=== PATIENT | male | born 1935 | race Caucasian/White ===

== ENCOUNTER → 2016-06-11 | Outpatient (CLI) | payer MEDICARE ==
[~2016-06-11] MED LIST: ACET325T38 PO; BRIN1S OP; CIPR-225 PO; CITA20TA12 PO; DIPH25CA79 PO; DONE10TA12 PO; LATA2.5D19 OP; MELA5TAB14 PO; MEMA10TA2 PO; METO-333 PO; POLY17PO6 PO; SENN-40 PO; TRAZ-28 PO
--- OUTSIDE RECORDS SUMMARY | 2016-06-11 13:10 | XMS REPORT | Continuity of Care Document ---
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 If you do not see the information that you expected, contact Release of Information in the Health Information Management department at [phone] for further assistance in locating additional records.[facility] Active Allergies and Adverse Reactions No Known Allergies Current Medications Prescription Sig. Disp. Refills Start End Date Status Date memantine (NAMENDA) 10 mg Take 1 Tab by mouth twice 60 Tab 0 05/24/20 Active tablet daily. 16 acetaminophen (TYLENOL) Take 2 Tabs by mouth 90 Tab 0 20 Active 325 mg tablet every 6 hours as needed 16 for Pain. metoprolol(#) (LOPRESSOR) Take 0.61 mL by mouth 30 mL 0 05/24/20 Active 10 mg/mL twice daily. 16 donepezil (ARICEPT) 10 mg Take 1 Tab by mouth at 30 Tab 0 05/24/20 Active tablet bedtime daily. 16 Indications: Dementia polyethylene glycol 3350 Take 1 Packet by mouth 36 Each 0 05/24/20 Active (MIRALAX) 17 g packet twice daily. 16 senna/docusate Take 1 Tab by mouth twice 60 Tab 0 05/24/20 Active (SENOKOT-S) 8.6/50 mg daily. 16 tablet brinzolamide(+) (AZOPT) 1 Apply 1 Drop to both eyes 15 mL 0 19/20 Active % ophthalmic suspension twice daily. 16 latanoprost (XALATAN) Apply 1 Drop to both eyes 2.5 mL 0 05/24/20 Active 0.005 % ophthalmic at bedtime daily. 16 solution melatonin 5 mg tab Take 1 Tab by mouth at 30 Each 0 05/24/20 Active bedtime daily. 16 Indications: insomnia citalopram (CELEXA) 20 mg Take 1 Tab by mouth 30 Tab 0 05/24/20 Active tablet daily. 16 traZODone (DESYREL) 50 mg Take 1 Tab by mouth at 30 Tab 0 05/24/20 Active tablet bedtime as needed. 16 Indications: insomnia donepezil (ARICEPT) 10 mg Take 10 mg by mouth at 05/24/20 Discontin tablet bedtime daily. 16 ued latanoprost (XALATAN) Apply 1 Drop to both eyes 05/24/20 Discontin 0.005 % ophthalmic at bedtime daily. 16 ued solution memantine (NAMENDA) 10 mg Take 10 mg by mouth twice 05/24/20 Discontin tablet daily. 16 ued brinzolamide(+) (AZOPT) 1 Apply 1 Drop to both eyes 05/24/20 Discontin % ophthalmic suspension twice daily. 16 ued memantine (NAMENDA) 10 mg Take 1 Tab by mouth twice 60 Tab 0 05/24/20 05/24/20 Discontin tablet daily. 16 16 ued acetaminophen (TYLENOL) Take 2 Tabs by mouth 90 Tab 0 05/24/2005/24 Discontin 325 mg tablet every 6 hours as needed 16 16 ued for Pain. metoprolol(#) (LOPRESSOR) Take 0.61 mL by mouth 30 mL 0 05/24/20 Discontin 10 mg/mL twice daily. 16 16 ued donepezil (ARICEPT) 10 mg Take 1 Tab by mouth at 30 Tab 0 05/24/20 05/24/20 Discontin tablet bedtime daily. 16 16 ued Indications: Dementia polyethylene glycol 3350 Take 1 Packet by mouth 36 Each 0 05/24/20 05/24/20 Discontin (MIRALAX) 17 g packet twice daily. 16 16 ued senna/docusate Take 1 Tab by mouth twice 60 Tab 0 05/24/20 05/24/20 Discontin (SENOKOT-S) 8.6/50 mg daily. 16 16 ued tablet brinzolamide(+) (AZOPT) 1 Apply 1 Drop to both eyes 15 mL 0 05/24/20 05/24/20 Discontin % ophthalmic suspension twice daily. 16 16 ued latanoprost (XALATAN) Apply 1 Drop to both eyes 2.5 mL 0 05/24/20 Discontin 0.005 % ophthalmic at bedtime daily. 16 16 ued solution melatonin 5 mg tab Take 1 Tab by mouth at 30 Each 0 05/24/20 Discontin bedtime daily. 16 16 ued Indications: insomnia citalopram (CELEXA) 20 mg Take 1 Tab by mouth 30 Tab 0 05/24/20 Discontin tablet daily. 16 16 ued traZODone (DESYREL) 50 mg Take 1 Tab by mouth at 30 Tab 0 05/24/20 05/24/20 Discontin tablet bedtime as needed. 16 16 ued Indications: insomnia pneumococcal 23-amanda Inject 0.5 mL into the 0.5 mL 0 05/24/20 vaccine (PPSV23) muscle once for 1 dose. 16 16 (PNEUMOVAX 23) 25 mcg/0.5 mL injection Active Problems Problem Noted Date Fall 05/22/2016 Atrial fibrillation (HCC) 05/22/2016 Sleep disturbance 05/22/2016 Dementia with behavioral disturbance 05/21/2016 Chronic anticoagulation 05/20/2016 SAH (subarachnoid hemorrhage) (HCC) 05/19/2016 Most Recent Encounters Date Type Specialty Providers Description 06/03/2016 Screening Form 06/01/2016 Ancillary Radiology Outpatient, Radiologist Diagnosis unknown Orders (Primary Dx) 05/24/2016 Orders Only Neurosurgery Gaston Simms MD Subdural hematoma (HCC) (Primary Dx) 05/19/2016 [facility] Quiana Bauer MD SAH (subarachnoid - Encounter Wander Holden MD hemorrhage) (HCC) 05/24/2016 05/19/2016 Hospital Radiology Encounter 05/19/2016 Hospital Radiology Encounter Immunizations Name Dates Previously Given Next Due Pneumococcal Vaccine 05/24/2016 (23-Amanda Adult) Social History Tobacco Use Types Packs/Day Years Used Date Former Smoker Alcohol Use Drinks/Week oz/Week Comments No Last Filed Vital Signs Vital Sign Reading Time Taken Blood Pressure 130/82 05/24/2016 12:11 PM CLINIC CLERK Pulse 99 05/24/2016 12:11 PM CLINIC CLERK Temperature 36.6 C (97.8 F) 05/24/2016 12:11 PM CLINIC CLERK Respiratory Rate - - Height 1.727 m (5' 8") 05/19/2016 9:15 PM CLINIC CLERK Weight 67.6 kg (149 lb 0.5 oz) 05/19/2016 9:15 PM CLINIC CLERK Body Mass Index 22.67 05/19/2016 9:15 PM CLINIC CLERK Oxygen Saturation 96% 05/24/2016 12:11 PM CLINIC CLERK Plan of Care Health Maintenance Due Date Last Done Comments Physical (Comprehensive) 01/28/1942 Exam Pertussis Vaccine 01/28/1944 Tetanus Vaccine 1950 Shingles Vaccine 1993 Influenza Vaccine 02/05/2016 Prevnar/Pneumovax (#2) 05/24/2017 05/24/2016 Procedures from Last 3 Months Procedure Name Priority Date/Time Associated Diagnosis Comments ECG-SCAN 05/25/2016 Results for this 1:26 PM CLINIC CLERK procedure are in the results section. ECG UNCONFIRMED-SCAN 05/20/2016 Results for this 6:44 AM CLINIC CLERK procedure are in the results section. Results from Last 3 Months ECG-SCAN (05/25/2016 1:26 PM) Narrative Ordered by an unspecified provider. PHOSPHORUS (05/22/2016 5:40 AM)Only the most recent of 4 results within the time period is included. Component Value Range Phosphorus 3.2 2.0-4.0 MG/DL Specimen Blood MAGNESIUM (05/22/2016 5:40 AM)Only the most recent of 4 results within the time period is included. Component Value Range Magnesium 2.0 1.6-2.6 mg/dL Specimen Blood BASIC METABOLIC PANEL (05/22/2016 5:40 AM)Only the most recent of 4 results within the time period is included. Component Value Range Sodium 137 137-147 MMOL/L Potassium 4.2 3.5-5.1 MMOL/L Chloride 106 98-110 MMOL/L CO2 25 21-30 MMOL/L Anion Gap 6 3-12 Glucose 101 (H) 70-100 MG/DL Blood Urea Nitrogen 17 7-25 MG/DL Creatinine 0.79 0.4-1.24 MG/DL Calcium 8.5 8.5-10.6 MG/DL eGFR Non >60Comment: >60 mL/min The eGFR is not validated for use in drug dosing adjustments. Continue to use estimated creatinine clearance per dosing reference text. Please contact the Clinical Pharmacist for questions. eGFR >60Comment: >60 mL/min The eGFR is not validated for use in drug dosing adjustments. Continue to use estimated creatinine clearance per dosing reference text. Please contact the Clinical Pharmacist for questions. Specimen Blood CBC (05/22/2016 5:40 AM)Only the most recent of 4 results within the time period is included. Component Value Range White Blood Cells 5.3 4.5-11.0 K/UL RBC 3.78 (L) 4.4-5.5 M/UL Hemoglobin 12.2 (L) 13.5-16.5 GM/DL Hematocrit 36.3 (L) 40-50 % MCV 96.0 80-100 FL MCH 32.2 26-34 PG MCHC 33.5 32.0-36.0 G/DL RDW 14.3 11-15 % Platelet Count 102 (L) 150-400 K/UL MPV 7.2 7-[address] HEAD WO CONTRAST (05/20/2016 2:02 PM)Only the most recent of 2 results within the time period is included. Impressions 1. Improving interhemispheric subarachnoid hemorrhage, with trace residual hemorrhage along the pericallosal cistern. 2. Improving or resolved trace subdural hemorrhage, with small residual hypodense subdural effusions. 3. Old right basal ganglia lacunar infarcts and mild nonspecific white matter disease likely related to chronic microvascular ischemic disease. Approved by Sal Toribio M.D. on 05/20/2016 2:32 PM By my electronic signature, I attest that I have personally reviewed the images for this examination and formulated the interpretations and opinions expressed in this report Finalized by Pravin Velazquez M.D. on 05/20/2016 2:36 PM. Dictated by Sal Toribio M.D. on 05/20/2016 2:03 PM. Narrative EXAM: CT HEAD HISTORY: 81-year-old male, SAH. TECHNIQUE: Multiple contiguous axial images were obtained of the brain without intravenous contrast. COMPARISON: CT head May 19, 2016 FINDINGS: Generalized cerebral volume loss with concordant ex vacuo dilatation of the ventricles. Scattered supratentorial white matter hypodensities compatible with nonspecific white matter disease. There are several small old lacunar type infarcts in the right basal ganglia. There is improving subarachnoid hemorrhage along the interhemispheric fissure with mild residual subarachnoid hemorrhage along the pericallosal cistern. There is also improvement in trace subdural hemorrhage, with small residual bilateral hypodense subdural effusions, measuring less than 5 mm in thickness. There is no midline shift or herniation. The andrews white matter interfaces are maintained. The basal cisterns are patent. The mastoid air cells and visualized paranasal sinuses are well-aerated. Procedure Note Interface, Radiant Results - Karla May 20, 2016 2:39 PM CLINIC CLERK EXAM: CT HEAD HISTORY: 81-year-old male, SAH. TECHNIQUE: Multiple contiguous axial images were obtained of the brain without intravenous contrast. COMPARISON: CT head May 19, 2016 FINDINGS: Generalized cerebral volume loss with concordant ex vacuo dilatation of the ventricles. Scattered supratentorial white matter hypodensities compatible with nonspecific white matter disease. There are several small old lacunar type infarcts in the right basal ganglia. There is improving subarachnoid hemorrhage along the interhemispheric fissure with mild residual subarachnoid hemorrhage along the pericallosal cistern. There is also improvement in trace subdural hemorrhage, with small residual bilateral hypodense subdural effusions, measuring less than 5 mm in thickness. There is no midline shift or herniation. The andrews white matter interfaces are maintained. The basal cisterns are patent. The mastoid air cells and visualized paranasal sinuses are well-aerated. IMPRESSION 1. Improving interhemispheric subarachnoid hemorrhage, with trace residual hemorrhage along the pericallosal cistern. 2. Improving or resolved trace subdural hemorrhage, with small residual hypodense subdural effusions. 3. Old right basal ganglia lacunar infarcts and mild nonspecific white matter disease likely related to chronic microvascular ischemic disease. Approved by Sal Toribio M.D. on 05/20/2016 2:32 PM By my electronic signature, I attest that I have personally reviewed the images for this examination and formulated the interpretations and opinions expressed in this report Finalized by Pravin Velazquez M.D. on 05/20/2016 2:36 PM. Dictated by Sal Toribio M.D. on 05/20/2016 2:03 PM. ECG UNCONFIRMED-SCAN (05/20/2016 6:44 AM) Narrative Ordered by an unspecified provider. ALBUMIN (05/20/2016 5:15 AM) Component Value Range Albumin 3.6 3.5-5.0 G/DL URINALYSIS, MICROSCOPIC (05/19/2016 9:30 PM) Component Value Range WBCs,UA 0-2 0-2 /HPF RBCs,UA 2-10 0-3 /HPF MucousUA TRACE Squamous Epithelial Cells 0-2 0-5 Specimen Urine URINALYSIS DIPSTICK (05/19/2016 9:30 PM) Component Value Range Color,UA YELLOW Turbidity,UA CLEAR CLEAR-CLEAR Specific [place]-Urine >1.050 (H) 1.003-1.035 pH,UA 5.0 5.0-8.0 Protein,UA NEG NEG-NEG Glucose,UA NEG NEG-NEG Ketones,UA TRACE (A) NEG-NEG Bilirubin,UA NEG NEG-NEG Blood,UA 2+ (A) NEG-NEG Urobilinogen,UA NORMAL NORM-NORMAL Nitrite,UA NEG NEG-NEG Leukocytes,UA NEG NEG-NEG Urine Ascorbic Acid, UA NEG NEG-NEG Specimen Urine CULTURE-URINE W/SENSITIVITY (05/19/2016 9:30 PM) Component Value Range Battery Name URINE CULTURE Specimen Description URINE, CLEAN CATCH Special Requests NONE Culture NO GROWTH Report Status FINAL 05/20/2016 Specimen Urine - Urine,Clean Catch TEG WITH KAOLIN (05/19/2016 8:21 PM) Component Value Range MA Kaolin 51.9 50.0-70.0 MM R Kaolin 2.8 (L) 3.0-9.0 MIN RK Kaolin 6.0 4.0-12.0 MIN K [place]olin 3.2 (H) 1.0-3.0 MIN Angle Kaolin 61.2 55-75 DEG Lysis30 0.0 0.0-8.0 % Specimen Blood PTT (APTT) (05/19/2016 7:18 PM) Component Value Range APTT 25.9 24.0-40.0 SEC PROTIME INR (PT) (05/19/2016 7:18 PM) Component Value Range INR 1.1 0.8-1.2 TROPONIN-I (05/19/2016 7:18 PM) Component Value Range Troponin-I 0.03 0.0-0.05 NG/ML Specimen Blood CT HEAD EXTERNAL IMAGING (05/19/2016 12:15 AM) Narrative This order has been auto finalized and does not contain a result. CT CHEST/ABD/PEL EXTERNAL IMAGING (05/19/2016) Narrative This order has been auto finalized and does not contain a result.
--- NOTE | 2016-06-11 14:06 | Diagnostic Imaging Report ---
PROCEDURE: CT head without contrast. TECHNIQUE: Multiple contiguous axial images were obtained through the brain without the use of intravenous contrast. INDICATION: Subdural hemorrhage followup. FINDINGS: The ventricles are normal in size, shape, and position. There is no acute parenchymal hemorrhage, edema, or mass. There are small bilateral subdural effusions present with no acute hemorrhage seen. The subdural hemorrhage along falx that was seen on a study from 05/19/2016 has resolved. IMPRESSION: There has been resolution of the subdural hemorrhage along the falx. There have developed small bilateral subdural effusions measuring less than 5 mm in thickness. No new hemorrhage has developed in the interval. Dictated by: Dictated on workstation # [id number]
== END ==
LOC: RAD 13:05
PROVIDERS: ATTEND Neurological Surgery
DX: I62.00 Nontraumatic subdural hemorrhage, unspecified (principal)
CPT/HCPCS: 70450

== ENCOUNTER → 2016-06-11 | Outpatient (CLI) | payer MEDICARE ==
--- OUTSIDE RECORDS SUMMARY | 2016-06-11 13:17 | XMS REPORT | Continuity of Care Document ---
Author Author [facility] Organization [facility] Address Unknown Phone Unavailable Care Team Providers Care Extrusion Die Coordinator Name Role Phone Tim Proctor PCP [phone] Source Comments Some departments are not documenting in the electronic medical record. If you do not see the information that you expected, contact Release of Information in the Health Information Management department at [phone] for further assistance in locating additional records.[facility] Active Allergies and Adverse Reactions No [...] MD Subdural hematoma (HCC) (Primary Dx) 05/19/2016 [facility] Quiana Bauer MD SAH (subarachnoid - Encounter [...] Taken Blood Pressure 130/82 05/24/2016 12:11 PM TIRE CHANGER Pulse 99 05/24/2016 12:11 PM TIRE CHANGER Temperature 36.6 C (97.8 F) 05/24/2016 12:11 PM TIRE CHANGER Respiratory Rate - - Height 1.727 m (5' 8") 05/19/2016 9:15 PM TIRE CHANGER Weight 67.6 kg (149 lb 0.5 oz) 05/19/2016 9:15 PM TIRE CHANGER Body Mass Index 22.67 05/19/2016 9:15 PM TIRE CHANGER Oxygen Saturation 96% 05/24/2016 12:11 PM TIRE CHANGER Plan of Care Health Maintenance Due Date Last Done Comments Physical (Comprehensive) 01/28/1942 Exam Pertussis Vaccine 01/28/1944 Tetanus Vaccine 1950 Shingles Vaccine 1993 Influenza Vaccine 02/05/2016 Prevnar/Pneumovax (#2) 05/24/2017 05/24/2016 Procedures from Last 3 Months Procedure Name Priority Date/Time Associated Diagnosis Comments ECG-SCAN 05/25/2016 Results for this 1:26 PM TIRE CHANGER procedure are in the results section. ECG UNCONFIRMED-SCAN 05/20/2016 Results for this 6:44 AM TIRE CHANGER procedure are in the results section. Results [...] - Karla May 20, 2016 2:39 PM TIRE CHANGER EXAM: CT HEAD HISTORY: 81-year-old male, SAH. [...] Range Color,UA YELLOW Turbidity,UA CLEAR CLEAR-CLEAR Specific [place]-Urine >1.050 (H) 1.003-1.035 pH,UA 5.0 5.0-8.0 Protein,UA [...]
--- NOTE | 2016-06-11 15:00 | Diagnostic Imaging Report ---
INDICATION: Left-sided scrotal swelling. COMPARISON: None. DISCUSSION: Sonographic evaluation of the scrotum was performed. The testicles appear normal and symmetric in echotexture and size bilaterally with normal color Doppler blood flow. The right testicle measures 3.3 x 2.3 x 2.1 cm. The left testicle measures 3.0 x 2.1 x 2.5 cm. Large hydroceles are noted bilaterally. The epididymides are unremarkable. The scrotal wall is unremarkable. There is a left inguinal hernia containing peristalsing bowel loops. IMPRESSION: 1. Left inguinal hernia containing bowel. 2. Large bilateral hydroceles. Dictated by: Dictated on workstation # [id number]
== END ==
LOC: RAD 13:12
PROVIDERS: ATTEND Physician Assistant
DX: K40.90 Unilateral inguinal hernia, without obstruction or gangrene, not specified as recurrent (principal); N43.3 Hydrocele, unspecified
CPT/HCPCS: 76870

== ENCOUNTER 2016-06-19 01:22 | Observation (INO) | payer MEDICARE ==
[2016-06-19] VITALS (9 sets, daily range): BP systolic 93–147; BP diastolic 65–98
[~2016-06-19] VITALS: Ht 177.8 cm; Wt 64.1 kg
--- OUTSIDE RECORDS SUMMARY | 2016-06-19 01:28 | XMS REPORT | Continuity of Care Document ---
Author Author [facility] Organization [facility] Address Unknown Phone Unavailable Care Team Providers Care Shipfitter Helper Name Role Phone Tim Proctor PCP [phone] Source Comments Some departments are not documenting in the electronic medical record. If you do not see the information that you expected, contact Release of Information in the Health Information Management department at [phone] for further assistance in locating additional records.[facility] Active Allergies and Adverse Reactions No [...] MD Subdural hematoma (HCC) (Primary Dx) 05/19/2016 [facility] Quiana Bauer MD SAH (subarachnoid - [...] Taken Blood Pressure 130/82 05/24/2016 12:11 PM LINE CLOSER Pulse 99 05/24/2016 12:11 PM LINE CLOSER Temperature 36.6 C (97.8 F) 05/24/2016 12:11 PM LINE CLOSER Respiratory Rate - - Height 1.727 m (5' 8") 05/19/2016 9:15 PM LINE CLOSER Weight 67.6 kg (149 lb 0.5 oz) 05/19/2016 9:15 PM LINE CLOSER Body Mass Index 22.67 05/19/2016 9:15 PM LINE CLOSER Oxygen Saturation 96% 05/24/2016 12:11 PM LINE CLOSER Plan of Care Health Maintenance Due Date Last Done Comments Physical (Comprehensive) 01/28/1942 Exam Pertussis Vaccine 01/28/1946 Tetanus Vaccine 1950 Shingles Vaccine 1993 Influenza Vaccine 02/05/2016 Prevnar/Pneumovax (#2) 05/24/2017 05/24/2016 Procedures from Last 3 Months Procedure Name Priority Date/Time Associated Diagnosis Comments ECG-SCAN 05/25/2016 Results for this 1:26 PM LINE CLOSER procedure are in the results section. ECG UNCONFIRMED-SCAN 05/20/2016 Results for this 6:44 AM LINE CLOSER procedure are in the results section. Results [...] - Karla May 20, 2016 2:39 PM LINE CLOSER EXAM: CT HEAD HISTORY: 81-year-old male, SAH. [...] Range Color,UA YELLOW Turbidity,UA CLEAR CLEAR-CLEAR Specific [place]-Urine >1.050 (H) 1.003-1.035 pH,UA 5.0 5.0-8.0 Protein,UA [...]
[2016-06-19] MEDS ORDERED: TETANUS,DIPTH,PERTUSS P/F (BOOSTRIX) 0.5 ML VIAL IM ONE (01:30)
[2016-06-19 01:36] LABS: BASOPHILS % (AUTO) 0 % (0-10); EOSINOPHILS # (AUTO) 0.1 10^3/uL (0.0-0.3); EOSINOPHILS % (AUTO) 2 % (0-10); LYMPHOCYTES % (AUTO) 30 % (12-44); MEAN CORPUSCULAR HEMOGLOBIN 33 PG (25-34); MEAN CORPUSCULAR HGB CONC 33 G/DL (32-36); MEAN CORPUSCULAR VOLUME 98 FL (80-99); MEAN PLATELET VOLUME 9.2 FL (7.4-10.4); MONOCYTES # (AUTO) 0.6 X 10^3 (0.0-1.0); MONOCYTES % (AUTO) 9 % (0-12); NEUTROPHILS # (AUTO) 3.9 X 10^3 (1.8-7.8); NEUTROPHILS % (AUTO) 59 % (42-75); PLATELET COUNT 107 10^3/uL (130-400); RED BLOOD COUNT 4.02 10^6/uL (4.35-5.85); RED CELL DISTRIBUTION WIDTH 13.3 % (10.0-14.5); WHITE BLOOD COUNT 6.7 10^3/uL (4.3-11.0)
--- NOTE | 2016-06-19 01:36 | ED Fall/Injury ---
General Chief Complaint: Trauma-Non Activation Stated Complaint: HEAD LAC,VCV,DEMENTIA Nursing Triage Note: Stated was found on floor in blood approx 1245. Patient with laceration to head. Pressure dressing on bleeding controlled Source: patient (IS VERY LIMITED HISTORIAN--PT WITH DEMENTIA ), EMS, [facility] records, old records (ALL PMH IS FROM OLD RECORDS AND ALF RECORD) History of Present Illness Time seen by provider: 01:19 Initial Comments PT ARRIVES VIA EMS FROM [facility] STAFF FOUND PT ON FLOOR IN HIS ROOM AT 00: 45 THIS AM. [place] [facility] [place] [facility] TONIGHT EPISODE WAS NOT WITNESSED PT HAS LACERATION TO RIGHT SIDE OF HEAD, WHICH HAS BEEN DRESSED PRIOR TO ARRIVAL TO ER PT DENIES PAIN ANYWHERE PT DENIES NAUSEA PT WITH DEMENTIA, HISTORY OF TRAUMATIC BRAIN INJURY AND INTRACRANIAL BLEED PT HAS ATRIAL FIBRILLATION AND ACCORDING TO OLD RECORDS, PT WAS ON XARELTO. PT WAS SEEN HERE 05/19/16 AFTER A FALL AT HOME, AND SUSTAINED AN INTRACRANIAL BLEED , AND SCALP LACERATION AND WAS TRANSFERRED TO . NO INTERVENTION/SURGERY WAS DONE AND PT ADMITTED TO [facility] 05/24/16. PT IS NO LONGER ON ANY ANTICOAGULANTS, ACCORDING TO MEDICATION LIST FROM ALF. PT IS UNABLE TO RECALL ANY OF EVENT, AND HAS VERY POOR MEMORY PT DOES KNOW HE IS IN A HOSPITAL BUT DOES NOT KNOW WHAT TOWN HE IS IN, DOES NOT KNOW MONTH OR YEAR PCP: DR. MONTANA Allergies and Home Medications Allergies Coded Allergies: No Known Drug Allergies (Unverified , 05/19/16) Home Medications Acetaminophen 325 Mg Tablet 650 MG PO Q6H PRN PRN PAIN (Reported) Brinzolamide 10 Ml Btl 1 DROP OP BID (Reported) Ciprofloxacin HCl 500 Mg Tablet 14Days 500 MG PO BID (Reported) Citalopram Hydrobromide 20 Mg Tablet 20 MG PO DAILY (Reported) Diphenhydramine HCl 25 Mg Capsule 25 MG PO HS PRN PRN INSOMNIA (Reported) Diphenhydramine HCl 25 Mg Capsule 25 MG PO DAILY (Reported) Donepezil HCl 10 Mg Tablet 10 MG PO DAILY (Reported) Latanoprost 2.5 Ml Drops 1 DROP OP HS (Reported) Melatonin 5 Mg Tablet 5 MG PO DAILY (Reported) Memantine HCl 10 Mg Tablet 10 MG PO DAILY (Reported) Metoprolol Tartrate 25 Mg Tablet 12.5 MG PO BID (Reported) Polyethylene Glycol 3350 17 Gm Powd.pack 17 GM PO BID PRN PRN CONSTIPATION ( Reported) Sennosides/Docusate Sodium 1 Each Tablet 1 EACH PO BID PRN PRN CONSTIPATION ( Reported) Trazodone HCl 50 Mg Tablet 50 MG PO HS PRN PRN INSOMNIA (Reported) Constitutional: other (PT UNABLE TO GIVE ANY INFORMATION) Skin: see HPI Psychiatric/Neurological: See HPI Past Qiysicb-Msuckw-Epgasm Hx Patient Social History Alcohol Use: Denies Use Recreational Drug Use: No Smoking Status: Never a Smoker Recent Foreign Travel: No Contact w/Someone Who Travel: No Recent Hopitalizations: Yes ([facility] 05/21- subarachnoid bleed) Physical Abuse Screen: No Sexual Abuse: No Immunizations Up To Date Tetanus Booster (TDap): Unknown Surgeries HX Surgeries: Yes Surgeries: Cardiac, Coronary Stent Respiratory Hx Respiratory Disorders: No Cardiovascular Hx Cardiac Disorders: Yes (STENT PLACEMENT) Cardiac Disorders: Atrial Fibrillation, Coronary Artery Disease, Heart Attack, Hypertension Neurological Hx Neurological Disorders: Yes (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) Neurological Disorders: Dementia, Stroke, Traumatic Brain Injury Genitourinary Hx Genitourinary Disorders: No Gastrointestinal Hx Gastrointestinal Disorders: Yes (DYSPHAGIA) Gastrointestinal Disorders: Chronic Constipation Musculoskeletal Hx Musculoskeletal Disorders: Yes (UNSTEADY GAIT, FALLS, GENERALIZED WEAKNESS) Endocrine Hx Endocrine Disorders: Yes (hypo mag/phos) HEENT HX ENT Disorders: Yes (DYSPHAGIA) HEENT Disorders: Glaucoma Cancer Hx Cancer: No Psychosocial Hx Psychiatric Problems: Yes (DEMENTIA WITH BEHAVIOR DISTURBANCE) Behavioral Health Disorders: Sleep Difficulties Integumentary HX Skin/Integumentary Disorder: No Blood Transfusions Hx Blood Disorders: No Physical Exam Vital Signs Vital Sign - Last 12Hours Capillary Refill : General Appearance: no apparent distress thin HEENT: PERRL/EOMI (PUPILS PINPOINT BILATERALLY) TMs normal pharynx normal other (3 CM LACERATION TO RIGHT PARIETAL AREA. 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 ) Skin: normal color warm/dry Edison Coma Score Best Eye Response: (4) Open Spontaneously Best Verbal Response: (4) Confused Conversation Best Motor Response: (6) Obeys Commands Edison Total: 14 Laceration Repair : Other Wound Location RIGHT PARIETAL SCALP Wound Length (cm): 3 Wound's Depth, Shape: irregular, sub Q Wound Explored: clean Betadine Prep?: No (BETASEPT AND SALINE) Anesthesia: 1% Lidocaine Staple Repair: Stapler 35W (#6 JORDYN PLACED) Suture Size: 4-0, 5-0 Progress/Results/Core Measures Results/Orders Lab Results Laboratory Tests Test 06/19/16 01:26 Range/Units Activated Partial Thromboplast Time 29 24-35 SEC Basophils # (Auto) 0.0 0.0-0.1 10^3/uL Basophils (%) (Auto) 0 0-10 % Eosinophils # (Auto) 0.1 0.0-0.3 10^3/uL Eosinophils (%) (Auto) 2 0-10 % Hematocrit 39 L 40-54 % Hemoglobin 13.1 L 13.3-17.7 G/DL INR Comment 1.1 0.8-1.4 Lymphocytes # (Auto) 2.0 1.0-4.0 X 10^3 Lymphocytes (%) (Auto) 30 12-44 % Mean Corpuscular Hemoglobin 33 25-34 PG Mean Corpuscular Hemoglobin Concent 33 32-36 G/DL Mean Corpuscular Volume 98 80-99 FL Mean Platelet Volume 9.2 7.4-10.4 FL Monocytes # (Auto) 0.6 0.0-1.0 X 10^3 Monocytes (%) (Auto) 9 0-12 % Neutrophils # (Auto) 3.9 1.8-7.8 X 10^3 Neutrophils (%) (Auto) 59 42-75 % Platelet Count 107 L 130-400 10^3/uL Prothrombin Time 14.1 12.2-14.7 SEC Red Blood Count 4.02 L 4.35-5.85 10^6/uL Red Cell Distribution Width 13.3 10.0-14.5 % White Blood Count 6.7 4.3-11.0 10^3/uL My Orders Orders-NATALIE WOOD DO Saline Lock/Iv-Start (06/19/16 01:29) Ct Head/Cervical Spine Wo (06/19/16 01:29) Cbc With Automated Diff (06/19/16 01:29) Protime With Inr (06/19/16 01:29) Partial Thromboplastin Time (06/19/16 01:29) Pelvis (06/19/16 01:29) Dipht,Pertuss(Acell),Tet Adult (Boostrix (06/19/16 01:30) Vital Signs/I&O Vital Sign - Last 12Hours 06/19/16 06/19/16 01:25 01:25 Temp 96.8 96.9 Pulse 99 99 Resp 18 18 B/P 112/88 112/88 Pulse Ox 95 95 Progress Note : Progress Note NO DETERIORATION IN PT'S CONDITION DURING ER STAY Diagnostic Imaging Comments PELVIS XRAY--NO ACUTE PROCESS, PENDING RADIOLOGIST REVIEW CT HEAD/CERVICAL SPINE--ACUTE RIGHT SUBDURAL HEMATOMA, 1.7 CM WIDE--HAS GROWN IN SIZE FROM [address] DONE 06/11/16, WITH MASS EFFECT. LEFT SUBDURAL UNCHANGED. CERVICAL SPINE UNCHANGED. --PER RADIOLOGIST VIA PHONE AT 0213 AND FAX AT 021 Reviewed: Reviewed by Me, Discussed w/Radiologist Departure Communication Family Conversation 0218--CALLED PT'S DAUGHTER AND DISCUSSED CT RESULTS. SHE WOULD LIKE PT TRANSFERRED TO , OR ADMITTED HERE AND OBSERVED AND REPEAT HEAD CT DONE IN 12 HOURS ( WHICH IS WHAT WAS DONE AT AND PT WAS ADMITTED FOR OBSERVATION THERE-- NO INTERVENTION WAS DONE) AND IF WORSE, TRANSFER PT AT THAT TIME. HOWEVER, DUE TO WEATHER/ROAD CONDITIONS, BOTH GROUND EMS AND AIR TRANSPORT ARE NOT AVAILABLE AT THIS TIME. SHE REPORTS THAT PT'S DESCRIBED MENTATION IS HIS NORMAL BASELINE. Progress Notes 0230--SPOKE WITH DR. ARREDONDO, TRAUMA SURGEON ETHYLENE COMPRESSOR OPERATOR. HE WILL NOT ACCEPT PT, HE ADVISES TRANSFER. INFORMED HIM OF DILEMMA THAT DUE TO WEATHER, NO GROUND OR AIR TRANSPORT IS AN OPTION AT THIS TIME. HE ADVISED ME TO KEEP PT IN ER UNTIL TRANSPORT IS AVAILABLE. 0240--CALLED [facility]--THEY ARE ON DIVERSION AND CANNOT ACCEPT THE PT 0244--CALLED [facility] IN --THEY HAVE BED AVAILABLE. PAGING DR. KOVACS, TRANSFER PHYSICIAN. SENDING CT IMAGES VIA CLOUD 251--SPOKE WITH DR. KOVACS, HE REPORTS THAT THEY HAVE BEEN GETTING ICE IN [facility] AND THAT TRANSPORT FROM THEIR FACILITY/AREA IS NOT AN OPTION EITHER. WILL PAGE DR. WINCHESTER, NEUROSURGEON FOR CONSULT/ RECOMMENDATIONS. 316--SPOKE WITH DR. WINCHESTER, HE ADVISES TO ADMIT HERE, REPEAT CT IN 24 HOURS, OBSERVE FOR ANOTHER 12-24 HOURS AND SEND HOME IF STABLE, WHICH IS WHAT WOULD BE DONE THERE [facility]. HE ADVISES FOLLOW UP IN CLINIC IN 1-2 WEEKS. 329--SPOKE WITH DR. ARREDONDO AGAIN, HE ACCEPTS PT FOR ADMIT TO ICU. WANTS CT HEAD REPEATED AT 1300 AND CONSULT HOSPITALIST. 333/338--PAGED/SPOKE WITH DR. NICK AND INFORMED OF CONSULT. NO ADDITIONAL RECOMMENDATIONS Impression Impression: Primary Impression: ACUTE RIGHT SUBDURAL HEMATOMA Additional Impressions: SUBACUTE BILATERAL SUBDURAL HEMATOMAS SMALL RIGHT SUBARACHNOID HEMORRHAGE RIGHT SCALP LACERATION Dementia Disposition: ADMITTED INPATIENT Condition: Stable Decision to Admit Reason: Admit from ER (Trauma) Decision to Admit/Date: Jun 19, 2016 Time/Decision to Admit Time: 03:30 Departure-Patient Inst. Referrals: FÁTIMA MONTANA MD (PCP/Family) Primary Care Physician Images Head/Face 1 - Laceration, Swelling, Tenderness NATALIE WOOD DO Jun 19, 2016 01:36
[2016-06-19 01:44] LABS: INR 1.1 (0.8-1.4); PROTHROMBIN TIME PATIENT 14.1 SEC (12.2-14.7)
[2016-06-19] MEDS ORDERED: ACET325T38 PO (02:15)
[2016-06-19] MEDS ORDERED: POLY17PO6 PO (02:15)
[2016-06-19] MEDS ORDERED: DIPH25CA79 PO ×2 (02:15)
[2016-06-19] MEDS ORDERED: SENN-40 PO (02:15)
[2016-06-19] MEDS ORDERED: BRIN1S OP (02:15)
[2016-06-19] MEDS ORDERED: CITA20TA12 PO (02:15)
[2016-06-19] MEDS ORDERED: DONE10TA12 PO (02:15)
[2016-06-19] MEDS ORDERED: MEMA10TA2 PO (02:15)
[2016-06-19] MEDS ORDERED: MELA5TAB14 PO (02:15)
[2016-06-19] MEDS ORDERED: METO-333 PO (02:15)
[2016-06-19] MEDS ORDERED: CIPR-225 PO (02:15)
[2016-06-19] MEDS ORDERED: TRAZ-28 PO (02:15)
[2016-06-19] MEDS ORDERED: LATA2.5D19 OP (02:15)
[2016-06-19] MEDS ORDERED: NS IV 500 ML 500 ML ONE ×2 (04:06→06:48)
[2016-06-19] MEDS ORDERED: NS IV 500 ML 500 ML IV ONE (04:12)
[2016-06-19] MEDS ORDERED: NS IV 1000 ML 1,000 ML IV ONE (04:46)
[2016-06-19] MEDS ORDERED: D5 1/2 NS 1000 ML IV SOLUTION 1,000 ML IV ONE (05:18)
[2016-06-19] MEDS ORDERED: D5 1/2 NS 1000 ML IV SOLUTION 1,000 ML IV SCH (06:00)
[2016-06-19] MEDS ORDERED: NS IV 500 ML 500 ML IV SCH (08:00)
--- NOTE | 2016-06-19 08:06 | Diagnostic Imaging Report ---
AP pelvis. INDICATION: Fall. FINDINGS: Single AP view of the pelvis demonstrates no evidence of hip dislocation. Advanced bilateral hip osteoarthritis is present. On this single view, there is no evidence of cortical disruption of the proximal femurs. There is no diastasis of the pubic symphysis or SI joints. Pelvic ring unremarkable. There are degenerative features in the lumbar spine. IMPRESSION: 1. Single view pelvis demonstrates no evidence of dislocation or acute fracture. Advanced osteoarthritic changes are demonstrated within both hips. Dictated by: Dictated on workstation # [id number]
--- NOTE | 2016-06-19 08:26 | Diagnostic Imaging Report ---
PROCEDURE: CT head and CT cervical spine without contrast. TECHNIQUE: Multiple contiguous axial images were obtained through the brain and cervical spine without the use of intravenous contrast. Sagittal and coronal reformations through the cervical spine were then performed. INDICATION: Status post fall. Comparison made with a head CT from June 11, 2016. FINDINGS: When compared to the prior examination, there is new soft tissue swelling overlying of the posterior parietal region without evidence of underlying calvarial fracture. The patient's bilateral subdural collections are again demonstrated with the right demonstrating an interval increase in size and new superimposed acute hyperdense blood products. This now measures up to approximately 2 cm in thickness. Additionally, there is a small volume of subarachnoid hemorrhage demonstrated within the inferior right parietal lobe. There is new shift of the midline from right to left of approximately 2 mm. Left-sided subdural collection is not significantly changed. The size of the ventricular system slightly diminished when compared to the previous exam. The basilar cisterns are patent without evidence of an acute posterior fossa abnormality. The mastoids appear clear. The visualized paranasal sinuses are clear. Cervical spine alignment is unchanged from previous study from May 19, 2016. Maintenance of normal alignment of the craniocervical junction. The facets are normally aligned. The vertebral body heights are maintained. There are advanced multilevel degenerative endplate changes and facet arthropathy but no evidence of an acute cervical spine fracture. The lung apices appear clear. There is no acute soft tissue abnormality within the neck. IMPRESSION: 1. Previous examination demonstrated low density bilateral subdural collections. On today's examination there is new superimposed acute blood products demonstrated within the right subdural space with increased size of the right subdural collection and new right to left midline shift of approximately 2 mm. There is also a small focus of new subarachnoid hemorrhage within the right parietal lobe. 2. Left posterior parietal soft tissue swelling without underlying calvarial fracture. 3. Degenerative features, and alignment of the cervical spine are unchanged from previous examination with no traumatic malalignment or acute fracture demonstrated. 4. [facility]. Dictated by: Dictated on workstation # [id number]
[2016-06-19 08:33] LABS: ANION GAP 8 MMOL/L (5-14); BLOOD UREA NITROGEN 17 MG/DL (7-18); BUN/CREATININE RATIO 18; CALCIUM 8.3 MG/DL (8.5-10.1); CARBON DIOXIDE 24 MMOL/L (21-32); CHLORIDE 107 MMOL/L (98-107); CREATININE SERUM 0.95 MG/DL (0.60-1.30); GFR ESTIMATED > 60; GLUCOSE 85 MG/DL (70-105); POTASSIUM 4.3 MMOL/L (3.6-5.0); SODIUM 139 MMOL/L (135-145)
[2016-06-19 09:13] LABS: BILIRUBIN,URINE NEGATIVE (NEGATIVE); KETONES,URINE NEGATIVE (NEGATIVE); LEUKOCYTE ESTERASE ,URINE 1+ (NEGATIVE); NITRITE,URINE NEGATIVE (NEGATIVE); PH,URINE 5 (5-9); PROTEIN,URINE NEGATIVE (NEGATIVE); UROBILINOGEN,URINE NORMAL (NORMAL)
[2016-06-19 09:20] LABS: CALCIUM OXALATE CRYSTALS,UR FEW /LPF
--- NOTE | 2016-06-19 10:37 | History & Physical-Hospitalist ---
HPI History of Present Illness: HPI/Chief Complaint the patient is an 81-year-old white male with apparent at least moderately advanced Alzheimer's dementia found by halfway staff on the floor in his room with a right parietal laceration. Past history is significant for a fall little over a month ago that led to a subdural hematoma requiring transport to where he was managed conservatively. Previous CT scanning here revealed a right sided [address] head was repeated revealing a 1.5 cm right-sided subdural. We do not have access to use last CT head to know if this is truly a change. The patient had been taking's are also prior to the initial subdural but this is been discontinued and he is no longer on any form of ( blood thinning) therapy. The patient was interviewed in his room where he denies headache. He is pleasant and non-agitated oriented to person only. He reports that he feels well otherwise and denies pain anywhere. Date Seen 06/19/16 Attending Physician Pravin Proctor MD PCP Pravin Proctor MD Referring Physician Date of Admission Jun 19, 2016 at 03:30 Home Medications & Allergies Home Medications Reviewed patient Home Medication Reconciliation Form Allergies Coded Allergies: No Known Drug Allergies (Unverified , 05/19/16) Past Xrtbxzt-Eyyesq-Qvtzml Hx Patient Social History Alcohol Use: Denies Use Recreational Drug Use: No Smoking Status: Never a Smoker Physical Abuse Screen: No Sexual Abuse: No Recent Foreign Travel: No Contact w/other who traveled: No Recent Hopitalizations: Yes ( 05/21- subarachnoid bleed) Recent Infectious Disease Expo: No Immunizations Up To Date Tetanus Booster (TDap): Unknown Surgeries HX Surgeries: Yes Surgeries: Cardiac, Coronary Stent Respiratory Hx Respiratory Disorders: No Cardiovascular Hx Cardiovascular Disorders: Yes (STENT PLACEMENT) Cardiac Disorders: Atrial Fibrillation, Coronary Artery Disease, Heart Attack, Hypertension Neurological Hx Neurological Disorders: Yes (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) Neurological Disorders: Dementia, Stroke, Traumatic Brain Injury Genitourinary Hx Genitourinary Disorders: No Gastrointestinal Hx Gastrointestinal Disorders: Yes (DYSPHAGIA) Gastrointestinal Disorders: Chronic Constipation Musculoskeletal Hx Musculoskeletal Disorders: Yes (UNSTEADY GAIT, FALLS, GENERALIZED WEAKNESS) Endocrine Hx Endocrine Disorders: Yes (hypo mag/phos) HEENT HX ENT Disorders: Yes (DYSPHAGIA) HEENT Disorders: Glaucoma Cancer Hx Cancer: No Psychosocial Hx Psychiatric Problems: Yes (DEMENTIA WITH BEHAVIOR DISTURBANCE) Behavioral Health Disorders: Sleep Difficulties Integumentary HX Skin/Integumentary Disorder: No Blood Transfusions Hx Blood Disorders: No Review of Systems ROS-Unable to Obtain: inaccurate due to advanced dementia Constitutional: see HPI Physical Exam Physical Exam Vital Signs Vital Sign - Last 12Hours 06/19/16 07:19 O2 Delivery Room Air Capillary Refill : Less Than 3 Seconds General Appearance: No Apparent Distress HEENT: PERRL/EOMI Neck: Full Range of Motion Normal Inspection Non Tender Supple Respiratory: Chest Non Tender Lungs Clear Normal Breath Sounds No Accessory Muscle Use No Respiratory Distress Cardiovascular: Regular Rate, Rhythm No Edema No Gallop No JVD No Murmur Normal Peripheral Pulses Gastrointestinal: Normal Bowel Sounds No Organomegaly No Pulsatile Mass Non Tender Soft Neurologic/Psychiatric: Alert No Motor/Sensory Deficits Normal 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 Possible acute exacerbation of previous right subdural hematoma. We'll be repeating CT scanning at the 12 hour interval. Currently physical examination does not suggest a significantly accumulating subdural. If there is evidence for stability consider discharge in the morning. 2. Moderately advanced Alzheimer's dementia. Clinical Quality Measures DVT/VTE Risk/Contraindication: Risk Factor Score Per Nursin RFS Level Per Nursing on Admit: 4+=Very High IDALIA NICK MD Jun 19, 2016 10:37
--- NOTE | 2016-06-19 11:21 | History & Physical-Surgical ---
History of Present Illness History of Present Illness Reason for visit/HPI Trauma- Fall Patient is a 81 year old male with recent falls. Patient found down in his room early this morning. Had recent b/l subdural hematomas. No surgical intervention. Off of antiplatelets and anticoagulation. Patient poor historian due to dementia. No family or caregivers at bedside. Patient is alert but not oriented. No complaints of pain. Ct scan demonstartion old b/l subdural hematomas and in right showing new blood and small right subarachnoid hemorrhage. Patient was admitted to ICU, there was no ability to transfer for neurosurgical consultation due to weather. It was discussed with family by Dr. Mendes. Family wishes to be admitted here and follow up with CT scan. They understood risks of deterioration. Date of Admission Jun 19, 2016 I consulted on this patient on 06/19/16 9:30 Attending Physician Pravin Proctor MD Admitting Physician Pravin Proctor MD Consult Allergies and Home Medications Allergies Coded Allergies: No Known Drug Allergies (Unverified , 05/19/16) Home Medications Acetaminophen 325 Mg Tablet 650 MG PO Q6H PRN PRN PAIN (Reported) Brinzolamide 10 Ml Btl 1 DROP OP BID (Reported) Ciprofloxacin HCl 500 Mg Tablet 14Days 500 MG PO BID (Reported) Citalopram Hydrobromide 20 Mg Tablet 20 MG PO DAILY (Reported) Diphenhydramine HCl 25 Mg Capsule 25 MG PO HS PRN PRN INSOMNIA (Reported) Diphenhydramine HCl 25 Mg Capsule 25 MG PO DAILY (Reported) Donepezil HCl 10 Mg Tablet 10 MG PO DAILY (Reported) Latanoprost 2.5 Ml Drops 1 DROP OP HS (Reported) Melatonin 5 Mg Tablet 5 MG PO DAILY (Reported) Memantine HCl 10 Mg Tablet 10 MG PO DAILY (Reported) Metoprolol Tartrate 25 Mg Tablet 12.5 MG PO BID (Reported) Polyethylene Glycol 3350 17 Gm Powd.pack 17 GM PO BID PRN PRN CONSTIPATION ( Reported) Sennosides/Docusate Sodium 1 Each Tablet 1 EACH PO BID PRN PRN CONSTIPATION ( Reported) Trazodone HCl 50 Mg Tablet 50 MG PO HS PRN PRN INSOMNIA (Reported) Past Ronzcmd-Vejize-Zkxxax Hx Patient Social History Alcohol Use: Denies Use Recreational Drug Use: No Smoking Status: Never a Smoker Recent Foreign Travel: No Contact w/Someone Who Travel: No Recent Infectious Disease Expo: No Recent Hopitalizations: Yes ([facility] 05/21- subarachnoid bleed) Physical Abuse Screen: No Sexual Abuse: No Immunizations Up To Date Tetanus Booster (TDap): Unknown Surgeries HX Surgeries: Yes Surgeries: Cardiac, Coronary Stent Respiratory Hx Respiratory Disorders: No Cardiovascular Hx Cardiac Disorders: Yes (STENT PLACEMENT) Cardiac Disorders: Atrial Fibrillation, Coronary Artery Disease, Heart Attack, Hypertension Neurological Hx Neurological Disorders: Yes (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) Neurological Disorders: Dementia, Stroke, Traumatic Brain Injury Genitourinary Hx Genitourinary Disorders: No Gastrointestinal Hx Gastrointestinal Disorders: Yes (DYSPHAGIA) Gastrointestinal Disorders: Chronic Constipation Musculoskeletal Hx Musculoskeletal Disorders: Yes (UNSTEADY GAIT, FALLS, GENERALIZED WEAKNESS) Endocrine Hx Endocrine Disorders: Yes (hypo mag/phos) HEENT HX ENT Disorders: Yes (DYSPHAGIA) HEENT Disorders: Glaucoma Cancer Hx Cancer: No Psychosocial Hx Psychiatric Problems: Yes (DEMENTIA WITH BEHAVIOR DISTURBANCE) Behavioral Health Disorders: Sleep Difficulties Integumentary HX Skin/Integumentary Disorder: No Blood Transfusions Hx Blood Disorders: No Family Medical History Significant Family History: No Pertinent Family Hx ROS-Unable to Obtain: patient demented Constitutional: see HPI Physical Exam Vital Signs Vital Sign - Last 12Hours 06/19/16 06:00 O2 Delivery Room Air Capillary Refill : Less Than 3 Seconds General Appearance: No Apparent Distress HEENT: PERRL/EOMI Normal ENT Inspection (except bruising at midline posteriorly and laceration right parietal area with january) Neck: Non Tender Supple Respiratory: No Accessory Muscle Use No Respiratory Distress Cardiovascular: Regular Rate, Rhythm Gastrointestinal: Non Tender Soft Rectal: Deferred Back: Normal Inspection No CVA Tenderness No Vertebral Tenderness Extremity: Non Tender No Calf Tenderness Neurologic/Psychiatric: AlertNo Oriented x3 (gcs 14 Eyes 4 Verbal 4 Motor 6) Skin: Other (laceration right head) Data Review Labs Laboratory Tests 06/19/16 01:26: Activated Partial Thromboplast Time 29, Anion Gap 8, BUN/Creatinine Ratio 18, Basophils # (Auto) 0.0, Basophils (%) (Auto) 0, Blood Urea Nitrogen 17, Calcium Level 8.3L, Carbon Dioxide Level 24, Chloride Level 107, Creatinine 0.95, Eosinophils # (Auto) 0.1, Eosinophils (%) (Auto) 2, Estimat Glomerular Filtration Rate > 60, Glucose Level 85, Hematocrit 39L, Hemoglobin 13.1L, INR Comment 1.1, Lymphocytes # (Auto) 2.0, Lymphocytes (%) (Auto) 30, Mean Corpuscular Hemoglobin 33, Mean Corpuscular Hemoglobin Concent 33, Mean Corpuscular Volume 98, Mean Platelet Volume 9.2, Monocytes # (Auto) 0.6, Monocytes (%) (Auto) 9, Neutrophils # (Auto) 3.9, Neutrophils (%) (Auto) 59, Platelet Count 107L, Potassium Level 4.3, Prothrombin Time 14.1, Red Blood Count 4.02L, Red Cell Distribution Width 13.3, Sodium Level 139, White Blood Count 6.7 06/19/16 09:08: Urine Bacteria NEGATIVE, Urine Bilirubin NEGATIVE, Urine Calcium Oxalate Crystals FEWH, Urine Casts NONE, Urine Clarity CLEAR, Urine Color YELLOW, Urine Crystals PRESENTH, Urine Culture Indicated NO, Urine Glucose (UA) NEGATIVE, Urine Ketones NEGATIVE, Urine Leukocyte Esterase 1+H, Urine Mucus NEGATIVE, Urine Nitrite NEGATIVE, Urine Protein NEGATIVE, Urine RBC 0-2, Urine RBC (Auto) NEGATIVE, Urine Specific [place] 1.015L, Urine Squamous Epithelial Cells NONE, Urine Urobilinogen NORMAL, Urine WBC NONE, Urine pH 5 Assessment/Plan Assessment/Plan Assessment/Plan b/l old subdural hematoma with acute right bleed, right subarachnoid hemorrhage , dementia plan repeat ct scn 1 pm unless neuro change neurochecks every hour patient was unable to be transferred this morning. I discussed with daughter on the phone patient status. Discussed possible need to transfer and due to weather that may not be to transfer if deteriorates. She wishes to keep patient here at this time and await repeat ct scan results, which i feel is appropriate at this time. No anticoagulation or antiplatelet due to bleed. Patient pelvis x ray normal. Await ct results at 1 pm or if change in patient status prior to that repeat at that time. Clinical Quality Measures DVT/VTE Risk/Contraindication: Risk Factor Score Per Nursin RFS Level Per Nursing on Admit: 4+=Very High LUIS ARREDONDO DO Jun 19, 2016 11:21 am
--- NOTE | 2016-06-19 13:35 | Diagnostic Imaging Report ---
PROCEDURE: CT head without contrast. TECHNIQUE: Multiple contiguous axial images were obtained through the brain without the use of intravenous contrast. INDICATION: Followup of a subdural hematomas. Comparison is made with a prior performed earlier in the same day. Findings: The degree of hyperdense blood within the patient's right-sided subdural collection does appear to be slightly increased. The overall thickness of the subdural also intervally increased measuring a maximum of approximately 2.3 cm. This is also increased in thickness inferiorly along the lateral aspect of the right frontal lobe. Shift of the midline not significantly changed at approximately 2 mm. The patients low-density chronic left-sided subdural appears unchanged. There is no loss of andrews-white differentiation. The ventricles are stable in size. Basilar cisterns patent and the posterior fossa demonstrates no acute abnormalities. Mastoids appear clear. Visualized paranasal sinuses appear clear. Impression: 1. Patient's right-sided acute on chronic subdural hematoma appears to be slightly larger than on the examination performed at 1:45 AM this morning. The degree of mass effect is not significantly changed. Continued close interval observation and followup is recommended. Dictated by: Dictated on workstation # [id number]
--- NOTE | 2016-07-06 10:56 | DISCHARGE SUMMARY ---
TRANSFER SUMMARY: DATE OF ADMISSION: 06/19/2016 DATE OF TRANSFER: 06/19/2016 ADMITTING DIAGNOSIS: 1. Bilateral subdural hematomas with acute right bleed. 2. Right subarachnoid hemorrhage. 3. Dementia. TRANSFER DIAGNOSIS: 1. Bilateral sub dural hematomas with acute right bleed. 2. Right subarachnoid hemorrhage. 3. Dementia. ADMITTING PHYSICIAN: Hannah ACCEPTING TRANSFER PHYSICIAN: Dr. Turner at [facility] COURSE: The patient is an 81-year-old male who has been having recent falls. The patient was found down in his room earlier the morning of 06/19/2016. He had recent bilateral subdural hematomas with no surgical intervention. He had been off his antiplatelets and not on any anticoagulation. The patient is a poor historian due to his dementia. CT scan of the head and C-spine which demonstrated new superimposed acute blood products demonstrated within the right subdural space with increased size on the right subdural collection and new right to left midline shift of approximately 2 mm. Also a small focus of new subarachnoid hemorrhage within the right parietal lobe, left posterior parietal soft tissue swelling without underlying calvarial fracture. Degenerative features and alignment of the cervical spine are unchanged from previous examination with no traumatic malalignment or acute fracture demonstrated. Previous examination demonstrating low-density bilateral subdural collections. He also had pelvis x-ray demonstrating no acute process. The patient was attempted to be transferred at that time from the emergency department but there is no transfer to be performed due to inclement weather. The patient was admitted into the Intensive Care Unit. He was stable and plan of repeat CT scan to be performed, approximately 12 hours later. The patient had a repeat CT scan, which demonstrated patient's right-sided acute on chronic subdural hematoma to be larger than on the previous examination. The degree of mass effect was not significantly changed but recommended continued close interval observation and follow-up. At this time, it was discussed with the patient's family and also Dr. Turner at [facility] who accepted for transfer. Risk of transfer was discussed with the patient's family who agreed with transfer as well. The patient transferred to [facility] by ambulance 06/19/2016. Job ID: [id number] Dictated Date: 07/05/2016 17:01:03 Pullboat Engineer Date: 07/06/2016 10:26:58/fabi HARDWICK
== END 2016-06-19 16:45 | disposition short-term general hospital (02) ==
LOC: EDUNIT# 01:22 → ER 01:24 → UNDOADMOB 03:30 → ICU 03:30 → UNDODISOB 16:45
PROVIDERS: ADMIT Surgery; ATTEND Internal Medicine
DX: S06.5X9A Traumatic subdural hemorrhage with loss of consciousness of unspecified duration, initial encounter (principal); S06.6X9A Traumatic subarachnoid hemorrhage with loss of consciousness of unspecified duration, initial encounter; S01.01XA Laceration without foreign body of scalp, initial encounter; G30.9 Alzheimer's disease, unspecified; F02.81 Dementia in other diseases classified elsewhere, unspecified severity, with behavioral disturbance; I48.91 Unspecified atrial fibrillation; I25.10 Atherosclerotic heart disease of native coronary artery without angina pectoris; I10 Essential (primary) hypertension; I25.2 Old myocardial infarction; Z95.5 Presence of coronary angioplasty implant and graft; W19.XXXA Unspecified fall, initial encounter; Y92.122 Bedroom in nursing home as the place of occurrence of the external cause
CPT/HCPCS: 12013; 36415; 70450; 72125; 72170; 80048; 81000; 85025; 85610; 85730; 87081; 96360; G0378

== ENCOUNTER → 2016-07-13 | Outpatient (CLI) | payer MEDICARE ==
--- OUTSIDE RECORDS SUMMARY | 2016-07-13 09:39 | XMS REPORT | Continuity of Care Document ---
Author Author [facility] Organization [facility] Address Unknown Phone Unavailable Care Team Providers Care Cell Pourer Name Role Phone Tim Proctor PCP [phone] Source Comments Some departments are not documenting in the electronic medical record. If you do not see the information that you expected, contact Release of Information in the Health Information Management department at [phone] for further assistance in locating additional records.[facility] Active Allergies and Adverse Reactions No Known [...] tablet bedtime as needed. 16 Indications: insomnia Active Problems Problem Noted Date Fall 05/22/2016 Atrial fibrillation (HCC) 05/22/2016 Sleep disturbance 05/22/2016 Dementia with behavioral disturbance 05/21/2016 Chronic anticoagulation 05/20/2016 SAH (subarachnoid hemorrhage) (HCC) 05/19/2016 Most Recent Encounters Date Type Specialty Providers Description 07/02/2016 Ancillary Radiology Outpatient, Radiologist Diagnosis unknown Orders (Primary Dx) 07/01/2016 Documentation Neurosurgery Gaston Simms MD 06/11/2016 Hospital Radiology Encounter 06/11/2016 Hospital Radiology Encounter 06/03/2016 Screening Form 06/01/2016 Ancillary Radiology Outpatient, Radiologist Diagnosis unknown Orders (Primary Dx) 05/24/2016 Orders Only Neurosurgery Gaston Simms MD Subdural hematoma (HCC) (Primary Dx) 05/19/2016 [facility] Quiana Bauer MD SAH (subarachnoid - [...] Taken Blood Pressure 130/82 05/24/2016 12:11 PM PLASMA CENTER TECHNICIAN Pulse 99 05/24/2016 12:11 PM PLASMA CENTER TECHNICIAN Temperature 36.6 C (97.8 F) 05/24/2016 12:11 PM PLASMA CENTER TECHNICIAN Respiratory Rate - - Height 1.727 m (5' 8") 05/19/2016 9:15 PM PLASMA CENTER TECHNICIAN Weight 67.6 kg (149 lb 0.5 oz) 05/19/2016 9:15 PM PLASMA CENTER TECHNICIAN Body Mass Index 22.67 05/19/2016 9:15 PM PLASMA CENTER TECHNICIAN Oxygen Saturation 96% 05/24/2016 12:11 PM PLASMA CENTER TECHNICIAN Plan of Care Date Type Specialty Providers Description 07/20/2016 Appointment Neurosurgery Trini Cordero MD [address] [place] [address] [phone] (Fax) Health Maintenance Due Date Last Done Comments Physical (Comprehensive) 01/28/1942 Exam Pertussis Vaccine 01/28/1944 Tetanus Vaccine 1950 Shingles Vaccine 1993 Influenza Vaccine 02/05/2016 Prevnar/Pneumovax (#2) 05/24/2017 05/24/2016 Procedures from Last 3 Months Procedure Name Priority Date/Time Associated Diagnosis Comments ECG-SCAN 05/25/2016 Results for this 1:26 PM PLASMA CENTER TECHNICIAN procedure are in the results section. ECG UNCONFIRMED-SCAN 05/20/2016 Results for this 6:44 AM PLASMA CENTER TECHNICIAN procedure are in the results section. Results from Last 3 Months US SCROTUM EXTERNAL IMAGING (06/11/2016 12:15 AM) Narrative This order has been auto finalized and does not contain a result. CT HEAD EXTERNAL IMAGING (06/11/2016)Only the most recent of 2 results within the time period is included. Narrative This order has been auto finalized and does not contain a result. ECG-SCAN (05/25/2016 1:26 PM) Narrative Ordered by [...] - Karla May 20, 2016 2:39 PM PLASMA CENTER TECHNICIAN EXAM: CT HEAD HISTORY: 81-year-old male, SAH. [...] Range Color,UA YELLOW Turbidity,UA CLEAR CLEAR-CLEAR Specific Buckeye-Urine >1.050 (H) 1.003-1.035 pH,UA 5.0 5.0-8.0 Protein,UA [...] Troponin-I 0.03 0.0-0.05 NG/ML Specimen Blood CT CHEST/ABD/PEL EXTERNAL IMAGING (05/19/2016) Narrative This order has been auto finalized and does not contain a result.
--- NOTE | 2016-07-13 10:54 | Diagnostic Imaging Report ---
PROCEDURE: CT head without contrast. TECHNIQUE: Multiple contiguous axial images were obtained through the brain without the use of intravenous contrast. INDICATION: Subdural hematoma. Followup from 06/19/16. Findings: Again seen bilateral subdural hematomas with slight increase in size compared to 06/19/2016 on the right side. The maximum thickness of the subdural collection on the right frontoparietal region superiorly is 2.6 CM compared to 2.3 CM on the previous study on a comparable level. There is decreased acute hemorrhagic component at this time with less hypodensity seen within the fluid however. There is a slightly increased mass effect and flattening of the right frontal lobe at this time. There is also increased effacement of the right lateral ventricle compared to the previous exam. There is also increased shift of the midline structures now 6 mm compared to 4 mm previously to the left. There is no intraparenchymal hemorrhage. There is a periventricular and deep white hypodensities compatible with chronic microvascular ischemic changes. The calvarium and the visualized portions of the paranasal sinuses and orbits appear grossly unremarkable. IMPRESSION: Bilateral subdural hematomas with subacute and chronic components. While the acute clot component appears to be decreased, there is increase in the overall size of right subdural collection with increased mass effect on the right frontal lobe, effacement of the right lateral ventricle and increased shift of the midline structures to the left compared to the prior study. Report was faxed and called to Donna/Diesel Inspector office of Dr. Turner by everardo at 10:53 am. Dictated by: Dictated on workstation # [id number]
== END ==
LOC: RAD 09:35
PROVIDERS: ATTEND Neurological Surgery
DX: I62.00 Nontraumatic subdural hemorrhage, unspecified (principal)
CPT/HCPCS: 70450

== ENCOUNTER → 2017-03-27 | Outpatient (CLI) | payer MEDICARE ==
[2017-03-27 23:30] LABS: BILIRUBIN,URINE NEGATIVE (NEGATIVE); KETONES,URINE NEGATIVE (NEGATIVE); LEUKOCYTE ESTERASE ,URINE 3+ (NEGATIVE); NITRITE,URINE NEGATIVE (NEGATIVE); PH,URINE 5 (5-9); PROTEIN,URINE 2+ (NEGATIVE); UROBILINOGEN,URINE NORMAL (NORMAL)
[2017-03-27 23:39] LABS: WBC,URINE 25-50 /HPF
== END ==
LOC: CVS 22:45
PROVIDERS: ATTEND Internal Medicine
DX: R82.99 Other abnormal findings in urine (principal)
CPT/HCPCS: 81000; 87077; 87088; 87186

== ENCOUNTER 2017-05-05 18:34 | Emergency (ER) | payer MEDICARE ==
[~2017-05-05] VITALS: Ht 175.3 cm; Wt 72.6 kg
[~2017-05-05 18:34] MED LIST changes: -BRIN1S OP; +BRIN1S OU; -LATA2.5D19 OP; +LATA2.5D19 OU
--- OUTSIDE RECORDS SUMMARY | 2017-05-05 18:42 | XMS REPORT | Clinical Summary ---
Author Author [facility] Organization [facility] Address Unknown Phone Unavailable Care Team Providers Care Waiter/Waitress Second Class Name Role Phone PCP Unavailable Source Comments Some departments are not documenting in the electronic medical record. If you do not see the information that you expected, contact Release of Information in the Health Information Management department at [phone] for further assistance in locating additional records.[facility] Allergies No Known Allergies Current Medications Prescription Sig. Disp. Refills Start End Date Status Date memantine (NAMENDA) 10 mg Take 1 Tab by mouth twice 60 Tab 0 20 Active tablet daily. 16 acetaminophen (TYLENOL) Take 2 Tabs by mouth 90 Tab 0 20 Active 325 mg tablet every 6 hours as needed 16 for Pain. metoprolol(#) (LOPRESSOR) Take 0.61 mL by mouth 30 mL 0 20 Active 10 mg/mL twice daily. 16 donepezil (ARICEPT) 10 mg Take 1 Tab by mouth at 30 Tab 0 05/24/20 Active tabletIndications: bedtime daily. 16 Dementia Indications: Dementia polyethylene glycol 3350 Take 1 Packet by mouth 36 Each 0 20 Active (MIRALAX) 17 g packet twice daily. 16 senna/docusate Take 1 Tab by mouth twice 60 Tab 0 20 Active (SENOKOT-S) 8.6/50 mg daily. 16 tablet brinzolamide(+) (AZOPT) 1 Apply 1 Drop to both eyes 15 mL 0 05/24/20 Active % ophthalmic suspension twice daily. 16 latanoprost (XALATAN) Apply 1 Drop to both eyes 2.5 mL 0 20 Active 0.005 % ophthalmic at bedtime daily. 16 solution melatonin 5 mg Take 1 Tab by mouth at 30 Each 0 05/24/20 Active tabIndications: insomnia bedtime daily. 16 Indications: insomnia citalopram (CELEXA) 20 mg Take 1 Tab by mouth 30 Tab 0 05/24/20 Active tablet daily. 16 traZODone (DESYREL) 50 mg Take 1 Tab by mouth at 30 Tab 0 05/24/20 Active tabletIndications: bedtime as needed. 16 insomnia Indications: insomnia Active Problems Problem Noted Date Fall 05/22/2016 Atrial fibrillation ([facility]) 05/22/2016 Sleep disturbance 05/22/2016 Dementia with behavioral disturbance 05/21/2016 Chronic anticoagulation 05/20/2016 SAH (subarachnoid hemorrhage) ([facility]) 05/19/2016 Immunizations Name Dates Previously Given Next Due Pneumococcal Vaccine 05/24/2016 (23-Amanda Adult) Social History Tobacco Use Types Packs/Day Years Used Date Former Smoker Alcohol Use Drinks/Week oz/Week Comments No Sex Assigned at Date Recorded Not on file Last Filed Vital Signs Vital Sign Reading Time Taken Blood Pressure 130/82 05/24/2016 12:11 PM P[facility]OSS Pulse 99 05/24/2016 12:11 PM [facility] Temperature 36.6 C (97.8 F) 05/24/2016 12:11 PM [facility] Respiratory Rate - - Oxygen Saturation 96% 05/24/2016 12:11 PM [facility] Inhaled Oxygen - - Concentration Weight 67.6 kg (149 lb 0.5 oz) 05/19/2016 9:15 PM [facility] Height 172.7 cm (5' 8") 05/19/2016 9:15 PM [facility] Body Mass Index 22.66 05/19/2016 9:15 PM P[facility] Plan of Treatment Health Maintenance Due Date Last Done Comments PHYSICAL (COMPREHENSIVE) 01/28/1942 EXAM PERTUSSIS VACCINE 01/28/1946 TETANUS VACCINE 1950 SHINGLES VACCINE 1993 INFLUENZA VACCINE 01/04/2017 PREVNAR/PNEUMOVAX (#2) 05/24/2017 05/24/2016 Results Not on filefrom Last 3 Months
[2017-05-05] MEDS ORDERED: NS IV 500 ML 500 ML IV ONE (21:20)
[2017-05-05] MEDS ORDERED: RT-ALBUTEROL SULF 2.5 MG/3 ML PRE-MIX VIAL INH STA (21:20)
--- NOTE | 2017-05-05 21:31 | ED Respiratory ---
General Chief Complaint: Fever-Adult/Adol Stated Complaint: FEVER Nursing Triage Note: reports fever, cough starting 2 days ago. fever as high as 101.3 decreased level of consciousness. pt is a hospice pt, but these are new symptoms concerning for infection. decreased spo2 at times. Source: patient, family (daughter), caregiver (hospice nurse), spouse Exam Limitations: clinical condition History of Present Illness Time seen by provider: 21:14 Initial Comments Patient presents to ER by private conveyance with a chief complaint per that he has been decreased level of consciousness unresponsive to verbal since about noon today. He ate a little bit of his lunch but not much and nothing for dinner. He is on hospice for end stage dementia. The hospice nurse that she listened to his lungs and they sounded junky she was afraid he may have aspirated. The and hospice nurse agreed that they would not like the patient admitted just assessed and if they find a pneumonia or something can be treated by antibiotics that would like to be treated outpatient at via [facility] from which she came. The reports from the [facility] that the fever was 101.3F. Nursing and ER reports temperature of 99.7F. no coughing. The patient uses oxygen routinely while sleeping. Patient does not have any indwelling lines or catheters or PEG tubes. He has had no nausea or vomiting, diarrhea, complaint of short of breath. says he has been using the oxygen more for the past couple weeks than usual as he is sleeping more. Daughter gives a history that the patient was treated 2-3 weeks ago for MRSA in his urine with Bactrim which is apparently sensitive. Patient also has some mattering of his eyes so today was started by his primary doctor on Bactrim eyedrops. Allergies and Home Medications Allergies Coded Allergies: No Known Drug Allergies (Unverified , 05/19/16) Home Medications Acetaminophen 325 Mg Tablet, 650 MG PO Q6H PRN for PAIN, (Reported) Brinzolamide 10 Ml Btl, 1 DROP OP BID, (Reported) Ciprofloxacin HCl 500 Mg Tablet, 500 MG PO BID for 14 Days, (Reported) Citalopram Hydrobromide 20 Mg Tablet, 20 MG PO DAILY, (Reported) Diphenhydramine HCl 25 Mg Capsule, 25 MG PO HS PRN for INSOMNIA, (Reported) Diphenhydramine HCl 25 Mg Capsule, 25 MG PO DAILY, (Reported) Donepezil HCl 10 Mg Tablet, 10 MG PO DAILY, (Reported) Latanoprost 2.5 Ml Drops, 1 DROP OP HS, (Reported) Melatonin 5 Mg Tablet, 5 MG PO DAILY, (Reported) Memantine HCl 10 Mg Tablet, 10 MG PO DAILY, (Reported) Metoprolol Tartrate 25 Mg Tablet, 12.5 MG PO BID, (Reported) Polyethylene Glycol 3350 17 Gm Powd.pack, 17 GM PO BID PRN for CONSTIPATION, ( Reported) Sennosides/Docusate Sodium 1 Each Tablet, 1 EACH PO BID PRN for CONSTIPATION, ( Reported) Trazodone HCl 50 Mg Tablet, 50 MG PO HS PRN for INSOMNIA, (Reported) Constitutional: see HPI (patient is unable to give any review of systems as he is nonverbal.) Past Emmsvow-Ztfdly-Hwtmjd Hx Patient Social History Recent Foreign Travel: No Contact w/Someone Who Travel: No Recent Infectious Disease Expo: No Recent Hopitalizations: Yes ([facility] 05/21- subarachnoid bleed) Immunizations Up To Date Tetanus Booster (TDap): Unknown Surgeries History of Surgeries: Yes Surgeries: Cardiac, Coronary Stent Respiratory History of Respiratory Disorde: No Currently Using CPAP: No Currently Using BIPAP: No Cardiovascular History of Cardiac Disorders: Yes (STENT PLACEMENT) Cardiac Disorders: Atrial Fibrillation, Coronary Artery Disease, Heart Attack, Hypertension Neurological History of Neurological Disord: Yes (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) Neurological Disorders: Dementia, Stroke, Traumatic Brain Injury Gastrointestinal History of Gastrointestinal Di: Yes (DYSPHAGIA) Gastrointestinal Disorders: Chronic Constipation Musculoskeletal History of Musculoskeletal Dis: Yes (UNSTEADY GAIT, FALLS, GENERALIZED WEAKNESS ) Endocrine History of Endocrine Disorders: Yes (hypo mag/phos) HEENT HEENT Disorders: Glaucoma Cancer History of Cancer: No Psychosocial History of Psychiatric Problem: Yes (DEMENTIA WITH BEHAVIOR DISTURBANCE) Behavioral Health Disorders: Sleep Difficulties Integumentary History of Skin or Integumenta: No Blood Transfusions History of Blood Disorders: No Family Medical History Significant Family History: No Pertinent Family Hx Physical Exam Vital Signs Vital Sign - Last 12Hours 05/05/17 05/05/17 19:08 21:58 Temp 99.7 Pulse 97 Resp 20 B/P (MAP) 106/62 (77) Pulse Ox 92 O2 Delivery Room Air Capillary Refill : Less Than 3 Seconds General Appearance: no apparent distress, thin Eyes: Bilateral Eye Lid Inflammation, Bilateral Eye Other (scant mattering bilateral eyes.) Respiratory: chest non-tender, no respiratory distress, no accessory muscle use , decreased breath sounds Cardiovascular: normal peripheral pulses, regular rate, rhythm, no edema Gastrointestinal: normal bowel sounds, non tender, soft Extremities: non-tender, normal inspection, no pedal edema, normal capillary refill Neurologic/Psychiatric: other (somnolent, nonresponsive to verbal, Edison Coma Scale 8) Skin: normal color, warm/dry Focused Exam Evaluation Lactate Level Laboratory Tests 05/05/17 21:55: Lactic Acid Level 0.70 Lactic Acid Level Laboratory Tests Test 05/05/17 21:55 Lactic Acid Level 0.70 MMOL/L (0.50-2.00) Laceration Repair : Suture Size: 4-0, 5-0 Progress/Results/Core Measures Suspected Sepsis Recent Fever Within 48 Hours: Yes Infection Criteria Present: Suspected New Infection New/Unexplained Altered Menta: Yes Sepsis Screen: Possible Severe Sepsis Risk Sepsis Diagnosis: SIRS Temperature:99.7 Pulse: 97 Respiratory Rate: 20 Laboratory Tests 05/05/17 21:55: White Blood Count 10.0 Blood Pressure 106 /62 Mean: 77 Laboratory Tests 05/05/17 21:55: Lactic Acid Level 0.70 Laboratory Tests 05/05/17 21:55: Creatinine 1.04, Platelet Count 142, Total Bilirubin 0.9 Results/Orders Lab Results Laboratory Tests Test 05/05/17 21:55 Range/Units White Blood Count 10.0 4.3-11.0 10^3/uL Red Blood Count 3.82 L 4.35-5.85 10^6/uL Hemoglobin 12.1 L 13.3-17.7 G/DL Hematocrit 36 L 40-54 % Mean Corpuscular Volume 94 80-99 FL Mean Corpuscular Hemoglobin 32 25-34 PG Mean Corpuscular Hemoglobin Concent 34 32-36 G/DL Red Cell Distribution Width 13.0 10.0-14.5 % Platelet Count 142 130-400 10^3/uL Mean Platelet Volume 9.1 7.4-10.4 FL Neutrophils (%) (Auto) 69 42-75 % Lymphocytes (%) (Auto) 21 12-44 % Monocytes (%) (Auto) 10 0-12 % Eosinophils (%) (Auto) 0 0-10 % Basophils (%) (Auto) 0 0-10 % Neutrophils # (Auto) 6.9 1.8-7.8 X 10^3 Lymphocytes # (Auto) 2.1 1.0-4.0 X 10^3 Monocytes # (Auto) 1.0 0.0-1.0 X 10^3 Eosinophils # (Auto) 0.0 0.0-0.3 10^3/uL Basophils # (Auto) 0.0 0.0-0.1 10^3/uL Sodium Level 138 135-145 MMOL/L Potassium Level 3.9 3.6-5.0 MMOL/L Chloride Level 105 98-107 MMOL/L Carbon Dioxide Level 25 21-32 MMOL/L Anion Gap 8 5-14 MMOL/L Blood Urea Nitrogen 12 7-18 MG/DL Creatinine 1.04 0.60-1.30 MG/DL Estimat Glomerular Filtration Rate > 60 BUN/Creatinine Ratio 12 Glucose Level 112 H 70-105 MG/DL Lactic Acid Level 0.70 0.50-2.00 MMOL/L Calcium Level 8.4 L 8.5-10.1 MG/DL Total Bilirubin 0.9 0.1-1.0 MG/DL Aspartate Amino Transf (AST/SGOT) 11 5-34 U/L Alanine Aminotransferase (ALT/SGPT) 9 0-55 U/L Alkaline Phosphatase 80 40-136 U/L Total Protein 6.6 6.4-8.2 GM/DL Albumin 3.5 3.2-4.5 GM/DL My Orders Orders - DAWNA STEVENSON Cbc With Automated Diff (05/05/17 21:20) Comprehensive Metabolic Panel (05/05/17 21:20) Lactic Acid Analyzer (05/05/17 21:20) Sputum Culture (05/05/17 21:20) Albuterol Pre-Mix Nebs (Rt) (Proventil (05/05/17 21:20) Saline Lock/Iv-Start (05/05/17 21:20) Ns Iv 500 Ml (Sodium Chloride 0.9%) (05/05/17 21:20) Svn Sm Volume Nebulizer Rt-Rfs (05/05/17 21:20) Chest 1 View, Ap/Pa Only (05/05/17 21:20) Medications Given in ED Current Medications Medications Dose Ordered Sig/Kelly Route Start Time Stop Time Status Last Admin Dose Admin Sodium Chloride 500 ml @ 0 mls/hr Q0M ONCE IV 05/05/17 21:20 05/05/17 21:25 DC 05/05/17 22:32 999 MLS/HR Vital Signs/I&O Vital Sign - Last 12Hours 05/05/17 05/05/17 19:08 21:58 Temp 99.7 Pulse 97 Resp 20 B/P (MAP) 106/62 (77) Pulse Ox 92 O2 Delivery Room Air Capillary Refill : Less Than 3 Seconds Blood Pressure Mean: 77 Progress Note #1: Time: 21:32 Progress Note Family history there wishes the patient not to be admitted inpatient. If he does have a pneumonia or other treatment will cause a would like to have antibiotics outpatient at [facility]. Progress Note #2: Time: 22:39 Progress Note Lactate, white cells, chest x-ray did not reveal any evidence of infection. Lung sound the same after the breathing treatment. I think would be reasonable to check a urine but the hospice nurse and family would like that done outpatient at [facility] and they will do it in the morning whenever he urinates. This is reasonable from my standpoint. Discussed return precautions and will discharge him to [facility]. Diagnostic Imaging Diagonstic Imaging: Xray Plain Films/CT/US/NM/MRI: chest (1v) Comments [place], [place] NAME: TENISHA JOHNSON [facility] REC#: [id number] PT STATUS: REG ER : 1935 PHYSICIAN: DAWNA STEVENSON MD ADMIT DATE: 05/05/17/ER Draft Date of Exam:05/05/17 CHEST 1 VIEW, AP/PA ONLY INDICATION: Fever. Cough. COMPARISON: 05/19/2016. EXAMINATION: Single frontal radiographic view of the chest was obtained. FINDINGS: Mild cardiomegaly. Pulmonary vasculature is within normal limits. There is blunting of the bilateral lateral costophrenic angle suggestive of small effusions. There is no pneumothorax. No other focal consolidation is seen. Bony structures show no gross acute abnormality. IMPRESSION: 1. Cardiomegaly, but no evidence of overt failure. 2. Probable small bilateral effusions. Dictated on workstation # [id number] Dict: 05/05/172205 Trans: 05/05/172207 [facility] [id number] Interpreted by: KASSIE VILLA MD Electronically signed by: Reviewed: Reviewed by Me Departure Impression Impression: Primary Impression: Dementia Qualified Codes: F03.90 - Unspecified dementia without behavioral disturbance Additional Impression: Level of consciousness decreased Disposition: 01 HOME, SELF-CARE Condition: Stable Departure-Patient Inst. Decision time for Depature: 22:41 Referrals: FÁTIMA MONTANA MD (PCP/Family) Primary Care Physician Patient Instructions: Dehydration, Adult (DC) Add. Discharge Instructions: Continue the workup outpatient with a UA and anything else that the primary care physician feels appropriate. All discharge instructions reviewed with patient and/or family. Voiced understanding. Copy Copies To 1: FÁTIMA MONTANA MD, TITUS J May 05, 2017 21:31
[2017-05-05 22:06] LABS: BASOPHILS % (AUTO) 0 % (0-10); EOSINOPHILS % (AUTO) 0 % (0-10); LYMPHOCYTES # (AUTO) 2.1 X 10^3 (1.0-4.0); LYMPHOCYTES % (AUTO) 21 % (12-44); MEAN CORPUSCULAR HEMOGLOBIN 32 PG (25-34); MEAN CORPUSCULAR HGB CONC 34 G/DL (32-36); MEAN CORPUSCULAR VOLUME 94 FL (80-99); MEAN PLATELET VOLUME 9.1 FL (7.4-10.4); MONOCYTES % (AUTO) 10 % (0-12); NEUTROPHILS # (AUTO) 6.9 X 10^3 (1.8-7.8); NEUTROPHILS % (AUTO) 69 % (42-75); PLATELET COUNT 142 10^3/uL (130-400); RED BLOOD COUNT 3.82 10^6/uL (4.35-5.85)
--- NOTE | 2017-05-05 22:09 | Diagnostic Imaging Report ---
INDICATION: Fever. Cough. COMPARISON: 05/19/2016. EXAMINATION: Single frontal radiographic view of the chest was obtained. FINDINGS: Mild cardiomegaly. Pulmonary vasculature is within normal limits. There is blunting of the bilateral lateral costophrenic angle suggestive of small effusions. There is no pneumothorax. No other focal consolidation is seen. Bony structures show no gross acute abnormality. IMPRESSION: 1. Cardiomegaly, but no evidence of overt failure. 2. Probable small bilateral effusions. Dictated by: Dictated on workstation # [id number]
[2017-05-05 22:24] LABS: ALANINE AMINOTRANSFERASE 9 U/L (0-55); ALBUMIN 3.5 GM/DL (3.2-4.5); ANION GAP 8 MMOL/L (5-14); ASPARTATE AMINO TRANSFERASE 11 U/L (5-34); BILIRUBIN,TOTAL 0.9 MG/DL (0.1-1.0); BLOOD UREA NITROGEN 12 MG/DL (7-18); BUN/CREATININE RATIO 12; CALCIUM 8.4 MG/DL (8.5-10.1); CARBON DIOXIDE 25 MMOL/L (21-32); CHLORIDE 105 MMOL/L (98-107); CREATININE SERUM 1.04 MG/DL (0.60-1.30); GFR ESTIMATED > 60; GLUCOSE 112 MG/DL (70-105); POTASSIUM 3.9 MMOL/L (3.6-5.0); SODIUM 138 MMOL/L (135-145); TOTAL PROTEIN 6.6 GM/DL (6.4-8.2)
[2017-05-05 23:05] VITALS: BP 110/70
== END 2017-05-05 23:05 | disposition home or self-care (01) ==
LOC: EDUNIT# 18:34 → ER 18:35
DX: F03.90 Unspecified dementia, unspecified severity, without behavioral disturbance, psychotic disturbance, mood disturbance, and anxiety (principal); I48.91 Unspecified atrial fibrillation; I25.2 Old myocardial infarction; I10 Essential (primary) hypertension; I25.10 Atherosclerotic heart disease of native coronary artery without angina pectoris; Z95.5 Presence of coronary angioplasty implant and graft; Z86.73 Personal history of transient ischemic attack (TIA), and cerebral infarction without residual deficits; Z87.820 Personal history of traumatic brain injury; Z87.19 Personal history of other diseases of the digestive system
CPT/HCPCS: 36415; 71010; 80053; 83605; 85025; 94640

== ENCOUNTER 2017-05-08 10:15 | Inpatient (IN) | payer MEDICARE ==
[~2017-05-08] VITALS: Ht 170.2 cm; Wt 78.6 kg
--- OUTSIDE RECORDS SUMMARY | 2017-05-08 10:19 | XMS REPORT | Clinical Summary ---
Author Author [facility] Organization [facility] Address Unknown Phone Unavailable Care Team Providers Care Catheter Builder Name Role Phone PCP Unavailable Source Comments Some departments are not documenting in the electronic medical record. If you do not see the information that you expected, contact Release of Information in the Health Information Management department at [phone] for further assistance in locating additional records.[facility] Allergies No Known Allergies Current Medications Prescription [...] Tab by mouth at 30 Tab 0 20 Active tabletIndications: bedtime daily. 16 Dementia Indications: [...] Problem Noted Date Fall 05/22/2016 Atrial fibrillation ([facility]) 05/22/2016 Sleep disturbance 05/22/2016 Dementia with behavioral disturbance 05/21/2016 Chronic anticoagulation 05/20/2016 SAH (subarachnoid hemorrhage) ([facility]) 05/19/2016 Immunizations Name Dates Previously Given Next Due Pneumococcal Vaccine 05/24/2016 (23-Amanda Adult) Social History Tobacco Use Types Packs/Day Years Used Date Former Smoker Alcohol Use Drinks/Week oz/Week Comments No Sex Assigned at Date Recorded Not on file Last Filed Vital Signs Vital Sign Reading Time Taken Blood Pressure 130/82 05/24/2016 12:11 PM SYSTEMS INTEGRATION ADVISOR Pulse 99 05/24/2016 12:11 PM SYSTEMS INTEGRATION ADVISOR Temperature 36.6 C (97.8 F) 05/24/2016 12:11 PM SYSTEMS INTEGRATION ADVISOR Respiratory Rate - - Oxygen Saturation 96% 05/24/2016 12:11 PM SYSTEMS INTEGRATION ADVISOR Inhaled Oxygen - - Concentration Weight 67.6 kg (149 lb 0.5 oz) 05/19/2016 9:15 PM SYSTEMS INTEGRATION ADVISOR Height 172.7 cm (5' 8") 05/19/2016 9:15 PM SYSTEMS INTEGRATION ADVISOR Body Mass Index 22.66 05/19/2016 9:15 PM SYSTEMS INTEGRATION ADVISOR Plan of Treatment Health Maintenance Due Date Last Done Comments PHYSICAL (COMPREHENSIVE) 01/28/1940 EXAM PERTUSSIS VACCINE 01/28/1944 TETANUS VACCINE 1950 SHINGLES VACCINE 1993 INFLUENZA VACCINE 01/04/2017 PREVNAR/PNEUMOVAX (#2) 05/24/2017 05/24/2016 Results Not on filefrom Last 3 Months
[2017-05-08] MEDS ORDERED: NS IV 1000 ML 1,000 ML IV ONE (10:35)
--- NOTE | 2017-05-08 10:35 | ED General ---
General Stated Complaint: N/V Source of Information: Patient Exam Limitations: Physical Impairments (JACOB HALE MD) History of Present Illness Time Seen by Provider: 10:15 Initial Comments Here by EMS from nursing care facility with increasing altered mental status and dyspnea. Patient found to have O2 saturations in the low 80s on EMS arrival. Patient has advanced dementia and is nonverbal currently. Blood pressure noted to be low normal. Patient's oxygen saturation did increase with increased oxygen via nasal cannula and is in the mid 90s. Patient noted to have heart rate in the 140s with history of atrial fibrillation. Patient has very coarse lung sounds and has urinary tract infection that he is currently on Bactrim for. Patient noted to have a fever of 104. He was treated with Tylenol suppository. Timing/Duration: 2-3 Days, Getting Worse Severity: Severe Associated Systoms: Fever/Chills, Shortness of Air, Weakness (JACOB HALE MD) Allergies and Home Medications Allergies Coded Allergies: No Known Drug Allergies (Unverified , 05/19/16) Home Medications Acetaminophen 325 Mg Tablet, 650 MG PO Q6H PRN for PAIN, (Reported) Brinzolamide 10 Ml Btl, 1 DROP OP BID, (Reported) Ciprofloxacin HCl 500 Mg Tablet, 500 MG PO BID for 14 Days, (Reported) Citalopram Hydrobromide 20 Mg Tablet, 20 MG PO DAILY, (Reported) Diphenhydramine HCl 25 Mg Capsule, 25 MG PO HS PRN for INSOMNIA, (Reported) Diphenhydramine HCl 25 Mg Capsule, 25 MG PO DAILY, (Reported) Donepezil HCl 10 Mg Tablet, 10 MG PO DAILY, (Reported) Latanoprost 2.5 Ml Drops, 1 DROP OP HS, (Reported) Melatonin 5 Mg Tablet, 5 MG PO DAILY, (Reported) Memantine HCl 10 Mg Tablet, 10 MG PO DAILY, (Reported) Metoprolol Tartrate 25 Mg Tablet, 12.5 MG PO BID, (Reported) Polyethylene Glycol 3350 17 Gm Powd.pack, 17 GM PO BID PRN for CONSTIPATION, ( Reported) Sennosides/Docusate Sodium 1 Each Tablet, 1 EACH PO BID PRN for CONSTIPATION, ( Reported) Trazodone HCl 50 Mg Tablet, 50 MG PO HS PRN for INSOMNIA, (Reported) Constitutional: see HPI, fever, weakness Respiratory: short of breath Other Unable to complete review of systems due to clinical condition (JACOB HALE MD) Past Dghesei-Dfuuqr-Konees Hx Patient Social History Recent Hopitalizations: No (JACOB HALE MD) Immunizations Up To Date Tetanus Booster (TDap): Unknown (JACOB HALE MD) Surgeries History of Surgeries: Yes Surgeries: Cardiac, Coronary Stent (JACOB HALE MD) Respiratory History of Respiratory Disorde: No Currently Using CPAP: No Currently Using BIPAP: No (JACOB HALE MD) Cardiovascular History of Cardiac Disorders: Yes (STENT PLACEMENT) Cardiac Disorders: Atrial Fibrillation, Coronary Artery Disease, Heart Attack, Hypertension (JACOB HALE MD) Neurological History of Neurological Disord: Yes (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) Neurological Disorders: Dementia, Stroke, Traumatic Brain Injury (JACOB HALE MD) Gastrointestinal History of Gastrointestinal Di: Yes (DYSPHAGIA) Gastrointestinal Disorders: Chronic Constipation (JACOB HALE MD) Musculoskeletal History of Musculoskeletal Dis: Yes (UNSTEADY GAIT, FALLS, GENERALIZED WEAKNESS ) (JACOB HALE MD) Endocrine History of Endocrine Disorders: Yes (hypo mag/phos) (JACOB HALE MD) HEENT HEENT Disorders: Glaucoma (JACOB HALE MD) Cancer History of Cancer: No (JACOB HALE MD) Psychosocial History of Psychiatric Problem: Yes (DEMENTIA WITH BEHAVIOR DISTURBANCE) Behavioral Health Disorders: Sleep Difficulties (JACOB HALE MD) Integumentary History of Skin or Integumenta: No (JACOB HALE MD) Blood Transfusions History of Blood Disorders: No (JACOB HALE MD) Family Medical History Significant Family History: No Pertinent Family Hx Other Per records as patient is unable to answer due to clinical condition (JACOB HALE MD) Physical Exam-Suspected Sepsis Physical Exam Vital Signs Vital Sign - Last 12Hours 05/08/17 10:15 Temp 97.8 Pulse 140 Resp 24 B/P (MAP) 82/50 (61) Pulse Ox 96 O2 Delivery Room Air O2 Flow Rate 2.00 (VANGIE BISHOP MD) Vital Signs Capillary Refill : (JACOB HALE MD) General Appearance: Chronically ill, Thin HEENT: PERRL/EOMI, Pharynx Normal, Other (dry mucous membranes) Neck: Non Tender, Supple Respiratory: No Accessory Muscle Use, Crackles (throughout) Cardiovascular: No Murmur, Tachycardia Gastrointestinal: Non Tender, Soft Back: Normal Inspection, No CVA Tenderness, No Vertebral Tenderness Extremity: No Calf Tenderness, No Pedal Edema, Slow Capillary Refill Neurologic/Psychiatric: Disoriented x3, Other (essentially unresponsive but occasionally moans.) Skin: normal color, warm/dry (JACOB HALE MD) Focused Exam Evaluation Lactate Level Laboratory Tests 05/08/17 10:25: Lactic Acid Level 2.97*H 05/08/17 12:45: Lactic Acid Level 2.52*H (VANGIE BISHOP MD) Lactic Acid Level Laboratory Tests Test 05/08/17 12:45 Lactic Acid Level 2.52 MMOL/L (0.50-2.00) *H (VANGIE BISHOP MD) Laceration Repair : Suture Size: 4-0, 5-0 (JACOB HALE MD) Progress/Results/Core Measures Suspected Sepsis SIRS Temperature: Pulse: Respiratory Rate: Laboratory Tests 05/08/17 10:25: White Blood Count 9.1 Blood Pressure / Mean: Laboratory Tests 05/08/17 10:25: Lactic Acid Level 2.97*H Laboratory Tests 05/08/17 10:25: Creatinine 1.96H, Platelet Count 150, Total Bilirubin 1.0 05/08/17 11:02: INR Comment 1.1 (JACOB HALE MD) Results/Orders Lab Results Laboratory Tests Test 05/08/17 10:25 05/08/17 11:02 05/08/17 12:45 Range/Units White Blood Count 9.1 4.3-11.0 10^3/uL Red Blood Count 3.62 L 4.35-5.85 10^6/uL Hemoglobin 11.5 L 13.3-17.7 G/DL Hematocrit 35 L 40-54 % Mean Corpuscular Volume 96 80-99 FL Mean Corpuscular Hemoglobin 32 25-34 PG Mean Corpuscular Hemoglobin Concent 33 32-36 G/DL Red Cell Distribution Width 13.0 10.0-14.5 % Platelet Count 150 130-400 10^3/uL Mean Platelet Volume 9.4 7.4-10.4 FL Neutrophils (%) (Auto) 97 H 42-75 % Lymphocytes (%) (Auto) 2 L 12-44 % Monocytes (%) (Auto) 1 0-12 % Eosinophils (%) (Auto) 0 0-10 % Basophils (%) (Auto) 0 0-10 % Neutrophils # (Auto) 8.8 H 1.8-7.8 X 10^3 Lymphocytes # (Auto) 0.2 L 1.0-4.0 X 10^3 Monocytes # (Auto) 0.1 0.0-1.0 X 10^3 Eosinophils # (Auto) 0.0 0.0-0.3 10^3/uL Basophils # (Auto) 0.0 0.0-0.1 10^3/uL Neutrophils % (Manual) 93 % Lymphocytes % (Manual) 3 % Band Neutrophils 4 % Blood Morphology Comment NORMAL Urine Color YELLOW Urine Clarity VERY CLOUDY H Urine pH 5 5-9 Urine Specific [place] 1.015 L 1.016-1.022 Urine Protein 3+ H NEGATIVE Urine Glucose (UA) NEGATIVE NEGATIVE Urine Ketones NEGATIVE NEGATIVE Urine Nitrite POSITIVE H NEGATIVE Urine Bilirubin NEGATIVE NEGATIVE Urine Urobilinogen NORMAL NORMAL MG/DL Urine Leukocyte Esterase 3+ H NEGATIVE Urine RBC (Auto) 5+ H NEGATIVE Urine RBC NONE /HPF Urine WBC TNTC H /HPF Urine Squamous Epithelial Cells NONE /HPF Urine Crystals PRESENT H /LPF Urine Amorphous Sediment LARGE LADONNA URATES H /LPF Urine Bacteria TRACE /HPF Urine Casts NONE /LPF Urine Mucus NEGATIVE /LPF Urine Culture Indicated YES Sodium Level 140 135-145 MMOL/L Potassium Level 4.3 3.6-5.0 MMOL/L Chloride Level 108 H 98-107 MMOL/L Carbon Dioxide Level 22 21-32 MMOL/L Anion Gap 10 5-14 MMOL/L Blood Urea Nitrogen 17 7-18 MG/DL Creatinine 1.96 H 0.60-1.30 MG/DL Estimat Glomerular Filtration Rate 33 BUN/Creatinine Ratio 9 Glucose Level 147 H 70-105 MG/DL Lactic Acid Level 2.97 *H 2.52 *H 0.50-2.00 MMOL/L Calcium Level 8.2 L 8.5-10.1 MG/DL Total Bilirubin 1.0 0.1-1.0 MG/DL Aspartate Amino Transf (AST/SGOT) 15 5-34 U/L Alanine Aminotransferase (ALT/SGPT) 10 0-55 U/L Alkaline Phosphatase 72 40-136 U/L Total Protein 6.5 6.4-8.2 GM/DL Albumin 3.1 L 3.2-4.5 GM/DL Prothrombin Time 14.5 12.2-14.7 SEC INR Comment 1.1 0.8-1.4 Activated Partial Thromboplast Time 32 24-35 SEC (VANGIE BISHOP MD) Micro Results Microbiology 05/08/17 Influenza Types A,B Antigen (KARISSA) - Final, Complete (VANGIE BISHOP MD) Medications Given in ED Current Medications Medications Dose Ordered Sig/Kelly Route Start Time Stop Time Status Last Admin Dose Admin Sodium Chloride 1,000 ml @ 0 mls/hr Q0M ONCE IV 05/08/17 10:35 05/08/17 10:36 DC 05/08/17 11:05 1,000 MLS/HR Vancomycin HCl 500 mg/Sodium Chloride 100 ml @ 100 mls/hr ONCE ONCE IV 05/08/17 13:00 05/08/17 13:59 DC 05/08/17 13:45 100 MLS/HR Vancomycin HCl 1000 mg/Sodium Chloride 250 ml @ 250 mls/hr ONCE ONCE IV 05/08/17 11:30 05/08/17 12:29 DC 05/08/17 11:55 250 MLS/HR (VANGIE BISHOP MD) Vital Signs/I&O Vital Sign - Last 12Hours 05/08/17 05/08/17 10:15 10:15 Temp 97.8 Pulse 140 Resp 24 B/P (MAP) 82/50 (61) Pulse Ox 96 94 O2 Delivery Room Air Nasal Cannula O2 Flow Rate 2.00 (VANGIE BISHOP MD) Vital Signs/I&O Capillary Refill : (JACOB HALE MD) Progress Note : Progress Note Seen and evaluated. IV by EMS. Labs, EKG, chest x-ray, blood cultures and lactic acid ordered. There are concerns for septic shock. Patient is on hospice and will continue hospice at this point. Patient has known urinary tract infection. He is apparently found to be hypoxic and is having problems with that currently but does seem to be responding to increased oxygen level. Normal saline 1 L bolus ordered. 1125: I have spoken with the hospice nurse as well as the daughter of the patient multiple times. There is concerns about possible aspiration as well as the urinary tract infection. He does have urinary tract infection currently. Levaquin 750 mg IV ordered and has been initiated. We are currently deciding the course including GIP admission versus outpatient treatment and the hospice nurses working with the family regarding this. 1212: I have discussed the case with the hospice nurse and the daughter the patient again. Patient does have UTI that is resistant to Levaquin by culture 2 days ago at the nursing care facility. He is on Bactrim and started that yesterday. This does cover the urinary tract infection but patient is currently not swallowing well. He will require IV antibiotics. Vancomycin 1 g IV ordered. 1245: Patient has renal dysfunction and vancomycin dosing can be extended to 1 dose every 48 hours. The nursing care facility will accept the patient back and keep him on vancomycin but he will need PICC line. We are unable to get PICC line currently but he can get that as an outpatient and he has 48 hours to get the line placed prior to the next dose of antibiotics. I have had very michaela and open discussion with the family of the patient regarding his current course and my concerns of septic shock and the likelihood that this will be a life ending event despite treatment. The patient's is here and I had this discussion with her as well as one of his daughters. The other daughter is currently in route from [place]. Overall they would like to discuss this together as a family with the physician and then they will decide on comfort care versus continued treatment. All of these findings and concerns were discussed with Dr. Bishop, whom I will check patient out to pending final disposition. Family is aware and are appreciative of the helping concerns. I did rediscuss this with the hospice nurse at 1255 and she is in agreement. Patient is admitted to hospitalist for stroke and not for dementia. Treatment of UTI can continue without concerns of patient coming off hospice as this is not what he is on hospice for. We will await final family decision. (JACOB HALE MD) ECG Initial ECG Impression Date: May 08, 2017 Initial ECG Impression Time: 10:24 Initial ECG Rate: 143 Initial ECG Rhythm: S.Tach Initial ECG Comparisson: Unchanged Comment Sinus tachycardia with left axis deviation. No evidence of ST elevation [place]. No previous available for comparison. Interpreted by me. (JACOB HALE MD) Diagnostic Imaging Diagonstic Imaging: Xray Plain Films/CT/US/NM/MRI: chest Comments VIA [facility]. [place], [place] NAME: TENISHA JOHNSON [facility] REC#: [id number] PT STATUS: REG ER : 1935 PHYSICIAN: JACOB HALE MD ADMIT DATE: 05/08/17/ER Draft Date of Exam:05/08/17 CHEST 1 VIEW, AP/PA ONLY INDICATION: Unresponsive, congestion. COMPARISON: 05/05/2017 TECHNIQUE: Single frontal radiograph of the chest dated 05/08/2017. FINDINGS: The cardiac silhouette is enlarged, though stable. No significant pulmonary vascular congestion. The left lung is clear of focal pulmonary opacity. Minimal blunting of the right costophrenic angle, similar to the prior examination. No new focal pulmonary opacity. No pneumothorax. Surgical clips within the right neck. No acute osseous abnormality. IMPRESSION: Similar appearing examination demonstrating cardiomegaly without overt congestive heart failure. Persistent trace right basilar pleural effusion. Dictated on workstation # [id number] Dict: 05/08/17 1113 Trans: 05/08/17 1152 [facility] [id number] Interpreted by: NARCISO CAO MD Electronically signed by: Reviewed: Reviewed by Me (JACOB HALE MD) Departure Communication (Admissions) Progress Notes 1443. Received the patient in transfer from Dr. Hale at 1230. He has extensive dictation relative to his efforts with regard to the patient. It was determined by pharmacy calculation that a dose of 1500 mg of vancomycin would cover him until Tuesday. This would allow us to have outpatient scheduled PICC line placement if still necessary before delivering the second dose. We have been waiting for the daughter from [place] to arrive. This has not yet happened. 1515 had a prior discussion with Georgette JOHNSON the doctor daughter from [place]. She was updated on the findings at that time and reported they were to have a family hour and she would call me back. She has just done so and they have elected that they wished to have him admitted for treatment of the urinary tract infection with reactive analysis of the situation and the need for a PICC line to follow. Arrangements are being made at this time. (VANGIE BISHOP MD) Impression Impression: Primary Impression: MRSA urinary tract infection Additional Impression: Severe dementia Disposition: ADMITTED INPATIENT Condition: Unchanged Admissions Decision to Admit Reason: Admit from ER (General) Decision to Admit/Date: May 08, 2017 Time/Decision to Admit Time: 15:21 (VANGIE BISHOP MD) Departure-Patient Inst. Referrals: FÁTIMA MONTANA MD (PCP/Family) Primary Care Physician JACOB HALE MD May 08, 2017 10:35 VANGIE BISHOP MD May 08, 2017 14:48
[2017-05-08] MEDS ORDERED: LEVOFLOXACIN 750 MG/150 ML IV 150 ML IV STA (10:48)
[2017-05-08 10:51] LABS: BILIRUBIN,URINE NEGATIVE (NEGATIVE); CLARITY,URINE VERY CLOUDY; COLOR,URINE YELLOW; GLUCOSE, URINE (UA) NEGATIVE (NEGATIVE); KETONES,URINE NEGATIVE (NEGATIVE); LEUKOCYTE ESTERASE ,URINE 3+ (NEGATIVE); NITRITE,URINE POSITIVE (NEGATIVE); PH,URINE 5 (5-9); PROTEIN,URINE 3+ (NEGATIVE); UROBILINOGEN,URINE NORMAL (NORMAL)
[2017-05-08 10:55] LABS: BASOPHILS % (AUTO) 0 % (0-10); EOSINOPHILS % (AUTO) 0 % (0-10); HEMATOCRIT 35 % (40-54); HEMOGLOBIN 11.5 G/DL (13.3-17.7); LYMPHOCYTES # (AUTO) 0.2 X 10^3 (1.0-4.0); LYMPHOCYTES % (AUTO) 2 % (12-44); MEAN CORPUSCULAR HEMOGLOBIN 32 PG (25-34); MEAN CORPUSCULAR HGB CONC 33 G/DL (32-36); MEAN CORPUSCULAR VOLUME 96 FL (80-99); MEAN PLATELET VOLUME 9.4 FL (7.4-10.4); MONOCYTES # (AUTO) 0.1 X 10^3 (0.0-1.0); MONOCYTES % (AUTO) 1 % (0-12); NEUTROPHILS # (AUTO) 8.8 X 10^3 (1.8-7.8); NEUTROPHILS % (AUTO) 97 % (42-75); PLATELET COUNT 150 10^3/uL (130-400); RED BLOOD COUNT 3.62 10^6/uL (4.35-5.85); WHITE BLOOD COUNT 9.1 10^3/uL (4.3-11.0)
[2017-05-08 11:07] LABS: AMORPHOUS SEDIMENT,UR LARGE AMOR URATES /LPF; BACTERIA,URINE TRACE /HPF; WBC,URINE TNTC /HPF
[2017-05-08 11:10] LABS: ALBUMIN 3.1 GM/DL (3.2-4.5); CALCIUM 8.2 MG/DL (8.5-10.1); CREATININE SERUM 1.96 MG/DL (0.60-1.30); POTASSIUM 4.3 MMOL/L (3.6-5.0); TOTAL PROTEIN 6.5 GM/DL (6.4-8.2)
[2017-05-08 11:18] LABS: INR 1.1 (0.8-1.4); PROTHROMBIN TIME PATIENT 14.5 SEC (12.2-14.7)
[2017-05-08] MEDS ORDERED: VANCOMYCIN INJECTION 1,000 MG in NS (IVPB) 250 ML IV ONE (11:30)
[2017-05-08 11:32] LABS: BAND NEUTROPHILS 4 %; LYMPHOCYTES % (MANUAL) 3 %; NEUTROPHILS % (MANUAL) 93 %
[2017-05-08 11:33] LABS: RBC MORPH NORMAL
--- NOTE | 2017-05-08 11:53 | Diagnostic Imaging Report ---
INDICATION: Unresponsive, congestion. COMPARISON: 05/05/2017 TECHNIQUE: Single frontal radiograph of the chest dated 05/08/2017. FINDINGS: The cardiac silhouette is enlarged, though stable. No significant pulmonary vascular congestion. The left lung is clear of focal pulmonary opacity. Minimal blunting of the right costophrenic angle, similar to the prior examination. No new focal pulmonary opacity. No pneumothorax. Surgical clips within the right neck. No acute osseous abnormality. IMPRESSION: Similar appearing examination demonstrating cardiomegaly without overt congestive heart failure. Persistent trace right basilar pleural effusion. Dictated by: Dictated on workstation # [id number]
[2017-05-08] MEDS ORDERED: VANCOMYCIN INJECTION 500 MG in NS (IVPB) 100 ML IV ONE (13:00)
--- OUTSIDE RECORDS SUMMARY | 2017-05-08 15:47 | XMS REPORT | Clinical Summary ---
Author Author [facility] Organization [facility] Address Unknown Phone Unavailable Care Team Providers Care Senior Clinician Name Role Phone PCP Unavailable Source Comments Some departments are not documenting in the electronic medical record. If you do not see the information that you expected, contact Release of Information in the Health Information Management department at [phone] for further assistance in locating additional records.[facility] Allergies No Known Allergies Current Medications [...] Problem Noted Date Fall 05/22/2016 Atrial fibrillation ([facility]) 05/22/2016 Sleep disturbance 05/22/2016 Dementia with behavioral disturbance 05/21/2016 Chronic anticoagulation 05/20/2016 SAH (subarachnoid hemorrhage) ([facility]) 05/19/2016 Immunizations Name Dates Previously Given Next Due Pneumococcal Vaccine 05/24/2016 (23-Amanda Adult) Social History Tobacco Use Types Packs/Day Years Used Date Former Smoker Alcohol Use Drinks/Week oz/Week Comments No Sex Assigned at Date Recorded Not on file Last Filed Vital Signs Vital Sign Reading Time Taken Blood Pressure 130/82 05/24/2016 12:11 PM TANK TENDER Pulse 99 05/24/2016 12:11 PM TANK TENDER Temperature 36.6 C (97.8 F) 05/24/2016 12:11 PM TANK TENDER Respiratory Rate - - Oxygen Saturation 96% 05/24/2016 12:11 PM TANK TENDER Inhaled Oxygen - - Concentration Weight 67.6 kg (149 lb 0.5 oz) 05/19/2016 9:15 PM TANK TENDER Height 172.7 cm (5' 8") 05/19/2016 9:15 PM TANK TENDER Body Mass Index 22.66 05/19/2016 9:15 PM TANK TENDER Plan of Treatment Health Maintenance Due Date Last Done Comments PHYSICAL (COMPREHENSIVE) 01[birth year]1940 EXAM PERTUSSIS VACCINE 01/28/1944 TETANUS VACCINE 1950 SHINGLES VACCINE 1993 INFLUENZA VACCINE 01/04/2017 PREVNAR/PNEUMOVAX (#2) 05/24/2017 05/24/2016 Results Not on filefrom Last 3 Months
[2017-05-08 16:22] VITALS: BP 90/55
[2017-05-08] MEDS: NS IV 1000 ML 1,000 ML IV SCH (16:32)
[2017-05-08] MEDS ORDERED: ACETAMINOPHEN 650 MG SUPP (TYLENOL) PR PRN ×2 (16:45→18:30)
[2017-05-08] MEDS ORDERED: HALO0.5T PO (17:32)
[2017-05-08] MEDS ORDERED: ALBU2.5V4 IH (17:32)
[2017-05-08] MEDS ORDERED: MORP100S3 PO (17:32)
[2017-05-08] MEDS ORDERED: LORA0.5T PO (17:32)
[2017-05-08] MEDS ORDERED: BUSP5TAB59 PO (17:32)
[2017-05-08] MEDS ORDERED: ATRO10DR PO (17:32)
[2017-05-08] MEDS ORDERED: PLTR10OP OS (17:32)
[2017-05-08] MEDS ORDERED: GUAI600T86 PO (17:32)
[2017-05-08] MEDS ORDERED: MAG30ORA2 PO (17:32)
[2017-05-08] MEDS ORDERED: LORA10TA7 PO (17:32)
[2017-05-08] MEDS ORDERED: TRAZ-28 PO (17:32)
[2017-05-08] MEDS ORDERED: ONDA4TAB10 PO (17:32)
[2017-05-08] MEDS ORDERED: SULF1TAB35 PO (17:32)
[2017-05-08] MEDS ORDERED: ARTIFICAL TEARS 0.4 ML UNIT DOSE (REFRESH PLUS) OU PRN (18:30)
[2017-05-08] MEDS ORDERED: PROMETHAZINE INJ 25 MG/ML (PHENERGAN) AMP IVP PRN (18:30)
[2017-05-08] MEDS ORDERED: ARTIFICIAL TEARS OINT (LACRI-LUBE) 3.5 GM TUBE OU PRN (18:30)
[2017-05-08] MEDS ORDERED: GLYCOPYRROLATE 0.2 MG/ML (ROBINUL) 2 ML VIAL IV PRN (18:30)
[2017-05-08] MEDS ORDERED: ONDANSETRON 4 MG/2 ML (SDV) Z0FRAN IVP PRN (18:30)
[2017-05-08] MEDS ORDERED: BISACODYL 10 MG SUPP (DULCOLAX) PR PRN (18:30)
[2017-05-08] MEDS ORDERED: LIDOCAINE UROJET 2% GEL 10 ML PKG TOP ONE (19:00)
[2017-05-08] MEDS: LORazepam INJ 2 MG/ML (ATIVAN) VIAL IVP PRN (19:51)
[2017-05-09] VITALS (10 sets, daily range): BP systolic 103–160; BP diastolic 55–67
[2017-05-09] MEDS: NS IV 1000 ML 1,000 ML IV SCH ×3 (00:27→17:38)
[2017-05-09] MEDS: RT-ALBUTEROL/IPRATROPIUM 3 ML (DUONEB) VIAL INH PRN ×2 (01:26→17:03)
[2017-05-09] MEDS: morphine INJ 4 MG/ML 1 ML (VIAL/SYRINGE) IV PRN (03:52)
[2017-05-09 05:57] LABS: BASOPHILS % (AUTO) 0 % (0-10); EOSINOPHILS % (AUTO) 0 % (0-10); HEMATOCRIT 31 % (40-54); HEMOGLOBIN 10.1 G/DL (13.3-17.7); LYMPHOCYTES # (AUTO) 0.4 X 10^3 (1.0-4.0); LYMPHOCYTES % (AUTO) 3 % (12-44); MEAN CORPUSCULAR HEMOGLOBIN 32 PG (25-34); MEAN CORPUSCULAR HGB CONC 33 G/DL (32-36); MEAN CORPUSCULAR VOLUME 97 FL (80-99); MEAN PLATELET VOLUME 9.3 FL (7.4-10.4); MONOCYTES # (AUTO) 0.5 X 10^3 (0.0-1.0); MONOCYTES % (AUTO) 5 % (0-12); NEUTROPHILS # (AUTO) 9.9 X 10^3 (1.8-7.8); NEUTROPHILS % (AUTO) 92 % (42-75); PLATELET COUNT 123 10^3/uL (130-400); RED BLOOD COUNT 3.21 10^6/uL (4.35-5.85); RED CELL DISTRIBUTION WIDTH 13.3 % (10.0-14.5); WHITE BLOOD COUNT 10.8 10^3/uL (4.3-11.0)
[2017-05-09 06:15] LABS: ALBUMIN 2.8 GM/DL (3.2-4.5); BILIRUBIN,TOTAL 0.5 MG/DL (0.1-1.0); CALCIUM 7.8 MG/DL (8.5-10.1); CREATININE SERUM 2.02 MG/DL (0.60-1.30); POTASSIUM 4.2 MMOL/L (3.6-5.0); TOTAL PROTEIN 5.8 GM/DL (6.4-8.2)
[2017-05-09] MEDS: LORazepam INJ 2 MG/ML (ATIVAN) VIAL IVP PRN ×2 (07:32→17:23)
[2017-05-09] MEDS: SALIVA STIMULANT MOUTH SPRAY (BIOTENE) 1.5 OZ MM PRN (08:13)
--- NOTE | 2017-05-09 09:15 | History & Physical-Hospitalist ---
HPI History of Present Illness: HPI/Chief Complaint Pt is an 82yoCM who presented to the ER for altered mentation and dyspnea. He had a history of dementia with poor PO intake and is admitted to hospice for this. He was found to have UTI on admission and admitted for IV abx. He has a history of recurrent UTI and most recently grew MRSA in his urine. Due to his dementia he is unable to provide any history but his daughter who is a physician in was at bedside. She confirms that he is on hospice but they would like to continue with IV abx and treatment of sepsis but would not like to pursue further aggressive measures such at TEEs, CPR, or intubation. She is worried about his ability to maintain a PICC line as well. Source: patient Exam Limitations: clinical condition Date Seen 05/09/17 Time Seen by Provider: 08:15 Attending Physician Linh Franco DO PCP Pravin Proctor MD Referring Physician Date of Admission May 08, 2017 at 3:17 pm Home Medications & Allergies Home Medications Reviewed patient Home Medication Reconciliation Form Allergies Allergies Coded Allergies No Known Drug Allergies ([id number]/3/17) Past Jpkskxj-Rbwsdi-Zowxre Hx Patient Social History Marrital Status: Employed/Student: retired Alcohol Use: Denies Use Recreational Drug Use: No Smoking Status: Unknown if Ever Smoked Physical Abuse Screen: No Sexual Abuse: No Recent Hopitalizations: No Immunizations Up To Date Tetanus Booster (TDap): Unknown Date of Pneumonia Vaccine: Jun 06, 2016 Date of Influenza Vaccine: Apr 22, 2017 Surgeries Yes Cardiac, Coronary Stent Respiratory No Currently Using CPAP: No Currently Using BIPAP: No Cardiovascular Yes (STENT PLACEMENT) Atrial Fibrillation, Coronary Artery Disease, Heart Attack, Hypertension Neurological Yes (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) Dementia, Stroke, Traumatic Brain Injury Genitourinary Yes (current UTI) Gastrointestinal Yes (DYSPHAGIA) Gastroesophageal Reflux, Chronic Constipation Musculoskeletal Yes (UNSTEADY GAIT, FALLS, GENERALIZED WEAKNESS) Endocrine History of Endocrine Disorders: Yes (hypo mag/phos/K+) HEENT History of HEENT Disorders: Yes HEENT Disorders: Glaucoma Cancer No Psychosocial History of Psychiatric Problem: Yes (DEMENTIA WITH BEHAVIOR DISTURBANCE) Behavioral Health Disorders: Sleep Difficulties Integumentary History of Skin or Integumenta: No Blood Transfusions History of Blood Disorders: No Family Medical History Significant Family History: No Pertinent Family Hx Family Hx: Patient reports no known family medical history. Review of Systems ROS-Unable to Obtain: Unable to obtain due to dementia Constitutional: see HPI Physical Exam Physical Exam Vital Signs Vital Sign - Last 12Hours 05/08/17 10:15 Temp 97.8 Pulse 140 Resp 24 B/P (MAP) 82/50 (61) Pulse Ox 96 O2 Delivery Room Air O2 Flow Rate 2.00 Capillary Refill : Less Than 3 Seconds General Appearance: No Apparent Distress, WD/WN, Other (sleeping during exam) HEENT: Moist Mucous Membranes Neck: Non Tender, Supple Respiratory: Lungs Clear, No Respiratory Distress Cardiovascular: No Edema, No Murmur, Tachycardia Gastrointestinal: Normal Bowel Sounds, Non Tender, Soft Extremity: Normal Capillary Refill, No Calf Tenderness Neurologic/Psychiatric: Other (does not arouse to exam, sleeping, tremor noted) Skin: Normal Color, Warm/Dry Results Results/Procedures Lab Laboratory Tests 05/08/17 10:25 05/09/17 05:23 Radiology IMPRESSION: Similar appearing examination demonstrating cardiomegaly without overt congestive heart failure. Persistent trace right basilar pleural effusion. Assessment/Plan Admission Diagnosis Severe Sepsis Diagnosis/Problems Diagnosis/Problems (1) Staphylococcus aureus bacteremia with sepsis Assessment & Plan: Severe Sepsis from staph bacteremia Lactic acid trending down Continue IVF Continue Vanc, pharmacy to dose On hospice, palliative care consulted (2) Normocytic anemia Assessment & Plan: Mild, trend (3) CITLALY (acute kidney injury) Status: Acute Assessment & Plan: Baseline Creatinine 1.04 2.02 today Continue IVF Moya in place to monitor UOP (4) Severe dementia Status: Acute Assessment & Plan: Hospice diagnosis Palliative Care Consulted (5) Intracranial hemorrhage after injury without loss of consciousness Status: Acute Assessment & Plan: H/o subdural hematoma anticoagulation contraindicated Qualifiers: Qualified Codes: S06.300S - 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, sequela (6) Counseling regarding end of life decision making Assessment & Plan: Discussed with daughter about prognosis Will continue IV Vanc but has declined MARIEL at this time Recommended to direct goals towards comfort but family would like to reevaluate after on abx for longer Also called and discussed with PCP Franklin Baez APRN and confirmed hospice status (7) Prophylactic measure Assessment & Plan: SCDs (h/o of Subdural) NS at 125ml/hr Diet as tolerated Clinical Quality Measures DVT/VTE Risk/Contraindication: Risk Factor Score Per Nursin RFS Level Per Nursing on Admit: 4+=Very High TEJAS EBNSON MD May 09, 2017 09:15
[2017-05-09] MEDS ORDERED: TROUGH ORDER-PHARMACY XX NR (11:00)
[2017-05-09] MEDS: VANCOMYCIN INJECTION 1,000 MG in NS (IVPB) 250 ML IV SCH (11:38)
--- NOTE | 2017-05-09 11:56 | Physical Therapy Evaluation ---
PT Evaluation-General Medical Diagnosis Admission Date May 08, 2017 at 15:17 Medical Diagnosis: N/V Onset Date: May 08, 2017 Therapy Diagnosis Therapy Diagnosis: weakness, debility Height/Weight Height (Feet): 5 Height (Inches): 7.00 Weight (Pounds): 167 Weight (Ounces): 3.0 Precautions Precautions/Isolations: Contact Isolation, Fall Prevention Weight Bear Status Right Lower Extremity: Right Weight Bearing/Tolerated Left Lower Extremity: Left Weight Bearing/Tolerated Referral Reason for Referral: Evaluation/Treatment, Strengthening, Gait Medical History Pertinent Medical History: Atrial Fib, CAD, Dementia, [place], TBI Additional Medical History UTI, stroke, chr. constipation, falls, sepsis Social History Home: Shelter Prior/Core FIM Prior Level of Function Functional [place] Measure 0=Not Assessed/NA 4=Minimal Assistance 1=Total Assistance 5=Supervision or Setup 2=Maximal Assistance 6=Modified [place] 3=Moderate Assistance 7=Complete [place] Bed Mobility: 1 Transfers (B,C,W/C) (FIM): 1 Gait: 1 Locomotion: 1 Wheelchair Mobility: 1 Patient completely dependent for movement and non-verbal. Patient does not respond to request for movement from PT. PT Evaluation-Current Subjective Patient is supine in bed. He does not respond to PT upon entering the room. Patient is asked to perform tasks such as opening his eyes and moving his extremities. He does not respond to any requests. Pain Comment: unable to assess Pt/Family Goals unable to assess Objective Patient Orientation: Unable to Assess, Non-Verbal/Aphasic, Unresponsive Problem Solving: Poor Attachments: Moya Catheter ROM/Strength ROM Upper Extremities NA ROM Lower Extremities PROM performed- R LE resistant to movement possibly due to spasticity from previous stroke. L LE movement limited Strength Upper Extremities Unable to assess Strength Lower Extremities unable to assess Integumentary/Posture Integumentary intact Bowel Incontinence: Yes Bladder Incontinence: Moya Cath Posture slouched, kyphotic curvature in thoracic spine. Patient shakes with positional change in a tremor-like fashion. Neuromuscular (Tone, Coordination, Reflexes) unable to assess coordination appears to be poor Sensory Vision: Unable to Assess Hearing: Unable to Assess Sensation Up. Extremities unable to assess Sensation Lower Extremities unable to assess Transfers Functional [place] Measure 0=Not Assessed/NA 4=Minimal Assistance 1=Total Assistance 5=Supervision or Setup 2=Maximal Assistance 6=Modified [place] 3=Moderate Assistance 7=Complete [place] Transfers (B, C, W/C) (FIM): 1 Scootin Rollin Supine to/from Sit: 1 Patient is unresponsive and requires dependent transfer by two therapists for bed mobility. Patient also requires assist with remaining seated at edge of bed. Balance Sitting Static: Poor Sitting Dynamic: Poor Assessment/Needs Patient lacks ability to follow commands or communicate with PT. Patient does not qualify for PT intervention on this date due to inability to safely perform interventions from lack of responsiveness and communication with PT. Dr. Henry made aware. Rehab Potential: Poor PT Plan Treatment/Plan Treatment Plan: Discontinue PT Treatment Plan: Other Treatment Duration: May 09, 2017 Frequency: Estimated Hrs Per Day: Other Patient and/or Family Agrees t: Yes PT discontinued on this date. Discharge Recommendations Therapy D/C Recommendations: Assisted Living, Shelter Placement, [facility] (TCU/NH) Time/GCodes Time In: 1120 Time Out: 1130 Total Billed Treatment Time: 10 Total Billed Treatment 1 visit EVM 10 min YUVAL WYNNE PT May 09, 2017 11:56
--- NOTE | 2017-05-09 14:58 | Occupational Therapy Eval ---
OT Evaluation-General/PLF Medical Diagnosis Admission Date May 08, 2017 at 15:17 Medical Diagnosis: N/V Onset Date: May 08, 2017 Therapy Diagnosis Therapy Diagnosis: decreased self care Height/Weight Height (Feet): 5 Height (Inches): 7.00 Weight (Pounds): 167 Weight (Ounces): 3.0 Precautions Precautions/Isolations: Contact Isolation, Fall Prevention Safety Interventions: Bed Exit Alarm Referral Physician: Elaine Referral Reason: Evaluation/Treatment Medical History Pertinent Medical History: Atrial Fib, CAD, Dementia, HTN, [place], TBI Additional Medical History Coronary stent. Stroke, TBI (bleed 05-19-16). Dysphagia. Chronic constipation. Unsteady gait, falls. Glaucoma. Sleep difficulties. Renal dysfunction. Current History Admitted with AMS, dyspnea. Has UTI with MRSA. On hospice for dementia. Non- verbal Reviewed History: Yes Social History Home: [facility] ADL-Prior Level of Function ADL PLOF Comments Nursing reported that he was [facility] but would help a little bit. 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 No pain behaviors observed. Mental Status/Objective Patient Orientation: Unable to Assess Attachments: Moya Catheter, IV Current Upper Extremity ROM Increased muscle tone in bilat UEs. Limited passive motion at end ranges. Pt moved arms restlessly but not on command Upper Extremity Strength Unable to assess ADL-Treatment ADL-Current Pt is NPO. He is dependant for toileting and incontinent of stools. He is unable to follow commands for assisting with other ADLs Functional [place] Measure 0=Not Assessed/NA 4=Minimal Assistance 1=Total Assistance 5=Supervision or Setup 2=Maximal Assistance 6=Modified [place] 3=Moderate Assistance 7=Complete IndependenceIRFPAI Quality Coding Scale 6 Independent with activity with or without an assistive device 5 Patient requires set up or clean up by helper. Patient completes activity by themselves 4 Supervision or touching assist (CGA). [place] provide cues , steadying assist 3 The helper provides less than half the effort to complete the activity 2 The helper provides more than half the effort to complete the activity 1 Dependent. The helper does all the effort to complete an activity 7 Patient refused to complete or attempt activity 9 The patient did not perform the activity before the current illness or injury 88 Not attempted due to Medical conditions or safety concerns Education OT Patient Education: Purpose of tx/functional activities Teaching Recipient: Patient Response to Teaching: Unable to Comprehend OT Education/Plan Problem List/Assessment Assessment: No Skilled OT Needs ID'd Pt is unable to follow commands or participate in ADLs. No skilled needs identified Discharge Recommendations Plan/Recommendations: Discontinue OT Therapy D/C Recommendations: Snf Placement Treatment Plan/Plan of Care Treatment,Training & Education: No Patient would benefit from OT for education, treatment and training to promote independence in ADL's, mobility, safety and/or upper extremity function for ADL' s. Treatment Duration: May 09, 2017 Frequency: 1 time per week Estimated Hrs Per Day: Other Agreement: No Rehab Potential: Guarded Time/GCodes Start Time: 14:25 Stop Time: 14:32 Total Time Billed (hr/min): 7 Billed Treatment Time visit, evaluation low intensity 7 minutes BARRETT CAMARA OT May 09, 2017 14:58
[2017-05-09] MEDS ORDERED: ACETAMINOPHEN 325 MG TABLET/CAPLET (TYLENOL) PO PRN (15:15)
[2017-05-09] MEDS ORDERED: LORazepam 0.5 MG (ATIVAN) TABLET PO PRN (15:15)
[2017-05-09] MEDS ORDERED: ACETAMINOPHEN 500 MG TAB (TYLENOL) PO PRN (17:00)
[2017-05-09] MEDS: cefTRIAXone INJECTION 1,000 MG in NS (IVPB) 50 ML IV SCH (17:39)
[2017-05-09] MEDS: busPIRone 5 MG (BUSPAR) TAB PO SCH (22:07)
[2017-05-09] MEDS: LATANOPROST 0.005% (XALATAN) OPHTH SOLN 2.5 ML OU SCH (22:07)
[2017-05-09] MEDS: HALOPERIDOL 0.5 MG (HALDOL) TAB PO SCH (22:08)
[2017-05-09] MEDS: traZODone 50 MG (DESYREL) TAB PO SCH (22:08)
[2017-05-09] MEDS: ACETAMINOPHEN 650 MG SUPP (TYLENOL) PR SCH (22:16)
[2017-05-10] VITALS (12 sets, daily range): BP systolic 93–125; BP diastolic 55–87
[2017-05-10] MEDS: ACETAMINOPHEN 650 MG SUPP (TYLENOL) PR SCH ×6 (01:08→21:08)
[2017-05-10] MEDS: NS IV 1000 ML 1,000 ML IV SCH ×4 (02:08→19:33)
[2017-05-10 07:03] LABS: BASOPHILS % (AUTO) 0 % (0-10); EOSINOPHILS # (AUTO) 0.1 10^3/uL (0.0-0.3); EOSINOPHILS % (AUTO) 1 % (0-10); HEMATOCRIT 30 % (40-54); HEMOGLOBIN 9.7 G/DL (13.3-17.7); LYMPHOCYTES # (AUTO) 0.6 X 10^3 (1.0-4.0); LYMPHOCYTES % (AUTO) 7 % (12-44); MEAN CORPUSCULAR HEMOGLOBIN 31 PG (25-34); MEAN CORPUSCULAR HGB CONC 32 G/DL (32-36); MEAN CORPUSCULAR VOLUME 98 FL (80-99); MEAN PLATELET VOLUME 9.7 FL (7.4-10.4); MONOCYTES # (AUTO) 0.4 X 10^3 (0.0-1.0); MONOCYTES % (AUTO) 5 % (0-12); NEUTROPHILS # (AUTO) 7.2 X 10^3 (1.8-7.8); NEUTROPHILS % (AUTO) 87 % (42-75); PLATELET COUNT 107 10^3/uL (130-400); RED CELL DISTRIBUTION WIDTH 13.8 % (10.0-14.5); WHITE BLOOD COUNT 8.3 10^3/uL (4.3-11.0)
[2017-05-10 07:19] LABS: CALCIUM 7.9 MG/DL (8.5-10.1); CREATININE SERUM 1.86 MG/DL (0.60-1.30); POTASSIUM 4.2 MMOL/L (3.6-5.0)
[2017-05-10] MEDS ORDERED: cefTRIAXone INJECTION 1,000 MG in NS (IVPB) 50 ML IV SCH (09:00)
--- NOTE | 2017-05-10 09:03 | Progress Note-Hospitalist ---
Subjective HPI/CC On Admission Date Seen by Provider: May 10, 2017 Time Seen by Provider: 08:30 Subjective/Events-last exam Patient is unable communicate due to dementia. Daughter as bedside has multiple questions regarding plans of care. Objective Exam Vital Signs Vital Sign - Last 12Hours 05/08/17 10:15 Temp 97.8 Pulse 140 Resp 24 B/P (MAP) 82/50 (61) Pulse Ox 96 O2 Delivery Room Air O2 Flow Rate 2.00 Capillary Refill : Less Than 3 Seconds General Appearance: No Apparent Distress, WD/WN Respiratory: Other (on oximask, upper airway noises) Cardiovascular: No Murmur, Tachycardia Gastrointestinal: Normal Bowel Sounds, Non Tender, Soft Neurologic/Psychiatric: Other (somnolent) Skin: Mottled Results/Procedures Lab Laboratory Tests 05/10/17 06:13 Assessment/Plan Assessment and Plan Assess & Plan/Chief Complaint Staph Bacteremia Diagnosis/Problems Diagnosis/Problems (1) Staphylococcus aureus bacteremia with sepsis Assessment & Plan: Severe Sepsis from staph bacteremia Continue IVF- given respiratory status will not escalate fluids Continue Vanc, pharmacy to dose Rocephin added as fever recurred and has history of proteus in urine On hospice, palliative care consulted (2) CITLALY (acute kidney injury) Status: Acute Assessment & Plan: Baseline Creatinine 1.04 1.86 today Continue IVF Moya in place to monitor UOP - minimal uop (3) Normocytic anemia Assessment & Plan: Mild, trend (4) Severe dementia Status: Acute Assessment & Plan: On Hospice Palliative Care Consulted (5) Intracranial hemorrhage after injury without loss of consciousness Status: Acute Assessment & Plan: H/o subdural hematoma anticoagulation contraindicated Qualifiers: Qualified Codes: S06.300S - 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, sequela (6) Counseling regarding end of life decision making Assessment & Plan: Discussed with daughter about prognosis for 20 minutes and was very michaela about poor prognosis and that patient showing signs of active dying Will continue IV Vanc/ but has declined MARIEL at this time Recommended to direct goals towards comfort but family would like to reevaluate after on abx for one day but allow for morphine for air hunger/comfort Also called and discussed with PCP Farnklin Baez APRN and confirmed hospice status (7) Prophylactic measure Assessment & Plan: SCDs (h/o of Subdural) if tolerates NS at 125ml/hr Diet as tolerated TEJAS EBNSON MD May 10, 2017 9:03 am
[2017-05-10] MEDS: RT-ALBUTEROL/IPRATROPIUM 3 ML (DUONEB) VIAL INH SCH ×4 (09:21→21:48)
[2017-05-10] MEDS: busPIRone 5 MG (BUSPAR) TAB PO SCH ×2 (09:59→21:14)
[2017-05-10] MEDS: HALOPERIDOL 0.5 MG (HALDOL) TAB PO SCH ×2 (09:59→21:15)
[2017-05-10] MEDS: morphine INJ 4 MG/ML 1 ML (VIAL/SYRINGE) IV PRN ×2 (10:04→23:33)
[2017-05-10] MEDS: SCOPOLAMINE 1.5 MG (TRANSDERM-SCOP) PATCH TOP SCH (10:13)
[2017-05-10] MEDS: VANCOMYCIN INJECTION 1,000 MG in NS (IVPB) 250 ML IV SCH (11:44)
--- NOTE | 2017-05-10 11:55 | ST Dysphagia Evaluation ---
Speech Evaluation-General Medical Diagnosis N/V Onset Date: May 08, 2017 Therapy Diagnosis Therapy Diagnosis: Suspected Oropharyngeal Dysphagia Precautions Precautions: Aspiration Precautions/Isolations: Contact Isolation, Fall Prevention Referral Referring Physician: Dr. June Henry Reason for Referral: Evaluation/Treatment Clinical Bedside Swallowing Evaluation Medical History Pertinent Medical History: Atrial Fib, CAD, Dementia, HTN, [place], TBI Reviewed History: Yes Speech PLF/Current-Dysphagia Prior Level of Function The patient was unable to provide prior level of function information. Subjective The patient was seated upright, 90 degrees, in bed. The patient had an oxygen mask in place. The patient intermittently made eye contact with the clinician, however, maximum verbal prompting was required. The patient would mumble, however, verbalizations were not comprehended. The patient's RN and patient's daughter were present for the evaluation and aided in alertness of patient. CXR: 05/08/17: Similar appearing examination demonstrating cardiomegaly without overt congestive heart failure. Persistent trace right basilar pleural effusion. Cognitive Status Patient Orientation: Non-Verbal/Aphasic Oral Motor Skills Ability to Follow Directions: Unable Oral Expression Ability: Unable Voice Voice Phonatory-Based Quality: Breathy, Weak Face The patient did not follow any oral or tactile cues, prompts, or directions. Due to this, an oral mechanism examination could not be completed. Oral-Facial Assessment Labial Seal Description: Weak Dysphagia Evaluation Consistencies Presented: Thin Liquid, Pureed Oral Phase: Anterior Spillage, Unable to Suck Straw, Reduced Oral Transit - The patient displayed anterior spillage of thin liquid via teaspoon and cup sip, as well as, puree. The patient was unable to suck through a straw. - Delayed laryngeal elevation, as well as, a moderate delayed pharyngeal swallow was noted with all consistencies tested. - No signs/symptoms of aspiration were demonstrated with thin liquid (via teaspoon or cup sip) or puree. Limited trials were completed due to poor alertness and participation. The patient was able to provide crushed medications in puree without signs/symptoms of aspiration. Dietary Recommendations: Pureed Liquid Recommendations: Thin - The patient is appropriate for intake ONLY if he is seated at 90 degrees upright and completely alert. If the patient's alertness reduces, he should remain NPO. - Full supervision should be present for all PO intake. - Crush medication and place in puree. Swallowing Precautions: Decreased Bolus 1/4 Tsp, Liquids from Spoon, No Straw, Oral Supervision Staff, Oral Supervision Caregiver, Small Bites and Sips, Sitting 90 Degrees 30 Post Intake Dysphagia Evaluation Summary The patient displays moderate oropharyngeal dysphagia characterized by reduced labial strength and coordination, decreased laryngeal elevation, and a delayed pharyngeal swallow response. While the patient did not demonstrate signs/ symptoms of aspiration, he remains at a high risk for aspiration with PO intake due to his reduced alertness and cognition. If the patient is not alert, he should not be allowed to consume any consistency. Speech-Plan Treatment Plan Speech Therapy Treatment Plan: Discontinue ST At this time, skilled speech pathology will sign off. The RN and daughter were encouraged to re-consult if difficulties arise. Frequency: 1 time per week Estimated Hrs Per Day: Other Rehab Potential: Poor Safety Risks/Education Teaching Recipient: Patient, Family Teaching Methods: Discussion Response to Teaching: Verbalize Understanding Education Topics Provided: Results, Recommendations, Plan of Care, Signs/Symptoms of Aspiration Time Speech Therapy Time In: 09:45 Speech Therapy Time Out: 10:00 Total Billed Time: 15 Billed Treatment Time 1, GINNA ZAMORANO May 10, 2017 11:55
[2017-05-10] MEDS ORDERED: SCOPOLAMINE 1.5 MG (TRANSDERM-SCOP) PATCH TOP SCH (12:00)
[2017-05-10] MEDS: LORazepam INJ 2 MG/ML (ATIVAN) VIAL IVP PRN ×2 (13:38→17:15)
[2017-05-10] MEDS: cefTRIAXone INJECTION 1,000 MG in NS (IVPB) 50 ML IV SCH (17:14)
[2017-05-10] MEDS: traZODone 50 MG (DESYREL) TAB PO SCH (21:15)
[2017-05-10] MEDS: LATANOPROST 0.005% (XALATAN) OPHTH SOLN 2.5 ML OU SCH (21:33)
[2017-05-11] VITALS: BP 151/76
[2017-05-11] MEDS: ACETAMINOPHEN 650 MG SUPP (TYLENOL) PR SCH ×3 (01:38→08:38)
[2017-05-11] MEDS: RT-ALBUTEROL/IPRATROPIUM 3 ML (DUONEB) VIAL INH SCH ×6 (02:55→21:47)
[2017-05-11 03:32] VITALS: BP 90/60
[2017-05-11] MEDS: NS IV 1000 ML 1,000 ML IV SCH ×3 (03:32→20:25)
[2017-05-11] MEDS: morphine INJ 4 MG/ML 1 ML (VIAL/SYRINGE) IV PRN ×2 (03:57→11:43)
[2017-05-11] MEDS: RT-ALBUTEROL/IPRATROPIUM 3 ML (DUONEB) VIAL INH PRN ×2 (05:15→08:48)
[2017-05-11] MEDS: LORazepam INJ 2 MG/ML (ATIVAN) VIAL IVP PRN ×2 (05:23→16:41)
[2017-05-11 06:25] LABS: BASOPHILS % (AUTO) 0 % (0-10); EOSINOPHILS # (AUTO) 0.2 10^3/uL (0.0-0.3); EOSINOPHILS % (AUTO) 2 % (0-10); HEMATOCRIT 31 % (40-54); HEMOGLOBIN 9.9 G/DL (13.3-17.7); LYMPHOCYTES # (AUTO) 0.8 X 10^3 (1.0-4.0); LYMPHOCYTES % (AUTO) 12 % (12-44); MEAN CORPUSCULAR HEMOGLOBIN 31 PG (25-34); MEAN CORPUSCULAR HGB CONC 32 G/DL (32-36); MEAN CORPUSCULAR VOLUME 98 FL (80-99); MEAN PLATELET VOLUME 9.7 FL (7.4-10.4); MONOCYTES # (AUTO) 0.4 X 10^3 (0.0-1.0); MONOCYTES % (AUTO) 6 % (0-12); NEUTROPHILS # (AUTO) 5.3 X 10^3 (1.8-7.8); NEUTROPHILS % (AUTO) 79 % (42-75); PLATELET COUNT 101 10^3/uL (130-400); RED BLOOD COUNT 3.16 10^6/uL (4.35-5.85); WHITE BLOOD COUNT 6.8 10^3/uL (4.3-11.0)
[2017-05-11 06:50] LABS: BUN/CREATININE RATIO 14; CALCIUM 7.5 MG/DL (8.5-10.1); CARBON DIOXIDE 22 MMOL/L (21-32); CHLORIDE 117 MMOL/L (98-107); CREATININE SERUM 1.04 MG/DL (0.60-1.30); GFR ESTIMATED > 60; GLUCOSE 86 MG/DL (70-105); SODIUM 145 MMOL/L (135-145)
[2017-05-11 08:00] VITALS: BP 99/63
--- NOTE | 2017-05-11 09:54 | Progress Note-Hospitalist ---
Subjective HPI/CC On Admission Date Seen by Provider: May 11, 2017 Time Seen by Provider: 08:30 Subjective/Events-last exam Pt remains very somnolent. Unable to provide any ROS. Daughter reports that he is continuing to gurgle and is taking nothing in. Objective Exam Vital Signs Vital Sign - Last 12Hours 05/08/17 10:15 Temp 97.8 Pulse 140 Resp 24 B/P (MAP) 82/50 (61) Pulse Ox 96 O2 Delivery Room Air O2 Flow Rate 2.00 Capillary Refill : Less Than 3 Seconds General Appearance: Chronically ill Respiratory: Lungs Clear, No Respiratory Distress Cardiovascular: No JVD, No Murmur, Tachycardia Gastrointestinal: Normal Bowel Sounds, Non Tender, Soft Neurologic/Psychiatric: Other (somnolent, responds to tactile stimuli but no verbal responses) Results/Procedures Lab Laboratory Tests 05/11/17 05:30 Assessment/Plan Assessment and Plan Assess & Plan/Chief Complaint Staph Bacteremia Diagnosis/Problems Diagnosis/Problems (1) Staphylococcus aureus bacteremia with sepsis Assessment & Plan: Severe Sepsis from staph bacteremia Continue IVF- given respiratory status will not escalate fluids MSSA on culture- will only continue Rocephin On hospice, palliative care consulted Will repeat blood cultures (2) CITLALY (acute kidney injury) Status: Acute Assessment & Plan: Baseline Creatinine 1.04 1.02 today Continue IVF Moya in place to monitor UOP and for comfort - minimal uop (3) Normocytic anemia Assessment & Plan: Mild, trend (4) Severe dementia Status: Acute Assessment & Plan: On Hospice Palliative Care Consulted (5) Intracranial hemorrhage after injury without loss of consciousness Status: Acute Assessment & Plan: H/o subdural hematoma anticoagulation contraindicated Qualifiers: Qualified Codes: S06.300S - 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, sequela (6) Counseling regarding end of life decision making Assessment & Plan: Discussed with daughter about prognosis and was very michaela about poor prognosis and that patient showing signs of active dying Recommended to direct goals towards comfort but family would like to reevaluate after on abx for longer but allow for morphine for air hunger/comfort Discussed with their hospice's nurse and will not be able to sustain this level of care on hospice and may need to revoke hospice (7) Prophylactic measure Assessment & Plan: SCDs (h/o of Subdural) if tolerates NS at 125ml/hr Diet as tolerated TEJAS BENSON MD May 11, 2017 9:54 am
[2017-05-11] MEDS: busPIRone 5 MG (BUSPAR) TAB PO SCH ×2 (10:00→20:16)
[2017-05-11] MEDS: HALOPERIDOL 0.5 MG (HALDOL) TAB PO SCH ×2 (10:01→20:17)
[2017-05-11] MEDS ORDERED: TROUGH ORDER-PHARMACY XX NR (11:00)
[2017-05-11 12:00] VITALS: BP 98/57
[2017-05-11 15:45] VITALS: BP 113/75
[2017-05-11] MEDS: cefTRIAXone INJECTION 1,000 MG in NS (IVPB) 50 ML IV SCH (17:28)
[2017-05-11 19:45] VITALS: BP 110/79
[2017-05-11] MEDS: traZODone 50 MG (DESYREL) TAB PO SCH (20:17)
[2017-05-11] MEDS: LATANOPROST 0.005% (XALATAN) OPHTH SOLN 2.5 ML OU SCH (20:17)
[2017-05-11] MEDS: RT-LEVALBUTEROL (XOPENEX) 1.25 MG/3 ML NEB NON-FORMULARY INH SCH (21:57)
[2017-05-11] MEDS: ACETAMINOPHEN 650 MG SUPP (TYLENOL) PR PRN (23:53)
[2017-05-12 00:08] VITALS: BP 114/76
[2017-05-12] MEDS: RT-ALBUTEROL/IPRATROPIUM 3 ML (DUONEB) VIAL INH SCH ×3 (02:00→13:39)
[2017-05-12] MEDS: RT-LEVALBUTEROL (XOPENEX) 1.25 MG/3 ML NEB NON-FORMULARY INH SCH ×4 (02:46→19:47)
[2017-05-12 04:00] VITALS: BP 116/78
[2017-05-12] MEDS: NS IV 1000 ML 1,000 ML IV SCH ×3 (04:27→23:58)
[2017-05-12 06:14] LABS: BASOPHILS % (AUTO) 0 % (0-10); EOSINOPHILS # (AUTO) 0.1 10^3/uL (0.0-0.3); EOSINOPHILS % (AUTO) 1 % (0-10); HEMATOCRIT 32 % (40-54); HEMOGLOBIN 10.1 G/DL (13.3-17.7); LYMPHOCYTES # (AUTO) 0.6 X 10^3 (1.0-4.0); LYMPHOCYTES % (AUTO) 9 % (12-44); MEAN CORPUSCULAR HEMOGLOBIN 31 PG (25-34); MEAN CORPUSCULAR HGB CONC 32 G/DL (32-36); MEAN CORPUSCULAR VOLUME 97 FL (80-99); MEAN PLATELET VOLUME 10.1 FL (7.4-10.4); MONOCYTES # (AUTO) 0.5 X 10^3 (0.0-1.0); MONOCYTES % (AUTO) 8 % (0-12); NEUTROPHILS # (AUTO) 5.7 X 10^3 (1.8-7.8); NEUTROPHILS % (AUTO) 82 % (42-75); PLATELET COUNT 117 10^3/uL (130-400); RED BLOOD COUNT 3.28 10^6/uL (4.35-5.85); RED CELL DISTRIBUTION WIDTH 14.2 % (10.0-14.5); WHITE BLOOD COUNT 6.9 10^3/uL (4.3-11.0)
[2017-05-12 06:25] LABS: BUN/CREATININE RATIO 14; CALCIUM 7.9 MG/DL (8.5-10.1); CARBON DIOXIDE 16 MMOL/L (21-32); CHLORIDE 118 MMOL/L (98-107); CREATININE SERUM 1.01 MG/DL (0.60-1.30); GFR ESTIMATED > 60; GLUCOSE 74 MG/DL (70-105); POTASSIUM 3.8 MMOL/L (3.6-5.0); SODIUM 145 MMOL/L (135-145)
[2017-05-12 08:01] VITALS: BP 110/72
[2017-05-12] MEDS: busPIRone 5 MG (BUSPAR) TAB PO SCH ×2 (08:08→20:35)
[2017-05-12] MEDS: LORazepam INJ 2 MG/ML (ATIVAN) VIAL IVP PRN ×3 (08:08→20:53)
[2017-05-12] MEDS: HALOPERIDOL 0.5 MG (HALDOL) TAB PO SCH ×2 (08:08→20:35)
--- NOTE | 2017-05-12 09:49 | Progress Note-Hospitalist ---
Subjective HPI/CC On Admission Date Seen by Provider: May 12, 2017 Time Seen by Provider: 08:45 Subjective/Events-last exam No family at bedside. Patient remains unable to respond. I attempted to call daughter with no answer. Objective Exam Vital Signs Vital Sign - Last 12Hours 05/08/17 10:15 Temp 97.8 Pulse 140 Resp 24 B/P (MAP) 82/50 (61) Pulse Ox 96 O2 Delivery Room Air O2 Flow Rate 2.00 Capillary Refill : Less Than 3 Seconds General Appearance: Chronically ill Respiratory: Lungs Clear, No Accessory Muscle Use, No Respiratory Distress Cardiovascular: No Murmur, Tachycardia Gastrointestinal: Normal Bowel Sounds, Soft, No Guarding Neurologic/Psychiatric: Other (somnolent, does not respond to verbal or physical stimuli) Results/Procedures Lab Laboratory Tests 05/12/17 05:22 Assessment/Plan Assessment and Plan Assess & Plan/Chief Complaint Staph Bacteremia Diagnosis/Problems Diagnosis/Problems (1) Staphylococcus aureus bacteremia with sepsis Assessment & Plan: Continue IVF- given respiratory status will not escalate fluids MSSA on culture- will only continue Rocephin On hospice, palliative care consulted Repeat blood cultures pending (2) CITLALY (acute kidney injury) Status: Resolved Assessment & Plan: Baseline Creatinine 1.04 1.01 today Continue IVF Moya in place to monitor UOP and for comfort (3) Normocytic anemia Assessment & Plan: Mild, trend (4) Severe dementia Status: Acute Assessment & Plan: On Hospice Palliative Care Consulted (5) Intracranial hemorrhage after injury without loss of consciousness Status: Acute Assessment & Plan: H/o subdural hematoma anticoagulation contraindicated Qualifiers: Qualified Codes: S06.300S - 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, sequela (6) Counseling regarding end of life decision making Assessment & Plan: Discussed with daughter about prognosis and was very michaeal about poor prognosis and that patient showing signs of active dying multiple days in a row but have been unable to talk with her today Recommended to direct goals towards comfort but family would like to reevaluate after on abx for longer but allow for morphine for air hunger/comfort Discussed with their hospice's nurse on 05/11 and will not be able to sustain this level of care on hospice and may need to revoke hospice (7) Thrombocytopenia Status: Chronic Assessment & Plan: Review of records shows baseline around low 100s Currently stable trend (8) Prophylactic measure Assessment & Plan: SCDs (h/o of Subdural) if tolerates NS at 125ml/hr Diet as tolerated TEJAS BENSON MD May 12, 2017 09:49
[2017-05-12] MEDS: morphine INJ 4 MG/ML 1 ML (VIAL/SYRINGE) IV PRN (12:10)
[2017-05-12 15:30] VITALS: BP 160/87
[2017-05-12] MEDS: cefTRIAXone INJECTION 1,000 MG in NS (IVPB) 50 ML IV SCH (17:09)
[2017-05-12] MEDS: traZODone 50 MG (DESYREL) TAB PO SCH (20:35)
[2017-05-12] MEDS: LATANOPROST 0.005% (XALATAN) OPHTH SOLN 2.5 ML OU SCH (20:52)
[2017-05-13] VITALS: BP 160/85
[2017-05-13] MEDS: RT-ALBUTEROL/IPRATROPIUM 3 ML (DUONEB) VIAL INH SCH ×6 (00:04→22:00)
[2017-05-13] MEDS: morphine INJ 4 MG/ML 1 ML (VIAL/SYRINGE) IV PRN ×3 (00:15→15:18)
[2017-05-13] MEDS: RT-LEVALBUTEROL (XOPENEX) 1.25 MG/3 ML NEB NON-FORMULARY INH SCH ×4 (03:35→19:11)
[2017-05-13] MEDS: LORazepam INJ 2 MG/ML (ATIVAN) VIAL IVP PRN ×2 (03:44→09:30)
[2017-05-13 04:00] VITALS: BP 125/81
[2017-05-13 06:22] LABS: BASOPHILS % (AUTO) 0 % (0-10); EOSINOPHILS # (AUTO) 0.1 10^3/uL (0.0-0.3); EOSINOPHILS % (AUTO) 2 % (0-10); HEMATOCRIT 31 % (40-54); HEMOGLOBIN 10.1 G/DL (13.3-17.7); LYMPHOCYTES % (AUTO) 13 % (12-44); MEAN CORPUSCULAR HEMOGLOBIN 31 PG (25-34); MEAN CORPUSCULAR HGB CONC 33 G/DL (32-36); MEAN CORPUSCULAR VOLUME 96 FL (80-99); MEAN PLATELET VOLUME 9.6 FL (7.4-10.4); MONOCYTES # (AUTO) 0.6 X 10^3 (0.0-1.0); MONOCYTES % (AUTO) 8 % (0-12); NEUTROPHILS # (AUTO) 5.7 X 10^3 (1.8-7.8); NEUTROPHILS % (AUTO) 77 % (42-75); PLATELET COUNT 120 10^3/uL (130-400); RED BLOOD COUNT 3.23 10^6/uL (4.35-5.85); RED CELL DISTRIBUTION WIDTH 14.5 % (10.0-14.5); WHITE BLOOD COUNT 7.4 10^3/uL (4.3-11.0)
[2017-05-13 06:42] LABS: CALCIUM 7.6 MG/DL (8.5-10.1); CREATININE SERUM 1.24 MG/DL (0.60-1.30); POTASSIUM 3.9 MMOL/L (3.6-5.0)
[2017-05-13] MEDS: SCOPOLAMINE 1.5 MG (TRANSDERM-SCOP) PATCH TOP SCH (07:56)
[2017-05-13] MEDS: PATCH REMOVAL TP SCH (07:56)
[2017-05-13] MEDS: SALIVA STIMULANT MOUTH SPRAY (BIOTENE) 1.5 OZ MM PRN (07:58)
[2017-05-13] MEDS: busPIRone 5 MG (BUSPAR) TAB PO SCH ×2 (08:23→20:07)
[2017-05-13] MEDS: HALOPERIDOL 0.5 MG (HALDOL) TAB PO SCH ×2 (08:23→20:07)
[2017-05-13 08:44] VITALS: BP 134/72
[2017-05-13] MEDS: D5 1/2 NS 1000 ML IV SOLUTION 1,000 ML IV SCH ×4 (09:26→23:24)
--- NOTE | 2017-05-13 09:43 | Progress Note-Hospitalist ---
Subjective HPI/CC On Admission Date Seen by Provider: May 13, 2017 Time Seen by Provider: 09:00 Subjective/Events-last exam Pt remains unresponsive. Unable to provide ROS. No family at bedside. Attempted to call with no answer. Discussed with RN received morphine x1 this AM. No other events noted overnight. Objective Exam Vital Signs Vital Sign - Last 12Hours 05/08/17 10:15 Temp 97.8 Pulse 140 Resp 24 B/P (MAP) 82/50 (61) Pulse Ox 96 O2 Delivery Room Air O2 Flow Rate 2.00 Capillary Refill : Less Than 3 Seconds General Appearance: No Apparent Distress, Chronically ill Respiratory: Lungs Clear, No Accessory Muscle Use Cardiovascular: Regular Rate, Rhythm, No Murmur Neurologic/Psychiatric: Other (somnolent, does not respond to verbal stimuli, grimaces at times) Results/Procedures Lab Laboratory Tests 05/13/17 05:34 Assessment/Plan Assessment and Plan Assess & Plan/Chief Complaint Staph Bacteremia Diagnosis/Problems Diagnosis/Problems (1) Staphylococcus aureus bacteremia with sepsis Assessment & Plan: Continue IVF but will discuss with family during family meeting today about concerns continuing these given his request MSSA on culture- day 6 abx On hospice, palliative care consulted Repeat blood cultures NGTD (2) CITLALY (acute kidney injury) Status: Resolved Assessment & Plan: Baseline Creatinine 1.04 1.22 today Continue IVF currently, will discuss DCing with family when they arrive Moya in place for comfort (3) Normocytic anemia Assessment & Plan: Mild, trend (4) Severe dementia Status: Acute Assessment & Plan: On Hospice Palliative Care Consulted (5) Intracranial hemorrhage after injury without loss of consciousness Status: Acute Assessment & Plan: H/o subdural hematoma anticoagulation contraindicated Qualifiers: Qualified Codes: S06.300S - 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, sequela (6) Counseling regarding end of life decision making Assessment & Plan: Discussed with daughter about prognosis and was very michaela about poor prognosis and that patient showing signs of active dying multiple days in a row but have been unable to talk with her today again Discussed with , Bernice yesterday with switchboard operator about patient's health care directive. She stated she would arrange for a family meeting today but have been unable to contact family as not at bedside and not returning calls Recommended to direct goals towards comfort but family would like to reevaluate after on abx for longer (now at 6 days) but allow for morphine for air hunger/ comfort Discussed with their hospice's nurse on 05/11 and will not be able to sustain this level of care on hospice and may need to revoke hospice (7) Thrombocytopenia Status: Chronic Assessment & Plan: Review of records shows baseline around low 100s Currently stable trend (8) Prophylactic measure Assessment & Plan: SCDs (h/o of Subdural) if tolerates D5 1/2NS at 100ml/hr Diet as tolerated TEJAS BENSON MD May 13, 2017 9:43 am
--- NOTE | 2017-05-13 13:25 | Clinic Account Progress/Dx ---
Clinic Account Progress/Dx DIAGNOSIS: Time Seen by Provider: 11:45 staph bacteremia Progress Note: Called to room because family has arrived. Discussed with Daughter and with palliative Care Nurse Rene about patient's current status, lack of meaningful improvement, and his health care directive. Informed daughter of my concerns about actively doing things in contradiction of his directive. She reported that she did not feel he understood what he was signing in regards to he would like "artificially supplied nutrition and hydration (including tube feeding of food and water)." She did not think he would have felt that to mean IVF. She expressed her concern that if fluids were stopped that would mean his imminent . I again referred to his directive that "all other 'life- prolonging' medical or surgical procedures that are merely intended to keep me alive with reasonable hope of improving my condition or curing my illness or injury" but withheld and that continued IV fluids at this time would be contradictory to his directive. She requested time to discuss with her mother. I was called back to his room when his and daughter were both at bedside and they requested to continue IV fluids for 2 more days for a time trial and if no improvement to DC back to NH on Tuesday. I offered an Ethics consult to evaluate his advanced directive and declare if that would be acting against his autonomy. At this time an ethics consult has been request and family is interested in hearing their opinion. Over an hour of time has been spent with at the bedside discussion plan of care regarding end of life services. TEJAS BENSON MD May 13, 2017 1:25 pm
[2017-05-13] MEDS: NS IV 1000 ML 1,000 ML IV SCH ×2 (15:18→20:08)
--- NOTE | 2017-05-13 15:39 | Clinic Account Progress/Dx ---
Clinic Account Progress/Dx DIAGNOSIS: Time Seen by Provider: 14:45 Staph bacteremia End of life care planning Progress Note: After conclusion of the ethics committee I returned to the patient room with Palliative Care Nurse, Chaplain López Adah, and Dr Garibay who were all in attendance of the ethic committee meeting. I relayed the recommendation of the ethics committee to uphold Gann's health care directive. I informed Bernice, pt 's , of the recommendation to DC back to [facility] with hospice and comfort measures only and that I would be placing the discharge order at this time based off my clinical judgment and the recommendations of the ethics committee. Bernice states her desire to give the patient a time trial until Tuesday to assess for any improvement. When ask what signs of improvement she was looking for she was unable to identify any. When I offered a goal of "alert enough to eat or drink" she would not agree. Both Dr Garibay and I informed her of our obligation to not harm the patient any further and that certain measures could not be escalated or continued. Upon review of his status with her she was informed of his increased weight (12lbs since 05/08) and his clinical signs of fluid overload. At this time fluids have been decreased and may need to be stopped over the weekend should his clinical condition indicate that. She agreed to that plan of care. She informed me of his disagreement with the recommendation for discharge and her intent to appeal the discharge. Appeal processes are currently underway. Time spent at bedside was [id number]. Total time spent at ethics committee meeting and coordinating plan of care was [phone]. TEJAS BENSON MD May 13, 2017 15:38
[2017-05-13 16:00] VITALS: BP 100/60
[2017-05-13] MEDS: cefTRIAXone INJECTION 1,000 MG in NS (IVPB) 50 ML IV SCH (18:39)
[2017-05-13] MEDS: traZODone 50 MG (DESYREL) TAB PO SCH (20:07)
[2017-05-13] MEDS: LATANOPROST 0.005% (XALATAN) OPHTH SOLN 2.5 ML OU SCH (20:23)
[2017-05-14] VITALS: BP 121/74
[2017-05-14] MEDS: RT-ALBUTEROL/IPRATROPIUM 3 ML (DUONEB) VIAL INH SCH ×5 (02:00→22:10)
[2017-05-14] MEDS: morphine INJ 4 MG/ML 1 ML (VIAL/SYRINGE) IV PRN ×3 (02:09→21:11)
[2017-05-14] MEDS: RT-LEVALBUTEROL (XOPENEX) 1.25 MG/3 ML NEB NON-FORMULARY INH SCH ×4 (04:03→18:25)
[2017-05-14 08:00] VITALS: BP 136/67
[2017-05-14] MEDS: NS IV 1000 ML 1,000 ML IV SCH ×2 (08:07→18:47)
[2017-05-14] MEDS: busPIRone 5 MG (BUSPAR) TAB PO SCH ×2 (09:34→19:51)
[2017-05-14] MEDS: HALOPERIDOL 0.5 MG (HALDOL) TAB PO SCH ×2 (09:34→19:51)
--- NOTE | 2017-05-14 11:44 | Progress Note-Hospitalist ---
Subjective HPI/CC On Admission Date Seen by Provider: May 14, 2017 Time Seen by Provider: 11:35 Subjective/Events-last exam Pt somnolent. Does not respond. Sleeping. Objective Exam Vital Signs Vital Sign - Last 12Hours 05/08/17 10:15 Temp 97.8 Pulse 140 Resp 24 B/P (MAP) 82/50 (61) Pulse Ox 96 O2 Delivery Room Air O2 Flow Rate 2.00 Capillary Refill : Less Than 3 Seconds General Appearance: No Apparent Distress, Chronically ill Respiratory: No Accessory Muscle Use, No Respiratory Distress, Decreased Breath Sounds Cardiovascular: Regular Rate, Rhythm, No Murmur Gastrointestinal: Soft, No Distended, No Guarding Neurologic/Psychiatric: Other (somnolent, does not respond to verbal stimuli) Assessment/Plan Assessment and Plan Assess & Plan/Chief Complaint Staph Bacteremia Diagnosis/Problems Diagnosis/Problems (1) Staphylococcus aureus bacteremia with sepsis Assessment & Plan: MSSA on culture- day 7 abx On hospice, palliative care consulted Repeat blood cultures NGTD (2) CITLALY (acute kidney injury) Status: Resolved Assessment & Plan: Baseline Creatinine 1.04 1.22 05/[address] for comfort (3) Normocytic anemia Assessment & Plan: Mild (4) Severe dementia Status: Acute Assessment & Plan: On Hospice Palliative Care Consulted (5) Intracranial hemorrhage after injury without loss of consciousness Status: Acute Assessment & Plan: H/o subdural hematoma anticoagulation contraindicated Qualifiers: Qualified Codes: S06.300S - 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, sequela (6) Counseling regarding end of life decision making Assessment & Plan: Discussed with daughter about prognosis and was very michaela about poor prognosis and that patient showing signs of active dying multiple days in a row but have been unable to talk with her today again as she is at work Discussed with , Bernice, yesterday as per multiple notes Discharged order placed and family has appealed discharge Will decrease fluids today to TKO as up 4lbs from yesterday and increasing oxygen requirement (7) Thrombocytopenia Status: Chronic Assessment & Plan: Review of records shows baseline around low 100s Currently stable (8) Prophylactic measure Assessment & Plan: SCDs (h/o of Subdural) if tolerates Diet as tolerated TEJAS BENSON MD May 14, 2017 11:44 am
[2017-05-14 16:01] VITALS: BP 121/79
[2017-05-14] MEDS: cefTRIAXone INJECTION 1,000 MG in NS (IVPB) 50 ML IV SCH (18:47)
[2017-05-14] MEDS: traZODone 50 MG (DESYREL) TAB PO SCH (19:51)
[2017-05-14] MEDS: LATANOPROST 0.005% (XALATAN) OPHTH SOLN 2.5 ML OU SCH (21:10)
[2017-05-15] VITALS: BP 144/97
[2017-05-15] MEDS: RT-ALBUTEROL/IPRATROPIUM 3 ML (DUONEB) VIAL INH SCH ×3 (02:00→14:34)
[2017-05-15] MEDS: RT-LEVALBUTEROL (XOPENEX) 1.25 MG/3 ML NEB NON-FORMULARY INH SCH ×4 (02:32→21:42)
[2017-05-15] MEDS: NS IV 1000 ML 1,000 ML IV SCH ×2 (07:33→17:15)
[2017-05-15] MEDS: busPIRone 5 MG (BUSPAR) TAB PO SCH ×2 (07:34→21:08)
[2017-05-15] MEDS: HALOPERIDOL 0.5 MG (HALDOL) TAB PO SCH ×2 (07:34→21:08)
[2017-05-15 08:00] VITALS: BP 111/80
--- NOTE | 2017-05-15 11:15 | Progress Note-Hospitalist ---
Subjective HPI/CC On Admission Date Seen by Provider: May 15, 2017 Time Seen by Provider: 11:09 Subjective/Events-last exam Pt asleep. Unable to provide ROS. Only groans. Objective Exam Vital Signs Vital Sign - Last 12Hours 05/09/17 05/09/17 01:26 01:30 Temp 102.5 Pulse 131 Resp 20 B/P (MAP) 110/58 (75) Pulse Ox 97 O2 Delivery Nasal Cannula O2 Flow Rate 4.00 Capillary Refill : Less Than 3 Seconds General Appearance: Chronically ill Respiratory: No Accessory Muscle Use, Decreased Breath Sounds Cardiovascular: Regular Rate, Rhythm, No JVD, No Murmur Gastrointestinal: Normal Bowel Sounds, Soft Extremity: Pedal Edema, Swelling (of upper and lower extremities) Neurologic/Psychiatric: Disoriented x3, Other Assessment/Plan Assessment and Plan Assess & Plan/Chief Complaint Staph Bacteremia Diagnosis/Problems Diagnosis/Problems (1) Staphylococcus aureus bacteremia with sepsis Assessment & Plan: MSSA on culture- day 8 abx On hospice, palliative care consulted Repeat blood cultures NGTD (2) CITLALY (acute kidney injury) Status: Resolved Assessment & Plan: Baseline Creatinine 1.04 1.22 05/[address] for comfort (3) Normocytic anemia Assessment & Plan: Mild (4) Severe dementia Status: Acute Assessment & Plan: On Hospice Palliative Care Consulted (5) Intracranial hemorrhage after injury without loss of consciousness Status: Acute Assessment & Plan: H/o subdural hematoma anticoagulation contraindicated Qualifiers: Qualified Codes: S06.300S - 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, sequela (6) Counseling regarding end of life decision making Assessment & Plan: Discussed with daughter multiple previous days about prognosis and was very michaela about his very poor prognosis and that patient showing signs of active dying multiple days in a row but have been unable to talk with her today again as she is at work Discussed with , Bernice, yesterday as per multiple notes Bernice not currently here Discharged order placed and family has appealed discharge Will DC fluids as up 2.5kgs from yesterday and further edema (7) Thrombocytopenia Status: Chronic Assessment & Plan: Review of records shows baseline around low 100s Currently stable (8) Prophylactic measure Assessment & Plan: SCDs (h/o of Subdural) if tolerates Diet as tolerated Saline Lock Copy Copies To 1: FÁTIMA MONTANA MD, KATELYN M MD May 15, 2017 11:15
[2017-05-15] MEDS: morphine INJ 4 MG/ML 1 ML (VIAL/SYRINGE) IV PRN ×2 (12:21→21:08)
[2017-05-15] MEDS: D5 1/2 NS 1000 ML IV SOLUTION 1,000 ML IV SCH (14:19)
[2017-05-15 16:00] VITALS: BP 93/50
[2017-05-15] MEDS: cefTRIAXone INJECTION 1,000 MG in NS (IVPB) 50 ML IV SCH (17:41)
[2017-05-15] MEDS: LATANOPROST 0.005% (XALATAN) OPHTH SOLN 2.5 ML OU SCH (21:08)
[2017-05-15] MEDS: traZODone 50 MG (DESYREL) TAB PO SCH (21:08)
[2017-05-16] VITALS: BP 113/62
[2017-05-16] MEDS: NS IV 1000 ML 1,000 ML IV SCH ×3 (01:30→20:53)
[2017-05-16] MEDS: RT-LEVALBUTEROL (XOPENEX) 1.25 MG/3 ML NEB NON-FORMULARY INH SCH ×4 (05:30→19:39)
[2017-05-16] MEDS: busPIRone 5 MG (BUSPAR) TAB PO SCH ×2 (08:19→20:55)
[2017-05-16] MEDS: HALOPERIDOL 0.5 MG (HALDOL) TAB PO SCH ×2 (08:19→20:54)
[2017-05-16 08:36] VITALS: BP 105/73
[2017-05-16] MEDS: PATCH REMOVAL TP SCH (09:00)
[2017-05-16] MEDS: SCOPOLAMINE 1.5 MG (TRANSDERM-SCOP) PATCH TOP SCH (09:00)
[2017-05-16] MEDS: ACETAMINOPHEN 650 MG SUPP (TYLENOL) PR PRN (09:53)
--- NOTE | 2017-05-16 12:08 | Progress Note-Hospitalist ---
Standard Progress Note Progress Notes/Assess & Plan Date Seen 05/16/17 Time Seen by Provider: 12:05 Diagnosis Severe Sepsis Assess & Plan/Chief Complaint Day number 8. The patient is a severely demented 82-year-old male who was a long-term resident of a skilled nursing. He had been on hospitalist status at the skilled nursing. At the time of admission his alertness had been determined to be declining. He was found to have MRSA in his urine culture and subsequently grew from his blood culture. Admission the plan had been to have placement of a PICC line and then to return to the skilled nursing to receive vancomycin on a 48 hour dosing schedule. The patient has been a DO NOT RESUSCITATE. He remains so. Physical exam: He does not answer to voice or respond to touch. He appears to be in a deep sleep. Lungs are shallow but clear. CV is regular. Impression: MRSA UTI and septicemia. 2.severe dementia. VANGIE IBSHOP MD May 16, 2017 12:08
[2017-05-16] MEDS ORDERED: ROCEPHIN IM (13:48)
[2017-05-16 16:31] VITALS: BP 106/67
[2017-05-16] MEDS: cefTRIAXone INJECTION 2,000 MG in NS (IVPB) 50 ML IV SCH (17:14)
[2017-05-16 19:46] VITALS: BP 128/87
[2017-05-16] MEDS: LATANOPROST 0.005% (XALATAN) OPHTH SOLN 2.5 ML OU SCH (20:52)
[2017-05-16] MEDS: traZODone 50 MG (DESYREL) TAB PO SCH (20:54)
[2017-05-17 00:44] VITALS: BP 125/83
[2017-05-17] MEDS: D5 1/2 NS 1000 ML IV SOLUTION 1,000 ML IV SCH (01:34)
[2017-05-17] MEDS: RT-LEVALBUTEROL (XOPENEX) 1.25 MG/3 ML NEB NON-FORMULARY INH SCH ×5 (02:25→20:56)
[2017-05-17] MEDS: NS IV 1000 ML 1,000 ML IV SCH (07:36)
[2017-05-17] MEDS: HALOPERIDOL 0.5 MG (HALDOL) TAB PO SCH ×2 (08:14→21:25)
[2017-05-17] MEDS: busPIRone 5 MG (BUSPAR) TAB PO SCH ×2 (08:14→21:25)
[2017-05-17 08:27] VITALS: BP 138/89
--- NOTE | 2017-05-17 10:20 | Progress Note-Hospitalist ---
Standard Progress Note Progress Notes/Assess & Plan Date Seen 05/17/17 Time Seen by Provider: 10:16 Diagnosis Severe Sepsis Assess & Plan/Chief Complaint The patient remains deeply somnolent. Vital signs are stable. We remain hopeful that the Medicare discharge appeal will be completed today. Physical exam: He is deeply somnolent. He does not respond to light touch or voice. Lungs are clear to auscultation but respirations are shallow. CV is regular. Impression: MSSA septicemia/urinary tract infection. 2.severe dementia. Plan: Complete antibiotic treatment. Await Medicare review VANGIE BISHOP MD May 17, 2017 10:20
[2017-05-17 15:49] VITALS: BP 112/76
[2017-05-17] MEDS: cefTRIAXone INJECTION 2,000 MG in NS (IVPB) 50 ML IV SCH (16:25)
[2017-05-17] MEDS: LATANOPROST 0.005% (XALATAN) OPHTH SOLN 2.5 ML OU SCH (21:24)
[2017-05-17] MEDS: traZODone 50 MG (DESYREL) TAB PO SCH (21:25)
[2017-05-18 00:10] VITALS: BP 103/67
[2017-05-18] MEDS: RT-LEVALBUTEROL (XOPENEX) 1.25 MG/3 ML NEB NON-FORMULARY INH SCH ×4 (02:49→21:53)
[2017-05-18 08:00] VITALS: BP 147/88
[2017-05-18] MEDS: HALOPERIDOL 0.5 MG (HALDOL) TAB PO SCH ×2 (08:48→21:00)
[2017-05-18] MEDS: busPIRone 5 MG (BUSPAR) TAB PO SCH ×2 (08:48→21:00)
[2017-05-18] MEDS: D5 1/2 NS 1000 ML IV SOLUTION 1,000 ML IV SCH (14:51)
[2017-05-18 15:45] VITALS: BP 104/83
[2017-05-18] MEDS: cefTRIAXone INJECTION 2,000 MG in NS (IVPB) 50 ML IV SCH (16:31)
--- NOTE | 2017-05-18 17:59 | Progress Note-Hospitalist ---
Progress Note Progress Notes/Assess & Plan Date Seen 05/18/17 Time Seen by Provider: 10:30 Diagonsis/Assessment & Plan Pt declined. Refusing to eat. Talked to RN Pt very debilitated Opens eyes, not alert No changes to exam from prior A/P: MSSA Bacteremia sepsis Severe dementia on Hospice PD [place] Subdural hematoma 1 yr ago I spoke to Georgette Russell MD on the phone for 20 minutes and she updated me on her thoughts. After she talked for 15 minutes uninterrupted I told her that he was very declined and refused to eat and when I saw him today I saw imminent in the near future. She processed that information and said" so you are saying in your opinion if he was to recover he would have recovered long before the 11th day today?" of which I said exactly. Updated Donna with risk management and will likely continue abx and DC to [place] Tuesday on Hospice. JUN STAFFORD DO May 18, 2017 17:59
[2017-05-18] MEDS: traZODone 50 MG (DESYREL) TAB PO SCH (21:00)
[2017-05-18] MEDS: LATANOPROST 0.005% (XALATAN) OPHTH SOLN 2.5 ML OU SCH (22:48)
[2017-05-19] VITALS: BP 156/86
[2017-05-19] MEDS: RT-LEVALBUTEROL (XOPENEX) 1.25 MG/3 ML NEB NON-FORMULARY INH SCH ×2 (02:37→06:49)
[2017-05-19 08:18] VITALS: BP 137/70
[2017-05-19] MEDS: HALOPERIDOL 0.5 MG (HALDOL) TAB PO SCH (08:22)
[2017-05-19] MEDS: busPIRone 5 MG (BUSPAR) TAB PO SCH (08:22)
[2017-05-19] MEDS: SCOPOLAMINE 1.5 MG (TRANSDERM-SCOP) PATCH TOP SCH (08:30)
[2017-05-19] MEDS: PATCH REMOVAL TP SCH (08:31)
--- NOTE | 2017-05-19 10:42 | Discharge Summary-Hospitalist ---
Diagnosis/Chief Complaint Date of Admission May 08, 2017 at 15:17 Date of Discharge Discharge Date: May 16, 2017 Admission Diagnosis Severe Sepsis Discharge Diagnosis Pt declined even more than yesterday Refusing to eat. Talked to RN and opened eyes but can't be understood Pt very debilitated Very declined A/P: MSSA Bacteremia sepsis Severe dementia on Hospice PD [place] Subdural hematoma 1 yr ago I spoke to Georgette Russell MD on the phone for 20 minutes and she updated me on her thoughts. After she talked for 15 minutes uninterrupted I told her that he was very declined and refused to eat and when I saw him today I saw imminent in the near future. She processed that information and said" so you are saying in your opinion if he was to recover he would have recovered long before the today?" of which I said exactly. Updated Donna with risk management and will likely continue abx and DC to [place] Tuesday on Hospice. Once again I spoke to Georgette Russell MD on the phone after I saw her father, as I had promised her yesterday, and found him to have rattle with upper airway secretions and declined from yesterday. He could not be understood. I explained this to Georgette and recommended her to see her father this weekend in case his time on this earth would be limited and everyone in agreement since he refused to eat or drink and having end-of-life signs he would be transferred back to [place] on Hospice. I updated Franklin Baez with Dr Proctor's office and he agreed with the plan. (1) Staphylococcus aureus bacteremia with sepsis Status: Acute Assessment & Plan: MSSA on culture- day 12 abx On hospice, palliative care consulted Repeat blood cultures NGTD (2) CITLALY (acute kidney injury) Status: Resolved Assessment & Plan: Baseline Creatinine 1.04 1.22 12/ Moya in place for comfort (3) Normocytic anemia Assessment & Plan: Mild (4) Severe dementia Status: Acute Assessment & Plan: On Hospice Palliative Care Consulted (5) Intracranial hemorrhage after injury without loss of consciousness Status: Acute Assessment & Plan: H/o subdural hematoma anticoagulation contraindicated (6) Counseling regarding end of life decision making Assessment & Plan: Discussed with daughter multiple previous days about prognosis and was very michaela about his very poor prognosis and that patient showing signs of active dying multiple days in a row but have been unable to talk with her today again as she is at work Discussed with , Bernice, yesterday as per multiple notes Bernice not currently here Discharged order placed and family has appealed discharge Will DC fluids as up 2.5kgs from yesterday and further edema (7) Thrombocytopenia Status: Chronic Assessment & Plan: Review of records shows baseline around low 100s Currently stable (8) Prophylactic measure Assessment & Plan: SCDs (h/o of Subdural) if tolerates Diet as tolerated Saline Lock Discharge Summary Discharge Physical Examination Allergies: Coded Allergies: No Known Drug Allergies (Unverified , 05/08/17) Vitals & I&Os Vital Signs Date Time Temp Pulse Resp B/P (MAP) Pulse Ox O2 Delivery O2 Flow Rate FiO2 05/19/17 08:18 98.0 142 18 137/70 (92) 96 Nasal Cannula 2.00 Hospital Course SW Review: Hospice will not keep the pt on IV. [facility] might, but it would be best to keep the pt on the hospice he has currently Pt has volume overload and keeping the pt on IV would likely make the pt more uncomfortable. Patient Interview: Family was contacted and informed of the condition of the pt and the coarseness in his lungs. Pt's daughter asked if the pt could continue IV abx treatment. The futility of this was discussed, since the pt is not eating or drinking. Hospice was discussed, and daughter does not want to take the pt off hospice. Daughter was assured that the pt looks comfortable even in his condition. I suggested DC back to NH off IV and to not worry about the pt remaining on hospice. Declining mental status was discussed. Pt has not been participating in PT. Daughter requested a call from case management to discuss whether there is a hospice that will let him stay on IV; she is very insistent on the pt remaining on IV. Plan: DC to [facility] Scribed by Talisha Davis under direct supervision of Dr. Jun Stafford. Labs (last 24 hrs) Microbiology 05/11/17 Blood Culture - Final, Complete No growth 05/08/17 Influenza Types A,B Antigen (KARISSA) - Final, Complete 05/08/17 Urine Culture - Final, Complete Staphylococcus Aureus Discharge Home Medications: Active Scripts Active Reported Trazodone HCl 50 Mg Tablet 50 Mg PO HS PRN Polymyxin B-Tmp Eye Drops (Polymyxin B Sulf/Trimethoprim) 10 Ml Drops 1 Drop OS EVERY 3 HOURS ORDERED 05/05/17 FOR A 7 DAY THERAPY Atropine 0.01%-Ns Eye Drops (Atropine Sulfate in 0.9% NaCl) 10 Ml Drops 4 Drops PO Q4H PRN Albuterol Sulfate 2.5 Mg/3 Ml Vial.neb 2.5 Mg IH Q4H PRN Mylanta Suspension (Al Hydrox/Mg Hydrox/Simethicone) 30 Ml Oral.susp 30 Ml PO Q4H PRN Loratadine 10 Mg Tablet 10 Mg PO DAILY Guaifenesin ER (Guaifenesin) 600 Mg Tab.er.12h 600 Mg PO Q12H PRN Ondansetron HCl 4 Mg Tablet 4 Mg PO Q6H PRN Morphine Sulfate Concentrate 20mg/ml (Morphine Sulfate) 100 Mg/5 Ml Solution 10- 20 Mg PO EVERY HOUR PRN 0.5-1 ML OF A (20MG/1ML) ORAL SOLUTION Azopt (Brinzolamide) 10 Ml Btl 1 Drop OU BID Xalatan (Latanoprost) 2.5 Ml Drops 1 Drop OU HS Tylenol (Acetaminophen) 325 Mg Tablet 650 Mg PO Q4H PRN TAKES 2 (325 MG) TABLETS Senokot-S Tablet (Sennosides/Docusate Sodium) 1 Each Tablet 1 Tab PO BID PRN Miralax (Polyethylene Glycol 3350) 17 Gm Powd.pack 17 Gm PO BID PRN Trazodone HCl 50 Mg Tablet 50 Mg PO HS Instructions to patient/family Please see electronic discharge instructions given to patient. Clinical Quality Measures DVT/VTE Risk/Contraindication: Risk Factor Score Per Nursin RFS Level Per Nursing on Admit: 4+=Very High Problem Qualifiers (1) Intracranial hemorrhage after injury without loss of consciousness: Encounter type: sequela Qualified Codes: S06.300S - 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, sequela JUN STAFFORD DO May 19, 2017 10:42
--- NOTE | 2017-05-20 12:53 | Physician Query Clarification ---
PQ-Intro New Diagnosis Admission/Discharge Admission Date: May 08, 2017 at 15:17 Discharge Date: May 19, 2017 at 12:30 The medical record reflects the following clinical scenario: History/Risk Factors: Sepsis UTI Clinical Findings: Lactic acid 2.97, blood pressure 82/50 (61) Treatment: IV fluids, IV Vancomycin ED physician, Dr. Garibay documented, "There are concerns for septic shock" on his ED record. I did not see further documentation regarding this. Also, please clarify the diagnosis abbreviated as PD on discharge summary. Question: What condition best reflects the above clinical scenario? Please document below. 1. Severe sepsis with septic shock. 2. Severe sepsis without septic shock. Septic shock ruled out. 3. Other, with explanation of the clinical findings. 4. Clinically undetermined, no explanation for the clinical findings. PHYSICIAN RESPONSE What condition reflects above: Other, explanation/clinical finding (please send this question to Dr Henry) Explanation of clincal finding Please inquire with Dr Henry who admitted the patient and took care of him for several days In responding to this query, please exercise your independent professional judgment. The purpose of this communication is to more accurately reflect the complexity of your patients condition. The fact that a question is asked does not imply that any particular answer is desired or expected. Thank you for your timely response to this clarification. Requestors name: Gregoria Meza [facility] Phone # [phone] or [phone] THIS PHYSICIAN QUERY FORM IS A PERMANENT PART OF THE MEDICAL RECORD GREGORIA MEZA May 20, 2017 12:53 JUN STAFFORD DO May 23, 2017 10:10
--- NOTE | 2017-05-25 14:18 | Physician Query Clarification ---
PQ-Intro New Diagnosis Admission/Discharge Admission Date: May 08, 2017 at 15:17 Discharge Date: May 19, 2017 at 12:30 The medical record reflects the following clinical scenario: History/Risk Factors: Sepsis UTI Clinical Findings: Lactic acid 2.97, blood pressure 82/50 (61) Treatment: IV fluids, IV Vancomycin ED physician, Dr. Garibay documented, "There are concerns for septic shock" in his documentation. I did not see further documentation regarding this. Question: What condition best reflects the above clinical scenario? Please document below. For documentation purposes, please also give dx. abbreviated with PD in record. 1. Severe sepsis with septic shock. 2. Severe sepsis without septic shock. Septic shock ruled out. 3. Other, with explanation of the clinical findings. 4. Clinically undetermined, no explanation for the clinical findings. PHYSICIAN RESPONSE What condition reflects above: 2 In responding to this query, please exercise your independent professional judgment. The purpose of this communication is to more accurately reflect the complexity of your patients condition. The fact that a question is asked does not imply that any particular answer is desired or expected. Thank you for your timely response to this clarification. Requestors name: [ ] Phone # [ ] THIS PHYSICIAN QUERY FORM IS A PERMANENT PART OF THE MEDICAL RECORD ELLI MEZA May 25, 2017 14:18 TEJAS BENSON MD May 25, 2017 16:35
== END 2017-05-19 12:30 | disposition hospice, home (50) | DRG 872 ==
LOC: EDUNIT# 10:15 → ER 10:16 → 4TH 15:17
PROVIDERS: ADMIT Internal Medicine; ATTEND Internal Medicine
DX: A41.01 Sepsis due to Methicillin susceptible Staphylococcus aureus (principal); R65.20 Severe sepsis without septic shock; N39.0 Urinary tract infection, site not specified; N17.9 Acute kidney failure, unspecified; F03.91 Unspecified dementia, unspecified severity, with behavioral disturbance; S06.300S Unspecified focal traumatic brain injury without loss of consciousness, sequela; R47.01 Aphasia; R13.12 Dysphagia, oropharyngeal phase; Z66 Do not resuscitate; D64.9 Anemia, unspecified; I48.91 Unspecified atrial fibrillation; I25.10 Atherosclerotic heart disease of native coronary artery without angina pectoris; I25.2 Old myocardial infarction; I10 Essential (primary) hypertension; K59.09 Other constipation; G47.9 Sleep disorder, unspecified; D69.6 Thrombocytopenia, unspecified; H40.9 Unspecified glaucoma; R26.81 Unsteadiness on feet; E87.70 Fluid overload, unspecified; Z95.5 Presence of coronary angioplasty implant and graft; Z86.73 Personal history of transient ischemic attack (TIA), and cerebral infarction without residual deficits; Z91.81 History of falling
CPT/HCPCS: 36415; 51701; 71010; 80048; 80053; 80202; 81000; 83605; 85007; 85025; 85027; 85610; 85730; 87040; 87077; 87088; 87186; 87804; 93005; 94640; 94664; 94760; 96360; 96361; 96365; 96366; 96367

== ENCOUNTER 2019-03-05 18:38 | Emergency (ER) | payer MEDICARE ==
[~2019-03-05] VITALS: Ht 170.1 cm; Wt 80.0 kg
[~2019-03-05 18:38] MED LIST changes: +ALBU2.5V4 IH; +ATRO10DR PO; +BUSP5TAB59 PO; +GUAI600T86 PO; +HALO0.5T PO; +LORA0.5T PO; +LORA10TA7 PO; +MAG30ORA2 PO; +MORP100S3 PO; +ONDA4TAB10 PO; +PLTR10OP OS; +ROCEPHIN IM; +SULF1TAB35 PO; +TRAZ-222 PO; -TRAZ-28 PO
[2019-03-05] MEDS ORDERED: NS IV 500 ML 500 ML IV ONE (18:44)
[2019-03-05] MEDS ORDERED: NS IV 1000 ML 1,000 ML IV SCH ×2 (18:44→19:49)
[2019-03-05] MEDS ORDERED: RT-ALBUTEROL SULF 2.5 MG/3 ML PRE-MIX VIAL INH STA (18:44)
[2019-03-05] MEDS ORDERED: RT-SODIUM CHL INHALATION 3 ML VIAL IH ONE (18:45)
[2019-03-05] MEDS ORDERED: RT-ALBUTEROL/IPRATROPIUM 3 ML (DUONEB) VIAL INH ONE (18:45)
[2019-03-05] MEDS ORDERED: CEFEPIME INJECTION 1,000 MG in WATER (STERILE) FOR INJECTION 10 ML IV ONE (18:45)
[2019-03-05] MEDS ORDERED: NS IV 1000 ML 0 ML ONE (18:48)
[2019-03-05 18:54] LABS: BASOPHILS % (AUTO) 0 % (0-10); EOSINOPHILS % (AUTO) 0 % (0-10); HEMATOCRIT 40 % (40-54); HEMOGLOBIN 12.9 G/DL (13.3-17.7); LYMPHOCYTES # (AUTO) 0.9 X 10^3 (1.0-4.0); LYMPHOCYTES % (AUTO) 6 % (12-44); MEAN CORPUSCULAR HEMOGLOBIN 29 PG (25-34); MEAN CORPUSCULAR HGB CONC 32 G/DL (32-36); MEAN CORPUSCULAR VOLUME 90 FL (80-99); MEAN PLATELET VOLUME 9.9 FL (7.4-10.4); MONOCYTES % (AUTO) 6 % (0-12); NEUTROPHILS % (AUTO) 88 % (42-75); PLATELET COUNT 148 10^3/uL (130-400); RED CELL DISTRIBUTION WIDTH 14.2 % (10.0-14.5); WHITE BLOOD COUNT 15.9 10^3/uL (4.3-11.0)
[2019-03-05 18:59] VITALS: BP 128/95
--- NOTE | 2019-03-05 18:59 | NUR ---
Pt placed on bipap at this time. settings 21/01.
[2019-03-05 19:05] LABS: INR 1.1 (0.8-1.4); PROTHROMBIN TIME PATIENT 14.7 SEC (12.2-14.7)
[2019-03-05 19:06] LABS: ABG BASE EXCESS -2.3 MMOL/L (-2.5-2.5); ABG OXYGEN SATURATION 100 % (94-100); ABG PCO2 39 MMHG (35-45); ABG PH 7.38 (7.37-7.43); ABG PO2 414 MMHG (79-93)
--- NOTE | 2019-03-05 19:06 | ED Respiratory ---
General Chief Complaint: Respiratory Problems Stated Complaint: SOB,DIFFICULTY BREATHING Source: patient, EMS Exam Limitations: clinical condition (Dementia) History of Present Illness Date Seen by Provider: Mar 05, 2019 Time Seen by Provider: 18:37 Initial Comments The patient [facility] the ER [facility] with chief complaint of shortness of breath. This apparently started Tuesday, 2 days ago. He received an albuterol breathing treatment for his COPD at 1800 from the [facility] and another albuterol treatment en route. He has increased work of breathing and shortness of air and gives no meaningful history. Records indicate he has atrial fibrillation but not on blood thinners. He does not ambulate. He is a DO NOT RESUSCITATE. Spoke to the daughter and his other daughter Goergette over the phone. They indicate he does not have a history of COPD. He had his flu shot last week. They do not want him to be resuscitated if he codes and they do not want him intubated. They indicate that this is in alignment with his wishes. Allergies and Home Medications Allergies Coded Allergies: No Known Drug Allergies (Unverified , 05/08/17) Home Medications Acetaminophen 325 Mg Tablet, 650 MG PO Q4H PRN for PAIN-MILD, (Reported) TAKES 2 (325 MG) TABLETS Albuterol Sulfate 2.5 Mg/3 Ml Vial.neb, 2.5 MG IH Q4H PRN for SHORTNESS OF BREATH, (Reported) Atropine Sulfate in 0.9% NaCl 10 Ml Drops, 4 DROPS PO Q4H PRN for EXCESSIVE SECRETIONS, (Reported) Brinzolamide 10 Ml Btl, 1 DROP OU BID, (Reported) Guaifenesin 600 Mg Tab.er.12h, 600 MG PO Q12H PRN for CONGESTION, (Reported) Latanoprost 2.5 Ml Drops, 1 DROP OU HS, (Reported) Loratadine 10 Mg Tablet, 10 MG PO DAILY, (Reported) Mag Hydrox/Al Hydrox/Simeth 30 Ml Oral.susp, 30 ML PO Q4H PRN for INDIGESTION, (Reported) Morphine Sulfate 100 Mg/5 Ml Solution, 10-20 MG PO EVERY HOUR PRN for PAIN- SEVERE, (Reported) 0.5-1 ML OF A (20MG/1ML) ORAL SOLUTION Ondansetron HCl 4 Mg Tablet, 4 MG PO Q6H PRN for NAUSEA/VOMITING-1ST LINE, (Reported) Polyethylene Glycol 3350 17 Gm Powd.pack, 17 GM PO BID PRN for CONSTIPATION, (Re ported) Polymyxin B Sulf/Trimethoprim 10 Ml Drops, 1 DROP OS EVERY 3 HOURS, (Reported) ORDERED 05/05/17 FOR A 7 DAY THERAPY Sennosides/Docusate Sodium 1 Each Tablet, 1 TAB PO BID PRN for CONSTIPATION, (Reported) Trazodone HCl 50 Mg Tablet, 50 MG PO HS, (Reported) Trazodone HCl 50 Mg Tablet, 50 MG PO HS PRN for SLEEP, (Reported) Patient Home Medication List Home Medication List Reviewed: Yes Review of Systems Review of Systems Constitutional: see HPI (History of present illness per EMS and staff); No chills, No fever EENTM: other (History of glaucoma) Respiratory: short of breath Past Jvkpdji-Hcwuxr-Xplmqb Hx Patient Social History Alcohol Use: Denies Use Recreational Drug Use: No 2nd Hand Smoke Exposure: No Recent Hopitalizations: No Immunizations Up To Date Tetanus Booster (TDap): Unknown Date of Pneumonia Vaccine: Jun 06, 2016 Date of Influenza Vaccine: Apr 22, 2017 Past Medical History Surgeries: Yes Cardiac, Coronary Stent Respiratory: No Currently Using CPAP: No Currently Using BIPAP: No Cardiac: Yes (STENT PLACEMENT) Atrial Fibrillation, Coronary Artery Disease, Heart Attack, Hypertension Neurological: Yes (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) Dementia, Stroke, Traumatic Brain Injury Genitourinary: Yes (current UTI) Gastrointestinal: Yes (DYSPHAGIA) Gastroesophageal Reflux, Chronic Constipation Musculoskeletal: Yes (UNSTEADY GAIT, FALLS, GENERALIZED WEAKNESS) Endocrine: Yes (hypo mag/phos/K+) HEENT: Yes Glaucoma Cancer: No Psychosocial: Yes (DEMENTIA WITH BEHAVIOR DISTURBANCE) Sleep Difficulties Integumentary: No Blood Disorders: No Family Medical History Patient reports no known family medical history. No Pertinent Family Hx Physical Exam Vital Signs - First Documented 03/05/19 03/05/19 18:42 19:07 Temp 37.7 Pulse 130 Resp 29 B/P (MAP) 128/95 (106) Pulse Ox 94 O2 Delivery Simple Mask O2 Flow Rate 10.00 FiO2 100 Capillary Refill : Height: 5'7.00" Weight: 173lbs. 6.0oz. 78.519847es; 26.2 BMI Method:Estimated General Appearance: severe distress, other (Chronically ill) Eyes: Bilateral Eye Normal Inspection, Bilateral Eye PERRL, Bilateral Eye EOMI HEENT: PERRL/EOMI; No pharynx normal (Oropharynx mucosa is very dry) Neck: non-tender, full range of motion Respiratory: respiratory distress (moderate), accessory muscle use (Moderate to severe), wheezing, expiration (Audible across the room) Cardiovascular: normal peripheral pulses, regular rate, rhythm, no edema Gastrointestinal: normal bowel sounds, non tender, soft, no organomegaly Extremities: normal range of motion, non-tender, normal capillary refill Neurologic/Psychiatric: alert, other Skin: normal color, warm/dry Focused Exam Sepsis Stage: Septic Shock Possible Source: Genitouriary Lactate Level 03/05/19 18:45: Lactic Acid Level 2.35*H 03/05/19 21:45: Lactic Acid Level 5.21*H Time of Focused Exam: 22:30 Respiratory: Lungs Clear, Normal Breath Sounds, No Accessory Muscle Use, No Respiratory Distress Cardiovascular: Regular Rate, Rhythm, No Edema, Normal Peripheral Pulses, Tachycardia Capillary Refill: Less Than 3 Seconds Peripheral Pulses: 2+ Radial Pulses (R), 2+ Radial Pulses (L) Skin: normal color, warm/dry Lactic Acid Level Laboratory Tests Test 03/05/19 18:45 03/05/19 21:45 Lactic Acid Level 2.35 MMOL/L (0.50-2.00) *H 5.21 MMOL/L (0.50-2.00) *H Within 3hrs of presentation: Admin fluids, Admin 30ml/kg IBW due to BMI>30, Admin ABX, Blood cultures prior to ABX's, Focus exam, Lactate level, Vasopressin therapy Procedures/Interventions Lumen: triple (7 [place] 20 cm long) Central Line Procedure: betadine prep (chlorhexidine), sterile drapes applied, sterile dressing applied Position: internal jugular (R) Anesthesia: Lidocaine Volume Anesthetic (ccs): 3 Complications: none Post Position: sutured, good blood return, position confirmed w/ CXR Suture Size: 4-0, 5-0 Progress/Results/Core Measures Suspected Sepsis SIRS Temperature: Pulse: Respiratory Rate: Laboratory Tests 03/05/19 18:45: White Blood Count 15.9H Blood Pressure / Mean: 03/05/19 18:45: Lactic Acid Level 2.35*H 03/05/19 21:45: Lactic Acid Level 5.21*H Laboratory Tests 03/05/19 18:45: Creatinine 1.14, INR Comment 1.1, Platelet Count 148, Total Bilirubin 0.9 Results/Orders Lab Results Laboratory Tests Test 03/05/19 18:40 03/05/19 18:45 03/05/19 19:00 03/05/19 19:53 Range/Units Lipase 18 8-78 U/L White Blood Count 15.9 H 4.3-11.0 10^3/uL Red Blood Count 4.47 4.35-5.85 10^6/uL Hemoglobin 12.9 L 13.3-17.7 G/DL Hematocrit 40 40-54 % Mean Corpuscular Volume 90 80-99 FL Mean Corpuscular Hemoglobin 29 25-34 PG Mean Corpuscular Hemoglobin Concent 32 32-36 G/DL Red Cell Distribution Width 14.2 10.0-14.5 % Platelet Count 148 130-400 10^3/uL Mean Platelet Volume 9.9 7.4-10.4 FL Neutrophils (%) (Auto) 88 H 42-75 % Lymphocytes (%) (Auto) 6 L 12-44 % Monocytes (%) (Auto) 6 0-12 % Eosinophils (%) (Auto) 0 0-10 % Basophils (%) (Auto) 0 0-10 % Neutrophils # (Auto) 14.0 H 1.8-7.8 X 10^3 Lymphocytes # (Auto) 0.9 L 1.0-4.0 X 10^3 Monocytes # (Auto) 1.0 0.0-1.0 X 10^3 Eosinophils # (Auto) 0.0 0.0-0.3 10^3/uL Basophils # (Auto) 0.0 0.0-0.1 10^3/uL Neutrophils % (Manual) 87 % Lymphocytes % (Manual) 9 % Monocytes % (Manual) 3 % Eosinophils % (Manual) 1 % Blood Morphology Comment NORMAL Prothrombin Time 14.7 12.2-14.7 SEC INR Comment 1.1 0.8-1.4 Activated Partial Thromboplast Time 29 24-35 SEC Sodium Level 141 135-145 MMOL/L Potassium Level 4.6 3.6-5.0 MMOL/L Chloride Level 106 98-107 MMOL/L Carbon Dioxide Level 25 21-32 MMOL/L Anion Gap 10 5-14 MMOL/L Blood Urea Nitrogen 15 7-18 MG/DL Creatinine 1.14 0.60-1.30 MG/DL Estimat Glomerular Filtration Rate > 60 BUN/Creatinine Ratio 13 Glucose Level 110 H 70-105 MG/DL Lactic Acid Level 2.35 *H 0.50-2.00 MMOL/L Calcium Level 9.0 8.5-10.1 MG/DL Corrected Calcium 9.2 8.5-10.1 MG/DL Total Bilirubin 0.9 0.1-1.0 MG/DL Aspartate Amino Transf (AST/SGOT) 18 5-34 U/L Alanine Aminotransferase (ALT/SGPT) 13 0-55 U/L Alkaline Phosphatase 107 40-136 U/L Troponin I 0.183 H <0.028 NG/ML Total Protein 7.8 6.4-8.2 GM/DL Albumin 3.8 3.2-4.5 GM/DL Blood Gas Puncture Site LT RADIAL Blood Gas Patient Temperature 37.7 Arterial Blood pH 7.38 7.37-7.43 Arterial Blood Partial Pressure CO2 39 35-45 MMHG Arterial Blood Partial Pressure O2 414 H 79-93 MMHG Arterial Blood HCO3 22 L 23-27 MMOL/L Arterial Blood Total CO2 23.0 21.0-31.0 MMOL/L Arterial Blood Oxygen Saturation 100 94-100 % Arterial Blood Base Excess -2.3 -2.5-2.5 MMOL/L Yaw Test YES-POS Blood Gas Ventilator Setting NO Blood Gas Inspired Oxygen 3 Urine Color YELLOW Urine Clarity VERY CLOUDY H Urine pH 5 5-9 Urine Specific [place] 1.025 H 1.016-1.022 Urine Protein 3+ H NEGATIVE Urine Glucose (UA) NEGATIVE NEGATIVE Urine Ketones NEGATIVE NEGATIVE Urine Nitrite POSITIVE H NEGATIVE Urine Bilirubin NEGATIVE NEGATIVE Urine Urobilinogen 1 NORMAL MG/DL Urine Leukocyte Esterase 3+ H NEGATIVE Urine RBC (Auto) 5+ H NEGATIVE Urine RBC 25-50 H /HPF Urine WBC >100 H /HPF Urine Squamous Epithelial Cells 5-10 /HPF Urine Crystals PRESENT H /LPF Urine Amorphous Sediment FEW LADONNA URATES H /LPF Urine Bacteria MODERATE H /HPF Urine Casts NONE /LPF Urine Mucus NEGATIVE /LPF Urine Culture Indicated CULTURE PENDING Test 03/05/19 21:45 Range/Units Lactic Acid Level 5.21 *H 0.50-2.00 MMOL/L Micro Results Microbiology 03/05/19 Influenza Types A,B Antigen (KARISSA) - Final, Complete My Orders Orders - DAWNA STEVENSON Cbc With Automated Diff (03/05/19 18:44) Comprehensive Metabolic Panel (03/05/19 18:44) Blood Culture (03/05/19 18:44) Sputum Culture (03/05/19 18:44) Urinalysis (03/05/19 18:44) Urine Culture (03/05/19 18:44) Protime With Inr (03/05/19 18:44) Partial Thromboplastin Time (03/05/19 18:44) Chest 1 View, Ap/Pa Only (03/05/19 18:44) Ed Iv/Invasive Line Start (03/05/19 18:44) Ed Iv/Invasive Line Start (03/05/19 18:44) Ekg Tracing (03/05/19 18:44) Troponin I (03/05/19 18:44) Vital Signs Adult Sepsis Patie Q15M (03/05/19 18:44) O2 (03/05/19 18:44) Remove Rings In Anticipation O (03/05/19 18:44) Lactic Acid Analyzer (03/05/19 18:44) Influenza A And B Antigens (03/05/19 18:44) Ns Iv 1000 Ml (Sodium Chloride 0.9%) (03/05/19 18:44) Cefepime Injection (Maxipime Injection) (03/05/19 18:45) Ed Iv/Invasive Line Start (03/05/19 18:44) Ns Iv 500 Ml (Sodium Chloride 0.9%) (03/05/19 18:44) Albuterol Pre-Mix Nebs (Rt) (Proventil (03/05/19 18:44) Albuterol/Ipra Inhalation Soln (Duoneb I (03/05/19 18:45) Sodium Chl Inhalation (Rt-Sodium Chl Inh (03/05/19 18:45) Svn Small Volume Nebulizer (03/05/19 18:44) Ns Iv 1000 Ml (Sodium Chloride 0.9%) (03/05/19 18:48) Arterial Blood Gas (03/05/19 18:59) Manual Differential (03/05/19 18:45) Lipase (03/05/19 19:44) Ketorolac Injection (Toradol Injection) (03/05/19 19:45) Ondansetron Injection (Zofran Injectio (03/05/19 19:45) Arterial Blood Draw (03/05/19 ) Catheter(Urinary) Insert & Ass 03,15 (03/05/19 19:49) Ed Iv/Invasive Line Start (03/05/19 19:49) Ns Iv 1000 Ml (Sodium Chloride 0.9%) (03/05/19 19:49) Diltiazem Injection (Cardizem Injection) (03/05/19 20:00) Ns (Ivpb) (Sodium C... W/Diltiazem Iv Fo (03/05/19 20:15) Lactated Ringers (Lr 1000 Ml Iv Solution (03/05/19 21:00) Enoxaparin Injection (Lovenox Injection) (03/05/19 21:00) Norepinephrine (Levophed) (03/05/19 21:00) Ns (Ivpb) (Sodium Chloride 0.9%) (03/05/19 20:56) Norepinephrine (Levophed) (03/05/19 20:56) Chest 1 View, Ap/Pa Only (03/05/19 21:39) Diltiazem Injection (Cardizem Injection) (03/05/19 22:13) Diltiazem Injection (Cardizem Injection) (03/05/19 22:15) Ekg Tracing (03/05/19 22:17) Medications Given in ED Current Medications Medications Dose Ordered Sig/Kelly Route Start Time Stop Time Status Last Admin Dose Admin Albuterol/ Ipratropium 3 ml ONCE ONCE INH 03/05/19 18:45 03/05/19 18:48 DC 03/05/19 19:07 3 ML Cefepime HCl 1000 mg/Sterile Water 10 ml @ 200 mls/hr ONCE ONCE IV 03/05/19 18:45 03/05/19 18:48 DC 03/05/19 19:30 200 MLS/HR Diltiazem HCl 10 mg ONCE ONCE IVP 03/05/19 20:00 03/05/19 20:01 DC 03/05/19 20:01 10 MG Diltiazem HCl 10 mg ONCE ONCE IVP 03/05/19 22:15 03/05/19 22:16 DC 03/05/19 22:19 10 MG Enoxaparin Sodium 80 mg ONCE ONCE SC 03/05/19 21:00 03/05/19 21:01 DC 03/05/19 21:12 80 MG Ketorolac Tromethamine 30 mg ONCE ONCE IVP 03/05/19 19:45 03/05/19 19:46 DC 03/05/19 20:00 30 MG Ondansetron HCl 4 mg ONCE ONCE IVP 03/05/19 19:45 03/05/19 19:46 DC 03/05/19 19:56 4 MG Sodium Chloride 500 ml @ 0 mls/hr Q0M ONCE IV 03/05/19 18:44 03/05/19 18:48 DC 03/05/19 18:55 500 MLS/HR Vital Signs/I&O 03/05/19 03/05/19 03/05/19 03/05/19 18:42 18:59 19:07 19:25 Temp 37.7 Pulse 130 130 129 Resp 29 33 24 B/P (MAP) 128/95 (106) Pulse Ox 94 100 100 100 O2 Delivery Simple Mask NIV Bilevel O2 Flow Rate 10.00 100.00 50.00 FiO2 100 03/05/19 03/05/19 03/05/19 03/05/19 19:45 20:24 20:30 22:16 Temp 36.9 Pulse 125 126 125 124 Resp 20 30 20 20 B/P (MAP) 107/80 102/80 Pulse Ox 100 97 100 100 O2 Delivery NIV Bilevel NIV/Bilevel O2 Flow Rate 40.00 40.00 03/05/19 23:16 Temp 36.4 Pulse 125 Resp 20 B/P (MAP) 111/55 (87) Pulse Ox 100 O2 Delivery NIV Bilevel O2 Flow Rate 10.00 03/06/19 00:00 Intake Total 1510 ml Balance 1510 ml Capillary Refill : Progress Note #1: Time: 19:08 Progress Note Septic workup with 1500 cc for a 20 mL/kg bolus. Cefepime for healthcare acquired pneumonia most likely. Hour-long breathing treatment, BiPAP, ABG, influenza screen, chest x-ray. If the fluids do not correct his tachycardia then we will start Cardizem drip. Progress Note #2: Time: 19:48 Progress Note His Work of breathing has decreased however his blood pressure had gotten soft and his heart rate continues to be about 130 despite about 750 cc of fluid in so far. Plan to initiate Levophed if necessary and after the fluids are in Cardizem if necessary for his A. fib with rapid ventricular response. Increase fluid volume to 30 mL/kg. Progress Note #3: Time: 20:43 Progress Note Updated daughter, Georgette. ICU Diversion. Daughter says he's been to [facility] before and would prefer that. She has concerns were that he could have a pulmonary embolism. Patient has good oxygenation and wheezing and fever so a pulmonary embolism seems less likely however he is demented and sedentary so is possible. He is not stable to go to the CT for an angiogram at this time. His blood pressure is very soft and his heart rate is still elevated. We are titrating up his Cardizem. We'll plan to just give him Lovenox and allow the inpatient team to address this concern at a later time. Progress Note #4: Time: 21:38 Progress Note Patient's pressure soft. Rather than doing cardioversion we are getting Levophed for what is assumed septic shock and continuing Cardizem. Progress Note #5: Time: 22:16 Progress Note Patient had some tachycardia on the monitor around 200 bpm but I suspect because of his Parkinson's and was picking up some artifact. Pulse was around 120 -140. Heart tones at 120. EKG ordered. Sinus tachycardia. Cardizem held. ECG Initial ECG Impression Date: Mar 05, 2019 Initial ECG Impression Time: 18:46 Initial ECG Rate: 146 Initial ECG Rhythm: A Fib/Flutter Initial ECG Intervals: QT (449) Initial ECG Impression: Atrial Fibrillation w/RVR Comment A fibrillation with rapid ventricular response. EKG : EKG Time: 22:23 Rate: 125 Rhythm: S.Tach Intervals: QT (485) ECG Comparisson: Changed Comment No ST elevation or depression. Diagnostic Imaging Diagonstic Imaging: Xray Plain Films/CT/US/NM/MRI: chest Comments NAME: TENISHA JOHNSON MED REC#: [id number] PT STATUS: REG ER : 1935 PHYSICIAN: DAWNA STEVENSON MD ADMIT DATE: 03/05/19/ER Signed Date of Exam:03/05/19 CHEST 1 VIEW, AP/PA ONLY INDICATION: Short of air. FINDINGS: Upright portable chest shows cardiomegaly with normal vascularity. No infiltrates or significant effusions are evident. There is no pneumothorax. IMPRESSION: There is cardiomegaly. The chest is similar to a study from 05/08/2017. Dictated by: Dictated on workstation # [id number] Dict: 03/05/191932 Trans: 03/05/191938 [id number] Interpreted by: KATYA GARCIA MD Electronically signed by: KATYA GARCIA MD 03/05/191938 Reviewed: Reviewed by Me Diagonstic Imaging: Xray Plain Films/CT/US/NM/MRI: chest (1v) Comments NAME: TENISHA JOHNSON [facility] REC#: [id number] PT STATUS: REG ER : 1935 PHYSICIAN: DAWNA STEVENSON MD ADMIT DATE: 03/05/19/ER Signed Date of Exam:03/05/19 CHEST 1 VIEW, AP/PA ONLY EXAM: CHEST 1 VIEW, AP/PA ONLY INDICATION: Line placement. COMPARISON: 03/05/2019 at 7:25 PM. FINDINGS: New right IJ CVC tip mid SVC. No pneumothorax. Stable cardiomegaly and increased pulmonary vascular congestion. Small bilateral pleural effusions. IMPRESSION: 1. New right IJ CVC tip mid SVC. 2. Stable cardiomegaly, increased pulmonary vascularity and small bilateral pleural effusions. Dictated by: Dictated on workstation # [id number] Dict: 03/05/192153 Trans: 03/05/192210 [facility] [id number] Interpreted by: NIC SCHAEFFER MD Electronically signed by: NIC SCHAEFFER MD 03/05/192210 Reviewed: Reviewed by Me Departure Impression Primary Impression: Atrial fibrillation with rapid ventricular response Additional Impressions: Pneumonia Qualified Codes: J18.9 - Pneumonia, unspecified organism UTI (urinary tract infection) Qualified Codes: N30.01 - Acute cystitis with hematuria Sepsis Qualified Codes: A41.9 - Sepsis, unspecified organism Disposition: [facility] Condition: Stable Transfer Time Spoke to Accepting Phy: 21:00 Transfer Progress Notes Discussed the case with Dr. Peña, spool winder at [place], [place] and he accepts the patient. Transfer Time: 23:16 Transfer Facility: [place], [place] Method of Transfer: EMS Departure-Patient Inst. Referrals: FÁTIMA MONTANA MD (PCP/Family) Primary Care Physician DAWNA STEVENSON Mar 05, 2019 19:06
[2019-03-05 19:08] LABS: ALLENS TEST YES-POS; INSPIRED O2 3; PATIENT TEMP 37.7; VENTILATOR NO
--- NOTE | 2019-03-05 19:09 | NUR ---
Pt unable to answer questions for safety assessment.
[2019-03-05 19:12] LABS: ALANINE AMINOTRANSFERASE 13 U/L (0-55); ALBUMIN 3.8 GM/DL (3.2-4.5); ALKALINE PHOSPHATASE 107 U/L (40-136); BILIRUBIN,TOTAL 0.9 MG/DL (0.1-1.0); BUN/CREATININE RATIO 13; CARBON DIOXIDE 25 MMOL/L (21-32); CHLORIDE 106 MMOL/L (98-107); CREATININE SERUM 1.14 MG/DL (0.60-1.30); GFR ESTIMATED > 60; GLUCOSE 110 MG/DL (70-105); POTASSIUM 4.6 MMOL/L (3.6-5.0); SODIUM 141 MMOL/L (135-145); TOTAL PROTEIN 7.8 GM/DL (6.4-8.2)
[2019-03-05 19:25] VITALS: BP 109/67
[2019-03-05 19:34] LABS: EOSINOPHILS % (MANUAL) 1 %; LYMPHOCYTES % (MANUAL) 9 %; MONOCYTES % (MANUAL) 3 %; NEUTROPHILS % (MANUAL) 87 %; RBC MORPH NORMAL
--- NOTE | 2019-03-05 19:35 | Diagnostic Imaging Report ---
INDICATION: Short of air. FINDINGS: Upright portable chest shows cardiomegaly with normal vascularity. No infiltrates or significant effusions are evident. There is no pneumothorax. IMPRESSION: There is cardiomegaly. The chest is similar to a study from 05/08/2017. Dictated by: Dictated on workstation # [id number]
[2019-03-05] MEDS ORDERED: KETOROLAC 30 MG/ML VIAL IVP ONE (19:45)
[2019-03-05] MEDS ORDERED: ONDANSETRON 4 MG/2 ML (SDV) Z0FRAN IVP ONE (19:45)
[2019-03-05 19:57] LABS: BILIRUBIN,URINE NEGATIVE (NEGATIVE); CLARITY,URINE VERY CLOUDY; COLOR,URINE YELLOW; GLUCOSE, URINE (UA) NEGATIVE (NEGATIVE); KETONES,URINE NEGATIVE (NEGATIVE); LEUKOCYTE ESTERASE ,URINE 3+ (NEGATIVE); NITRITE,URINE POSITIVE (NEGATIVE); PH,URINE 5 (5-9); PROTEIN,URINE 3+ (NEGATIVE); UROBILINOGEN,URINE 1 MG/DL (NORMAL)
[2019-03-05] MEDS ORDERED: DILTIAZEM 25 MG/5 ML INJ (CARDIZEM) VIAL IVP ONE ×2 (20:00→22:15)
[2019-03-05 20:06] LABS: AMORPHOUS SEDIMENT,UR FEW AMOR URATES /LPF; BACTERIA,URINE MODERATE /HPF; RBC,URINE 25-50 /HPF; WBC,URINE >100 /HPF
[2019-03-05] MEDS ORDERED: DILTIAZEM IV FOR DRIP 125 MG in NS (IVPB) 100 ML IV SCH (20:15)
[2019-03-05 20:24] VITALS: BP 111/68
--- NOTE | 2019-03-05 20:27 | NUR ---
bipap changed to 40% at this time by RT.
--- NOTE | 2019-03-05 20:54 | NUR ---
Report given to MARY Barnhart, to assume care of pt at this time.
[2019-03-05] MEDS ORDERED: NS (IVPB) 250 ML ONE (20:56)
[2019-03-05] MEDS ORDERED: NOREPINEPHRINE 4 MG/4 ML (LEVOPHED) AMP IV ONE (20:56)
[2019-03-05] MEDS ORDERED: LACTATED RINGERS 1,000 ML IV SCH (21:00)
[2019-03-05] MEDS ORDERED: ENOXAPARIN 80 MG/0.8 ML (LOVENOX) SYR SC ONE (21:00)
[2019-03-05] MEDS ORDERED: NOREPINEPHRINE 4 MG in NS (IVPB) 250 ML IV SCH (21:00)
--- NOTE | 2019-03-05 21:57 | Diagnostic Imaging Report ---
EXAM: CHEST 1 VIEW, AP/PA ONLY INDICATION: Line placement. COMPARISON: 03/05/2019 at 7:25 PM. FINDINGS: New right IJ CVC tip mid SVC. No pneumothorax. Stable cardiomegaly and increased pulmonary vascular congestion. Small bilateral pleural effusions. IMPRESSION: 1. New right IJ CVC tip mid SVC. 2. Stable cardiomegaly, increased pulmonary vascularity and small bilateral pleural effusions. Dictated by: Dictated on workstation # [id number]
[2019-03-05] MEDS ORDERED: DILTIAZEM 25 MG/5 ML INJ (CARDIZEM) VIAL ONE (22:13)
--- NOTE | 2019-03-05 22:13 | NUR ---
arrived to bedside to find pt's hr to be 180, levophed stopped per dr. arriola.
[2019-03-05 22:16] VITALS: BP 104/64
--- NOTE | 2019-03-05 22:23 | NUR ---
LEVOPHED DRIP INITIATED AFTER PT'S BP BECAME 74/[address] STEVENSON.
[2019-03-05 23:16] VITALS: BP 111/55
== END 2019-03-05 23:18 | disposition home or self-care (01) ==
LOC: EDUNIT# 18:38 → ER 18:39
DX: A41.9 Sepsis, unspecified organism (principal); J18.9 Pneumonia, unspecified organism; I48.91 Unspecified atrial fibrillation; N39.0 Urinary tract infection, site not specified; I10 Essential (primary) hypertension; I25.2 Old myocardial infarction; I25.10 Atherosclerotic heart disease of native coronary artery without angina pectoris; F03.91 Unspecified dementia, unspecified severity, with behavioral disturbance; K21.9 Gastro-esophageal reflux disease without esophagitis; Z95.5 Presence of coronary angioplasty implant and graft; Z86.73 Personal history of transient ischemic attack (TIA), and cerebral infarction without residual deficits; Z87.440 Personal history of urinary (tract) infections
CPT/HCPCS: 36415; 36600; 71045; 80053; 81000; 82805; 83605; 83690; 84484; 85007; 85027; 85610; 85730; 87040; 87077; 87088; 87804; 93005; 94640; 94660; 96361; 96365; 96367; 96372; 96375

== ENCOUNTER 2019-08-02 07:17 | Inpatient (IN) | payer MEDICARE ==
[~2019-08-02] VITALS: Ht 165 cm; Wt 65.6 kg
[2019-08-02] VITALS (14 sets, daily range): BP systolic 87–144; BP diastolic 56–92
[~2019-08-02 07:17] MED LIST changes: +ONDA-105 PO; -ONDA4TAB10 PO; -TRAZ-222 PO; +TRZ50T PO
[2019-08-02] MEDS ORDERED: LACTATED RINGERS 1,000 ML IV ONE ×3 (07:37→20:30)
[2019-08-02] MEDS ORDERED: SCOPOLAMINE 1.5 MG (TRANSDERM-SCOP) PATCH TD ONE (07:45)
[2019-08-02] MEDS ORDERED: ACETAMINOPHEN 650 MG SUPP (TYLENOL) PR ONE (07:45)
[2019-08-02] MEDS ORDERED: ONDANSETRON 4 MG/2 ML (SDV) Z0FRAN IVP ONE (07:45)
[2019-08-02 07:47] LABS: BASOPHILS % (AUTO) 0 % (0-10); EOSINOPHILS % (AUTO) 0 % (0-10); HEMATOCRIT 46 % (40-54); HEMOGLOBIN 15.1 G/DL (13.3-17.7); LYMPHOCYTES # (AUTO) 0.2 X 10^3 (1.0-4.0); LYMPHOCYTES % (AUTO) 2 % (12-44); MEAN CORPUSCULAR HEMOGLOBIN 30 PG (25-34); MEAN CORPUSCULAR HGB CONC 33 G/DL (32-36); MEAN CORPUSCULAR VOLUME 93 FL (80-99); MEAN PLATELET VOLUME 9.8 FL (7.4-10.4); MONOCYTES # (AUTO) 0.6 X 10^3 (0.0-1.0); MONOCYTES % (AUTO) 6 % (0-12); NEUTROPHILS # (AUTO) 10.2 X 10^3 (1.8-7.8); NEUTROPHILS % (AUTO) 92 % (42-75); PLATELET COUNT 139 10^3/uL (130-400); RED CELL DISTRIBUTION WIDTH 14.5 % (10.0-14.5); WHITE BLOOD COUNT 11.1 10^3/uL (4.3-11.0)
[2019-08-02 07:59] LABS: INR 1.1 (0.8-1.4); PROTHROMBIN TIME PATIENT 14.7 SEC (12.2-14.7)
[2019-08-02 08:06] LABS: ALBUMIN 4.2 GM/DL (3.2-4.5); BILIRUBIN,TOTAL 0.9 MG/DL (0.1-1.0); CALCIUM 9.3 MG/DL (8.5-10.1); CREATININE SERUM 1.68 MG/DL (0.60-1.30); MAGNESIUM 1.8 MG/DL (1.6-2.4); POTASSIUM 4.3 MMOL/L (3.6-5.0); TOTAL PROTEIN 7.5 GM/DL (6.4-8.2)
--- NOTE | 2019-08-02 08:13 | Diagnostic Imaging Report ---
INDICATION: Vomiting COMPARISON: 03/05/2019 TECHNIQUE: Single radiograph of the chest dated 08/02/2019. FINDINGS: The cardiac silhouette is mildly enlarged, though stable. No significant pulmonary vascular congestion. The right lung is clear. Minimal left basilar pleural-parenchymal opacity. No pneumothorax. No acute osseous abnormality. IMPRESSION: Small left basilar pleural-parenchymal opacity, felt to relate to a combination of pleural fluid with adjacent minimal atelectasis and/or infiltrate. Mild cardiomegaly without significant pulmonary vascular congestion. Dictated by: Dictated on workstation # [id number]
[2019-08-02 08:22] LABS: BILIRUBIN,URINE NEGATIVE (NEGATIVE); CLARITY,URINE CLOUDY; COLOR,URINE YELLOW; GLUCOSE, URINE (UA) NEGATIVE (NEGATIVE); KETONES,URINE NEGATIVE (NEGATIVE); LEUKOCYTE ESTERASE ,URINE 3+ (NEGATIVE); NITRITE,URINE POSITIVE (NEGATIVE); PH,URINE 6.5 (5-9); PROTEIN,URINE 1+ (NEGATIVE)
[2019-08-02] MEDS ORDERED: NS IV 1000 ML 1,000 ML IV SCH (08:26)
[2019-08-02] MEDS ORDERED: CEFEPIME INJECTION 2,000 MG in WATER (STERILE) FOR INJECTION 20 ML IV ONE (08:30)
[2019-08-02 08:33] LABS: BACTERIA,URINE MODERATE /HPF; WBC,URINE TNTC /HPF
[2019-08-02 08:41] LABS: BAND NEUTROPHILS 17 %; BASOPHILS % (MANUAL) 0 %; EOSINOPHILS % (MANUAL) 0 %; LYMPHOCYTES % (MANUAL) 3 %; MONOCYTES % (MANUAL) 7 %; NEUTROPHILS % (MANUAL) 73 %
[2019-08-02 08:42] LABS: RBC MORPH NORMAL
[2019-08-02] MEDS: NS IV 1000 ML 1,000 ML IV SCH ×2 (09:30→10:39)
[2019-08-02] MEDS: LACTATED RINGERS 1,000 ML IV SCH ×4 (10:39→21:03)
--- NOTE | 2019-08-02 10:42 | Pulmonary Consultation ---
History of Present Illness History of Present Illness Date Seen by Provider: Aug 02, 2019 Time Seen by Provider: 10:38 Date of Admission Allergies and Home Medications Allergies Coded Allergies: No Known Drug Allergies (Unverified , 05/08/17) Home Medications Acetaminophen 325 Mg Tablet, 650 MG PO Q4H PRN for PAIN-MILD, (Reported) TAKES 2 (325 MG) TABLETS Albuterol Sulfate 2.5 Mg/3 Ml Vial.neb, 2.5 MG IH Q4H PRN for SHORTNESS OF BREATH, (Reported) Atropine Sulfate in 0.9% NaCl 10 Ml Drops, 4 DROPS PO Q4H PRN for EXCESSIVE SECRETIONS, (Reported) Brinzolamide 10 Ml Btl, 1 DROP OU BID, (Reported) Guaifenesin 600 Mg Tab.er.12h, 600 MG PO Q12H PRN for CONGESTION, (Reported) Latanoprost 2.5 Ml Drops, 1 DROP OU HS, (Reported) Loratadine 10 Mg Tablet, 10 MG PO DAILY, (Reported) Mag Hydrox/Al Hydrox/Simeth 30 Ml Oral.susp, 30 ML PO Q4H PRN for INDIGESTION, (Reported) Morphine Sulfate 100 Mg/5 Ml Solution, 10-20 MG PO EVERY HOUR PRN for PAIN- SEVERE, (Reported) 0.5-1 ML OF A (20MG/1ML) ORAL SOLUTION Ondansetron HCl 4 Mg Tablet, 4 MG PO Q6H PRN for NAUSEA/VOMITING-1ST LINE, (Reported) Polyethylene Glycol 3350 17 Gm Powd.pack, 17 GM PO BID PRN for CONSTIPATION, (Reported) Polymyxin B Sulf/Trimethoprim 10 Ml Drops, 1 DROP OS EVERY 3 HOURS, (Reported) ORDERED 05/05/17 FOR A 7 DAY THERAPY Sennosides/Docusate Sodium 1 Each Tablet, 1 TAB PO BID PRN for CONSTIPATION, (Reported) Trazodone HCl 50 Mg Tablet, 50 MG PO HS, (Reported) Trazodone HCl 50 Mg Tablet, 50 MG PO HS PRN for SLEEP, (Reported) Past Impgebj-Awqvda-Aoavzx Hx Patient Social History Alcohol Use: Denies Use Recreational Drug Use: No Smoking Status: Never a Smoker 2nd Hand Smoke Exposure: No Recent Foreign Travel: No Contact w/Someone Who Travel: No Recent Infectious Disease Expo: No Recent Hopitalizations: No Physical Abuse: No Sexual Abuse: No Mistreated: No Fear: No Immunizations Up To Date Tetanus Booster (TDap): Unknown Date of Pneumonia Vaccine: Jun 06, 2016 Date of Influenza Vaccine: Mar 02, 2019 Past Medical History Surgeries: Yes Cardiac, Coronary Stent Respiratory: No Currently Using CPAP: No Currently Using BIPAP: No Cardiac: Yes (STENT PLACEMENT) Atrial Fibrillation, Coronary Artery Disease, Heart Attack, Hypertension Neurological: Yes (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) Dementia, Stroke, Traumatic Brain Injury Genitourinary: Yes (current UTI) Gastrointestinal: Yes (DYSPHAGIA) Gastroesophageal Reflux, Chronic Constipation Musculoskeletal: Yes (UNSTEADY GAIT, FALLS, GENERALIZED WEAKNESS) Endocrine: Yes (hypo mag/phos/K+) HEENT: Yes Glaucoma Cancer: No Psychosocial: Yes (DEMENTIA WITH BEHAVIOR DISTURBANCE) Sleep Difficulties Integumentary: No Blood Disorders: No Family Medical History Patient reports no known family medical history. No Pertinent Family Hx Review of Systems Time Seen by Provider: 10:57 Sepsis Event Evaluation Height, Weight, BMI Height: 5'7.00" Weight: 173lbs. 6.0oz. 78.334696kg; 23.00 BMI Method:Estimated Exam Exam Vital Signs Date Time Temp Pulse Resp B/P (MAP) Pulse Ox O2 Delivery O2 Flow Rate FiO2 08/02/19 10:00 154 20 118/79 98 Nasal Cannula 3.00 08/02/19 08:19 37.6 154 20 120/79 Nasal Cannula 3.00 08/02/19 07:20 37.8 137 25 92/78 (83) 97 Nasal Cannula 3.00 08/02/19 07:20 96 Nasal Cannula 3.00 Height & Weight Height: 5'7.00" Weight: 173lbs. 6.0oz. 78.597662ct; 23.00 BMI Method:Estimated Capillary Refill: Less Than 3 Seconds Results Lab Laboratory Tests 08/02/19 07:30 Assessment/Plan Assessment/Plan severe sepsis -Change abx to vanco/zosyn -Yeager cultures pending -Continue cefepime -MRSA swab pending -Obtain PICC line. -Influenza neg Metabolic lactic acidosis -IVF Nausea/vomiting -Zofran PRN ARF -IVF -Monitor Atelectasis -Monitor RADHA CASTAÑEDA DO Aug 02, 2019 10:41
--- NOTE | 2019-08-02 10:48 | History & Physical-Hospitalist ---
LESLIE EDWARDS,MED STUDENT 08/02/19 1048: History of Present Illness HPI/Chief Complaint Mr. Gann is an 84 year old male transported to [facility] ED via EMS with projectile vomiting, lethargy and possible sepsis. At the time of this exam he is obtunded and unable to give a history, and his family is not yet at the bedside. According to previous records he has a history of multiple falls, dementia, traumatic brain injury with intracranial bleeding, atrial fibrillation, and coronary artery disease. Source: RN/MD Exam Limitations: clinical condition Date Seen 08/02/19 Time Seen by a Provider: 10:30 Attending Physician Linh Stafford John D MD Referring Physician Date of Admission Aug 02, 2019 at 09:47 Home Medications & Allergies Home Medications Reviewed patient Home Medication Reconciliation performed by pharmacy medication reconciliations voip network technician and/or nursing. Patients Allergies have been reviewed. Allergies Allergies Coded Allergies No Known Drug Allergies ([id number]/3/17) Past Mexgrnu-Qwvmxu-Fmaczb Hx Patient Social History Alcohol Use: Denies Use Recreational Drug Use: No Smoking Status: Never a Smoker 2nd Hand Smoke Exposure: No Recent Foreign Travel: No Contact w/other who traveled: No Recent Hopitalizations: No Recent Infectious Disease Expo: No Immunizations Up To Date Tetanus Booster (TDap): Unknown Date of Pneumonia Vaccine: Jun 06, 2016 Date of Influenza Vaccine: Mar 02, 2019 Past Medical History Surgeries: Cardiac, Coronary Stent Currently Using CPAP: No Currently Using BIPAP: No Cardiac: Atrial Fibrillation, Coronary Artery Disease, Heart Attack, Hypertension Neurological: Dementia, Stroke, Traumatic Brain Injury Gastrointestinal: Gastroesophageal Reflux, Chronic Constipation HEENT: Glaucoma Psychosocial: Sleep Difficulties History of Blood Disorders: No Family History Patient reports no known family medical history. No Pertinent Family Hx Review of Systems ROS-Unable to Obtain: Unable to obtain due to patient's clinical condition Physical Exam Physical Exam Vital Signs Vital Signs - First Documented 08/02/19 07:20 Temp 37.8 Pulse 137 Resp 25 B/P (MAP) 92/78 (83) Pulse Ox 96 O2 Delivery Nasal Cannula O2 Flow Rate 3.00 Capillary Refill : Less Than 3 Seconds Height, Weight, BMI Height: 5'7.00" Weight: 173lbs. 6.0oz. [id number]; 23.00 BMI Method:Estimated General Appearance: Chronically ill, Mild Distress HEENT: Pharynx Normal, Moist Mucous Membranes Respiratory: Lungs Clear, No Accessory Muscle Use, No Respiratory Distress; No Wheezing Cardiovascular: No Edema, No JVD, No Murmur, Tachycardia Gastrointestinal: Normal Bowel Sounds, No Organomegaly, Soft; No Distended Extremity: Normal Capillary Refill, No Pedal Edema Neurologic/Psychiatric: Other (Decreased level of consciousness) Skin: Normal Color, Warm/Dry Results Results/Procedures Labs Laboratory Tests 08/02/19 07:30 Patient resulted labs reviewed. Assessment/Plan Admission Diagnosis Sepsis Urinary tract infection Hematuria Proteinuria Leukocytosis Lactic acidosis Acute kidney failure Dementia Hx of falls Coronary artery disease Atrial fibrillation Hx of stent placement Hx of stroke Glaucoma per records Hypertension per records Assessment and Plan Sepsis Urinary tract infection Hematuria Proteinuria Leukocytosis Lactic acidosis Acute kidney failure Dementia Hx of falls Coronary artery disease Atrial fibrillation Hx of stent placement Hx of stroke Glaucoma per records Hypertension per records IV fluids Cefipime Q12H IV Norepinephrine IV Lactic acidosis improving - continue to monitor SCD's in place for DVT prophylaxis LINH STAFFORD DO 08/02/192104: History of Present Illness HPI/Chief Complaint CC: Altered mental status HPI: This is an 82yoWM senior living pt known to the hospital service due to severe dementia who presented from the senior living with altered mental status found to have septic shock due to UTI. Pt is officially a DNR and family was updated. Dr. Lyons was consulted, IV fluid resuscitation was initiated along with broad spectrum antibiotics. Pt is non sonya al and appears to be at the end stage of his life. 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 Review of Systems Constitutional: see HPI Physical Exam Physical Exam General Appearance: Chronically ill, Cachetic, Mild Distress, Other (lethargic) Respiratory: Decreased Breath Sounds, Rales, Wheezing Cardiovascular: Regular Rate, Rhythm Neurologic/Psychiatric: Disoriented Assessment/Plan Admission Diagnosis Septic shock DNR Prognosis guarded Admission Status: Inpatient Order (span 2 midnights) Reason for Inpatient Admission: septic shock Diagnosis/Problems Diagnosis/Problems (1) Sepsis Status: Acute (2) Severe dementia Status: Acute (3) UTI (urinary tract infection) Status: Acute Supervisory-Addendum Brief Verification & Attestation Participated in pt care: history, MDM, physical Personally performed: exam, history, MDM, supervision of care Care discussed with: Medical Student Procedures: n/a Results interpretation: Verified all documentation Verification and Attestation of Medical Student E/M Service A medical student performed and documented this service in my presence. I revi ewed and verified all information documented by the medical student and made modifications to such information, when appropriate. I personally performed the physical exam and medical decision making. Linh Stafford, Aug 02, 2019,21:05 LESLEI EDWARDS,MED STUDENT Aug 02, 2019 10:48 LINH STAFFORD DO Aug 02, 2019 21:05
[2019-08-02] MEDS ORDERED: PHARMACY TO DOSE IV SCH (11:00)
[2019-08-02] MEDS ORDERED: ONDANSETRON 4 MG/2 ML (SDV) Z0FRAN IVP PRN (11:00)
[2019-08-02] MEDS ORDERED: LACTATED RINGERS 1,000 ML IV SCH (11:00)
[2019-08-02] MEDS ORDERED: PIPERACILLIN/TAZO 4.5 GM/NS 100 ML IV NR ×2 (11:00)
[2019-08-02] MEDS ORDERED: PIPERACILLIN/TAZOBACTAM (BULK) 4.5 GM in NS (IVPB) 100 ML IV SCH (11:00)
[2019-08-02] MEDS ORDERED: EPINEPHrine 1 MG INJECTION 2 MG in NS (IVPB) 250 ML IV SCH (11:15)
--- NOTE | 2019-08-02 11:21 | NUR ---
CR 1.68; CR CL ~27; WT 63 KG; VANCO 1500 MG IV BOLUS THEN 1000 MG IV Q24H; TROUGH AFTER 2ND DOSE
[2019-08-02] MEDS ORDERED: VANCOMYCIN 1500 MG/NS 500 ML IVPB IV NR ×2 (11:30)
--- NOTE | 2019-08-02 11:50 | NUR ---
Pastoral care visit.
[2019-08-02] MEDS: VASOPRESSIN INJECTION 20 UNIT in NORMAL SALINE 100 ML IV SCH ×2 (11:56→19:57)
[2019-08-02] MEDS: NOREPINEPHRINE 4 MG/250 ML 250 ML IV SCH ×2 (11:56→12:05)
[2019-08-02] MEDS ORDERED: ACET650S15 RC (12:38)
[2019-08-02] MEDS ORDERED: PROM25SU44 RC (12:38)
[2019-08-02] MEDS ORDERED: DORZ10DR27 OU (12:38)
[2019-08-02] MEDS ORDERED: KETO15CR2 TP (13:22)
--- NOTE | 2019-08-02 13:23 | NUR ---
ENTERED MED REC USING THE PHYSICIAN ORDER SUMMARY FROM VIA ANIKA MUNOZ I ALSO CALLED TO FIND OUT WHAT PHARM TO SEND OUTGOING RX'S AND WAS TOLD ANA CRISTINA- THAT HAS BEEN UPDATED
--- NOTE | 2019-08-02 13:25 | ED General ---
General Chief Complaint: Abdominal/GI Problems Stated Complaint: SEPTIC SHOCK;UTI;PNEUMONIA;N/V;DEHYDRATION Nursing Triage Note: PT TO ER WITH C/O PROJECTIILE VOMITING AND NH REPORTS PT HAS BEEN LETHARGIC WITH LOW GRADE FEVER Nursing Sepsis Screen: Possible Sepsis Risk Source of Information: EMS, Senior Care Records Exam Limitations: Other (PT IS NOT TALKING OR FOLLOWING COMMANDS. ) History of Present Illness Date Seen by Provider: Aug 02, 2019 Time Seen by Provider: 07:35 Initial Comments PT ARRIVES VIA EMS FROM [facility]--VIA [facility] REPORT FROM SENIOR [facility]IVING TO EMS WAS THAT PT "HAS BEEN VOMITING ALL NIGHT" "AND POSSIBLY ASPIRATED" PT HAS BEEN VERY LETHARGIC PT HAS HAD LOW BLOOD PRESSURE AND BEEN TACHYCARDIC PT HAS ALSO HAD "LOW GRADE FEVER" NO OTHER INFORMATION IS OBTAINABLE AT THIS TIME. PT IS DNR/DNI PER S[facility]IOR [facility]IVING PAPERS. PCP: DR. MELO, PER [facility] PAPERS. Allergies and Home Medications Allergies Coded Allergies: No Known Drug Allergies (Unverified , 05/08/17) Home Medications Acetaminophen 325 Mg Tablet, 650 MG PO Q4H PRN for PAIN-MILD, (Reported) TAKES 2 (325 MG) TABLETS Acetaminophen 650 Mg Supp.rect, 650 MG RC Q4H PRN for PAIN-MILD (1-4) OR TEMPATURE, (Reported) Albuterol Sulfate 2.5 Mg/3 Ml Vial.neb, 2.5 MG IH Q8H PRN for SHORTNESS OF BREATH, (Reported) Latanoprost 2.5 Ml Drops, 1 DROP OU HS, (Reported) Ondansetron HCl 4 Mg Tablet, 4 MG PO Q6H PRN for NAUSEA/VOMITING-1ST LINE, (Reported) Polyethylene Glycol 3350 17 Gm Powd.pack, 17 GM PO BID PRN for CONSTIPATION-2ND LINE, (Reported) Promethazine HCl 25 Mg Supp.rect, 25 MG RC Q6H PRN for NAUSEA/VOMITING-2ND LINE, (Reported) Patient Home Medication List Home Medication List Reviewed: Yes Review of Systems Review of Systems Constitutional: other (UNABLE TO OBTAIN FROM PT) Past Gucxuco-Xleqtn-Atocxi Hx Past Med/Social Hx: Reviewed and Corrections made Patient Social History Alcohol Use: Denies Use Recreational Drug Use: No Smoking Status: Never a Smoker 2nd Hand Smoke Exposure: No Recent Foreign Travel: No Contact w/Someone Who Travel: No Recent Infectious Disease Expo: No Recent Hopitalizations: No Physical Abuse: No Sexual Abuse: No Mistreated: No Fear: No Immunizations Up To Date Tetanus Booster (TDap): Unknown Date of Pneumonia Vaccine: Jun 06, 2016 Date of Influenza Vaccine: Mar 02, 2019 Past Medical History Surgeries: Yes Cardiac, Coronary Stent Respiratory: Yes (WEARS HOME O2) Currently Using CPAP: No Currently Using BIPAP: No Cardiac: Yes (STENT PLACEMENT; CHRONIC ATRIAL FIBRILLATION) Atrial Fibrillation, Coronary Artery Disease, Heart Attack, Hypertension Neurological: Yes (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; CONGINITIVE COMMUNICATION DEFICIT) Dementia, Parkinson's Disease (PER DAUGHTER, BUT NOT ON MEDICATIONS FOR PARKINSON'S), Stroke, Traumatic Brain Injury Genitourinary: Yes (current UTI) Gastrointestinal: Yes (DYSPHAGIA) Gastroesophageal Reflux, Chronic Constipation Musculoskeletal: Yes (UNSTEADY GAIT, FALLS, GENERALIZED WEAKNESS;CONTRACTURES OF KNEES) Contracture Endocrine: Yes (hypo mag/phos/K+) HEENT: Yes Dysphagia, Glaucoma Cancer: No Psychosocial: Yes (DEMENTIA WITH BEHAVIOR DISTURBANCE AND PSYCHOSIS/DELUSIONS) Sleep Difficulties, Depression Integumentary: Yes (TINEA PEDIS) Blood Disorders: Yes (ANEMIA) Family Medical History Patient reports no known family medical history. No Pertinent Family Hx ELECTROLYE IMBALANCES Physical Exam Vital Signs Vital Signs - First Documented 08/02/19 07:20 Temp 37.8 Pulse 137 Resp 25 B/P (MAP) 92/78 (83) Pulse Ox 96 O2 Delivery Nasal Cannula O2 Flow Rate 3.00 Capillary Refill : Less Than 3 Seconds Height, Weight, BMI Height: 5'7.00" Weight: 173lbs. 6.0oz. 78.001226zc; 23.00 BMI Method:Estimated General Appearance: Other (PT VERY LETHARGIC, KEEPS EYES CLOSED, MOANS WITH EACH EXHALATION. ) Respiratory: Decreased Breath Sounds (IN BASES), Other (MILDLY DYSPNEIC) Cardiovascular: Tachycardia (160) Gastrointestinal: Soft Neurologic/Psychiatric: Other (MENTATION ABOVE--ONLY MOANS, IS NOT TALKING OR FOLLOWING COMMANDS. VERY LETHARGIC. ) Skin: Warm/Dry, Pallor Focused Exam Lactate Level 08/02/19 07:30: Lactic Acid Level 8.02*H 08/02/19 09:50: Lactic Acid Level 4.79*H 08/02/19 12:02: Lactic Acid Level 3.76*H Lactic Acid Level Laboratory Tests Test 08/02/19 09:50 08/02/19 12:02 Lactic Acid Level 4.79 MMOL/L (0.50-2.00) *H 3.76 MMOL/L (0.50-2.00) *H Procedures/Interventions Suture Size: 4-0, 5-0 Progress/Results/Core Measures Suspected Sepsis Recent Fever Within 48 Hours: Yes Infection Criteria Present: Suspected New Infection New/Unexplained Altered Menta: No Sepsis Screen: Possible Sepsis Risk SIRS Temperature: Pulse: 158 Respiratory Rate: 13 Laboratory Tests 08/02/19 07:30: White Blood Count 11.1H Blood Pressure 87 /56 Mean: 66 08/02/19 07:30: Lactic Acid Level 8.02*H 08/02/19 09:50: Lactic Acid Level 4.79*H 08/02/19 12:02: Lactic Acid Level 3.76*H Laboratory Tests 08/02/19 07:30: Creatinine 1.68H, INR Comment 1.1, Platelet Count 139, Total Bilirubin 0.9 Results/Orders Lab Results Laboratory Tests Test 08/02/19 07:30 08/02/19 07:33 08/02/19 07:50 08/02/19 09:50 Range/Units White Blood Count 11.1 H 4.3-11.0 10^3/uL Red Blood Count 5.00 4.35-5.85 10^6/uL Hemoglobin 15.1 13.3-17.7 G/DL Hematocrit 46 40-54 % Mean Corpuscular Volume 93 80-99 FL Mean Corpuscular Hemoglobin 30 25-34 PG Mean Corpuscular Hemoglobin Concent 33 32-36 G/DL Red Cell Distribution Width 14.5 10.0-14.5 % Platelet Count 139 130-400 10^3/uL Mean Platelet Volume 9.8 7.4-10.4 FL Neutrophils (%) (Auto) 92 H 42-75 % Lymphocytes (%) (Auto) 2 L 12-44 % Monocytes (%) (Auto) 6 0-12 % Eosinophils (%) (Auto) 0 0-10 % Basophils (%) (Auto) 0 0-10 % Neutrophils # (Auto) 10.2 H 1.8-7.8 X 10^3 Lymphocytes # (Auto) 0.2 L 1.0-4.0 X 10^3 Monocytes # (Auto) 0.6 0.0-1.0 X 10^3 Eosinophils # (Auto) 0.0 0.0-0.3 10^3/uL Basophils # (Auto) 0.0 0.0-0.1 10^3/uL Neutrophils % (Manual) 73 % Lymphocytes % (Manual) 3 % Monocytes % (Manual) 7 % Eosinophils % (Manual) 0 % Basophils % (Manual) 0 % Band Neutrophils 17 % Blood Morphology Comment NORMAL Prothrombin Time 14.7 12.2-14.7 SEC INR Comment 1.1 0.8-1.4 Activated Partial Thromboplast Time 27 24-35 SEC Sodium Level 141 135-145 MMOL/L Potassium Level 4.3 3.6-5.0 MMOL/L Chloride Level 103 98-107 MMOL/L Carbon Dioxide Level 23 21-32 MMOL/L Anion Gap 15 H 5-14 MMOL/L Blood Urea Nitrogen 21 H 7-18 MG/DL Creatinine 1.68 H 0.60-1.30 MG/DL Estimat Glomerular Filtration Rate 39 BUN/Creatinine Ratio 13 Glucose Level 177 H 70-105 MG/DL Lactic Acid Level 8.02 *H 4.79 *H 0.50-2.00 MMOL/L Calcium Level 9.3 8.5-10.1 MG/DL Corrected Calcium 9.1 8.5-10.1 MG/DL Magnesium Level 1.8 1.6-2.4 MG/DL Total Bilirubin 0.9 0.1-1.0 MG/DL Aspartate Amino Transf (AST/SGOT) 13 5-34 U/L Alanine Aminotransferase (ALT/SGPT) 8 0-55 U/L Alkaline Phosphatase 94 40-136 U/L Troponin I 0.037 H <0.028 NG/ML B-Type Natriuretic Peptide 584.3 H <100.0 PG/ML Total Protein 7.5 6.4-8.2 GM/DL Albumin 4.2 3.2-4.5 GM/DL Amylase Level 136 H 25-125 U/L Lipase 12 8-78 U/L Glucometer 163 H 70-110 MG/DL Urine Color YELLOW Urine Clarity CLOUDY Urine pH 6.5 5-9 Urine Specific [place] 1.025 H 1.016-1.022 Urine Protein 1+ H NEGATIVE Urine Glucose (UA) NEGATIVE NEGATIVE Urine Ketones NEGATIVE NEGATIVE Urine Nitrite POSITIVE H NEGATIVE Urine Bilirubin NEGATIVE NEGATIVE Urine Urobilinogen 0.2 < = 1.0 MG/DL Urine Leukocyte Esterase 3+ H NEGATIVE Urine RBC (Auto) 2+ H NEGATIVE Urine RBC 2-5 H /HPF Urine WBC TNTC H /HPF Urine Squamous Epithelial Cells NONE /HPF Urine Crystals NONE /LPF Urine Bacteria MODERATE H /HPF Urine Casts NONE /LPF Urine Mucus NEGATIVE /LPF Urine Culture Indicated CULTURE PENDING Test 08/02/19 12:02 Range/Units Lactic Acid Level 3.76 *H 0.50-2.00 MMOL/L Micro Results Microbiology 08/02/19 Influenza Types A,B Antigen (KARISSA) - Final, Complete My Orders Orders - NATALIE WOOD DO Accucheck Stat ONCE (08/02/19 07:37) Ekg Tracing (08/02/19 07:37) Catheter(Urinary) Insert & Ass 03,15 (08/02/19 07:37) O2 (08/02/19 07:37) Monitor-Rhythm Ecg Trace Only (08/02/19 07:37) Amylase (08/02/19 07:37) Cbc With Automated Diff (08/02/19 07:37) Comprehensive Metabolic Panel (08/02/19 07:37) Lipase (08/02/19 07:37) Magnesium (08/02/19 07:37) Protime With Inr (08/02/19 07:37) Partial Thromboplastin Time (08/02/19 07:37) Ua Culture If Indicated (08/02/19 07:37) Blood Culture (08/02/19 07:37) Influenza A And B Antigens (08/02/19 07:37) Troponin I (08/02/19 07:37) Ondansetron Injection (Zofran Injectio (08/02/19 07:45) Ed Iv/Invasive Line Start (08/02/19 07:37) Lactated Ringers (Lr 1000 Ml Iv Solution (08/02/19 07:37) Acetaminophen Suppository (Tylenol Suppo (08/02/19 07:45) Scopolamine Patch (Transderm-Scop Patch) (08/02/19 07:45) Chest 1 View, Ap/Pa Only (08/02/19 07:45) Urine Culture (08/02/19 07:50) Ed Iv/Invasive Line Start (08/02/19 07:50) Vital Signs Adult Sepsis Patie Q15M (08/02/19 07:50) O2 (08/02/19 07:50) Remove Rings In Anticipation O (08/02/19 07:50) Lactic Acid Analyzer (08/02/19 07:50) Manual Differential (08/02/19 07:30) Ed Iv/Invasive Line Start (08/02/19 08:26) Ns Iv 1000 Ml (Sodium Chloride 0.9%) (08/02/19 08:26) Cefepime Injection (Maxipime Injection) (08/02/19 08:30) Ed Iv/Invasive Line Start (08/02/19 08:38) Lactated Ringers (Lr 1000 Ml Iv Solution (08/02/19 08:38) Ed Iv/Invasive Line Start (08/02/19 09:53) Ns Iv 1000 Ml (Sodium Chloride 0.9%) (08/02/19 09:53) Medications Given in ED Current Medications Medications Dose Ordered Sig/Kelly Route Start Time Stop Time Status Last Admin Dose Admin Acetaminophen 1,300 mg ONCE ONCE MD 08/02/19 07:45 08/02/19 07:46 DC 08/02/19 07:58 1,300 MG Cefepime HCl 2000 mg/Sterile Water 20 ml @ 240 mls/hr ONCE ONCE IV 08/02/19 08:30 08/02/19 08:34 DC 08/02/19 08:44 240 MLS/HR Lactated Ringer's 1,000 ml @ 0 mls/hr Q0M ONCE IV 08/02/19 07:37 08/02/19 07:40 DC 08/02/19 07:52 999 MLS/HR Lactated Ringer's 1,000 ml @ 0 mls/hr Q0M ONCE IV 08/02/19 08:38 08/02/19 08:39 DC 08/02/19 08:42 999 MLS/HR Ondansetron HCl 4 mg ONCE ONCE IVP 08/02/19 07:45 08/02/19 07:46 DC 08/02/19 07:52 4 MG Scopolamine 1.5 mg ONCE ONCE TD 2/27/20 07:45 08/02/19 07:46 DC 08/02/19 07:57 1.5 MG Vital Signs/I&O 08/02/19 08/02/19 08/02/19 08/02/19 07:20 07:20 08:19 10:00 Temp 37.8 37.6 Pulse 137 154 154 Resp 25 20 20 B/P (MAP) 92/78 (83) 120/79 118/79 Pulse Ox 96 97 98 O2 Delivery Nasal Cannula Nasal Cannula Nasal Cannula Nasal Cannula O2 Flow Rate 3.00 3.00 3.00 3.00 08/02/19 08/02/19 08/02/19 08/02/19 10:15 11:00 12:00 12:05 Pulse 156 138 124 Resp 18 28 15 B/P (MAP) 95/65 (75) 95/86 (89) 103/92 (96) 73/53 Pulse Ox 100 99 99 O2 Delivery Room Air Room Air Room Air 08/02/19 08/02/19 12:29 13:00 Pulse 129 158 Resp 13 B/P (MAP) 87/56 (66) Pulse Ox 98 O2 Delivery Room Air Capillary Refill : Less Than 3 Seconds Blood Pressure Mean: 66 Point of Care Testing Finger Stick Blood Glucose: 163 Progress Note : Progress Note GIVEN ZOFRAN AND SCOPOLAMINE PATCH--NO VOMITING DURING ER STAY PT GIVEN 4 LITERS OF FLUIDS, WITH SLIGHT DECREASE IN HEART RATE, AND BLOOD PRESSURE UP TO > 100 SYSTOLIC. GIVEN ANTIBIOTICS, AND NEB TREATMENT. GIVEN TYLENOL SUPPOSITORY ECG Initial ECG Impression Date: Aug 02, 2019 Initial ECG Impression Time: 08:00 Initial ECG Rate: 156 Initial ECG Rhythm: SVT Diagnostic Imaging Comments CXR--SMALL LEFT BASILAR OPACITY, POSSIBLY PLEURAL FLUID WITH ADJACENT MINIMAL ATELECTASIS/INFILTRATE, MILD CARDIOMEGALY--PER RADIOLGOIST REPORT Reviewed: Reviewed by Me Critical Care Note Critical Care Total Time (minutes) 30 MINUTES Departure Communication (Admissions) Family Conversation 0848--SPOKE WITH PT'S DAUGHTER, YUVAL. SHE ADVISES THAT PT IS DNR/DNI, SHE ADVISES THAT SHE IS "OK WITH ANTIBIOTICS, OK WITH LEVOPHED OR OTHER PRESSOR, AND OK WITH CENTRAL LINE" BUT NO MULTIPLE PRESSORS, NO INTUBATION, NO SURGERY, NO DIALYSIS. SHE REPORTS THAT PT HAS CHRONIC ATRIAL FIB AND HAS HAD RVR IN THE PAST, BUT IS NOT ON ANTICOAGULATION TO TO FALL RISK SHE REPORTS THAT PT HAS HAD SIMILAR ISSUES IN THE PAST WITH SEVERE SEPSIS/SEPTIC SHOCK [id number] WITH DR. STAFFORD, ACCEPTS PT FOR ADMIT. Impression Primary Impression: Septic shock Additional Impressions: UTI (urinary tract infection) POSSIBLE PNEUMONIA Nausea and vomiting Chronic atrial fibrillation Dehydration ACUTE RENAL FAILURE/INSUFFICIENCY Dementia Atrial fibrillation with RVR SEVERE LACTIC ACIDOSIS Disposition: ADMITTED INPATIENT Condition: Stable Admissions Decision to Admit Reason: Admit from ER (General) Decision to Admit/Date: Aug 02, 2019 Time/Decision to Admit Time: 09:00 Departure-Patient Inst. Referrals: FÁTIMA MONTANA MD (PCP) Primary Care Physician NATALIE WOOD DO Aug 02, 2019 13:25
--- NOTE | 2019-08-02 13:36 | Diagnostic Imaging Report ---
INDICATION: PICC line placement Portable chest 1:27 PM Left upper extremity PICC line tip projects over the SVC. Heart size and pulmonary vascularity are normal. There is some infiltrate or atelectasis at the left costophrenic junction. IMPRESSION: PICC line tip projects over the SVC. Patchy or consolidation left lower lung base +/- effusion. Dictated by: Dictated on workstation # [id number]
[2019-08-02] MEDS: PIPERACILLIN/TAZO 4.5 GM/NS 100 ML IV SCH ×2 (16:30)
--- NOTE | 2019-08-02 20:27 | NUR ---
dr quiroz contacted due to pt heart rhythm being afib and rate being anywhere from 130s-170s. orders given for 1 liter bolus and to defer to e-[facility]. [facility] contacted and informed of current vitals. orders given. see order history
[2019-08-02] MEDS ORDERED: DIGOXIN 0.25 MG/ML (LANOXIN) 2 ML AMP ONE (20:29)
[2019-08-02] MEDS ORDERED: CEFEPIME 1,000 MG/SWFI 10 ML IV PUSH IV SCH ×2 (20:30)
[2019-08-02] MEDS ORDERED: DIGOXIN 0.25 MG/ML (LANOXIN) 2 ML AMP IV ONE (20:45)
[2019-08-02] MEDS ORDERED: dilTIAZem DRIP PRE-MIX 125 ML IV ONE (20:56)
[2019-08-02] MEDS: dilTIAZem DRIP PRE-MIX 125 ML IV SCH (21:03)
--- NOTE | 2019-08-02 21:23 | Consultation-Cardiology ---
HPI-Cardiology Cardiology Consultation Date of Consultation 08/02/19 Date of Admission Time Seen by Provider: 21:20 Indication: tachycardia HPI 84 years old gentleman with history of dementia, not verbal, admitted with projectile vomiting and sepsis, hypotensive, has history of chronic atrial fibrillation, has been tachycardic since admission. I was called for atrial fibrillation with rapid ventricular response and hypertension. 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 Review of Systems-General Review of Systems Constitutional: see HPI, other (unable to provide review of systems) Reviewed Test Results Reviewed Test Results Lab Laboratory Tests Test 08/02/19 07:30 08/02/19 07:33 08/02/19 07:50 08/02/19 09:50 Range/Units White Blood Count 11.1 H 4.3-11.0 10^3/uL Red Blood Count 5.00 4.35-5.85 10^6/uL Hemoglobin 15.1 13.3-17.7 G/DL Hematocrit 46 40-54 % Mean Corpuscular Volume 93 80-99 FL Mean Corpuscular Hemoglobin 30 25-34 PG Mean Corpuscular Hemoglobin Concent 33 32-36 G/DL Red Cell Distribution Width 14.5 10.0-14.5 % Platelet Count 139 130-400 10^3/uL Mean Platelet Volume 9.8 7.4-10.4 FL Neutrophils (%) (Auto) 92 H 42-75 % Lymphocytes (%) (Auto) 2 L 12-44 % Monocytes (%) (Auto) 6 0-12 % Eosinophils (%) (Auto) 0 0-10 % Basophils (%) (Auto) 0 0-10 % Neutrophils # (Auto) 10.2 H 1.8-7.8 X 10^3 Lymphocytes # (Auto) 0.2 L 1.0-4.0 X 10^3 Monocytes # (Auto) 0.6 0.0-1.0 X 10^3 Eosinophils # (Auto) 0.0 0.0-0.3 10^3/uL Basophils # (Auto) 0.0 0.0-0.1 10^3/uL Neutrophils % (Manual) 73 % Lymphocytes % (Manual) 3 % Monocytes % (Manual) 7 % Eosinophils % (Manual) 0 % Basophils % (Manual) 0 % Band Neutrophils 17 % Blood Morphology Comment NORMAL Prothrombin Time 14.7 12.2-14.7 SEC INR Comment 1.1 0.8-1.4 Activated Partial Thromboplast Time 27 24-35 SEC Sodium Level 141 135-145 MMOL/L Potassium Level 4.3 3.6-5.0 MMOL/L Chloride Level 103 98-107 MMOL/L Carbon Dioxide Level 23 21-32 MMOL/L Anion Gap 15 H 5-14 MMOL/L Blood Urea Nitrogen 21 H 7-18 MG/DL Creatinine 1.68 H 0.60-1.30 MG/DL Estimat Glomerular Filtration Rate 39 BUN/Creatinine Ratio 13 Glucose Level 177 H 70-105 MG/DL Lactic Acid Level 8.02 *H 4.79 *H 0.50-2.00 MMOL/L Calcium Level 9.3 8.5-10.1 MG/DL Corrected Calcium 9.1 8.5-10.1 MG/DL Magnesium Level 1.8 1.6-2.4 MG/DL Total Bilirubin 0.9 0.1-1.0 MG/DL Aspartate Amino Transf (AST/SGOT) 13 5-34 U/L Alanine Aminotransferase (ALT/SGPT) 8 0-55 U/L Alkaline Phosphatase 94 40-136 U/L Troponin I 0.037 H <0.028 NG/ML B-Type Natriuretic Peptide 584.3 H <100.0 PG/ML Total Protein 7.5 6.4-8.2 GM/DL Albumin 4.2 3.2-4.5 GM/DL Amylase Level 136 H 25-125 U/L Lipase 12 8-78 U/L Glucometer 163 H 70-110 MG/DL Urine Color YELLOW Urine Clarity CLOUDY Urine pH 6.5 5-9 Urine Specific [place] 1.025 H 1.016-1.022 Urine Protein 1+ H NEGATIVE Urine Glucose (UA) NEGATIVE NEGATIVE Urine Ketones NEGATIVE NEGATIVE Urine Nitrite POSITIVE H NEGATIVE Urine Bilirubin NEGATIVE NEGATIVE Urine Urobilinogen 0.2 < = 1.0 MG/DL Urine Leukocyte Esterase 3+ H NEGATIVE Urine RBC (Auto) 2+ H NEGATIVE Urine RBC 2-5 H /HPF Urine WBC TNTC H /HPF Urine Squamous Epithelial Cells NONE /HPF Urine Crystals NONE /LPF Urine Bacteria MODERATE H /HPF Urine Casts NONE /LPF Urine Mucus NEGATIVE /LPF Urine Culture Indicated CULTURE PENDING Test 08/02/19 12:02 08/02/19 14:45 08/02/19 16:33 Range/Units Lactic Acid Level 3.76 *H 2.82 *H 2.00 0.50-2.00 MMOL/L Physical Exam Physical Exam Vital Signs Vital Signs - First Documented 08/02/19 07:20 Temp 37.8 Pulse 137 Resp 25 B/P (MAP) 92/78 (83) Pulse Ox 96 O2 Delivery Nasal Cannula O2 Flow Rate 3.00 Capillary Refill : Less Than 3 Seconds Height, Weight, BMI Height: 5'7.00" Weight: 173lbs. 6.0oz. 78.553277bc; 23.00 BMI Method:Estimated General Appearance: Chronically ill, Cachetic, Severe Distress, Other (lethargic) HEENT: Pharynx Normal, Moist Mucous Membranes Respiratory: Decreased Breath Sounds, Rales, Wheezing Cardiovascular: Irregularly Irregular, Tachycardia Gastrointestinal: Soft Extremity: Normal Capillary Refill, No Pedal Edema Neurologic/Psychiatric: Disoriented Skin: Warm/Dry, Pallor A/P-Cardiology Admission Diagnosis Sepsis Septic shock Atrial fibrillation Tachycardia Assessment/Plan Sepsis and septic shock, receiving antibiotic and IV fluid and pressors. Atrial fibrillation, history of chronic atrial fibrillation, currently tachycardic, started on IV fluid bolus. Blood pressure is better, tolerating low-dose Cardizem and started on Cardizem drip Dementia, unable to provide history. History of head trauma with multiple falls History of coronary artery disease Clinical Quality Measures DVT/VTE Risk/Contraindication: Risk Factor Score Per Nursin RFS Level Per Nursing on Admit: 4+=Very High LAZ,BASHAR J MD Aug 02, 2019 21:23
[2019-08-03] VITALS (25 sets, daily range): BP systolic 82–166; BP diastolic 45–92
[2019-08-03] MEDS: LACTATED RINGERS 1,000 ML IV SCH ×2 (00:35→03:46)
[2019-08-03] MEDS: PIPERACILLIN/TAZO 4.5 GM/NS 100 ML IV SCH ×6 (00:37→17:07)
[2019-08-03] MEDS: VASOPRESSIN INJECTION 20 UNIT in NORMAL SALINE 100 ML IV SCH ×3 (01:24→20:07)
[2019-08-03 03:16] LABS: BASOPHILS % (AUTO) 0 % (0-10); EOSINOPHILS % (AUTO) 0 % (0-10); HEMATOCRIT 37 % (40-54); HEMOGLOBIN 12.2 G/DL (13.3-17.7); LYMPHOCYTES # (AUTO) 0.6 X 10^3 (1.0-4.0); LYMPHOCYTES % (AUTO) 6 % (12-44); MEAN CORPUSCULAR HEMOGLOBIN 31 PG (25-34); MEAN CORPUSCULAR HGB CONC 33 G/DL (32-36); MEAN CORPUSCULAR VOLUME 93 FL (80-99); MEAN PLATELET VOLUME 9.4 FL (7.4-10.4); MONOCYTES # (AUTO) 0.3 X 10^3 (0.0-1.0); MONOCYTES % (AUTO) 3 % (0-12); NEUTROPHILS # (AUTO) 8.5 X 10^3 (1.8-7.8); NEUTROPHILS % (AUTO) 91 % (42-75); PLATELET COUNT 97 10^3/uL (130-400); RED CELL DISTRIBUTION WIDTH 14.6 % (10.0-14.5); WHITE BLOOD COUNT 9.4 10^3/uL (4.3-11.0)
[2019-08-03 03:34] LABS: BUN/CREATININE RATIO 15; CALCIUM 7.9 MG/DL (8.5-10.1); CARBON DIOXIDE 21 MMOL/L (21-32); CHLORIDE 107 MMOL/L (98-107); CREATININE SERUM 1.08 MG/DL (0.60-1.30); GFR ESTIMATED > 60; GLUCOSE 138 MG/DL (70-105); MAGNESIUM 1.4 MG/DL (1.6-2.4); PHOSPHORUS 2.3 MG/DL (2.3-4.7); POTASSIUM 4.1 MMOL/L (3.6-5.0); SODIUM 139 MMOL/L (135-145)
[2019-08-03] MEDS ORDERED: MAGNESIUM 1 GM/100 ML IVPB 200 ML IV ONE (03:35)
[2019-08-03] MEDS: MAGNESIUM 1 GM/100 ML IVPB 100 ML IV SCH (03:42)
--- NOTE | 2019-08-03 05:29 | Pulmonary Progress Note ---
Subjective Time Seen by a Provider: 05:24 Subjective/Events-last exam Pt is doing better. Sepsis Event Evaluation Height, Weight, BMI Height: 5'7.00" Weight: 173lbs. 6.0oz. 78.979981po; 23.00 BMI Method:Estimated Focused Exam Lactate Level 08/02/19 12:02: Lactic Acid Level 3.76*H 08/02/19 14:45: Lactic Acid Level 2.82*H 08/02/19 16:33: Lactic Acid Level 2.00 Exam Exam Vital Signs Date Time Temp Pulse Resp B/P (MAP) Pulse Ox O2 Delivery O2 Flow Rate FiO2 08/03/19 04:00 80 22 151/91 (111) 96 Room Air 08/03/19 03:33 98 Nasal Cannula 3.00 08/03/19 03:33 37.4 08/03/19 03:00 105 23 134/83 (100) 95 Room Air 08/03/19 02:00 101 16 136/87 (103) 96 Room Air 08/03/19 01:00 81 08/03/19 01:00 83 22 151/81 (104) 97 Room Air 08/03/19 00:00 80 21 145/76 (99) 97 Room Air 08/02/19 23:29 37.3 08/02/19 23:29 98 Nasal Cannula 3.00 08/02/19 23:00 86 23 139/81 (100) 97 Room Air 08/02/19 22:00 102 17 136/76 (96) 97 Room Air 08/02/19 21:00 111 18 111/70 (84) 97 Room Air 08/02/19 20:00 131 15 110/82 (91) 98 Room Air 08/02/19 20:00 98 Nasal Cannula 3.00 08/02/19 19:15 37.6 08/02/19 19:00 163 13 99/86 (90) 98 Room Air 08/02/19 19:00 165 08/02/19 18:00 161 9 144/71 (95) 99 Room Air 08/02/19 17:00 146 18 133/74 (93) 98 Room Air 08/02/19 16:00 160 15 129/84 (99) 99 Room Air 08/02/19 16:00 98 Nasal Cannula 3.00 08/02/19 15:16 37.3 08/02/19 15:00 154 14 91/72 (78) 100 Room Air 08/02/19 14:00 160 13 93/57 (69) 98 Room Air 08/02/19 13:00 158 13 87/56 (66) 98 Room Air 08/02/19 12:29 129 08/02/19 12:05 73/53 08/02/19 12:00 98 Nasal Cannula 3.00 08/02/19 12:00 124 15 103/92 (96) 99 Room Air 08/02/19 11:00 138 28 95/86 (89) 99 Room Air 08/02/19 10:30 Nasal Cannula 3.00 08/02/19 10:15 156 18 95/65 (75) 100 Room Air 08/02/19 10:00 154 20 118/79 98 Nasal Cannula 3.00 08/02/19 08:19 37.6 154 20 120/79 Nasal Cannula 3.00 08/02/19 07:20 37.8 137 25 92/78 (83) 97 Nasal Cannula 3.00 08/02/19 07:20 96 Nasal Cannula 3.00 I & O 08/03/19 06:59 Intake Total 8635 ml Output Total 975 ml Balance 7660 ml Height & Weight Height: 5'7.00" Weight: 173lbs. 6.0oz. 78.800446os; 23.00 BMI Method:Estimated General Appearance: Chronically ill, Cachetic, Severe Distress, Other (lethargic) HEENT: Pharynx Normal, Moist Mucous Membranes Respiratory: Decreased Breath Sounds, Rales, Wheezing Cardiovascular: Irregularly Irregular, Tachycardia Capillary Refill: Less Than 3 Seconds Extremity: Normal Capillary Refill, No Pedal Edema Neurologic/Psychiatric: Disoriented Skin: Warm/Dry, Pallor Results Lab Laboratory Tests 08/02/19 07:30 08/03/19 03:02 Assessment/Plan Assessment/Plan severe sepsis - improving - vanco/zosyn -Yeager cultures pending -MRSA swab pending -PICC line. -Influenza neg Pulmonary edema -Will give 20mg of IV Lasix -KVO IVF Nausea/vomiting -Zofran PRN Thrombocytopenia -Monitor ARF -IVF -Monitor Atelectasis -Monitor RADHA CASTAÑEDA DO Aug 03, 2019 05:29
[2019-08-03] MEDS ORDERED: FUROSEMIDE 40 MG/4 ML INJ (LASIX) IVP ONE (05:30)
[2019-08-03] MEDS ORDERED: FUROSEMIDE 40 MG/4 ML INJ (LASIX) ONE (05:38)
[2019-08-03] MEDS ORDERED: ENOXAPARIN 40 MG/0.4 ML (LOVENOX) SYR ONE (05:39)
[2019-08-03] MEDS ORDERED: methylPREDNISolone 40 MG/ML (Solu-MEDROL) VIAL ONE (05:41)
[2019-08-03] MEDS: ENOXAPARIN 40 MG/0.4 ML (LOVENOX) SYR SC SCH (05:45)
[2019-08-03] MEDS: methylPREDNISolone 40 MG/ML (Solu-MEDROL) VIAL IV SCH ×4 (05:46→23:13)
--- NOTE | 2019-08-03 07:33 | Diagnostic Imaging Report ---
Portable erect AP chest at 321 hours. INDICATION: Septic shock. FINDINGS: The cardiomegaly noted on prior exam of 08/02/2019 is again evident and no different. The previous study did suggest a patchy area of consolidation overlying the left lung base. That finding is also again visualized and essentially unchanged. The left upper lung and right lung remain relatively clear. The mediastinum is not widened. The osseous structures are intact. Left-sided PICC line is unchanged in position. IMPRESSION: Stable chest. There has been no adverse change since the prior exam. A follow-up study would be recommended for continued evaluation. Dictated by: Dictated on workstation # [id number]
--- NOTE | 2019-08-03 07:52 | Cardiology Progress Note ---
Subjective Date Seen by Provider: Aug 03, 2019 Time Seen by Provider: 07:50 Subjective/Events-last exam Patient is in bed, not following command, doesn't open his eyes Review of Systems General: Other (Unable to provide review of systems) Focused Exam Lactate Level 08/02/19 12:02: Lactic Acid Level 3.76*H 08/02/19 14:45: Lactic Acid Level 2.82*H 08/02/19 16:33: Lactic Acid Level 2.00 Objective-Cardiology Exam Last Set of Vital Signs Vital Signs 08/03/19 09:00 Pulse 87 Resp 18 B/P (MAP) 107/62 (77) Pulse Ox 98 O2 Delivery Room Air Capillary Refill : Less Than 3 Seconds I&O Intake and Output 08/03/19 00:00 Intake Total 7635 ml Output Total 775 ml Balance 6860 ml Intake Oral 0 ml IV Total 7635 ml Output Urine Total 775 ml Daily Weight Change No General: Other (Doesn't follow commands) HEENT: Atraumatic Neck: Supple Lungs: Other (Bilateral rhonchi) Heart: Normal S1, Normal S2, Other (Atrial fibrillation) Abdomen: Normal Bowel Sounds Extremities: No Clubbing, No Cyanosis Skin: No Rashes Neuro: Other (Doesn't respond to questions) Psych/Mental Status: Other (Doesn't respond to questions) Results Lab Laboratory Tests 08/03/19 03:02 A/P-Cardiology Admission Diagnosis Sepsis Septic shock Atrial fibrillation Tachycardia Assessment/Plan Sepsis, improving, receiving IV antibiotics. Chronic atrial fibrillation, rate better controlled on Cardizem drip. Continue to monitor, evaluate 2-D echo Congestive heart failure, severe cardiomyopathy ejection fraction 20-25 percent, probably ischemic in nature, compensated at this time, receiving IV fluids, monitor closely Coronary artery disease, history of multiple stents in the past. Unable to provide a history. I will try to obtain more information from his family Dementia, unable to provide history. History of head trauma with multiple falls History of coronary artery disease Clinical Quality Measures DVT/VTE Risk/Contraindication: Risk Factor Score Per Nursin RFS Level Per Nursing on Admit: 4+=Very High FELIX NESBITT MD Aug 03, 2019 07:52
[2019-08-03] MEDS: RT-ALBUTEROL/IPRATROPIUM 3 ML (DUONEB) VIAL INH SCH ×5 (08:00→22:20)
--- NOTE | 2019-08-03 08:27 | Speech Therapy Progress Note ---
Therapy Progress Note ST received a bedsideBDE for the patient per Dr. Lyons orders. ST attempted to complete BDE and patient was unresponsive to all verbal and tactile cues provided to begin and safely complete the evaluation. ST will follow up this afternoon. ASA FERNANDES Aug 03, 2019 08:27
[2019-08-03] MEDS: NOREPINEPHRINE 4 MG/250 ML 250 ML IV SCH ×2 (08:32→17:08)
--- NOTE | 2019-08-03 08:49 | Progress Note - Hospitalist ---
Subjective HPI/CC On Admission Date Seen by Provider: Aug 03, 2019 Time Seen by Provider: 08:45 CC: Altered mental status HPI: This is an 82[facility] pt known to the hospital service due to severe dementia who presented from the [facility] with altered mental status found to have septic shock due to UTI. Pt is officially a DNR and family was updated. Dr. Lyons was consulted, IV fluid resuscitation was initiated along with broad spectrum antibiotics. Pt is non sonya al and appears to be at the end stage of his life. Subjective/Events-last exam Patient remains obtunded and choking on any oral intake. A gag reflex is present however the patient has a very weak cough. He has rattling respirations. Focused Exam Lactate Level 08/02/19 12:02: Lactic Acid Level 3.76*H 08/02/19 14:45: Lactic Acid Level 2.82*H 08/02/19 16:33: Lactic Acid Level 2.00 Objective Exam Vital Signs Vital Signs Date Time Temp Pulse Resp B/P (MAP) Pulse Ox O2 Delivery O2 Flow Rate FiO2 08/03/19 08:00 97 Nasal Cannula 1.00 08/03/19 07:45 37.2 08/03/19 07:00 76 08/03/19 06:00 26 135/74 (94) Capillary Refill : Less Than 3 Seconds General Appearance: Chronically ill HEENT: Other (Dry mucous membranes) Neck: Limited Range of Motion Respiratory: Crackles, Rales Cardiovascular: Regular Rate, Rhythm, Systolic Murmur Gastrointestinal: Normal Bowel Sounds, Non Tender, Soft Rectal: Deferred Extremity: No Pedal Edema, Other (Some contractures) Skin: Pallor Results/Procedures Lab Laboratory Tests 08/03/19 03:02 Patient resulted labs reviewed. Imaging: Reviewed Imaging Report Assessment/Plan Assessment and Plan Assess & Plan/Chief Complaint Sepsis-on Vanco and Zosyn Urinary tract infection-culture pending Hematuria-presumed secondary to UTI Proteinuria Leukocytosis Lactic acidosis-secondary to sepsis and proving Acute kidney failure-secondary to dehydration improved today Dementia-severe patient is a DO NOT RESUSCITATE Hx of falls-currently nonambulatory Coronary artery disease with stent placement in the past Atrial fibrillation-chronic Hx of stroke Glaucoma per records Hypertension per records-currently hypotensive Hypomagnesemia replace Clinical Quality Measures DVT/VTE Risk/Contraindication: Risk Factor Score Per Nursin RFS Level Per Nursing on Admit: 4+=Very High PAL PHILLIPS MD Aug 03, 2019 08:49
[2019-08-03] MEDS ORDERED: SODIUM PHOSPHATE INJ 15 MM in D5W 100 ML IVPB 100 ML IV ONE (09:00)
[2019-08-03] MEDS: PANTOPRAZOLE 40 MG (PROTONIX) VIAL IV SCH (10:14)
[2019-08-03] MEDS ORDERED: VANCOMYCIN 1 GM/NS 250 ML IVPB IV SCH ×2 (11:30)
[2019-08-03] MEDS: ACETAMINOPHEN 325 MG SUPP (TYLENOL) PR PRN ×2 (12:49→20:31)
--- NOTE | 2019-08-03 14:11 | NUR ---
SPEECH THERAPIST UNABLE TO PERFORM BEDSIDE SPEECH EVAL PATIENT IS NOT ABLE TO FOLLOW COMMANDS. PT WILL BE UNABLE TO PERFORM MODIFIED BARIUM SWALLOW STUDY FOR THE SAME. DR. CASTAÑEDA NOTIFIED WITH NO NEW ORDERS. PT HAS BEEN RESTING WITH EYES CLOSED IN NAD SINCE START OF SHIFT. PT DOES GRIMACE AND MUMBLE WHEN SPOKEN TO OR REPOSITIONED. PT HAS NOT OPENED EYES OR FOLLOWED ANY COMMANDS FOR THIS RN.
--- NOTE | 2019-08-03 14:13 | Speech Therapy Progress Note ---
Therapy Progress Note ST followed up per physician's order for Bedside Dysphagia Evaluation. Patient continues to be non responsive to verbal and tactile cues. Patient will be on hold for ST services until Tuesday due to no ST available over the weekend. ASA FERNANDES Aug 03, 2019 14:13
--- NOTE | 2019-08-03 15:47 | NUR ---
SPOKE WITH MEDICAL RECORDS AT [facility] AND NO CARDIAC RECORDS TO SEND ME. THEY DID STATE THAT MOST RECENT HOSPITALIZATION WAS AT [facility]. PER DAUGHTER, YUVAL, PT SEEING CARDIOLOGY IN [place]. NO FAMILY AT BEDSIDE TO SIGN CONSENT. WILL LEAVE ONE IN ROOM FOR WHEN THEY ARRIVE.
--- NOTE | 2019-08-03 16:17 | NUR ---
CM/ERI visited with the patient for social work consult. The patient was sleeping when this SS came to visit. GERRI/ERI talked to the patients nurse who stated the patients daughter Georgette would be the one to call. GERRI/SS called Georgette and she stated that she would like the patient to go skilled back to [facility]. She was a verbal advocate for the patient and what she wants for the patient. Will continue to follow.
[2019-08-03] MEDS: dilTIAZem DRIP PRE-MIX 125 ML IV SCH (17:07)
[2019-08-04] VITALS (25 sets, daily range): BP systolic 93–146; BP diastolic 58–94
[2019-08-04] MEDS: PIPERACILLIN/TAZO 4.5 GM/NS 100 ML IV SCH ×6 (01:07→16:22)
[2019-08-04] MEDS: RT-ALBUTEROL/IPRATROPIUM 3 ML (DUONEB) VIAL INH SCH ×6 (03:05→23:37)
[2019-08-04 04:07] LABS: BASOPHILS % (AUTO) 0 % (0-10); EOSINOPHILS % (AUTO) 0 % (0-10); HEMATOCRIT 35 % (40-54); HEMOGLOBIN 11.5 G/DL (13.3-17.7); LYMPHOCYTES # (AUTO) 0.3 X 10^3 (1.0-4.0); LYMPHOCYTES % (AUTO) 3 % (12-44); MEAN CORPUSCULAR HEMOGLOBIN 30 PG (25-34); MEAN CORPUSCULAR HGB CONC 33 G/DL (32-36); MEAN CORPUSCULAR VOLUME 92 FL (80-99); MEAN PLATELET VOLUME 9.6 FL (7.4-10.4); MONOCYTES # (AUTO) 0.3 X 10^3 (0.0-1.0); MONOCYTES % (AUTO) 3 % (0-12); NEUTROPHILS # (AUTO) 9.7 X 10^3 (1.8-7.8); NEUTROPHILS % (AUTO) 94 % (42-75); PLATELET COUNT 98 10^3/uL (130-400); RED CELL DISTRIBUTION WIDTH 14.1 % (10.0-14.5); WHITE BLOOD COUNT 10.3 10^3/uL (4.3-11.0)
[2019-08-04 04:20] LABS: BUN/CREATININE RATIO 21; CALCIUM 7.7 MG/DL (8.5-10.1); CARBON DIOXIDE 25 MMOL/L (21-32); CHLORIDE 105 MMOL/L (98-107); CREATININE SERUM 0.97 MG/DL (0.60-1.30); GFR ESTIMATED > 60; GLUCOSE 157 MG/DL (70-105); MAGNESIUM 1.7 MG/DL (1.6-2.4); PHOSPHORUS 1.8 MG/DL (2.3-4.7); SODIUM 138 MMOL/L (135-145)
[2019-08-04] MEDS: VASOPRESSIN INJECTION 20 UNIT in NORMAL SALINE 100 ML IV SCH ×3 (04:56→19:39)
[2019-08-04] MEDS: NOREPINEPHRINE 4 MG/250 ML 250 ML IV SCH ×2 (04:56→14:59)
[2019-08-04] MEDS: KCL 20 MEQ TAB (K-DUR) PO SCH (04:58)
[2019-08-04] MEDS: MAGNESIUM 1 GM/100 ML IVPB 100 ML IV SCH ×3 (04:58→05:56)
[2019-08-04] MEDS: POTASSIUM CL 10MEQ/50ML IVPB 50 ML IV SCH ×6 (04:58→08:58)
[2019-08-04] MEDS: LACTATED RINGERS 1,000 ML IV SCH (05:00)
[2019-08-04] MEDS: methylPREDNISolone 40 MG/ML (Solu-MEDROL) VIAL IV SCH ×3 (05:04→17:39)
[2019-08-04] MEDS: ENOXAPARIN 40 MG/0.4 ML (LOVENOX) SYR SC SCH (05:04)
[2019-08-04] MEDS: dilTIAZem DRIP PRE-MIX 125 ML IV SCH ×2 (06:55→19:39)
--- NOTE | 2019-08-04 07:28 | Diagnostic Imaging Report ---
INDICATION: Septic shock, UTI, pneumonia. Comparison made with prior examination 08/03/2019. FINDINGS: Heart size is stable. Minimal venous congestion. No pleural effusion, pneumothorax or pneumonia. IMPRESSION: Minimal venous congestion otherwise unremarkable. Dictated by: Dictated on workstation # [id number]
--- NOTE | 2019-08-04 08:21 | Cardiology Progress Note ---
Subjective Date Seen by Provider: Aug 04, 2019 Time Seen by Provider: 08:19 Subjective/Events-last exam Patient is laying down in bed, awake, moving his extremities, not following commands or responding to any questions Review of Systems General: Other (Unable to provide review of systems) Focused Exam Lactate Level 08/02/19 12:02: Lactic Acid Level 3.76*H 08/02/19 14:45: Lactic Acid Level 2.82*H 08/02/19 16:33: Lactic Acid Level 2.00 Objective-Cardiology Exam Last Set of Vital Signs Vital Signs 08/04/19 08/04/19 08/04/19 04:28 06:00 06:20 Temp 37.1 Pulse 107 Resp 20 B/P (MAP) 117/73 (88) Pulse Ox 98 O2 Delivery Nasal Cannula O2 Flow Rate 1.00 Capillary Refill : Less Than 3 Seconds I&O Intake and Output 08/04/19 00:00 Intake Total 1805 ml Output Total 2625 ml Balance -820 ml Intake Oral 0 ml IV Total 1805 ml Output Urine Total 2625 ml General: Other (Doesn't follow commands) HEENT: Atraumatic Neck: Supple Lungs: Other (Bilateral rhonchi) Heart: Normal S1, Normal S2, Other (Atrial fibrillation) Abdomen: Normal Bowel Sounds Extremities: No Clubbing, No Cyanosis Skin: No Rashes Neuro: Other (Doesn't respond to questions) Psych/Mental Status: Other (Doesn't respond to questions) Results Lab Laboratory Tests 08/04/19 03:35 A/P-Cardiology Admission Diagnosis Sepsis Septic shock Atrial fibrillation Tachycardia Assessment/Plan Sepsis, improving, receiving IV antibiotics, managed by primary care team. Chronic atrial fibrillation, rate better controlled on Cardizem drip. I am not sure that he will tolerate oral medication Congestive heart failure, severe cardiomyopathy ejection fraction 20-25 percent, probably ischemic in nature, compensated at this time, I will decrease IV fluid, monitor closely Coronary artery disease, history of multiple stents in the past. Unable to provide a history. Dementia, unable to provide history. History of head trauma with multiple falls History of coronary artery disease Clinical Quality Measures DVT/VTE Risk/Contraindication: Risk Factor Score Per Nursin RFS Level Per Nursing on Admit: 4+=Very High FELIX NESBITT MD Aug 04, 2019 08:21
[2019-08-04] MEDS: PANTOPRAZOLE 40 MG (PROTONIX) VIAL IV SCH (08:59)
[2019-08-04] MEDS ORDERED: TROUGH ORDER-PHARMACY XX NR (10:30)
--- NOTE | 2019-08-04 10:37 | Progress Note - Hospitalist ---
Subjective HPI/CC On Admission Date Seen by Provider: Aug 04, 2019 Time Seen by Provider: 09:40 CC: Altered mental status HPI: [facility] 82[facility] service due to severe dementia who [facility] with altered mental status found to have septic shock due to UTI. Pt is officially a DNR and family was updated. Dr. Lyons was consulted, IV fluid resuscitation was initiated along with broad spectrum antibiotics. Pt is non sonya al and appears to be at the end stage of his life. Subjective/Events-last exam Patient remains obtunded but opens his eyes to stimulus. He continues in atrial fibrillation. He is unable to swallow and gag reflex is intact and he vomits with stimuli. Has not passed his dysphagia test Review of Systems General: Other (Unable to obtain because of dementia) Focused Exam Lactate Level 08/02/19 12:02: Lactic Acid Level 3.76*H 08/02/19 14:45: Lactic Acid Level 2.82*H 08/02/19 16:33: Lactic Acid Level 2.00 Objective Exam Vital Signs Vital Signs Date Time Temp Pulse Resp B/P (MAP) Pulse Ox O2 Delivery O2 Flow Rate FiO2 08/04/19 09:34 97 Nasal Cannula 1.50 08/04/19 08:00 123 22 122/67 (85) 08/04/19 04:28 37.1 Capillary Refill : Less Than 3 Seconds General Appearance: Chronically ill HEENT: Other (Dry oral mucosa) Neck: Limited Range of Motion Respiratory: Crackles, Rales, Rhonci Cardiovascular: Irregularly Irregular Gastrointestinal: Soft, Distended Rectal: Deferred Extremity: Pedal Edema Neurologic/Psychiatric: Other (Demented) Results/Procedures Lab Laboratory Tests 08/04/19 03:35 Patient resulted labs reviewed. Imaging: Reviewed Imaging Report Assessment/Plan Assessment and Plan Assess & Plan/Chief Complaint Sepsis-on Vanco and Zosyn-day 3 Urinary tract infection-culture pending Hematuria-presumed secondary to UTI Proteinuria Leukocytosis Lactic acidosis-resolved Acute kidney failure-secondary to dehydration improved today Dementia-severe patient is a DO NOT RESUSCITATE Hx of falls-currently nonambulatory Coronary artery disease with stent placement in the past Atrial fibrillation-chronic Hx of stroke Glaucoma per records Hypertension per records-currently hypotensive Hypomagnesemia replace Currently receiving antibiotics and physical therapy prognosis remains very guarded Clinical Quality Measures DVT/VTE Risk/Contraindication: Risk Factor Score Per Nursin RFS Level Per Nursing on Admit: 4+=Very High PAL PHILLIPS MD Aug 04, 2019 10:36
--- NOTE | 2019-08-04 11:04 | Occ Therapy Progress Note ---
Therapy Progress Note OT orders received and chart reviewed. OT attempted to evaluate pt on this date. Pt opened eyes to stimuli but unable to follow verbal/tactile cues at this time. Pt is currently unable to participate in skilled OT services due to being unable to follow direction. OT will continue to follow pt and eval when pt is more medically stable and able to participate in skilled therapy. 1, visit 10:50 ASHLEY GARCIA OT Aug 04, 2019 11:04
--- NOTE | 2019-08-04 12:30 | Physical Therapy Evaluation ---
PT Evaluation-General Medical Diagnosis Admission Date Aug 02, 2019 at 09:47 Medical Diagnosis: UTI with septic shock Onset Date: Aug 02, 2019 Therapy Diagnosis Therapy Diagnosis: weakness Height/Weight Height (Feet): 5 Height (Inches): 7.00 Weight (Pounds): 173 Weight (Ounces): 6.0 Precautions Precautions/Isolations: Aspiration, Fall Prevention, Standard Precautions Weight Bear Status Right Lower Extremity: Right Weight Bearing/Tolerated Left Lower Extremity: Left Weight Bearing/Tolerated Referral Physician: Livia Reason for Referral: Evaluation/Treatment Medical History Pertinent Medical History: Atrial Fib, CAD, Dementia, HTN, [place], TBI Additional Medical History hx of TBI; severe dementia Current History Pt admitted to hospital with UTI with septic shock. Social History Home: Long-Term Nursing reports pt is total assist at [place] with assist of 2 for all transfers. Prior Prior Level of Function SCALE: Activities may be completed with or without assistive devices. 1-Rdmrywxtrw-ewrcxuy completes the activity by him/herself with no assistance from a helper. 5-Set-up or Clean-up Assistance-helper sets up or cleans up; patient completes activity. [place] assists only prior to or following the activity. 4-Supervision or Touching Assistance-helper provides verbal cues and/or touching/steadying and/or contact guard assistance as patient completes activity. Assistance may be provided throughout the activity or intermittently. 3-Partial/Moderate Assistance-helper does LESS THAN HALF the effort. [place] lifts, holds or supports trunk or limbs, but provides less than half the effort. 2-Substantial/Maximal Assistance-helper does MORE THAN HALF the effort. [place] lifts or holds trunk or limbs and provides more than half the effort. 6-Lsidpcexv-kcptpj does ALL the effort. Patient does none of the effort to complete the activity. Or, the assistance of 2 or more helpers is required for the patient to complete the activity. If activity was not attempted, code reason: 7-Patient Refused. 9-Not Applicable-not attempted and the patient did not perform the activity before the current illness, exacerbation or injury. 10-Not Attempted due to Environmental Limitations-(lack of equipment, weather restraints, etc.). 88-Not Attempted due to Medical Conditions or Safety Concerns. Nurse reports pt is from [facility] is total assist; assist of 2 for transfers and wc bound. PT Evaluation-Current Subjective No verbalizations. Eyes open but does not make eye contact. Objective Patient Orientation: Unable to Assess ROM/Strength ROM Lower Extremities resistant to PROM Strength Lower Extremities unable to assess Integumentary/Posture Bowel Incontinence: Yes Bladder Incontinence: Moya Cath Neuromuscular (Tone, Coordination, Reflexes) appear impaired. Transfers Pt is total assist for all mobility; unable to follow cues to effectively participate with skilled activity this date. Attempted to sit pt EOB but he became retropulsive and stiff making it unsafe to sit up. Pt was partially up so was returned to bed. Positioned to relieve areas of pressure and heels elevated. pt appeared comfortable. Gait Does the Patient Walk?: No and Walking Goal NOT indicated Assessment/Needs Pt unable to effectively participate in skilled PT this visit. Resistant to movement and retropulsive with attempts to sit up. Unable to follow cues. Seems a bit agitated with attempts to move patient. Will follow to assess if his ability to participate improves. Rehab Potential: Poor PT Nurse Coordinator Goals Retirement Goals PT Retirement Goals Time Frame: Aug 10, 2019 Sit to Lying (QC): 2 Lying-Sitting on Side/Bed(QC): 2 Sit to Stand (QC): 2 PT Plan Problem List Problem List: Activity Tolerance, Functional Strength, Safety, Transfer, Bed Mobility Treatment/Plan Treatment Plan: Continue Plan of Care Treatment Duration: Aug 10, 2019 Frequency: 5 times per week Patient and/or Family Agrees t: Yes Time/GCodes Time In: 1005 Time Out: 1015 Total Billed Treatment Time: 10 Total Billed Treatment visit EVM 10 ALFONZO RAGLAND PT Aug 04, 2019 12:30
[2019-08-04] MEDS: VANCOMYCIN 1 GM/NS 250 ML IVPB IV SCH ×2 (12:34)
--- NOTE | 2019-08-04 15:01 | NUR ---
PT FAMILY IN ROOM WITH THE FOLLOWING CONCERNS: PT HAS BEEN LAYING IN THE SAME POSITION SINCE SHE LEFT LAST NIGHT, PT MOUTH DRY, PT LIKES ICE CHIPS AND APPLESAUCE AND SHOULD BE GIVEN THOSE ITEMS, PT HAS SORE ON INSIDE OF MOUTH, PT NEEDS SHAVED. THIS RN EDUCATED DAUGHTER AND ADDRESSED THE FOLLOWING CONCERNS: PATIENT IS BEING TURNED EVERY TWO HOURS AND THAT PT IS UNABLE TO TOLERATE BEING ON RIGHT SIDE DUE TO BECOMING TACHYCARDIC; PT IS RECEIVING ORAL CARE WITH MOUTH MOISTURIZER, AND MINIMAL AMOUNT OF WATER DUE TO ASPIRATION RISK; PT HAS FAILED MULTIPLE BEDSIDE SWALLOW STUDIES AND IS UNABLE TO TOLERATE FOOD/LIQUID BY MOUTH; PT HAS AUDIBLE GURGLES AND RATTLES AND HAS BEEN SUCTIONED MULTIPLE TIMES; PT IS ON DEPENDENT ON OXYGEN AND SHAVING IS NOT AN OPTION DUE TO THE COMBINATION OF OXYGEN AND ELECTRIC RAZOR BEING COMBUSTIBLE. PT DAUGHTER STATED THAT EVEN IF PT WAS ON HOSPICE, PT WOULD RECEIVE ICE CHIPS AND APPLESAUCE FOR COMFORT AND THAT SHE, WELL ANY OTHER FAMILY MEMBERS WOULD BE ADMINISTERING ICE CHIPS AND APPLESAUCE WHEN VISITING. THIS RN AGAIN EDUCATED THAT PT COULD BE ASPIRATING/CHOKING EACH TIME THOSE ITEMS ARE GIVEN AND THAT THIS RN REQUESTS ITEMS NOT BE GIVEN. THIS RN HAS CONTACTED DR. PHILLIPS WITH PT DAUGHTER CONCERNS.
--- NOTE | 2019-08-04 15:18 | NUR ---
PT DAUGHTER HAS STATED SHE DOES NOT WANT ANY SUCTIONING, DEEP SUCTION OR MOUTH SUCTION, BEING DONE. PT DAUGHTER ALSO STATED SHE DOES NOT WANT ANY PEG TUBES OR NG TUBES.
[2019-08-04] MEDS: ACETAMINOPHEN 325 MG SUPP (TYLENOL) PR PRN (16:11)
[2019-08-05] VITALS (25 sets, daily range): BP systolic 83–145; BP diastolic 53–112
[2019-08-05] MEDS: methylPREDNISolone 40 MG/ML (Solu-MEDROL) VIAL IV SCH ×4 (00:08→17:29)
[2019-08-05] MEDS: VANCOMYCIN 1 GM/NS 250 ML IVPB IV SCH ×2 (00:09)
[2019-08-05] MEDS: PIPERACILLIN/TAZO 4.5 GM/NS 100 ML IV SCH ×4 (00:09→09:21)
[2019-08-05] MEDS: RT-ALBUTEROL/IPRATROPIUM 3 ML (DUONEB) VIAL INH SCH ×6 (02:19→22:23)
[2019-08-05] MEDS: VASOPRESSIN INJECTION 20 UNIT in NORMAL SALINE 100 ML IV SCH ×3 (02:33→22:52)
[2019-08-05] MEDS: NOREPINEPHRINE 4 MG/250 ML 250 ML IV SCH ×2 (02:33→15:40)
[2019-08-05 04:27] LABS: BASOPHILS % (AUTO) 0 % (0-10); EOSINOPHILS % (AUTO) 0 % (0-10); HEMATOCRIT 34 % (40-54); HEMOGLOBIN 11.1 G/DL (13.3-17.7); LYMPHOCYTES # (AUTO) 0.3 X 10^3 (1.0-4.0); LYMPHOCYTES % (AUTO) 3 % (12-44); MEAN CORPUSCULAR HGB CONC 33 G/DL (32-36); MEAN CORPUSCULAR VOLUME 92 FL (80-99); MEAN PLATELET VOLUME 9.4 FL (7.4-10.4); MONOCYTES # (AUTO) 0.4 X 10^3 (0.0-1.0); MONOCYTES % (AUTO) 4 % (0-12); NEUTROPHILS # (AUTO) 9.3 X 10^3 (1.8-7.8); NEUTROPHILS % (AUTO) 93 % (42-75); PLATELET COUNT 104 10^3/uL (130-400); RED CELL DISTRIBUTION WIDTH 14.4 % (10.0-14.5)
[2019-08-05 05:24] LABS: BUN/CREATININE RATIO 22; CALCIUM 7.6 MG/DL (8.5-10.1); CARBON DIOXIDE 24 MMOL/L (21-32); CHLORIDE 105 MMOL/L (98-107); CREATININE SERUM 0.79 MG/DL (0.60-1.30); GFR ESTIMATED > 60; GLUCOSE 126 MG/DL (70-105); MAGNESIUM 1.9 MG/DL (1.6-2.4); PHOSPHORUS 1.8 MG/DL (2.3-4.7); POTASSIUM 3.4 MMOL/L (3.6-5.0); SODIUM 137 MMOL/L (135-145)
[2019-08-05 05:39] LABS: MEAN CORPUSCULAR HEMOGLOBIN 30 PG (25-34)
[2019-08-05] MEDS: POTASSIUM CL 10MEQ/50ML IVPB 50 ML IV SCH ×4 (05:40→07:00)
[2019-08-05] MEDS: ENOXAPARIN 40 MG/0.4 ML (LOVENOX) SYR SC SCH (05:40)
[2019-08-05] MEDS: MAGNESIUM 1 GM/100 ML IVPB 100 ML IV SCH (05:41)
[2019-08-05] MEDS: KCL 20 MEQ TAB (K-DUR) PO SCH (05:41)
--- NOTE | 2019-08-05 07:23 | Diagnostic Imaging Report ---
INDICATION: Septic shock. UTI. Pneumonia. COMPARISON: 08/04/2019 FINDINGS: There is cardiomegaly. There is some venous congestion. There is no pleural effusion or pneumothorax. The mediastinum is unremarkable. PICC line is in satisfactory position. IMPRESSION: 1. Cardiomegaly. 2. Mild central pulmonary venous congestion. Dictated by: Dictated on workstation # [id number]
--- NOTE | 2019-08-05 07:32 | Cardiology Progress Note ---
Subjective Date Seen by Provider: Aug 05, 2019 Time Seen by Provider: 07:29 Subjective/Events-last exam Patient is awake, moving extremities, not following commands or responding to any verbal stimuli Review of Systems General: Other (Unable to provide review of systems) Focused Exam Lactate Level 08/02/19 12:02: Lactic Acid Level 3.76*H 08/02/19 14:45: Lactic Acid Level 2.82*H 08/02/19 16:33: Lactic Acid Level 2.00 Objective-Cardiology Exam Last Set of Vital Signs Vital Signs 08/05/19 06:00 Pulse 111 Resp 20 B/P (MAP) 124/85 (98) Pulse Ox 100 O2 Delivery Nasal Cannula O2 Flow Rate 2.00 Capillary Refill : Less Than 3 Seconds I&O Intake and Output 08/05/19 00:00 Intake Total 2080 ml Output Total 1315 ml Balance 765 ml Intake Oral 0 ml IV Total 2080 ml Output Urine Total 1315 ml General: Alert, Other (Doesn't follow commands) HEENT: Atraumatic Neck: Supple Lungs: Other (Bilateral rhonchi) Heart: Normal S1, Normal S2, Other (Atrial fibrillation) Abdomen: Normal Bowel Sounds Extremities: No Clubbing, No Cyanosis Skin: No Rashes Neuro: Other (Doesn't respond to questions) Psych/Mental Status: Other (Doesn't respond to questions) Results Lab Laboratory Tests 08/04/19 12:35 08/05/19 04:10 A/P-Cardiology Admission Diagnosis Sepsis Septic shock Atrial fibrillation Tachycardia Assessment/Plan Sepsis, UTI, improving, receiving IV antibiotics, managed by primary care team. Chronic atrial fibrillation. So far unable to tolerate oral medication. 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 Unable to provide a history. Dementia, unable to provide history. History of head trauma with multiple falls History of coronary artery disease Clinical Quality Measures DVT/VTE Risk/Contraindication: Risk Factor Score Per Nursin RFS Level Per Nursing on Admit: 4+=Very High FELIX NESBITT MD Aug 05, 2019 07:32
[2019-08-05] MEDS: PANTOPRAZOLE 40 MG (PROTONIX) VIAL IV SCH (09:21)
[2019-08-05] MEDS ORDERED: FUROSEMIDE 40 MG/4 ML INJ (LASIX) IVP ONE (10:15)
--- NOTE | 2019-08-05 11:06 | Progress Note - Hospitalist ---
Subjective HPI/CC On Admission Date Seen by Provider: Aug 05, 2019 Time Seen by Provider: 10:00 CC: Altered mental status HPI: This is an 82yoWM shelter pt known to the hospital service due to severe dementia who presented from the shelter with altered mental status found to have septic shock due to UTI. Pt is officially a DNR and family was updated. Dr. Lyons was consulted, IV fluid resuscitation was initiated along with broad spectrum antibiotics. Pt is non sonya al and appears to be at the end s tage of his life. Subjective/Events-last exam Patient is a little more awake this morning is moving his mouth as if he would like something to eat or drink. Nursing staff again and tried honey thickened liquids with increased rattling but no real choking. Speech therapy is going to work with him tomorrow morning and a modified barium swallow has been ordered. Discussed management with daughter Georgette wishes that he be changed from Cardizem to esmolol for better rate control. Currently he is running 90-100 Review of Systems Neurological: Weakness Focused Exam Lactate Level 08/02/19 12:02: Lactic Acid Level 3.76*H 08/02/19 14:45: Lactic Acid Level 2.82*H 08/02/19 16:33: Lactic Acid Level 2.00 Objective Exam Vital Signs Vital Signs Date Time Temp Pulse Resp B/P (MAP) Pulse Ox O2 Delivery O2 Flow Rate FiO2 08/05/19 10:06 100 Nasal Cannula 2.00 08/05/19 10:00 94 14 117/73 (88) 08/05/19 04:00 37.1 Capillary Refill : Less Than 3 Seconds General Appearance: Chronically ill HEENT: Other (Left lip ulceration of apparently from trauma with bruising there) Neck: Limited Range of Motion Respiratory: Lungs Clear, No Accessory Muscle Use, No Respiratory Distress, Decreased Breath Sounds Cardiovascular: Irregularly Irregular Gastrointestinal: Non Tender, Soft Extremity: No Pedal Edema Results/Procedures Lab Laboratory Tests 08/04/19 12:35 08/05/19 04:10 Patient resulted labs reviewed. Imaging: Reviewed Imaging Report Assessment/Plan Assessment and Plan Assess & Plan/Chief Complaint Sepsis-on Vanco and Zosyn-day 4- urine grows MSSA will change to Ancef Urinary tract infection Hematuria-presumed secondary to UTI Proteinuria Leukocytosis-resolved Lactic acidosis-resolved Acute kidney failure-resolved Dementia-severe patient is a DO NOT RESUSCITATE Hx of falls-currently nonambulatory Coronary artery disease with stent placement in the past Atrial pxvvzybhcqfp-gfodobw-bw will discuss changing antiarrhythmics with Dr. Hodgson per daughter's wishes Hx of stroke Glaucoma per records Hypertension per records-currently hypotensive Hypomagnesemia replace Dysphagia-currently only on when necessary ice chips barium swallow tomorrow Currently receiving antibiotics and physical therapy prognosis remains very guarded Clinical Quality Measures DVT/VTE Risk/Contraindication: Risk Factor Score Per Nursin RFS Level Per Nursing on Admit: 4+=Very High PAL PHILLIPS MD Aug 05, 2019 11:06
[2019-08-05] MEDS: LACTATED RINGERS 1,000 ML IV SCH (12:22)
[2019-08-05] MEDS: ESMOLOL DRIP PREMIX 250 ML IV SCH (12:22)
[2019-08-05] MEDS ORDERED: TROUGH ORDER-PHARMACY XX NR (15:00)
[2019-08-05] MEDS: ceFAZolin INJECTION 1,000 MG in WATER (STERILE) FOR INJECTION 10 ML IV SCH ×2 (17:29→21:59)
[2019-08-05] MEDS: dilTIAZem DRIP PRE-MIX 125 ML IV SCH (21:58)
[2019-08-06] VITALS (26 sets, daily range): BP systolic 85–126; BP diastolic 37–97
[2019-08-06] MEDS: methylPREDNISolone 40 MG/ML (Solu-MEDROL) VIAL IV SCH ×2 (01:09→06:07)
[2019-08-06] MEDS: ESMOLOL DRIP PREMIX 250 ML IV SCH ×2 (01:09→02:41)
[2019-08-06] MEDS: NOREPINEPHRINE 4 MG/250 ML 250 ML IV SCH ×3 (01:09→21:30)
[2019-08-06] MEDS: RT-ALBUTEROL/IPRATROPIUM 3 ML (DUONEB) VIAL INH SCH ×6 (02:18→22:40)
[2019-08-06] MEDS: LACTATED RINGERS 1,000 ML IV SCH ×2 (02:41→08:07)
[2019-08-06 04:02] LABS: BASOPHILS % (AUTO) 0 % (0-10); EOSINOPHILS % (AUTO) 0 % (0-10); HEMATOCRIT 32 % (40-54); HEMOGLOBIN 10.7 G/DL (13.3-17.7); LYMPHOCYTES # (AUTO) 0.3 X 10^3 (1.0-4.0); LYMPHOCYTES % (AUTO) 5 % (12-44); MEAN CORPUSCULAR HEMOGLOBIN 31 PG (25-34); MEAN CORPUSCULAR HGB CONC 33 G/DL (32-36); MEAN CORPUSCULAR VOLUME 92 FL (80-99); MEAN PLATELET VOLUME 9.5 FL (7.4-10.4); MONOCYTES # (AUTO) 0.3 X 10^3 (0.0-1.0); MONOCYTES % (AUTO) 5 % (0-12); NEUTROPHILS # (AUTO) 5.4 X 10^3 (1.8-7.8); NEUTROPHILS % (AUTO) 90 % (42-75); PLATELET COUNT 95 10^3/uL (130-400); RED CELL DISTRIBUTION WIDTH 13.8 % (10.0-14.5)
[2019-08-06 04:38] LABS: BUN/CREATININE RATIO 20; CALCIUM 7.2 MG/DL (8.5-10.1); CARBON DIOXIDE 27 MMOL/L (21-32); CHLORIDE 104 MMOL/L (98-107); CREATININE SERUM 0.82 MG/DL (0.60-1.30); GFR ESTIMATED > 60; GLUCOSE 118 MG/DL (70-105); MAGNESIUM 1.9 MG/DL (1.6-2.4); PHOSPHORUS 1.8 MG/DL (2.3-4.7); POTASSIUM 3.1 MMOL/L (3.6-5.0); SODIUM 139 MMOL/L (135-145)
[2019-08-06 04:49] LABS: LYMPHOCYTES % (MANUAL) 5 %; MONOCYTES % (MANUAL) 4 %; NEUTROPHILS % (MANUAL) 91 %; RBC MORPH NORMAL
--- NOTE | 2019-08-06 05:48 | Pulmonary Progress Note ---
Subjective Time Seen by a Provider: 05:44 Sepsis Event Evaluation Height, Weight, BMI Height: 5'7.00" Weight: 173lbs. 6.0oz. 78.149727in; 23.00 BMI Method:Estimated Exam Exam Vital Signs Date Time Temp Pulse Resp B/P (MAP) Pulse Ox O2 Delivery O2 Flow Rate FiO2 08/06/19 05:00 93 13 87/60 (69) 99 Nasal Cannula 0.50 08/06/19 04:06 36.7 08/06/19 04:00 97 Nasal Cannula 0.50 08/06/19 04:00 105 13 90/63 (72) 99 Nasal Cannula 0.50 08/06/19 03:00 101 14 108/97 (101) 99 Nasal Cannula 0.50 08/06/19 02:41 99 106/60 08/06/19 02:31 84 13 106/60 (75) 99 Nasal Cannula 0.50 08/06/19 02:18 100 Nasal Cannula 0.50 08/06/19 02:00 102 13 102/75 (84) 99 Nasal Cannula 1.00 08/06/19 01:00 93 10 122/81 (95) 100 Nasal Cannula 1.00 08/06/19 01:00 93 08/06/19 00:00 36.4 08/06/19 00:00 96 13 85/56 (66) 99 Nasal Cannula 1.00 08/06/19 00:00 97 Nasal Cannula 2.00 08/05/19 23:00 97 14 89/55 (66) 98 Nasal Cannula 1.00 08/05/19 22:23 97 Nasal Cannula 1.00 08/05/19 22:00 93 21 105/70 (82) 98 Nasal Cannula 1.00 08/05/19 21:00 92 17 90/73 (79) 97 Nasal Cannula 1.00 08/05/19 20:00 98 111/94 (100) 99 Nasal Cannula 1.00 08/05/19 20:00 97 Nasal Cannula 2.00 08/05/19 19:50 37.2 08/05/19 19:45 104 12 107/95 (99) 98 Nasal Cannula 1.00 08/05/19 19:24 100 Nasal Cannula 2.00 08/05/19 19:00 91 08/05/19 19:00 91 15 117/93 (101) 100 Nasal Cannula 2.00 08/05/19 18:00 92 13 122/80 (94) 99 Nasal Cannula 2.00 08/05/19 17:00 90 22 121/107 (112) 100 Nasal Cannula 2.00 08/05/19 16:00 94 25 102/75 (84) 100 Nasal Cannula 2.00 08/05/19 16:00 37.3 08/05/19 16:00 97 Nasal Cannula 2.00 08/05/19 15:00 106 11 125/112 (116) 97 Nasal Cannula 2.00 08/05/19 14:28 100 Nasal Cannula 2.00 08/05/19 14:00 86 26 97/77 (84) 100 Nasal Cannula 2.00 08/05/19 13:00 82 13 83/53 (63) 100 Nasal Cannula 2.00 08/05/19 13:00 87 08/05/19 12:22 93 95/77 08/05/19 12:00 92 7 85/62 (70) 100 Nasal Cannula 2.00 08/05/19 12:00 37.0 08/05/19 12:00 97 Nasal Cannula 2.00 08/05/19 11:00 106 17 94/63 (73) 100 Nasal Cannula 2.00 08/05/19 10:06 100 Nasal Cannula 2.00 08/05/19 10:00 94 14 117/73 (88) 99 Nasal Cannula 2.00 08/05/19 09:00 101 10 110/65 (80) 99 Nasal Cannula 2.00 08/05/19 08:00 105 25 145/89 (107) 100 Nasal Cannula 2.00 08/05/19 08:00 97 Nasal Cannula 2.00 08/05/19 07:32 98 Nasal Cannula 2.00 08/05/19 07:00 98 15 129/101 (110) 100 Nasal Cannula 2.00 08/05/19 07:00 106 08/05/19 06:00 111 20 124/85 (98) 100 Nasal Cannula 2.00 I & O 08/06/19 07:00 Intake Total 595 ml Output Total 2725 ml Balance -2130 ml Height & Weight Height: 5'7.00" Weight: 173lbs. 6.0oz. 78.434419sn; 23.00 BMI Method:Estimated General Appearance: Chronically ill HEENT: Other (Left lip ulceration of apparently from trauma with bruising there) Neck: Limited Range of Motion Respiratory: Lungs Clear, No Accessory Muscle Use, No Respiratory Distress, Decreased Breath Sounds Cardiovascular: Irregularly Irregular Capillary Refill: Less Than 3 Seconds Extremity: No Pedal Edema Neurologic/Psychiatric: Other (Demented) Skin: Pallor Results Lab Laboratory Tests 08/04/19 12:35 08/05/19 04:10 08/06/19 03:20 Assessment/Plan Assessment/Plan UTI with MSSA -Continue Ancef Pulmonary edema -Monitor Thrombocytopenia -Monitor ARF -IVF -Monitor Atelectasis -Monitor RADHA CASTAÑEDA DO Aug 06, 2019 05:48
[2019-08-06] MEDS ORDERED: POTASSIUM PHOSPHATE INJ 30 MM in NS (IVPB) 250 ML IV ONE (06:00)
[2019-08-06] MEDS: ceFAZolin INJECTION 1,000 MG in WATER (STERILE) FOR INJECTION 10 ML IV SCH ×3 (06:09→21:31)
[2019-08-06] MEDS: ENOXAPARIN 40 MG/0.4 ML (LOVENOX) SYR SC SCH (06:09)
[2019-08-06] MEDS: KCL 20 MEQ TAB (K-DUR) PO SCH (06:10)
[2019-08-06] MEDS: POTASSIUM CL 10MEQ/50ML IVPB 50 ML IV SCH ×4 (06:10→11:00)
[2019-08-06] MEDS: MAGNESIUM 1 GM/100 ML IVPB 100 ML IV SCH (06:10)
[2019-08-06] MEDS: VASOPRESSIN INJECTION 20 UNIT in NORMAL SALINE 100 ML IV SCH ×2 (07:06→15:11)
--- NOTE | 2019-08-06 07:57 | Cardiology Progress Note ---
Subjective Date Seen by Provider: Aug 06, 2019 Time Seen by Provider: 07:55 Subjective/Events-last exam Patient is laying down in bed, awake, not responding to any question. Review of Systems General: Other (Unable to provide review of systems) Objective-Cardiology Exam Last Set of Vital Signs Vital Signs 08/06/19 08/06/19 08/06/19 05:15 06:00 07:29 Temp 36.3 Pulse 92 Resp 13 B/P (MAP) 112/68 (83) Pulse Ox 100 O2 Delivery Nasal Cannula O2 Flow Rate 0.50 Capillary Refill : Less Than 3 Seconds I&O Intake and Output 08/06/19 00:00 Intake Total 605 ml Output Total 3050 ml Balance -2445 ml Intake Oral 0 ml IV Total 605 ml Output Urine Total 3050 ml General: Alert, Other (Doesn't follow commands) HEENT: Atraumatic Neck: Supple Lungs: Normal Air Movement, Other (Bilateral rhonchi) Heart: Normal S1, Normal S2, Other (Atrial fibrillation) Abdomen: Normal Bowel Sounds Extremities: No Clubbing, No Cyanosis Skin: No Rashes Neuro: Other (Doesn't respond to questions) Psych/Mental Status: Other (Doesn't respond to questions) Results Lab Laboratory Tests 08/06/19 03:20 A/P-Cardiology Admission Diagnosis Sepsis Septic shock Atrial fibrillation Tachycardia Assessment/Plan Sepsis, UTI, improving, receiving IV antibiotics, managed by primary care team. Chronic atrial fibrillation. So far unable to tolerate oral medication, rate is controlled on Esmolol drip, probably will need a feeding tube to receive his oral medication Aspiration, unable to tolerate oral diet. May need feeding tube. 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 Unable to provide a history. Advanced Dementia History of head trauma with multiple falls History of coronary artery disease Clinical Quality Measures DVT/VTE Risk/Contraindication: Risk Factor Score Per Nursin RFS Level Per Nursing on Admit: 4+=Very High FELIX NESBITT MD Aug 06, 2019 07:57
[2019-08-06] MEDS: PANTOPRAZOLE 40 MG (PROTONIX) VIAL IV SCH (08:08)
--- NOTE | 2019-08-06 08:19 | Diagnostic Imaging Report ---
EXAMINATION: Portable erect AP chest at 03:37 p.m. INDICATION: Septic shock. FINDINGS: As on the prior exam of 08/05/2019, the patient is rotated. Allowing for this technical factor, the heart is enlarged but stable when compared to the prior exam. Also as on the prior exam, the left retrocardiac region is not well penetrated. There could be pneumonia/atelectasis and fluid in this area. The central pulmonary vasculature does not appear to be engorged; however, there may still be an element of mild pulmonary congestion present. There is also now blunting of the right costophrenic angle and this does suggest a small effusion has developed. The mediastinum is not widened. The osseous structures are intact. IMPRESSION: 1. There is still element of mild pulmonary congestion present and a small amount of fluid has developed in the right lung base. 2. The left retrocardiac region is not well penetrated. Additional considerations as above. Dictated by: Dictated on workstation # [id number]
--- NOTE | 2019-08-06 09:04 | ST Dysphagia Evaluation ---
Speech Evaluation-General Medical Diagnosis UTI with septic shock Onset Date: Aug 02, 2019 Therapy Diagnosis Therapy Diagnosis: Oropharyngeal Dysphagia Precautions Precautions: Aspiration Referral Referring Physician: Dr. Lyons Reason for Referral: Evaluation/Treatment Medical History Pertinent Medical History: Atrial Fib, CAD, Dementia, HTN, [place], TBI Reviewed History: Yes Speech PLF/Current-Dysphagia Prior Level of Function Patient received a modified diet level of thickened liquids and pureed foods. Subjective Patient was alert and demonstrated moderate eye contact throughout the evaluation. Patient sat upright in his bed and responded to verbal and tactile cues provided by the clinician which indicated readiness to complete the BDE. Cognitive Status Patient Orientation: Eyes Open, Mumbles, Listless Patient has moderate dementia documented. Oral Motor Skills Dentition: Natural, Tumbled Ability to Follow Directions: Poor Patient was NPO pending BDE. Oral Expression Ability: Severe Impairment Voice Voice Phonatory-Based Quality: Weak Voice Pitch: Moderately Low Voice Loudness: Moderately Soft/Quiet Face Facial Symmetry: Symmetrical Oral-Facial Assessment Oral-Facial Dentition: Normal Labial Seal Description: Weak Smile: Normal Dysphagia Evaluation Consistencies Presented: Honey Thick Liquid, Pureed Delayed mastication and delayed swallow initiation with all consistencies and multiple verbal cues to swallow. Pharyngeal Phase: Reduced Laryngeal Elevation, Delayed Swallow Dietary Recommendations: Pureed Liquid Recommendations: Honey Consistancy Swallowing Precautions: Alternate Liquids/Solids, Double Swallow, Decreased Bolus 1/2 Tsp, Decreased Rate of Oral Intake, Liquids from Spoon, No Straw, Oral Supervision Staff, Small Bites and Sips, Sitting Upright 90 Degrees, Sitting 90 Degrees 30 Post Intake Dysphagia Evaluation Summary The patient is an 84-year-old male who was admitted to the ICU s/p sepsis. Patient was presented with honey thickened liquids via 1/2 tsp spoon 2x's and presented with a severely delayed swallow initiation, however no s/s of penetration or aspiration. Patient was then presented with puree consistency via 1/2 tsp spoon 1x and presented with prolonged mastication and severely delayed swallow initiation. Patient required maximum verbal cues to complete the swallow and presented no s/s of penetration or aspiration. It is recommended that the patient receive a DYSPHAGIA I diet (puree) with honey thickened liquids. Patient is to also receive supervision during all oral intake to ensure rate of oral intake is decreased. Patient is to also utilize compensatory strategies of alternating liquids and solids, small bites and small sips by 1/2 tsp spoon, and sitting upright during and after all oral intake. It is important to note that the patient was receiving ice chips as per weekend nurse report and ST recommends that the patient do NOT receive ice chips as the consistency of ice chips melt into a thin consistency and cannot be managed by the patient and increases his risk of aspiration. Due to patients severe swallow function it is a concern that he may not be able to receive adequate means of hydration/nutrition through oral intake only. It is recommended that alternate means of hydration and nutrition be considered. Barriers to Learning Current medical status and decreased cognitive status Speech-Plan Patient/Family Goals Patient/Family Goals: Patient goals to recieve adequate hydration and nutrition. Patient to return to LTC facility upon hospital discharge. Treatment Plan Speech Therapy Treatment Plan: Discontinue ST Treatment Duration: Aug 06, 2019 Frequency: 1 time per week Estimated Hrs Per Day: .25 hour per day Rehab Potential: Poor Barriers to Learning: Current medical status and cognitive deficits Pt/Family Agrees to Plan: Yes Safety Risks/Education Teaching Recipient: Patient Teaching Methods: Demonstration, Discussion Response to Teaching: Unable to Comprehend, Reinforcement Needed Education Topics Provided: Utilization of compensatory strategies during all oral intake Time Speech Therapy Time In: 08:00 Speech Therapy Time Out: 08:15 Total Billed Time: 15 Billed Treatment Time 1NANCY BETHANIA ST Aug 06, 2019 09:04
--- NOTE | 2019-08-06 09:38 | Speech Therapy Progress Note ---
Therapy Progress Note Patient was evaluated for swallow function at bedside this morning. Patient is not alert and oriented enough to participate in a Modified Barium Swallow Study. Patient did not exhibit overt s/s of aspiration with honey consistency liquids or puree given at 1/2 tsp size. He does exhibit a significant delay in swallow onset. Patient is NOT safe for ice chips due to delayed swallow and melting to a thin consistency which he is not able to control. Refer to BDE for full results. ASA FERNANDES Aug 06, 2019 09:38
--- NOTE | 2019-08-06 10:00 | Physical Therapy Daily Note ---
PT Daily Note-Current Subjective Patient eyes open but unable to communicate. Appearance Patient in bed with call light and bedside table within reach. Mental Status Patient Orientation: Eyes Open Attachments: Oxygen, Moya Catheter, IV Transfers SCALE: Activities may be completed with or without assistive devices. 2-Agxjsucemg-bmxkpuv completes the activity by him/herself with no assistance from a helper. 5-Set-up or Clean-up Assistance-helper sets up or cleans up; patient completes activity. [place] assists only prior to or following the activity. 4-Supervision or Touching Assistance-helper provides verbal cues and/or touching/steadying and/or contact guard assistance as patient completes activity. Assistance may be provided throughout the activity or intermittently. 3-Partial/Moderate Assistance-helper does LESS THAN HALF the effort. [place] lifts, holds or supports trunk or limbs, but provides less than half the effort. 2-Substantial/Maximal Assistance-helper does MORE THAN HALF the effort. [place] lifts or holds trunk or limbs and provides more than half the effort. 0-Ugcvbfxhj-abgkmu does ALL the effort. Patient does none of the effort to complete the activity. Or, the assistance of 2 or more helpers is required for the patient to complete the activity. If activity was not attempted, code reason: 7-Patient Refused. 9-Not Applicable-not attempted and the patient did not perform the activity before the current illness, exacerbation or injury. 10-Not Attempted due to Environmental Limitations-(lack of equipment, weather restraints, etc.). 88-Not Attempted due to Medical Conditions or Safety Concerns. Roll Left & Right (QC): 1 Sit to Lying (QC): 1 Lying to Sitting/Side of Bed(Q: 1 Weight Bearing Right Lower Extremity: Right Weight Bearing/Tolerated Left Lower Extremity: Left Weight Bearing/Tolerated Gait Training Does the Patient Walk?: No and Walking Goal NOT indicated Treatments Bed mobility, sitting endurance. Assessment Patient DEP to get sat to EOB and is retropulsive. Patient DEP to maintain siting EOB, sat for 4 minutes before O2 started to drop to about 83%. Got patient laid back in bed and recovered to around 96%. PT Home Care Assistant Goals Care Home Goals PT Care Home Goals Time Frame: Aug 10, 2019 Sit to Lying (QC): 2 Lying-Sitting on Side/Bed(QC): 2 Sit to Stand (QC): 2 PT Plan Problem List Problem List: Activity Tolerance, Functional Strength, Safety, Balance, Transfer, Bed Mobility, ROM Treatment/Plan Treatment Plan: Continue Plan of Care Treatment Plan: Bed Mobility, Education, Functional Activity Hollie, Functional Strength, Safety, Therapeutic Exercise, Transfers Treatment Duration: Aug 10, 2019 Frequency: 5 times per week Patient and/or Family Agrees t: Yes Time/GCodes Time In: 905 Time Out: 916 Total Billed Treatment Time: 11 Total Billed Treatment 1 visit FA 11 YUVAL WYNNE PT Aug 06, 2019 10:00
--- NOTE | 2019-08-06 11:32 | NUR ---
Pt is a resident at [facility]. Pastoral rapport established with the pt before his illness progressed. He is Christianity and his daily visits him at the residential home. Offered compassionate touch, verbal encouragement, and prayer.
--- NOTE | 2019-08-06 13:33 | NUR ---
CM/SS visited with the patients spouse Bernice who was present in the patients room. She was at bedside feeding the patient what looked like apple sauce dipped in juice. The patients spouse verbalized to this SS that she wanted the patient to go back skilled. CM/SS discussed with the spouse that it is dependant on how he does with therapies and if he meets qualifications. Patients spouse verbalized understanding but is reluctant to this and adamant that going skilled will be the best for patient. Will continue to follow and keep Sapna from [facility] updated.
--- NOTE | 2019-08-06 13:46 | Occupational Therapy Eval ---
OT Evaluation-General/PLF Medical Diagnosis Admission Date Aug 02, 2019 at 09:47 Medical Diagnosis: UTI with septic shock Onset Date: Aug 02, 2019 Therapy Diagnosis Therapy Diagnosis: Decreased ADL skills Height/Weight Height (Feet): 5 Height (Inches): 7.00 Weight (Pounds): 173 Weight (Ounces): 6.0 Precautions Precautions/Isolations: Aspiration, Fall Prevention, Standard Precautions Safety Interventions: Bed Exit Alarm Referral Physician: Livia Referral Reason: Activity Tolerance, Self Care, Evaluation/Treatment, Strengthening/ROM Medical History Pertinent Medical History: Atrial Fib, CAD, Dementia, HTN, NH, TBI Additional Medical History techycardia, a fib, multiple falls with TBI, dementia, CAD Current History admits 08/02 with sepsis/ UTI and severe dementia (transport to [facility] ED via EMS with projectile vomiting, lethargy, and possible sepsis Reviewed History: Yes Social History Home: [facility] ADL-Prior Level of Function SCALE: Activities may be completed with or without assistive devices. 9-Hlmvdlsemc-xtgpbcp completes the activity by him/herself with no assistance from a helper. 5-Set-up or Clean-up Assistance-helper sets up or cleans up; patient completes activity. [place] assists only prior to or following the activity. 4-Supervision or Touching Assistance-helper provides verbal cues and/or touching/steadying and/or contact guard assistance as patient completes activity. Assistance may be provided throughout the activity or intermittently. 3-Partial/Moderate Assistance-helper does LESS THAN HALF the effort. [place] lifts, holds or supports trunk or limbs, but provides less than half the effort. 2-Substantial/Maximal Assistance-helper does MORE THAN HALF the effort. [place] lifts or holds trunk or limbs and provides more than half the effort. 8-Hhtibzaxj-elaueq does ALL the effort. Patient does none of the effort to complete the activity. Or, the assistance of 2 or more helpers is required for the patient to complete the activity. If activity was not attempted, code reason: 7-Patient Refused. 9-Not Applicable-not attempted and the patient did not perform the activity before the current illness, exacerbation or injury. 10-Not Attempted due to Environmental Limitations-(lack of equipment, weather restraints, etc.). 88-Not Attempted due to Medical Conditions or Safety Concerns. 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 bringing mouth sponge to mouth during session. Pt does not follow commands nor verbalize appropriately (mumbles, decreased eye contact). present and discusses hx and present hospitalization Mental Status/Objective Patient Orientation: Unresponsive, Mumbles Current Upper Extremity ROM Decreased: pt resists PROM as states pt requires more movement, pt unable to follow commands for AROM Upper Extremity Coordination Unable to test Upper Extremity Sensation Unable to test Upper Extremity Strength Unable to test ADL-Treatment ADL-Current Per , pt TD in all ADLs. Pt encouraged to take sponge from and sponge mouth with assist, denies stating pt will not be able to. Eating (QC): 2 ( states she has been feeding pt. Pt lays ~50* and is leaning to L side heavily. Pt re-situated with pillows and towel rolls to encourage straight posture, pt's nurse notified of position (OT requires assist pulling pt up in bed, nursing agrees she will assist later as DO enters)) Oral Hygiene (QC): 1 Shower/Bathe Self (QC): 1 Upper Body Dressing (QC): 1 Lower Body Dressing (QC): 1 On/Off Footwear (QC): 1 Toileting Hygiene (QC): 1 Other Treatments Pt seen in bed, present and active through session. Pt unresponsive or not appropriately responsive. Does not follow commands for communication equipment repairer strength testing. laughs when OT asks if pt has any hobbies or routines. Pt completes pool noodling and is pt TD at [facility] for all ADLs. Pt's states she wishes therapy would move pt more, AROM tested- pt unable to follow commands; PROM tested- pt r esists OT. Pt's educated on muscle stimulation techniques to encourage AROM, but warned to not move pt to full range if resistive. Pt's expresses she places towel rolls in pt's hands during resting- pt's educated on encouragement of flexors in hands when tactile stimulation placed in hand; pt's educated on neutral ways to encourage finger extension to decrease risk of contraction. She nods in understanding. Pt's and pt educated on OT role in acute, as pt TD in ADLs pt at [facility]. Pt's nods, DO enters. Nursing notified of pt's slouched position and desire to move toward [facility] for safer feeding positioning. Education OT Patient Education: Correct positioning, Exercise program, Instructions to caregiver, Safety issues Teaching Recipient: Patient, Significant Other Teaching Methods: Demonstration, Discussion Response to Teaching: Verbalize Understanding, Unable to Return Demonstration, Return Demonstration, Unable to Comprehend, Reinforcement Needed OT Alf Goals Alf Goals 1=Demonstrate adherence to instructed precautions during ADL tasks. 2=Patient will verbalize/demonstrate understanding of assistive devices/modifications for ADL. 3=Patient will improve strength/tolerance for activity to enable patient to perform ADL's. OT Education/Plan Problem List/Assessment Assessment: No Skilled OT Needs ID'd Discharge Recommendations Plan/Recommendations: Discharge/Goals Met Therapy Discharge Recommendati: 24 Hour Supervision Treatment Plan/Plan of Care Treatment,Training & Education: Yes Plan of Care: OTHER (eval only) Treatment Duration: Aug 06, 2019 Frequency: 1 time per week (eval only; pt at [facility]) Rehab Potential: Poor Time/GCodes Start Time: 13:20 Stop Time: 13:36 Total Time Billed (hr/min): 16 Billed Treatment Time 1LUIS (16) IZZY VILLA OTR Aug 06, 2019 13:46
--- NOTE | 2019-08-06 15:04 | NUR ---
Telephone order received from to start patient on metoprolol 25mg PO BID and to wean patient off of esmolol.
--- NOTE | 2019-08-06 18:02 | Progress Note - Hospitalist ---
Subjective HPI/CC On Admission Date Seen by Provider: Aug 06, 2019 Time Seen by Provider: 13:30 CC: Altered mental status HPI: This is [facility] 82[facility] known to the hospital service due to severe dementia who [facility] with altered mental status found to have septic shock due to UTI. Pt is officially a DNR and family was updated. Dr. Lyons was consulted, IV fluid resuscitation was initiated along with broad spectrum antibiotics. Pt is non sonya al and appears to be at the end s tage of his life. Subjective/Events-last exam he is noncommunicative. His is at the bedside. All questions were answered to the best of my ability. His daughter was called and updated regarding the current situation. Objective Exam Vital Signs Vital Signs Date Time Temp Pulse Resp B/P (MAP) Pulse Ox O2 Delivery O2 Flow Rate FiO2 08/06/19 16:00 121 20 126/75 (92) 98 Nasal Cannula 0.50 08/06/19 15:36 37.1 Capillary Refill : Less Than 3 Seconds General Appearance: No Apparent Distress, Chronically ill Respiratory: No Accessory Muscle Use, No Respiratory Distress, Crackles Cardiovascular: Irregularly Irregular, Tachycardia Gastrointestinal: Normal Bowel Sounds, Soft Extremity: Normal Inspection, Non Tender, No Pedal Edema Neurologic/Psychiatric: Alert, Aphasia, Disoriented, Other (not following commands) Skin: Normal Color, Warm/Dry Results/Procedures Lab Laboratory Tests 08/06/19 03:20 Patient resulted labs reviewed. Imaging: Reviewed Imaging Report Assessment/Plan Assessment and Plan Assess & Plan/Chief Complaint Urinary tract infection Urine culture revealed MSSA Continue Ancef chronic atrial fibrillation Continue Esmolol Cardiology consulted, appreciate assistance dysphagia speech therapy recommends alternate means of nutrition and hydration Family does not want to pursue a Dobbhoff or PEG tube continue dysphagia diet severe dementia history of stroke Chronic issue, avoid delirium triggers hypokalemia Continue to monitor and replace as needed Coronary artery disease clinically significant, no acute management needs Glaucoma continue eyedrops DVT prophylaxis: Lovenox septic shock, resolved Leukocytosis-resolved Lactic acidosis-resolved Acute kidney failure-resolved hypomagnesemia-resolved Diagnosis/Problems Diagnosis/Problems (1) UTI (urinary tract infection) Status: Acute (2) Dysphagia Status: Acute (3) Septic shock Status: Resolved Resolution Date/Time: 08/06/19 @ 18:03 (4) Atrial fibrillation with RVR Status: Acute (5) Dementia Status: Chronic Clinical Quality Measures DVT/VTE Risk/Contraindication: Risk Factor Score Per Nursin RFS Level Per Nursing on Admit: 4+=Very High SANDY CASE MD Aug 06, 2019 18:02
[2019-08-06] MEDS ORDERED: meTOprolol TARTRATE 25 MG (LOPRESSOR) TABLET PO SCH (21:00)
[2019-08-06] MEDS ORDERED: LATANOPROST 0.005% (XALATAN) OPHTH SOLN 2.5 ML OU SCH (21:00)
[2019-08-06] MEDS: dilTIAZem DRIP PRE-MIX 125 ML IV SCH (21:30)
[2019-08-07] VITALS (13 sets, daily range): BP systolic 96–136; BP diastolic 70–100
[2019-08-07] MEDS: RT-ALBUTEROL/IPRATROPIUM 3 ML (DUONEB) VIAL INH SCH ×4 (02:37→15:31)
[2019-08-07 04:09] LABS: BUN/CREATININE RATIO 22; CALCIUM 7.4 MG/DL (8.5-10.1); CARBON DIOXIDE 26 MMOL/L (21-32); CHLORIDE 107 MMOL/L (98-107); CREATININE SERUM 0.85 MG/DL (0.60-1.30); GFR ESTIMATED > 60; GLUCOSE 86 MG/DL (70-105); MAGNESIUM 1.9 MG/DL (1.6-2.4); PHOSPHORUS 2.6 MG/DL (2.3-4.7); POTASSIUM 3.6 MMOL/L (3.6-5.0); SODIUM 140 MMOL/L (135-145)
[2019-08-07] MEDS: VASOPRESSIN INJECTION 20 UNIT in NORMAL SALINE 100 ML IV SCH (05:54)
[2019-08-07] MEDS: ESMOLOL DRIP PREMIX 250 ML IV SCH (05:54)
[2019-08-07 06:12] LABS: BASOPHILS % (AUTO) 0 % (0-10); EOSINOPHILS % (AUTO) 0 % (0-10); HEMATOCRIT 33 % (40-54); HEMOGLOBIN 10.9 G/DL (13.3-17.7); LYMPHOCYTES # (AUTO) 0.8 X 10^3 (1.0-4.0); LYMPHOCYTES % (AUTO) 10 % (12-44); MEAN CORPUSCULAR HEMOGLOBIN 30 PG (25-34); MEAN CORPUSCULAR HGB CONC 33 G/DL (32-36); MEAN CORPUSCULAR VOLUME 93 FL (80-99); MEAN PLATELET VOLUME 9.3 FL (7.4-10.4); MONOCYTES # (AUTO) 0.7 X 10^3 (0.0-1.0); MONOCYTES % (AUTO) 9 % (0-12); NEUTROPHILS # (AUTO) 6.5 X 10^3 (1.8-7.8); NEUTROPHILS % (AUTO) 81 % (42-75); PLATELET COUNT 97 10^3/uL (130-400); RED CELL DISTRIBUTION WIDTH 14.2 % (10.0-14.5)
[2019-08-07] MEDS: ceFAZolin INJECTION 1,000 MG in WATER (STERILE) FOR INJECTION 10 ML IV SCH (06:59)
[2019-08-07] MEDS: ENOXAPARIN 40 MG/0.4 ML (LOVENOX) SYR SC SCH (06:59)
[2019-08-07] MEDS: KCL 20 MEQ TAB (K-DUR) PO SCH (07:01)
[2019-08-07] MEDS: MAGNESIUM 1 GM/100 ML IVPB 100 ML IV SCH (07:01)
[2019-08-07] MEDS: POTASSIUM CL 10MEQ/50ML IVPB 50 ML IV SCH (07:01)
--- NOTE | 2019-08-07 07:15 | Cardiology Progress Note ---
Subjective Date Seen by Provider: Aug 07, 2019 Time Seen by Provider: 07:13 Subjective/Events-last exam Patient is laying down in bed, awake, not able to answer any questions Review of Systems General: Other (Unable to provide review of systems) Objective-Cardiology Exam Last Set of Vital Signs Vital Signs 08/07/19 08/07/19 08/07/19 08/07/19 02:37 04:00 04:15 06:00 Temp 36.9 Pulse 100 Resp 18 B/P (MAP) 120/92 (101) Pulse Ox 96 O2 Delivery Room Air O2 Flow Rate 0.00 Capillary Refill : Less Than 3 Seconds I&O Intake and Output 08/07/19 00:00 Intake Total 1000 ml Output Total 1325 ml Balance -325 ml Intake Oral 380 ml IV Total 620 ml Output Urine Total 1325 ml General: Alert, Other (Doesn't follow commands) HEENT: Atraumatic Neck: Supple Lungs: Normal Air Movement, Other (Bilateral rhonchi) Heart: Normal S1, Normal S2, Other (Atrial fibrillation) Abdomen: Normal Bowel Sounds Extremities: No Clubbing, No Cyanosis Skin: No Rashes Neuro: Other (Doesn't respond to questions) Psych/Mental Status: Other (Doesn't respond to questions) Results Lab Laboratory Tests 08/07/19 03:30 08/07/19 06:05 A/P-Cardiology Admission Diagnosis Sepsis Septic shock Atrial fibrillation Tachycardia Assessment/Plan Sepsis, UTI, improving, receiving IV antibiotics, managed by primary care team. Chronic atrial fibrillation, tolerating metoprolol, I will increase the dose to 25 mg 3 times a day, add oral anticoagulation to reduce the risk of stroke Aspiration, unable to tolerate oral diet. May need feeding tube. 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 Unable to prov cari a history. Advanced Dementia History of head trauma with multiple falls History of coronary artery disease Clinical Quality Measures DVT/VTE Risk/Contraindication: Risk Factor Score Per Nursin RFS Level Per Nursing on Admit: 4+=Very High FELIX NESBITT MD Aug 07, 2019 07:15
[2019-08-07] MEDS: meTOprolol TARTRATE 25 MG (LOPRESSOR) TABLET PO SCH ×2 (08:02→13:54)
[2019-08-07] MEDS: PANTOPRAZOLE 40 MG (PROTONIX) VIAL IV SCH (08:03)
--- NOTE | 2019-08-07 08:43 | Diagnostic Imaging Report ---
Portable erect AP chest at 301 hours. INDICATION: Respiratory distress. FINDINGS: When compared to the prior exam of 08/06/2019, there has been no significant change. The heart remains enlarged and the left retrocardiac region is still opacified. There is still an element of mild pulmonary congestion present as well as a small right pleural effusion. The mediastinum is not widened. The osseous structures are intact. The left-sided PICC line is unchanged in position. IMPRESSION: Stable chest. There has been no adverse change since the prior exam. Dictated by: Dictated on workstation # [id number]
[2019-08-07] MEDS ORDERED: APIXABAN 5 MG (ELIQUIS) TABLET PO SCH (09:00)
--- NOTE | 2019-08-07 12:24 | Physical Therapy Daily Note ---
PT Daily Note-Current Subjective Patient unable to communicate. Appearance Patient in bed with call light and bedside table within reach. Mental Status Patient Orientation: Non-Verbal/Aphasic Attachments: Moya Catheter, IV Transfers SCALE: Activities may be completed with or without assistive devices. 1-Jsyyxtscpd-fcjefkz completes the activity by him/herself with no assistance from a helper. 5-Set-up or Clean-up Assistance-helper sets up or cleans up; patient completes activity. [place] assists only prior to or following the activity. 4-Supervision or Touching Assistance-helper provides verbal cues and/or harris sara/steadying and/or contact guard assistance as patient completes activity. Assistance may be provided throughout the activity or intermittently. 3-Partial/Moderate Assistance-helper does LESS THAN HALF the effort. [place] lifts, holds or supports trunk or limbs, but provides less than half the effort. 2-Substantial/Maximal Assistance-helper does MORE THAN HALF the effort. [place] lifts or holds trunk or limbs and provides more than half the effort. 0-Wlfwdqmmd-uajbzk does ALL the effort. Patient does none of the effort to complete the activity. Or, the assistance of 2 or more helpers is required for the patient to complete the activity. If activity was not attempted, code reason: 7-Patient Refused. 9-Not Applicable-not attempted and the patient did not perform the activity before the current illness, exacerbation or injury. 10-Not Attempted due to Environmental Limitations-(lack of equipment, weather restraints, etc.). 88-Not Attempted due to Medical Conditions or Safety Concerns. Weight Bearing Right Lower Extremity: Right Weight Bearing/Tolerated Left Lower Extremity: Left Weight Bearing/Tolerated Gait Training Does the Patient Walk?: No and Walking Goal NOT indicated Exercises Supine Ex: Ankle pumps, Heel Slides, Straight leg raise, Hip abd/add Supine Reps: 20 (BLE PROM) Treatments PROM Assessment Current Status: Poor Progress Performed PROM on patient BLE, patient appeared to tolerate well. Patient has increased tone BLE. PT Bullet Slugs Inspector Goals Skilled Nursing Goals PT Bullet Slugs Inspector Goals Time Frame: Aug 10, 2019 Sit to Lying (QC): 2 Lying-Sitting on Side/Bed(QC): 2 Sit to Stand (QC): 2 PT Plan Problem List Problem List: Activity Tolerance, Functional Strength, Safety, Balance, Gait, Transfer, Bed Mobility, ROM Treatment/Plan Treatment Plan: Continue Plan of Care Treatment Plan: Bed Mobility, Education, Functional Activity Hollie, Functional Strength, Safety, Therapeutic Exercise, Transfers Treatment Duration: Aug 10, 2019 Frequency: 5 times per week Patient and/or Family Agrees t: Yes Time/GCodes Time In: 1057 Time Out: 1107 Total Billed Treatment Time: 10 Total Billed Treatment 1 visit EX 10 YUVAL WYNNE PT Aug 07, 2019 12:14
[2019-08-07] MEDS ORDERED: CEPHALEXIN 250 MG/5 ML 100 ML (KEFLEX) SUSP PO SCH ×2 (12:30→13:00)
[2019-08-07] MEDS ORDERED: RELABEL FOR HOME USE MC SCH (12:30)
[2019-08-07] MEDS: LACTATED RINGERS 1,000 ML IV SCH (13:58)
--- NOTE | 2019-08-07 13:58 | NUR ---
epstein catheter removed per physicians orders
[2019-08-07] MEDS ORDERED: CEPH250S PO (14:06)
[2019-08-07] MEDS ORDERED: METO-333 PO ×2 (14:06→14:13)
--- NOTE | 2019-08-07 14:30 | Discharge Summary ---
Discharge Summary Hospital Course Was the Problem List Reviewed?: Yes Problems/Dx: (1) UTI (urinary tract infection) Status: Acute (2) Dysphagia Status: Acute (3) Septic shock Status: Resolved (4) Atrial fibrillation with RVR Status: Resolved (5) Dementia Status: Chronic Hospital Course Date of Admission: Aug 02, 2019 at 09:47 Admission Diagnosis : Septic shock due to urinary tract infection Family Physician/Provider: Pravin Proctor MD Date of Discharge: 08/07/19 Discharge Diagnosis: Septic shock due to urinary tract infection Hospital Course: Azeem Russell is an 84-year-old male with severe dementia who is admitted with septic shock due to urinary tract infection. His infection was found to be due to MSSA. He was initially started on broad-spectrum antibiotics and was then transitioned to Ancef. On discharge he was given a short course of Keflex suspension. His course was complicated by an acute kidney injury which resolved with IV fluid resuscitation. He had a severe lactic acidosis on admission which resolved with IV fluids. He also suffered from atrial fibrillation with rapid ventricular response. This was improved with esmolol and he transition to oral metoprolol which improved his heart rate to the 90s. [facility] will check his vital signs twice daily and will contact Dr. Banegas and if he has consistent heart rate above 100. He was also started on Eliquis for stroke prophylaxis. His course was also complicated by dysphagia. It was recommended that another form of nutrition be given due to his dysphagia and poor intake. This was discussed with the family and they did not want to pursue either a Dobbhoff for a PEG tube placement. They chose to continue feeding him with the knowledge that he may continue to aspirate. He should follow-up with Dr. Melo. Labs and Pending Lab Test: Laboratory Tests 08/07/19 03:30: Sodium Level 140, Potassium Level 3.6, Chloride Level 107, Carbon Dioxide Level 26, Anion Gap 7, Blood Urea Nitrogen 19H, Creatinine 0.85, Estimat Glomerular Filtration Rate > 60, BUN/Creatinine Ratio 22, Glucose Level 86, Calcium Level 7.4L, Phosphorus Level 2.6, Magnesium Level 1.9 08/07/19 06:05: White Blood Count 8.0, Red Blood Count 3.58L, Hemoglobin 10.9L, Hematocrit 33L, Mean Corpuscular Volume 93, Mean Corpuscular Hemoglobin 30, Mean Corpuscular Hemoglobin Concent 33, Red Cell Distribution Width 14.2, Platelet Count 97L, Mean Platelet Volume 9.3, Neutrophils (%) (Auto) 81H, Lymphocytes (%) (Auto) 10L , Monocytes (%) (Auto) 9, Eosinophils (%) (Auto) 0, Basophils (%) (Auto) 0, Neutrophils # (Auto) 6.5, Lymphocytes # (Auto) 0.8L, Monocytes # (Auto) 0.7, Eosinophils # (Auto) 0.0, Basophils # (Auto) 0.0 Microbiology 08/02/19 MRSA Screen - Final, Complete MRSA not isolated 08/02/19 Blood Culture - Preliminary, Resulted No growth 08/02/19 Urine Culture - Final, Complete Staphylococcus aureus Home Meds Active Metoprolol Tartrate 25 Mg Tablet 25 Mg PO TID 90 Days Hold for heart rate < 60. Hold for SBP < 90. Cephalexin 250 Mg/5 Ml Susp.recon 10 Ml PO QID 5 Days Reported Ketoconazole 15 Gm Cream..g. 1 Applic TP DAILY APPLY TO BOTH FEET FOR TINEA Promethazine Suppository (Promethazine HCl) 25 Mg Supp.rect 25 Mg RC Q6H PRN Acetaminophen 650 Mg Supp.rect 650 Mg RC Q4H PRN Albuterol Sulfate 2.5 Mg/3 Ml Vial.neb 2.5 Mg IH Q8H PRN Ondansetron HCl 4 Mg Tablet 4 Mg PO Q6H PRN Xalatan (Latanoprost) 2.5 Ml Drops 1 Drop OU HS Tylenol (Acetaminophen) 325 Mg Tablet 650 Mg PO Q4H PRN TAKES 2 (325 MG) TABLETS Miralax (Polyethylene Glycol 3350) 17 Gm Powd.pack 17 Gm PO BID PRN Assessment/Pt Instructions Take medications as prescribed. Complete her course of antibiotics for urinary tract infection. Continue metoprolol for rate control of atrial fibrillation. Follow up with her primary care physician, Dr. Melo. Discharge Planning: >30 minutes discharge planning Discharge Instructions Discharge Diet: Other Diet (Pured diet with nectar thick liquids) Activity as Tolerated: No (Up with assistance) Consultations Cardiology Discharge Physical Examination Vital Signs Vital Signs Date Time Temp Pulse Resp B/P (MAP) Pulse Ox O2 Delivery O2 Flow Rate FiO2 08/07/19 12:24 94 08/07/19 12:00 96 Room Air 08/07/19 12:00 37.2 08/07/19 08:00 15 100/86 (91) 08/07/19 02:37 0.00 General Appearance: No Apparent Distress, Chronically ill HEENT: Other (Dry mucous membranes) Respiratory: Lungs Clear, Normal Breath Sounds, No Respiratory Distress Cardiovascular: No Edema, No Murmur, Irregularly Irregular Gastrointestinal: Normal Bowel Sounds, Soft Extremity: Normal Inspection, No Pedal Edema Skin: Normal Color, Warm/Dry Neurologic/Psychiatric: Alert, Aphasia, Disoriented Allergies: Coded Allergies: No Known Drug Allergies (Unverified , 05/08/17) Copy Copies To 1: NIKOLAI MELO MD Discharge Summary Date of Admission Aug 02, 2019 at 09:47 Date of Discharge Discharge Date: Aug 07, 2019 Discharge Time: 16:00 Admission Diagnosis Septic shock Consults/Procedures Consulations Cardiology Discharge Diagnosis Septic shock due to urinary tract infection (1) Septic shock Status: Resolved (2) UTI (urinary tract infection) Status: Acute (3) Atrial fibrillation with RVR Status: Resolved (4) Chronic atrial fibrillation Status: Acute (5) Dysphagia Status: Acute (6) CITLALY (acute kidney injury) Status: Resolved (7) Dementia Status: Chronic Clinical Quality Measures DVT/VTE Risk/Contraindication: Risk Factor Score Per Nursin RFS Level Per Nursing on Admit: 4+=Very High SANDY CASE MD Aug 07, 2019 14:25
[2019-08-07] MEDS ORDERED: APIX5TAB PO (14:31)
--- NOTE | 2019-08-07 15:56 | NUR ---
CM/SS finalize discharge planning. Plan: The patient will return to [facility] today at 4 p.m. Finalized discharge orders were faxed to facility. CM/SS called the daughter Georgette to inform her of discharge today and she had questions this SS could not answer. CM/SS gave Dr. Helga Palomino's number to discuss discharge. He called and they agreed on discharge today. The patient does not need a care assessment since he is already a resident of the facility. No other needs at this time.
--- NOTE | 2019-08-07 16:37 | NUR ---
Patients bladder scan showing around 500ml urine and patient has not voided. Epstein catheter reinserted per 's orders, patient is being discharged with epstein catheter and will need to follow up with primary care provider regarding epstein catheter removal. IV removed tip intact, PICC line removed tip intact gauze and tape applied to both sites. [facility] social work manager contacted [facility] for transport. Patient transferred to wheel chair with emily lift by this nurse, joyce MARADIAGA and another NT. Discharge packet printed off and given to transport to give to [facility]. Patient leaving with Transport for [facility] at 1615 via wheel chair. This nurse called Sujata RN at [facility] to give her an update on patient, Sujata notified that patient will need to follow up with physician regarding epstein catheter removal. New medications discussed with Sujata. I gave Sujata the extension to contact me in case she has any further questions. Georgette patients daughter called me for an update on patient, I informed her that patient was discharged with a epstein catheter due to urinary retention. Georgette was asking questions regarding patients medications, I told her what new medications patient was prescribed.
--- NOTE | 2019-08-07 17:16 | Discharge Inst-Skilled Nursing ---
Discharge Inst-Skilled NF Reconcile Patient Problems Problems Reviewed?: Yes Patient Instructions Patient Problems: Severe dementia, debility Consult/Follow Up/Orders Follow Up Appt.: Next [facility] rounds Skilled NF Admit to: [facility] Certification (SNF) I certify that SNF services are required to be given on an inpatient basis because of the above named patient's need for snf care on a continuing basis for the conditions(s) for which he/she was receiving inpatient hospital services prior to his/her transfer to the SNF. 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
--- OUTSIDE RECORDS SUMMARY | 2019-08-08 13:58 | XMS REPORT | Clinical Summary ---
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 If you d o not see the information that you expected, contact Release of Information in [facility] Information Management department at [phone] for further assistan ce in locating additional records.[facility] Allergies No Known Allergies Medications End Date Status Medication Sig Dispensed Refills Start Date Active memantine (NAMENDA) 10 mg Take 1 Tab by 60 Tab 0 tablet mouth twice 6 daily. Active acetaminophen (TYLENOL) Take 2 Tabs 90 Tab 0 325 mg tablet by mouth 6 every 6 hours as needed for Pain. Active metoprolol(#) (LOPRESSOR) Take 0.61 mL 30 mL 0 10 mg/mL by mouth 6 twice daily. Active donepezil (ARICEPT) 10 mg Take 1 Tab by 30 Tab 0 tabletIndications: mouth at 6 Dementia bedtime daily. Indications: Dementia Active polyethylene glycol 3350 Take 1 Packet 36 Each 0 (MIRALAX) 17 g packet by mouth 6 twice daily. Active senna/docusate Take 1 Tab by 60 Tab 0 (SENOKOT-S) 8.6/50 mg mouth twice 6 tablet daily. Active brinzolamide(+) (AZOPT) 1 Apply 1 Drop 15 mL 0 % ophthalmic suspension to both eyes 6 twice daily. Active latanoprost (XALATAN) Apply 1 Drop 2.5 mL 0 12/ 19/201 0.005 % ophthalmic to both eyes 6 solution at bedtime daily. Active melatonin 5 mg Take 1 Tab by 30 Each 0 tabIndications: insomnia mouth at 6 bedtime daily. Indications: insomnia Active citalopram (CELEXA) 20 mg Take 1 Tab by 30 Tab 0 tablet mouth daily. 6 Active traZODone (DESYREL) 50 mg Take 1 Tab by 30 Tab 0 tabletIndications: mouth at 6 insomnia bedtime as needed. Indications: insomnia Active Problems Problem Noted Date Fall 05/22/2016 Atrial fibrillation 05/22/2016 Sleep disturbance 05/22/2016 Dementia with behavioral disturbance 05/21/2016 Chronic anticoagulation 05/20/2016 SAH (subarachnoid hemorrhage) 05/19/2016 Immunizations Name Administration Dates Next Due Pneumococcal Vaccine 05/24/2016 (23-Amanda Adult) Social History Date Tobacco Use Types Packs/Day Years Used Former Smoker Drinks/Week oz/Week Comments Alcohol Use No Sex Assigned at Date Recorded Not on file Industry Job Start Date Occupation Not on file Not on file Not on file Travel End Travel History Travel Start No recent travel history available. 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 Body Mass Index Plan of Treatment Health Maintenance Due Date Last Done Comments MEDICARE ANNUAL WELLNESS 1933 VISIT DTAP/TDAP VACCINES (1 - 01/28/1944 Tdap) PHYSICAL (COMPREHENSIVE) 1951 EXAM SHINGLES RECOMBINANT 1983 VACCINE (1 of 2) PNEUMONIA (PCV13/PPSV23) 05/24/2017 05/24/2016 VACCINES (2 of 2 - PCV13) INFLUENZA VACCINE 01/04/2019 Results Not on filefrom Last 3 Months Insurance Type Payer Benefit Subscriber ID Effective Phone Address Plan / Dates Group Medicare MEDICARE MEDICARE xxxxxxxxxx 1998-P PART A AND resent B Medicare BCBS ROD BCBS xxxxxxxxxxxx [id number] SUPPLEMENT resent [phone] Advance Directives 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 needed
--- OUTSIDE RECORDS SUMMARY | 2019-08-08 13:59 | XMS REPORT ---
Author Author [facility] Organization [facility] Address [address] [address] Care Team Providers Care Night Coordinator Name Role Phone FÁTIMA MONTANA Unavailable TATIANA IRBY APRN Unavailable Unavailable FÁTIMA MONTANA MD Unavailable Unavailable BALDOMERO PUENTE Unavailable Unavailable ANA GARDNER, VIOLETTE Brasher Unavailable Unavailable KATYA BRIONES JR Unavailable Unavailable LUIS ARREDONDO DO Unavailable Unavailable ISRAEL GUAN, NATALIE Mckeon Unavailable Unavailable RAJ GARDNER, JEWEL Mackenzie Unavailable Unavailable FÁTIMA MONTANA PCP BEE BELL Unavailable Unavailable DAWNA STEVENSON Unavailable Unavailable MD Tim MONTANA PCP Allergies Normalized Allergy Reported Date of Reaction(s) Care Provider Facility Allergy Type classification allergen Allergy Onset DA (25 Unclassified No Known Drug 05-19-2016 - no information KATYA BRIONES Not Available sources.) Allergies , (57815) Medications Current Medications Medication Ingredient Drug Dose Dates Status Sig Sig Care Class(es) (Normalized) (Original) Provid er albuterol Albuterol beta2-Adren Active no Albuterol n o 0.83 mg/ml ergic information Sulfate name inhalant Agonist Active 2.5 (no solution (2 RESPIRATORY phone) sources.) (INHALATION) Every 8HRS as needed for Shortness Of Breath no no Albutero no name information inform l (no ation Sulfate phone) Active 2.5 RESPIRAT ORY (INHALAT ION) Every 4HRS as needed for Shortnes s Of Breath apixaban 5 apixaban Factor Xa 08-07-19 Active no Apixaban n o mg oral Inhibitor 20 information Active 5 name tablet (1 ORAL Twice A (no source.) Day 60 30 phone) August 07, 2019 2:31pm cephalexin Cephalexin Cephalospor 08-07-19 Active no Cephale renny no 50 mg/ml in 20 information Active 10 name oral Antibacteri ORAL Four (no suspension al Times Daily phone) (1 source.) 5 5 August 07, 2019 2:06pm ketoconazol Ketoconazol Azole Active no Ketoconazole no e 20 mg/ml e Antifungal information Active 1 name topical TOPICAL (no cream (1 Daily APPLY phone) source.) TO BOTH FEET FOR TINEA ondansetron Ondansetron Serotonin-3 Active no Ondanset rigoberto no 4 mg oral Receptor information Hcl Active 4 name tablet (2 Antagonist ORAL Every 6 (no sources.) Hours as phone) needed for Nausea/Vomit ing-1ST Line promethazin Promethazin Phenothiazi Active no Prometha zine no e e ne information Hcl Active name hydrochlori 25 RECTAL (no de 25 mg Every 6 phone) rectal Hours as suppository needed for (1 source.) Nausea/Vomit ing-2ND Line Completed/Discontinued Medications Medication Ingredient Drug Dose Dates Status Sig Sig Care Class(es) (Normalized) (Original) Provid er aluminum Aluminum no 08-02-19 Complete no Al Hydrox/Mg n o hydroxide Hydroxide / information 20 d information Hydr ox/Simet name 80 mg/ml / Magnesium hicone (no magnesium Hydroxide / Discontinued phone) hydroxide Simethicone 30 ORAL 80 mg/ml / Every 4HRS simethicone as needed 8 mg/ml for oral Indigestion suspension July (2019 sources.) no Atropine no 3.6 % 08-02-19 Complete no Atropine no information Sulfate In information 20 d information Sul fate In name (2 0.9% Nacl 0.9% Nacl (no sources.) Discontinued phone) 4 ORAL Every 4HRS as needed for Excessive Secretions August 02, 2019 3.6 % no no Atropine no name information inform Sulfate (no ation In 0.9% phone) Nacl Active 4 ORAL Every 4HRS as needed for Excessiv e Secretio ns busPIRone busPIRone no 05-16-20 Complete no Buspirone no hydrochlori information 17 d information Hcl name de 5 mg Discontinued (no oral tablet 5 ORAL Twice phone) (2 A Day sources.) May 16, 2017 no Dorzolamide no 08-02-19 Complete no Dorzolamide n o information Hcl/Pf information 20 d information Hcl/Pf name (1 source.) Discontinued (no 1 OPTHALMIC phone) Daily August 02, 2019 12 hr guaiFENesin no 08-02-19 Complete no Guaifenesin n o guaiFENesin information 20 d information Disconti nued name 600 mg 600 ORAL (no extended Every 12 phone) release Hours as oral tablet needed for (2 Congestion sources.) August 02, 2019 haloperidol Haloperidol Typical 05-16-20 Complete take 0.5 Halop eridol no 0.5 mg oral Antipsychot 17 d tablet by Discontinu ed name tablet (2 ic mouth twice 0.25 ORAL (no sources.) daily Twice A Day phone) May 16, 2017 TAKES 1/2 OF A (0.5 MG) TABLET loratadine Loratadine no 08-02-19 Complete no Loratadine no 10 mg oral information 20 d information Discontin ued name tablet (2 10 ORAL (no sources.) Daily phone) August 02, 2019 no LORazepam Benzodiazep 05-16-20 Complete no Lorazepam no information ine 17 d information Discontinued name (2 0.5 ORAL (no sources.) Every 4HRS phone) as needed for Anxiety May 16, 2017 05-16-2017 Completed no Lorazepa no name inform m (no ation Disconti phone) nued 0.5 ORAL Every 4HRS as needed for Anxiety May 16, 2017 morphine Morphine Opioid 08-02-19 Complete take 0.5-1 Morphine no sulfate 20 Agonist 20 d mL by mouth Sulfate nam e mg/ml oral every hour Discontinued (no solution (2 as needed 10-20 ORAL phone) sources.) for pain Every Hour as needed for Pain-Severe August 02, 2019 0.5-1 ML OF A (20MG/1ML) ORAL SOLUTION polymyxin b Polymyxin B Dihydrofola 08-02-19 [place] [address] / te 20 informat information Sulf/Trimeth na me unt/ml / Trimethopri Reductase ion oprim (no trimethopri m Inhibitor Discontinued phone) m 1 mg/ml Antibacteri 1 OPTHALMIC ophthalmic al, Every 3 solution (2 Polymyxin-c Hours sources.) lass July Antibacteri 2019 al ORDERED 05/05/17 FOR A 7 DAY THERAPY sulfamethox Sulfamethox Dihydrofola 05-16-20 Complete no Sul famethoxa no azole 800 azole / te 17 d information zole/Trimeth name mg / Trimethopri Reductase oprim (no trimethopri m Inhibitor Discontinued phone) m 160 mg Antibacteri 1 ORAL Twice oral tablet al, A Day (2 Sulfonamide May sources.) Antimicrobi 2016 al ORDERED 05/07/17 Problems Active Problems Problem Normalized Date of Normalized Normalized Provider Fac ility Classification Problem(s) Problem Problem Problem Sta tus Onset/Resoluti Duration on Acute and Acute kidney Episodic Active MD FÁTIMA Mendoza nsion Via unspecified failure, [address] [facility] renal failure unspecified Hospital (16 sources.) Translations: (00836) [ Acute kidney injury, Acute kidney injury, Acute kidney injury] 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 no inform ation system disorders (7 sources.) Coronary Atheroscleroti Chronic Active FÁTIMA MONTANA , Not Available atherosclerosi c heart (20608) s and other disease of heart disease [place] (20 sources.) coronary artery without angina pectoris Translations: [ PRESENCE OF CORONARY ANGIOPLASTY IMPLANT, OLD MYOCARDIAL INFARCTION, ATHSCL HEART DISEASE OF [place] CORONARY ] Osteoarthritis Bilateral Chronic Active TATIANA IRBY Not A vailable (4 sources.) primary (46992) osteoarthritis of hip Other and Cardiomegaly Chronic Active TATIANA IRBY Not Danica ilable ill-defined (23727) heart disease (4 sources.) Residual Decreased Episodic Active FÁTIMA [facility] [place] [address] [place] unclassified consciousness Hospital (2 sources.) (78667) Other Dysphagia Episodic Active MD FÁTIMA Sauli on Via gastrointestin 97849 [facility] al disorders Hospital (1 source.) (82971) Other Dysphagia, Episodic Active MD FÁTIMA Saul ion Via gastrointestin unspecified 09783 [facility] al disorders Translations: Hospital (9 sources.) [ Dysphagia, (32797) Dysphagia] Residual Encounter for Episodic Active MD FÁTIMA MONTANA [facility] codes; prophylactic 53335 [place] unclassified measures, Hospital (1 source.) unspecified (74586) Translations: [ Encounter for preventive measure, Encounter for preventive measure] Essential Essential Chronic Active KATYA BRIONES Not Avai lable hypertension (primary) , (49630) (27 sources.) hypertension Translations: [ BENIGN HYPERTENSION] Fluid and Fluid Episodic Active MD FÁTIMA Saulio n Via electrolyte overload, 49[address] [facility] disorders (8 unspecified Hospital sources.) Translations: (45731) [ Dehydration] Esophageal Gastro-esophag Chronic Active DAWNA GRAHAM [facility] Via disorders (3 eal reflux [place] sources.) disease Hospital - without [place] esophagitis (97737) Crushing Injury of Episodic Active FÁTIMA MONTANA [facility] injury or kidney [address]89[address] [facility] internal Hospital injury (2 (13593) sources.) Other correction Episodic Active TATIANA IRBY Not Availa ble aftercare (5 (current) use (16648) sources.) of anticoagulants Translations: [ correction current use of anticoagulant therapy, correction current use of anticoagulant therapy] Nausea and Nausea and Episodic Active MD FÁTIMA Nelson cris Via vomiting (1 vomiting 29568 [facility] source.) Hospital (01346) Acute Nontraumatic Chronic Active VIOLETTE PEREZ 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 , (04198) r disease (8 hemorrhage, sources.) unspecified Deficiency and Normocytic Episodic Active FÁTIMA MONTANA As[facility] other anemia anemia 13187 [facility] (2 sources.) Hospital (14909) Occlusion or Occlusion and Chronic Active KATYA Ramos ot Available stenosis of stenosis of , 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 (2 without sources.) mention of cerebral infarction Genitourinary Other abnormal Episodic Active FÁTIMA MONTANA , Not Available symptoms and findings in (31034) ill-defined urine conditions (4 Translations: sources.) [ PERSONAL HISTORY OF URINARY (TRACT) INFE] Administrative Other Episodic Active MD FÁTIMA MONTANA [facility] /social specified 356[address] [facility] admission (1 counseling Hospital source.) Translations: (52225) [ Counseling regarding end of life decision making, Counseling regarding end of life decision making] Unclassified Patient no information Active FÁTIMA jayion Via (4 sources.) encounter [address] [facility] (74474) Other Personal Episodic Active DAWNA GRAHAM [facility] circulatory history of [place] disease (20 transient Hospital - sources.) ischemic [place] attack (TIA), (01339) and cerebral infarction without residual deficits Other Platelet count Episodic Active FÁTIMA Nelson cris Via screening for below 83205 [place] suspected reference Hospital conditions range (70107) (not mental disorders or infectious disease) (2 sources.) Pneumonia Pneumonia Episodic Active DAWNA GRAHAM [facility] Via (except that Translations: [place] caused by [ PNEUMONIA, Hospital - tuberculosis UNSPECIFIED [place] or sexually ORGANISM] (52400) transmitted disease) (5 sources.) Coronary Presence of Episodic Active DAWNA GRAHAM [facility] atherosclerosi coronary [place] s and other angioplasty Hospital - heart disease implant and [place] (3 sources.) graft (34227) Septicemia Sepsis due to Episodic Active DAWNA GRAHAM [facility] Via (except in Staphylococcus [place] labor) (7 aureus Hospital - sources.) Translations: [place] [ Sepsis, (39916) SEPSIS, UNSPECIFIED ORGANISM] Shock (1 Septic shock Episodic Active MD FÁTIMA Mendoza nsion Via source.) [address] [place] [address] ([address]90) Other lower Shortness of Episodic Active DAWNA GRAHAM [facility] respiratory breath [place] disease (3 Hospital - sources.) [place] (31012) Spondylosis; Spondylosis Chronic Active TATIANA IRBY Not A vailable intervertebral without (31788) disc myelopathy or disorders; radiculopathy, other back cervical problems (4 region sources.) Coagulation Thrombocytopen Chronic Active MD FÁTIMA Berkowitz Via and ia, [address] [place] [address] hemorrhagic unspecified Hospital disorders (8 Translations: (55211) sources.) [ Thrombocytopen ia, Thrombocytopen ia] Residual Transient Episodic Active MD FÁTIMA Wade on Via codes; alteration of [address] [place] [address] [facility] awareness Hospital (1 source.) Translations: (78512) [ Decreased level of consciousness, Decreased level of consciousness] Cardiac Unspecified Chronic Active TATIANA IRBY Not Avai lable dysrhythmias atrial (02677) (21 sources.) fibrillation Translations: [ CHRONIC ATRIAL FIBRILLATION, ATRIAL FIBRILLATION, Atrial fibrillation with rapid ventricular response, Chronic atrial fibrillation] NEGATED Unspecified Chronic Active no name no informa tion no glaucoma information (14 sources.) Urinary tract Urinary tract Episodic Active DAWNA GRAHAM [facility] infections (20 infection, [place] sources.) site not Hospital - specified [place] Translations: (26927) [ Urinary tract infection] Past or Other Problems Problem Normalized Date of Normalized Normalized Provider Fac ility Classification Problem(s) Problem Problem Problem Sta tus Onset/Resoluti Duration on NEGATED Anemia, Episodic Completed no name no informatio n no unspecified information (14 sources.) NEGATED Atheroscleroti no information Completed no name no information no c heart information disease of (17 sources.) [place] coronary artery without angina pectoris Translations: [ OLD MYOCARDIAL INFARCTION, PRESENCE OF CORONARY ANGIOPLASTY IMPLANT, ATHSCL HEART DISEASE OF [place] CORONARY ] Calculus of Calculus of Episodic Completed TATIANA IRBY Not Av ailable urinary tract kidney (40533) (4 sources.) NEGATED Do not Episodic Completed no name no informatio n no resuscitate information Translations: (14 sources.) [ SLEEP DISORDER, UNSPECIFIED] Other Dysphagia, Episodic Completed no name no informat ion gastrointestin oropharyngeal al disorders phase (7 sources.) Immunizations Encounter for Episodic Completed TATIANA IRBY No t Available and screening immunization (93072) for infectious disease (4 sources.) External cause Fall (on) no information no information PETER ENE JOANNE Not Available codes: Fall (from) (60971) (12 sources.) unspecified stairs and steps, initial encounter Translations: [ UNSPECIFIED FALL, INITIAL ENCOUNTER] NEGATED History of Episodic Completed no name no informat ion no falling information (14 sources.) Other male Hydrocele, Episodic Completed BALDOMERO Not Availa ble genital unspecified LUIS BOUCHER (22223) disorders (3 sources.) Open wounds of Laceration Episodic Completed TATIANA IRBY Not Available head; neck; without (63550) and trunk (15 foreign body sources.) of scalp, initial encounter Other Long-term Episodic Completed KATYA O'TEGAN Not Avai lable aftercare (2 (current) use , JR (70459) sources.) of anticoagulants Other Long-term Episodic Completed KATYA O'TEGAN Not Avai lable aftercare (2 (current) use , JR (06673) sources.) of other medications NEGATED Other Episodic Completed no name no informatio n no constipation information (14 sources.) External cause Other external no information no information PET ER IRBY Not Available codes: cause status (86503) Unspecified (4 sources.) Other nervous Other symptoms Episodic Completed no name Not Available system and signs (44182) disorders (3 involving sources.) cognitive functions and awareness Other Personal Episodic Completed no name Not Available gastrointestin history of (21135) al disorders other diseases (3 sources.) of the digestive system NEGATED Sepsis due to no information Completed no name no information no Methicillin information susceptible (14 sources.) Staphylococcus aureus Translations: [ SEVERE SEPSIS WITHOUT SEPTIC SHOCK] Abdominal Unilateral Episodic Completed PETER IRBY Not Avail able hernia (7 inguinal (09941) sources.) hernia, without obstruction or gangrene, not specified as recurrent External cause Unspecified no information no information TATIANA IRBY Not Available codes: Place place in (88518) of occurrence unspecified (12 sources.) non-institutio nal (private) residence as the place of occurrence of the external cause Translations: [ BEDROOM IN MCC PLACE] NEGATED Unsteadiness Episodic Completed no name no inform ation no on feet information (14 sources.) Procedures Procedure Normalized Procedure Procedure Result Performer Facility Date 03-05-2019 Assessment of catheter LT RADIAL no name (no phon e) [place] [facility] entry site [facility] (88221) 08-02-2019 Echocardiography no information no name (no phone) [place] [facility] (00702) 08-02-2019 Electrocardiographic no information no name (no suzanne ne) [place] [facility] (69591) 03-05-2019 Electrocardiographic no information no name (no suzanne ne) [place] [facility] (48591) 03-05-2019 - 03-05-2019 03-05-2019 Oxygen measurement 3 no name (no phone) [place] [facility] (77260) 08-07-2019 Plain chest X-ray no information no name (no phone) [facility] (65104) 08-06-2019 Plain chest X-ray no information no name (no phone) [place] [facility] (05887) 08-05-2019 Plain chest X-ray no information no name (no phone) [facility] (40489) 08-04-2019 Plain chest X-ray no information no name (no phone) [facility] (19976) 08-03-2019 Plain chest X-ray no information no name (no phone) [place] (36816) 08-02-2019 Plain chest X-ray no information no name (no phone) no [place] [facility] (no phone) [facility] (95787) 08-02-2019 - 08-02-2019 03-05-2019 Plain chest X-ray no information no name (no phone) [place] [facility] (66796) 03-05-2019 - 03-05-2019 Immunizations Normalized Immunization Date Notes Care Provider Facili ty Immunization pneumococcal 05-24-2016 no information no name Not Availa ble polysaccharide (93079) vaccine, 23 valent no information 03-05-2019 - no information FÁTIMA MONTANA [address] [facility] 03-05-2019 [facility] (78381) Results Test Name Value Interpretation Reference Range Date Time Fa cility (Normalized) (Normalized) (Medline Reference) venous blood hemoglobin measurement (mass/volume) on 2019-08-07 Hemoglobin (Bld) 10.9 g/dL (L) 12.1 - 17.2 g/dL 08-07-2019 [facility] [Mass/Vol] 09:05-0500 [facility] (01362) serum or plasma urea nitrogen/creatin ine mass ratio on 2019-08-07 Urea 22 mg/mg (no code) 6 - 22 mg/mg 08-07-2019 [facility] nitrogen/Creatin 06:0500 [facility] ine [Mass ratio] (25037) serum or plasma urea nitrogen measurement (mass/volume) on 2019-08-07 Urea nitrogen 19 mg/dL (H) 7 - 20 mg/dL 08-07-2019 [facility] [Mass/Vol] 06:30-0500 [facility] (93762) serum or plasma sodium measurement (moles/volume) on 2019-08-07 Sodium 140 mmol/L (no code) 135 - 145 mmol/L 08-07-2019 [facility] [Moles/Vol] 06:30-0500 [facility] (61005) serum or plasma potassium measurement (moles/volume) on 2019-08-07 Potassium 3.6 mmol/L (no code) 3.7 - 5.2 mmol/L 08-07-2019 [facility] [Moles/Vol] 06:30-0500 [facility] (83473) serum or plasma phosphate measurement (mass/volume) on 2019-08-07 Phosphate 2.6 mg/dL (no code) 2.4 - 4.1 mg/dL 08-07-2019 [facility] [Mass/Vol] 06:30-0500 [facility] (10722) serum or plasma glucose measurement (mass/volume) on 2019-08-07 Glucose 86 mg/dL (no code) 60 - 125 mg/dL 08-07-2019 [facility] [Mass/Vol] 06:30-0500 [facility] (04960) serum or plasma creatinine measurement with calculation of estimated glomerular filtration rate on 2019-08-07 GFR/1.73 sq M mL/min/{1.73_m2} (no code) 90 - 120 08-07-2019 [facility] predicted among mL/min/{1.73_m2} 06:30-0500 [facility] spital non-blacks MDRD (57196) (S/P/Bld) [Vol rate/Area] Comment: GFR INTERPRETIVE DATA UNITS FOR ESTIMATED GFR (eGFR): mL/min/1.73 M2 REFERENCE RANGE FOR ESTIMATED GFR (eGFR) eGFR NORMAL eGFR >60 MODERATELY DECREASED eGFR 30-59 SEVERLY DECREASED eGFR 15-29 KIDNEY FAILURE <15 (OR DIALYSIS) serum or plasma creatinine measurement (mass/volume) on 2019-08-07 Creatinine 0.85 mg/dL (no code) 08-07-2019 [place] [facility] [Mass/Vol] 06:30-0500 [facility] (51084) serum or plasma chloride measurement (moles/volume) on 2019-08-07 Chloride 107 mmol/L (no code) 95 - 106 mmol/L 08-07-2019 [facility] [Moles/Vol] 06:30-0500 [facility] (00296) serum or plasma calcium measurement (mass/volume) on 2019-08-07 Calcium 7.4 mg/dL (L) 8.5 - 10.2 mg/dL 08-07-2019 [facility] [Mass/Vol] 06:30-0500 [facility] (77250) serum or plasma anion gap determination (moles/volume) on 2019-08-07 Anion gap 7 mmol/L (no code) 3 - 11 mmol/L 08-07-2019 [facility] [Moles/Vol] 06:300500 [facility] (20734) magnesium on 2019-08-07 Magnesium 1.9 mg/dL (no code) 1.7 - 2.2 mg/dL 08-07-2019 [facility] [Mass/Vol] 06:30-0500 [facility] (88565) carbon dioxide on 2019-08-07 CO2 [Moles/Vol] 26 mmol/L (no code) 23 - 29 mmol/L 08-07-2019 [facility] 06:30-0500 [facility] (56419) blood monocytes/100 leukocytes on 2019-08-07 Monocytes/100 9 % (no code) 2 - 8 % 08-07-2019 [facility] WBC (Bld) 09:050500 [facility] (30975) blood monocytes automated count (number/volume) on 2019-08-07 Monocytes (Bld) 0.7 10*3/uL (no code) 0.3 - 0.9 08-07-2019 As[facility] [#/Vol] 10*3/uL 09:050500 [facility] l (75661) blood hematocrit (volume fraction) on 2019-08-07 Hematocrit (Bld) 33 % (L) 36.1 - 50.3 % 08-07-2019 [facility] [Volume 09:050500 [facility] fraction] (93915) blood erythrocytes automated count (number/volume) on 2019-08-07 RBC (Bld) 3.58 10*6/uL (L) 4.2 - 6.1 08-07-2019 [place] [facility] [#/Vol] 10*6/uL 09:050500 [facility] (08160) automated erythrocyte mean corpuscular volume (mcv) measurement on 2019-08-07 MCV (RBC) 93 fL (no code) 80 - 100 fL 08-07-2019 [place] [facility] [Entitic vol] 09:050500 [facility] (70929) automated erythrocyte mean corpuscular hemoglobin concentration measurement (mass/volume) on 2019-08-07 MCHC (RBC) 33 g/dL (no code) 32 - 36 g/dL 08-07-2019 [facility] [Mass/Vol] 09:050500 [facility] (46047) automated erythrocyte mean corpuscular hemoglobin (mass per erythrocyte) on 2019-08-07 MCH (RBC) 30 pg (no code) 27 - 31 pg 08-07-2019 [place] V ia [Entitic mass] 09:050500 [facility] (56808) automated erythrocyte distribution width ratio on 2019-08-07 Erythrocyte 14.2 % (no code) 11.6 - 14.6 % 08-07-2019 [facility] distribution : [facility] width (RBC) (17697) [Ratio] automated eosinophil count on 2019-08-07 Eosinophils 0.0 10*3/uL (no code) 0.05 - 0.5 08-07-2019 [facility] (Bld) [#/Vol] [facility]L [facility] platelet mean volume measurement on 2019-08-07 Platelet mean 9.3 fL (no code) 7.2 - 11.7 fL 08-07-2019 As[facility] Via volume (Bld) 09: [facility] [Entitic vol] (14426) automated blood platelet count (count/volume) on 2019-08-07 Platelets (Bld) 97 10*3/uL (L) 150 - 450 08-07-2019 [facility] [#/Vol] 10*3/uL 09: [facility] l (92322) automated blood neutrophils/100 leukocytes on 2019-08-07 Neutrophils/100 81 % (H) 40 - 60 % 08-07-2019 [facility] WBC (Bld) 09: [facility] (32922) automated blood neutrophil count (number/volume) on 2019-08-07 Neutrophils 6.5 10*3/uL (no code) 1.7 - 7 10*3/uL 08-07-2019 [facility] (Bld) [#/Vol] 09:0500 [facility] (66867) automated blood lymphocytes/100 leukocytes on 2019-08-07 Lymphocytes/100 10 % (L) 20 - 40 % 08-07-2019 [facility] WBC (Bld) 09:0500 [facility] (36191) automated blood lymphocyte count (number/volume) on 2019-08-07 Lymphocytes 0.8 10*3/uL (L) 0.9 - 2.9 08-07-2019 [facility] (Bld) [#/Vol] 10*3/uL 09:050500 [facility] al (20522) automated blood leukocyte count (number/volume) on 2019-08-07 WBC (Bld) 8.0 10*3/uL (no code) 3.5 - 10.5 08-07-2019 [place] [facility] [#/Vol] 10*3/uL 09:05050 [facility] l (83846) automated blood eosinophils/100 leukocytes on 2019-08-07 Eosinophils/100 0 % (no code) 1 - 4 % 08-07-2019 [facility] WBC (Bld) 09: [facility] (59742) automated blood basophils/100 leukocytes on 2019-08-07 Basophils/100 0 % (no code) 0.5 - 1 % 08-07-2019 [facility] WBC (Bld) 09: [facility] (51761) automated blood basophil count (number/volume) on 2019-08-07 Basophils (Bld) 0.0 10*3/uL (no code) 0 - 0.3 10*3/uL 08-07-2019 [place] [facility] [#/Vol] 09: [facility] ([id number]) manual blood segmented neutrophils/100 leukocytes on 2019-08-06 Segmented 91 % (no code) 35 - 80 % 08-06-2019 [facility] a neutrophils/100 06: [facility] WBC (Bld) ([id number]) manual blood lymphocytes/100 leukocytes on 2019-08-06 Lymphocytes/100 5 % (no code) 20 - 40 % 08-06-2019 [facility] WBC (Bld) 06: [facility] ([id number]) blood monocytes/100 leukocytes on 2019-08-06 Monocytes/100 4 % (no code) 2 - 8 % 08-06-2019 [facility] WBC (Bld) 06: [facility] ([id number]) blood erythrocyte morphology finding identification on 2019-08-06 RBC morphology NORMAL (no code) 08-06-2019 [facility] finding Nom 06: [facility] (Bld) ([id number]) vancomycin trough on 2019-08-04 Vancomycin 7.3 ug/mL (L) 10 - 20 ug/mL 08-04-2019 [facility] trough 13:0 [facility] [Mass/Vol] ([id number]) capillary blood glucose measurement by glucometer (mass/volume) on 2019-08-04 Glucose 133 mg/dL (H) 60 - 125 mg/dL 08-04-2019 [facility] [Mass/Vol] 14:42-0500 [facility] ([id number]) bnp level on 2019-08-03 Natriuretic 920.9 pg/mL (H) 0 - 100 pg/mL 08-03-2019 [facility] peptide B (Bld) 06:07-0500 [facility] [Mass/Vol] ([id number]) urine urobilinogen measurement by automated test strip (mass/volume) on 2019-08-02 Urobilinogen (U) 0.2 mg/dL (no code) 08-02-2019 [facility] [Mass/Vol] 10:50-0500 [facility] ([id number]) urine total bilirubin detection by test strip on 2019-08-02 Bilirubin Ql (U) no information (no code) 08-02-2019 [facility] 10:50-0500 [facility] ([id number]) urine protein assay by test strip, semi-quantitativ e on 2019-08-02 Protein Ql (U) 1+ (no code) 08-02-2019 [place] 10:50-0500 [facility] ([id number]) urine ph measurement by test strip on 2019-08-02 pH (U) 6.5 [pH] (no code) 4.6 - 8 [pH] 08-02-2019 [facility] 10:50-0500 [facility] ([id number]) urine nitrite detection by test strip on 2019-08-02 Nitrite Ql (U) no information (no code) 08-02-2019 [facility] 10:50-0500 [facility] ([id number]) urine leukocyte esterase detection by dipstick on 2019-08-02 Leukocyte 3+ (no code) 08-02-2019 [facility] esterase Test 10:50-0500 [facility] strip Ql (U) ([id number]) urine ketones detection by automated test strip on 2019-08-02 Ketones Auto no information (no code) 08-02-2019 [facility] test strip Ql 10:50-0500 [facility] (U) ([id number]) urine glucose detection by automated test strip on 2019-08-02 Glucose Auto no information (no code) 08-02-2019 [facility] test strip Ql 10:50-0500 [facility] (U) ([id number]) urine color determination on 2019-08-02 Color (U) YELLOW (no code) 08-02-2019 [facility] 10:50-0500 [facility] ([id number]) urine clarity determination on 2019-08-02 Clarity (U) CLOUDY (no code) 08-02-2019 [facility] 10:50-0500 [facility] ([id number]) squamous epithelial cells detection in urine sediment by light microscopy on 2019-08-02 Epithelial NONE (no code) 08-02-2019 [facility] cells.squamous 10:50-0500 [facility] LM Ql (Urine ([id number]) sed) specific gravity of urine by test strip on 2019-08-02 Specific gravity 1.025 (no code) 08-02-2019 [facility] (U) [Rel 10:50-0500 [facility] density] ([id number]) serum or plasma troponin i.cardiac measurement (mass/volume) on 2019-08-02 Troponin 0.037 ng/mL (H) 0 - 0.4 ng/mL 08-02-2019 [facility] I.cardiac 10:30-0500 [facility] [Mass/Vol] ([id number]) serum or plasma total bilirubin measurement (mass/volume) on 2019-08-02 Bilirubin 0.9 mg/dL (no code) 0.1 - 1.2 mg/dL 08-02-2019 [facility] [Mass/Vol] 10:30-0500 [facility] ([id number]) serum or plasma protein measurement (mass/volume) on 2019-08-02 Protein 7.5 g/dL (no code) 6.4 - 8.3 g/dL 08-02-2019 [facility] [Mass/Vol] 10:30-0500 [facility] ([id number]) serum or plasma lactate measurement (moles/volume) on 2019-08-02 Lactate 2.00 mmol/L (no code) 0.5 - 2.2 mmol/L 08-02-2019 [facility] [Moles/Vol] 19:33-0500 [facility] ([id number]) serum or plasma aspartate aminotransferase measurement (enzymatic activity/volume) on 2019-08-02 AST [Catalytic 13 U/L (no code) 10 - 34 U/L 08-02-2019 [facility] activity/Vol] 10:30-0500 [facility] ([id number]) serum or plasma amylase measurement (enzymatic activity/volume) on 2019-08-02 Amylase 136 U/L (H) 40 - 140 U/L 08-02-2019 [facility] [Catalytic 10:30-0500 [facility] activity/Vol] ([id number]) serum or plasma alkaline phosphatase measurement (enzymatic activity/volume) on 2019-08-02 ALP [Catalytic 94 U/L (no code) 44 - 147 U/L 08-02-2019 [facility] activity/Vol] 10:30 [facility] ([id number]) serum or plasma albumin measurement (mass/volume) on 2019-08-02 Albumin 4.2 g/dL (no code) 3.4 - 5.4 g/dL 08-02-2019 [facility] [Mass/Vol] 10:30050 [facility] ([id number]) serum or plasma alanine aminotransferase measurement (enzymatic activity/volume) on 2019-08-02 ALT [Catalytic 8 U/L (no code) 4 - 40 U/L 08-02-2019 [facility] activity/Vol] 10:300 [facility] ([id number]) prothrombin time (pt) in platelet poor plasma on 2019-08-02 PT Coag (PPP) 14.7 s (no code) 9.4 - 12.5 s 08-02-2019 [facility] [Time] 10:300500 [facility] (03905) mucus detection in urine sediment by light microscopy on 2019-08-02 Mucus Ql (Urine no information (no code) 08-02-2019 [facility] sed) 10:50-0500 [facility] ([id number]) methicillin resistant staphylococcus aureus (mrsa) screening culture on 2019-08-02 MRSA isol Org MRSA not (no code) 08-02-2019 [facility] specific cx Ql isolated 13: [facility] (Unsp spec) ([id number]) manual eosinophils/100 leukocytes in nose on 2019-08-02 Eosinophils/100 0 % (no code) 08-02-2019 [facility] WBC (Nose) 10:300500 [facility] ([id number]) manual blood basophils/100 leukocytes on 2019-08-02 Basophils/100 0 % (no code) 0.5 - 1 % 08-02-2019 [facility] WBC (Bld) 10:30-0500 [facility] ([id number]) lipase on 2019-08-02 Lipase 12 U/L (no code) 10 - 73 U/L 08-02-2019 [facility] [Catalytic 10:30-0500 [facility] activity/Vol] ([id number]) inr in platelet poor plasma or blood by coagulation assay on 2019-08-02 INR Coag 1.1 (no code) 08-02-2019 [facility] (Platelet poor 10:30-0500 [facility] plasma or blood) ([id number]) [Relative time] Comment: INTERPRETIVE DATASUGGESTED THERAPEUTIC RANGE FOR INR'S: VENOUS THROMBOSIS, PULMONARY EMBOLISM, OR PREVENTION OF SYSTEMIC EMBOLISM (EG. IN ATRIAL FIBRILLATION): 2.0 - 3.0 MECHANICAL PROSTHETIC HEART VALVES: 2.5 - 3.5NOTE: INR'S UP TO 4.5 MAY BE NECESSARY IN SELECTED GROUPS OF HIGH RISK PATIENTS.SIXTH [employer] OF CHEST PHYSICIANS CONSENSUSCONFERE NCE ON ANTITHROMBOTIC THERAPY (2000). erythrocytes detection in urine sediment by light microscopy on 2019-08-02 RBC Ql (U) 2+ (no code) 08-02-2019 [facility] 10:50-0500 [facility] ([id number]) crystals detection in urine sediment by light microscopy on 2019-08-02 Crystals LM Ql NONE (no code) 08-02-2019 [facility] (Urine sed) 10:500500 [facility] ([id number]) casts detection in urine sediment by light microscopy on 2019-08-02 Casts LM Ql NONE (no code) 08-02-2019 [facility] (Urine sed) 10:500500 [facility] (46151) calcium measurement corrected for albumin on 2019-08-02 Calcium 9.1 mg/dL (no code) 8.5 - 10.2 mg/dL 08-02-2019 [facility] [Mass/Vol] 10:300500 [facility] ([id number]) Comment: Calcium corrected calculation = [0.8x(normal albumin - patient's albumin] + serum Ca levelformula in [employer] is (4-ALB)*0.8+CA blood lactic acid measurement (moles/volume) on 2019-08-02 Lactate 8.02 mmol/L (no code) 0.5 - 2.2 mmol/L 08-02-2019 [facility] [Moles/Vol] 10:30-0500 [facility] ([id number]) Comment: RESULTS CALLED TO CECILIO AT 0803. RESULTS READ BACK: YES.Lactic acid levels can appear lower than actual values in patients receiving NAC (N-Acetyl Cysteine). blood band neutrophils/100 leukocytes on 2019-08-02 Band form 17 % (no code) 0 - 3 % 08-02-2019 [facility] neutrophils/100 10:30-0500 [facility] WBC (Bld) ([id number]) bacterial urine culture on 2019-08-02 Bacteria Staphylococcus (no code) 08-02-2019 [facility] identified Cx aureus 10:50-0500 [facility] Nom (U) ([id number]) bacterial blood culture on 2019-08-02 Bacteria No growth (no code) 08-02-2019 [facility] identified Cx 11:06-0500 [facility] Nom (Bld) ([id number]) bacteria detection in urine sediment by light microscopy on 2019-08-02 Bacteria LM Ql MODERATE (no code) 08-02-2019 [facility] (Urine sed) 10:50-0500 [facility] ([id number]) automated urine sediment leukocyte count by microscopy (number/high power field) on 2019-08-02 WBC LM.HPF TNTC (no code) 08-02-2019 [facility] (Urine sed) 10:50-0500 [facility] [#/Area] ([id number]) automated urine sediment erythrocyte count by microscopy (number/high power field) on 2019-08-02 RBC LM.HPF 2-5 (no code) 08-02-2019 [facility] (Urine sed) 10:50-0500 [facility] [#/Area] ([id number]) activated partial thromboplastin time (aptt) in platelet poor plasma bycoagulation assay on 2019-08-02 aPTT Coag (PPP) 27 s (no code) 25 - 35 s 08-02-2019 [facility] [Time] 10:30-0500 [facility] ([id number]) serum or plasma lactate measurement (moles/volume) on 2019-03-06 Lactate 5.21 mmol/L (no code) 0.5 - 2.2 mmol/L 03-06-2019 [facility] [Moles/Vol] 00:45-0400 [facility] ([id number]) Comment: RESULTS CALLED TO KARINE AT 2218. RESULTS READ BACK: YESYES.Lactic acid levels can appear lower than actual values in patients receiving NAC (N-Acetyl Cysteine). venous blood hemoglobin measurement (mass/volume) on 2019-03-05 Hemoglobin (Bld) 12.9 g/dL (L) 12.1 - 17.2 g/dL 03-05-2019 [facility] [Mass/Vol] 21:45-0400 [facility] ([id number]) urine urobilinogen measurement by automated test strip (mass/volume) on 2019-03-05 Urobilinogen (U) 1 (no code) 03-05-2019 [facility] [Mass/Vol] 22:53-0400 [facility] ([id number]) urine total bilirubin detection by test strip on 2019-03-05 Bilirubin Ql (U) no information (no code) 03-05-2019 [facility] 22:530400 [facility] (58904) urine protein assay by test strip, semi-quantitativ e on 2019-03-05 Protein Ql (U) 3+ (no code) 03-05-2019 [place] [facility] 22:53-0400 [facility] ([id number]) urine ph measurement by test strip on 2019-03-05 pH (U) 5 [pH] (no code) 4.6 - 8 [pH] 03-05-2019 [facility] 22:53-0400 [facility] ([id number]) urine nitrite detection by test strip on 2019-03-05 Nitrite Ql (U) no information (no code) 03-05-2019 [facility] 22:530400 [facility] ([id number]) urine leukocyte esterase detection by dipstick on 2019-03-05 Leukocyte 3+ (no code) 03-05-2019 [facility] esterase Test 22:53-0400 [facility] strip Ql (U) ([id number]) urine ketones detection by automated test strip on 2019-03-05 Ketones Auto no information (no code) 03-05-2019 [facility] test strip Ql 22:53-0400 [facility] (U) ([id number]) urine glucose detection by automated test strip on 2019-03-05 Glucose Auto no information (no code) 03-05-2019 [facility] test strip Ql 22:53-0400 [facility] (U) ([id number]) urine color determination on 2019-03-05 Color (U) YELLOW (no code) 03-05-2019 [facility] 22:53-0400 [facility] ([id number]) urine clarity determination on 2019-03-05 Clarity (U) VERY CLOUDY (no code) 03-05-2019 [facility] 22:53-0400 [facility] ([id number]) squamous epithelial cells detection in urine sediment by light microscopy on 2019-03-05 Epithelial 5-10 (no code) 03-05-2019 [facility] cells.squamous 22:530400 [facility] LM Ql (Urine (94484) sed) specific gravity of urine by test strip on 2019-03-05 Specific gravity 1.025 (no code) 03-05-2019 [facility] (U) [Rel 22:53-0400 [facility] density] (77976) setting of ventilation mode on 2019-03-05 Ventilation mode NO (no code) 03-05-2019 [facility] Ventilator 22:00-0400 [facility] ([id number]) serum or plasma urea nitrogen/creatin ine mass ratio on 2019-03-05 Urea 13 mg/mg (no code) 6 - 22 mg/mg 03-05-2019 [facility] nitrogen/Creatin 21:45-0400 [facility] ine [Mass ratio] ([id number]) serum or plasma urea nitrogen measurement (mass/volume) on 2019-03-05 Urea nitrogen 15 mg/dL (no code) 7 - 20 mg/dL 03-05-2019 [facility] [Mass/Vol] 21:45-0400 [facility] ([id number]) serum or plasma troponin i.cardiac measurement (mass/volume) on 2019-03-05 Troponin 0.183 ng/mL (H) 0 - 0.4 ng/mL 03-05-2019 [facility] I.cardiac 21:45-0400 [facility] [Mass/Vol] ([id number]) serum or plasma total bilirubin measurement (mass/volume) on 2019-03-05 Bilirubin 0.9 mg/dL (no code) 0.1 - 1.2 mg/dL 03-05-2019 [facility] [Mass/Vol] 21:45-0400 [facility] (30963) serum or plasma sodium measurement (moles/volume) on 2019-03-05 Sodium 141 mmol/L (no code) 135 - 145 mmol/L 03-05-2019 [facility] [Moles/Vol] 21:45-0400 [facility] ([id number]) serum or plasma protein measurement (mass/volume) on 2019-03-05 Protein 7.8 g/dL (no code) 6.4 - 8.3 g/dL 03-05-2019 [facility] [Mass/Vol] :45040 [facility] () serum or plasma potassium measurement (moles/volume) on 2019-03-05 Potassium 4.6 mmol/L (no code) 3.7 - 5.2 mmol/L 03-05-2019 [facility] [Moles/Vol] 21:45040 [facility] (51765) serum or plasma glucose measurement (mass/volume) on 2019-03-05 Glucose 110 mg/dL (H) 60 - 125 mg/dL 03-05-2019 [facility] [Mass/Vol] 21:45-040 [facility] ([id number]) serum or plasma creatinine measurement with calculation of estimated glomerular filtration rate on 2019-03-05 GFR/1.73 sq M mL/min/{1.73_m2} (no code) 90 - 120 03-05-2019 [facility] predicted among mL/min/{1.73_m2} :45-040 [facility] spital non-blacks MDRD ([id number]) (S/P/Bld) [Vol rate/Area] Comment: GFR INTERPRETIVE DATA UNITS FOR ESTIMATED GFR (eGFR): mL/min/1.73 M2 REFERENCE RANGE FOR ESTIMATED GFR (eGFR) eGFR NORMAL eGFR >60 MODERATELY DECREASED eGFR 30-59 SEVERLY DECREASED eGFR 15-29 KIDNEY FAILURE <15 (OR DIALYSIS) serum or plasma creatinine measurement (mass/volume) on 2019-03-05 Creatinine 1.14 mg/dL (no code) 03-05-2019 [facility] [Mass/Vol] 21:45-0400 [facility] ([id number]) serum or plasma chloride measurement (moles/volume) on 2019-03-05 Chloride 106 mmol/L (no code) 95 - 106 mmol/L 03-05-2019 [facility] [Moles/Vol] 21:45-0400 [facility] ([id number]) serum or plasma calcium measurement (mass/volume) on 2019-03-05 Calcium 9.0 mg/dL (no code) 8.5 - 10.2 mg/dL 03-05-2019 [facility] [Mass/Vol] 21:45-0400 [facility] ([id number]) serum or plasma aspartate aminotransferase measurement (enzymatic activity/volume) on 2019-03-05 AST [Catalytic 18 U/L (no code) 10 - 34 U/L 03-05-2019 [facility] activity/Vol] 21:45-0400 [facility] ([id number]) serum or plasma anion gap determination (moles/volume) on 2019-03-05 Anion gap 10 mmol/L (no code) 3 - 11 mmol/L 03-05-2019 [facility] [Moles/Vol] 21:45-0400 [facility] ([id number]) serum or plasma alkaline phosphatase measurement (enzymatic activity/volume) on 2019-03-05 ALP [Catalytic 107 U/L (no code) 44 - 147 U/L 03-05-2019 [facility] activity/Vol] 21:45-0400 [facility] ([id number]) serum or plasma albumin measurement (mass/volume) on 2019-03-05 Albumin 3.8 g/dL (no code) 3.4 - 5.4 g/dL 03-05-2019 [facility] [Mass/Vol] 21:45-0400 [facility] ([id number]) serum or plasma alanine aminotransferase measurement (enzymatic activity/volume) on 2019-03-05 ALT [Catalytic 13 U/L (no code) 4 - 40 U/L 03-05-2019 [facility] activity/Vol] 21:45-0400 [facility] ([id number]) prothrombin time (pt) in platelet poor plasma on 2019-03-05 PT Coag (PPP) 14.7 s (no code) 9.4 - 12.5 s 03-05-2019 [facility] [Time] 21:45-0400 [facility] ([id number]) mucus detection in urine sediment by light microscopy on 2019-03-05 Mucus Ql (Urine no information (no code) 03-05-2019 [facility] sed) 22:53-0400 [facility] ([id number]) manual eosinophils/100 leukocytes in nose on 2019-03-05 Eosinophils/100 1 % (no code) 03-05-2019 [facility] WBC (Nose) 21:45-0400 [facility] ([id number]) manual blood segmented neutrophils/100 leukocytes on 2019-03-05 Segmented 87 % (no code) 35 - 80 % 03-05-2019 [place] neutrophils/100 21:45-0400 [facility] WBC (Bld) ([id number]) manual blood lymphocytes/100 leukocytes on 2019-03-05 Lymphocytes/100 9 % (no code) 20 - 40 % 03-05-2019 [facility] WBC (Bld) 21:45-0400 [facility] ([id number]) lipase on 2019-03-05 Lipase 18 U/L (no code) 10 - 73 U/L 03-05-2019 [facility] [Catalytic 21:40-0400 [facility] activity/Vol] ([id number]) inr in platelet poor plasma or blood by coagulation assay on 2019-03-05 INR Coag 1.1 (no code) 03-05-2019 [facility] (Platelet poor 21:45-0400 [facility] plasma or blood) ([id number]) [Relative time] Comment: INTERPRETIVE DATASUGGESTED THERAPEUTIC RANGE FOR INR'S: VENOUS THROMBOSIS, PULMONARY EMBOLISM, OR PREVENTION OF SYSTEMIC EMBOLISM (EG. IN ATRIAL FIBRILLATION): 2.0 - 3.0 MECHANICAL PROSTHETIC HEART VALVES: 2.5 - 3.5NOTE: INR'S UP TO 4.5 MAY BE NECESSARY IN SELECTED GROUPS OF HIGH RISK PATIENTS.SIXTH [employer] CONSENSUSCONFERE NCE ON ANTITHROMBOTIC THERAPY (2000). erythrocytes detection in urine sediment by light microscopy on 2019-03-05 RBC Ql (U) 5+ (no code) 03-05-2019 [facility] 22:53-0400 [facility] ([id number]) crystals detection in urine sediment by light microscopy on 2019-03-05 Crystals LM Ql PRESENT (no code) 03-05-2019 [place] (Urine sed) 22:53-0400 [facility] ([id number]) complete urinalysis with reflex to culture on 2019-03-05 Urinalysis CULTURE PENDING (no code) 03-05-2019 [facility] complete W 22:53-0400 [facility] Reflex Culture ([id number]) panel - Urine Comment: culture already in progress casts detection in urine sediment by light microscopy on 2019-03-05 Casts LM Ql NONE (no code) 03-05-2019 [facility] (Urine sed) 22:53-0400 [facility] ([id number]) carbon dioxide on 2019-03-05 CO2 [Moles/Vol] 25 mmol/L (no code) 23 - 29 mmol/L 03-05-2019 [facility] 21:45-0400 [facility] ([id number]) calcium measurement corrected for albumin on 2019-03-05 Calcium 9.2 mg/dL (no code) 8.5 - 10.2 mg/dL 03-05-2019 [facility] [Mass/Vol] 21:45-040 [facility] ([id number]) Comment: Calcium corrected calculation = [0.8x(normal albumin - patient's albumin] + serum Ca levelformula in [employer] is (4-ALB)*0.8+CA blood po2 on 2019-03-05 Oxygen (Bld) 414 mm[Hg] (H) 75 - 100 mm[Hg] 03-05-2019 [facility] [Partial 22:00-0400 [facility] pressure] ([id number]) blood pco2 on 2019-03-05 CO2 (Bld) 39 mm[Hg] (no code) 35 - 45 mm[Hg] 03-05-2019 [facility] [Partial 22:00-0400 [facility] pressure] ([id number]) blood monocytes/100 leukocytes on 2019-03-05 Monocytes/100 6 % (no code) 2 - 8 % 03-05-2019 [facility] WBC (Bld) 21:450400 [facility] ([id number]) Monocytes/100 3 % (no code) 2 - 8 % 03-05-2019 [facility] WBC (Bld) 21:450400 [facility] ([id number]) blood monocytes automated count (number/volume) on 2019-03-05 Monocytes (Bld) 1.0 10*3/uL (no code) 0.3 - 0.9 03-05-2019 [facility] [#/Vol] 10*3/uL 21:45-0400 [facility] ([id number]) blood lactic acid measurement (moles/volume) on 2019-03-05 Lactate 2.35 mmol/L (no code) 0.5 - 2.2 mmol/L 03-05-2019 [facility] [Moles/Vol] 21:45-0400 [facility] ([id number]) Comment: RESULTS CALLED TO MELISSA AT 1912. RESULTS READ BACK: yesYES.Lactic acid levels can appear lower than actual values in patients receiving NAC (N-Acetyl Cysteine). blood hematocrit (volume fraction) on 2019-03-05 Hematocrit (Bld) 40 % (no code) 36.1 - 50.3 % 03-05-2019 [facility] [Volume 21:45-0400 [facility] fraction] ([id number]) blood erythrocytes automated count (number/volume) on 2019-03-05 RBC (Bld) 4.47 10*6/uL (no code) 4.2 - 6.1 03-05-2019 [facility] [#/Vol] 10*6/uL 21:45-0400 [id number][facility] erythrocyte morphology finding identification on 2019-03-05 RBC morphology NORMAL (no code) 03-05-2019 [place] [facility] finding Nom 21:45-0400 [facility] (Bld) ([id number]) bacteria detection in urine sediment by light microscopy on 2019-03-05 Bacteria LM Ql MODERATE (no code) 03-05-2019 [place] [facility] (Urine sed) 22:53-0400 [facility] ([id number]) automated urine sediment leukocyte count by microscopy (number/high power field) on 2019-03-05 WBC LM.HPF /[HPF] (no code) 0 - 5 /[HPF] 03-05-2019 [facility] (Urine sed) 22:53-0400 [facility] [#/Area] ([id number]) automated urine sediment erythrocyte count by microscopy (number/high power field) on 2019-03-05 RBC LM.HPF 25-50 (no code) 03-05-2019 [facility] (Urine sed) 22:53-0400 [facility] [#/Area] ([id number]) automated erythrocyte mean corpuscular volume (mcv) measurement on 2019-03-05 MCV (RBC) 90 fL (no code) 80 - 100 fL 03-05-2019 [facility] [Entitic vol] 21:45-0400 [facility] (81051) automated erythrocyte mean corpuscular hemoglobin concentration measurement (mass/volume) on 2019-03-05 MCHC (RBC) 32 g/dL (no code) 32 - 36 g/dL 03-05-2019 [facility] [Mass/Vol] :45040 [facility] (21054) automated erythrocyte mean corpuscular hemoglobin (mass per erythrocyte) on 2019-03-05 MCH (RBC) 29 pg (no code) 27 - 31 pg 03-05-2019 [facility] [Entitic mass] 21:45040 [facility] ([id number]) automated erythrocyte distribution width ratio on 2019-03-05 Erythrocyte 14.2 % (no code) 11.6 - 14.6 % 03-05-2019 [facility] distribution : [facility] width (RBC) ([id number]) [Ratio] automated eosinophil count on 2019-03-05 Eosinophils 0.0 10*3/uL (no code) 0.05 - 0.5 03-05-2019 [facility] (Bld) [#/Vol] 10*3/uL :45040 [facility] ([id number]) automated blood platelet mean volume measurement on 2019-03-05 Platelet mean 9.9 fL (no code) 7.2 - 11.7 fL 03-05-2019 [facility] volume (Bld) :45040 [facility] [Entitic vol] ([id number]) automated blood platelet count (count/volume) on 2019-03-05 Platelets (Bld) 148 10*3/uL (no code) 150 - 450 03-05-2019 [facility] [#/Vol] 10*3/uL 21:45040 [facility] (61205) automated blood neutrophils/100 leukocytes on 2019-03-05 Neutrophils/100 88 % (H) 40 - 60 % 03-05-2019 [facility] WBC (Bld) :45040 [facility] ([id number]) automated blood neutrophil count (number/volume) on 2019-03-05 Neutrophils 14.0 10*3/uL (H) 1.7 - 7 10*3/uL 03-05-2019 [facility] (Bld) [#/Vol] 21:45040 [facility] ([id number]) automated blood lymphocytes/100 leukocytes on 2019-03-05 Lymphocytes/100 6 % (L) 20 - 40 % 03-05-2019 [facility] WBC (Bld) : [facility] () automated blood lymphocyte count (number/volume) on 2019-03-05 Lymphocytes 0.9 10*3/uL (L) 0.9 - 2.9 03-05-2019 [facility] (Bld) [#/Vol] 10*3/uL [facility]: [id number][facility] blood leukocyte count (number/volume) on 2019-03-05 WBC (Bld) 15.9 10*3/uL (H) 3.5 - 10.5 03-05-2019 [facility] [#/Vol] 10*3/uL 21: [facility] ([id number]) automated blood eosinophils/100 leukocytes on 2019-03-05 Eosinophils/100 0 % (no code) 1 - 4 % 03-05-2019 [facility] WBC (Bld) : [facility] () automated blood basophils/100 leukocytes on 2019-03-05 Basophils/100 0 % (no code) 0.5 - 1 % 03-05-2019 [facility] WBC (Bld) : [facility] () automated blood basophil count (number/volume) on 2019-03-05 Basophils (Bld) 0.0 10*3/uL (no code) 0 - 0.3 10*3/uL 03-05-2019 [facility] [#/Vol] :45 [facility] [facility] () assessment of wrist artery patency prior to arterial puncture on 2019-03-05 Arterial patency YES-POS (no code) 03-05-2019 [place] [facility] Wrist artery : [facility] --pre arterial (68699) puncture arterial blood ph measurement with patient temperature correction on 2019-03-05 pH adjusted to 7.38 (no code) 03-05-2019 [place] [facility] ia patient's actual :00 [facility] temperature (17189) (BldA) arterial blood oxygen saturation measurement on 2019-03-05 SaO2% (BldA) 100 (no code) 03-05-2019 [place] [facility] [Mass fraction] 22:00-0400 [facility] ([id number]) arterial blood carbon dioxide, total measurement (moles/volume) on 2019-03-05 CO2 [Moles/Vol] 23.0 mmol/L (no code) 23 - 29 mmol/L 03-05-2019 [place] [facility] 22:00-0400 [facility] ([id number]) arterial blood bicarbonate measurement (moles/volume) on 2019-03-05 HCO3 (Bld) 22 mmol/L (L) 22 - 28 mmol/L 03-05-2019 [facility] [Moles/Vol] 22:00-0400 [facility] ([id number]) arterial blood base excess determination by calculation on 2019-03-05 Base excess Calc -2.3 mmol/L (no code) -2 - 2 mmol/L 03-05-2019 [place] [facility] (Bld) 22:00-0400 [facility] [Moles/Vol] ([id number]) amorphous sediment detection in urine sediment by light microscopy on 2019-03-05 Amorphous FEW LADONNA URATES (no code) 03-05-2019 [place] [facility] sediment LM Ql 22:53-0400 [facility] (Urine sed) ([id number]) activated partial thromboplastin time (aptt) in platelet poor plasma bycoagulation assay on 2019-03-05 aPTT Coag (PPP) 29 s (no code) 25 - 35 s 03-05-2019 [facility] [Time] 21:45-0400 [facility] ([id number]) Vital Signs Vital Sign Value Interpretation Reference Date Time Care Prov ider Facility (Normalized) (Normalized) Range Body 37.7 (no code) 03-05-2019 FÁTIMA MONTANA [place] [facility] temperature 22:00-0400 34808 [facility] ([id number]) Interventions No Information Plan of Treatment Normalized Care Care Detail Care Activity Date Care Provider F acility Activity Bacteria identified no information no information FÁTIMA MONTANA [phone] [place] [facility] Cx Nom (Bld) [facility] (15263) Bacteria identified no information no information FÁTIMA MONTANA 6761 [place] [facility] Cx Nom (U) [facility] (58651) Microbial culture of no information no information FÁTIMA MONTANA 79995 [place] [facility] sputum [facility] (44621) Microscopic no information no information FÁTIMA MONTANA 78808 [facility] observation Gram [facility] stain Nom (Unsp (48343) spec) Patient Education Urinary Tract no information MD FÁTIMA MONTANA [phone] [place] [facility] Infection, Adult [facility] ([place]) (60175) Patient referral no information no information FÁTIMA MONTANA 6676 2 [place] [facility] (55406) Goals Patient Goal Desired Goal no information no information Social History Normalized Code Original Code Date Value no information no information 03-05-2019 Denies Use no information no information 03-05-2019 No no information no information 03-05-2019 Denies Sex Assigned At Sex Assigned At 1935 - 01-05 Male Tobacco smoking status Tobacco smoking status no information Never smoked tobacco SCIS [facility] (finding) no information no information 08-02-2019 Denies;Unknown no information no information 08-03-2019 Never a Smoker Functional Status Status Assessment Result Care Provider Facility Functional status Patient Orientation MD FÁTIMA MONTANA [address] [facility] Non-Verbal/Aphasic [facility] (29639) Functional status Pasero Opioid-induced MD FÁTIMA MONTANA 04[address] [place] [facility] Sedation Scale (POSS) Hospital (15200) Awake and alert Mental Status Status Assessment Result Care Provider Facility Cognitive function no information Unable to MD FÁTIMA MONTANA [phone] [place] [facility] Comprehend [facility] (69999) Encounters Encounter Normalized Encounter Encounter Diagnosis Care Provi randee Organization Date Type 03-05-2019 Emergency department no information (no phone) [facility] - patient visit Hospital (no phone) 03-06-2019 03-05-2019 Emergency department no information no name (no suzanne ne) no organization name - patient visit (no phone) 03-05-2019 05-08-2017 Emergency department no information no name (no suzanne ne) no organization name patient visit (no phone) 06-19-2016 Emergency department no information no name (no suzanne ne) no organization name patient visit (no phone) 05-19-2016 Emergency department no information no name (no suzanne ne) no organization name - patient visit (no phone) 05-19-2016 08-02-2019 Evaluation and Unspecified dementia (no phone) [facility] management of without behavioral Hospital ( no phone) 08-07-2019 inpatient disturbance NEGATED Evaluation and no information no name (no phone) n o organization name 05-08-2017 management of (no phone) - inpatient 05-19-2017 06-19-2016 Evaluation and no information no name (no phone) n o organization name - management of (no phone) 06-19-2016 inpatient 05-08-2017 Patient encounter no information no name (no phone) no organization name - (no phone) 05-19-2017 05-05-2017 Patient encounter no information no name (no phone) no organization name (no phone) Patient encounter no information no name (no phone) no organ ization name (no phone) 03-15-2019 Patient encounter no information no name (no phone) no organization name procedure (no phone) 03-05-2019 Patient encounter no information no name (no phone) no organization name procedure (no phone) 03-01-2019 Patient encounter no information no name (no phone) no organization name procedure (no phone) 03-27-2017 Patient encounter no information no name (no phone) no organization name procedure (no phone) 07-13-2016 Patient encounter no information no name (no phone) no organization name procedure (no phone) 06-19-2016 Patient encounter no information no name (no phone) no organization name - procedure (no phone) 06-19-2016 11-15-2013 Patient encounter no information no name (no phone) no organization name procedure (no phone) Medical Equipment The data below is from unstructured sourcesNo Medical Equipment Information availableNo Medical Equipment Information availableNo Medical Equipment Information available Payers Normalized Payer Value [facility] no information ([id number]) Medicare no information ([id number]) Urinalysis complete W Reflex Culture panel (U) 2019-08-02 Note Type Note Facility Urinalysis CULTURE PENDING complete W Reflex Culture panel (U) August 02, 2019 7:50am CUL TURE PENDING culture already in progress [place] [facility] Culture [facility] ([id number]) Comment: culture already in progress Evaluation note Note Type Note Facility Evaluation severe sepsis [place] note -Change abx to vanco/zosyn Via -Yeager cultures pending [facility]MRSA [facility] (86856) -Obtain PICC line. -Influenza neg Metabolic lactic acidosis -IVF Nausea/vomiting -Zofran PRN ARF -IVF -Monitor Atelectasis -Monitor Sepsis Urinary tract infection Hematuria Proteinuria Leukocytosis Lactic acidosis Acute kidney failure Dementia Hx of falls Coronary artery disease Atrial fibrillation Hx of stent placement Hx of stroke Glaucoma per records Hypertension per records IV fluids Cefipime Q12H IV Norepinephrine IV Lactic acidosis improving - continue to monitor SCD's in place for DVT prophylaxis severe sepsis - improving - vanco/zosyn -Yeager cultures pending -MRSA swab pending -PICC line. -Influenza neg Pulmonary edema -Will give 20mg of IV Lasix -KVO IVF Nausea/vomiting -Zofran PRN Thrombocytopenia -Monitor ARF -IVF -Monitor Atelectasis -Monitor UTI with MSSA -Continue Ancef Pulmonary edema -Monitor Thrombocytopenia -Monitor ARF -IVF -Monitor Atelectasis -Monitor Assessment/Pt Instructions Take medications as prescribed. Complet e her course of antibiotics for urinary tract infection. Continue metoprolol fo r rate control of atrial fibrillation. Follow up with her primar y care physician, Dr. Larson. Advance Directives Directive Response Recor ded Date/Time Advance Directives No 5:10am Resuscitation Status DNR-Pt Request 06/19/16 5:10am Directive Response Recor ded Date/Time Advance Directives No 5:10am Advance Directive Response Recorded Date/Time Advance Directives Yes S eptember 2018 6:41pm Health Care Power of Reimbursement Rep Yes March 05, 2019 6:41pm Resuscitation Status DNR-Pt Request March 05, 2019 6:41pm Advance Directive Response Recorded Date/Time Advance Directives Yes F ebruary 2019 8:25am Health Care Power of Reimbursement Rep Yes August 02, 2019 8:25am Organ Donor No August 02, 2019 8:25am Resuscitation Status DNR-Order Obtained August 02, 2019 8:25am Discharge Instructions No hospital discharge instructions.No hospital discharge instruction information available. Additional Instructions Patient Instructions Physician Instructions Hospital Course Date of Admission: Aug 02, 2019 at 09:47 Admission Diagnosis : Septic shock due to urinary tract infection Family Physician/Provider: Fátima Montana MD Date of Discharge: 08/07/19 Discharge Diagnosis: Septic shock due to urinary tract infection Hospital Course: Tenisha Russell is an 84-year-old male with severe dementia who is admitted with septic shock due to urinary tract infection. His infection was found to be due to MSSA. He was initially started on broad-spectrum antibiotics and was then transitioned to Ancef. On discharge he was given a short course of Keflex suspension. His course was complicated by an acute kidney injury which resolved with IV fluid resuscitation. He had a severe lactic acidosis on admission which resolved with IV fluids. He also suffered from atrial fibrillation with rapid ventricular response. This was improved with esmolol and he transition to oral metoprolol which improved his heart rate to the 90s. Via [facility] will check his vital signs twice daily and will contact Dr. Banegas and if he has consistent heart rate above 100. He was also started on Eliquis for stroke prophylaxis. His course was also complicated by dysphagia. It was recommended that another form of nutrition be given due to his dysphagia and poor intake. This was discussed with the family and they did not want to pursue either a Dobbhoff for a PEG tube placement. They chose to continue feeding him with the knowledge that he may continue to aspirate. He should follow-up with Dr. Larson. Labs and Pending Lab Test: Laboratory Tests 08/07/19 03:30: Sodium Level 140, Potassium Level 3.6, Chloride Level 107, Carbon Dioxide Level 26, Anion Gap 7, Blood Urea Nitrogen 19H, Creatinine 0.85, Estimat Glomerular Filtration Rate > 60, BUN/Creatinine Ratio 22, Glucose Level 86, Calcium Level 7.4L, Phosphorus Level 2.6, Magnesium Level 1.9 08/07/19 06:05: White Blood Count 8.0, Red Blood Count 3.58L, Hemoglobin 10.9L, Hematocrit 33L, Mean Corpuscular Volume 93, Mean Corpuscular Hemoglobin 30, Mean Corpuscular Hemoglobin Concent 33, Red Cell Distribution Width 14.2, Platelet Count 97L, Mean Platelet Volume 9.3, Neutrophils (%) (Auto) 81H, Lymphocytes (%) (Auto) 10L , Monocytes (%) (Auto) 9, Eosinophils (%) (Auto) 0, Basophils (%) (Auto) 0, Neutrophils # (Auto) 6.5, Lymphocytes # (Auto) 0.8L, Monocytes # (Auto) 0.7, Eosinophils # (Auto) 0.0, Basophils # (Auto) 0.0 Microbiology 08/02/19 MRSA Screen - Final, Complete MRSA not isolated 08/02/19 Blood Culture - Preliminary, Resulted No growth 08/02/19 Urine Culture - Final, Complete Staphylococcus aureus Home Meds Active Metoprolol Tartrate 25 Mg Tablet 25 Mg PO TID 90 Days Hold for heart rate < 60. Hold for SBP < 90. Cephalexin 250 Mg/5 Ml Susp.recon 10 Ml PO QID 5 Days Reported Ketoconazole 15 Gm Cream..g. 1 Applic TP DAILY APPLY TO BOTH FEET FOR TINEA Promethazine Suppository (Promethazine HCl) 25 Mg Supp.rect 25 Mg RC Q6H PRN Acetaminophen 650 Mg Supp.rect 650 Mg RC Q4H PRN Albuterol Sulfate 2.5 Mg/3 Ml Vial.neb 2.5 Mg IH Q8H PRN Ondansetron HCl 4 Mg Tablet 4 Mg PO Q6H PRN Xalatan (Latanoprost) 2.5 Ml Drops 1 Drop OU HS Tylenol (Acetaminophen) 325 Mg Tablet 650 Mg PO Q4H PRN TAKES 2 (325 MG) TABLETS Miralax (Polyethylene Glycol 3350) 17 Gm Powd.pack 17 Gm PO BID PRN Discharge Diet: Other Diet (Pur??ed diet with nectar thick liquids) Activity as Tolerated: No (Up with assistance) Chief Complaint and Reason for Visit Chief Complaint Respiratory Problems Reason for Visit [id number] Chief Complaint SEPTIC SHOCK;UTI;PNE UMONIA;N/V;DEHYDRATION Reason for Visit Dementia Anticoagulant long-term use CITLALY (acute kidney injury) Dementia Counseling regarding end of life decision making Prophylactic measure CITLALY (acute kidney injury) Thrombocytopenia Dysphagia Level of consciousness decreased Severe dementia Dysphagia Assessments No Assessments Information Available Additional Source Comments This clinical document has been generated using Yub software that has been certified by the Office of the National Coordinator for Health Information Technology (ONC 15.99.04.3023.Diam.31.00.0.219202) and the National Committee for Stove Mounter (NCQA, as an eMeasure certified technology). FOR RECORDS PERTAINING TO PATIENTS WHO ARE OR HAVE BEEN ENROLLED IN A CHEMICAL D EPENDENCY/SUBSTANCE ABUSE PROGRAM, SOME INFORMATION MAY BE OMITTED. This clinica l summary was aggregated from multiple sources. Caution should be exercised in using it in the provision of clinical care. This summary normalizes information from multiple sources, and as a consequence, information in this document may ma terially change the coding, format and clinical context of patient data. In francesco tion, data may be omitted in some cases. CLINICAL DECISIONS SHOULD BE BASED ON T HE PRIMARY CLINICAL RECORDS. [facility]. provides no warranty or guara ntee of the accuracy or completeness of information in this document.The followi ng information is based on time limited clinical information
--- OUTSIDE RECORDS SUMMARY | 2019-08-08 14:01 | XMS REPORT | Clinical Summary ---
Author Author [facility] Organization [facility] Address Unknown Phone Unavailable Care Team Providers Care Product Manufacturing Professional Name Role Phone Pravin Proctor PCP Allergies No Known Allergies Medications End Date Status Medication Sig Dispensed Refills Start Date Active latanoprost (XALATAN) instill 1 30 0 /2 0.005 % ophthalmic drop by 5 solution ophthalmic route every day into affected eye(s) in the evening Active memantine (NAMENDA) 10 MG take 1 tablet 30 0 tablet by oral route 5 2 times every day Active donepezil (ARICEPT) 10 MG Take 10 mg by 0 tablet mouth nightly. Active rivaroxaban (XARELTO) 15 Take 1 tablet 90 tablet 1 mg tablet (15 mg total) 6 by mouth daily with dinner. Active Problems Problem Noted Date Atrial fibrillation 02/13/2013 Coronary atherosclerosis 02/13/2013 Overview: ICD-10 conversion Restless legs syndrome (RLS) 02/13/2013 Alzheimer's disease 02/13/2013 Right-sided carotid artery disease Anticoagulant long-term use Resolved Problems Problem Noted Date Resolved Date Hypertension 01/16/2016 Family History * Patient is adopted Relation Name Status Comments Father Cause of was unknown at age . Mother Cause of was CAD at age 74. (Age 74) Social History Date Tobacco Use Types Packs/Day Years Used Never Smoker Drinks/Week oz/Week Comments Alcohol Use No Sex Assigned at Date Recorded Not on file Industry Job Start Date Occupation Not on file Not on file Not on file Travel End Travel History Travel Start No recent travel history available. Last Filed Vital Signs Reading Time Taken Comments Vital Sign 118/76 01/16/2016 2:08 PM CDT Blood Pressure 111 01/16/2016 2:08 PM CDT reg Pulse 36.3 C (97.4 F) 04/12/2013 1:17 PM SANITATION SUPERINTENDENT Temperature - - Respiratory Rate - - Oxygen Saturation - - Inhaled Oxygen Concentration 67.8 kg (149 lb 6.4 oz) 01/16/2016 2:08 PM CDT Weight 172.7 cm (5' 8") 01/16/2016 2:08 PM CDT Height 22.72 01/16/2016 2:08 PM CDT Body Mass Index Plan of Treatment Health Maintenance Due Date Last Done Comments Td # 1935 Zoster Vaccine# (1 of 2) 1983 Fall Risk Assessment # 1998 Influenza Vaccine (#1) 2019 Results Not on filefrom Last 3 Months Insurance Type Payer Benefit Subscriber ID Effective Phone Address Plan / Dates Group Medicare MEDICARE MEDICARE xxxxxxxxxx 1998-P [place] PART A B [facility] OUT OF xxxxxxxxxxxx 4-P [facility] Azeem Russell Personal/F Self 1935 [address] (Home) [place] [id number] Advance Directives For more information, please contact: [phone] Patient Grab Driver Explanation Type Date Recorded Advance Directives and Living Will Power of Flame Cutter
--- OUTSIDE RECORDS SUMMARY | 2019-08-08 14:01 | XMS REPORT | Encounter Summary ---
Author Author [facility] Organization [facility] Address Unknown Phone Unavailable Care Team Providers Care Manager Commercial Name Role Phone Pravin Proctor PCP Reason for Visit * Reason Comments Medication Refill Encounter Details Care Team Description Date Type Department Josy Lino RN Medication Refill 04/26/2016 Telephone [facility] [address] [place] [address] Social History Date Tobacco Use Types Packs/Day Years Used Never Smoker Drinks/Week oz/Week Comments Alcohol Use No Sex Assigned at Date Recorded Not on file Industry Job Start Date Occupation Not on file Not on file Not on file Travel End Travel History Travel Start No recent travel history available. documented as of this encounter Miscellaneous Notes * Telephone Encounter - Josy Lino RN - 04/27/2016 8:43 AM CORNER BRACE BLOCK MACHINE OPERATOR Mailed rx and lab order for BMP ER BRACE BLOCK MACHINE OPERATOR * Telephone Encounter - Josy Lino RN - 04/26/2016 10:39 AM CORNER BRACE BLOCK MACHINE OPERATOR Patients calling [facility] cardiovascular [facility] I called her back and said that the only rx we provide would be xarelto. She v/u and states she would like a 90 day rx. I explained that we r equire blood work every 6 months. She v/u. Placed xarelto Rx for JHO signature. ER BRACE BLOCK MACHINE OPERATOR documented in this encounter Plan of Treatment Order Schedule Name Type Priority Associated Diag noses Expected: 06/26/2016, Expires: 7 Basic Metabolic Panel Lab Routine Chronic anticoagulation documented as of this encounter Visit Diagnoses Diagnosis Chronic anticoagulation Encounter for long-term (current) use o f anticoagulants documented in this encounter
--- OUTSIDE RECORDS SUMMARY | 2019-08-08 14:01 | XMS REPORT | Encounter Summary ---
Author Author [facility] Organization [facility] Address Unknown Phone Unavailable Care Team Providers Care Credit Rating Checker Name Role Phone Pravin Proctor PCP Encounter Details Care Team Description Date Type Department Doyle, Default Authenticator [address] [place] [address] 06/19/2016 [facility] Informat ion Management [address] [place] [address] Social History Date Tobacco Use Types Packs/Day Years Used Never Smoker Drinks/Week oz/Week Comments Alcohol Use No Sex Assigned at Date Recorded Not on file Industry Job Start Date Occupation Not on file Not on file Not on file Travel End Travel History Travel Start No recent travel history available. documented as of this encounter Plan of Treatment Not on filedocumented as of this encounter Visit Diagnoses Not on filedocumented in this encounter
--- OUTSIDE RECORDS SUMMARY | 2019-08-08 14:01 | XMS REPORT | Encounter Summary ---
Author Author [facility] Organization [facility] Address Unknown Phone Unavailable Care Team Providers Care Hot Box Checker Name Role Phone Pravin Proctor PCP Encounter Details Care Team Description Date Type Department Doyle, Default Authenticator [address] [place] [address] 06/19/2016 [facility] Informat ion Management [address] [place] [address] Social History Date Tobacco Use Types Packs/Day [...]
--- OUTSIDE RECORDS SUMMARY | 2019-08-08 14:01 | XMS REPORT | Encounter Summary ---
Author Author [facility] Organization [facility] Address Unknown Phone Unavailable Care Team Providers Care Writer Producer Name Role Phone Pravin Proctor PCP Encounter Details Care Team Description Date Type Department Reid Stock MD [address] [place], [place] [id number] 12/31/2015 Documentation [facility] [address] [place] [address] Social History Date Tobacco Use Types Packs/Day Years Used Never Assessed Sex Assigned at Date Recorded Not on file Industry Job Start Date Occupation Not on file Not on file Not on file Travel End Travel History Travel Start No recent travel history available. documented as of this encounter Plan of Treatment Not on filedocumented as of this encounter Procedures Comments Procedure Name Priority Date/Time Associated Diag nosis THYROID STIMULATING Routine 12/31/2015 HORMONE LIPID PANEL Routine 12/31/2015 HEMOGLOBIN A1C Routine 12/31/2015 GLUCOSE Routine 12/31/2015 COMPREHENSIVE METABOLIC Routine 12/31/2015 PANEL CBC AND DIFF (MANUAL DIFF Routine 12/31/2015 IF NECESSARY) documented in this encounter Results * Lipid Panel (12/31/2015) Triglycerides 50 40 - 160 mg/dL HDL Cholesterol 46 35 - 70 mg/dL LDL Cholesterol 132 mg/dL Cholesterol/HDL 4.1 Ratio LDL INTERPRETATION Non-HDL Cholesterol Cholesterol 188 Specimen Blood * Comprehensive Metabolic Panel (12/31/2015) Pathologist [facility] Alk Phos Total 59 Albumin Serum 4.1 Calcium 8.8 8.7 - 10.7 mg/dL Glucose 85 mg/dL Blood Urea 14 4 - 21 mg/dL Nitrogen Protein Total 6.6 g/dL Serum Bilirubin Total 1.0 mg/dL Aspartate 16 14 - 40 U/L Aminotransferas e Potassium 3.9 3.4 - 5.3 mmol/L Sodium 138 137 - 147 mmol/L Chloride 103 99 - 108 mmol/L Creatinine 1.0 0.6 - 1.3 mg/dL Alanine 9 (A) 10 - 40 U/L Aminotransferas e Carbon Dioxide 30 (A) 13 - 22 mmol/L BUN/Creatinine 14.4 Ratio Globulin, Total 2.5 A/G Ratio 1.7 eGFR If NonAfricn Am eGFR If Africn 79 Am Anion Gap 30 mmol/L Osmolality 275 Serum Ionized Calcium Specimen Blood * CBC and Diff (manual diff if necessary) (12/31/2015) Pathologist [facility] RBC 4.69 Hematology Comments WBC 5.61 Hemoglobin 15.2 13.5 - 17.5 g/dL Hematocrit 45 41 - 53 % MCV 96.2 82.0 - 108.0 fL MCH 32.4 26.0 - 34.0 pg MCHC 34 30 - 37 g/dL % Neutrophils 68 46 - 78 % % Imm Grans %Lymphocytes 24 18 - 52 % %Monocytes 7 3 - 10 % %Eosinophils 1 0 - 6 % %Basophils 0 0 - 3 % Platelet Count 110 (A) 150 - 399 K/L # Granulocytes Immature Grans (Abs) Neutrophils 3.83 Absolute # Lymphocytes 1.32 (A) 1.40 - 2.90 /L # Monocytes 0.40 0.20 - 0.80 /L # Eosinophils 0.10 (A) 0.20 - 0.70 /L # Basophils 0.00 0.00 - 0.20 /L Nucleated RBCs 0 - 2 /100 RDW 13.5 11.5 - 14.5 % Specimen Blood * Thyroid Stimulating Hormone (12/31/2015) Pathologist [facility] Thyroid 1.64 0.41 - 5.90 uIU/mL Stimulating Hormone Specimen Blood * Glucose (12/31/2015) Glucose 114 mg/dL Specimen Blood * Hemoglobin A1C (12/31/2015) HEMOGLOBIN A1C 5.6 5.6 Specimen Blood documented in this encounter Visit Diagnoses Not on filedocumented in this encounter
--- OUTSIDE RECORDS SUMMARY | 2019-08-08 14:01 | XMS REPORT | Encounter Summary ---
Author Author [facility] Address Unknown Phone Unavailable Care Team Providers Care Employee Development Manager Name Role Phone Pravin Proctor PCP Encounter Details Care Team Description Date Type Department Doyle, Default Authenticator [address] [place] [address] 06/19/2016 [facility] Informat ion Management [address] [place] [address] Social History Date Tobacco Use Types Packs/Day [...]
--- OUTSIDE RECORDS SUMMARY | 2019-08-08 14:01 | XMS REPORT | Encounter Summary ---
Author Author [facility] Organization [facility] Address Unknown Phone Unavailable Care Team Providers Care Rolling Down Machine Operator Name Role Phone Pravin Proctor PCP Reason for Referral * Diagnostic Imaging (Routine) Referred By Contact Referred To Contact Status Reason Specialty Diagnoses / Procedures Katya Stock MD [address] [place] [address] [facility] Cv Ultrasound [address] [place] [address] Closed Cardiology Diagnoses Carotid artery stenosis, unspecified laterality P rocedures CV US Carotid Duplex bilat Reason for Visit * Reason Comments carotid doppler requests order. Encounter Details Care Team Description Date Type Department Tanna Boggs RN (requests order.) 11/19/2015 Telephone [facility] [address] [place], [place] [id number] Social History Date Tobacco Use Types Packs/Day Years Used Never Assessed Sex Assigned at Date Recorded Not on file Industry Job Start Date Occupation Not on file Not on file Not on file Travel End Travel History Travel Start No recent travel history available. documented as of this encounter Miscellaneous Notes * Addendum Note - Josy Lino RN - 11/24/2015 10:19 AM CDT Addended by: JOSY LINO on: 11/24/2015 10:19 AM Modules accepted: Orders * Telephone Encounter - Josy Lino RN - 11/24/2015 10:18 AM CDT Entered order. Called and spoke to Sydni and let her know this had been done. * Telephone Encounter - Katya Stock MD - 11/20/2015 4:09 PM CDT Yes, annual carotid doppler order OK * Telephone Encounter - Tanna Boggs RN - 11/19/2015 2:44 PM CDT Received voicemail from Sydni Russell, calling for pt and his . Asking for annual carotid doppler order for pt and his , so she can schedule same day a t 01/12/16 office visit. Routed message to [facility]. She would like call back . documented in this encounter Plan of Treatment Not on filedocumented as of this encounter Results * CV US Carotid Duplex bilat (01/16/2016 1:52 PM CDT) Specimen Impressions Performed At Moderate atherosclerosis without evidence of hem odynamically significant [facility] stenosis in either carotid artery. Both vertebral arteries are patent with antegrade flow. No significant change compared to study dated 12/26/2014. Eva Nicole M.D. (Electronically Signed) Final Date: 16 January 2016 14:34 Narrative Performed At [facility] Carotid Duplex Report [facility] Name: TENISHA RUSSELL Date: 01/16/2016 13:33 Chart# [id number] : 1935 Location: [facility] OP Sono: russ bell Age: 80 Gender: M Referring:KATYA MERCHANT Indication:Carotid artery stenosis, unspecified laterality, Occlusion and stenosis of bilateral carotid arteries [id number] Right BP: 122 / 70 Velocity (cm/s) Velocity (cm/s) Left BP:124 / 72 Syst/Diast Syst/Diast 63 /16 Distal ICA74 / 30 61 /20 Mid ICA 67 / 31 48 /14 Prox ICA 59 / 19 39 /12 Bulb 65 / 17 41 /12 Distal CCA85 / 18 54 /10 Prox CCA 69 / 16 74 ECA 138 RIGHT LEFT Antegrade Vertebral Antegrade 39 52 Rt Subclavian Bret:57 Lt Subclavian Bret:63 1.2 ICA/CCA 0.7 Findings: Right Carotid: Mild-moderate atherosclerotic plaque in the carotid bulb extending into both the ICA and EC A. Left Carotid: Moderate mixed densi ty plaque in the carotid bulb extending into both the ICA and ECA. Procedure Note Interface, External Ris In - 01/16/2016 2:35 PM CDT Carotid Duplex Report [facility] Name: TENISHA RUSSELL Date: 01/16/2016 13:33 Chart# [id number] : 1935 Location: [facility] OP Sono: maria teresayolette Age: 80 Gender: M Referring:KATYA MERCHANT Indication:Carotid artery stenosis, unspecified laterality, Occlusion and stenosis of bilateral carotid arteries [id number] Right BP: 122 / 70 Velocity (cm/s) Velocity (cm/s) Left BP:124 / 72 Syst/Diast Syst/Diast 63 /16 Distal ICA74 / 30 61 /20 Mid ICA 67 / 31 48 /14 Prox ICA 59 / 19 39 /12 Bulb 65 / 17 41 /12 Distal CCA85 / 18 54 /10 Prox CCA 69 / 16 74 ECA 138 RIGHT LEFT Antegrade Vertebral Antegrade 39 52 Rt Subclavian Bret:57 Lt Subclavian Bret:63 1.2 ICA/CCA 0.7 Findings: Right Carotid: Mild-moderate atherosclerotic plaque in the carotid bulb extending into both the ICA and ECA. Left Carotid: Moderate mixed density plaque in the carotid bulb extending into both the ICA and ECA. IMPRESSION Moderate atherosclerosis without evidence of hemodynamically significant stenosis in either carotid artery. Both vertebral arteries are patent with antegrade flow. No significant change compared to study dated 12/26/2014. Eva Nicole M.D. (Electronically Signed) Final Date: 16 January 2016 14:34 Performing Organization Address City/State/Zipcode Ph one Number [facility] documented in this encounter Visit Diagnoses Diagnosis Carotid artery stenosis, unspecified la terality documented in this encounter
--- OUTSIDE RECORDS SUMMARY | 2019-08-08 14:01 | XMS REPORT | Encounter Summary ---
Author Author [facility] Organization [facility] Address Unknown Phone Unavailable Care Team Providers Care High School Social Studies Teacher Name Role Phone Pravin Proctor PCP Encounter Details Care Team Description Date Type Department Georgette Leger MA 01/23/2016 Documentation [facility] [address] [place] [address] Social History Date Tobacco Use Types Packs/Day [...]
--- OUTSIDE RECORDS SUMMARY | 2019-08-08 14:01 | XMS REPORT | Encounter Summary ---
Author Author [facility] Organization [facility] Address Unknown Phone Unavailable Care Team Providers Care Transmission Repairer Name Role Phone Pravin Proctor PCP Encounter Details Care Team Description Date Type Department Emergency, PhysicianMD 06/19/2016 Emergency [facility] [address] [place] [address] Social History Date Tobacco Use Types Packs/Day Years Used Never Smoker Drinks/Week oz/Week Comments Alcohol Use No Sex Assigned at Date Recorded Not on file Industry Job Start Date Occupation Not on file Not on file Not on file Travel End Travel History Travel Start No recent travel history available. documented as of this encounter Medications at Time of Discharge Start Date End Date Medication Sig Dispensed Refills donepezil (ARICEPT) 10 MG Take 10 mg by 0 tablet mouth nightly. 12/26/2014 latanoprost (XALATAN) instill 1 30 0 0.005 % ophthalmic drop by solution ophthalmic route every day into affected eye(s) in the evening 12/26/2014 memantine (NAMENDA) 10 MG take 1 tablet 30 0 tablet by oral route 2 times every day 04/26/2016 rivaroxaban (XARELTO) 15 Take 1 tablet 90 tablet 1 mg tablet (15 mg total) by mouth daily with dinner. documented as of this encounter Plan of Treatment Not on filedocumented as of this encounter Visit Diagnoses Not on filedocumented in this encounter
--- OUTSIDE RECORDS SUMMARY | 2019-08-08 14:01 | XMS REPORT | Encounter Summary ---
Author Author [facility] Organization [facility] Address Unknown Phone Unavailable Care Team Providers Care Apartment House Manager Name Role Phone Pravin Proctor PCP Reason for Referral * Diagnostic Imaging (Routine) Referred By Contact Referred To Contact Status Reason Specialty Diagnoses / Procedures Katya Stock MD [address] [facility] [address] [place] [address] Closed Diagnoses Atrial fibrillation, unspecified P rocedures Electrocardiogram (ECG) Reason for Visit * Reason Comments Coronary Artery Disease Atrial fibrillation weight loss Encounter Details Care Team Description Date Type Department Katya Stock MD [address] [facility] [address] [place] [address] [phone] Post PTCA (Primary Dx); Atrial fibrillation, unspecified; Alzheimer's disease; Essential hypertension; Atherosclerosis of [place] coronary artery without angina pectoris; Right-sided carotid artery disease (HCC); Anticoagulant long-term use 01/16/2016 Office Visit [facility] [address] [facility] [address] [place], [place] [address] Social History Date Tobacco Use Types Packs/Day Years Used Never Smoker Drinks/Week oz/Week Comments Alcohol Use No Sex Assigned at Date Recorded Not on file Industry Job Start Date Occupation Not on file Not on file Not on file Travel End Travel History Travel Start No recent travel history available. documented as of this encounter Last Filed Vital Signs Reading Time Taken Comments Vital Sign 118/76 01/16/2016 2:08 PM CDT Blood Pressure 111 01/16/2016 2:08 PM CDT reg Pulse - - Temperature - - Respiratory Rate - - Oxygen Saturation - - Inhaled Oxygen Concentration 67.8 kg (149 lb 6.4 oz) 01/16/2016 2:08 PM CDT Weight 172.7 cm (5' 8") 01/16/2016 2:08 PM CDT Height 22.72 01/16/2016 2:08 PM CDT Body Mass Index documented in this encounter Progress Notes * Katya Stock MD - 01/16/2016 2:12 PM CDT [facility] Appointment Date: 01/16/2016 Pravin Proctor MD [facility] [address] RE: Tenisha Russell : 1935 Visit provider: Katya Stock MD Dear Pravin Proctor MD, I had the pleasure of seeing Tenisha Russell in the office today. He is a 80 y.o. male and presents with the following chief complaints: Coronary Artery Disease; Atrial fibrillation; and weight loss HPI: 80 yo male with dementia (AD) and permanent atrial fibrillation on ant icoagulation with Xarelto. He presented to the clinic for followup. The patient was accompanied by his daughter and his . Per the patients , he has o ccasional recent falls. He failed warfarin with very labile INRs. Doing well on NOAC. The patient denies having any chest pain, shortness of air, or heart palpi tations. Carotid Duplex today 01/16/16 Right Carotid: Mild-moderate atherosclerotic plaque in the carotid bulb extending into both the ICA and ECA. Left Carotid: Moderate mixed density plaque in the carotid bulb extending into b oth the ICA and ECA. IMPRESSION Moderate atherosclerosis without evidence of hemodynamically significant stenosi s in either carotid artery. Both vertebral arteries are patent with antegrade flow. No significant change compared to study dated 12/26/2014. Problem List: Arrhythmia Dysrhythmia -Atrial fibrillation-Permanent 09/14/2002 CAD PCI LM normal, left CX is also normal. The LAD had 80% proximal s tenosis with a 50% diagonal lesion. The right coronary artery was subtotally occ luded with a 99% proximal stenosis. PCI with a 4 mm stent in the RCA dilating it with a 4.5 mm balloon. The proximal LAD was stented with a 3.5 mm stent. The 50% diagonal stenosis was not dilated. 08/04/2010 Dyslipidemia Dyslipidemia 09/30/2010 Echo Normal left ventricular systolic function, with an estimated ej ection fraction of 60%. Normal mitral valve with mild regurgitation. Compared to the previous study on 09/13/2002, the inferior and inferolateral hypokinesis is no longer noted. 11/08/2013 Echo Carotid duplex There is a stenosis, in the range of 50-69%, in the left bulb and proximal ICA. Mild atherosclerotic plaque in the right carotid system with no evidence for a significant stenosis. Both vertebral arteries are patent with antegrade flow. Compared to the previous study dated 08/04/2012, flow velocities in the left ICA are modestly increased and now consistent with a 50- 69% stenosis. 09/30/2010 EF Echo EF: 60 HTN Hypertension PVD Carotid Disease 10/28/2010 PVD Cerebral angiography A near occlusion of the right internal carot id artery at its origin due to a 99% stenosis with a "string sign". There is only minimal antegrade fill ing of the cervical right ICA seen with no filling of the intracranial ICA , MCA or SHAE during the right common carotid injections. A 40% stenosis of the left I CA origin due to focal atherosclerotic plaque. No stenosis of either vertebral a rtery origin. The right MCA and right SHAE territories are supplied from anterior communicating artery and posterior communicating artery collaterals 10/29/2010 PVD Carotid endarterectomy Right Carotid Endarterectomy- An arterioto my was made in the right common carotid artery and extended into the internal ve ssel with internal carotid artery vessel which had been gently occluded with a v ascular clamp. A complete endarterectomy was carried out. Tobacco Abuse Former Patient Active Problem List Diagnosis SNOMED CT(R) Atrial fibrillation ATRIAL FIBRILLATION Coronary atherosclerosis CORONARY ATHEROSCLEROSIS Restless legs syndrome (RLS) RESTLESS LEGS Alzheimer's disease ALZHEIMER'S DISEASE Right-sided carotid artery disease DISORDER OF CAROTID ARTERY Anticoagulant long-term use H/O: ANTICOAGULANT THERAPY Past Medical History Diagnosis Date Alzheimer's disease 02/13/2013 Anticoagulant long-term use Atrial fibrillation 02/13/2013 BPH (benign prostatic hypertrophy) Chronic anxiety Coronary atherosclerosis 02/13/2013 Former tobacco use Hypertension Restless legs syndrome (RLS) 02/13/2013 Right-sided carotid artery disease Past Surgical History Procedure Laterality Date Cataract extraction, bilateral 2012 Parathyroidectomy 2002 Tonsillectomy adenoidectomy Endarterectomy carotid Right 10/29/2010 Common carotid and extending into ICA. Coronary angioplasty with stents 09/14/2002 POBA and stent to RCA. Stent to pLAD. Final Medications: Current Outpatient Prescriptions Medication Sig Dispense Refill donepezil (ARICEPT) 10 MG tablet Take 10 mg by mouth nightly. latanoprost (XALATAN) 0.005 % ophthalmic solution instill 1 drop by ophthalm ic route every day into affected eye(s) in the evening 30 0 memantine (NAMENDA) 10 MG tablet take 1 tablet by oral route 2 times every d ay 30 0 rivaroxaban (XARELTO) 15 mg Tab tablet One daily 30 11 No current facility-administered medications for this visit. No Known Allergies Family History Problem Relation Age of Onset Adopted: Yes Social History: Social History Substance Use Topics Smoking status: Never Smoker Smokeless tobacco: None Alcohol use No Exercise level: Regular Activity: Cycles Duration: Frequency: Four times per week Diet: Regular Caffeine: Yes Caffeine frequency: Daily Caffeine amount: 1 cup Caffeine type: Coffee Review of Systems Constitution: Negative for fever, malaise/fatigue and night sweats. HENT: Negative for nosebleeds. Cardiovascular: Negative for chest pain, claudication, cyanosis, dyspnea on exer tion, irregular heartbeat, leg swelling, near-syncope, orthopnea, palpitations, paroxysmal nocturnal dyspnea and syncope. Respiratory: Positive for snoring. Negative for cough, hemoptysis, shortness of breath, sleep disturbances due to breathing and wheezing. Endocrine: Positive for cold intolerance. Negative for polydipsia. Hematologic/Lymphatic: Bruises/bleeds easily. Skin: Negative for rash. Musculoskeletal: Negative for joint pain and myalgias. Gastrointestinal: Negative for dysphagia, hematochezia, nausea and vomiting. Genitourinary: Positive for hematuria. Neurological: Positive for disturbances in coordination and loss of balance. Neg ative for brief paralysis, excessive daytime sleepiness, dizziness, focal weakne ss, light-headedness and numbness. Psychiatric/Behavioral: Negative for depression. All other systems reviewed and are negative. Vital Signs 01/16/16 1408 BP: 118/76 Pulse: 111 Weight: 67.8 kg (149 lb 6.4 oz) Height: 1.727 m (5' 8") BMI: Body mass index is 22.72 kg/(m^2). Physical Exam Constitutional: He is oriented to person, place, and time. He appears well-devel oped. Eyes: Conjunctivae are normal. Neck: Neck supple. No JVD present. No thyromegaly present. Cardiovascular: Normal rate and normal heart sounds. Exam reveals no gallop and no friction rub. No murmur heard. Disoriented to time and year and place. AFIB with controlled rates. Moderate dementia, Alzheimer's. Pulmonary/Chest: Effort normal and breath sounds normal. No respiratory distress . He has no wheezes. He has no rales. Abdominal: Soft. Bowel sounds are normal. He exhibits no distension. There is no tenderness. Musculoskeletal: He exhibits no edema. Neurological: He is alert and oriented to person, place, and time. Skin: Skin is warm and dry. No rash noted. Psychiatric: He has a normal mood and affect. Vitals reviewed. CHOLESTEROL Date Value 12/31/2015 188 08/04/2010 198 MG/DL 09/13/2002 191 MG/DL HDL CHOLESTEROL Date Value 12/31/2015 46 mg/dL 08/04/2010 41 MG/DL 09/13/2002 36 MG/DL (L) TRIGLYCERIDES Date Value 12/31/2015 50 mg/dL 08/04/2010 50 MG/DL 09/13/2002 86 MG/DL LDL CHOLESTEROL Date/Time Value Ref Range Status 12/31/2015 132 mg/dL Final 08/04/2010 04:20 PM 147 (H) 0 - 99 MG/DL Final 09/13/2002 04:20 AM 138 (H) 0 - 99 MG/DL Final EKG: AFIB at 83 bpm Encounter Diagnoses Name Primary? Atrial fibrillation, unspecified Alzheimer's disease Essential hypertension Atherosclerosis of [place] coronary artery without angina pectoris Right-sided carotid artery disease Anticoagulant long-term use Post PTCA Yes Plan: Cont current meds No further testing needed now Defer Urine Culture to PCP. Cont Xarelto Thank you for allowing me to participate in [facility]. If I can be of any further assistance, please do not hesitate to contact me. Sincerely, Katya Stock MD documented in this encounter Miscellaneous Notes * Addendum Note - Jessie Dolye RN - 01/16/2016 3:19 PM CDT Addended by: JESSIE DOYLE on: 01/16/2016 03:19 PM Modules accepted: Orders documented in this encounter Plan of Treatment Not on filedocumented as of this encounter Procedures Comments Procedure Name Priority Date/Time Associated Diag nosis ECG Routine 01/16/2016 Atrial fibrilla tion, 2:07 PM CDT unspecified documented in this encounter Results * Electrocardiogram (ECG) (01/16/2016 2:07 PM CDT) Specimen Narrative Performed At [facility] Test Date: 2016-01-16 Pat Name: TENISHA PARK [place]ALL Department: [facility] Room: Gender: Male Educational Institution President: [id number] : 1935 Requested By: KATYA JAVED Order Number: [id number] Reading MD: Katya Welch Measurements Intervals [place] Rate: 111 P: AK: QRS: -3 QRSD: 84 T: 68 QT: 352 QTc: 479 Interpretive Statements ATRIAL FIBRILLATION, V-RATE 72-135 PAIRED VENTRICULAR PREMATURE COMPLEXES CONSIDER ANTEROSEPTAL INFARCT BORDERLINE PROLONGED QT INTERVAL No previous ECG available for compariso n Electronically Signed On 01-21-2016 15:3 6:50 CDT by Katya Welch Procedure Note Interface, External Ris In - 01/21/2016 3:[address] PM [address] [facility] Test Date: 2016-01-16 [facility] Department: [facility] Room: Gender: Male Educational Institution President: [id number] : 1935 Requested By: KATYA JAVED Order Number: [id number] Reading MD: Katya Welch Measurements Intervals [place] Rate: 111 P: AK: QRS: -3 QRSD: 84 T: 68 QT: 352 QTc: 479 Interpretive Statements ATRIAL FIBRILLATION, V-RATE 72-135 PAIRED VENTRICULAR PREMATURE COMPLEXES CONSIDER ANTEROSEPTAL INFARCT BORDERLINE PROLONGED QT INTERVAL No previous ECG available for comparison Electronically Signed On 01-21-2016 15:36:50 CDT by Katya Welch Performing Organization Address City/State/Zipcode Ph one Number [email or web address] documented in this encounter Visit Diagnoses Diagnosis Atrial fibrillation, unspecified Alzheimer's disease (HCC) Alzheimer's disease Essential hypertension Unspecified essential hypertension Atherosclerosis of [place] coronary sage ry without angina pectoris Right-sided carotid artery disease (HCC ) Anticoagulant long-term use Encounter for long-term (current) use o f anticoagulants Post PTCA Postsurgical percutaneous transluminal coronary angioplasty status documented in this encounter
--- OUTSIDE RECORDS SUMMARY | 2019-08-08 14:01 | XMS REPORT | Encounter Summary ---
Author Author [facility] Organization [facility] Address Unknown Phone Unavailable Care Team Providers Care Colon And Rectal Surgeon Name Role Phone Pravin Proctor PCP Reason for Visit * Reason Comments Xarelto Encounter Details Care Team Description Date Type Department Dwight Veloz LPN Xarelto 06/10/2016 Telephone [facility] [address] [place] [address] Social History Date Tobacco Use Types Packs/Day [...] Telephone Encounter - Josy Lino RN - 06/14/2016 2:22 PM CAR SUPPLIER MD Dwight Quinteros LPN 3 days ago Make sure this rec about me suggesting he not be on any warfarin or NOACs. Bu t instead take asa 81 mg daily. I spoke with his daughter Sydni, but please pas s this along to his PCP Pravin Proctor too. (Routing comment) Called Dr. Proctor's office at [phone] and spoke to Anderson. There is not a emilia se available and dr. Proctor is with patients. She requested a fax. [phone] . Generated letter and sent to PCP. SUPPLIER * Telephone Encounter - Reid Stock MD - 06/11/2016 6:14 PM CAR SUPPLIER I spoke with Sydni his daughter; stay off Xarelto and all other OACs. SUPPLIER * Telephone Encounter - Dwight Veloz LPN - 06/10/2016 10:58 AM CAR SUPPLIER Patient's daughter Sydni called and said the patient has been falling more late ly. Patient had a fall 4 weeks ago and has been off of the Xarelto since the fal l due to a subdural hematoma. The patient is scheduled for a CAT scan tomorrow. Sydni would like O to call her @[phone] and or the PCP Pravin Proctor @ to discuss if the patient should be on any blood thinners due to having the A-Fib. JHO, Patient's daughter would like for you to call her and or the PCP to discuss treatment for A-fib. SUPPLIER documented in this encounter Plan of Treatment Not on filedocumented as of this encounter Visit Diagnoses Not on filedocumented in this encounter
--- OUTSIDE RECORDS SUMMARY | 2019-08-08 14:01 | XMS REPORT | Encounter Summary ---
Author Author [facility] Organization [facility] Address Unknown Phone Unavailable Care Team Providers Care Final Application Reviewer Name Role Phone Pravin Proctor PCP Reason for Referral * Diagnostic Imaging (Routine) Referred By Contact Referred To Contact Status Reason Specialty Diagnoses / Procedures Katya Stock MD [address] [place] [address] [facility] Ultrasound [address] [place] [address] Closed Cardiology Diagnoses Carotid artery stenosis, unspecified laterality P rocedures CV US Carotid Duplex bilat Reason for Visit * Diagnostic Imaging (Routine) Referred By Contact Referred To Contact Status Reason Specialty Diagnoses / Procedures Katya Stock MD [address] [place] [address] [facility] Ultrasound [address] [place] [address] Closed Cardiology Diagnoses Carotid artery stenosis, unspecified laterality P rocedures CV US Carotid Duplex bilat Encounter Details Care Team Description Date Type Department Katya Stock MD [address] [place] [address] [phone] Carotid artery stenosis, unspecified lat erality 01/16/2016 [facility] [address] [address] Social History Date Tobacco Use Types Packs/Day [...] by oral route 2 times every day 01/16/2016 04/26/2016 rivaroxaban (XARELTO) 15 Take 1 tablet 90 tablet 1 mg Tab tablet (15 mg total) by mouth daily with dinner. documented as of this encounter Plan of Treatment Not on filedocumented as of this encounter Procedures Comments Procedure Name Priority Date/Time Associated Diag nosis CV US CAROTID DUPLEX Routine 01/16/2016 Carotid a rtery stenosis, BILAT 1:52 PM CDT unspecified lateral ity documented in this encounter Results * CV US Carotid [...] Name: TENISHA RUSSELL Date: 01/16/2016 13:33 Chart# [id number] : 1935 Location: [facility] OP Sono: russ bell Age: 80 Gender: [...] Name: TENISHA RUSSELL Date: 01/16/2016 13:33 Chart# [id number] : 1935 Location: [facility] OP Sono: stephanie Age: 80 Gender: M Referring:KATYA MERCHANT Indication:Carotid [...]
--- OUTSIDE RECORDS SUMMARY | 2019-08-08 14:01 | XMS REPORT | Encounter Summary ---
Author Author [facility] Organization [facility] Address Unknown Phone Unavailable Care Team Providers Care Plate Take Out Worker Name Role Phone Pravin Proctor PCP Encounter Details Care Team Description Date Type Department Shayy Davis RN 01/12/2016 Abstract [facility] [address] [facility] [address] [place] [address] Social History Date Tobacco Use Types Packs/Day Years Used Never Assessed Sex Assigned at Date Recorded Not on file Industry Job Start Date Occupation Not on file Not on file Not on file Travel End Travel History Travel Start No recent travel history available. documented as of this encounter Plan of Treatment Not on filedocumented as of this encounter Visit Diagnoses Diagnosis Right-sided carotid artery disease (HCC ) Essential hypertension Unspecified essential hypertension Anticoagulant long-term use Encounter for long-term (current) use o f anticoagulants documented in this encounter
--- OUTSIDE RECORDS SUMMARY | 2019-08-08 14:01 | XMS REPORT | Encounter Summary ---
Author Author [facility] Organization [facility] Address Unknown Phone Unavailable Care Team Providers Care Mixer Diamond Powder Name Role Phone Pravin Proctor PCP Reason for Referral * Diagnostic Imaging (Routine) Referred By Contact Referred To Contact Status Reason Specialty Diagnoses / Procedures Reid Stock MD [address] [facility] [address] [place] [address] Closed Diagnoses Atrial fibrillation, unspecified type (HCC) P rocedures Electrocardiogram (ECG) Encounter Details Care Team Description Date Type Department Aliyah Daugherty RN Atrial fibrillation, unspecified type (H CC) (Primary Dx) 04/01/2016 Orders Only [facility] [address] [facility] [address] [place] [address] Social History Date Tobacco Use Types Packs/Day Years Used Never Smoker Drinks/Week oz/Week Comments Alcohol Use No Sex Assigned at Date Recorded Not on file Industry Job Start Date Occupation Not on file Not on file Not on file Travel End Travel History Travel Start No recent travel history available. documented as of this encounter Plan of Treatment Order Schedule Name Type Priority Associated Diag noses Ordered: 04/01/2016 Electrocardiogram (ECG) ECG Routine Atrial Fibrillation, Unspecified Type (Hcc) documented as of this encounter Visit Diagnoses Diagnosis Atrial fibrillation, unspecified type ( HCC) documented in this encounter
--- OUTSIDE RECORDS SUMMARY | 2019-08-08 14:01 | XMS REPORT | Encounter Summary ---
Author Author [facility] Organization [facility] Address Unknown Phone Unavailable Care Team Providers Care Truck Driver Rubbish Collector Name Role Phone Pravin Proctor PCP Encounter Details Care Team Description Date Type Department Odyle, Default Authenticator [address] [place] [address] 06/19/2016 [facility] [address] [place] [address] Social History Date Tobacco Use Types Packs/Day [...]
--- OUTSIDE RECORDS SUMMARY | 2019-08-08 14:01 | XMS REPORT | Encounter Summary ---
Author Author [facility] Organization [facility] Address Unknown Phone Unavailable Care Team Providers Care Agricultural Researcher Name Role Phone Pravin Proctor PCP Encounter Details Care Team Description Date Type Department Doyle, Default Authenticator [address] [place] [address] 06/19/2016 [facility] In[facility] Management [address] [place] [address] Social History Date Tobacco Use Types Packs/Day [...]
--- OUTSIDE RECORDS SUMMARY | 2019-08-08 14:02 | XMS REPORT | Encounter Summary ---
Author Author [facility] Organization [facility] Address Unknown Phone Unavailable Care Team Providers Care Bulk Sugar Handler Name Role Phone Sydni Russell PCP Encounter Details Care Team Description Date Type Department Reid Stock MD [address] [facility] [address] [place], [place] [id number] 12/26/2014 [facility] Encounter [address] [place] [address] Social History Date Tobacco Use Types Packs/Day Years Used Never Assessed Sex Assigned at Date Recorded Not on file Industry Job Start Date Occupation Not on file Not on file Not on file Travel End Travel History Travel Start No recent travel history available. documented as of this encounter Medications at Time of Discharge Start Date End Date Medication Sig Dispensed Refills 12/26/2014 latanoprost (XALATAN) instill 1 30 0 0.005 % ophthalmic drop by solution ophthalmic route every day into affected eye(s) in the evening 12/26/2014 memantine (NAMENDA) 10 MG take 1 tablet 30 0 tablet by oral route 2 times every day 12/15/2010 01/08/2015 aspirin 81 MG chewable currently 0 0 tablet holding ASA 08/04/2010 01/08/2015 aspirin 81 MG chewable take 1 tablet 0 tablet (81MG) by oral route every day 08/04/2012 01/08/2015 aspirin 81 MG EC tablet take 1 tablet 1 0 (81MG) by oral route every day 07/01/2011 01/08/2015 brinzolamide (AZOPT) 1 % instill 1 1 0 ophthalmic suspension drop by ophthalmic route 3 times every day into affected eye(s) 09/30/2010 01/08/2015 clopidogrel (PLAVIX) 75 take 1 tablet 0 mg tablet (75MG) by oral route every day 11/08/2013 01/08/2015 COUMADIN 1 mg tablet take 1 -2 60 6 tablet daily or as directed 01/19/2011 01/08/2015 COUMADIN 1 mg tablet take 1 -2 60 6 tablet daily or as directed 11/08/2013 01/08/2015 COUMADIN 5 mg tablet take 1 tablet 30 3 by mouth daily or as directed 09/04/2010 01/08/2015 COUMADIN 5 mg tablet take 1 tablet 30 0 by mouth daily or as directed 08/04/2010 01/08/2015 dabigatran etexilate take 1 60 11 (PRADAXA) 150 mg capsu capsule (150MG) by oral route 2 times every day 11/08/2013 01/08/2015 donepezil (ARICEPT) 10 MG take 1 tablet 1 0 tablet (10MG) by oral route every day in the evening 08/04/2010 01/08/2015 lisinopril-hydrochlorothi take 1 tablet 90 3 azide by oral route (PRINZIDE,ZESTORETIC) every day 10-12.5 mg per tablet 12/26/2014 01/08/2015 memantine (NAMENDA XR) 7 take 1 1 0 mg ER 24 hr capsule capsule by oral route every day for 7 days 12/15/2010 01/08/2015 nebivolol (BYSTOLIC) 5 MG 1/2 tablet 0 0 tablet daily 08/04/2010 01/08/2015 nebivolol (BYSTOLIC) 5 MG take 1 tablet 30 11 tablet (5MG) by oral route every day 11/29/2011 01/08/2015 phytosterol esters 3 po daily 90 0 (CARDIOTABS CARDIOSTEROL) capsule 11/29/2011 01/08/2015 red yeast rice 600 mg Tab 4 po daily 1 0 12/26/2014 01/16/2016 rivaroxaban (XARELTO) 15 One daily 30 11 mg Tab tablet documented as of this encounter Plan of Treatment Not on filedocumented as of this encounter Procedures Comments Procedure Name Priority Date/Time Associated Diag nosis LAB SUMMARY 12/27/2014 7:12 AM CDT PROTHROMBIN TIME/INR Routine 12/26/2014 3:13 PM CDT CREATININE Routine 12/26/2014 3:13 PM CDT BLOOD UREA NITROGEN Routine 12/26/2014 3:13 PM CDT documented in this encounter Results * LAB SUMMARY (12/27/2014 7:12 AM CDT) Narrative Performed At This result has an attachment that is n ot available. Ordered by an unspecified provider. * Blood Urea Nitrogen (12/26/2014 3:13 PM CDT) Blood Urea 14 7 - 26 mg/dL [facility] Specimen Performing Organization Address [facility] one Number [address] [phone] LABORATORIES * Creatinine (12/26/2014 3:13 PM CDT) Creatinine 1.0 0.6 - 1.3 mg/dL [facility] eGFR Male AA 87Comment: Chronic Kidney 60 - 200 [facility] Disease less than 60 REGIONAL mL/min/1.73 sq.m Kidney LABORATORIES failure less than 15 mL/min/1.73 sq.m eGFR Male 72Comment: Chronic Kidney 60 - 200 [facility] Non-AA Disease less than 60 REGIONAL mL/min/1.73 sq.m Kidney LABORATORIES failure less than 15 mL/min/1.73 sq.m Specimen Performing Organization Address [facility] one Number [facility] [address] [place] [phone] LABORATORIES * Prothrombin Time/INR (12/26/2014 3:13 PM CDT) Protime 22.9 (H) 11.4 - 15.0 sec [facility] INR 2.1 (H) 0.8 - 1.2 [facility] Specimen Performing Organization Address City/[facility] Ph one Number [facility] [address] [place] [address] LABORATORIES documented in this encounter Visit Diagnoses Not on filedocumented in this encounter
--- OUTSIDE RECORDS SUMMARY | 2019-08-08 14:02 | XMS REPORT | Encounter Summary ---
Author Author [facility] Organization [facility] Address Unknown Phone Unavailable Care Team Providers Care Reporting Manager Name Role Phone Pravin Proctor PCP Encounter Details Care Team Description Date Type Department Reid Stock MD [address] [place] [address] [phone] 11/19/2015 Documentation [facility] [address] [place] [address] Social History Date Tobacco Use Types Packs/Day Years Used Never Assessed Sex Assigned at Date Recorded Not on file Industry Job Start Date Occupation Not on file Not on file Not on file Travel End Travel History Travel Start No recent travel history available. documented as of this encounter Progress Notes * Sydni Dumont - 11/19/2015 10:32 AM CDT 11/18 scheduled annual at [facility] 01/11 with pts dtrSydni; PCP seen & mailed lab order; no hosp or ins chg documented in this encounter Plan of Treatment Not on filedocumented as of this encounter Visit Diagnoses Not on filedocumented in this encounter
--- OUTSIDE RECORDS SUMMARY | 2019-08-08 14:02 | XMS REPORT | Encounter Summary ---
Author Author [facility] Organization [facility] Address Unknown Phone Unavailable Care Team Providers Care Circuit Board Inspector Name Role Phone Sydni Russell PCP Encounter Details Care Team Description Date [place] [address] [place] [address] [phone] 12/27/2014 [facility] Visit Social History Date Tobacco Use Types Packs/Day Years Used Never Assessed Sex Assigned at Date Recorded Not on file Industry Job Start Date Occupation Not on file Not on file Not on file Travel End Travel History Travel Start No recent travel history available. documented as of this encounter Progress Notes * Reid Stock MD - 12/27/2014 4:13 PM CDT [place] Office [address] [place] [address] 12/31/2014 Pravin Proctor MD [facility] [place] [address] Re: TENISHA ALEX : 1935 Chart#: [id number] Dear Dr. Proctor: This is a followup note regarding TENISHA ALEX. He has completed his cardiac testing and I am writing to share the results with you. He had the following tests: PT/INR: 12/26/2014 :Prothrombin Time/INR - Protime: 22.9 H sec (11.4-15.0) INR: 2.1 H (0.8-1.2) Creatinine: 12/26/2014 :Creatinine - Creatinine: 1.0 mg/dL (0.6-1.3) GFR Male Non-AA: 72 (60-200) BUN: 12/26/2014 :Blood Urea Nitrogen - Blood Urea Nitrogen: 14 mg/dL (7-26) Based on the above, I am recommending the following: - Discontinue Warfarin and start Xarelto as directed Follow up is requested as planned. These test results along with my recommendations have been communicated to KENDRA RUSSELL. I hope this information is useful to you. If you should have any qu estions or concerns, please do not hesitate to contact me. Sincerely, Reid Welch M.D. documented in this encounter Plan of Treatment Not on filedocumented as of this encounter Visit Diagnoses Not on filedocumented in this encounter
--- OUTSIDE RECORDS SUMMARY | 2019-08-08 14:02 | XMS REPORT | Encounter Summary ---
Author Author [facility] Organization [facility] Address Unknown Phone Unavailable Care Team Providers Care Resident Associate Name Role Phone Sydni Russell PCP Encounter Details Care Team Description Date Type Department Yo Roberts MD [address] [facility] [address] [place] [address] [phone] 09/19/2014 [facility] HISTORIC CLINI C Visit Social History Date [...] Procedure Name Priority Date/Time Associated Diag nosis PROTHROMBIN TIME/INR Routine 09/19/2014 4:38 PM CDT documented in this encounter Results * Prothrombin Time/INR (09/19/2014 4:38 PM CDT) INR 2.98 [facility] Comment: Lab Date: [id number] Date Coumadin/warfarin started: 20100910 Location where INR performed: Lab Lab name and contact information: Iris waddell/ Dr. Proctor([facility]), [phone], [phone] Patient Status: Diagnosis 1: Atrial fibrillation [facility] Diagnosis 2: Target INR Range: 2.0-3.0 Next Lab due: [id number] Pending Procedure: NA Patient Instructions(comments): IM--- cont 3.5mg daily ck in 4 wk--Sydni v/u sd Comments (General Comments) : CALL Sydni with results. [phone] patient daughter patient is a pharm/sd Dr. Barney office [phone]/ fax [phone] Patient Notified: Yes (Stacy Jaquez) Result reviewed by: Addie Mata Supervising provider name: Specimen Performing Organization Address City/State/Zipcode Ph one Number [facility] documented in this encounter Visit Diagnoses Not on filedocumented in this encounter
--- OUTSIDE RECORDS SUMMARY | 2019-08-08 14:02 | XMS REPORT | Encounter Summary ---
Author Author [facility] Organization [facility] Address Unknown Phone Unavailable Care Team Providers Care Lead Nurse Name Role Phone White HeathSydni head PCP Encounter Details Care Team Description Date Type Department Reid Stock MD [address] [facility] [address] [place] [address] [phone] 12/25/2014 [facility] HISTORIC CL[facility]I C Visit Social History [...]
--- OUTSIDE RECORDS SUMMARY | 2019-08-08 14:02 | XMS REPORT | Encounter Summary ---
Author Author [facility] Organization [facility] Address Unknown Phone Unavailable Care Team Providers Care Endless Steamer Tender Name Role Phone Sydni Russell PCP Encounter Details Care Team Description Date Type Department Yo Roberts MD [address] [facility] [address] [place] [address] [phone] 11/01/2014 [facility] Visit Social History Date [...] Date/Time Associated Diag nosis PROTHROMBIN TIME/INR Routine 11/01/2014 2:27 PM CDT documented in this encounter Results * Prothrombin Time/INR (11/01/2014 2:27 PM CDT) INR 2.50 [facility] Comment: Lab Date: [id number] Date Coumadin/warfarin started: 20100910 Location where INR performed: Lab Lab name and contact information: Iris waddell/ Dr. Proctor([facility]), [phone], [phone] Patient Status: Diagnosis 1: Atrial fibrillation [facility] Diagnosis 2: Target INR Range: 2.0-3.0 Next Lab due: [id number] Pending Procedure: NA Patient Instructions(comments): IM-- cont 3.5mg daily ck in 4 wk---Sydni v/u sd Comments (General Comments) : CALL Sydni with results. [phone] patient daughter patient is a pharm/sd Dr. Barney office [phone]/ fax [phone] Patient Notified: Yes (Stacy Jaquez) Result reviewed by: Addie Mata Supervising provider name: Ian Lema Specimen Performing Organization Address City/State/Zipcode Ph one Number [facility] documented in this encounter Visit Diagnoses Not on filedocumented in this encounter
--- OUTSIDE RECORDS SUMMARY | 2019-08-08 14:02 | XMS REPORT | Encounter Summary ---
Author Author [facility] Organization [facility] Address Unknown Phone Unavailable Care Team Providers Care Golf Ball Trimmer Name Role Phone Sydni Russell PCP Encounter Details Care Team Description Date Type Department Reid Stock MD [address] [place] [address] [id number] 12/26/2014 [facility] HIST[facility]IC CL[facility]I C Visit Social History [...] Signs Reading Time Taken Comments Vital Sign 122/70 12/26/2014 1:56 PM CDT Blood Pressure 43 12/26/2014 1:56 PM CDT Pulse - - Temperature - - Respiratory Rate - - Oxygen Saturation - - Inhaled Oxygen Concentration 77 kg (169 lb 12.8 oz) 12/26/2014 1:56 PM CDT overweight Weight 172.7 cm (5' 8") 12/26/2014 1:56 PM CDT Height 25.82 12/26/2014 1:56 PM CDT Body Mass Index documented in this encounter Progress Notes * Reid Stock MD - 12/26/2014 2:00 PM CDT [place] [facility] [place], [place] [id number] Imaging Orders 12/26/2014 2:00 PM RE: TENISHA RUSSELL : 1935 Chart: [id number] Address: [address] [place], [place] [id number] Work Phone: Primary Insurance: MEDICARE Height: 5ft 8 Weight: 169.80 BMI: 25.8 Orders this visit: Test Type Test Desc Test Reason Test Location Interval EKG EKG Today EP Event recorder - auto trigger looping bradycardia [place] [facility] First Availabl e Diagnosis: 98853 Carotid Occlusion/Stenosis without infarction 4359 TIA V5861 Senior [facility] use - Anti-coag V7281 Screening for Pre-op cv exam 34096 Bradycardia 76180 Abnl EKG Final Medications: Brand Generic Dose Signature Xalatan Latanoprost 0.005 % instill 1 drop by ophthalmic route every day into a ffected eye(s) in the evening Namenda Memantine Hcl 10 Mg take 1 tablet by oral route 2 times every day Coumadin Warfarin Sodium 5 Mg take 1 tablet by mouth daily or as directed Coumadin Warfarin Sodium 1 Mg take 1 -2 tablet daily or as directed Sincerely, Reid Welch M.D. 12/26/2014 2:47 PM * Reid Stock MD - 12/26/2014 2:00 PM CDT [place] [facility] [address] [place] [address] December 26, 2014 Pravin Proctor MD [address] [place] [address] RE: TENISHA RUSSELL : 1935 Chart #: [id number] Visit provider: Reid Welch M.D. Visit location: [facility] Dear Dr. Proctor: I had the pleasure of seeing TENISHA RUSSELL in the office today. He is 79 years of age and presents with the following chief complaints: coronary artery diseas e. HPI: The patient is a very pleasant 79-year-old male with dementia and inte rmittent atrial fibrillation on anticoagulation with warfarin. [facility] to [facility]. The patient was accompanied by his daughter and his . Per the patients , he has had multiple recent falls. She states that th e falls are mainly due to him tripping over a rug or something in the garden. Ot herwise, the patient denies having any chest pain, shortness of air, or heart pa lpitations. Problem List: Arrhythmia Dysrhythmia -Atrial fibrillation-Permanent 09/14/2002 CAD PCI LM normal, left CX is also normal. The LAD had 80% proximal stenosis with a 50% diagonal lesion. The right coronary artery was subtotally o ccluded with a 99% proximal stenosis. PCI with a 4 mm stent in the RCA dilatin g it with a 4.5 mm balloon. The proximal LAD was stented with a 3.5 mm stent. The 50% diagonal stenosis was not dilated. 08/04/2010 Dyslipidemia Dyslipidemia 09/30/2010 Echo Normal left ventricular systolic function, with an estimated ej ection fraction of 60%. Normal mitral valve with mild regurgitation. Compared t o the previous study on 09/13/2002, the inferior [...] injections. A 40% stenosis of the left ICA origin due to focal atherosclerotic plaque. No stenosis of either vertebral artery origin. The right MCA and right SHAE territories are supplied from anteri or communicating artery and posterior communicating artery collaterals 10/29/2010 PVD Carotid endarterectomy Right Carotid Endarterectomy- An arterioto my was made in the right common carotid artery and extended into the internal ve ssel with internal carotid artery vessel which had been gently occluded with a v ascular clamp. A complete endarterectomy was carried out. Tobacco Abuse Former Past Medical History: Carotid Disease BPH Long-term anticoagulation-Warfarin Chronic Anxiety Past Surgical History: Adenoidectomy Tonsillectomy Parathyroidectomy 2002 Cataract Surgery Both 2012 Final Medications: Xalatan 0.005 % instill 1 drop by ophthalmic route every day into affected eye(s) in the evening Namenda 10 Mg take 1 tablet by oral route 2 times every day Xarelto 15 Mg One daily Allergies/Intolerances: No Known Allergies Family History: Mother Cause of was CAD at age 74. 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 Quit in 1959 Alcohol: Currently drinks 1 glass of wine daily Caffeine: Caffeine use: 1 cup of tea ROS: 12-point review of systems is negative with the following exceptions: Constitutional: Fatigue Pulmonary: Hemoptysis, Snore Neuro: Disequilibrium Hematology: Bleed or bruise easily Endocrine/Psych: Cold intolerance Physical Exam: Vital Signs The patient is 5ft 8in tall, and weighs 169.8lbs. The BMI is 25.80. Blood pressure taken in the left arm is 122/70 mmHg in the sitting position. The pulse is 43. The rhythm is regular. Const The patient is an overweight male. Vasc Distal pulses 2+ throughout with no carotid bruits noted. HEENT The pupils are equal and round. The patient's sclerae are clear. There i s no corneal arcus. There are no xanthelasmas noted. The oral mucosa is moist. The patien t's neck veins are flat. EXT The extremities are warm to touch. There is no edema noted. Pulm Lungs are clear to auscultation. Skin The skin is warm and dry. M/S The patient's gait is normal. Cardiac Regular rate and rhythm. Abd The patient has no abdominal tenderness to palpation. There is no hepatomeg anna. There is no splenomegaly. The abdominal aorta is of normal size. Neuro/Psych The patient is alert and oriented to person. No hemiparesis is pres ent. The patient's mood is normal. Neuro/Psych The patient is disoriented to time and place. Thorax There is no evidence of pectus excavatum. EKG: Rhythm: Sinus bradycardia and PVC Rate: 43 ST/T Wave Abnormalities: nonspecific abnormality, ST segment Most Recent Lipids Available for Review: Date Collected: 01/22/2014 Fasting: Fasting unknown Total Cholesterol: 190 HDL: 40 LDL: 126 Triglycerides: 120 Ratio: 4.75 Glucose: 83 ALT 12 QI: Patient has a diagnosis of atrial fibrillation or flutter and is prescribed an a nticoagulant. CHADS2 score is at least: 2 Impression: 1. Carotid disease. The patient underwent right and left carotid endarterectomy in 2011. 2. Dementia. 3. Intermittent atrial fibrillation. 4. Sinus bradycardia. Plan: At this point, review of EKG in the office shows heart rate in the mid 40s. On r eview of the medications, the patient is taking Namenda and Aricept. At this poi nt, we will plan to discontinue Aricept and monitor the patients heart rate. We plan to check kidney function including creatinine and BUN as well as INR tod ay. If the INR is less than 2.0, we will plan to start the patient on Xarelto an d discontinue warfarin. Testing ordered: Description Interval EKG Today Event recorder - auto trigger looping First Available Labs ordered: Creatinine Today PT/INR Today BUN Today Follow up: Reid Welch M.D. 1 Year Thank you for allowing me to participate in TENISHA RUSSELL's care. If I can be of any further assistance, please do not hesitate to contact me. Sincerely, Emanuel Daly MD I have seen and examined this patient. I have reviewed the above note and discu ssed this patient with the fellow. I agree with the above note. Reid BANSAL/KATRIN/tmo/* F: 01/01/2015 documented in this encounter Plan of Treatment Not on filedocumented as of this encounter Visit Diagnoses Not on filedocumented in this encounter
--- OUTSIDE RECORDS SUMMARY | 2019-08-08 14:02 | XMS REPORT | Encounter Summary ---
Author Author [facility] Organization [facility] Address Unknown Phone Unavailable Care Team Providers Care Strategy Lead Name Role Phone WayzataSydni head PCP Encounter Details Care Team Description Date Type Department Reid Stock MD [address] [facility] [address] [place] [address] [phone] 12/27/2014 [facility] Visit Social History Date [...]
--- OUTSIDE RECORDS SUMMARY | 2019-08-08 14:02 | XMS REPORT | Encounter Summary ---
Author Author [facility] Organization [facility] Address Unknown Phone Unavailable Care Team Providers Care Research Interviewer Name Role Phone Arely Russell PCP Encounter Details Care Team Description Date Type Department Yo Roberts MD [address] [facility] [address] [place] [address] [phone] 09/30/2014 [facility] [...] Date/Time Associated Diag nosis PROTHROMBIN TIME/INR Routine 09/30/2014 11:45 AM CDT documented in this encounter Results * Prothrombin Time/INR (09/30/2014 11:45 AM CDT) INR 2.40 NUCMED Comment: Lab Date: 20140930 Date Coumadin/warfarin started: 20100910 Location where INR performed: Lab Lab name and contact information: Iris waddell/ Dr. Proctor([facility]), [phone], [phone] Patient Status: Diagnosis 1: Atrial fibrillation [facility] Diagnosis 2: Target INR Range: 2.0-3.0 Next Lab due: 20141028 Pending Procedure: NA Patient Instructions(comments): IM--- cont 3.5mg daily ck in 4 wk--pts dtr arely vu/filipe Comments (General Comments) : CALL Arely with results. [phone] patient daughter patient is a pharm/sd Dr. Barney office [phone]/ fax [phone] Patient Notified: Yes (Frannie Hare) Result reviewed by: Addie Mata Supervising provider name: Elie Mahajan Specimen Performing Organization Address City/State/Zipcode Ph one Number NUCMED documented in this encounter Visit Diagnoses Not on filedocumented in this encounter
--- OUTSIDE RECORDS SUMMARY | 2019-08-08 14:02 | XMS REPORT | Encounter Summary ---
Author Author [facility] Organization [facility] Address Unknown Phone Unavailable Care Team Providers Care Ticket Machine Operator Name Role Phone Sydni Russell PCP Encounter Details Care Team Description Date Type Department Reid Stock MD [address] [place] [address] [phone] 11/05/2014 [facility] [...] Progress Notes * Reid Stock MD - 11/05/2014 11:31 AM CDT [place] [facility] [address] [place] [phone] Imaging Orders 11/05/2014 11:31 AM RE: TENISHA RUSSELL : 1935 Chart: [id number] Address: [address] [place], [place] [id number] Work Phone: Primary Insurance: MEDICARE Height: 5ft 8 Weight: BMI: Orders this visit: Test Type Test Desc Test Reason Test Location Interval Echo Carotid duplex +carotid disease [place] [facility] Before Next Visit Diagnosis: [address] Carotid Occlusion/Stenosis without infarction 4359 TIA V5861 Cable Splicer use - Anti-coag V7281 Screening for Pre-op cv exam Final Medications: Brand Generic Dose Signature Namenda Xr Memantine Hcl 28 Mg take 1 capsule (28MG) by oral route every day Coumadin Warfarin Sodium 1 Mg take 1 -2 tablet daily or as directed Coumadin Warfarin Sodium 5 Mg take 1 tablet by mouth daily or as directed Aricept Donepezil Hcl 10 Mg take 1 tablet (10MG) by oral route every day in th e evening Sincerely, Reid Welch M.D. 11/14/2014 10:13 AM documented in this encounter Plan of Treatment Not on filedocumented as of this encounter Visit Diagnoses Not on filedocumented in this encounter
--- OUTSIDE RECORDS SUMMARY | 2019-08-08 14:02 | XMS REPORT | Encounter Summary ---
Author Author [facility] Organization [facility] Address Unknown Phone Unavailable Care Team Providers Care Editor City Name Role Phone Yvonne Sydni PCP Encounter Details Care Team Description Date Type Department Thi Kelly RN ANP no forwarding address 12/19/2014 [facility] - Hist [facility] HISTORIC CLINI C Visit Social [...]
--- OUTSIDE RECORDS SUMMARY | 2019-08-08 14:02 | XMS REPORT | Encounter Summary ---
Author Author [facility] Organization [facility] Address Unknown Phone Unavailable Care Team Providers Care Dietetic Tech Name Role Phone YvonneSydni head PCP Encounter Details Care Team Description Date Type Department Reid Stock MD [address] [place] [address] [phone] 02/24/2015 Documentation [facility] [address] [place] [address] Social History Date Tobacco Use Types Packs/Day [...]
--- OUTSIDE RECORDS SUMMARY | 2019-08-08 14:02 | XMS REPORT | Encounter Summary ---
Author Author [facility] Organization [facility] Address Unknown Phone Unavailable Care Team Providers Care Reproductive Healthcare Assistant Name Role Phone Sydni Russell PCP Encounter Details Care Team Description Date Type Department Yo Roberts MD [address] [facility] [address] [place] [address] [phone] 11/14/2014 [facility] [...] Date/Time Associated Diag nosis PROTHROMBIN TIME/INR Routine 11/14/2014 3:23 PM CDT documented in this encounter Results * Prothrombin Time/INR (11/14/2014 3:23 PM CDT) INR 2.20 NUCMED Comment: Lab Date: 20141114 Date Coumadin/warfarin started: 20100910 Location where INR performed: Lab Lab name and contact information: Iris waddell/ Dr. Proctor([facility]), [phone], [phone] Patient Status: Diagnosis 1: Atrial fibrillation [facility] Diagnosis 2: Target INR Range: 2.0-3.0 Next Lab due: 20141212 Pending Procedure: NA Patient Instructions(comments): IM-- cont 3.5mg daily ck in 4 wk---pts vu/no ans Sydni #/dh Comments (General Comments) : CALL Sydni with results. [phone] patient daughter patient is a pharm/sd Dr. Barney office [phone]/ fax [phone] Patient Notified: Yes (Frannie Hare) Result reviewed by: Addie Mata Supervising provider name: Eva Nicole Specimen Performing Organization Address City/State/Zipcode Ph one Number NUCMED documented in this encounter Visit Diagnoses Not on filedocumented in this encounter
--- OUTSIDE RECORDS SUMMARY | 2019-08-08 14:02 | XMS REPORT | Encounter Summary ---
Author Author [facility] Organization [facility] Address Unknown Phone Unavailable Care Team Providers Care Document Manager Name Role Phone Sydni Russell PCP Encounter Details Care Team Description Date Type Department Yo Roberts MD [address] [facility] [address] [place] [address] [phone] 07/23/2014 [facility] - [facility] HISTORIC CLINI C Visit Social History [...] Date/Time Associated Diag nosis PROTHROMBIN TIME/INR Routine 07/23/2014 4:[address]MAN documented in this encounter Results * Prothrombin Time/INR (07/23/2014 4:[address] TABLEMAN) INR 2.41 NUCMED Comment: Lab Date: 20140723 Date Coumadin/warfarin started: 20100910 Location where INR performed: Lab Lab name and contact information: Iris waddell/ Dr. Proctor([facility]), [phone], [phone] Patient Status: Diagnosis 1: Atrial fibrillation [facility] Diagnosis 2: Target INR Range: 2.0-3.0 Next Lab due: 20140820 Pending Procedure: NA Patient Instructions(comments): IM--- cont 3.5mg daily ck in 4 wk---pt dtr v/u Comments (General Comments) : CALL Sydni with results. [phone] patient daughter patient is a pharm/sd Dr. Barney office [phone]/ fax [phone] Patient Notified: Yes (Carmen Duval) Result reviewed by: Addie Mata Supervising provider name: Chirag Urrutia Specimen Performing Organization Address City/State/Zipcode Ph one Number NUCMED documented in this encounter Visit Diagnoses Not on filedocumented in this encounter
--- OUTSIDE RECORDS SUMMARY | 2019-08-08 14:02 | XMS REPORT | Encounter Summary ---
Author Author [facility] Organization [facility] Address Unknown Phone Unavailable Care Team Providers Care Cable Puller Name Role Phone Sydni Russell PCP Encounter Details Care Team Description Date Type Department Reid Stock MD [address] [place] [address] [phone] 12/27/2014 [facility] [...] Notes * Reid Stock MD - 12/27/2014 11:00 AM CDT [place] [facility] [address] [place] [address] 12/27/2014 Pravin Proctor MD [facility] [place] [address] Re: STEVEN ALEX : 1935 Chart#: [id number] Dear Dr. Proctor: This is a followup note regarding TENISHA ALEX. He has completed his cardiac testing and I am writing to share the results with you. He had the following tests: Carotid duplex: 12/26/14 IMPRESSION: 1. Moderate atherosclerotic plaque with no evidence for a hemodynamically si gnificant stenosis in the right internal carotid artery. 2. Both vertebral arteries are patent with antegrade flow. Based on the above, I am recommending the following: - no new recommendations - continue medical treatment These test results along with my recommendations [...]
--- OUTSIDE RECORDS SUMMARY | 2019-08-08 14:02 | XMS REPORT | Encounter Summary ---
Author Author [facility] Organization [facility] Address Unknown Phone Unavailable Care Team Providers Care House Calls Nurse Name Role Phone Sydni Russell PCP Encounter Details Care Team Description Date Type Department Yo Roberts MD [address] [facility] [address] [place] [address] [phone] 09/05/2014 [facility] - [facility] HISTORIC CLINI C Visit Social History [...] Date/Time Associated Diag nosis PROTHROMBIN TIME/INR Routine 09/05/2014 3:42 PM CDT documented in this encounter Results * Prothrombin Time/INR (09/05/2014 3:42 PM CDT) INR 1.53 NUCMED Comment: Lab Date: 20140905 Date Coumadin/warfarin started: 20100910 Location where INR performed: Lab Lab name and contact information: Iris waddell/ Dr. Proctor([facility]), [phone], [phone] Patient Status: Diagnosis 1: Atrial fibrillation [facility] Diagnosis 2: Target INR Range: 2.0-3.0 Next Lab due: 20140919 Pending Procedure: NA Patient Instructions(comments): IM---holding or missed?--- take 5.5mg today and cont 3.5mg daily ck in 2 wk--- pt v/u---sw Comments (General Comments) : CALL Sydni with results. [phone] patient daughter patient is a pharm/sd Dr. Barney office [phone]/ fax [phone] Patient Notified: Yes (Addie Mata) Result reviewed by: Addie Mata Supervising provider name: Ian Fair Specimen Performing Organization Address City/State/Zipcode Ph one Number NUCMED documented in this encounter Visit Diagnoses Not on filedocumented in this encounter
--- OUTSIDE RECORDS SUMMARY | 2019-08-08 14:02 | XMS REPORT | Encounter Summary ---
Author Author [facility] Organization [facility] Address Unknown Phone Unavailable Care Team Providers Care Home Improvement Contractor Name Role Phone Sydni Russell PCP Encounter Details Care Team Description Date Type Department Yo Roberts MD [address] [facility] [address] [place] [address] [phone] 08/07/2014 [facility] [...] Date/Time Associated Diag nosis PROTHROMBIN TIME/INR Routine 08/07/2014 12:31 PM FURNITURE SPRAYER documented in this encounter Results * Prothrombin Time/INR (08/07/2014 12:31 PM FURNITURE SPRAYER) INR 2.20 NUCMED Comment: Lab Date: 20140807 Date Coumadin/warfarin started: 20100910 Location where INR performed: Lab Lab name and contact information: Iris waddell/ Dr. Proctor([facility]), [phone], [phone] Patient Status: Diagnosis 1: Atrial fibrillation [facility] Diagnosis 2: Target INR Range: 2.0-3.0 Next Lab due: 20140904 Pending Procedure: NA Patient Instructions(comments): IM---cont 3.5mg daily ck in 4 wk--- pt dtr v/u----sw Comments (General Comments) : CALL Sydni with results. [phone] patient daughter patient is a pharm/sd Dr. Barney office [phone]/ fax [phone] Patient Notified: Yes (Addie Mata) Result reviewed by: Addie Mata Supervising provider name: Eriberto Michaud Specimen Performing Organization Address City/State/Zipcode Ph one Number NUCMED documented in this encounter Visit Diagnoses Not on filedocumented in this encounter
--- OUTSIDE RECORDS SUMMARY | 2019-08-08 14:02 | XMS REPORT | Encounter Summary ---
Author Author [facility] Organization [facility] Address Unknown Phone Unavailable Care Team Providers Care Staff Scientist Name Role Phone YvonneSydni head PCP Reason for Referral * Diagnostic Imaging (Routine) Referred By Contact Referred To Contact Status Reason Specialty Diagnoses / Procedures Katya Stock MD [address] [facility] [address] [place] [address] Closed Diagnoses Occlusion and stenosis of carotid artery without mention of cerebral infarction Unspecified transient cerebral ischemia group home (current) use of anticoagulants Pre-operative cardiovascular examination P rocedures CV US Carotid Duplex bilat Reason for Visit * Diagnostic Imaging (Routine) Referred By Contact Referred To Contact Status Reason Specialty Diagnoses / Procedures Katya Stock MD [address] [facility] [address] [place] [address] Closed Diagnoses Occlusion and stenosis of carotid artery without mention of cerebral infarction Unspecified transient cerebral ischemia group home (current) use of anticoagulants Pre-operative cardiovascular examination P rocedures CV US Carotid Duplex bilat Encounter Details Care Team Description Date Type Department Occlusion and stenosis of ca rotid artery without mention of cerebral infarction; Unspecified transient cerebral ischemia; tank terminal gauger (current) use of anticoagulants; [facility] [address] [place], [place] [id number] Social History Date Tobacco Use Types Packs/Day [...] Diag nosis CV US CAROTID DUPLEX Routine 12/26/2014 Occlusion and stenosis of BILAT 4:15 PM CDT carotid artery with out mention of cerebral infarction Unspecified transient cerebral ischemia tank terminal gauger (current) use of anticoagulants Pre-operative cardiovascular examination documented in this encounter Results * CV US Carotid Duplex bilat (12/26/2014 4:15 PM CDT) Specimen Impressions [facility]formed [facility] 1. Moderate atherosclerotic plaque with no evidence for a hemodynamically significant stenosis in the right internal caroti d artery. 2. Both vertebral arteries are pat ent with antegrade flow. Wander Gayle M.D. (Electronically Signed) Final Date: 26 December 2014 17:23 Narrative Performed At [facility] Carotid Duplex Report [facility] Name: TENISHA RUSSELL Date: 12/26/2014 15:58 Chart# [id number] : 1935 Location: [facility] OP Sono: [place] Age: 79 Gender: M Referring:KATYA MERCHANT Indication:Bruit, Carotid stenosis w ithout infarction [id number] Right BP: 140 / 80 Velocity (cm/s) Velocity (cm/s) Left BP:130 / 80 Syst/Diast Syst/Diast 82 /22 Distal ICA98 / 34 52 /12 Mid ICA 105 / 33 67 /11 Prox ICA 115 / 30 50 /9 Bulb 91 / 17 78 /11 Distal CCA92 / 12 82 /5 Prox CCA 115 / 17 68 ECA 97 RIGHT LEFT Antegrade Vertebral Antegrade 48 83 Rt Subclavian Bret:100 Lt Subclavia n Bret:91 0.9 ICA/CCA 1.3 Findings: Right Carotid: Mild mostly s mooth atherosclerotic plaque in the common carotid artery. Moderate mixe d density plaqu e in the carotid bulb extending into both the ICA and ECA. Left Carotid: Moderate to mixed de nsity plaque in the carotid bulb extending into the ICA. Performing Organization Address City/State/Zipcode Ph one Number [facility] documented in this encounter Visit Diagnoses Diagnosis Occlusion and stenosis of carotid arter y without mention of cerebral infarction Unspecified transient cerebral ischemia tank terminal gauger (current) use of anticoagulan ts Long-term (current) use of anticoagulan ts Pre-operative cardiovascular examinatio n documented in this encounter
--- OUTSIDE RECORDS SUMMARY | 2019-08-08 14:02 | XMS REPORT | Encounter Summary ---
Author Author [facility] Organization [facility] Address Unknown Phone Unavailable Care Team Providers Care Radio Time Buyer Name Role Phone Sydni Russell PCP Encounter Details Care Team Description Date Type Department Wander Gayle MD [address] [facility] [address] [place] [address] [phone] 12/20/2014 [facility] [...] Date/Time Associated Diag nosis PROTHROMBIN TIME/INR Routine 12/20/2014 3:31 PM CDT documented in this encounter Results * Prothrombin Time/INR (12/20/2014 3:31 PM CDT) INR 1.90 [facility] Comment: Lab Date: 20141219 Date Coumadin/warfarin started: 20100910 Location where INR performed: Lab Lab name and contact information: Iris 4 wks siri waddell/ Dr. Proctor([facility]), [id number], [phone] Patient Status: Diagnosis 1: Atrial fibrillation JHO Diagnosis 2: Target INR Range: 2.0-3.0 Next Lab due: 20150116 Pending Procedure: NA Patient Instructions(comments): IM---cont 3.5mg daily ck in 4 wks--Sydni vu/filipe Comments (General Comments) : CALL Sydni with results. [phone] patient daughter patient is a pharm/sd Dr. Barney office [phone]/ fax [phone] Patient Notified: Yes (Frannie Hare) Result reviewed by: Frannie Hare Supervising provider name: Elio Sumner Specimen Performing Organization Address City/State/Zipcode Ph one Number [facility] documented in this encounter Visit Diagnoses Not on filedocumented in this encounter
--- OUTSIDE RECORDS SUMMARY | 2019-08-08 14:02 | XMS REPORT | Encounter Summary ---
Author Author [facility] Organization [facility] Address Unknown Phone Unavailable Care Team Providers Care Home Theater Expert Name Role Phone Sydni Russell PCP Encounter Details Care Team Description Date Type Department Wander Gayle MD [address] [facility] [address] [place] [address] [phone] 12/12/2014 [facility] [...] Date/Time Associated Diag nosis PROTHROMBIN TIME/INR Routine 12/12/2014 11:09 AM CDT documented in this encounter Results * Prothrombin Time/INR (12/12/2014 11:09 AM CDT) INR 2.20 [facility] Comment: Lab Date: 20141211 Date Coumadin/warfarin started: 20100910 Location where INR performed: Lab Lab name and contact information: Iris [address] wks siri waddell/ Dr. Proctor([facility]), [id number], [phone] Patient Status: Diagnosis 1: Atrial fibrillation JHO Diagnosis 2: Target INR Range: 2.0-3.0 Next Lab due: 20150108 Pending Procedure: NA Patient Instructions(comments): IM---cont 3.5mg daily ck in 4 wks--- pt dtr v/u---sw Comments (General Comments) : CALL Sydni with results. [phone] patient daughter patient is a pharm/sd Dr. Barney office [phone]/ fax [phone] Patient Notified: Yes (Addie Mata) Result reviewed by: Belkys Rose Supervising provider name: Fernando Santacruz Specimen Performing Organization Address City/State/Zipcode Ph one Number [facility] documented in this encounter Visit Diagnoses Not on filedocumented in this encounter
--- OUTSIDE RECORDS SUMMARY | 2019-08-08 14:03 | XMS REPORT | Encounter Summary ---
Author Author [facility] Organization [facility] Address Unknown Phone Unavailable Care Team Providers Care Assistant Boiler Operator Name Role Phone Sydni Russell PCP Encounter Details Care Team Description Date Type Department Bacilio Liriano MD [address] [facility] [address] [place], [place] [id number] 12/25/2013 [facility]OR[facility] C Visit Social History [...] Date/Time Associated Diag nosis PROTHROMBIN TIME/INR Routine 12/25/2013 2:46 PM CDT documented in this encounter Results * Prothrombin Time/INR (12/25/2013 2:46 PM CDT) INR 2.20 [facility] Comment: Lab Date: 20131225 Date Coumadin/warfarin started: 20100910 Location where INR performed: Lab Lab name and contact information: Iris 4 wks siri waddell/ Dr. Proctor([facility]), [id number], [id number] Patient Status: Diagnosis 1: Atrial fibrillation JHO Diagnosis 2: Target INR Range: 2.0-3.0 Next Lab due: 20140122 Pending Procedure: NA Patient Instructions(comments): IM--- cont 3.5mg daily ck in 4 wk/// dtr v/u-jcm Comments (General Comments) : CALL Sydni with results. [phone] patient daughter patient is a pharm/sd Dr. Barney office [phone]/ fax [phone] Patient Notified: Yes (Sena Francisco) Result reviewed by: Stacy Jaquez Supervising provider name: Elio Sumner Specimen Performing Organization Address City/State/Zipcode Ph one Number [facility] documented in this encounter Visit Diagnoses Not on filedocumented in this encounter
--- OUTSIDE RECORDS SUMMARY | 2019-08-08 14:03 | XMS REPORT | Encounter Summary ---
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 Proctor([facility]), [id number], [phone] Patient Status: Diagnosis 1: Atrial fibrillation JHO Diagnosis 2: Target INR Range: 2.0-3.0 Next Lab due: 20140610 Pending Procedure: NA Patient Instructions(comments): none Comments (General Comments) : CALL Sydni with results. [phone] patient daughter patient is a pharm/sd Dr. Barney office [phone]/ fax [phone] Patient Notified: Yes (Dalia Naylor) Result reviewed by: Tonja Nice Supervising provider name: Eriberto Michaud Specimen Performing Organization Address City/State/Zipcode Ph one Number [facility] documented in this encounter Visit Diagnoses Not on filedocumented in this encounter
--- OUTSIDE RECORDS SUMMARY | 2019-08-08 14:03 | XMS REPORT | Encounter Summary ---
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 Proctor([facility]), [id number], [id number] Patient Status: Diagnosis 1: Atrial fibrillation JHO Diagnosis 2: Target INR Range: 2.0-3.0 Next Lab due: 20140723 Pending Procedure: NA Patient Instructions(comments): IM-- mailed reminder letter to ck INR rosalia/sd Comments (General Comments) : CALL Sydni with results. [phone] patient daughter patient is a pharm/sd Dr. Barney office [phone]/ fax [phone] Patient Notified: Yes (Stacy Jaquez) Result reviewed by: Stacy Jaquez Supervising provider name: Specimen Performing Organization Address City/State/Zipcode Ph one Number [facility] documented in this encounter Visit Diagnoses Not on filedocumented in this encounter
--- OUTSIDE RECORDS SUMMARY | 2019-08-08 14:03 | XMS REPORT | Encounter Summary ---
Author Author [facility] Organization [facility] Address Unknown Phone Unavailable Care Team Providers Care Vault Manager Name Role Phone FirthSydni head PCP Encounter Details Care Team Description Date Type Department Reid Stock MD [address] [facility] [address] [place] [address] [phone] 11/26/2013 [facility]ISTORIC CL[facility] C Visit Social History [...]
--- OUTSIDE RECORDS SUMMARY | 2019-08-08 14:03 | XMS REPORT | Encounter Summary ---
Author Author [facility] Organization [facility] Address Unknown Phone Unavailable Care Team Providers Care Live Source Operator Name Role Phone Sydni Russell PCP Encounter Details Care Team Description Date Type Department Ramin Oneil MD [address] [facility] [address] [place] [address] [phone] 11/13/2013 [facility] [...] Date/Time Associated Diag nosis PROTHROMBIN TIME/INR Routine 11/13/2013 3:55 PM CDT documented in this encounter Results * Prothrombin Time/INR (11/13/2013 3:55 PM CDT) INR 2.00 [facility] Comment: Lab Date: 20131113 Date Coumadin/warfarin started: 20100910 Location where INR performed: Lab Lab name and contact information: Iris 4 wks siri waddell/ Dr. Proctor([facility]), [id number], [id number] Patient Status: Diagnosis 1: Atrial fibrillation JHO Diagnosis 2: Target INR Range: 2.0-3.0 Next Lab due: 20131127 Pending Procedure: NA Patient Instructions(comments): IM--- cont 3.5mg daily ck in 2 wk--spoke with dtnadira Troy v/u-isidoro Comments (General Comments) : CALL Sydni with results. [phone] patient daughter patient is a pharm/sd Dr. Barney office [phone]/ fax [phone] Patient Notified: Yes (Brijesh Shields) Result reviewed by: Stacy Jaquez Supervising provider name: Elie Mahajan Specimen Performing Organization Address City/State/Zipcode Ph one Number [facility] documented in this encounter Visit Diagnoses Not on filedocumented in this encounter
--- OUTSIDE RECORDS SUMMARY | 2019-08-08 14:03 | XMS REPORT | Encounter Summary ---
Author Author [facility] Organization [facility] Address Unknown Phone Unavailable Care Team Providers Care Solar Manager Name Role Phone Arely Russell PCP Encounter Details Care Team Description Date Type Department Rosamaria Ocampo MD [address] [facility] [address] [place], [place] [id number] 02/05/2014 [facility] [...] Date/Time Associated Diag nosis PROTHROMBIN TIME/INR Routine 02/06/2014 9:21 AM CDT documented in this encounter Results * Prothrombin Time/INR (02/06/2014 9:21 AM CDT) INR 2.80 [facility] Comment: Lab Date: 20140205 Date Coumadin/warfarin started: 20100910 Location where INR performed: Lab Lab name and contact information: Iris waddell/ Dr. Proctor([facility]), [id number], [phone] Patient Status: Diagnosis 1: Atrial fibrillation JHO Diagnosis 2: Target INR Range: 2.0-3.0 Next Lab due: 20140305 Pending Procedure: NA Patient Instructions(comments): Im--- cont 3.5mg daily ck in 4wk-- arely v/u--sw Comments (General Comments) : CALL Arely with results. [phone] patient daughter patient is a pharm/sd Dr. Barney office [phone]/ fax [phone] Patient Notified: Yes (Addie Mata) Result reviewed by: Stacy Jaquez Supervising provider name: Bacilio Liriano Specimen Performing Organization Address City/State/Zipcode Ph one Number [facility] documented in this encounter Visit Diagnoses Not on filedocumented in this encounter
--- OUTSIDE RECORDS SUMMARY | 2019-08-08 14:03 | XMS REPORT | Encounter Summary ---
Author Author Organization Address Unknown Phone Unavailable Care Team Providers Care Nurse Infection Control Name Role Phone Sydni Russell PCP Encounter Details Care Team Description Date Type Department Dustin Pittman MD No Forwarding Address 11/22/2013 [facility] - [facility] HISTORIC CLINI C Visit Social [...]
--- OUTSIDE RECORDS SUMMARY | 2019-08-08 14:03 | XMS REPORT | Encounter Summary ---
Author Author [facility] Organization [facility] Address Unknown Phone Unavailable Care Team Providers Care Court Bailiff Name Role Phone Sydni Russell PCP Encounter Details Care Team Description Date Type Department Wander Gayle MD [address] [facility] [address] [place] [address] [phone] 01/22/2014 [facility] [...] Date/Time Associated Diag nosis PROTHROMBIN TIME/INR Routine 01/22/2014 11:34 AM CDT documented in this encounter Results * Prothrombin Time/INR (01/22/2014 11:34 AM CDT) INR 3.28 [facility] Comment: Lab Date: 20140122 Date Coumadin/warfarin started: 20100910 Location where INR performed: Lab Lab name and contact information: Iris [address] siri waddell/ Dr. Proctor([facility] [facility]), [id number], [phone] Patient Status: Diagnosis 1: Atrial fibrillation JHO Diagnosis 2: Target INR Range: 2.0-3.0 Next Lab due: 20140205 Pending Procedure: NA Patient Instructions(comments): Im--- cont 3.5mg daily ck in 2 wk -- pt dtr v/u--sw Comments (General Comments) : CALL Sydni with results. [phone] patient daughter patient is a pharm/sd Dr. Barney office [phone]/ fax [phone] Patient Notified: Yes (Addie Mata) Result reviewed by: Stacy Jaquez Supervising provider name: Blane Dorantes Specimen Performing Organization Address City/State/Zipcode Ph one Number [facility] documented in this encounter Visit Diagnoses Not on filedocumented in this encounter
--- OUTSIDE RECORDS SUMMARY | 2019-08-08 14:03 | XMS REPORT | Encounter Summary ---
Author Author [facility] Organization [facility] Address Unknown Phone Unavailable Care Team Providers Care Rental Sales Agent Name Role Phone ClarksvilleSydni head PCP Encounter Details Care Team Description Date Type Department Reid Stock MD [address] [facility] [address] [place] [address] [phone] 11/02/2013 [facility] HISTORIC CLINI C Visit [...]
--- OUTSIDE RECORDS SUMMARY | 2019-08-08 14:03 | XMS REPORT | Encounter Summary ---
Author Author [facility] Organization [facility] Address Unknown Phone Unavailable Care Team Providers Care Dampproofer Name Role Phone Sydni Russell PCP Encounter Details Care Team Description [place] [address] [place] [address] [phone] 11/12/2013 [facility] [...] Progress Notes * Reid Stock MD - 11/12/2013 3:47 PM CDT [place] Office [address] [place] [address] 11/19/2013 Pravin Proctor MD [facility] [place] [address] Re: STEVEN YVONNE : 1935 Chart#: [id number] Dear Dr. Proctor: This is a followup note regarding TENISHA YVONNE. He has completed his cardiac testing and I am writing to share the results with you. He had the following tests: Carotid duplex: CONCLUSIONS: 1. There is a stenosis, in the range of 50-69%, in the left bulb and proximal IC A. 2. Mild atherosclerotic plaque in the right carotid system with no evidence for a significant stenosis. 3. Both vertebral arteries are patent with antegrade flow. 4. Compared to the previous study dated 08/04/2012, flow velocities in the left IC A are modestly increased and now consistent with a 50-69% stenosis. Based on the above, I am recommending the following: - Cerebral angiogram Follow up is requested as planned. These [...]
--- OUTSIDE RECORDS SUMMARY | 2019-08-08 14:03 | XMS REPORT | Encounter Summary ---
Author Author [facility] Organization [facility] Address Unknown Phone Unavailable Care Team Providers Care Electric Clock Mechanic Name Role Phone YvonneSydni head PCP Encounter Details Care Team Description Date Type Department Carotid artery disease (HCC) 11/08/[address] [address] Social History Date Tobacco Use Types Packs/Day Years Used Never Assessed Sex Assigned at Date Recorded Not on file Industry Job Start Date Occupation Not on file Not on file Not on file Travel End Travel History Travel Start No recent travel history available. documented as of this encounter Medications at Time of Discharge Start Date End Date Medication Sig Dispensed Refills 12/15/2010 01/08/2015 aspirin 81 MG chewable currently [...] mg Tab 4 po daily 1 0 documented as of this encounter Plan of Treatment Not on filedocumented as of this encounter Procedures Comments Procedure Name Priority Date/Time Associated Diag nosis CV US CAROTID DUPLEX Routine 11/08/2013 Carotid a rtery disease BILAT 3:12 PM CDT (HCC) documented in this encounter Results * CV US Carotid Duplex bilat (11/08/2013 3:12 PM CDT) Specimen Narrative Performed At [facility] Carotid Duplex Report [facility] Name: TENISHA RUSSELL Date: 11/08/2013 14:46 Chart# [id number] : 1935 Location: [facility] OP Sono: at yser Age: 78 Gender: M Referring:KATYA CARPIO Indication:s/p CEA V67.0 Right BP: 152 / 80 Velocity (cm/s) Velocity (cm/s) Left BP:152 / 72 Syst/Diast Syst/Diast 84 /31 Distal ICA 125 / 27 79 /20 Mid ICA 135 / 28 60 /25 Prox ICA 135 / 23 52 /7 Bulb 135 / 23 89 /16 Distal CCA 126 / 18 109 /0 Prox CCA 68 / 10 86 ECA 152 RIGHT LEFT Antegrade Vertebral Antegrade 69 Rt Subclavian Bret:61 Lt Subclavian Bret:114 0.7 ICA/CCA 1.1 Findings: Right Carotid: Changes consi stent with carotid endarterectomy. Patent right ICA bulb. Mild atheroscl erotic plaque in the carotid bulb extending into the ICA Left Carotid: Moderate atheroscler otic plaque in the carotid bulb extending into both the ICA and ECA. CONCLUSIONS: 1. There is a stenosis, in the ran ge of 50-69%, in the left bulb and proximal ICA. 2. Mild atherosclerotic plaque in the right carotid system with no evidence for a significant stenosis. 3. Both vertebral arteries are pat ent with antegrade flow. 4. Compared to the previous study dated 08/04/2012, flow velocities in the left ICA are modestly increased and now consistent with a 50 -69% stenosis. Ian Lema M.D. (Electronically Signed) Final Date: 08 November 2013 15:25 Procedure Note Interface, External Ris In - 11/08/2013 3:25 PM CDT Carotid Duplex Report [facility] Name: TENISHA RUSSELL Date: 11/08/2013 14:46 Chart# [id number] : 1935 Location: [facility] OP Sono: marj Age: 78 Gender: M Referring:KATYA CARPIO Indication:s/p CEA V67.0 Right BP: 152 / 80 Velocity (cm/s) Velocity (cm/s) Left BP:152 / 72 Syst/Diast Syst/Diast 84 /31 Distal ICA 125 / 27 79 /20 Mid ICA 135 / 28 60 /25 Prox ICA 135 / 23 52 /7 Bulb 135 / 23 89 /16 Distal CCA 126 / 18 109 /0 Prox CCA 68 / 10 86 ECA 152 RIGHT LEFT Antegrade Vertebral Antegrade 69 Rt Subclavian Bret:61 Lt Subclavian Bret:114 0.7 ICA/CCA 1.1 Findings: Right Carotid: Changes consistent with carotid endarterectomy. Patent right ICA bulb. Mild atherosclerotic plaque in the carotid bulb extending into the ICA Left Carotid: Moderate atherosclerotic plaque in the carotid bulb extending into both the ICA and ECA. CONCLUSIONS: 1. There is a stenosis, in the range of 50-69%, in the left bulb and proximal ICA. 2. Mild atherosclerotic plaque in the right carotid system with no evidence for a significant stenosis. 3. Both vertebral arteries are patent with antegrade flow. 4. Compared to the previous study dated 08/04/2012, flow velocities in the left ICA are modestly increased and now consistent with a 50-69% stenosis. Ian Lema M.D. (Electronically Signed) Final Date: 08 November 2013 15:25 Performing Organization Address City/State/Zipcode Ph one Number [facility] [address] [facility] [place] [address] documented in this encounter Visit Diagnoses Diagnosis Carotid artery disease (HCC) Unspecified disorders of arteries and a rterioles documented in this encounter
--- OUTSIDE RECORDS SUMMARY | 2019-08-08 14:03 | XMS REPORT | Encounter Summary ---
Author Author [facility] Organization [facility] Address Unknown Phone Unavailable Care Team Providers Care Credentialing Analyst Name Role Phone Sydni Russell PCP Encounter Details Care Team Description Date Type Department Reid Stock MD [address] [facility] [address] [place] [address] [phone] 11/08/2013 [facility] [...] Signs Reading Time Taken Comments Vital Sign 160/70 11/08/2013 1:44 PM CDT Blood Pressure 51 11/08/2013 1:44 PM CDT Pulse - - Temperature - - Respiratory Rate - - Oxygen Saturation - - Inhaled Oxygen Concentration 76.7 kg (169 lb) 11/08/2013 1:44 PM CDT overweight Weight 172.7 cm (5' 8") 11/08/2013 1:44 PM CDT Height 25.7 11/08/2013 1:44 PM CDT Body Mass Index documented in this encounter Progress Notes * Reid Stock MD - 11/08/2013 1:30 PM CDT [address] [address] November 08, 2013 Pravin Proctor MD [address] [place] [address] RE: TENISHA RUSSELL : 1935 Chart #: [id number] Visit provider: Reid Welch M.D. Visit location: [facility] Dear Dr. Proctor: I had the pleasure of seeing TENISHA RUSSELL in the office today. He is 78 years of age and presents with the following chief complaints: atrial fibrillation. HPI: Tenisha is a pleasant 78-year-old male. He has hypertension. He does not tolera te antihypertensive medications. He does have chronic memory difficulties and i s on Namenda and Aricept. He has intermittent atrial fibrillation and is on Cou madin. INR has been somewhat labile. He is quite bradycardic today with a resting pulse at 43 beats per minute. He h as not had any syncope or presyncope. Problem List: Arrhythmia Dysrhythmia -Atrial fibrillation-Permanent CAD 09/14/2002 CAD PCI LM normal, left CX [...] diagonal stenosis was not dilated. 08/04/2010 Dyslipidemia 09/30/2010 Echo 1. Normal left ventricular systolic function, with an estimated ejection fraction of 60%. 2. Normal mitral valve with mild regurgitation. Comp ared to the previous study on 09/13/2002, the inferior and inferolateral hypokine sis is no longer noted. 11/08/2013 Echo Carotid duplex CONCLUSIONS: 1. There is a stenosis, in the ran ge of 50-69%, in the left bulb and proximal ICA. 2. Mild atherosclerotic plaqu e in the right carotid system with no evidence for a significant stenosis. 3. B oth vertebral arteries are patent with antegrade flow. 4. Compared to the pr evious study dated 08/04/2012, flow velocities in the left ICA are modestly increa sed and now consistent with a 50-69% stenosis. 09/30/2010 EF Echo EF: 60 Hypertension PVD Carotid Disease 10/28/2010 PVD Cerebral angiography A near occlusion of the right internal carot id artery at its origin due to a 99% stenosis with a "string sign". There is onl y minimal antegrade filling of the cervical right ICA seen with no filling of th e intracranial ICA MCA or SHAE during the right common [...] clamp. A complete endarterectomy was carried out. 08/04/2012 PVD Carotid Duplex 1. Mild atherosclerotic plaque in the right carot id system with no evidence for a significant stenosis. 2. Moderate atheroscler otic plaque in the left carotid system with no evidence for a significant stenos is. 3. Both vertebral arteries are patent with antegrade flow. 4. Findings are similar to the carotid duplex from 11/29/2011. Tobacco Abuse Former Past Medical History: Carotid Disease Long-term anticoagulation-Warfarin Past Surgical History: Adenoidectomy Tonsillectomy Parathyroidectomy 2002 Cataract Surgery Both 2012 Final Medications: Namenda XR 28 Mg take 1 capsule (28MG) by oral route every day Coumadin 1 Mg take 1 -2 tablet daily or as directed Coumadin 5 Mg take 1 tablet by mouth daily or as directed Aricept 10 Mg take 1 tablet (10MG) by oral route every day in the evening Allergies/Intolerances: No Known Allergies Family History: Mother Cause of was CAD at age 74. 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 Gardening Tobacco: Former user of Cigarettes .50 pack(s) per day for 10.00 year(s). Quit in 1959 Alcohol: Currently drinks 1 glass of wine daily Caffeine: Caffeine use: 1 cup of tea ROS: 12-point review of systems is negative with the following exceptions: Pulmonary: Snore Neuro: Disequilibrium Hematology: Bleed or bruise easily Physical Exam: Vital Signs The patient is 5ft 8in tall, and weighs 169lbs. The BMI is 25.70. B lood pressure taken in the left arm is 160/70 mmHg in the sitting position. The pulse is 51. The rhythm is irregular. Const The patient is an overweight male. HEENT The pupils are equal and round. The patient's sclerae are clear. There i s no corneal arcus. There are no xanthelasmas noted. The oral mucosa is moist. Th e patient's neck veins are flat. Pulm Lungs are clear to auscultation. Thorax There is no evidence of pectus excavatum. Cardiac The point of maximal impulse is normal. No murmurs noted. Profound sin us bradycardia, with PVCs. Abd The patient has no abdominal tenderness to palpation. There is no hepatomegaly. There is no splenomegaly. The abdominal aorta is of normal size . EXT The extremities are warm to touch. There is no edema noted. Vasc Distal pulses 2+ throughout with no carotid bruits noted. Skin The skin is warm and dry. M/S The patient's gait is normal. Neuro/Psych The patient is alert and oriented to time, person and place. The pa tient's mood is normal. EKG: Rhythm: Sinus bradycardia and PVC's Rate: 43 QI: Patient has a diagnosis of atrial fibrillation or flutter and is prescribed an a nticoagulant. CHADS2 score is at least: 2 Impression: 1. Carotid disease. He underwent right carotid endarterectomy in the past. 2. Hypertension. Blood pressure is elevated today. At home, his blood pressure readings have been normal according to his home blood pressure monitor. 3. Coronary artery disease. Percutaneous coronary intervention was performed in 2002. No angina presently. 4. Chronically worsening mild to moderate memory problems. He is on Namenda and Aricept. 5. Intermittent atrial fibrillation. 6. Profound sinus bradycardia. Plan: 1. Holter monitor. 2. Monitor blood pressure at home. 3. Increase physical exercise. 4. He refuses to consider a statin or other pharmacologic therapy for his dyslip idemia and/or hypertension. Testing ordered: Description Interval Holter monitor - 24 hour First Available EKG Today Follow up: Reid Welch M.D. 1 Year Thank you for allowing me to participate in TENISHA RUSSELL's care. If I can be of any further assistance, please do not hesitate to contact me. Sincerely, Reid SILVERIOO/benjamin F: 11/15/2013 documented in this encounter Plan of Treatment Not on filedocumented as of this encounter Visit Diagnoses Not on filedocumented in this encounter
--- OUTSIDE RECORDS SUMMARY | 2019-08-08 14:03 | XMS REPORT | Encounter Summary ---
Author Author [facility] Organization [facility] Address Unknown Phone Unavailable Care Team Providers Care Ios Software Engineer Name Role Phone Sydni Russell PCP Encounter Details Care Team Description Date Type Department Dustin Pittman MD No Forwarding Address 11/16/2013 [facility] - Hist [facility] Visit Social History Date Tobacco Use Types Packs/Day Years Used Never Assessed Sex Assigned at Date Recorded Not on file Industry Job Start Date Occupation Not on file Not on file Not on file Travel End Travel History Travel Start No recent travel history available. documented as of this encounter Progress Notes * Dustin Pittman MD - 11/16/2013 9:39 AM CDT [place] Office [address] [place] [id number] 11/19/2013 Pravin Proctor MD [facility] [place] [address] Re: STEVEN YVONNE : 1935 Chart#: [id number] Dear Dr. Proctor: This is a followup note regarding TENISHA HARTLEYELL. He has completed his cardiac testing and I am writing to share the results with you. He had the following tests: Carotid duplex: CONCLUSIONS: 1. There is a stenosis, in the range of 50-69%, in the left bulb and proxima l ICA. 2. Mild atherosclerotic plaque in the right carotid system with no evidence for a significant stenosis. 3. Both vertebral arteries are patent with antegrade flow. 4. Compared to the previous study dated 08/04/2012, flow velocities in the lef t ICA are modestly increased and now consistent [...]
--- OUTSIDE RECORDS SUMMARY | 2019-08-08 14:03 | XMS REPORT | Encounter Summary ---
Author Author [facility] Organization [facility] Address Unknown Phone Unavailable Care Team Providers Care Cocktail Waitress Name Role Phone Sydni Russell PCP Encounter Details Care Team Description Date Type Department [facility] Provider, MD Lars 01/09/2014 [facility] - Hist [facility] Visit Social [...] Date/Time Associated Diag nosis PROTHROMBIN TIME/INR Routine 01/09/2014 10:06 AM CDT documented in this encounter Results * Prothrombin Time/INR (01/09/2014 10:06 AM CDT) INR 2.09 [facility] Comment: Lab Date: [id number] Date Coumadin/warfarin started: 20100910 Location where INR performed: Lab Lab name and contact information: Iris [address] siri r/ Dr. Proctor([facility]), [id number], [phone] Patient Status: Diagnosis 1: Atrial fibrillation [facility] Diagnosis 2: Target INR Range: 2.0-3.0 Next Lab due: [id number] Pending Procedure: NA Patient Instructions(comments): IM--- cont 3.5mg daily ck in 4 wk---pt milly v/u--sw Comments (General Comments) : CALL Sydni with results. [phone] patient daughter patient is a pharm/sd Dr. Barney office [phone]/ fax [phone] Patient Notified: Yes (Addie Mata) Result reviewed by: Stacy Jaquez Supervising provider name: Elie Mahajan Specimen Performing Organization Address City/State/Zipcode Ph one Number [facility] documented in this encounter Visit Diagnoses Not on filedocumented in this encounter
--- OUTSIDE RECORDS SUMMARY | 2019-08-08 14:03 | XMS REPORT | Encounter Summary ---
Author Author [facility] Organization [facility] Address Unknown Phone Unavailable Care Team Providers Care Market Manager Name Role Phone Beach LakeSydni head PCP Encounter Details Care Team Description Date Type Department Reid Stock MD [address] [facility] [address] [place] [address] [phone] 12/18/2013 [facility] - [facility] C Visit Social [...]
--- OUTSIDE RECORDS SUMMARY | 2019-08-08 14:03 | XMS REPORT | Encounter Summary ---
Author Author [facility] Organization [facility] Address Unknown Phone Unavailable Care Team Providers Care Clinical Appeals Reviewer Name Role Phone Arely Russell PCP Encounter Details Care Team Description Date Type Department Yo Roberts MD [address] [facility] [address] [place] [address] [phone] 03/25/2014 [facility] [...] Date/Time Associated Diag nosis PROTHROMBIN TIME/INR Routine 03/25/2014 11:10 AM CDT documented in this encounter Results * Prothrombin Time/INR (03/25/2014 11:10 AM CDT) INR 2.30 [facility] Comment: Lab Date: [id number] Date Coumadin/warfarin started: 20100910 Location where INR performed: Lab Lab name and contact information: Iris waddell/ Dr. Proctor([facility]), [id number], [phone] Patient Status: Diagnosis 1: Atrial fibrillation [facility] Diagnosis 2: Target INR Range: 2.0-3.0 Next Lab due: [id number] Pending Procedure: NA Patient Instructions(comments): IM-- cont 3.5mg daily ck in 4wk-- arely v/u---sw Comments (General Comments) : CALL Arely with results. [phone] patient daughter patient is a pharm/sd Dr. Barney office [phone]/ fax [phone] Patient Notified: Yes (Addie Mata) Result reviewed by: Addie Mata Supervising provider name: Yaw Finnegan Specimen Performing Organization Address City/State/Zipcode Ph one Number NUCMED documented in this encounter Visit Diagnoses Not on filedocumented in this encounter
--- OUTSIDE RECORDS SUMMARY | 2019-08-08 14:03 | XMS REPORT | Encounter Summary ---
Author Author [facility] Organization [facility] Address Unknown Phone Unavailable Care Team Providers Care Stock Selector Name Role Phone Sydni Russell PCP Encounter Details Care Team Description Date Type Department Reid Stock MD [address] [facility] [address] [place] [address] [phone] 11/06/2013 [facility] Visit Social History Date Tobacco Use Types Packs/Day Years Used Never Assessed Sex Assigned at Date Recorded Not on file Industry Job Start Date Occupation Not on file Not on file Not on file Travel End Travel History Travel Start No recent travel history available. documented as of this encounter Progress Notes * Reid Stock MD - 11/06/2013 3:20 PM CDT STAT 2ND REQUEST Release of Information RE: TENISHA RUSSELL : 1935 [facility] is requesting protected health informat ion from: Dr. Pravin Proctor Purpose: Continuation of care Please release records to the following PSYCHIATRIC Office: [place] [address] Fax to : Attention : Chart English Adjunct Faculty--Eva PH: [phone] Welch on 11/08 for his annual appointment, Please send the following: Most recent office visit letter, EKG, labs, including cholesterol, any cardiac t esting and/ or procedures, and most recent medication list. Thank you for your prompt attention to our request. This facsimile contains confidential information which may also be legally privi leged and which is intended only for the use of the individual or entity named a doroteo. If the reader of a facsimile is not the intended recipient or the employe e or agent responsible for delivering it to the intended recipient, you are here by on notice that you are in possession of confidential and privileged informati on. Any dissemination, distribution or copying of this facsimile is strictly pr ohibited. If you have received this facsimile in error, please immediately noti fy the sender by telephone and return the original facsimile to the sender at th e above address via the U.S. Postal Service. documented in this encounter Plan of Treatment Not on filedocumented as of this encounter Visit Diagnoses Not on filedocumented in this encounter
--- OUTSIDE RECORDS SUMMARY | 2019-08-08 14:03 | XMS REPORT | Encounter Summary ---
Author Author [facility] Organization [facility] Address Unknown Phone Unavailable Care Team Providers Care Forms Examiner Name Role Phone Sydni Russell PCP Encounter Details Care Team Description Date Type Department Yo Roberts MD [address] [facility] [address] [place] [address] [phone] 06/13/2014 [facility] - [facility] C Visit Social History Date [...] Date/Time Associated Diag nosis PROTHROMBIN TIME/INR Routine 06/13/2014 2:19 PM NOTCHING MACHINE OPERATOR documented in this encounter Results * Prothrombin Time/INR (06/13/2014 2:19 PM NOTCHING MACHINE OPERATOR) INR 2.60 [facility] Comment: Lab Date: [id number] Date Coumadin/warfarin started: 20100910 Location where INR performed: Lab Lab name and contact information: [facility] [address]i waddell/ Dr. Proctor([facility]), [id number], [phone] Patient Status: Diagnosis 1: Atrial fibrillation [facility] Diagnosis 2: Target INR Range: 2.0-3.0 Next Lab due: [id number] Pending Procedure: NA Patient Instructions(comments): IM-- cont 3.5mg daily ck in 4 wk -- Sydni v/u instruc -- etta Comments (General Comments) : CALL Sydni with results. [phone] patient daughter patient is a pharm/sd Dr. Barney office [phone]/ fax [phone] Patient Notified: Yes (Holly Melissa) Result reviewed by: Addie Mata Supervising provider name: Eriberto Michaud Specimen Performing Organization Address City/State/Zipcode Ph one Number NU[facility]ED documented in this encounter Visit Diagnoses Not on filedocumented in this encounter
--- OUTSIDE RECORDS SUMMARY | 2019-08-08 14:03 | XMS REPORT | Encounter Summary ---
Author Author [facility] Organization [facility] Address Unknown Phone Unavailable Care Team Providers Care Field Superintendent Name Role Phone Arely Russell PCP Encounter Details Care Team Description Date Type Department [facility] Provider, MD Lars 04/29/2014 [facility] - Hist [facility] HISTORIC CLINI C Visit Social History [...] Date/Time Associated Diag nosis PROTHROMBIN TIME/INR Routine 04/29/2014 8:36 AM MACHINE CANDLE MOLDER documented in this encounter Results * Prothrombin Time/INR (04/29/2014 8:36 AM MACHINE CANDLE MOLDER) INR 2.30 [facility] Comment: Lab Date: [id number] Date Coumadin/warfarin started: 20100910 Location where INR performed: Lab Lab name and contact information: [facility] [address]i waddell/ Dr. Proctor([facility]), [id number], [phone] Patient Status: Diagnosis 1: Atrial fibrillation [facility] Diagnosis 2: Target INR Range: 2.0-3.0 Next Lab due: 20140523 Pending Procedure: NA Patient Instructions(comments): IM-- cont 3.5mg daily ck in 4wk--arely v/u---sw Comments (General Comments) : CALL Arely with results. [phone] patient daughter patient is a pharm/sd Dr. Barney office [phone]/ fax [phone] Patient Notified: Yes (Addie Mata) Result reviewed by: Stacy Jaquez Supervising provider name: Dereje Billings Specimen Performing Organization Address City/State/Zipcode Ph one Number NUCMED documented in this encounter Visit Diagnoses Not on filedocumented in this encounter
--- OUTSIDE RECORDS SUMMARY | 2019-08-08 14:03 | XMS REPORT | Encounter Summary ---
Author Author [facility] Organization [facility] Address Unknown Phone Unavailable Care Team Providers Care Etcher Electrolytic Name Role Phone Sydni Russell PCP Encounter Details Care Team Description Date Type Department Fernando Bailon MD [address] [facility] [address] [place] [address] [phone] 04/18/2014 [facility] - [facility] HISTORIC CLINI C Visit Social [...] Date/Time Associated Diag nosis PROTHROMBIN TIME/INR Routine 04/18/2014 10:31 AM HOSPITALITY DIRECTOR documented in this encounter Results * Prothrombin Time/INR (04/18/2014 10:31 AM HOSPITALITY DIRECTOR) INR 2.54 [facility] Comment: Lab Date: [id number] Date Coumadin/warfarin started: 20100910 Location where INR performed: Lab Lab name and contact information: rIis waddell/ Dr. Proctor([facility]), [id number], [phone] Patient Status: Diagnosis 1: Atrial fibrillation [facility] Diagnosis 2: Target INR Range: 2.0-3.0 Next Lab due: 20140516 Pending Procedure: NA Patient Instructions(comments): IM-- cont 3.5mg daily ck in 4wk -- pt's dtr Sydni v/u instruc -- etta Comments (General Comments) : CALL Sydni with results. [phone] patient daughter patient is a pharm/sd Dr. Barney office [phone]/ fax [phone] Patient Notified: Yes (Holly Melissa) Result reviewed by: Stacy Jaquez Supervising provider name: Ian Lema Specimen Performing Organization Address City/State/Zipcode Ph one Number NUCMED documented in this encounter Visit Diagnoses Not on filedocumented in this encounter
--- OUTSIDE RECORDS SUMMARY | 2019-08-08 14:03 | XMS REPORT | Encounter Summary ---
Author Author [facility] Organization [facility] Address Unknown Phone Unavailable Care Team Providers Care Pile Driver Name Role Phone Sydni Russell PCP Encounter Details Care Team Description Date Type Department [facility] ProviderLars MD 11/16/2013 [facility] - Hist [facility] HISTORIC CLINI C Visit [...] Date/Time Associated Diag nosis PROTHROMBIN TIME/INR Routine 11/16/2013 8:56 AM CDT documented in this encounter Results * Prothrombin Time/INR (11/16/2013 8:56 AM CDT) INR 2.50 [facility] Comment: Lab Date: [id number] Date Coumadin/warfarin started: 20100910 Location where INR performed: Lab Lab name and contact information: [facility] [address] siri r/ Dr. Proctor([facility]), [id number], [phone] Patient Status: Diagnosis 1: Atrial fibrillation [facility] Diagnosis 2: Target INR Range: 2.0-3.0 Next Lab due: 20131206 Pending Procedure: NA Patient Instructions(comments): Im--- cont 3.5mg daily ck in 3 wk--spoke with Sydni v/u-lr Comments (General Comments) : CALL Sydni with results. [phone] patient daughter patient is a pharm/sd Dr. Barney office [phone]/ fax [phone] Patient Notified: Yes (Brijesh Shields) Result reviewed by: Stacy Jaquez Supervising provider name: Blane Dorantes Specimen Performing Organization Address City/State/Zipcode Ph one Number NUCMED documented in this encounter Visit Diagnoses Not on filedocumented in this encounter
--- OUTSIDE RECORDS SUMMARY | 2019-08-08 14:03 | XMS REPORT | Encounter Summary ---
Author Author [facility] Organization [facility] Address Unknown Phone Unavailable Care Team Providers Care Paper Cone Drying Machine Operator Name Role Phone Sydni Russell PCP Encounter Details Care Team Description Date Type Department Justice Cerrato MD [address] [facility] [address] [place], [place] [id number] 03/06/2014 [facility] - [facility] HISTORIC CLINI C Visit Social [...] Date/Time Associated Diag nosis PROTHROMBIN TIME/INR Routine 03/06/2014 9:21 AM CDT documented in this encounter Results * Prothrombin Time/INR (03/06/2014 9:21 AM CDT) INR 2.53 [facility] Comment: Lab Date: [id number] Date Coumadin/warfarin started: 20100910 Location where INR performed: Lab Lab name and contact information: [facility] [address] siri waddell/ Dr. Proctor([facility]), [id number], [phone] Patient Status: Diagnosis 1: Atrial fibrillation [facility] Diagnosis 2: Target INR Range: 2.0-3.0 Next Lab due: 20140403 Pending Procedure: NA Patient Instructions(comments): IM--- cont 3.5mg daily ck in 4 wk--- Sydni v/u sd Comments (General Comments) : CALL Sydni with results. [phone] patient daughter patient is a pharm/sd Dr. Barney office [phone]/ fax [phone] Patient Notified: Yes (Stacy Jaquez) Result reviewed by: Stacy Jaquez Supervising provider name: Bacilio Liriano Specimen Performing Organization Address City/State/Zipcode Ph one Number NUCMED documented in this encounter Visit Diagnoses Not on filedocumented in this encounter
--- OUTSIDE RECORDS SUMMARY | 2019-08-08 14:03 | XMS REPORT | Encounter Summary ---
Author Author [facility] Organization [facility] Address Unknown Phone Unavailable Care Team Providers Care Solutions Consultant Name Role Phone Sydni Russell PCP Encounter Details Care Team Description Date Type Department Elie Ding MD [address] [facility] [address] [place] [address] [phone] 12/14/2013 [facility]IST[facility]IC [facility]I C Visit Social [...] Date/Time Associated Diag nosis PROTHROMBIN TIME/INR Routine 12/14/2013 11:19 AM CDT documented in this encounter Results * Prothrombin Time/INR (12/14/2013 11:19 AM CDT) INR 2.13 NUCMED Comment: Lab Date: [id number] Date Coumadin/warfarin started: 20100910 Location where INR performed: Lab Lab name and contact information: Iris 4 wks siri waddell/ Dr. Proctor([facility]), [phone], [phone] Patient Status: Diagnosis 1: Atrial fibrillation [facility] Diagnosis 2: Target INR Range: 2.0-3.0 Next Lab due: 20140110 Pending Procedure: NA Patient Instructions(comments): cont 3.5mg daily and blayne 4wks-jcm -- pt's dtr Sydni v/u instruc -- etta Comments (General Comments) : CALL Sydni with results. [phone] patient daughter patient is a pharm/sd Dr. Barney office [phone]/ fax [phone] Patient Notified: Yes (Holly Melissa) Result reviewed by: Sena Francisco Supervising provider name: Eriberto Michaud Specimen Performing Organization Address City/State/Zipcode Ph one Number NUCMED documented in this encounter Visit Diagnoses Not on filedocumented in this encounter
--- OUTSIDE RECORDS SUMMARY | 2019-08-08 14:04 | XMS REPORT | Encounter Summary ---
Author Author [facility] Organization [facility] Address Unknown Phone Unavailable Care Team Providers Care Drapery Counselor Name Role Phone HickorySydni head PCP Encounter Details Care Team Description Date Type Department Reid Stock MD [address] [facility] [address] [place] [address] [phone] 07/05/2013 [facility] HISTORIC [facility] C Visit Social History [...]
--- OUTSIDE RECORDS SUMMARY | 2019-08-08 14:04 | XMS REPORT | Encounter Summary ---
Author Author [facility] Organization [facility] Address Unknown Phone Unavailable Care Team Providers Care Proposition Player Name Role Phone Sydni Russell PCP Encounter Details Care Team Description Date Type Department Maricel Urbina MD [address] [facility] [address] [place] [address] [phone] 04/05/2013 [facility] HISTORIC CLINI C Visit Social [...] Date/Time Associated Diag nosis PROTHROMBIN TIME/INR Routine 04/05/2013 10:24 AM CDT documented in this encounter Results * Prothrombin Time/INR (04/05/2013 10:24 AM CDT) INR 2.13 NUCMED Comment: Lab Date: [id number] Date Coumadin/warfarin started: 20100910 Location where INR performed: Lab Lab name and contact information: Iris waddell/ Dr. Proctor([facility]), [id number], [id number] Patient Status: Diagnosis 1: Atrial fibrillation [facility] Diagnosis 2: Target INR Range: 2.0-3.0 Next Lab due: 20130502 Pending Procedure: NA Patient Instructions(comments): cont 3.5mg daily ck in 4wks/hn//// Sydni v/u--ml Comments (General Comments) : CALL Sydni with results. [phone] patient daughter patient is a pharm/sd Dr. Barney office [phone]/ fax [phone] 08-31-11 He is having trouble with the home meter. He will be retrained over the phone. jm Patient Notified: Yes (Desi Armenta) Result reviewed by: Tanna Rothman Supervising provider name: Eriberto Carrasquillo Specimen Performing Organization Address City/State/Zipcode Ph one Number NUCMED documented in this encounter Visit Diagnoses Not on filedocumented in this encounter
--- OUTSIDE RECORDS SUMMARY | 2019-08-08 14:04 | XMS REPORT | Encounter Summary ---
Author Author [facility] Organization [facility] Address Unknown Phone Unavailable Care Team Providers Care Commercial Credit Specialist Name Role Phone Sydni Russell PCP Encounter Details Care Team Description Date Type Department Eriberto Carrasquillo MD [address] [place] [address] [phone] 06/28/2013 [facility] [...] Date/Time Associated Diag nosis PROTHROMBIN TIME/INR Routine 06/28/2013 5:11 PM COMMERCIAL DRAFTER documented in this encounter Results * Prothrombin Time/INR (06/28/2013 5:11 PM COMMERCIAL DRAFTER) INR 2.10 NUCMED Comment: Lab Date: [id number] Date Coumadin/warfarin started: 20100910 Location where INR performed: Lab Lab name and contact information: Iris waddell/ Dr. Proctor([facility]), [id number], [phone] Patient Status: Diagnosis 1: Atrial fibrillation [facility] Diagnosis 2: Target INR Range: 2.0-3.0 Next Lab due: 20130726 Pending Procedure: NA Patient Instructions(comments): cont 3.5mg daily and blayne 4wks-jcm///spoke to Sydni, she v/u-hn Comments (General Comments) : CALL Sydni with results. [phone] patient daughter patient is a pharm/sd Dr. Barney office [phone]/ fax [phone] 08-31-11 He is having trouble with the home meter. He will be retrained over the phone. Patient Notified: Yes (Tanna Rothman) Result reviewed by: Sena Francisco Supervising provider name: Eriberto Carrasquillo Specimen Performing Organization Address City/State/Zipcode Ph one Number NUCMED documented in this encounter Visit Diagnoses Not on filedocumented in this encounter
--- OUTSIDE RECORDS SUMMARY | 2019-08-08 14:04 | XMS REPORT | Encounter Summary ---
Author Author [facility] Organization [facility] Address Unknown Phone Unavailable Care Team Providers Care Machine Egg Washer Name Role Phone Piper CitySydni head PCP Encounter Details Care Team Description Date Type Department Reid Stock MD [address] [facility] [address] [place] [address] [phone] 09/20/2013 [facility] HISTORIC CLINI C Visit Social [...]
--- OUTSIDE RECORDS SUMMARY | 2019-08-08 14:04 | XMS REPORT | Encounter Summary ---
Author Author [facility] Organization [facility] Address Unknown Phone Unavailable Care Team Providers Care Seo Specialist Name Role Phone Sydni Russell PCP Encounter Details Care Team Description Date Type Department [facility] Provider, MD Lars 03/07/2013 [facility] - [facility] Visit Social History Date [...] Date/Time Associated Diag nosis PROTHROMBIN TIME/INR Routine 03/07/2013 8:34 AM CDT documented in this encounter Results * Prothrombin Time/INR (03/07/2013 8:34 AM CDT) INR 2.21 NUCMED Comment: Lab Date: [id number] Date Coumadin/warfarin started: 20100910 Location where INR performed: Lab Lab name and contact information: Iris Welch wkmariaelena waddell/ Dr. Proctor([facility]), [phone], [phone] Patient Status: Diagnosis 1: [facility] fibrillation [facility] Diagnosis 2: Target INR Range: 2.0-3.0 Next Lab due: 20130403 Pending Procedure: NA Patient Instructions(comments): cont 3.5mg daily ck in 4wks/// pt dtr v/u-ml Comments (General Comments) : CALL Sydni with results. [phone] patient daughter patient is a pharm/sd Dr. Barney office [phone]/ fax [phone] 08-31-11 He is having trouble with the home meter. He will be retrained over the phone. jm Patient Notified: Yes (Desi Armenta) Result reviewed by: Stacy Jaquez Supervising provider name: Eriberto Carrasquillo Specimen Performing Organization Address City/State/Zipcode Ph one Number NUCMED documented in this encounter Visit Diagnoses Not on filedocumented in this encounter
--- OUTSIDE RECORDS SUMMARY | 2019-08-08 14:04 | XMS REPORT | Encounter Summary ---
Author Author [facility] Organization [facility] Address Unknown Phone Unavailable Care Team Providers Care Lacquer Spray Booth Operator Name Role Phone Pravin Proctor PCP Encounter Details Care Team Description Date Type Department Dawit Ramon MD No Forwarding Address 04/12/2013 PracPart Note [facility] [address] [place] [address] Social History Date Tobacco Use Types Packs/Day Years Used Never Assessed Sex Assigned at Date Recorded Not on file Industry Job Start Date Occupation Not on file Not on file Not on file Travel End Travel History Travel Start No recent travel history available. documented as of this encounter Progress Notes * Dawit Ramon MD - 04/12/2013 2:01 PM BI APPLICATION DEVELOPER . : 02:01pm .T: pt will call to schedule an apt with [facility] [place] [facility] SO, [id number] documented in this encounter Plan of Treatment Not on filedocumented as of this encounter Visit Diagnoses Not on filedocumented in this encounter
--- OUTSIDE RECORDS SUMMARY | 2019-08-08 14:04 | XMS REPORT | Encounter Summary ---
Author Author [facility] Organization [facility] Address Unknown Phone Unavailable Care Team Providers Care Dragger Out Name Role Phone Pravin Proctor PCP Encounter Details Care Team Description Date Type Department [facility], Historical 02/13/2013 PracPart Note [facility] Social History Date Tobacco Use Types Packs/Day Years Used Never Assessed Sex Assigned at Date Recorded Not on file Industry Job Start Date Occupation Not on file Not on file Not on file Travel End Travel History Travel Start No recent travel history available. documented as of this encounter Progress Notes * [facility], Historical - 02/13/2013 8:35 AM CDT . : 08:35am PATIENT NAME: Azeem Swartz DATE OF : [birth year] AGE: 78 ye ar DATE: 02/13/13 REFERRING PHYSICIAN: Pravin Proctor REASON FOR VISIT : Memory Loss DRUG ALLERGIES: NKDA Aspirin: no Codeine: no Iodine other Dyes: no Penicillin: no Sulfa : no Other : n o BLADDER PROBLEMS: yes Frequency/BPH EYE PROBLEMS: yes Glaucoma/Cataract s AFIB/VALVE: yes STOMACH ULCERS/GASTRITIS/GERD: yes Nervous Stomach DEPRESSION/ANXIETY/BIPOLAR: yes HEART DISEASE/CORONARY DISEASE: yes [place]/Stent LIST ALL MAJOR SURGERIES, HOSPITALIZATIONS, OR ACCIDENTS:Corotid endarectomy; c ataracts; epidural hematoma. Review of Systems General Fever no Sweats no Weakness no Fatigue no Weight Loss no Pain Average pain most days (lowest) 1 2 3 4 5 6 7 8 9 10 (highest) Where does hurt? Staying the same or getting worse? Same Worse What do you take for the pain? Skin None of these apply yes Eyes / Ears / Sinuses None of these apply no Wear Glass yes Glaucoma yes Loss of hearing yes Mouth / Neck None of these apply no Wear Dentures yes Lungs None of these apply yes Heart / Blood Vessels None of these apply no Heart murmur RLS Gastrointestinal None of these apply yes Neurological and Spine Back None of these apply no Dominant Right Hand yes Forgetfulness yes Endocrine / Glands None of these apply yes Input curing bin operator Patient Signature Date _ INVALID LINK:[id number]\azeem swartz hhx [id number] [email or web address].tif documented in this encounter Plan of Treatment Not on filedocumented as of this encounter Visit Diagnoses Not on filedocumented in this encounter
--- OUTSIDE RECORDS SUMMARY | 2019-08-08 14:04 | XMS REPORT | Encounter Summary ---
Author Author [facility] Organization [facility] Address Unknown Phone Unavailable Care Team Providers Care Mental Retardation Nurse Name Role Phone Sydni Russell PCP Encounter Details Care Team Description Date Type Department [facility] Provider, MD Lars 05/17/2013 [facility] - Hist [facility] HISTORIC CLINI C Visit Social History [...] Date/Time Associated Diag nosis PROTHROMBIN TIME/INR Routine 05/17/2013 9:38 AM SITE SUPERVISOR documented in this encounter Results * Prothrombin Time/INR (05/17/2013 9:38 AM SITE SUPERVISOR) INR 1.86 NUCMED Comment: Lab Date: [id number] Date Coumadin/warfarin started: 20100910 Location where INR performed: Lab Lab name and contact information: Iris 4 wks siri r/ Dr. Proctor([facility]), [id number], [phone] Patient Status: Diagnosis 1: Atrial fibrillation [facility] Diagnosis 2: Target INR Range: 2.0-3.0 Next Lab due: 20130531 Pending Procedure: NA Patient Instructions(comments): take 5mg today then cont 3.5mg daily ck in 2wks///spoke to Sydni, she v/u-hn(missed one dose) Comments (General Comments) : CALL Sydni with results. [phone] patient daughter patient is a pharm/sd Dr. Barney office [phone]/ fax [phone] 08-31-11 He is having trouble with the home meter. He will be retrained over the phone. jm Patient Notified: Yes (Tanna Rothman) Result reviewed by: Stacy Jaquez Supervising provider name: Eriberto Carrasquillo Specimen Performing Organization Address City/State/Zipcode Ph one Number NUCMED documented in this encounter Visit Diagnoses Not on filedocumented in this encounter
--- OUTSIDE RECORDS SUMMARY | 2019-08-08 14:04 | XMS REPORT | Encounter Summary ---
Author Author [facility] Organization [facility] Address Unknown Phone Unavailable Care Team Providers Care Rope Tow Operator Name Role Phone Sydni Russell PCP Encounter Details Care Team Description Date Type Department [facility] ProviderLars MD 07/11/2013 [facility] - Hist [facility]ORIC CL[facility] C Visit Social History [...] Date/Time Associated Diag nosis PROTHROMBIN TIME/INR Routine 07/11/2013 2:12 PM DIRECTOR AIRPORT OPERATIONS documented in this encounter Results * Prothrombin Time/INR (07/11/2013 2:12 PM DIRECTOR AIRPORT OPERATIONS) INR 2.30 NUCMED Comment: Lab Date: [id number] Date Coumadin/warfarin started: 20100910 Location where INR performed: Lab Lab name and contact information: Iris 4 wks siri waddell/ Dr. Proctor([facility]), [phone], [phone] Patient Status: Diagnosis 1: Atrial fibrillation [facility] Diagnosis 2: Target INR Range: 2.0-3.0 Next Lab due: 20130808 Pending Procedure: NA Patient Instructions(comments): cont 3.5mg daily and blayne 4wks--- Sydni v/u sd Comments (General Comments) : CALL Sydni with results. [phone] patient daughter patient is a pharm/sd Dr. Barney office [phone]/ fax [phone] 08-31-11 He is having trouble with the home meter. He will be retrained over the phone. jm Patient Notified: Yes (Stacy Jaquez) Result reviewed by: Stacy Jaquez Supervising provider name: Jed Christiansen Specimen Performing Organization Address City/State/Zipcode Ph one Number NUCMED documented in this encounter Visit Diagnoses Not on filedocumented in this encounter
--- OUTSIDE RECORDS SUMMARY | 2019-08-08 14:04 | XMS REPORT | Encounter Summary ---
Author Author [facility] Organization [facility] Address Unknown Phone Unavailable Care Team Providers Care Lacing Operator Name Role Phone Sydni Russell PCP Encounter Details Care Team Description Date [place] [address] [facility] [address] [place], [place] [address] 10/19/2013 [facility] HISTORIC [...] Date/Time Associated Diag nosis PROTHROMBIN TIME/INR Routine 10/19/2013 3:22 PM CDT documented in this encounter Results * Prothrombin Time/INR (10/19/2013 3:22 PM CDT) INR 3.00 NUCMED Comment: Lab Date: [id number] Date Coumadin/warfarin started: 20100910 Location where INR performed: Lab Lab name and contact information: Iris 4 wks siri waddell/ Dr. Proctor([facility]), [id number], [id number] Patient Status: Diagnosis 1: Atrial fibrillation [facility] Diagnosis 2: Target INR Range: 2.0-3.0 Next Lab due: 20131115 Pending Procedure: NA Patient Instructions(comments): cont 3.5mg daily and blayne 4wks (sent new order to [facility])-jcm--patient verbally understood--etta Comments (General Comments) : CALL Sydni with results. [phone] patient daughter patient is a pharm/sd Dr. Barney office [phone]/ fax [phone] Patient Notified: Yes (Holly Melissa) Result reviewed by: Sena Francisco Supervising provider name: Chirag Urrutia Specimen Performing Organization Address City/State/Zipcode Ph one Number NUCMED documented in this encounter Visit Diagnoses Not on filedocumented in this encounter
--- OUTSIDE RECORDS SUMMARY | 2019-08-08 14:04 | XMS REPORT | Encounter Summary ---
Author Author [facility] Organization [facility] Address Unknown Phone Unavailable Care Team Providers Care Health Technical Writer Name Role Phone Pravin Proctor PCP Encounter Details Care Team Description Date Type Department [facility], Historical 02/13/2013 PracPart Note [facility] Social History Date Tobacco Use Types Packs/Day Years Used Never Assessed Sex Assigned at Date Recorded Not on file Industry Job Start Date Occupation Not on file Not on file Not on file Travel End Travel History Travel Start No recent travel history available. documented as of this encounter Progress Notes * [facility], Historical - 02/13/2013 8:40 AM CDT . 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 no documented in this encounter Plan of Treatment Not on filedocumented as of this encounter Visit Diagnoses Not on filedocumented in this encounter
--- OUTSIDE RECORDS SUMMARY | 2019-08-08 14:04 | XMS REPORT | Encounter Summary ---
Author Author [facility] Organization [facility] Address Unknown Phone Unavailable Care Team Providers Care Race Board Attendant Name Role Phone YvonneSydni head PCP Encounter Details Care Team Description Date Type Department [facility] ProviderLars MD 08/23/2013 [facility] - Hist [facility] HISTORIC CLINI C Visit Social [...] Date/Time Associated Diag nosis PROTHROMBIN TIME/INR Routine 08/10/2013 9:17 AM RIGGING AND CONTROLS AIRCRAFT MECHANIC documented in this encounter Results * Prothrombin Time/INR (08/10/2013 9:17 AM RIGGING AND CONTROLS AIRCRAFT MECHANIC) INR 1.94 NUCMED Comment: Lab Date: [id number] Date Coumadin/warfarin started: 20100910 Location where INR performed: Lab Lab name and contact information: Iris 4 wks siri waddell/ Dr. Proctor([facility]), [id number], [phone] Patient Status: Diagnosis 1: Atrial fibrillation [facility] Diagnosis 2: Target INR Range: 2.0-3.0 Next Lab due: 20130823 Pending Procedure: NA Patient Instructions(comments): IM--- cont 3.5mg daily ck in 2 wk/// Sydni v/u-jcm Comments (General Comments) : CALL Sydni with results. [phone] patient daughter patient is a pharm/sd Dr. Barney office [phone]/ fax [phone] 08-31-11 He is having trouble with the home meter. He will be retrained over the phone. jm Patient Notified: Yes (Sena Francisco) Result reviewed by: Stacy Jaquez Supervising provider name: Gustavo Mirza Specimen Performing Organization Address City/State/Zipcode Ph one Number NUCMED documented in this encounter Visit Diagnoses Not on filedocumented in this encounter
--- OUTSIDE RECORDS SUMMARY | 2019-08-08 14:04 | XMS REPORT | Encounter Summary ---
Author Author [facility] Organization [facility] Address Unknown Phone Unavailable Care Team Providers Care Log Clerk Name Role Phone Sydni Russell PCP Encounter Details Care Team Description Date Type Department Eriberto Carrasquillo MD [address] [place] [address] [phone] 05/16/2013 [facility] [...] Date/Time Associated Diag nosis PROTHROMBIN TIME/INR Routine 05/16/2013 4:14 PM WARP TYING MACHINE TENDER documented in this encounter Results * Prothrombin Time/INR (05/16/2013 4:14 PM WARP TYING MACHINE TENDER) INR NA NUCMED Comment: Lab Date: [id number] Date Coumadin/warfarin started: 20100910 Location where INR performed: Lab Lab name and contact information: Iris waddell/ Dr. Proctor([facility]), [id number], [phone] Patient Status: Diagnosis 1: Atrial fibrillation [facility] Diagnosis 2: Target INR Range: 2.0-3.0 Next Lab due: 20130516 Pending Procedure: NA Patient Instructions(comments): pt drawn today, results pending-[facility] Comments (General Comments) : CALL Sydni with results. [phone] patient daughter patient is a pharm/sd Dr. Barney office [phone]/ fax [phone] 08-31-11 He is having trouble with the home meter. He will be retrained over the phone. jm Result reviewed by: Supervising provider name: Specimen Performing Organization Address City/State/Zipcode Ph one Number NUCMED documented in this encounter Visit Diagnoses Not on filedocumented in this encounter
--- OUTSIDE RECORDS SUMMARY | 2019-08-08 14:04 | XMS REPORT | Encounter Summary ---
Author Author [facility] Organization [facility] Address Unknown Phone Unavailable Care Team Providers Care Ceramic Worker Name Role Phone Sydni Russell PCP Encounter Details Care Team Description Date Type Department Eriberto Carrasquillo MD [address] [place] [address] [phone] 05/28/2013 [facility] [...] Date/Time Associated Diag nosis PROTHROMBIN TIME/INR Routine 05/28/2013 4:36 PM FILLER SHAKER documented in this encounter Results * Prothrombin Time/INR (05/28/2013 4:36 PM FILLER SHAKER) INR 2.26 NUCMED Comment: Lab Date: [id number] Date Coumadin/warfarin started: 20100910 Location where INR performed: Lab Lab name and contact information: Iris waddell/ Dr. Proctor([facility]), [id number], [phone] Patient Status: Diagnosis 1: Atrial fibrillation [facility] Diagnosis 2: Target INR Range: 2.0-3.0 Next Lab due: 20130618 Pending Procedure: NA Patient Instructions(comments): cont 3.5mg daily and blayne 3wks; Sydni v/u-jcm Comments (General Comments) : CALL Sydni with results. [phone] patient daughter patient is a pharm/sd Dr. Barney office [phone]/ fax [phone] 08-31-11 He is having trouble with the home meter. He will be retrained over the phone. jm Patient Notified: Yes (Sena Francisco) Result reviewed by: Sena Francisco Supervising provider name: Eriberto Carrasquillo Specimen Performing Organization Address City/State/Zipcode Ph one Number NUCMED documented in this encounter Visit Diagnoses Not on filedocumented in this encounter
--- OUTSIDE RECORDS SUMMARY | 2019-08-08 14:04 | XMS REPORT | Encounter Summary ---
Author Author [facility] Organization [facility] Address Unknown Phone Unavailable Care Team Providers Care Unclaimed Property Manager Name Role Phone YvonneSydni head PCP Encounter Details Care Team Description Date Type Department [facility] ProviderLars MD 06/11/2013 [facility] - Hist [facility]IC [facility] C Visit Social History [...] Date/Time Associated Diag nosis PROTHROMBIN TIME/INR Routine 06/11/2013 8:50 AM FILLING HAND documented in this encounter Results * Prothrombin Time/INR (06/11/2013 8:50 AM FILLING HAND) INR 2.10 NUCMED Comment: Lab Date: [id number] Date Coumadin/warfarin started: 20100910 Location where INR performed: Lab Lab name and contact information: Iris 4 wks siri r/ Dr. Proctor([facility]), [phone], [phone] Patient Status: Diagnosis 1: Atrial fibrillation [facility] Diagnosis 2: Target INR Range: 2.0-3.0 Next Lab due: [id number] Pending Procedure: NA Patient Instructions(comments): cont 3.5mg daily and blayne 4wks///spoke to dtr Tyree, she v/u of instructions-hn Comments (General Comments) : CALL Sydni with results. [phone] patient daughter patient is a pharm/sd Dr. Barney office [phone]/ fax [phone] 08-31-11 He is having trouble with the home meter. He will be retrained over the phone. jm Patient Notified: Yes (Tanna Rothman) Result reviewed by: Stacy Jaquez Supervising provider name: Ian Fair Specimen Performing Organization Address City/State/Zipcode Ph one Number NUCMED documented in this encounter Visit Diagnoses Not on filedocumented in this encounter
--- OUTSIDE RECORDS SUMMARY | 2019-08-08 14:04 | XMS REPORT | Encounter Summary ---
Author Author [facility] Organization [facility] Address Unknown Phone Unavailable Care Team Providers Care Calender Roll Operator Name Role Phone Pravin Proctor PCP Encounter Details Care Team Description Date Type Department Dawit Ramon MD No Forwarding Address 07/06/2013 PracPart Note [facility] [address] [place] [address] Social History Date Tobacco Use Types Packs/Day Years Used Never Assessed Sex Assigned at Date Recorded Not on file Industry Job Start Date Occupation Not on file Not on file Not on file Travel End Travel History Travel Start No recent travel history available. documented as of this encounter Progress Notes * Dawit Ramon MD - 07/06/2013 10:54 AM BLINTZE ROLLER . :10:54AM .T:FYI call from patient's daughter From: Dawit Ramon ([facility]) Originated by: Dawit Ramon ([facility]) Sent: 014 at 10:54AM To: Jing Flores ([facility]) Type: CHART Priority: 3 Subject: FYI call from patient's daughter ok --- will continue to monitor -- can come back at any time Original Message: From: PO To: [facility] Subject: FYI call from patient's daughter Priority: 3 Date: 07/06/2013 Nurse Note: PO Providers: : Physician Response: Patient Patient Business Last Visit 04/12/13 Next Visit Reason for Call: FYI - Dr. Sydni Russell, daughter of this 78 year old male reports by phone yonis t they increased the patient's Aricept to 10mg daily as well as have initiated a nd are titrating Namenda XR, adding the latter as they felt he was really declin ing. She notes he really has no short term memory whatsoever. She will keep you updated - po 04/12/13 Pravin Proctor MD [facility] [place] [address] RE: Azeem Russell : [address] Proctor: I saw your patient Azeem Russell, date of 31 today in neurological follow up. The following medication was reported to me by the patient and may assist you: Current Medications: Rx: ARICEPT 5 mg 1 tab daily Rx: CUMADIN 3.5MG 1TAB DAILY The patient's vital signs taken today in my office are as follows: Bp: 137/70,Right Arm, Pulse: 52 Temperature: 97.4 F, Weight: 169 lbs Azeem Russell was seen in follow up on 04/12/13 at our [facility] in the presence of his and daughter ( Georgette Manuelell) on 04/12/13 for continued evaluation of cognitive dysfunction over the past two years with gradual onset and progressio n. He also has a history of hypertension, coronary disease, myocardial infarcti on with angioplasty/stent in 2002, dyslipidemia, atrial fibrillation on Coumadin , and right carotid endarterectomy in 2010 for asymptomatic tight carotid stenos is, benign prostatic hypertrophy, and depression with anxiety. Since his last visit, he has undergone an MRI of the brain which does show chronic small vessel disease as well as generalized atrophy beyond age, normal B12 and folate. He continues to have difficulty with short term memory which seems to fluctuate fro m day to day. Sometimes he cannot find his keys. He does have some cold hands. He also has some picking at objects particularly when he seems to be in deep s leep. This might be a REM behavior disorder. I would like to have him undergo a sleep study before entertaining thoughts of treatments. He does take melatoni n. There was some consideration for restless legs but this does not seem to be that modality. As before, he has difficulty remembering names, numbers and obje cts. He has difficulty operating a presley register and computer. Neuromuscular r emains the same. Vitamin D levels have been normal. Today he missed the day of the week by one and missed the date. He knew month a nd year and season. He remembered 0 of 3 objects after 3 minutes. He missed on e letter spelling world backwards as before. He was able to name, repeat and fo llow directions. He could come up with the name of President Jillian. He knew th e place but did not now what floor he was on. At this point, Azeem has not increased his Aricept beyond 5mg daily. He will d o so now to 10mg which will be his maintenance dose. The next consideration teofilo ht be adding Namenda to it. They will think about a sleep study with respect to his behavior at night. I will see him in 3 months or sooner. Sincerely, :isidoro CC: Reid Tan M.D. [facility] [address] [place] [id number] documented in this encounter Plan of Treatment Not on filedocumented as of this encounter Visit Diagnoses Not on filedocumented in this encounter
--- OUTSIDE RECORDS SUMMARY | 2019-08-08 14:04 | XMS REPORT | Encounter Summary ---
Author Author [facility] Organization [facility] Address Unknown Phone Unavailable Care Team Providers Care Checker And Packer Name Role Phone Pravin Proctor PCP Encounter Details Care Team Description Date Type Department [facility], Historical 02/13/2013 PracPart Note [facility] Social History Date Tobacco Use Types Packs/Day Years Used Never Assessed Sex Assigned at Date Recorded Not on file Industry Job Start Date Occupation Not on file Not on file Not on file Travel End Travel History Travel Start No recent travel history available. documented as of this encounter Progress Notes * [facility], Historical - 02/13/2013 8:41 AM CDT . : 08:41am ADOPTED documented in this encounter Plan of Treatment Not on filedocumented as of this encounter Visit Diagnoses Not on filedocumented in this encounter
--- OUTSIDE RECORDS SUMMARY | 2019-08-08 14:04 | XMS REPORT | Encounter Summary ---
Author Author [facility] Organization [facility] Address Unknown Phone Unavailable Care Team Providers Care Tank Builder And Erector Name Role Phone Sydni Russell PCP Encounter Details Care Team Description Date Type Department [facility] ProviderLars MD 09/04/2013 [facility] - Hist [facility] H[facility]IC [facility]I C Visit Social History [...] Date/Time Associated Diag nosis PROTHROMBIN TIME/INR Routine 09/04/2013 11:14 AM CDT documented in this encounter Results * Prothrombin Time/INR (09/04/2013 11:14 AM CDT) INR 2.30 NUCMED Comment: Lab Date: [id number] Date Coumadin/warfarin started: 20100910 Location where INR performed: Lab Lab name and contact information: Iris 4 wks siri r/ Dr. Proctor([facility]), [id number], [id number] Patient Status: Diagnosis 1: Atrial fibrillation [facility] Diagnosis 2: Target INR Range: 2.0-3.0 Next Lab due: [id number] Pending Procedure: NA Patient Instructions(comments): IM--- cont 3.5mg daily ck in 4 wk----Sydni v/u sd Comments (General Comments) : CALL Sydni with results. [phone] patient daughter patient is a pharm/sd Dr. Barney office [phone]/ fax [phone] 08-31-11 He is having trouble with the home meter. He will be retrained over the phone. jm Patient Notified: Yes (Stacy Jaquez) Result reviewed by: Stacy Jaquez Supervising provider name: Eriberto Carrasquillo Specimen Performing Organization Address City/State/Zipcode Ph one Number NUCMED documented in this encounter Visit Diagnoses Not on filedocumented in this encounter
--- OUTSIDE RECORDS SUMMARY | 2019-08-08 14:04 | XMS REPORT | Encounter Summary ---
Author Author [facility] Organization [facility] Address Unknown Phone Unavailable Care Team Providers Care Motor Mechanic Name Role Phone YvonneSydni head PCP Encounter Details Care Team Description Date Type Department [facility] ProviderLars MD 10/19/2013 [facility] - Hist [facility] HISTORIC [...] Date/Time Associated Diag nosis PROTHROMBIN TIME/INR Routine 10/05/2013 8:19 AM CDT documented in this encounter Results * Prothrombin Time/INR (10/05/2013 8:19 AM CDT) INR 3.03 NUCMED Comment: Lab Date: [id number] Date Coumadin/warfarin started: 20100910 Location where INR performed: Lab Lab name and contact information: Iris 4 wks siri r/ Dr. Proctor([facility]), [phone], [phone] Patient Status: Diagnosis 1: Atrial fibrillation [facility] Diagnosis 2: Target INR Range: 2.0-3.0 Next Lab due: [id number] Pending Procedure: NA Patient Instructions(comments): IM--- cont 3.5mg daily ck in 2 wk///spoke to dtr, she v/u-hn Comments (General Comments) : CALL Sydni with results. [phone] patient daughter patient is a pharm/sd Dr. Barney office [phone]/ fax [phone] Patient Notified: Yes (Tanna Rothman) Result reviewed by: Stacy Jaquez Supervising provider name: Yaw Finnegan Specimen Performing Organization Address City/State/Zipcode Ph one Number NUCMED documented in this encounter Visit Diagnoses Not on filedocumented in this encounter
--- OUTSIDE RECORDS SUMMARY | 2019-08-08 14:04 | XMS REPORT | Encounter Summary ---
Author Author [facility] Organization [facility] Address Unknown Phone Unavailable Care Team Providers Care Invasive Manager Name Role Phone Sydni Russell PCP Encounter Details Care Team Description Date Type Department [facility] ProviderLars MD 11/01/2013 [facility] - Hist [facility] HIST[facility]IC CLINI C Visit Social History [...] Date/Time Associated Diag nosis PROTHROMBIN TIME/INR Routine 11/01/2013 9:42 AM CDT documented in this encounter Results * Prothrombin Time/INR (11/01/2013 9:42 AM CDT) INR 1.48 NUCMED Comment: Lab Date: [id number] Date Coumadin/warfarin started: 20100910 Location where INR performed: Lab Lab name and contact information: Iris 4 wks siri waddell/ Dr. Proctor([facility]), [id number], [id number] Patient Status: Diagnosis 1: Atrial fibrillation [facility] Diagnosis 2: Target INR Range: 2.0-3.0 Next Lab due: 20131115 Pending Procedure: NA Patient Instructions(comments): IM-- miss or holding? take 5mg today and tomorrow then resume 3.5mg daily ck in 2 wk--pt's daughter Sydni v/u--etta Comments (General Comments) : CALL Sydni with results. [phone] patient daughter patient is a pharm/sd Dr. Barney office [phone]/ fax [phone] Patient Notified: Yes (Holly Melissa) Result reviewed by: Stacy Jaquez Supervising provider name: Eriberto Carrasquillo Specimen Performing Organization Address City/State/Zipcode Ph one Number NUCMED documented in this encounter Visit Diagnoses Not on filedocumented in this encounter
--- OUTSIDE RECORDS SUMMARY | 2019-08-08 14:04 | XMS REPORT | Encounter Summary ---
Author Author [facility] Organization [facility] Address Unknown Phone Unavailable Care Team Providers Care Test Operator Name Role Phone Syndi Russell PCP Encounter Details Care Team Description Date [place] [address] [facility] [address] [place] [address] [phone] 09/27/2013 [facility] [...] Date/Time Associated Diag nosis PROTHROMBIN TIME/INR Routine 09/27/2013 10:28 AM CDT documented in this encounter Results * Prothrombin Time/INR (09/27/2013 10:28 AM CDT) INR 2.30 NUCMED Comment: Lab Date: [id number] Date Coumadin/warfarin started: 20100910 Location where INR performed: Lab Lab name and contact information: Iris waddell/ Dr. Proctor([facility]), [id number], [phone] Patient Status: Diagnosis 1: Atrial fibrillation [facility] Diagnosis 2: Target INR Range: 2.0-3.0 Next Lab due: 20131025 Pending Procedure: NA Patient Instructions(comments): IM--- cont 3.5mg daily ck in 4 wk/// dtr v/u-jcm Comments (General Comments) : CALL Sydni with results. [phone] patient daughter patient is a pharm/sd Dr. Barney office [phone]/ fax [phone] Patient Notified: Yes (Sena Francisco) Result reviewed by: Stacy Jaquez Supervising provider name: Eriberto Carrasquillo Specimen Performing Organization Address City/State/Zipcode Ph one Number NUCMED documented in this encounter Visit Diagnoses Not on filedocumented in this encounter
--- OUTSIDE RECORDS SUMMARY | 2019-08-08 14:04 | XMS REPORT | Encounter Summary ---
Author Author [facility] Organization [facility] Address Unknown Phone Unavailable Care Team Providers Care Personal Security Specialist Name Role Phone Sydni Russell PCP Encounter Details Care Team Description Date Type Department [facility] Provider, MD Lars 04/05/2013 [facility] - Hist [facility] HISTORIC CLINI C Visit Social [...] Date/Time Associated Diag nosis PROTHROMBIN TIME/INR Routine 03/19/2013 10:05 AM CDT documented in this encounter Results * Prothrombin Time/INR (03/19/2013 10:05 AM CDT) INR 2.30 NUCMED Comment: Lab Date: [id number] Date Coumadin/warfarin started: 20100910 Location where INR performed: Lab Lab name and contact information: Iris Welch wkmariaelena waddell/ Dr. Proctor([facility]), [id number], [id number] Patient Status: Diagnosis 1: Atrial fibrillation [facility] Diagnosis 2: Target INR Range: 2.0-3.0 Next Lab due: 20130414 Pending Procedure: NA Patient Instructions(comments): cont 3.5mg daily ck in 4wks///// Sydni v/u--ml Comments (General Comments) : CALL Sydni with results. [phone] patient daughter patient is a pharm/sd Dr. Barney office [phone]/ fax [phone] 08-31-11 He is having trouble with the home meter. He will be retrained over the phone. jm Patient Notified: Yes (Desi Armenta) Result reviewed by: Stacy Jaqeuz Supervising provider name: Neema Ayoub Specimen Performing Organization Address City/State/Zipcode Ph one Number NUCMED documented in this encounter Visit Diagnoses Not on filedocumented in this encounter
--- OUTSIDE RECORDS SUMMARY | 2019-08-08 14:04 | XMS REPORT | Encounter Summary ---
Author Author [facility] Organization [facility] Address Unknown Phone Unavailable Care Team Providers Care Division Toll Wire Chief Name Role Phone Sydni Russell PCP Encounter Details Care Team Description Date Type Department [facility] ProviderLars MD 08/24/2013 [facility] [...] Date/Time Associated Diag nosis PROTHROMBIN TIME/INR Routine 08/24/2013 10:46 AM CDT documented in this encounter Results * Prothrombin Time/INR (08/24/2013 10:46 AM CDT) INR 2.47 NUCMED Comment: Lab Date: [id number] Date Coumadin/warfarin started: 20100910 Location where INR performed: Lab Lab name and contact information: Iris 4 wks siri r/ Dr. Proctor([facility]), [phone], [phone] Patient Status: Diagnosis 1: Atrial fibrillation [facility] Diagnosis 2: Target INR Range: 2.0-3.0 Next Lab due: 20130913 Pending Procedure: NA Patient Instructions(comments): IM--- cont 3.5mg daily ck in 3 wk///spoke to Sydni she v/u of dosing-hn Comments (General Comments) : CALL Sydni with results. [phone] patient daughter patient is a pharm/sd Dr. Barney office [phone]/ fax [phone] 08-31-11 He is having trouble with the home meter. He will be retrained over the phone. jm Patient Notified: Yes (Tanna Rothman) Result reviewed by: Stacy Jaquez Supervising provider name: Eriberto Carrasquillo Specimen Performing Organization Address City/State/Zipcode Ph one Number NUCMED documented in this encounter Visit Diagnoses Not on filedocumented in this encounter
--- OUTSIDE RECORDS SUMMARY | 2019-08-08 14:04 | XMS REPORT | Encounter Summary ---
Author Author [facility] Organization [facility] Address Unknown Phone Unavailable Care Team Providers Care Map Colorer Name Role Phone Sydni Russell PCP Encounter Details Care Team Description Date [place] [address] [facility] [address] [place] [address] [phone] 04/18/2013 [facility] - Hist [facility]ORIC CLINI C Visit Social [...] Date/Time Associated Diag nosis PROTHROMBIN TIME/INR Routine 04/18/2013 1:56 PM X RAY NURSE documented in this encounter Results * Prothrombin Time/INR (04/18/2013 1:56 PM X RAY NURSE) INR 2.20 NUCMED Comment: Lab Date: [id number] Date Coumadin/warfarin started: 20100910 Location where INR performed: Lab Lab name and contact information: Iris Welch wks siri waddell/ Dr. Proctor([facility]), [id number], [phone] Patient Status: Diagnosis 1: Atrial fibrillation [facility] Diagnosis 2: Target INR Range: 2.0-3.0 Next Lab due: 20130516 Pending Procedure: NA Patient Instructions(comments): cont 3.5mg daily ck in 4wks---Sydni v/u sd Comments (General Comments) : CALL Sydni with results. [phone] patient daughter patient is a pharm/sd Dr. Barney office [phone]/ fax [phone] 08-31-11 He is having trouble with the home meter. He will be retrained over the phone. jm Patient Notified: Yes (Stacy Jaquez) Result reviewed by: Stacy Jaquez Supervising provider name: Eriberto Carrasquillo Specimen Performing Organization Address City/State/Zipcode Ph one Number NUCMED documented in this encounter Visit Diagnoses Not on filedocumented in this encounter
--- OUTSIDE RECORDS SUMMARY | 2019-08-08 14:04 | XMS REPORT | Encounter Summary ---
Author Author [facility] Organization [facility] Address Unknown Phone Unavailable Care Team Providers Care Aging Room Operator Name Role Phone Sydni Russell PCP Encounter Details Care Team Description Date Type Department Dawit Ramon MD No Forwarding Address 04/12/2013 Hist-Visit [facility] Social History Date Tobacco Use Types Packs/Day Years Used Never Assessed Sex Assigned at Date Recorded Not on file Industry Job Start Date Occupation Not on file Not on file Not on file Travel End Travel History Travel Start No recent travel history available. documented as of this encounter Last Filed Vital Signs Reading Time Taken Comments Vital Sign 137/70 04/12/2013 1:17 PM OPERATION SHIFT SUPERVISOR Blood Pressure 52 04/12/2013 1:17 PM OPERATION SHIFT SUPERVISOR Pulse 36.3 C (97.4 F) 04/12/2013 1:17 PM OPERATION SHIFT SUPERVISOR Temperature - - Respiratory Rate - - Oxygen Saturation - - Inhaled Oxygen Concentration 76.7 kg (169 lb) 04/12/2013 1:17 PM OPERATION SHIFT SUPERVISOR Weight - - Height 25.7 02/13/2013 1:32 PM CDT Body Mass Index documented in this encounter Progress Notes * Dawit Ramon MD - 04/12/2013 3:12 PM OPERATION SHIFT SUPERVISOR . : 03:12pm .T: Return Patient .PV:SMA [facility] [address] [place] [address] [facility] [address] [place] [address] [place], [place] [address] [place] [address] [place] [address] Inga Ramon M.D. Dawit Ramon M.D. Patricia Slaughter M.D. Ольга Fox M.D. Neema Nguyễn D.O. Meet Zamorano M.D. Kalee Cuellar M.D. Jade Chavez M.D. Urban Sanchez M.D. Sherrie Leger, MSN,RN,ANP, [facility] Pravin Herrmann M.D., Ph.D. Fernando Paige M.D. Edson Flores M.D. . 04/12/13 Pravin Proctor MD [facility] [place] [address] RE: Azeem Russell : [address] Proctor: I saw your patient Azeem Russell, date of 31 today in neurological follow up. The following medication was reported to me by the patient and may assist you: P1 Current Medications: Rx: ARICEPT 5 mg 1 tab daily Rx: CUMADIN 3.5MG 1TAB DAILY The patient's vital signs taken today in my office are as follows: Bp: 137/70, Right Arm, Pulse: 52 Temperature: 97.4 F, Weight: 169 lbs Azeem Russell was seen in follow up on 04/12/13 at [facility] in the presence of his and daughter ( Georgette Russell) on 04/12/13 for continued evaluation of cognitive [...] :isidoro CC: Reid Tan M.D. [facility] [address] [place] [phone] # SIGNED BY Dawit Ramon MD (SMA) 04/13/2013 10:10AM ATION SHIFT SUPERVISOR documented in this encounter Plan of Treatment Not on filedocumented as of this encounter Visit Diagnoses Not on filedocumented in this encounter
--- OUTSIDE RECORDS SUMMARY | 2019-08-08 14:05 | XMS REPORT | Encounter Summary ---
Author Author [facility] Organization [facility] Address Unknown Phone Unavailable Care Team Providers Care Welder Explosion Name Role Phone Sydni Russell PCP Encounter Details Care Team Description Date Type Department [facility], MD Lars 09/28/2012 [facility] - Hist [facility]ORIC CLINI C Visit Social [...] Date/Time Associated Diag nosis PROTHROMBIN TIME/INR Routine 09/28/2012 4:07 PM CDT documented in this encounter Results * Prothrombin Time/INR (09/28/2012 4:07 PM CDT) INR NA NUCMED Comment: Lab Date: [id number] Date Coumadin/warfarin started: 20100910 Location where INR performed: Lab Lab name and contact information: Iris 4 wks siri waddell/ Dr. Proctor([facility]), [phone], [phone] Patient Status: Diagnosis 1: Atrial fibrillation [facility] Diagnosis 2: Target INR Range: 2.0-3.0 Next Lab due: 20121003 Pending Procedure: NA Patient Instructions(comments): Sydni will have to check on TUe/sd Comments (General Comments) : CALL Sydni with results. [phone]. 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 Barney office [phone]/ fax [phone] 08-31-11 He is having trouble with the home meter. He will be retrained over the phone. jm Patient Notified: Yes (Stacy Jaquez) Result reviewed by: Stacy Jaquez Supervising provider name: Specimen Performing Organization Address City/State/Zipcode Ph one Number NUCMED documented in this encounter Visit Diagnoses Not on filedocumented in this encounter
--- OUTSIDE RECORDS SUMMARY | 2019-08-08 14:05 | XMS REPORT | Encounter Summary ---
Author Author [facility] Organization [facility] Address Unknown Phone Unavailable Care Team Providers Care Continuing Education Dean Name Role Phone Sydni Russell PCP Encounter Details Care Team Description Date Type Department Eriberto Carrasquillo MD [address] [place] [address] [phone] 12/26/2012 [facility] [...] Date/Time Associated Diag nosis PROTHROMBIN TIME/INR Routine 12/26/2012 3:41 PM CDT documented in this encounter Results * Prothrombin Time/INR (12/26/2012 3:41 PM CDT) INR 2.65 NUCMED Comment: Lab Date: 20121226 Date Coumadin/warfarin started: 20100910 Location where INR performed: Lab Lab name and contact information: [facility] [address] siri waddell/ Dr. Proctor([facility]), [phone], [phone] Patient Status: Diagnosis 1: Atrial fibrillation [facility] Diagnosis 2: Target INR Range: 2.0-3.0 Next Lab due: 20130116 Pending Procedure: NA Patient Instructions(comments): cont 3.5mg daily and blayne 3wks-jcm///spoke to Sydni v/u---hn Comments (General Comments) : CALL Sydni with results. [phone]. 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 Barney office [phone]/ fax [phone] 08-31-11 He is having trouble with the home meter. He will be retrained over the phone. jm Patient Notified: Yes (Tanna Rothman) Result reviewed by: Sena Francisco Supervising provider name: Chirag Urrutia Specimen Performing Organization Address City/State/Zipcode Ph one Number NUCMED documented in this encounter Visit Diagnoses Not on filedocumented in this encounter
--- OUTSIDE RECORDS SUMMARY | 2019-08-08 14:05 | XMS REPORT | Encounter Summary ---
Author Author [facility] Organization [facility] Address Unknown Phone Unavailable Care Team Providers Care Steward/Stewardess Room Name Role Phone Sydni Russell PCP Encounter Details Care Team Description Date Type Department [facility] Provider, MD Lars 01/25/2013 [facility] - Hist [facility]IC [facility] C Visit Social History [...] Date/Time Associated Diag nosis PROTHROMBIN TIME/INR Routine 01/24/2013 2:49 PM CDT documented in this encounter Results * Prothrombin Time/INR (01/24/2013 2:49 PM CDT) INR 2.55 [facility] Comment: Lab Date: 20130124 Date Coumadin/warfarin started: 20100910 Location where INR performed: Lab Lab name and contact information: [facility] [address] siri r/ Dr. Proctor([facility]), [id number], [phone] Patient Status: Diagnosis 1: Atrial fibrillation [facility] Diagnosis 2: Target INR Range: 2.0-3.0 Next Lab due: 20130221 Pending Procedure: NA Patient Instructions(comments): cont 3.5mg daily ck in 4 wk---Sydni v/u sd Comments (General Comments) : CALL Sydni with results. [phone] patient daughter patient is a pharm/sd Dr. Barney office [phone]/ fax [phone] 08-31-11 He is having trouble with the home meter. He will be retrained over the phone. jm Patient Notified: Yes (Stacy Jaquez) Result reviewed by: Stacy Jaquez Supervising provider name: Chirag Urrutia Specimen Performing Organization Address City/State/Zipcode Ph one Number NUCMED documented in this encounter Visit Diagnoses Not on filedocumented in this encounter
--- OUTSIDE RECORDS SUMMARY | 2019-08-08 14:05 | XMS REPORT | Encounter Summary ---
Author Author [facility] Organization [facility] Address Unknown Phone Unavailable Care Team Providers Care Manager Distribution Center Name Role Phone Sydni Russell PCP Encounter Details Care Team Description Date Type Department Eriberto Carrasquillo MD [address] [place] [address] [phone] 11/22/2012 [facility] [...] Date/Time Associated Diag nosis PROTHROMBIN TIME/INR Routine 11/22/2012 10:22 AM CDT documented in this encounter Results * Prothrombin Time/INR (11/22/2012 10:22 AM CDT) INR NA [facility] Comment: Lab Date: [id number] Date Coumadin/warfarin started: 20100910 Location where INR performed: Lab Lab name and contact information: Iris waddell/ Dr. Proctor([facility]), [id number], [phone] Patient Status: Diagnosis 1: Atrial fibrillation [facility] Diagnosis 2: Target INR Range: 2.0-3.0 Next Lab due: 20121128 Pending Procedure: NA Patient Instructions(comments): spoke with dtr Sydni will have pt get INR next Tue---hdn Comments (General Comments) : CALL Sydni with results. [phone]. 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 Barney office [phone]/ fax [phone] 08-31-11 He is having trouble with the home meter. He will be retrained over the phone. jm Patient Notified: Yes (Tanna Rothman) Result reviewed by: Tanna Rothman Supervising provider name: Specimen Performing Organization Address City/State/Zipcode Ph one Number NUCMED documented in this encounter Visit Diagnoses Not on filedocumented in this encounter
--- OUTSIDE RECORDS SUMMARY | 2019-08-08 14:05 | XMS REPORT | Encounter Summary ---
Author Author [facility] Organization [facility] Address Unknown Phone Unavailable Care Team Providers Care Auto Customize Painter Name Role Phone Sydni Russell PCP Encounter Details Care Team Description Date Type Department Gregory Christine MD [address] [facility] [address] [place] [address] [phone] 02/12/2013 [facility] [...] Date/Time Associated Diag nosis PROTHROMBIN TIME/INR Routine 02/12/2013 11:47 AM CDT documented in this encounter Results * Prothrombin Time/INR (02/12/2013 11:47 AM CDT) INR 2.40 NU[facility]ED Comment: Lab Date: [id number] Date Coumadin/warfarin started: 20100910 Location where INR performed: Lab Lab name and contact information: [facility] [address] siri waddell/ Dr. Proctor([facility]), [id number], [phone] Patient Status: Diagnosis 1: Atrial fibrillation [facility] Diagnosis 2: Target INR Range: 2.0-3.0 Next Lab due: 20130312 Pending Procedure: NA Patient Instructions(comments): cont 3.5mg daily ck in 4wks/hn/// Sydni v/u-jcm Comments (General Comments) : CALL Sydni with results. [phone] patient daughter patient is a pharm/sd Dr. Barney office [phone]/ fax [phone] 08-31-11 He is having trouble with the home meter. He will be retrained over the phone. jm Patient Notified: Yes (Sena Francisco) Result reviewed by: Tanna Rothman Supervising provider name: Eriberto Carrasquillo Specimen Performing Organization Address City/State/Zipcode Ph one Number NUCMED documented in this encounter Visit Diagnoses Not on filedocumented in this encounter
--- OUTSIDE RECORDS SUMMARY | 2019-08-08 14:05 | XMS REPORT | Encounter Summary ---
Author Author [facility] Organization [facility] Address Unknown Phone Unavailable Care Team Providers Care Beach Attendant Name Role Phone Pravin Proctor PCP Encounter Details Care Team Description Date Type Department Dawit Ramon MD No Forwarding Address 02/02/2013 PracPart Note [facility] ogy [address] [place] [address] Social History Date Tobacco Use Types Packs/Day Years Used Never Assessed Sex Assigned at Date Recorded Not on file Industry Job Start Date Occupation Not on file Not on file Not on file Travel End Travel History Travel Start No recent travel history available. documented as of this encounter Progress Notes * Dawit Ramon MD - 02/02/2013 1:00 PM CDT . :01:00PM .T:call from patient's daughter, Dr. Sydni Russell From: Dawit Ramon ([facility]) Originated by: Dawit Ramon ([facility]) Sent: 013 at 01:00PM To: Jing Flores (CHRISTINA) Type: CHART Priority: 3 Subject: call from patient's daughter, Dr. Sydni Russell that's fine --- no contrast needed -- thanks sa Original Message: From: To: [facility] Subject: call from patient's daughter, Dr. Sydni Russell Priority: 3 Date: 02/02/2013 Nurse Note: PO Providers: : Physician Response: Patient Last Visit Next Visit Reason for Call: Dr. Sydni Russell, daughter of this 78 year old male notes her father will see you February 13 for dementia. She is wondering if you would be willi to pre-order an MRI head study "as Dr. Ramon likely always orders this with d [facility] patients". She notes her father lives in [place], [place] and he could get this while in town if you deem it necessary at the appointment/evaluation. She w ill be coming with him to the appointment. Let me know your thoughts - po documented in this encounter Plan of Treatment Not on filedocumented as of this encounter Visit Diagnoses Not on filedocumented in this encounter
--- OUTSIDE RECORDS SUMMARY | 2019-08-08 14:05 | XMS REPORT | Encounter Summary ---
Author Author [facility] Organization [facility] Address Unknown Phone Unavailable Care Team Providers Care Can Worker Name Role Phone Sydni Russell PCP Encounter Details Care Team Description Date Type Department [facility] ProviderLars MD 12/05/2012 [facility] - Hist [facility] C Visit Social History Date [...] Date/Time Associated Diag nosis PROTHROMBIN TIME/INR Routine 11/29/2012 8:29 AM CDT documented in this encounter Results * Prothrombin Time/INR (11/29/2012 8:29 AM CDT) INR 1.76 [facility] Comment: Lab Date: [id number] Date Coumadin/warfarin started: 20100910 Location where INR performed: Lab Lab name and contact information: [address] waddell/ Dr. Proctor([facility]), [phone], [phone] Patient Status: Diagnosis 1: Atrial fibrillation [facility] Diagnosis 2: Target INR Range: 2.0-3.0 Next Lab due: 20121205 Pending Procedure: NA Patient Instructions(comments): take 5mg today then resume 3.5mg daily ck in 1 wk/sd---spoke with dtr v/u, dtr wont be able to take him until 12/11/2012 Comments (General Comments) : CALL Sydni with results. [phone]. 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 Barney office [phone]/ fax [phone] 08-31-11 He is having trouble with the home meter. He will be retrained over the phone. jm Patient Notified: Yes (Tanna Rothman) Result reviewed by: Stacy Jaquez Supervising provider name: Rach Monteiro Specimen Performing Organization Address City/State/Zipcovt Ph one Number NUCMED documented in this encounter Visit Diagnoses Not on filedocumented in this encounter
--- OUTSIDE RECORDS SUMMARY | 2019-08-08 14:05 | XMS REPORT | Encounter Summary ---
Author Author [facility] Organization [facility] Address Unknown Phone Unavailable Care Team Providers Care Precipitator Operator Name Role Phone Pravin Proctor PCP Encounter Details Care Team Description Date Type Department [facility], Historical 02/12/2013 PracPart Note [facility] Social History Date Tobacco Use Types Packs/Day Years Used Never Assessed Sex Assigned at Date Recorded Not on file Industry Job Start Date Occupation Not on file Not on file Not on file Travel End Travel History Travel Start No recent travel history available. documented as of this encounter Progress Notes * [facility], Historical - 02/12/2013 11:38 AM CDT . :11:38AM .T:New Patient Packet - Appt 02/13/13 [facility] From: Mya Alarcon () Originated by: Mya Alarcon () Sent: 3 at 11:38AM To: Allison Oneal (JOE) Type: CHART Priority: 3 Attachment: INVALID LINK:Azeem Russell new pt pkt for [id number] appt [facility] - [id number]. tif|[id number]\\T:\\[id number]\\[id number]\\[id number]\\[id number]\\[id number]\\[id number] 1\\[id number]\\[id number]\\[id number].tif Subject: New Patient Packet - Appt 02/13/13 [facility] documented in this encounter Plan of Treatment Not on filedocumented as of this encounter Visit Diagnoses Not on filedocumented in this encounter"
--- OUTSIDE RECORDS SUMMARY | 2019-08-08 14:05 | XMS REPORT | Encounter Summary ---
Author Author [facility] Organization [facility] Address Unknown Phone Unavailable Care Team Providers Care Utility Spray Operator Name Role Phone Sydni Russell PCP Encounter Details Care Team Description Date Type Department [facility] Provider, MD Lars 12/06/2012 [facility] - Hist [facility] HISTORIC CLINI C Visit [...] Date/Time Associated Diag nosis PROTHROMBIN TIME/INR Routine 12/06/2012 8:48 AM CDT documented in this encounter Results * Prothrombin Time/INR (12/06/2012 8:48 AM CDT) INR 2.68 NU[facility]ED Comment: Lab Date: 20121206 Date Coumadin/warfarin started: 20100910 Location where INR performed: Lab Lab name and contact information: [facility]ris [address] siri r/ Dr. Proctor([facility]), [id number], [phone] Patient Status: Diagnosis 1: Atrial fibrillation [facility] Diagnosis 2: Target INR Range: 2.0-3.0 Next Lab due: 20121219 Pending Procedure: NA Patient Instructions(comments): cont 3.5mg daily ck in 2 wk///spoke to Sydni v/u---hn Comments (General Comments) : CALL Sydni with results. [phone]. 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 Barney office [phone]/ fax [phone] 08-31-11 He is having trouble with the home meter. He will be retrained over the phone. jm Patient Notified: Yes (Tanna Rothman) Result reviewed by: Tonja Nice Supervising provider name: Eriberto Carrasquillo Specimen Performing Organization Address City/State/Zipcode Ph one Number NUCMED documented in this encounter Visit Diagnoses Not on filedocumented in this encounter
--- OUTSIDE RECORDS SUMMARY | 2019-08-08 14:05 | XMS REPORT | Encounter Summary ---
Author Author [facility] Organization [facility] Address Unknown Phone Unavailable Care Team Providers Care Service Center Supervisor Name Role Phone Sydni Russell PCP Encounter Details Care Team Description Date Type Department [facility] Provider, MD Lars 08/04/2012 [facility] Result Social History Date Tobacco Use Types Packs/Day [...] Diag nosis CV US CAROTID DUPLEX Routine 08/04/2012 HISTORICAL documented in this encounter Results * CV US Carotid Duplex historical (08/04/2012) Specimen Narrative Performed At Procedure Category: ECHO NEXTGEN Procedure: Carotid Duplex Procedure Summary: 1. Mild atheroscle rotic plaque in the right carotid system with no evidence for a significant sten osis. 2. Moderate atherosclerotic plaque in the left carotid system with no evidence for a significant stenosis. 3. Both vertebral arteries are patent with antegrade flow. 4. Findings are similar to the caroti d duplex from 11/29/2011. Procedure Note Interface, Rad Conversion - 12/24/2014 12:58 PM CDT Procedure Category: ECHO Procedure: Carotid Duplex Procedure Summary: 1. Mild atherosclerotic plaque in the right carotid system with no evidence for a significant stenosis. 2. Moderate atherosclerotic plaque in t he left carotid system with no evidence for a significant stenosis. 3. Both vertebral arteries are patent w ith antegrade flow. 4. Findings are similar to the carotid duplex from 11/29/2011. Performing Organization Address City/State/Zipcode Ph one Number NEXTGEN documented in this encounter Visit Diagnoses Not on filedocumented in this encounter
--- OUTSIDE RECORDS SUMMARY | 2019-08-08 14:05 | XMS REPORT | Encounter Summary ---
Author Author [facility] Organization [facility] Address Unknown Phone Unavailable Care Team Providers Care Battery Charger Conveyor Line Name Role Phone Sydni Russell PCP Encounter Details Care Team Description Date Type Department [facility] ProviderLars MD 08/22/2012 [facility] - Hist [facility] HISTORIC CLINI C Visit Social [...] Date/Time Associated Diag nosis PROTHROMBIN TIME/INR Routine 08/22/2012 2:20 PM CDT documented in this encounter Results * Prothrombin Time/INR (08/22/2012 2:20 PM CDT) INR 2.40 NUCMED Comment: Lab Date: 20120822 Date Coumadin/warfarin started: 20100910 Location where INR performed: Lab Lab name and contact information: [facility] [address] siri waddell/ Dr. Proctor([facility]), [phone], [phone] Patient Status: Diagnosis 1: Atrial fibrillation [facility] Diagnosis 2: Target INR Range: 2.0-3.0 Next Lab due: 20120919 Pending Procedure: NA Patient Instructions(comments): cont 3.5mg daily and recheck in 4 wkws---spoke to patients daughter Sydni and she voiced understanding. cjj Comments (General Comments) : CALL Sydni with results. [phone]. 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 Barney office [phone]/ fax [phone] 08-31-11 He is having trouble with the home meter. He will be retrained over the phone. jm Patient Notified: Yes (Citlali Wolfe) Result reviewed by: Stacy Jaquez Supervising provider name: Eriberto Carrasquillo Specimen Performing Organization Address City/State/Zipcode Ph one Number NUCMED documented in this encounter Visit Diagnoses Not on filedocumented in this encounter
--- OUTSIDE RECORDS SUMMARY | 2019-08-08 14:05 | XMS REPORT | Encounter Summary ---
Author Author [facility] Organization [facility] Address Unknown Phone Unavailable Care Team Providers Care Product Manufacturing Professional Name Role Phone Fátima Montana PCP Encounter Details Care Team Description Date Type Department Refugio Ramon MD No Forwarding Address 02/13/2013 PracPart Note [facility] o[facility] [address] [place] [address] Social History Date Tobacco Use Types Packs/Day Years Used Never Assessed Sex Assigned at Date Recorded Not on file Industry Job Start Date Occupation Not on file Not on file Not on file Travel End Travel History Travel Start No recent travel history available. documented as of this encounter Progress Notes * Refugio Ramon MD - 02/13/2013 4:00 PM CDT . : 4:00pm .T: MRI HEAD WO CONTRAST .PV: SMA REPORT Patient: TENISHA RUSSELL Phone #: Med Rec#: [id number] Sex: M : 1935 Judy#: [id number] Location: Check-in#: [id number] Procedure Requested: [id number] MRI HEAD WO CONTRAST Reason For Exam: DEMENTIA Exam Ordered: 02/13/2013 1542 Exam Date/Time: 02/13/2013 1645 Check-in Date/Time: 02/13/2013 1559 Attendin REFUGIO RAMON Requestin REFUGIO RAMON Referrin IBIS, REFERRING Primary Care: [id number] FÁTIMA MONTANA MD MRI HEAD WO CONTRAST Date: Feb 13, 2013 04:45:00 PM Indication: Altered mental status. Technique: Multiplanar, multipulse sequence images of the head were obtained without contrast. Comparison: No comparison. Findings: There is no abnormal signal on diffusion weighted imaging to suggest acute ischemia. No acute intracranial hemorrhage or abnormal fluid collection is identified. Patchy and confluent T2 and FLAIR hyperintensity is noted in the periventricular and subcortical white matter. Similar signal alteration is seen in the brainstem at the level of the andi. There are multiple small remote lacunar infarcts in the bilateral centrum semiovale, bilateral basal ganglia, and right midbrain. The andrews/white matter interface is otherwise well-preserved with otherwise normal signal of the brain parenchyma. There is diffuse sulcal and ventricular prominence compatible with generalized volume loss. No mass effect or midline shift is seen. The suprasellar and quadrigeminal plate cisterns are patent. The major intracranial vascular flow-voids are present and patent. The visualized paranasal sinuses, orbits, and mastoid air cells appear normal. The pituitary hypothalamic axis and craniocervical junction are unremarkable. Impression|\\ 1. No acute intracranial abnormality. No restricted diffusion to suggest acute ischemia. 2. White matter changes consistent with moderate chronic small vessel ischemic disease. 3. Diffuse sulcal and ventricular prominence consistent with generalized volume loss. Parts of this report were generated with voice recognition software, there may be typographical and/or grammatical inaccuracies in bottoming room supervisor. Dictation Location: [facility] Signed (Authenticated, Released) Date-Time: 02/14/2013 0905 Television Producer- DIDIER CONWAY D.O., Staff Radiologist Dictated By- DIDIER CONWAY D.O., Staff Radiologist Staff Physician- DIDIER CONWAY D.O., Staff Radiologist Authenticated By- DIDIER CONWAY D.O., Staff Radiologist -- RELEASED BY [id number] Accession Number: [id number] Ordering Physician: REFUGIO RAMON # SIGNED BY Refugio Ramon MD ([facility]) 02/15/2013 08:36AM documented in this encounter Plan of Treatment Not on filedocumented as of this encounter Visit Diagnoses Not on filedocumented in this encounter"
--- OUTSIDE RECORDS SUMMARY | 2019-08-08 14:05 | XMS REPORT | Encounter Summary ---
Author Author [facility] Organization [facility] Address Unknown Phone Unavailable Care Team Providers Care Certified Personal Finance Counselor Name Role Phone Sydni Russell PCP Encounter Details Care Team Description Date Type Department [facility] ProviderLars MD 10/17/2012 [facility] Date/Time Associated Diag nosis PROTHROMBIN TIME/INR Routine 10/17/2012 12:07 PM CDT documented in this encounter Results * Prothrombin Time/INR (10/17/2012 12:07 PM CDT) INR 2.40 NUCMED Comment: Lab Date: [id number] Date Coumadin/warfarin started: 20100910 Location where INR performed: Lab Lab name and contact information: Iris [address] siri r/ Dr. Proctor([facility]), [id number], [phone] Patient Status: Diagnosis 1: Atrial fibrillation [facility] Diagnosis 2: Target INR Range: 2.0-3.0 Next Lab due: 20121114 Pending Procedure: NA Patient Instructions(comments): cont 3.5mg daily abnd recheck in 4 wks. cjj--- Sydni v/u sd Comments (General Comments) : CALL Sydni with results. [phone]. 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 He will be retrained over the phone. jm Patient Notified: Yes (Stacy Jaquez) Result reviewed by: Citlali Wolfe Supervising provider name: Eriberto Carrasquillo Specimen Performing Organization Address City/State/Zipcode Ph one Number NUCMED documented in this encounter Visit Diagnoses Not on filedocumented in this encounter
--- OUTSIDE RECORDS SUMMARY | 2019-08-08 14:05 | XMS REPORT | Encounter Summary ---
Author Author [facility] Organization [facility] Address Unknown Phone Unavailable Care Team Providers Care Marking Room Supervisor Name Role Phone YvonneSydni head PCP Encounter Details Care Team Description Date Type Department Dawit Ramon MD No Forwarding Address 02/13/2013 [facility] Social History Date Tobacco Use Types Packs/Day Years Used Never Assessed Sex Assigned at Date Recorded Not on file Industry Job Start Date Occupation Not on file Not on file Not on file Travel End Travel History Travel Start No recent travel history available. documented as of this encounter Last Filed Vital Signs Reading Time Taken Comments Vital Sign 147/73 02/13/2013 1:32 PM CDT Blood Pressure 50 02/13/2013 1:32 PM CDT Pulse 36.6 C (97.9 F) 02/13/2013 1:32 PM CDT Temperature - - Respiratory Rate - - Oxygen Saturation - - Inhaled Oxygen Concentration 73.9 kg (163 lb) 02/13/2013 1:32 PM CDT Weight 172.7 cm (5' 8") 02/13/2013 1:32 PM CDT Height 24.78 02/13/2013 1:32 PM CDT Body Mass Index documented in this encounter Progress Notes * Dawit Ramon MD - 02/13/2013 3:18 PM CDT . : 03:18pm .T: New Patient .PV:[facility] [address] [place] [address] [address] [facility] [address] [place] [address] [place] [address] [place] [address] [place] [address] Inga Ramon M.D. Dawit Ramon M.D. Patricia Slaughter M.D. Ольга Fox M.D. Neema Nguyễn D.O. Meet Zamorano M.D. Kalee Cuellar M.D. Jade Chavez M.D. Wander Cerna D.O. Wisam High M.D. Sherrie Leger, MSN,RN,ANP, [facility] Pravin Herrmann M.D., Ph.D. Fernando Paige M.D. Edson Flores M.D. 02/13/13 Pravin Proctor MD [facility] [place] [address] ( ) - RE: Azeem Russell : 31 Dear Pravin: I had the pleasure of seeing your patient Azeem Russell, date of 31 , today in neurological consult. I have reviewed the Past, Social and Family his tories on this patient and they have been documented in the electronic medical r ecord. I have done a complete review of systems also in the electronic medical r ecord. The following medication was reported to me by the patient and may assist you: P1 Current Medications: Rx: ARICEPT 5 mg 1 tab daily Rx: ARICEPT 10mg 1 tab daily Rx: COUMADIN 3.5MG 1TAB DAILY The patient's vitals signs taken today in my office are as follows: Bp: 147/73, Right Arm, Pulse: 50 Temperature: 97.9 F, Height: 5'8", Weight: 163 lbs Azeem Russell was seen in neurologic consultation in the presence of his a s well as his daughter ( Georgette Manuelell) on 02/13/13 at our [facility] Office for ev aluation of cognitive dysfunction over the past two years ago which has been of gradual onset and progression. 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 No history of prior stro ke. About two years ago, he had the onset and gradual progression of difficulty with remembering names, numbers and objects. He had difficulty operating the presley r egister and computer. 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 He has been driv ing okay. He sleeps okay. He does tend to shuffle a little bit. He does funct ion around the house fairly well. He has experienced head and neck injury when a cow tipped him over about two years ago probably near the onset of these sympt oms but they have been gradually progressive. TSH and Vitamin D levels were nor mal. Most recent carotid duplex scan was unremarkable following hisendarterecto my in 2010. Medications are Coumadin, Celexa, Vitamin D, fish oil, Azopt, and Xalatan and me latonin. No drug allergies. Past medical history is as indicated. No diabetes. No seizures or migraines. Family history is unknown as he is adopted. Social history: He is and lives with his . He is a pharmacist. He has one alcoholic beverage per day. No tobacco. No illicit drugs. On examination, MMSE score was 25/30. He missed the date by 2 but know month, y ear and day of the week. He knew location. He remembered 0 of 3 objects after 3 minutes. He missed a letter spelling world backwards. He was able to n janey, repeat and follow directions. Pupils were equal, round and reacted to ligh t and accommodation. Extraocular movements were full without nystagmus. No fac ial asymmetry. Facial sensation was normal and symmetric. Visual paige were no rmal. Funduscopic examination was benign with clear disc margins and no papille blanche. Hearing was intact. Motor strength is 5/5 throughout with normal tone an d no atrophy. Reflexes are 2/2 and symmetric with downgoing toes bilaterally. S ensation was grossly intact and symmetrical from side to side. Gait including t andem was normal. Romberg was absent. No head or neck bruits. Neck was supple . Heart rate and rhythm was irregular. No murmur. No pronator drift. Rapid al ternating and successive movements were normal. Vhwjtt-bw-txpk was intact witho ut dystaxia. No resting or intention tremor. 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 By description he h as restless legs syndrome. We talked about potential medication as well as non- medication assistance. He is already scheduled for an MRI of the brain. I have arranged for a B12 and folate level to be done. I have started Aricept 5mg ernie ly for four weeks, then 10mg daily. Since he does not eat breakfast, we will hav e him take it with dinner. If he has side effects at night, he might want to sw itch to morning. At some point, we may add Namenda. At this point, I would lik e to make one change at a time. The next consideration would be to add a dopami ne agent at night to try to control the restless legs which only at night. I di scussed him my impressions fully with him and his family. Sincerely, :isidoro CC: Reid Tan M.D. [facility] [address] [place] [address] <<MP>> # SIGNED BY Dawit Ramon MD ([facility]) 02/13/2013 03:40PM documented in this encounter Plan of Treatment Not on filedocumented as of this encounter Visit Diagnoses Not on filedocumented in this encounter
--- OUTSIDE RECORDS SUMMARY | 2019-08-08 14:05 | XMS REPORT | Encounter Summary ---
Author Author [facility] Organization [facility] Address Unknown Phone Unavailable Care Team Providers Care Piping Supervisor Name Role Phone Sydni Russell PCP Encounter Details Care Team Description Date Type Department Altaf Vasques MD [address] [facility] [address] [place], [place] [id number] 10/03/2012 [facility] - Hist [facility] HISTORIC CLINI C Visit Social [...] Date/Time Associated Diag nosis PROTHROMBIN TIME/INR Routine 10/03/2012 3:08 PM CDT documented in this encounter Results * Prothrombin Time/INR (10/03/2012 3:08 PM CDT) INR 2.32 NUCMED Comment: Lab Date: [id number] Date Coumadin/warfarin started: 20100910 Location where INR performed: Lab Lab name and contact information: Iris Welch wks siri waddell/ Dr. Proctor([facility]), [phone], [phone] Patient Status: Diagnosis 1: Atrial fibrillation [facility] Diagnosis 2: Target INR Range: 2.0-3.0 Next Lab due: 20121031 Pending Procedure: NA Patient Instructions(comments): cont 3.5mg daily and recheck in 4 wks. latha----Sydni v/u adina Comments (General Comments) : CALL Sydni with results. [phone]. 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 Barney office [phone]/ fax [phone] 08-31-11 He is having trouble with the home meter. He will be retrained over the phone. jm Patient Notified: Yes (Stacy Jaquez) Result reviewed by: Citlali Wolfe Supervising provider name: Eriberto Carrasquillo Specimen Performing Organization Address City/State/Zipcode Ph one Number NUCMED documented in this encounter Visit Diagnoses Not on filedocumented in this encounter
--- OUTSIDE RECORDS SUMMARY | 2019-08-08 14:05 | XMS REPORT | Encounter Summary ---
Author Author [facility] Organization [facility] Address Unknown Phone Unavailable Care Team Providers Care Fishing Tool Supervisor Name Role Phone Sydni Russell PCP Encounter Details Care Team Description Date Type Department Reid Stock MD [address] [place] [address] [phone] 08/09/2012 [facility] C [...] Progress Notes * Reid Stock MD - 08/09/2012 9:47 AM [facility] [place] Office [address] [place] [address] 08/10/2012 Pravin Proctor MD [facility] [place] [address] Re: TENISHA RUSSELL : 1935 Chart#: [id number] Dear Dr. Proctor: This is a followup note regarding STEVEN ALEX. He has completed his cardiac testing and I am writing to share the results with you. He had the following tests: Carotid duplex: 1. Mild atherosclerotic plaque in the right carotid system with no evidence for a significant stenosis. 2. Moderate atherosclerotic plaque in the left carotid system with no evidence for a significant stenosis. 3. Both vertebral arteries are patent with antegrade flow. 4. Findings are similar to the carotid duplex from 11/29/2011. Based on the above, I am recommending the following: - continued compliance with risk factor modification These test results along with my recommendations have been communicated to KENDRA RUSSELL. I hope this information is useful to you. If you should have any qu estions or concerns, please do not hesitate to contact me. Sincerely, Reid Welch M.D. cc: Pravin Proctor MD [facility] [place] [address] SUPERVISOR documented in this encounter Plan of Treatment Not on filedocumented as of this encounter Visit Diagnoses Not on filedocumented in this encounter
--- OUTSIDE RECORDS SUMMARY | 2019-08-08 14:05 | XMS REPORT | Encounter Summary ---
Author Author [facility] Organization [facility] Address Unknown Phone Unavailable Care Team Providers Care Station Helper Name Role Phone Pravin Proctor PCP Encounter Details Care Team Description Date Type Department [facility], Historical 02/12/2013 [facility] Note [facility] Social History Date Tobacco Use Types Packs/Day Years Used Never Assessed Sex Assigned at Date Recorded Not on file Industry Job Start Date Occupation Not on file Not on file Not on file Travel End Travel History Travel Start No recent travel history available. documented as of this encounter Progress Notes * [facility], Historical - 02/12/2013 11:40 AM CDT . :11:40AM .T:New Patient Packet - Appt 02/13/13 [facility] From: Mya Alarocn () Originated by: Mya Alarcon () Sent: 3 at 11:40AM To: Allison Oneal (JOE) Type: CHART Priority: 3 Attachment: INVALID LINK:Azeem Russell 1 new pt pkt for [id number] appt [facility] - [id number].t if|[id number]\\T:\\ppart\\Files\\[id number]\\[id number]\\[id number]\\ABVU102\\[id number]\\[id number]\\[id number] \\[id number]\\[id number]\\RVBX810\\[id number]\\JZXB008\\ZVAB606\\FMPV441\\HILI523\\HIQS322\\[id number] \\[id number]\\HFSN244\\[id number]\\[id number].tif Subject: New Patient Packet - Appt 02/13/13 [facility] documented in this encounter Plan of Treatment Not on filedocumented as of this encounter Visit Diagnoses Not on filedocumented in this encounter"
--- OUTSIDE RECORDS SUMMARY | 2019-08-08 14:05 | XMS REPORT | Encounter Summary ---
Author Author [facility] Organization [facility] Address Unknown Phone Unavailable Care Team Providers Care Mobile Engineer Name Role Phone YvonneSydni PCP Encounter Details Care Team Description Date Type Department [facility] Provider, MD Lars 01/24/2013 [facility] - Hist [facility] HISTORIC CLINI C Visit Social History [...] Date/Time Associated Diag nosis PROTHROMBIN TIME/INR Routine 01/22/2013 2:56 PM CDT documented in this encounter Results * Prothrombin Time/INR (01/22/2013 2:56 PM CDT) INR 2.40 NUCMED Comment: Lab Date: 20130108 Date Coumadin/warfarin started: 20100910 Location where INR performed: Lab Lab name and contact information: Iris [address] siri r/ Dr. Proctor([facility]), [phone], [phone] Patient Status: Diagnosis 1: Atrial fibrillation [facility] Diagnosis 2: Target INR Range: 2.0-3.0 Next Lab due: 20130123 Pending Procedure: NA Patient Instructions(comments): [facility] 01-22-13-- pt needs to check INR and remind pt to call Iris with results same day/// Sydni states pt is going to to have checked tomorrow-jcm Comments (General Comments) : CALL Sydni with results. 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 Barney office [phone]/ fax [phone] 08-31-11 He is having trouble with the home meter. He will be retrained over the phone. jm Patient Notified: Yes (Sena Francisco) Result reviewed by: Stacy Jaquez Supervising provider name: Specimen Performing Organization Address City/State/Zipcode Ph one Number NUCMED documented in this encounter Visit Diagnoses Not on filedocumented in this encounter
--- OUTSIDE RECORDS SUMMARY | 2019-08-08 14:05 | XMS REPORT | Encounter Summary ---
Author Author Organization Address Unknown Phone Unavailable Care Team Providers Care Campaign Consultant Name Role Phone Pravin Proctor PCP Encounter Details Care Team Description Date Type Department [facility], Historical 02/02/2013 Pr[facility]Part Note [facility] Social History Date Tobacco Use Types Packs/Day Years Used Never Assessed Sex Assigned at Date Recorded Not on file Industry Job Start Date Occupation Not on file Not on file Not on file Travel End Travel History Travel Start No recent travel history available. documented as of this encounter Progress Notes * [facility], Historical - 02/02/2013 2:04 PM CDT . :02:04PM .T:call from patient's daughter, Dr. Sydni Russell relayed [facility] response to Dr. Russell - christina From: Ashley Sanchez (MAHENDRA) Originated by: Ashley Sanchez (MAHENDRA) Sent: 02/02 at 01:53PM To: Jing Flores (CHRISTINA) Type: CHART Priority: 3 Subject: call from patient's daughter, Dr. Sydni Russell [place] PATIENT IS SCHEDULED FOR 02/13/13 [facility]TH LOCATION @ 3:30 Original Message: From: PO To: Subject: call from patient's daughter, Dr. Sydni Russell Priority: 3 Date: 02/02/2013 Ashley: Will you please set up this patient for MRI head without contrast on at [facility] around 2:30pm or after if possible? Then let me know arlene serrano the details and I will call his daughter, Dr. Sydni Russell. Thanks..Albertina Original Message: From: SMA To: PO Subject: call from patient's daughter, Dr. Sydni Russell Priority: 3 Date: 02/02/2013 that's fine --- no contrast needed -- thanks Original Message: From: PO To: SMA Subject: call from patient's daughter, Dr. Sydni [...] Dr. Ramon likely always orders this with [facility] patients". She notes her father lives in [place], [place] and he could get this while in town if you deem it necessary at the appointment/evaluation. She w ill be coming with him to the appointment. Let me know your thoughts - po documented in this encounter Plan of Treatment Not on filedocumented as of this encounter Visit Diagnoses Not on filedocumented in this encounter
--- OUTSIDE RECORDS SUMMARY | 2019-08-08 14:05 | XMS REPORT | Encounter Summary ---
Author Author [facility] Organization [facility] Address Unknown Phone Unavailable Care Team Providers Care Bead Cutter Name Role Phone YvonneSydni head PCP Encounter Details Care Team Description Date Type Department [facility] ProviderLars MD 08/10/2012 [facility] - Hist [facility] HISTORIC CLINI C Visit Social History [...] Date/Time Associated Diag nosis PROTHROMBIN TIME/INR Routine 08/09/2012 8:41 AM PRINCIPAL CLOUD ARCHITECT documented in this encounter Results * Prothrombin Time/INR (08/09/2012 8:41 AM PRINCIPAL CLOUD ARCHITECT) INR 2.40 NUCMED Comment: Lab Date: [id number] Date Coumadin/warfarin started: 20100910 Location where INR performed: Lab Lab name and contact information: Iris [address]addell/ Dr. Proctor([facility]), [phone], [phone] Patient Status: Diagnosis 1: Atrial fibrillation [facility] Diagnosis 2: Target INR Range: 2.0-3.0 Next Lab due: 20120905 Pending Procedure: NA Patient Instructions(comments): 08-09-2012 cont 3.5mg daily and recheck in 4 wkws. cjj/// spoke to celina mcgee/ammon Comments (General Comments) : CALL Sydni with results. [phone]. 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 Barney office [phone]/ fax [phone] 08-31-11 He is having trouble with the home meter. He will be retrained over the phone. jm Patient Notified: Yes (Sena Francisco) Result reviewed by: Citlali Wolfe Supervising provider name: Jed Christiansen Specimen Performing Organization Address City/State/Zipcode Ph one Number NUCMED documented in this encounter Visit Diagnoses Not on filedocumented in this encounter
--- OUTSIDE RECORDS SUMMARY | 2019-08-08 14:05 | XMS REPORT | Encounter Summary ---
Author Author [facility] Organization [facility] Address Unknown Phone Unavailable Care Team Providers Care Construction Controller Name Role Phone PCP Unavailable Encounter Details Care Team Description Date Type Department Refugio Ramon MD No Forwarding Address Memory loss 02/13/[address] [facility] [address] [place] [address] Social History Date Tobacco Use Types Packs/Day [...] tablet (75MG) by oral route every day 01/19/2011 01/08/2015 COUMADIN 1 mg tablet take 1 -2 60 6 tablet daily or as directed 09/04/2010 01/08/2015 COUMADIN 5 mg tablet take 1 tablet 30 0 by mouth daily or as directed 08/04/2010 01/08/2015 dabigatran etexilate take 1 60 11 (PRADAXA) 150 mg capsu capsule (150MG) by oral route 2 times every day 08/04/2010 01/08/2015 lisinopril-hydrochlorothi take 1 tablet 90 3 azide by oral route (PRINZIDE,ZESTORETIC) every day 10-12.5 mg per tablet 12/15/2010 01/08/2015 nebivolol (BYSTOLIC) 5 MG 1/2 [...] Procedure Name Priority Date/Time Associated Diag nosis MRI HEAD WO CONTRAST Routine 02/13/2013 4:00 PM CDT documented in this encounter Results * MRI Head wo contrast (02/13/2013 4:00 PM CDT) Specimen Narrative Performed At [facility] Patient: TENISHA RUSSELL Phone #: Med Rec#: [id number] Sex: M : 1935 Judy#: [id number] Location: Check-in#: [id number] Procedure Requested: [id number] MRI HEAD WO CONTRAST Reason For Exam: DEMENTIA Exam Ordered: 02/13/2013 154 2 Exam Date/Time: 02/13/2013 1645 Check-in Date/Time: 02/13/2013 1559 Attendin REFUGIO RAMON Requestin REFUGIO RAMON Referrin NO, REFERRING DR Primary Care: [id number] FÁTIMA MONTANA MD MRI HEAD WO CONTRAST Date: Feb 13, 2013 04:45:00 PM Indication: Altered mental status. Technique: Multiplanar, multipulse sequ ence images of the head were obtained without contrast. Comparison: No comparison. Findings: There is no abnormal signal on diffusion weighted imaging to suggest acute ischemia. No acute intrac ranial hemorrhage or abnormal fluid collection is identified. Patchy and confluent T2 and FLAIR hyper intensity is noted in the periventricular and subcortical white m atter. Similar signal alteration is seen in the brainstem at the level o f the andi. There are multiple small remote lacunar infarcts in the bi lateral centrum semiovale, bilateral basal ganglia, and right midb rain. The andrews/white matter interface is otherwise well-preserved w ith otherwise normal signal of the brain parenchyma. There is diffuse sulcal and ventricular prominence compatible with generalized volume loss. No mass effect or midline shift is seen. The suprasellar and quadrigeminal plate cis terns are patent. The major intracranial vascular flow-voids are pr esent and patent. The visualized paranasal sinuses, orbit s, and mastoid air cells appear normal. The pituitary hypothalamic ax is and craniocervical junction are unremarkable. Impression: 1. No acute intracranial abnormality. N o restricted diffusion to suggest acute ischemia. 2. White matter changes consistent with moderate chronic small vessel ischemic disease. 3. Diffuse sulcal and ventricular promi nence consistent with generalized volume loss. Parts of this report were generated wit [employer] voice recognition software, there may be typographical and/or gramm atical inaccuracies in digital printer operator. Dictation Location: [facility] Signed (Authenticated, Released) Date-T eusebio: 02/14/2013 0905 Vehicle Service Agent- DIDIER Santiago, Staff Radiologist Dictated By- Victorino GROVE D.O. Radiologist Staff Physician- DIDIER Taveras, Staff Radiologist Authenticated By- DIDIER Santiago, Staff Radiologist Procedure Note Interface, Rad Conversion - 08/03/2013 12:19 PM CLINICAL OB REPORT Patient: TENISHA RUSSELL Phone #: leaselock Rec#: [id number] Sex: M : 1935 Judy#: [id number] Location: Check-in#: [id number] Procedure Requested: [id number] MRI HEAD WO CONTRAST Reason For Exam: DEMENTIA Exam Ordered: 02/13/2013 1542 Exam Date/Time: 02/13/2013 1645 Check-in Date/Time: 02/13/2013 1559 Attendin REFUGIO RAMON Requestin REFUGIO RAMON Referrin NO, REFERRING Primary Care: [id number] FÁTIMA MONTANA MD MRI HEAD WO CONTRAST [...] hypothalamic axis and craniocervical junction are unremarkable. Impression: 1. No acute intracranial abnormality. No restricted diffusion to suggest acute ischemia. 2. White matter changes consistent with moderate chronic small vessel ischemic disease. 3. Diffuse sulcal and ventricular promin ence consistent with generalized volume loss. Parts of this report were generated with voice recognition software, there may be typographical and/or grammatical inaccuracies in digital printer operator. Dictation Location: [facility] Signed (Authenticated, Released) Date-Time: 02/14/2013 0905 Vehicle Service Agent- DIDIER CONWAY D.O., Staff Radiologist Dictated By- DIDIER CONWAY D.O., Staff Radiologist Staff Physician- DIDIER CONWAY D.O., Staff Radiologist Authenticated By- DIDIER CONWAY D.O., Staff Radiologist Performing Organization Address City/State/[facility] Ph one Number [facility] documented in this encounter Visit Diagnoses Diagnosis Memory loss documented in this encounter
--- OUTSIDE RECORDS SUMMARY | 2019-08-08 14:05 | XMS REPORT | Encounter Summary ---
Author Author [facility] Organization [facility] Address Unknown Phone Unavailable Care Team Providers Care Mercury Cracking Tester Name Role Phone Arely Russell PCP Encounter Details Care Team Description Date Type Department Eriberto Carrasquillo MD [address] [place] [address] [phone] 12/05/2012 [facility] [...] Date/Time Associated Diag nosis PROTHROMBIN TIME/INR Routine 12/05/2012 2:29 PM CDT documented in this encounter Results * Prothrombin Time/INR (12/05/2012 2:29 PM CDT) INR NA NUCMED Comment: Lab Date: 20121205 Date Coumadin/warfarin started: 20100910 Location where INR performed: Lab Lab name and contact information: Iris waddell/ Dr. Proctor([facility]), [id number], [phone] Patient Status: Diagnosis 1: Atrial fibrillation [facility] Diagnosis 2: Target INR Range: 2.0-3.0 Next Lab due: 20121206 Pending Procedure: NA Patient Instructions(comments): spoke to re: they want to keep using home meter at all, she's unsure. spoke to arely, said that she and her sister would try and help them use the meter at least a couple times a month. Comments (General Comments) : CALL Arely with results. [phone]. 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 Barney office [phone]/ fax [phone] 08-31-11 He is having trouble with the home meter. He will be retrained over the phone. jm Result reviewed by: Sena Francisco Supervising provider name: Specimen Performing Organization Address City/State/Zipcode Ph one Number NUCMED documented in this encounter Visit Diagnoses Not on filedocumented in this encounter
--- OUTSIDE RECORDS SUMMARY | 2019-08-08 14:06 | XMS REPORT | Encounter Summary ---
Author Author [facility] Organization [facility] Address Unknown Phone Unavailable Care Team Providers Care Livestock Broker Name Role Phone YvonneSydni head PCP Encounter Details Care Team Description Date Type Department [facility] ProviderLars MD 06/20/2012 [facility] [...] Date/Time Associated Diag nosis PROTHROMBIN TIME/INR Routine 06/14/2012 8:35 AM TRAIN ATTENDANT documented in this encounter Results * Prothrombin Time/INR (06/14/2012 8:35 AM TRAIN ATTENDANT) INR 2.64 NUCMED Comment: Lab Date: [id number] Date Coumadin/warfarin started: 20100910 Location where INR performed: Lab Lab name and contact information: Iris 4 wks siri r/ Dr. Proctor([facility]), [id number], [phone] Patient Status: Diagnosis 1: Atrial fibrillation [facility] Diagnosis 2: Target INR Range: 2.0-3.0 Next Lab due: 20120711 Pending Procedure: NA Patient Instructions(comments): cont. 3.5mg daily. ck. in 4wks/// spoke to celina mcgee/u-jcsven Comments (General Comments) : CALL Sydni with results. [phone]. 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 Barney office [phone]/ fax [phone] 08-31-11 He is having trouble with the home meter. He will be retrained over the phone. jm Patient Notified: Yes (Sena Francisco) Result reviewed by: Stacy Jaquez Supervising provider name: Blane Dorantes Specimen Performing Organization Address City/State/Zipcode Ph one Number NUCMED documented in this encounter Visit Diagnoses Not on filedocumented in this encounter
--- OUTSIDE RECORDS SUMMARY | 2019-08-08 14:06 | XMS REPORT | Encounter Summary ---
Author Author [facility] Organization [facility] Address Unknown Phone Unavailable Care Team Providers Care Ophthalmic Medical Technologist Name Role Phone YvonneSydni head PCP Encounter Details Care Team Description Date Type Department [facility] Provider, MD Lars 12/07/2011 [facility] - Hist [facility]ORIC CLINI C Visit Social History [...] Date/Time Associated Diag nosis PROTHROMBIN TIME/INR Routine 12/07/2011 2:49 PM CDT documented in this encounter Results * Prothrombin Time/INR (12/07/2011 2:49 PM CDT) INR NA NUCMED Comment: Lab Date: 20111207 Date Coumadin/warfarin started: 20100910 Location where INR performed: Lab Lab name and contact information: Iris Mike Meter/ Dr. Proctor([facility]), [id number], [id number] Patient Status: Diagnosis 1: Atrial fibrillation [facility] Diagnosis 2: Target INR Range: 2.0-3.0 Next Lab due: 20111209 Pending Procedure: NA Patient Instructions(comments): spoke to patients daughter and she will make sure INR is done on or tuesday [facility] Comments (General Comments) : CALL Sydni with results. [phone]. 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 Barney office [phone]/ fax [phone] 08-31-11 He is having trouble with the home meter. He will be retrained over the phone. jose Result reviewed by: Supervising provider name: Specimen Performing Organization Address City/State/Zipcode Ph one Number NUCMED documented in this encounter Visit Diagnoses Not on filedocumented in this encounter
--- OUTSIDE RECORDS SUMMARY | 2019-08-08 14:06 | XMS REPORT | Encounter Summary ---
Author Author [facility] Organization [facility] Address Unknown Phone Unavailable Care Team Providers Care Soft Sugar Operator Head Name Role Phone Sydni Russell PCP Encounter Details Care Team Description Date Type Department Eriberto Carrasquillo MD [address] [place] [address] [phone] 02/22/2012 [facility] [...] Date/Time Associated Diag nosis PROTHROMBIN TIME/INR Routine 02/22/2012 12:38 PM CDT documented in this encounter Results * Prothrombin Time/INR (02/22/2012 12:38 PM CDT) INR 2.15 NUCMED Comment: Lab Date: 20120222 Date Coumadin/warfarin started: 20100910 Location where INR performed: Lab Lab name and contact information: Iris 4 wkmariaelena waddell/ Dr. Proctor([facility]), [id number], [phone] Patient Status: Diagnosis 1: Atrial fibrillation [facility] Diagnosis 2: Target INR Range: 2.0-3.0 Next Lab due: 20120321 Pending Procedure: NA Patient Instructions(comments): cont 3.5mg daily, blayne 4wks-jcm---Sydni v/u adina Comments (General Comments) : CALL Sydni with results. [phone]. 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 Barney office [phone]/ fax [phone] 08-31-11 He is having trouble with the home meter. He will be retrained over the phone. Patient Notified: Yes (Stacy Jaquez) Result reviewed by: Sena Francisco Supervising provider name: Eriberto Carrasquillo Specimen Performing Organization Address City/State/Zipcode Ph one Number NUCMED documented in this encounter Visit Diagnoses Not on filedocumented in this encounter
--- OUTSIDE RECORDS SUMMARY | 2019-08-08 14:06 | XMS REPORT | Encounter Summary ---
Author Author [facility] Organization [facility] Address Unknown Phone Unavailable Care Team Providers Care Fire Safety Manager Name Role Phone BrooklynSydni head PCP Encounter Details Care Team Description Date Type Department Veda Puga MD [address] [facility] [address] [place] [address] [phone] 11/19/2011 [facility]IC CL[facility] C Visit Social History [...]
--- OUTSIDE RECORDS SUMMARY | 2019-08-08 14:06 | XMS REPORT | Encounter Summary ---
Author Author [facility] Organization [facility] Address Unknown Phone Unavailable Care Team Providers Care Weatherization Coordinator Name Role Phone [place] PCP Encounter Details Care Team Description Date Type Department Reid Stock MD [address] [facility] [address] [place] [address] [phone] 12/06/2011 [facility] HISTORIC CLINI C Visit Social History [...]
--- OUTSIDE RECORDS SUMMARY | 2019-08-08 14:06 | XMS REPORT | Encounter Summary ---
Author Author [facility] Organization [facility] Address Unknown Phone Unavailable Care Team Providers Care Hoop Driving Machine Operator Helper Name Role Phone Sydni Russell PCP Encounter Details Care Team Description Date Type Department [facility] Provider, MD Lars 01/14/2012 [facility] - Hist [facility] HISTORIC CLINI C Visit Social [...] Date/Time Associated Diag nosis PROTHROMBIN TIME/INR Routine 12/31/2011 9:06 AM CDT documented in this encounter Results * Prothrombin Time/INR (12/31/2011 9:06 AM CDT) INR 2.20 NUCMED Comment: Lab Date: 20111230 Date Coumadin/warfarin started: 20100910 Location where INR performed: Lab Lab name and contact information: Iris Mike Meter/ Dr. Proctor([facility]), [id number], [phone] Patient Status: Diagnosis 1: Atrial fibrillation [facility] Diagnosis 2: Target INR Range: 2.0-3.0 Next Lab due: 20120113 Pending Procedure: NA Patient Instructions(comments): Cont 3.5mg daily. Recheck 2 weeks.--- v/u sd (Sydni called back, gave results. Voiced understnading. KD) Comments (General Comments) : CALL Sydni with results. [phone]. 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 Barney office [phone]/ fax [phone] 08-31-11 He is having trouble with the home meter. He will be retrained over the phone. jm Patient Notified: Yes (Stacy Jaquez) Result reviewed by: Tonja Nice Supervising provider name: Eriberto Carrasquillo Specimen Performing Organization Address City/State/Zipcode Ph one Number NUCMED documented in this encounter Visit Diagnoses Not on filedocumented in this encounter
--- OUTSIDE RECORDS SUMMARY | 2019-08-08 14:06 | XMS REPORT | Encounter Summary ---
Author Author [facility] Organization [facility] Address Unknown Phone Unavailable Care Team Providers Care Foreign Diplomat Name Role Phone Sydni Russell PCP Encounter Details Care Team Description Date Type Department Veda Puga MD [address] [facility] [address] [place], [place] [id number] 05/04/2012 [facility] HISTORIC CLINI C Visit Social History Date [...] Date/Time Associated Diag nosis PROTHROMBIN TIME/INR Routine 05/05/2012 8:59 AM SACK FILLER documented in this encounter Results * Prothrombin Time/INR (05/05/2012 8:59 AM SACK FILLER) INR 2.40 NUCMED Comment: Lab Date: 20120504 Date Coumadin/warfarin started: 20100910 Location where INR performed: Lab Lab name and contact information: Iris 4 wks siri waddell/ Dr. Proctor([facility]), [id number], [phone] Patient Status: Diagnosis 1: Atrial fibrillation [facility] Diagnosis 2: Target INR Range: 2.0-3.0 Next Lab due: 20120601 Pending Procedure: NA Patient Instructions(comments): cont. 3.5mg daily. ck. in 4wks./lm--- Sydni v/u sd Comments (General Comments) : CALL Sydni with results. [phone]. 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 Barney office [phone]/ fax [phone] 08-31-11 He is having trouble with the home meter. He will be retrained over the phone. jm Patient Notified: Yes (Stacy Jaquez) Result reviewed by: Remedios Bianchi Supervising provider name: Eriberto Carrasquillo Specimen Performing Organization Address City/State/Zipcode Ph one Number NUCMED documented in this encounter Visit Diagnoses Not on filedocumented in this encounter
--- OUTSIDE RECORDS SUMMARY | 2019-08-08 14:06 | XMS REPORT | Encounter Summary ---
Author Author [facility] Organization [facility] Address Unknown Phone Unavailable Care Team Providers Care Zinc Plater Name Role Phone [place]myraSydni head PCP Encounter Details Care Team Description Date Type Department Reid Stock MD [address] [facility] [address] [place] [address] [phone] 07/24/2012 [facility] [...]
--- OUTSIDE RECORDS SUMMARY | 2019-08-08 14:06 | XMS REPORT | Encounter Summary ---
Author Author [facility] Organization [facility] Address Unknown Phone Unavailable Care Team Providers Care Parliamentary Counsel Name Role Phone PCP Unavailable Encounter Details Care Team Description Date Type Department Reid Stock MD [address] [facility] [address] [place] [address] [place] [address] [phone] Occlusion and stenosis of carotid artery without mention of cerebral infarction 08/04/2012 [place] [address] Social History Date Tobacco Use Types Packs/Day [...] as of this encounter Visit Diagnoses Diagnosis Occlusion and stenosis of carotid arter y without mention of cerebral infarction documented in this encounter
--- OUTSIDE RECORDS SUMMARY | 2019-08-08 14:06 | XMS REPORT | Encounter Summary ---
Author Author [facility] Organization [facility] Address Unknown Phone Unavailable Care Team Providers Care Java Programming Professor Name Role Phone Sydni Russell PCP Encounter Details Care Team Description Date Type Department Reid Stock MD [address] [facility] [address] [place], [place] [id number] 01/14/2012 [facility] HISTORIC CLINI C Visit Social History Date [...] Date/Time Associated Diag nosis PROTHROMBIN TIME/INR Routine 01/14/2012 2:39 PM CDT documented in this encounter Results * Prothrombin Time/INR (01/14/2012 2:39 PM CDT) INR NA NUCMED Comment: Lab Date: 20120114 Date Coumadin/warfarin started: 20100910 Location where INR performed: Lab Lab name and contact information: Iris Welch wkmariaelena waddell/ Dr. Proctor([facility]), [id number], [phone] Patient Status: Diagnosis 1: Atrial fibrillation [facility] Diagnosis 2: Target INR Range: 2.0-3.0 Next Lab due: 20120127 Pending Procedure: NA Patient Instructions(comments): We rec'd a letter stating he would be returning his meter. I spoke to his dtr Sydni and they want to keep the meter, but didn't want to ck every 2 wks, so they would go to the PCP for f/s. I spoke to Iris and he can go out 4 wks if INR in range. jose Comments (General Comments) : CALL Sydni with results. [phone]. 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 Barney office [phone]/ fax [phone] 08-31-11 He is having trouble with the home meter. He will be retrained over the phone. jose Result reviewed by: Supervising provider name: Specimen Performing Organization Address City/State/Zipcode Ph one Number NUCMED documented in this encounter Visit Diagnoses Not on filedocumented in this encounter
--- OUTSIDE RECORDS SUMMARY | 2019-08-08 14:06 | XMS REPORT | Encounter Summary ---
Author Author [facility] Organization [facility] Address Unknown Phone Unavailable Care Team Providers Care Rubber Process Hand Name Role Phone Sydni Russell PCP Encounter Details Care Team Description Date Type Department Dustin Pittman MD No Forwarding Address 06/20/2012 [facility] HISTORIC CLINI C Visit Social [...]
--- OUTSIDE RECORDS SUMMARY | 2019-08-08 14:06 | XMS REPORT | Encounter Summary ---
Author Author [facility] Organization [facility] Address Unknown Phone Unavailable Care Team Providers Care Blending Plant Operator Name Role Phone Sydni Russell PCP Encounter Details Care Team Description Date Type Department Reid Stock MD [address] [facility] [address] [place] [address] [phone] 08/02/2012 [facility] - Hist [facility] [...] Progress Notes * Reid Stock MD - 08/02/2012 2:48 PM APPLICATIONS SUPPORT ENGINEER Release of Information RE: TENISHA RUSSELL : 1935 [facility] is requesting protected health informat ion from: _Dr. Pravin Proctor____ Purpose: Continuation of care Please release records to the following [facility] Office: [facility] Office [address] [place] [address] or Fax to : Attention : Clemente Fabian Chart Weatherstrip Machine Operator Please send the following: Most recent office visit letter, EKG, labs, including cholesterol, any cardiac t esting and/ or procedures, and most recent medication list. PATIENT IS SCHEDULED TO SEE DR. BRIONES ON 08/04. Thank you for your prompt attention to [...] above address via the U.[employer]. Postal Service. ICATIONS SUPPORT ENGINEER documented in this encounter Plan of Treatment Not on filedocumented as of this encounter Visit Diagnoses Not on filedocumented in this encounter
--- OUTSIDE RECORDS SUMMARY | 2019-08-08 14:06 | XMS REPORT | Encounter Summary ---
Author Author [facility] Organization [facility] Address Unknown Phone Unavailable Care Team Providers Care Geotechnicial Properties Technician Name Role Phone Sydni Russell PCP Encounter Details Care Team Description Date Type Department Elie Ding MD [address] [facility] [address] [place] [address] [phone] 04/19/2012 [facility] - [facility] HISTORIC CLINI C Visit Social [...] Date/Time Associated Diag nosis PROTHROMBIN TIME/INR Routine 04/19/2012 10:44 AM LOG CUT OFF SAWYER documented in this encounter Results * Prothrombin Time/INR (04/19/2012 10:44 AM LOG CUT OFF SAWYER) INR NA NUCMED Comment: Lab Date: 20120419 Date Coumadin/warfarin started: 20100910 Location where INR performed: Lab Lab name and contact information: Iris waddell/ Dr. Proctor([facility]), [id number], [phone] Patient Status: Diagnosis 1: Atrial fibrillation [facility] Diagnosis 2: Target INR Range: 2.0-3.0 Next Lab due: 20120420 Pending Procedure: NA Patient Instructions(comments): Per Sydni he will have his PT/INR checked tomorrow at his doctors office. jose Comments (General Comments) : CALL Sydni with results. [phone]. 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 Barney office [phone]/ fax [phone] 08-31-11 He is having trouble with the home meter. He will be retrained over the phone. jose Result reviewed by: Supervising provider name: Specimen Performing Organization Address City/State/Zipcode Ph one Number NUCMED documented in this encounter Visit Diagnoses Not on filedocumented in this encounter
--- OUTSIDE RECORDS SUMMARY | 2019-08-08 14:06 | XMS REPORT | Encounter Summary ---
Author Author [facility] Organization [facility] Address Unknown Phone Unavailable Care Team Providers Care Facilities Clerk Name Role Phone [place] City[place] head PCP Encounter Details Care Team Description Date Type Department Psychiatric Provider, MD Lars 11/29/2011 [facility] HISTORIC CLINI C Result Social History Date [...] Diag nosis CV US CAROTID DUPLEX Routine 11/29/2011 HISTORICAL documented in this encounter Results * CV US Carotid Duplex historical (11/29/2011) Specimen Narrative Performed At Procedure Category: ECHO NEXTGEN Procedure: Carotid Duplex Procedure Summary: 1. Changes consisten t with right carotid endarterectomy. Patent right ICA bulb. 2. Large amount of heterogenous atheros clerotic plaque in the left ICA bulb without stenosis. 3. Both vertebral arteries are patent w ith antegrade flow. Procedure Note Interface, Rad Conversion - 12/24/2014 5:21 PM CDT Procedure Category: ECHO Procedure: Carotid Duplex Procedure Summary: 1. Changes consistent with right carotid endarterectomy. Patent right ICA bulb. 2. Large amount of heterogenous atherosc lerotic plaque in the left ICA bulb without stenosis. 3. Both vertebral arteries are patent wi th antegrade flow. Performing Organization Address City/State/Zipcode Ph one Number NEXTGEN documented in this encounter Visit Diagnoses Not on filedocumented in this encounter
--- OUTSIDE RECORDS SUMMARY | 2019-08-08 14:06 | XMS REPORT | Encounter Summary ---
Author Author [facility] Organization [facility] Address Unknown Phone Unavailable Care Team Providers Care Controls Engineer Name Role Phone Sydni Russell PCP Encounter Details Care Team Description Date Type Department Reid Stock MD [address] [facility] [address] [place] [address] [phone] 11/29/2011 [facility] HISTORIC CLINI [...] Signs Reading Time Taken Comments Vital Sign 140/90 11/29/2011 3:07 PM CDT Blood Pressure 82 11/29/2011 3:07 PM CDT Pulse - - Temperature - - Respiratory Rate - - Oxygen Saturation - - Inhaled Oxygen Concentration 71.4 kg (157 lb 6.4 oz) 11/29/2011 3:07 PM CDT normal Weight 172.7 cm (5' 8") 11/29/2011 3:07 PM CDT Height 23.93 11/29/2011 3:07 PM CDT Body Mass Index documented in this encounter Progress Notes * Reid Stock MD - 11/29/2011 3:30 PM CDT [address] [address] November 29, 2011 Pravin Proctor MD [address] [place] [address] RE: TENISHA RUSSELL : 1935 Chart #: [id number] Visit provider: Reid Welch M.D. Visit location: [facility] Dear Dr. Proctor: I had the pleasure of seeing TENISHA RUSSELL in the office today. He is 76 years of age and presents with the following chief complaints: atrial fibrillation, c oronary artery disease. HPI: Tenisha is now 76 years of age. He is in permanent atrial fibrillation, but is as ymptomatic with this. He is on chronic warfarin anticoagulation with an INR that typically runs from 2.0-3.0. 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 He has not had any syncope or presyncope. He does have coronary disease and is asymptomatic, though it has been nine years since he underwent PCI. He is on warfarin anticoagulation with an INR that is c ontrolled. Problem List: Arrhythmia Dysrhythmia -Atrial fibrillation 09/14/2002 CAD PCI LM normal, left CX [...] 2. Normal mitral valve with mild regurgitation. Com pared to the previous study on 09/13/2002, the inferior and inferolateral hypokin esis is no longer noted. 09/30/2010 EF Echo EF: 60 Hypertension PVD Carotid Disease 10/28/2010 PVD Cerebral angiography A near occlusion of the right internal carot id artery at its origin due to a 99% stenosis with a "string sign". There is onl y minimal antegrade filling of the cervical right ICA seen with no filling of th e intracranial ICA , MCA or SHAE during the right common carotid injections. A 40% stenosis of the left ICA origin due to focal atherosclerotic plaque. No stenosis of either vertebral artery origin. The right MCA and right SHAE territories are supplied from anterior communicating artery and posterior c ommunicating artery collaterals 10/29/2010 PVD Carotid endarterectomy Right Carotid Endarterectomy- An arterioto my was made in the right common carotid artery and extended into the internal ve ssel with internal carotid artery vessel which had been gently occluded with a v ascular clamp. A complete endarterectomy was carried out. Tobacco abuse Former Past Medical History: Carotid Disease Past Surgical History: Adenoidectomy Tonsillectomy Parathyroidectomy 2002 Cataract Surgery Both 2012 Final Medications: Cardiosterol 0.5 Gram-3.84 Mg-5.76 Mg-32 Mg 3 po daily Red Yeast Rice 600 Mg 4 po daily Azopt 1 % instill 1 drop by ophthalmic route 3 times every day into affected eye(s) Coumadin 1 Mg take 1 -2 tablet daily or as directed Coumadin 5 Mg take 1 tablet by mouth daily or as directed Allergies/Intolerances: No Known Allergies Family History: Mother Cause of was CAD at age 74. Father Cause of was unknown. 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 Diet: Low fat/chol, Low salt Exercise: Active Lifestyle. Gardening Tobacco: Former user of Cigarettes, .50 pack(s) per day for 10.00 year(s). Alcohol: Currently drinks 1 glass of wine occasionally Caffeine: Caffeine use: 2 cups of tea ROS: 12-point review of systems is negative with the following exceptions: Pulmonary: Snore Cardiovascular: Irregular or fast rhythm Hematology: Bleed or bruise easily Endocrine/Psych: Cold intolerance Physical Exam: Vital Signs The patient is 5ft 8in tall, and weighs 157.40lbs. The BMI is 23.90 . Blood pressure taken in the left arm is 140/90 mmHg in the sitting position. The pulse is 82. The rhythm is regular. Const The patient is a well-developed, well-nourished male. HEENT The pupils are equal and round. The patient's sclerae are clear. There i s no corneal arcus. There are no xanthelasmas noted. The patient's neck veins are flat. Pulm Lungs are clear to auscultation. Thorax There is no evidence of pectus excavatum. The point of maximal impulse is normal. No murmurs noted. Cardiac Irregular rate and rhythm. Abd The patient has no abdominal tenderness to palpation. There is no hepatomegaly. There is no splenomegaly. The abdominal aorta is of normal size . EXT The extremities are warm to touch. There is no edema noted. Skin The skin is warm and dry. M/S The patient's gait is normal. Neuro/Psych The patient is alert and oriented to time, person and place. The pa blanco's mood is normal. Most Recent Lipids Available for Review: Date Collected: 11/16/2011 Fasting: Fasting unknown Total Cholesterol: 188 HDL: 44 LDL: 130 Triglycerides: 68 Ratio: 4.27 Glucose: 68 ALT 10 Impression: 1. Coronary diseasestable and asymptomatic. 2. Hypertensioncontrolled. 3. Dyslipidemiacontrolled. He does not tolerate statins. 4. Nine years post percutaneous coronary intervention. Details are outlined abov e. 5. One year post right carotid endarterectomycarotid duplex today showed wide patency of the right carotid endarterectomy. A large amount of plaque was noted in the left bulb, but no hemodynamically significant stenosis was present. Plan: 1. Red yeast rice four capsules per day. 2. Daily exercise. 3. We discussed a statin. He is not willing to try one. He will take Cardiostero l three capsules per day. 4. Recheck lipids in three months. Follow up: Reid Welch M.D. 1 Year Thank you for allowing me to participate in TENISHA RUSSELL's care. If I can be of any further assistance, please do not hesitate to contact me. Sincerely, Reid Welch M.D. JHO/dm F: 12/02/2011 documented in this encounter Plan of Treatment Not on filedocumented as of this encounter Visit Diagnoses Not on filedocumented in this encounter
--- OUTSIDE RECORDS SUMMARY | 2019-08-08 14:06 | XMS REPORT | Encounter Summary ---
Author Author [facility] Organization [facility] Address Unknown Phone Unavailable Care Team Providers Care Hot Metal Car Operator Name Role Phone [place] ValleySyd[place] head PCP Encounter Details Care Team Description Date Type Department Reid Stock MD [address] [facility] [address] [place] [address] [phone] 12/09/2011 [facility] HISTORIC [...]
--- OUTSIDE RECORDS SUMMARY | 2019-08-08 14:06 | XMS REPORT | Encounter Summary ---
Author Author [facility] Organization [facility] Address Unknown Phone Unavailable Care Team Providers Care Booking Prizer Name Role Phone PCP Unavailable Encounter Details Care Team Description Date Type Department Reid Stock MD [address] [facility] [facility] [address] [place] [address] [place] [address] [phone] Occlusion and stenosis of carotid artery without mention of cerebral infarction 11/29/2011 [place] [address] Social History Date Tobacco Use Types Packs/Day [...] tablet (81MG) by oral route every day 07/01/2011 [...]
--- OUTSIDE RECORDS SUMMARY | 2019-08-08 14:06 | XMS REPORT | Encounter Summary ---
Author Author [facility] Organization [facility] Address Unknown Phone Unavailable Care Team Providers Care Network Systems Operator Name Role Phone Sydni Russell PCP Encounter Details Care Team Description Date Type Department Reid Stock MD [address] [facility] [address] [place] [address] [phone] 08/04/2012 [facility] - Hist [facility] HISTORIC CLINI C Visit Social [...] Reading Time Taken Comments Vital Sign 130/82 08/04/2012 2:57 PM PLASTIC TILE SETTER Blood Pressure 110 08/04/2012 2:57 PM PLASTIC TILE SETTER Pulse - - Temperature - - Respiratory Rate - - Oxygen Saturation - - Inhaled Oxygen Concentration 76.2 kg (168 lb) 08/04/2012 2:57 PM PLASTIC TILE SETTER overweight Weight 172.7 cm (5' 8") 08/04/2012 2:57 PM PLASTIC TILE SETTER Height 25.54 08/04/2012 2:57 PM PLASTIC TILE SETTER Body Mass Index documented in this encounter Progress Notes * Reid Stock MD - 08/04/2012 2:30 PM PLASTIC TILE SETTER [facility] Office [address] [place] [address] August 04, 2012 Pravin Proctor MD [address] [place] [address] RE: TENISHA RUSSELL : 1935 Chart #: [id number] Visit provider: Reid Welch M.D. Visit location: [facility] Dear Dr. Proctor: I had the pleasure of seeing TENISHA RUSSELL in the office today. He is 77 years of age and presents with the following chief complaints: atrial fibrillation, c oronary artery disease. HPI: Mr. Russell is 77 years of age. 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 He has carotid disease and underwent carotid endarterectomy approximately two years ago. He did have TIA symptoms prior to that procedure. He has perman ent atrial fibrillation. The rates are mildly elevated today. At home, they ty pically run in the 70-80 range. He is on chronic warfarin anticoagulation. He takes red yeast rice for his dyslipidemia. He did not tolerate a statin in the past. His LDL is not ideal yet. Problem List: Arrhythmia Dysrhythmia -Atrial fibrillation 09/14/2002 [...] clamp. A complete endarterectomy was carried out. 11/29/2011 PVD Carotid Duplex 1. Changes consistent with right carotid endartere ctomy. Patent right ICA bulb. 2. Large amount of heterogeneous atherosclerotic p laque in the left ICA bulb without stenosis. 3. Both vertebral arteries are brady nt with antegrade flow. Tobacco Abuse Former Past Medical History: Carotid Disease Long-term anticoagulation Past Surgical History: Adenoidectomy Tonsillectomy Parathyroidectomy 2002 Cataract Surgery Both 2011 Final Medications: Aspirin 81 Mg take 1 tablet (81MG) by oral route every day CardioSterol 0.5 Gram-3.84 Mg-5.76 Mg-32 Mg 3 po [...] glass of wine daily Caffeine: Caffeine use: 2 cups of tea ROS: 12-point review of systems is negative with the following exceptions: Constitutional: Fatigue Pulmonary: Snore Cardiovascular: RLS GI: Nausea/Vomiting Neuro: Disequilibrium Hematology: Anemia Physical Exam: Vital Signs The patient is 5ft 8in tall, and weighs 168lbs. The BMI is 25.50. B lood pressure taken in the left arm is 130/82 mmHg in the sitting position. The pulse is 110 . The rhythm is irregular. Const The patient [...] maximal impulse is normal. No murmurs noted. Irregular ra te and rhythm. Abd The patient has no abdominal tenderness to palpation. There is no hepatomeg anna. There is no splenomegaly. The abdominal aorta is of normal size. Vasc Distal pulses 2+ throughout with no carotid bruits noted. EXT The extremities are warm to touch. There is no edema noted. Skin The skin is warm and dry. M/S The patient's gait is normal. Neuro/Psych The patient is alert and oriented to time, person and place. The pa tient's mood is normal. EKG: Rhythm: Atrial fibrillation with uncontrolled ventricular response rate and PVC 's Rate: 109 Most Recent Lipids Available for Review: Date Collected: 11/16/2011 Fasting: Fasting unknown Total Cholesterol: 188 HDL: 44 LDL: 130 Triglycerides: 68 Ratio: 4.27 Glucose: 68 ALT 10 Impression: 1. Permanent atrial fibrillation. His rate is high-normal today at 109. At derrick e, it has been around the 70-80 range. His daughter sees him regularly and she is a physician. 2. Chronic warfarin anticoagulation. His INR typically runs 2.0-3.0. 3. Dyslipidemia. I would like to see his LDL under 100. He does not tolerate p rescription cholesterol lowering medications. 4. Carotid disease, currently asymptomatic. He is two years post carotid endart erectomy. He is due for a repeat carotid duplex scan. Plan: 1. Carotid duplex. 2. Add CardioSterol to his red yeast rice. 3. Recheck lipids in three months. 4. Stay physically active. 5. Aspirin 81 mg daily. He was off this for a period of time. Follow up: Reid Welch M.D. 1 Year Thank you for allowing me to participate in TENISHA RUSSELL's care. If I can be of any further assistance, please do not hesitate to contact me. Sincerely, Reid BANSAL:laureen F: 08/07/2012 TIC TILE SETTER documented in this encounter Plan of Treatment Not on filedocumented as of this encounter Visit Diagnoses Not on filedocumented in this encounter
--- OUTSIDE RECORDS SUMMARY | 2019-08-08 14:06 | XMS REPORT | Encounter Summary ---
Author Author [facility] Organization [facility] Address Unknown Phone Unavailable Care Team Providers Care Legal Activity Adjudicator Name Role Phone Sydni Russell PCP Encounter Details Care Team Description Date Type Department Eriberto Carrasquillo MD [address] [place] [address] [phone] 12/17/2011 [facility] [...] Date/Time Associated Diag nosis PROTHROMBIN TIME/INR Routine 12/17/2011 9:57 AM CDT documented in this encounter Results * Prothrombin Time/INR (12/17/2011 9:57 AM CDT) INR 2.32 [facility] Comment: Lab Date: [id number] Date Coumadin/warfarin started: 20100910 Location where INR performed: Lab Lab name and contact information: Iris Del Cid/ Dr. Proctor([facility]), [id number], [phone] Patient Status: Diagnosis 1: Atrial fibrillation [facility] Diagnosis 2: Target INR Range: 2.0-3.0 Next Lab due: 20111230 Pending Procedure: NA Patient Instructions(comments): Cont 3.5mg daily. Recheck 2 weeks. KD--Unable to leave message. Sent to home address. cjj (Called back, verified dose. KD) Comments (General Comments) : CALL Sydni with results. [phone]. 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 Barney office [phone]/ fax [phone] 08-31-11 He is having trouble with the home meter. He will be retrained over the phone. jm Patient Notified: Yes (Citlali Wolfe) Result reviewed by: Peri Shelton Supervising provider name: Ramin Oneil Specimen Performing Organization Address City/State/Zipcode Ph one Number [facility] documented in this encounter Visit Diagnoses Not on filedocumented in this encounter
--- OUTSIDE RECORDS SUMMARY | 2019-08-08 14:06 | XMS REPORT | Encounter Summary ---
Author Author [facility] Organization [facility] Address Unknown Phone Unavailable Care Team Providers Care Hand Buffing Wheel Former Name Role Phone Sydni Russell PCP Encounter Details Care Team Description Date Type Department [facility] Provider, MD Lars 01/26/2012 [facility] - Hist [facility] HISTORIC CLINI C Visit Social [...] Date/Time Associated Diag nosis PROTHROMBIN TIME/INR Routine 01/26/2012 8:19 AM CDT documented in this encounter Results * Prothrombin Time/INR (01/26/2012 8:19 AM CDT) INR 2.20 [facility] Comment: Lab Date: 20120125 Date Coumadin/warfarin started: 20100910 Location where INR performed: Lab Lab name and contact information: Iris 4 wks siri r/ Dr. Proctor([facility]), [id number], [phone] Patient Status: Diagnosis 1: Atrial fibrillation [facility] Diagnosis 2: Target INR Range: 2.0-3.0 Next Lab due: 20120222 Pending Procedure: NA Patient Instructions(comments): cont 3.5mg daily and recheck in 4 wks. cjj--- Sydni v/u sd Comments (General Comments) : CALL Sydni with results. [phone]. 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 Barney office [phone]/ fax [phone] 08-31-11 He is having trouble with the home meter. He will be retrained over the phone. jm Patient Notified: Yes (Stacy Jaquez) Result reviewed by: Citlali Wolfe Supervising provider name: Eriberto Carrasquillo Specimen Performing Organization Address City/State/Zipcode Ph one Number [facility] documented in this encounter Visit Diagnoses Not on filedocumented in this encounter
--- OUTSIDE RECORDS SUMMARY | 2019-08-08 14:06 | XMS REPORT | Encounter Summary ---
Author Author [facility] Organization [facility] Address Unknown Phone Unavailable Care Team Providers Care Four Slide Machine Setter Name Role Phone Sydni Russell PCP Encounter Details Care Team Description Date Type Department Eriberto Carrasquillo MD [address] [place] [address] [phone] 04/21/2012 [facility] [...] Date/Time Associated Diag nosis PROTHROMBIN TIME/INR Routine 04/21/2012 11:15 AM LINE OUT WORKER documented in this encounter Results * Prothrombin Time/INR (04/21/2012 11:15 AM LINE OUT WORKER) INR 2.40 [facility] Comment: Lab Date: 20120421 Date Coumadin/warfarin started: 20100910 Location where INR performed: Lab Lab name and contact information: Iris waddell/ Dr. Proctor([facility]), [id number], [phone] Patient Status: Diagnosis 1: Atrial fibrillation [facility] Diagnosis 2: Target INR Range: 2.0-3.0 Next Lab due: 20120519 Pending Procedure: NA Patient Instructions(comments): cont 3.5mg daily, blayne 4wks-jcm----Spoke with pts. dttr. Sydni. She will notify pt. v/u/lm Comments (General Comments) : CALL Sydni with results. [phone]. 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 Barney office [phone]/ fax [phone] 08-31-11 He is having trouble with the home meter. He will be retrained over the phone. Patient Notified: Yes (Remedios Bianchi) Result reviewed by: Sena Francisco Supervising provider name: Eriberto Carrasquillo Specimen Performing Organization Address City/State/Zipcode Ph one Number [facility] documented in this encounter Visit Diagnoses Not on filedocumented in this encounter
--- OUTSIDE RECORDS SUMMARY | 2019-08-08 14:06 | XMS REPORT | Encounter Summary ---
Author Author [facility] Organization [facility] Address Unknown Phone Unavailable Care Team Providers Care Wash Driller Name Role Phone Sydni Russell PCP Encounter Details Care Team Description Date Type Department Dustin Pittman MD No Forwarding Address 03/10/2012 [facility] Date/Time Associated Diag nosis PROTHROMBIN TIME/INR Routine 03/10/2012 3:24 PM CDT documented in this encounter Results * Prothrombin Time/INR (03/10/2012 3:24 PM CDT) INR 2.10 [facility] Comment: Lab Date: 20120310 Date Coumadin/warfarin started: 20100910 Location where INR performed: Lab Lab name and contact information: Iris waddell/ Dr. Proctor([facility]), [id number], [phone] Patient Status: Diagnosis 1: Atrial fibrillation [facility] Diagnosis 2: Target INR Range: 2.0-3.0 Next Lab due: 20120407 Pending Procedure: NA Patient Instructions(comments): cont 3.5mg daily, blayne 4wks./lm......... spoke to celina mcgee/u--jcm Comments (General Comments) : CALL Sydni with results. [phone]. 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 Barney office [phone]/ fax [phone] 08-31-11 He is having trouble with the home meter. He will be retrained over the phone. jm Patient Notified: Yes (Sena Francisco) Result reviewed by: Remedios Bianchi Supervising provider name: Eriberto Carrasquillo Specimen Performing Organization Address City/State/Zipcode Ph one Number [facility] documented in this encounter Visit Diagnoses Not on filedocumented in this encounter
--- OUTSIDE RECORDS SUMMARY | 2019-08-08 14:06 | XMS REPORT | Encounter Summary ---
Author Author [facility] Organization [facility] Address Unknown Phone Unavailable Care Team Providers Care Bridge Maintainer Name Role Phone Sydni Russell PCP Encounter Details Care Team Description Date Type Department Altaf Vasques MD [address] [facility] [address] [place], [place] [id number] 06/29/2012 [facility] [...] Date/Time Associated Diag nosis PROTHROMBIN TIME/INR Routine 06/29/2012 3:16 PM REFERENCE AND INSTRUCTION LIBRARIAN documented in this encounter Results * Prothrombin Time/INR (06/29/2012 3:16 PM REFERENCE AND INSTRUCTION LIBRARIAN) INR 2.60 [facility] Comment: Lab Date: 20120629 Date Coumadin/warfarin started: 20100910 Location where INR performed: Lab Lab name and contact information: Iris 4 wks siri r/ Dr. Proctor([facility]), [phone], [phone] Patient Status: Diagnosis 1: Atrial fibrillation [facility] Diagnosis 2: Target INR Range: 2.0-3.0 Next Lab due: 20120727 Pending Procedure: NA Patient Instructions(comments): cont 3.5mg daily ck in 4 wk/sd---left message with results and instructions on patients daughter Sydni. cjj Comments (General Comments) : CALL Sydni with results. [phone]. 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 Barney office [phone]/ fax [phone] 08-31-11 He is having trouble with the home meter. He will be retrained over the phone. jm Patient Notified: Yes (Citlali Wolfe) Result reviewed by: Stacy Jaquez Supervising provider name: Eriberto Carrasquillo Specimen Performing Organization Address City/State/Zipcode Ph one Number [facility]ED documented in this encounter Visit Diagnoses Not on filedocumented in this encounter
--- OUTSIDE RECORDS SUMMARY | 2019-08-08 14:06 | XMS REPORT | Encounter Summary ---
Author Author [facility] Organization [facility] Address Unknown Phone Unavailable Care Team Providers Care Application Development Team Lead Name Role Phone Sydni Russell PCP Encounter Details Care Team Description Date Type Department Dustin Pittman MD No Forwarding Address 06/12/2012 [facility] - Hist [facility] [...] Date/Time Associated Diag nosis PROTHROMBIN TIME/INR Routine 06/12/2012 10:04 AM OFFICE MACHINE SERVICE SUPERVISOR documented in this encounter Results * Prothrombin Time/INR (06/12/2012 10:04 AM OFFICE MACHINE SERVICE SUPERVISOR) INR NA [facility] Comment: Lab Date: 20120612 Date Coumadin/warfarin started: 20100910 Location where INR performed: Lab Lab name and contact information: Iris waddell/ Dr. Proctor([facility]), [id number], [phone] Patient Status: Diagnosis 1: Atrial fibrillation [facility] Diagnosis 2: Target INR Range: 2.0-3.0 Next Lab due: 20120613 Pending Procedure: NA Patient Instructions(comments): Spoke with pts. Bernice she said pt. will ck. tomorrow./lm Comments (General Comments) : CALL Sydni with results. [phone]. 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 Barney office [phone]/ fax [phone] 08-31-11 He is having trouble with the home meter. He will be retrained over the phone. jm Patient Notified: Yes (Remedios Bianchi) Result reviewed by: Remedios Bianchi Supervising provider name: Specimen Performing Organization Address City/State/Zipcode Ph one Number [facility] documented in this encounter Visit Diagnoses Not on filedocumented in this encounter
--- OUTSIDE RECORDS SUMMARY | 2019-08-08 14:07 | XMS REPORT | Encounter Summary ---
Author Author [facility] Organization [facility] Address Unknown Phone Unavailable Care Team Providers Care Armored Car Driver Name Role Phone Sydni Russell PCP Encounter Details Care Team Description Date Type Department [facility] Provider, MD Lars 03/31/2011 [facility] Visit Social History Date [...] Date/Time Associated Diag nosis PROTHROMBIN TIME/INR Routine 03/26/2011 2:07 PM CDT documented in this encounter Results * Prothrombin Time/INR (03/26/2011 2:07 PM CDT) INR 1.79 NUCMED Comment: Lab Date: [id number] Date Coumadin/warfarin started: 20100910 Location where INR performed: Lab Lab name and contact information: Dr. Proctor([facility]), [id number], [phone] Patient Status: Diagnosis 1: Atrial fibrillation [facility] Diagnosis 2: Target INR Range: 2.0-3.0 Next Lab due: 20110330 Pending Procedure: NA Patient Instructions(comments): take 5mg today then resume 3.5mg daily ck in 1 wk. spoke w pt. v/u. rep back. ds Comments (General Comments) : CALL Sydni with results. [phone]. 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 Barney office [phone]/ fax [phone] 03-31-11 [facility]ris is sending meter to Elissa Matias for training. jose 12-28-10 faxed home monitorpapers per patient request to [facility], test 1-4x mthly/sd Patient Notified: Yes (Elie Goldberg) Result reviewed by: Stacy Jaquez Supervising provider name: Eriberto Carrasquillo Specimen Performing Organization Address City/State/Zipcode Ph one Number NUCMED documented in this encounter Visit Diagnoses Not on filedocumented in this encounter
--- OUTSIDE RECORDS SUMMARY | 2019-08-08 14:07 | XMS REPORT | Encounter Summary ---
Author Author [facility] Organization [facility] Address Unknown Phone Unavailable Care Team Providers Care Fondant Machine Operator Name Role Phone WinfieldSydni head PCP Encounter Details Care Team Description Date Type Department Yo Roberts MD [address] [facility] [address] [place] [address] [phone] 06/30/2011 [facility] Visit Social [...]
--- OUTSIDE RECORDS SUMMARY | 2019-08-08 14:07 | XMS REPORT | Encounter Summary ---
Author Author [facility] Organization [facility] Address Unknown Phone Unavailable Care Team Providers Care Inspection Engineer Name Role Phone Arely Russell PCP Encounter Details Care Team Description Date Type Department [facility] Provider, MD Lars 05/17/2011 [facility] - Hist [facility] Visit Social History Date [...] Date/Time Associated Diag nosis PROTHROMBIN TIME/INR Routine 05/17/2011 8:50 AM AMMONIA BOX OPERATOR documented in this encounter Results * Prothrombin Time/INR (05/17/2011 8:50 AM AMMONIA BOX OPERATOR) INR 2.20 NUCMED Comment: Lab Date: [id number] Date Coumadin/warfarin started: 20100910 Location where INR performed: Lab Lab name and contact information: Dr. Proctor([facility]), [id number], [phone] Patient Status: Diagnosis 1: Atrial fibrillation [facility] Diagnosis 2: Target INR Range: 2.0-3.0 Next Lab due: 20110529 Pending Procedure: NA Patient Instructions(comments): cont 3.5mg daily ck in 2 wk. spoke arely. v/u r/b. ds Comments (General Comments) : CALL Arely with results. [phone]. 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 Barney office [phone]/ fax [phone] 03-31-11 Iris is sending meter to Elissa [...]
--- OUTSIDE RECORDS SUMMARY | 2019-08-08 14:07 | XMS REPORT | Encounter Summary ---
Author Author [facility] Organization [facility] Address Unknown Phone Unavailable Care Team Providers Care Underwriting Service Representative Name Role Phone Sydni Russell PCP Encounter Details Care Team Description Date Type Department Fernando Santacruz MD [address] [facility] [address] [place], [place] [id number] 03/15/2011 [facility] [...] Date/Time Associated Diag nosis PROTHROMBIN TIME/INR Routine 03/15/2011 10:34 AM CDT documented in this encounter Results * Prothrombin Time/INR (03/15/2011 10:34 AM CDT) INR NA NUCMED Comment: Lab Date: [id number] Date Coumadin/warfarin started: 20100910 Location where INR performed: Lab Lab name and contact information: Dr. Proctor([facility]), [id number], [phone] Patient Status: Diagnosis 1: Atrial fibrillation [facility] Diagnosis 2: Target INR Range: 2.0-3.0 Next Lab due: 20110316 Pending Procedure: NA Patient Instructions(comments): I spoke to Aftab with [facility], and they have been trying to reach him for his home meter training. I gave him Sydni's phone number to call. jm Comments (General Comments) : CALL Sydni with results. [phone]. 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 Barney office [phone]/ fax [phone] 12-28-10 faxed home monitorpapers per patient request to [facility] test 1-4x mthly/sd Result reviewed by: Supervising provider name: Specimen Performing Organization Address City/State/Zipcode Ph one Number NUCMED documented in this encounter Visit Diagnoses Not on filedocumented in this encounter
--- OUTSIDE RECORDS SUMMARY | 2019-08-08 14:07 | XMS REPORT | Encounter Summary ---
Author Author [facility] Organization [facility] Address Unknown Phone Unavailable Care Team Providers Care Certified Real Estate Appraiser Name Role Phone MissionSydni head PCP Encounter Details Care Team Description Date Type Department Reid Stock MD [address] [facility] [address] [place] [address] [phone] 11/15/2011 [facility] Hist [facility] HISTORIC [...]
--- OUTSIDE RECORDS SUMMARY | 2019-08-08 14:07 | XMS REPORT | Encounter Summary ---
Author Author [facility] Organization [facility] Address Unknown Phone Unavailable Care Team Providers Care Private Duty Aide Name Role Phone Sydni Russell PCP Encounter Details Care Team Description Date Type Department Eriberto Carrasquillo MD [address] [place] [address] [phone] 09/17/2011 [facility] [...] Date/Time Associated Diag nosis PROTHROMBIN TIME/INR Routine 09/17/2011 12:29 PM CDT documented in this encounter Results * Prothrombin Time/INR (09/17/2011 12:29 PM CDT) INR 2.12 NUCMED Comment: Lab Date: [id number] Date Coumadin/warfarin started: 20100910 Location where INR performed: Lab Lab name and contact information: I[facility] Del Cid/ Dr. Proctor([facility]), [id number], [phone] Patient Status: Diagnosis 1: Atrial fibrillation [facility] Diagnosis 2: Target INR Range: 2.0-3.0 Next Lab due: 20111001 Pending Procedure: NA Patient Instructions(comments): Cont 3.5mg daily. Recheck 2 weeks. KD--- Sydni v/u adina Comments (General Comments) : CALL Sydni with results. [phone]. 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 Barney office [phone]/ fax [phone] 08-31-11 He is having trouble with the home meter. He will be retrained over the phone. jm Patient Notified: Yes (Stacy Jaquez) Result reviewed by: Peri Shelton Supervising provider name: Eriberto Carrasquillo Specimen Performing Organization Address City/State/Zipcode Ph one Number NUCMED documented in this encounter Visit Diagnoses Not on filedocumented in this encounter
--- OUTSIDE RECORDS SUMMARY | 2019-08-08 14:07 | XMS REPORT | Encounter Summary ---
Author Author [facility] Organization [facility] Address Unknown Phone Unavailable Care Team Providers Care Welt Stitcher Name Role Phone Syndi Russell PCP Encounter Details Care Team Description Date Type Department Eriberto Carrasquillo MD [address] [place] [address] [phone] 10/04/2011 [facility] [...] Date/Time Associated Diag nosis PROTHROMBIN TIME/INR Routine 10/04/2011 8:32 AM CDT documented in this encounter Results * Prothrombin Time/INR (10/04/2011 8:32 AM CDT) INR 2.00 NUCMED Comment: Lab Date: 20111002 Date Coumadin/warfarin started: 20100910 Location where INR performed: Lab Lab name and contact information: Iris Del Cid/ Dr. Proctor([facility]), [id number], [phone] Patient Status: Diagnosis 1: Atrial fibrillation [facility] Diagnosis 2: Target INR Range: 2.0-3.0 Next Lab due: 20111015 Pending Procedure: NA Patient Instructions(comments): Cont 3.5mg daily. Recheck 2 weeks. KD.....spoke with Sydni Comments (General Comments) : CALL Sydni with results. [phone]. 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 Barney office [phone]/ fax [phone] 08-31-11 He is having trouble with the home meter. He will be retrained over the phone. jm Patient Notified: Yes (Tonja Nice) Result reviewed by: Peri Shelton Supervising provider name: Eriberto Carrasquillo Specimen Performing Organization Address City/State/Zipcode Ph one Number NUCMED documented in this encounter Visit Diagnoses Not on filedocumented in this encounter
--- OUTSIDE RECORDS SUMMARY | 2019-08-08 14:07 | XMS REPORT | Encounter Summary ---
Author Author [facility] Organization [facility] Address Unknown Phone Unavailable Care Team Providers Care Embalmer Apprentice Name Role Phone Sydni Russell PCP Encounter Details Care Team Description Date Type Department [facility] Provider, MD Lars 04/19/2011 [facility] - Hist [facility] HISTORIC CLINI [...] Date/Time Associated Diag nosis PROTHROMBIN TIME/INR Routine 04/19/2011 8:45 AM HELP DESK COORDINATOR documented in this encounter Results * Prothrombin Time/INR (04/19/2011 8:45 AM HELP DESK COORDINATOR) INR 2.10 NUCMED Comment: Lab Date: 20110417 Date Coumadin/warfarin started: 20100910 Location where INR performed: Lab Lab name and contact information: Dr. Proctor([facility]), [id number], [phone] Patient Status: Diagnosis 1: Atrial fibrillation [facility] Diagnosis 2: Target INR Range: 2.0-3.0 Next Lab due: 20110426 Pending Procedure: NA Patient Instructions(comments): cont 3.5mg daily ck in 1 wkk...due to new meter...patients daughter will help patient and voiced understanding. cjj Comments (General Comments) : CALL Sydni with results. [phone]. 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 Barney office [phone]/ fax [phone] 03-31-11 Iris is sending meter to Elissa Matias for training. jose 12-28-10 faxed home monitorpapers per patient request to [facility], test 1-4x mthly/sd Patient Notified: Yes (Citlali Wolfe) Result reviewed by: Stacy Jaquez Supervising provider name: Eriberto Carrasquillo Specimen Performing Organization Address City/State/Zipcode Ph one Number NUCMED documented in this encounter Visit Diagnoses Not on filedocumented in this encounter
--- OUTSIDE RECORDS SUMMARY | 2019-08-08 14:07 | XMS REPORT | Encounter Summary ---
Author Author [facility] Organization [facility] Address Unknown Phone Unavailable Care Team Providers Care Manager Fleet Name Role Phone Sydni Russell PCP Encounter Details Care Team Description Date Type Department Chirag Urrutia MD [address] [facility] [address] [place] [address] [phone] 08/16/2011 [facility] [...] Date/Time Associated Diag nosis PROTHROMBIN TIME/INR Routine 08/16/2011 8:52 AM CDT documented in this encounter Results * Prothrombin Time/INR (08/16/2011 8:52 AM CDT) INR 2.00 NUCMED Comment: Lab Date: [id number] Date Coumadin/warfarin started: 20100910 Location where INR performed: Lab Lab name and contact information: [facility] Pro[facility]), [id number], [phone] Patient Status: Diagnosis 1: Atrial fibrillation [facility] Diagnosis 2: Target INR Range: 2.0-3.0 Next Lab due: 20110824 Pending Procedure: NA Patient Instructions(comments): rcvd 3-12-12 cont 4mg daily ck in 10 days (Called dtr Sydni, voiced understanding. KD) Comments (General Comments) : CALL Sydni with results. [phone]. 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 Barney office [phone]/ fax [phone] 03-31-11 Iris is sending meter to Elissa Matias for training. jose 12-28-10 faxed home monitorpapers per patient request to [facility], test 1-4x mthly/sd Patient Notified: Yes (Peri Shelton) Result reviewed by: Stacy Jaquez Supervising provider name: Eriberto Carrasquillo Specimen Performing Organization Address City/State/Zipcode Ph one Number NUCMED documented in this encounter Visit Diagnoses Not on filedocumented in this encounter
--- OUTSIDE RECORDS SUMMARY | 2019-08-08 14:07 | XMS REPORT | Encounter Summary ---
Author Author [facility] Organization [facility] Address Unknown Phone Unavailable Care Team Providers Care Authorization Representative Name Role Phone YvonneSydni head PCP Encounter Details Care Team Description Date Type Department [facility] Provider, MD Lars 05/03/2011 [facility] - Hist [facility] HISTORIC [...] Date/Time Associated Diag nosis PROTHROMBIN TIME/INR Routine 05/03/2011 8:41 AM SYSTEMS TECHNOLOGIST documented in this encounter Results * Prothrombin Time/INR (05/03/2011 8:41 AM SYSTEMS TECHNOLOGIST) INR 2.30 NUCMED Comment: Lab Date: 20110501 Date Coumadin/warfarin started: 20100910 Location where INR performed: Lab Lab name and contact information: Dr. Proctor([facility]), [id number], [phone] Patient Status: Diagnosis 1: Atrial fibrillation [facility] Diagnosis 2: Target INR Range: 2.0-3.0 Next Lab due: 20110508 Pending Procedure: NA Patient Instructions(comments): rcvd 05-03-11 3 of 4 new meter cont 3.5mg daily ck in 1 wk---patients daughter notified and voiced understanding. cjj Comments (General Comments) : CALL Sydni with results. [phone]. 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 Barney office [phone]/ fax [phone] 03-31-11 Iris is sending meter to Elissa [...]
--- OUTSIDE RECORDS SUMMARY | 2019-08-08 14:07 | XMS REPORT | Encounter Summary ---
Author Author [facility] Organization [facility] Address Unknown Phone Unavailable Care Team Providers Care Director Correctional Agency Name Role Phone Sydni Russell PCP Encounter Details Care Team Description Date Type Department Elie Ding MD [address] [facility] [address] [place] [address] [phone] 10/26/2011 [facility] Visit [...] Date/Time Associated Diag nosis PROTHROMBIN TIME/INR Routine 10/26/2011 5:22 PM CDT documented in this encounter Results * Prothrombin Time/INR (10/26/2011 5:22 PM CDT) INR 2.05 NUCMED Comment: Lab Date: 20111026 Date Coumadin/warfarin started: 20100910 Location where INR performed: Lab Lab name and contact information: [facility]ris Mike Meter/ Dr. Proctor([facility]), [id number], [phone] Patient Status: Diagnosis 1: Atrial fibrillation [facility] Diagnosis 2: Target INR Range: 2.0-3.0 Next Lab due: 20111109 Pending Procedure: NA Patient Instructions(comments): Cont 3.5mg daily. Recheck 2 weeks--- Sydni v/u adina Comments (General Comments) : CALL Sydni with results. [phone]. 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 Barney office [phone]/ fax [phone] 08-31-11 He is having trouble with the home meter. He will be retrained over the phone. jm Patient Notified: Yes (Stacy Jaquez) Result reviewed by: Stacy Jaquez Supervising provider name: Eriberto Carrasquillo Specimen Performing Organization Address City/State/Zipcode Ph one Number NUCMED documented in this encounter Visit Diagnoses Not on filedocumented in this encounter
--- OUTSIDE RECORDS SUMMARY | 2019-08-08 14:07 | XMS REPORT | Encounter Summary ---
Author Author [facility] Organization [facility] Address Unknown Phone Unavailable Care Team Providers Care Fishing Vessel Operator Name Role Phone Sydni Russell PCP Encounter Details Care Team Description Date Type Department [facility] Provider, MD Lars 04/07/2011 [facility] - Hist [facility] C Visit Social History Date [...] Date/Time Associated Diag nosis PROTHROMBIN TIME/INR Routine 04/07/2011 11:00 AM CDT documented in this encounter Results * Prothrombin Time/INR (04/07/2011 11:00 AM CDT) INR 2.90 NUCMED Comment: Lab Date: 20110407 Date Coumadin/warfarin started: 20100910 Location where INR performed: Lab Lab name and contact information: Dr. Proctor([facility]), [id number], [phone] Patient Status: Diagnosis 1: Atrial fibrillation [facility] Diagnosis 2: Target INR Range: 2.0-3.0 Next Lab due: 20110421 Pending Procedure: NA Patient Instructions(comments): cont 3.5mg daily ck in 2 wk.--- Sydni v/u sd Comments (General Comments) : CALL Sydni with results. [phone]. 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 Barney office [phone]/ fax [phone] 03-31-11 Iris is sending meter to Elissa Matias for training. jose 12-28-10 faxed home monitorpapers per patient request to [facility], test 1-4x mthly/sd Patient Notified: Yes (Stacy Gisele) Result reviewed by: Tonja Nice Supervising provider name: Eriberto Carrasquillo Specimen Performing Organization Address City/State/Zipcode Ph one Number NUCMED documented in this encounter Visit Diagnoses Not on filedocumented in this encounter
--- OUTSIDE RECORDS SUMMARY | 2019-08-08 14:07 | XMS REPORT | Encounter Summary ---
Author Author [facility] Organization [facility] Address Unknown Phone Unavailable Care Team Providers Care Server Administrator Name Role Phone Sydni Russell PCP Encounter Details Care Team Description [place] [address] [place] [address] [phone] 09/15/2011 [facility] Hist [facility] [...] Date/Time Associated Diag nosis PROTHROMBIN TIME/INR Routine 09/15/2011 3:59 PM CDT documented in this encounter Results * Prothrombin Time/INR (09/15/2011 3:59 PM CDT) INR NA NUCMED Comment: Lab Date: 20110915 Date Coumadin/warfarin started: 20100910 Location where INR performed: Lab Lab name and contact information: [facility]ris Mike Meter/ Dr. Proctor([facility]), [id number], [phone] Patient Status: Diagnosis 1: Atrial fibrillation [facility] Diagnosis 2: Target INR Range: 2.0-3.0 Next Lab due: 20110917 Pending Procedure: NA Patient Instructions(comments): OOT will go to lab Jeb per /sd Comments (General Comments) : CALL Sydni with results. [phone]. 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 Barney office [phone]/ fax [phone] 08-31-11 He is having trouble with the home meter. He will be retrained over the phone. jm Patient Notified: Yes (Stacy Jaquez) Result reviewed by: Stacy Jaquez Supervising provider name: Specimen Performing Organization Address City/State/Zipcode Ph one Number NUCMED documented in this encounter Visit Diagnoses Not on filedocumented in this encounter
--- OUTSIDE RECORDS SUMMARY | 2019-08-08 14:07 | XMS REPORT | Encounter Summary ---
Author Author [facility] Organization [facility] Address Unknown Phone Unavailable Care Team Providers Care Dry Plasterer Helper Name Role Phone Sydni Russell PCP Encounter Details Care Team Description Date Type Department [facility] Provider, MD Lars 05/10/2011 [facility] - Hist THREE [...] Date/Time Associated Diag nosis PROTHROMBIN TIME/INR Routine 05/10/2011 8:36 AM PRIMARY MILL ROLLER documented in this encounter Results * Prothrombin Time/INR (05/10/2011 8:36 AM PRIMARY MILL ROLLER) INR 1.80 NUCMED Comment: Lab Date: 20110508 Date Coumadin/warfarin started: 20100910 Location where INR performed: Lab Lab name and contact information: Dr. Proctor([facility]), [id number], [phone] Patient Status: Diagnosis 1: Atrial fibrillation [facility] Diagnosis 2: Target INR Range: 2.0-3.0 Next Lab due: 20110517 Pending Procedure: NA Patient Instructions(comments): 4 of 4 new meter...... take 5mg tonight then cont 3.5mg daily ck in 1 wk---patients daughter Sydni notified and voiced understanding. cjj Comments (General Comments) : CALL Sydni with results. [phone]. 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 Barney office [phone]/ fax [phone] 03-31-11 Iris is sending meter to Elissa Matias for training. jose 12-28-10 faxed home monitorpapers per patient request to [facility], test 1-4x mthly/sd Patient Notified: Yes (Citlali Wolfe) Result reviewed by: Tonja Nice Supervising provider name: Eriberto Carrasquillo Specimen Performing Organization Address City/State/Zipcode Ph one Number NUCMED documented in this encounter Visit Diagnoses Not on filedocumented in this encounter
--- OUTSIDE RECORDS SUMMARY | 2019-08-08 14:07 | XMS REPORT | Encounter Summary ---
Author Author [facility] Organization [facility] Address Unknown Phone Unavailable Care Team Providers Care Manager Of Selection And Assessment Name Role Phone Sydni Russell PCP Encounter Details Care Team Description Date Type Department [facility] Provider, MD Lars 06/30/2011 [facility] - Hist [...] Date/Time Associated Diag nosis PROTHROMBIN TIME/INR Routine 06/14/2011 8:15 AM SPRAY DRY OPERATOR documented in this encounter Results * Prothrombin Time/INR (06/14/2011 8:15 AM SPRAY DRY OPERATOR) INR 2.30 NUCMED Comment: Lab Date: 20110612 Date Coumadin/warfarin started: 20100910 Location where INR performed: Lab Lab name and contact information: Dr. Proctor([facility]), [id number], [phone] Patient Status: Diagnosis 1: Atrial fibrillation [facility] Diagnosis 2: Target INR Range: 2.0-3.0 Next Lab due: 20110702 Pending Procedure: NA Patient Instructions(comments): cont 3.5mg daily and recheck in 3 wks/sd--patients daughter notified and voiced understanding. cjj Comments (General Comments) : CALL Sydni with results. [phone]. 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 Barney office [phone]/ fax [phone] 03-31-11 Iris is sending meter to Elissa [...]
--- OUTSIDE RECORDS SUMMARY | 2019-08-08 14:07 | XMS REPORT | Encounter Summary ---
Author Author [facility] Organization [facility] Address Unknown Phone Unavailable Care Team Providers Care Nuclear Plant Construction Worker Name Role Phone Sydni Russell PCP Encounter Details Care Team Description Date Type Department Reid Stock MD [address] [facility] [address] [place] [address] [phone] 07/01/2011 [facility] [...] Signs Reading Time Taken Comments Vital Sign 116/74 07/01/2011 1:56 PM EQUIPMENT ANALYST Blood Pressure 88 07/01/2011 1:56 PM EQUIPMENT ANALYST Pulse - - Temperature - - Respiratory Rate - - Oxygen Saturation - - Inhaled Oxygen Concentration 71.3 kg (157 lb 3.2 oz) 07/01/2011 1:56 PM EQUIPMENT ANALYST normal Weight 172.7 cm (5' 8") 07/01/2011 1:56 PM EQUIPMENT ANALYST Height 23.9 07/01/2011 1:56 PM EQUIPMENT ANALYST Body Mass Index documented in this encounter Progress Notes * Reid Stock MD - 07/01/2011 2:30 PM EQUIPMENT ANALYST [facility] Office [address] [place] [id number] July 01, 2011 Pravin Proctor MD [address] [place] [address] RE: TENISHA RUSSELL : 1935 Chart #: [id number] Visit provider: Reid Welch M.D. Visit location: [facility] Dear Dr. Proctor: I had the pleasure of seeing TENISHA RUSSELL in the office today. He is 76 years of age and presents with the following chief complaints: atrial fibrillation, c oronary artery disease. 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 He has a history of asymptomatic high-grade carotid disease. In 10/14, he underwent carotid endarterectomy without any com plications. He is in permanent atrial fibrillation. His rate has been well con trolled. He is on chronic warfarin anticoagulation. He follows his INR at home and this has been in the 2.0 to 3.0 range. He does not have any angina. He do es have a remote history of ischemic heart disease. His PCI was performed appro ximately nine years ago. He has had no recurrent angina. Problem List: Arrhythmia Dysrhythmia -Atrial fibrillation 09/14/2002 CAD PCI LM normal, left CX is also normal. The LAD had 80% proximal stenosis with a 50% diagonal lesion. The right coronary artery was subtotally occluded with a 99% proximal stenosis. PCI with a 4 mm stent in the RCA dilati ng it with a 4.5 mm balloon. The [...] inferolateral hypokine sis is no longer noted. 09/30/2010 EF Echo [...] Abuse Former Past Medical History: Carotid Disease Past Surgical History: Adenoidectomy Tonsillectomy Parathyroidectomy 2001 Final Medications: Azopt 1 % instill 1 drop by ophthalmic route 3 times every day into affected eye(s) Coumadin 1 Mg take 1 -2 tablet daily or as directed Bystolic 5 Mg 1/2 tablet daily Coumadin 5 Mg take 1 tablet by mouth daily or as directed Allergies/Intolerances: No Known Allergies Family History: Mother Cause of was CAD at age 74. Father Cause of was unknown. 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 Diet: Low fat/chol, Low salt Exercise: Active Lifestyle. Gardening Smoking: Former smoker Alcohol: Currently drinks 1 glass of wine occasionally Caffeine: Caffeine use: 2 cups daily of tea ROS: 12-point review of systems is negative with the following exceptions: Constitutional: Fatigue Physical Exam: Vital Signs The patient is 5ft 8in tall, and weighs 157.20lbs. The BMI is 23.90 . Blood pressure taken in the left arm is 116/74 mmHg in the sitting position. The pulse is 88. The rhythm is regular. Const The patient [...] oriented to time, person and place. The yordy simeon's mood is normal. Most Recent Lipids Available for Review: Date Collected: 08/04/2010 Fasting: Fasting Total Cholesterol: 198 HDL: 41 LDL: 147 Triglycerides: 50 Ratio: 4.83 Glucose: 74 ALT 16 HbA1C 5.5 Impression: 1. Permanent atrial fibrillation. His rate is well controlled. He is anticoagu lated. 2. Chronic warfarin anticoagulation, with an INR that is generally in the 2.0 to 3.0 range. 3. Coronary artery disease stable and asymptomatic. A percutaneous coronary intervention was performed in 2003. 4. Hypertension controlled. 5. Dyslipidemia. He is intolerant to prescription statins. He is tolerating ov in-ngs-okigiol red yeast rice and phytosterol esters. Plan: 1. Continue current medications. 2. Follow-up visit with us in approximately six months. At that time, we will r echeck a carotid duplex. He is not in favor of a stress test, as he is afraid a bout the safety of treadmill testing. Testing ordered: Description Interval Carotid duplex By 12/30/2011 Follow up: Reid Welch M.D. 7 Months Thank you for allowing me to participate in TENISHA RUSSELL's care. If I can be of any further assistance, please do not hesitate to contact me. Sincerely, Reid SILVERIOO:malcom F: 07/07/2011 PMENT ANALYST documented in this encounter Plan of Treatment Not on filedocumented as of this encounter Procedures Comments Procedure Name Priority Date/Time Associated Diag nosis PROTHROMBIN TIME/INR Routine 07/01/2011 2:03 PM EQUIPMENT ANALYST documented in this encounter Results * Prothrombin Time/INR (07/01/2011 2:03 PM EQUIPMENT ANALYST) INR 2.00 NUCMED Comment: Lab Date: [id number] Date Coumadin/warfarin started: 20100910 Location where INR performed: Lab Lab name and contact information: Dr. Proctor([facility]), [id number], [phone] Patient Status: Diagnosis 1: Atrial fibrillation [facility] Diagnosis 2: Target INR Range: 2.0-3.0 Next Lab due: 20110729 Pending Procedure: NA Patient Instructions(comments): pt had appt with JHO 07/01/2011. Jweaver cont 3.5mg daily and recheck in 4 wks. cjj (Called pt, voiced understanding. KD) Comments (General Comments) : CALL Sydni with results. [phone]. 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 Barney office [phone]/ fax [phone] 03-31-11 Iris is sending meter to Elissa Matias for training. jose 12-28-10 faxed home monitorpapers per patient request to Iris test 1-4x mthly/sd Patient Notified: Yes (Peri Shelton) Result reviewed by: Citlali Wolfe Supervising provider name: Eriberto Carrasquillo Specimen Performing Organization Address City/State/Zipcode Ph one Number NUCMED documented in this encounter Visit Diagnoses Not on filedocumented in this encounter
--- OUTSIDE RECORDS SUMMARY | 2019-08-08 14:07 | XMS REPORT | Encounter Summary ---
Author Author [facility] Organization [facility] Address Unknown Phone Unavailable Care Team Providers Care Research Biostatistician Name Role Phone La MotteSydni head PCP Encounter Details Care Team Description Date Type Department Reid Stock MD [address] [facility] [address] [place] [address] [phone] 10/21/2011 [facility] HISTORIC [...]
--- OUTSIDE RECORDS SUMMARY | 2019-08-08 14:07 | XMS REPORT | Encounter Summary ---
Author Author [facility] Organization [facility] Address Unknown Phone Unavailable Care Team Providers Care Special Shopper Name Role Phone Sydni Russell PCP Encounter Details Care Team Description Date Type Department [facility] Provider, MD Lars 10/22/2011 [facility] Visit Social History Date [...] Date/Time Associated Diag nosis PROTHROMBIN TIME/INR Routine 10/22/2011 4:39 PM CDT documented in this encounter Results * Prothrombin Time/INR (10/22/2011 4:39 PM CDT) INR NA NUCMED Comment: Lab Date: 20111022 Date Coumadin/warfarin started: 20100910 Location where INR performed: Lab Lab name and contact information: Iris Mike Meter/ Dr. Proctor([facility]), [id number], [phone] Patient Status: Diagnosis 1: Atrial fibrillation [facility] Diagnosis 2: Target INR Range: 2.0-3.0 Next Lab due: 20111025 Pending Procedure: NA Patient Instructions(comments): Spoke with Sydni, will have father check INR Tuesday. Hardik Comments (General Comments) : CALL Sydni with results. [phone]. 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 Barney office [phone]/ fax [phone] 08-31-11 He is having trouble with the home meter. He will be retrained over the phone. jose Result reviewed by: Supervising provider name: Specimen Performing Organization Address City/State/Zipcode Ph one Number NUCMED documented in this encounter Visit Diagnoses Not on filedocumented in this encounter
--- OUTSIDE RECORDS SUMMARY | 2019-08-08 14:07 | XMS REPORT | Encounter Summary ---
Author Author [facility] Organization [facility] Address Unknown Phone Unavailable Care Team Providers Care Dispatcher Chief Coal Slurry Name Role Phone [place] CharlesSydni head PCP Encounter Details Care Team Description Date Type Department Veda Puga MD [address] [facility] [address] [place] [address] [phone] 06/26/2011 [facility] [...]
--- OUTSIDE RECORDS SUMMARY | 2019-08-08 14:07 | XMS REPORT | Encounter Summary ---
Author Author [facility] Organization [facility] Address Unknown Phone Unavailable Care Team Providers Care Medical Lab Assistant Name Role Phone Sydni Russell PCP Encounter Details Care Team Description Date Type Department [facility] Provider, MD Lars 03/15/2011 [facility] Date/Time Associated Diag nosis PROTHROMBIN TIME/INR Routine 03/02/2011 3:33 PM CDT documented in this encounter Results * Prothrombin Time/INR (03/02/2011 3:33 PM CDT) INR 2.10 NUCMED Comment: Lab Date: [id number] Date Coumadin/warfarin started: 20100910 Location where INR performed: Lab Lab name and contact information: Dr. Proctor([facility]), [id number], [id number] Patient Status: Diagnosis 1: Atrial fibrillation [facility] Diagnosis 2: Target INR Range: 2.0-3.0 Next Lab due: 20110316 Pending Procedure: NA Patient Instructions(comments): cont 3.5mg daily and recheck in 2 wks. cjj.....Georgette v/u Comments (General Comments) : CALL Sydni with results. [phone]. 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 Barney office [phone]/ fax [phone] 12-28-10 faxed home monitorpapers per patient request to [facility] test 1-4x mthly/sd Patient Notified: Yes (Mercedes Samuel) Result reviewed by: Citlali Wolfe Supervising provider name: Eriberto Carrasquillo Specimen Performing Organization Address City/State/Zipcode Ph one Number NUCMED documented in this encounter Visit Diagnoses Not on filedocumented in this encounter
--- OUTSIDE RECORDS SUMMARY | 2019-08-08 14:07 | XMS REPORT | Encounter Summary ---
Author Author [facility] Organization [facility] Address Unknown Phone Unavailable Care Team Providers Care Home Health Manager Name Role Phone Sydni Russell PCP Encounter Details Care Team Description Date Type Department Eriberto Carrasquillo MD [address] [place] [address] [phone] 07/26/2011 [facility] [...] Date/Time Associated Diag nosis PROTHROMBIN TIME/INR Routine 07/26/2011 8:27 AM ARMORED CAR GUARD AND DRIVER documented in this encounter Results * Prothrombin Time/INR (07/26/2011 8:27 AM ARMORED CAR GUARD AND DRIVER) INR 1.90 NUCMED Comment: Lab Date: [id number] Date Coumadin/warfarin started: 20100910 Location where INR performed: Lab Lab name and contact information: Dr. Proctor([facility]), [id number], [phone] Patient Status: Diagnosis 1: Atrial fibrillation [facility] Diagnosis 2: Target INR Range: 2.0-3.0 Next Lab due: 20110806 Pending Procedure: NA Patient Instructions(comments): Take 5mg tonight then cont 3.5mg daily. Recheck 2 weeks. KD--- Sydni v/u sd Comments (General Comments) : CALL Sydni with results. [phone]. 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 Barney office [phone]/ fax [phone] 03-31-11 Iris is sending meter to Eilssa Matias for training. jose 12-28-10 faxed home monitorpapers per patient request to [facility], test 1-4x mthly/sd Patient Notified: Yes (Stacy Jaquez) Result reviewed by: Peri Shelton Supervising provider name: Eriberto Carrasquillo Specimen Performing Organization Address City/State/Zipcode Ph one Number NUCMED documented in this encounter Visit Diagnoses Not on filedocumented in this encounter
--- OUTSIDE RECORDS SUMMARY | 2019-08-08 14:07 | XMS REPORT | Encounter Summary ---
Author Author [facility] Organization [facility] Address Unknown Phone Unavailable Care Team Providers Care Investigation Officer Name Role Phone Sydni Russell PCP Encounter Details Care Team Description Date Type Department [facility] Provider, MD Lars 04/26/2011 [facility] - Hist [facility] Visit Social [...] Date/Time Associated Diag nosis PROTHROMBIN TIME/INR Routine 04/26/2011 8:36 AM FISHERIES OFFICER documented in this encounter Results * Prothrombin Time/INR (04/26/2011 8:36 AM FISHERIES OFFICER) INR 2.30 NUCMED Comment: Lab Date: [id number] Date Coumadin/warfarin started: 20100910 Location where INR performed: Lab Lab name and contact information: Dr. Proctor([facility]), [id number], [id number] Patient Status: Diagnosis 1: Atrial fibrillation [facility] Diagnosis 2: Target INR Range: 2.0-3.0 Next Lab due: 20110503 Pending Procedure: NA Patient Instructions(comments): 2 of 4 cont 3.5mg daily ck in 1 wk--Tameara v/u sd Comments (General Comments) : CALL Sydni with results. [phone]. 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 Barney office [phone]/ fax [phone] 03-31-11 Iris is sending meter to Elissa [...]
--- OUTSIDE RECORDS SUMMARY | 2019-08-08 14:07 | XMS REPORT | Encounter Summary ---
Author Author Organization Address Unknown Phone Unavailable Care Team Providers Care Rag Collector Name Role Phone Sydni Russell PCP Encounter Details Care Team Description Date Type Department Eriberto Carrasquillo MD [address] [place] [address] [phone] 08/31/2011 [facility] [...] Date/Time Associated Diag nosis PROTHROMBIN TIME/INR Routine 08/31/2011 4:47 PM CDT documented in this encounter Results * Prothrombin Time/INR (08/31/2011 4:47 PM CDT) INR 2.50 NUCMED Comment: Lab Date: 20110831 Date Coumadin/warfarin started: 20100910 Location where INR performed: Lab Lab name and contact information: Iris Del Cid/ Dr. Proctor([facility]), [id number], [phone] Patient Status: Diagnosis 1: Atrial fibrillation [facility] Diagnosis 2: Target INR Range: 2.0-3.0 Next Lab due: 20110907 Pending Procedure: NA Patient Instructions(comments): He has only been taking 3.5mg daily. He did hold x 1 and 2mg x 1 last week, but went back to his 3.5mg. He will cont. 3.5mg daily. KD. .......Sydni v/u. Comments (General Comments) : CALL Sydni with results. [phone]. 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 Barney office [phone]/ fax [phone] 08-31-11 He is having trouble with the home meter. He will be retrained over the phone. jm Patient Notified: Yes (Mercedes Samuel) Result reviewed by: Supervising provider name: Eriberto Carrasquillo Specimen Performing Organization Address City/State/Zipcode Ph one Number NUCMED documented in this encounter Visit Diagnoses Not on filedocumented in this encounter
--- OUTSIDE RECORDS SUMMARY | 2019-08-08 14:07 | XMS REPORT | Encounter Summary ---
Author Author [facility] Organization [facility] Address Unknown Phone Unavailable Care Team Providers Care Light Armored Reconnaissance Officer Name Role Phone YvonneArely head PCP Encounter Details Care Team Description Date Type Department [facility] Provider, MD Lars 06/01/2011 [facility] - [facility] [...] Date/Time Associated Diag nosis PROTHROMBIN TIME/INR Routine 06/01/2011 8:17 AM DESIGN TECHNOLOGY PROFESSOR documented in this encounter Results * Prothrombin Time/INR (06/01/2011 8:17 AM DESIGN TECHNOLOGY PROFESSOR) INR 2.40 NUCMED Comment: Lab Date: 20110529 Date Coumadin/warfarin started: 20100910 Location where INR performed: Lab Lab name and contact information: Dr. Proctor([facility]), [id number], [phone] Patient Status: Diagnosis 1: Atrial fibrillation [facility] Diagnosis 2: Target INR Range: 2.0-3.0 Next Lab due: 20110614 Pending Procedure: NA Patient Instructions(comments): 06-01-2011 ---cont 3.5mg daily and recheck in 2 wks. latha. spoke w arely. r/b v/u. ds Comments (General Comments) : CALL Arely with results. [phone]. 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 Barney office [phone]/ fax [phone] 03-31-11 Iris is sending meter to Elissa Matias for training. jose 12-28-10 faxed home monitorpapers per patient request to [facility]ris, test 1-4x mthly/sd Patient Notified: Yes (Elie Goldberg) Result reviewed by: Citlali Wolfe Supervising provider name: Eriberto Carrasquillo Specimen Performing Organization Address City/State/Zipcode Ph one Number NUCMED documented in this encounter Visit Diagnoses Not on filedocumented in this encounter
--- OUTSIDE RECORDS SUMMARY | 2019-08-08 14:07 | XMS REPORT | Encounter Summary ---
Author Author [facility] Organization [facility] Address Unknown Phone Unavailable Care Team Providers Care Medical Logistics Specialist Name Role Phone YvonneSydni head PCP Encounter Details Care Team Description Date Type Department [facility] Provider, MD Lars 11/17/2011 [facility] - Hist [facility] Visit Social History [...] Date/Time Associated Diag nosis PROTHROMBIN TIME/INR Routine 11/16/2011 4:49 PM CDT documented in this encounter Results * Prothrombin Time/INR (11/16/2011 4:49 PM CDT) INR 2.40 NUCMED Comment: Lab Date: [id number] Date Coumadin/warfarin started: 20100910 Location where INR performed: Lab Lab name and contact information: Iris Mike Meter/ Dr. Proctor([facility]), [id number], [phone] Patient Status: Diagnosis 1: Atrial fibrillation [facility] Diagnosis 2: Target INR Range: 2.0-3.0 Next Lab due: 20111130 Pending Procedure: NA Patient Instructions(comments): Cont 3.5mg daily. Recheck 2 weeks....spoke with Sydni durand Comments (General Comments) : CALL Sydni with results. [phone]. 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 Barney office [phone]/ fax [phone] 08-31-11 He is having trouble with the home meter. He will be retrained over the phone. jm Patient Notified: Yes (Tonja Nice) Result reviewed by: Tonja Nice Supervising provider name: Eriberto Carrasquillo Specimen Performing Organization Address City/State/Zipcode Ph one Number NUCMED documented in this encounter Visit Diagnoses Not on filedocumented in this encounter
--- OUTSIDE RECORDS SUMMARY | 2019-08-08 14:07 | XMS REPORT | Encounter Summary ---
Author Author [facility] Organization [facility] Address Unknown Phone Unavailable Care Team Providers Care Portrait Studio Photographer Name Role Phone Sydni Russell PCP Encounter Details Care Team Description Date Type Department [facility] Provider, MD Lars 08/31/2011 [facility] - Hist [facility] Visit Social [...] Date/Time Associated Diag nosis PROTHROMBIN TIME/INR Routine 08/24/2011 5:01 PM CDT documented in this encounter Results * Prothrombin Time/INR (08/24/2011 5:01 PM CDT) INR 3.97 NUCMED Comment: Lab Date: 20110824 Date Coumadin/warfarin started: 20100910 Location where INR performed: Lab Lab name and contact information: Dr. Proctor([facility]), [id number], [phone] Patient Status: Diagnosis 1: Atrial fibrillation [facility] Diagnosis 2: Target INR Range: 2.0-3.0 Next Lab due: 20110831 Pending Procedure: NA Patient Instructions(comments): hold tonight then take 2mg tomorrow then cont 4mg daily and recheck in 1 wk. latha--spoke to patients daughter and patient is on Cipro. He will finish tomorrow. She voiced understanding of instructions. latha Comments (General Comments) : CALL Sydni with results. [phone]. 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 Barney office [phone]/ fax [phone] 03-31-11 Iris is sending meter to Elissa Matias for training. jose 12-28-10 faxed home monitorpapers per patient request to Iris, test 1-4x mthly/sd Patient Notified: Yes (Citlali Wolfe) Result reviewed by: Citlali Wolfe Supervising provider name: Eriberto Carrasquillo Specimen Performing Organization Address City/State/Zipcode Ph one Number NUCMED documented in this encounter Visit Diagnoses Not on filedocumented in this encounter
--- OUTSIDE RECORDS SUMMARY | 2019-08-08 14:07 | XMS REPORT | Encounter Summary ---
Author Author [facility] Organization [facility] Address Unknown Phone Unavailable Care Team Providers Care Regional Project Manager Name Role Phone Sydni Russell PCP Encounter Details Care Team Description Date Type Department [facility] ProviderLars MD 08/09/2011 [facility] - Hist [facility] Visit Social [...] Date/Time Associated Diag nosis PROTHROMBIN TIME/INR Routine 08/09/2011 9:19 AM NOTCHED BLADE LOADER documented in this encounter Results * Prothrombin Time/INR (08/09/2011 9:19 AM NOTCHED BLADE LOADER) INR 1.60 NUCMED Comment: Lab Date: [id number] Date Coumadin/warfarin started: 20100910 Location where INR performed: Lab Lab name and contact information: Dr. Proctor([facility]), [id number], [phone] Patient Status: Diagnosis 1: Atrial fibrillation [facility] Diagnosis 2: Target INR Range: 2.0-3.0 Next Lab due: 20110817 Pending Procedure: NA Patient Instructions(comments): take 5mg tonight then change dose to 4mg daily and recheck in 10 days. cjj--Sydni missed couple doses and is on Cipro, took 5mg last pm then resume 4mg daily ck in 1 wk-- Sydni v/u sd Comments (General Comments) : CALL Sydni with results. [phone]. 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 Barney office [phone]/ fax [phone] 03-31-11 Iris is sending meter to Elissa Matias for training. jose 12-28-10 faxed home monitorpapers per patient request to [facility]ris, test 1-4x mthly/sd Patient Notified: Yes (Stacy Jaquez) Result reviewed by: Citlali Wolfe Supervising provider name: Ran Fatima Specimen Performing Organization Address City/State/Zipcode Ph one Number NUCMED documented in this encounter Visit Diagnoses Not on filedocumented in this encounter
--- OUTSIDE RECORDS SUMMARY | 2019-08-08 14:08 | XMS REPORT | Encounter Summary ---
Author Author [facility] Organization [facility] Address Unknown Phone Unavailable Care Team Providers Care Division Traffic Superintendent Name Role Phone PCP Unavailable Encounter Details Care Team Description Date Type Department Reid Stock MD [address] [facility] [address] [place] [address] [phone] [facility] [address] [place] [address] Social History Date Tobacco Use Types Packs/Day [...] tablet (81MG) by oral route every day 09/30/2010 01/08/2015 clopidogrel (PLAVIX) 75 take 1 tablet 0 mg tablet (75MG) by oral route every day 09/04/2010 01/08/2015 COUMADIN 5 mg tablet take [...] tablet (5MG) by oral route every day documented as of this encounter Plan of Treatment Not on filedocumented as of this encounter Procedures Comments Procedure Name Priority Date/Time Associated Diag nosis PROTHROMBIN TIME/INR Routine 01/01/2011 3:38 PM CDT documented in this encounter Results * Prothrombin Time/INR (01/01/2011 3:38 PM CDT) Protime 19.4 (H) 11.7 - 14.3 SEC SUNQUEST INR 1.7 (H) 0.9 - 1.1 SUNQUEST Specimen Blood Performing Organization Address City/State/Zipcode Ph one Number [facility] [address] [place], [place] [address] SUNQUEST documented in this encounter Visit Diagnoses Not on filedocumented in this encounter
--- OUTSIDE RECORDS SUMMARY | 2019-08-08 14:08 | XMS REPORT | Encounter Summary ---
Author Author [facility] Organization [facility] Address Unknown Phone Unavailable Care Team Providers Care Private Branch Exchange Repairer Name Role Phone Pravin Proctor PCP Encounter Details Care Team Description Date Type Department Chirag Urrutia MD [address] [facility] [address] [place] [address] [phone] 01/19/2011 [facility] [...]
--- OUTSIDE RECORDS SUMMARY | 2019-08-08 14:08 | XMS REPORT | Encounter Summary ---
Author Author [facility] Organization [facility] Address Unknown Phone Unavailable Care Team Providers Care Wood Piler Name Role Phone Sydni Russell PCP Encounter Details Care Team Description Date Type Department Altaf Vasques MD [address] [facility] [address] [place], [place] [id number] 12/03/2010 [facility] [...] Date/Time Associated Diag nosis PROTHROMBIN TIME/INR Routine 12/03/2010 10:52 AM CDT documented in this encounter Results * Prothrombin Time/INR (12/03/2010 10:52 AM CDT) INR 4.30 [facility] Comment: Lab Date: [id number] Date Coumadin/warfarin started: 20100910 Location where INR performed: Lab Lab name and contact information: Dr. Proctor([facility]), [id number], [phone] Patient Status: Diagnosis 1: Atrial fibrillation [facility] Diagnosis 2: Target INR Range: 2.0-3.0 Next Lab due: [id number] Pending Procedure: NA Patient Instructions(comments): hold today 2.5mg tomorrow then resume 5mg daily ck on Tue/--- dtr v/u sd Comments (General Comments) : CALL Sydni with results. [phone]. 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 [facility] office [phone]/ fax [phone] Result reviewed by: Supervising provider name: Specimen Performing Organization Address City/State/Zipcode Ph one Number [facility] documented in this encounter Visit Diagnoses Not on filedocumented in this encounter
--- OUTSIDE RECORDS SUMMARY | 2019-08-08 14:08 | XMS REPORT | Encounter Summary ---
Author Author [facility] Organization [facility] Address Unknown Phone Unavailable Care Team Providers Care Logistics Supply Officer Name Role Phone YvonneSydni head PCP Encounter Details Care Team Description Date Type Department [facility] Provider, MD Lars 02/16/2011 [facility] - Hist [facility] Visit Social [...] Date/Time Associated Diag nosis PROTHROMBIN TIME/INR Routine 02/16/2011 12:00 PM CDT documented in this encounter Results * Prothrombin Time/INR (02/16/2011 12:00 PM CDT) INR 2.44 [facility] Comment: Lab Date: [id number] Date Coumadin/warfarin started: 20100910 Location where INR performed: Lab Lab name and contact information: Dr. Proctor([facility]), [id number], [phone] Patient Status: Diagnosis 1: Atrial fibrillation [facility] Diagnosis 2: Target INR Range: 2.0-3.0 Next Lab due: 20110302 Pending Procedure: NA Patient Instructions(comments): cont 3.5mg daily ck in 2 wk......spoke with Sydni durand Comments (General Comments) : CALL Sydni with results. [phone]. 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 Barney office [phone]/ fax [phone] 12-28-10 faxed home monitorpapers per patient request to [facility], test 1-4x mthly/sd Patient Notified: Yes (Tonja Nice) Result reviewed by: Stacy Jaquez Supervising provider name: Kellie Peralta Specimen Performing Organization Address City/State/Zipcode Ph one Number [facility] documented in this encounter Visit Diagnoses Not on filedocumented in this encounter
--- OUTSIDE RECORDS SUMMARY | 2019-08-08 14:08 | XMS REPORT | Encounter Summary ---
Author Author [facility] Organization [facility] Address Unknown Phone Unavailable Care Team Providers Care Photographic Process Screen Maker Name Role Phone YvonneSydni head PCP Encounter Details Care Team Description Date Type Department [facility] Provider, MD Lars 01/04/2011 [facility] Date/Time Associated Diag nosis PROTHROMBIN TIME/INR Routine 01/04/2011 1:23 PM CDT documented in this encounter Results * Prothrombin Time/INR (01/04/2011 1:23 PM CDT) INR 1.70 [facility] Comment: Lab Date: [id number] Date Coumadin/warfarin started: 20100910 Location where INR performed: Lab Lab name and contact information: Dr. Proctor([facility]), [id number], [phone] Patient Status: Diagnosis 1: Atrial fibrillation [facility] Diagnosis 2: Target INR Range: 2.0-3.0 Next Lab due: 20110111 Pending Procedure: NA Patient Instructions(comments): take 7.5mg tonight then cont 5mg daily and recheck in 1 wk cjj......spoke with Leda She can't check until Tuesday. Comments (General Comments) : CALL Sydni with results. [phone]. patient daughter patient is a pharm/[facility] [phone]/ fax [phone] 12-28-10 faxed home monitorpapers per patient request to [facility] Patient Notified: Yes (Tonja Penay) Result reviewed by: Citlali Wolfe Supervising provider name: Eriberto Carrasquillo Specimen Performing Organization Address City/State/Zipcode Ph one Number [facility] documented in this encounter Visit Diagnoses Not on filedocumented in this encounter
--- OUTSIDE RECORDS SUMMARY | 2019-08-08 14:08 | XMS REPORT | Encounter Summary ---
Author Author [facility] Organization [facility] Address Unknown Phone Unavailable Care Team Providers Care Citrus Picker Name Role Phone ColumbusSydni head PCP Encounter Details Care Team Description Date Type Department Reid Stock MD [address] [facility] [address] [place] [address] [phone] 11/09/2010 [facility] Visit Social History Date [...]
--- OUTSIDE RECORDS SUMMARY | 2019-08-08 14:08 | XMS REPORT | Encounter Summary ---
Author Author [facility] Organization [facility] Address Unknown Phone Unavailable Care Team Providers Care Gypsum Roofer Name Role Phone Sydni Russell PCP Encounter Details Care Team Description [place] [address] [facility] [address] [place] [address] [phone] 01/12/2011 [facility] Visit Social [...] Date/Time Associated Diag nosis PROTHROMBIN TIME/INR Routine 01/12/2011 2:33 PM CDT documented in this encounter Results * Prothrombin Time/INR (01/12/2011 2:33 PM CDT) INR 1.56 [facility] Comment: Lab Date: 20110112 Date Coumadin/warfarin started: 20100910 Location where INR performed: Lab Lab name and contact information: Dr. Proctor([facility]), [id number], [phone] Patient Status: Diagnosis 1: Atrial fibrillation [facility] Diagnosis 2: Target INR Range: 2.0-3.0 Next Lab due: 20110119 Pending Procedure: NA Patient Instructions(comments): pt has been taking 2.5mg daily and an occ. 5mg and the dentist spoke with O.......lets try 5mg tonight then 3mg daily...spoke with Sydni Comments (General Comments) : CALL Sydni with results. [phone]. 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 [facility]ney office [phone]/ fax [phone] 12-28-10 faxed home monitorpapers per patient request to [facility] test 1-4x mthly/sd Patient Notified: Yes (Tonja Nice) Result reviewed by: Stacy Jaquez Supervising provider name: Eriberto Carrasquillo Specimen Performing Organization Address City/State/Zipcode Ph one Number [facility] documented in this encounter Visit Diagnoses Not on filedocumented in this encounter
--- OUTSIDE RECORDS SUMMARY | 2019-08-08 14:08 | XMS REPORT | Encounter Summary ---
Author Author [facility] Organization [facility] Address Unknown Phone Unavailable Care Team Providers Care Environmental Science Professor Name Role Phone Sydni Russell PCP Encounter Details Care Team Description Date Type Department [facility] Provider, MD Lars 02/10/2011 [facility] - Hist [facility] [...] Date/Time Associated Diag nosis PROTHROMBIN TIME/INR Routine 02/10/2011 2:01 PM CDT documented in this encounter Results * Prothrombin Time/INR (02/10/2011 2:01 PM CDT) INR 2.80 [facility] Comment: Lab Date: 20110210 Date Coumadin/warfarin started: 20100910 Location where INR performed: Lab Lab name and contact information: Dr. Proctor([facility]), [id number], [phone] Patient Status: Diagnosis 1: Atrial fibrillation [facility] Diagnosis 2: Target INR Range: 2.0-3.0 Next Lab due: 20110217 Pending Procedure: NA Patient Instructions(comments): pt dtr states he has been taking 3.5mg daily ck in 1 wk......spoke with dtr ph Comments (General Comments) : CALL Sydni with results. [phone]. 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 Barney office [phone]/ fax [phone] 12-28-10 faxed home monitorpapers per patient request to [facility] test 1-4x mthly/sd Patient Notified: Yes (Tonja Nice) Result reviewed by: Stacy Jaquez Supervising provider name: Wander Gayle Specimen Performing Organization Address City/State/Zipcode Ph one Number [facility] documented in this encounter Visit Diagnoses Not on filedocumented in this encounter
--- OUTSIDE RECORDS SUMMARY | 2019-08-08 14:08 | XMS REPORT | Encounter Summary ---
Author Author [facility] Organization [facility] Address Unknown Phone Unavailable Care Team Providers Care Plumbing And Heating Mechanic Name Role Phone Sydni Russell PCP Encounter Details Care Team Description Date Type Department [facility] Provider, MD Lars 11/09/2010 [facility] - Hist [facility] HISTORIC CLINI [...] Date/Time Associated Diag nosis PROTHROMBIN TIME/INR Routine 11/05/2010 9:04 AM CDT documented in this encounter Results * Prothrombin Time/INR (11/05/2010 9:04 AM CDT) INR 1.59 [facility] Comment: Lab Date: [id number] Date Coumadin/warfarin started: 20100910 Location where INR performed: Lab Lab name and contact information: Dr. Proctor([facility]), [id number], [phone] Patient Status: Diagnosis 1: Atrial fibrillation [facility] Diagnosis 2: Target INR Range: 2.0-3.0 Next Lab due: 20101111 Pending Procedure: NA Patient Instructions(comments): take 7.5mg tonight then cont 5mg daily and recheck in 1 wk. cjj---patient daughter Sydni notified and voiced understanding. [facility] Comments (General Comments) : CALL Sydni with results. [phone]. 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 Barney office [phone]/ fax [phone] Patient Notified: Yes (Citlali Wolfe) Result reviewed by: Citlali Wolfe Supervising provider name: Eriberto Carrasquillo Specimen Performing Organization Address City/State/Zipcode Ph one Number [facility] documented in this encounter Visit Diagnoses Not on filedocumented in this encounter
--- OUTSIDE RECORDS SUMMARY | 2019-08-08 14:08 | XMS REPORT | Encounter Summary ---
Author Author [facility] Organization [facility] Address Unknown Phone Unavailable Care Team Providers Care Insurance Claims Processor Name Role Phone PCP Unavailable Encounter Details Care Team Description Date Type Department Joan Cornejo MD [address] [facility] [address] [place] [address] [phone] Occlusion and stenosis of carotid artery without mention of cerebral infarction 10/28/2010 [facility] - Encounter 10/30/2010 Social History Date Tobacco Use Types Packs/Day Years Used Never Assessed Sex Assigned at Date Recorded Not on file Industry Job Start Date Occupation Not on file Not on file Not on file Travel End Travel History Travel Start No recent travel history available. documented as of this encounter Discharge Summaries * Wander Cornejo MD - 08/04/2013 1:35 AM ACCOUNTS PAYABLE TECHNICIAN REPORT Name: TENISHA RUSSELL Date of : 1935 Attending Physician: Joan CORNEJO Date of Admission: 10/28/2010 Date of Discharge: 10/30/[address] Welch, Today I had the pleasure of discharging your patient Mr. Tenisha Russell from the [facility] following his right carotid endarterectomy performed 10/29/[address] Wander Cornejo. As you know, Mr. Russell is a 75-year-old gentleman who had been being followed at your office for history of coronary disease with stent placement to the LAD and right coronary in 2002. Most recently he had developed some palpitations and was found to be in atrial fibrillation. He had had known carotid disease and a CTA of the carotids recently showed extensive bilateral soft and hard plaques at the carotid bifurcation. The most serious lesion was an 80% narrowing in the proximal right internal carotid artery. Up to this point he had declined carotid endarterectomy however he did present to Dr. Cornejo for evaluation. He had remained asymptomatic prior to surgery. Postoperatively Mr. Russell has done quite well. His incision is well healed and well approximated with minimal swelling, no drainage is noted. He is able to swallow and breathe without difficulties. He is getting good pain control currently with Tylenol therapy. He will be discharged today to home care. We have asked him to resume his Coumadin at his normal home dose for atrial fibrillation and have this checked after the holiday weekend for continued INR management. DISMISSAL MEDICATIONS: 1. Bystolic 5 mg daily. 2. Coumadin 5 mg daily. 3. Aspirin 81 mg daily. 4. Lortab 5/500 1 to 2 every 4 to 6 hours as needed for pain. DISMISSAL DIAGNOSES: 1. Carotid disease. 2. Dyslipidemia. 3. Coronary artery disease. 4. Hypertension. 5. Chronic atrial fibrillation on Coumadin therapy. PLAN: 1. Mr. Russell will be discharged to home care today. 2. We have asked him to follow up with Dr. Cornejo in the next 4 to 6 weeks and our office will be contacting him regarding this appointment. 3. We have asked him to follow up with his primary care in the next 1 to 2 weeks and with you in one month for continued cardiovascular management. We appreciate the opportunity to participate in the care of Mr. Tenisha Russell. If you should have any questions or concerns please do not hesitate to contact our office at [phone]. A. Wander Cornejo MD Dictated By: Albina Hartman RN, ANP cc: MD Reid Ya Jr, MD UNTS PAYABLE TECHNICIAN documented in this encounter Medications at Time of Discharge Start Date End Date Medication Sig Dispensed Refills 08/04/2010 01/08/2015 aspirin 81 MG chewable take [...] (PRINZIDE,ZESTORETIC) every day 10-12.5 mg per tablet 08/04/2010 01/08/2015 nebivolol (BYSTOLIC) 5 MG take 1 tablet 30 11 tablet (5MG) by oral route every day documented as of this encounter H&P Notes * Wander Cornejo MD - 08/04/2013 1:36 AM ACCOUNTS PAYABLE TECHNICIAN REPORT Name: TENISHA RUSSELL Date of : 1935 Attending Physician: Joan CORNEJO DATE OF ADMISSION: 10/28/2010 PRIMARY CARE PHYSICIAN: Fátima Montana MD REFERRING SLURRY PLANT OPERATOR: Reid Welch Jr, MD CHIEF COMPLAINT: Carotid stenosis. HISTORY OF PRESENT ILLNESS: Mr Russell is a 75-year-old male who was seen in consultation by Dr Cornejo on September 22, 2010, for his carotid stenosis. 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 He has been followed by [facility] for history of coronary artery disease with stent placement to the LAD and right coronary artery in 2002. More recently he developed heart palpitations and was found to be in atrial fibrillation. He currently is not on any anticoagulation therapy other than 81 mg aspirin daily. His last Coumadin dose was on Sunday, October 24, 2010. He normally takes 5 mg of Coumadin daily and this medication is managed by [facility]. Mr Russell has been noted to have asymptomatic bilateral carotid disease. A CTA of the carotids recently showed extensive bilateral soft and hard plaques at the carotid bifurcation. The most serious lesion was an 80% narrowing in the proximal right internal carotid artery. Up this point. Mr Russell has declined carotid endarterectomy. Clinically, Mr Russell is asymptomatic. He denies chest pain, shortness of breath, PND, orthopnea, dyspnea on exertion, edema, syncope, and presyncope. He has had no CVA or TIA, visual disturbance, weakness, numbness, tingling, or difficulty with speech. Today Mr Russell had a cerebral angiogram. This showed a right ICA essentially occluded with only trace contrast past the origin noted to be at the string sign with no antegrade flow in intracranial vessel from the right ICA. The left ICA was heavily calcified plaque, but only 40% stenosis. There was no stenosis of either vertebral artery. Collateral flow to the right MCA and right SHAE via ACom and PCom. The cerebral angiogram as performed by Dr Lima. These results were relayed to Dr Cornejo and it was decided that Mr Russell will undergo a right carotid endarterectomy tomorrow, October 29, 2010, by Dr Wander Cornejo. The patient states that he would like to proceed with this surgical option. PAST SURGICAL HISTORY: 1. Parathyroidectomy in 2001. 2. Tonsillectomy adenoidectomy in the remote past. 3. PCI/stent to the LAD and right coronary artery in 2002. PAST MEDICAL HISTORY: 1. Atrial fibrillation. His CHADS score is 2. Mr Russell takes Coumadin which is managed by [facility] and his last dose of 5 mg was Sunday October 24, 2010. 2. Coronary artery disease. 3. Carotid stenosis, right is greater than left. 4. Dyslipidemia. Mr Russell continues to decline and statin medication. 5. Hypertension. CURRENT MEDICATIONS: 1. Aspirin 81 mg p.o. daily. 2. Bystolic 5 mg p.o. daily. ALLERGIES: HE HAS NO KNOWN DRUG ALLERGIES. HE DENIES ANY ALLERGY TO LATEX OR IV CONTRAST DYE. FAMILY HISTORY: Mother at the age of 74 from coronary artery disease and his father's and age at the time of is unknown. PERSONAL HISTORY: Mr Russell has been for 50 years and has 3 children. He denies any tobacco or illicit drug use. He drinks approximately 1 alcoholic beverage per week. REVIEW OF SYSTEMS: CONSTITUTIONAL: The patient denies fever, chills, weight loss or gain, fatigue or weakness. INTEGUMENTARY: The patient denies rash, pruritus, bruisability. HEENT: Patient wears glasses. He has some hearing loss. He also has cataracts. He denies any difficulty swallowing or with epistaxis. RESPIRATORY: The patient denies cough, sputum production, shortness of breath, hemoptysis. CARDIOVASCULAR: The patient denies angina or syncope. He is positive for hypertension. The patient currently has atrial fibrillation, which he does feel heart palpitations from time to time. He denies any dyspnea on exertion or paroxysmal nocturnal dyspnea, orthopnea, or pedal edema. GASTROINTESTINAL: Patient's appetite and digestion are good. He denies any hematemesis, hematochezia, or melena. GENITOURINARY: The patient has nocturia x1. No frequency or dysuria. He has been seen by a urologist for his prostate, which he reports has been somewhat firm in the past, however, he does not take any benign prostatic hypertrophy medication. MUSCULOSKELETAL: The patient denies arthritis or claudication symptoms. He does not use any assist devices. NEUROLOGIC: Patient denies strokes, seizures, headaches, or dizziness. ENDOCRINE: Patient denies diabetes or thyroid abnormality. HEMATOLOGIC: The patient denies anemia, easy bruisability, or bleeding tendencies. PHYSICAL EXAMINATION: Mr Russell is 5 feet 8 inches tall. His stated weight is 157 pounds. He is a well-developed thin male in no acute distress, resting in his hospital bed. VITAL SIGNS: Temperature 97.5, pulse 86, respiratory rate 11, blood pressure 113/74, oxygen saturation 99% on room air. SKIN: Warm and dry. No masses or lesions are present. HEENT: Pupils are equal, round, and reactive to light and accommodation. EOMs are full. Conjunctivae pink. Mr Russell does have an upper denture plate. NECK: Supple. Trachea is midline. There is no JVD, bruit, or adenopathy appreciated. Carotid upstroke is normal. RESPIRATORY: Lung sounds are clear to auscultation. Ventilations are symmetric. CARDIOVASCULAR: Heart tones are irregularly irregular. The patient is currently in atrial fibrillation. ABDOMEN: Soft, nontender, nondistended. Bowel sounds are present. EXTREMITIES: The patient has full range of motion without deformity. Strength and tone are intact. There is no pedal edema. Dorsalis pedis and posterior tibial pulses are palpable. There is no cyanosis or clubbing. NEUROLOGICAL: Mr Russell is alert and oriented x3. Cranial nerves II through XII are intact. Appointment Coordinator are equal. Patient has a normal affect. LABORATORY: Pending at the time of this dictation. IMPRESSION: 1. Bilateral carotid stenosis. The right is greater than left. 2. Hypertension. 3. Dyslipidemia. 4. Atrial fibrillation. 5. Coronary artery disease with a history of percutaneous coronary intervention/stent to the left anterior descending (LAD) and right coronary artery (RCA). PLAN: Our plan for this patient is that he will be prepared for a right carotid endarterectomy to be performed by Dr Wander Cornejo on October 29, 2010. Mr Russell and his daughter feel that they have had the risks and benefits of this surgical procedure explained to them at length by Dr Cornejo and they feel comfortable proceeding with surgery as planned. We thank you for the opportunity to participate in Mr Russell's care, and we will continue to follow along and finalize surgical plans as indicated. A. Wander Cornejo MD Dictated By: Cc: [facility] MD Reid Ya Jr, MD UNTS PAYABLE TECHNICIAN documented in this encounter Procedure Notes * Ольга Fox MD - 08/04/2013 1:35 AM ACCOUNTS PAYABLE TECHNICIAN Associated Order(s): EEG ROUTINE (UP TO 40 MIN) REPORT Name: TENISHA RUSSELL Date of : 1935 Attending Physician: Joan CORNEJO Date of Admission: 10/28/2010 INTRAOPERATIVE MONITORING NUMBER [id number] DATE OF PROCEDURE: 10/29/2010 INDICATION: Patient with carotid endarterectomy. A 20-channel EEG recording with electrocardiogram monitoring was performed in the preoperative baseline state and intraoperatively during a right carotid endarterectomy. At the outset of the recording, the patient had symmetric fast background activity. After induction of anesthesia appropriate physiologic changes were seen with attenuation and slowing of the background rhythm. There were some burst type and suppression identified. After crossclamping of the carotid artery, no changes were seen in the background electrographic rhythm. After scientology of flow, no changes were seen. The total clamp time was 21 minutes. The EEG was discontinued prior to reversal of anesthesia. INTERPRETATION: This is an uneventful preoperative baseline and intraoperative monitoring EEG during a right carotid endarterectomy. Ольга Fox MD Dictated By: cc: UNTS PAYABLE TECHNICIAN documented in this encounter Miscellaneous Notes * Operative Note - Wander Cornejo MD - 08/04/2013 1:33 AM ACCOUNTS PAYABLE TECHNICIAN REPORT Name: TENISHA RUSSELL Date of : 1935 Attending Physician: Joan CORNEJO DATE OF OPERATION: 10/29/2010 PREOPERATIVE DIAGNOSIS: Severe right carotid artery stenosis. POSTOPERATIVE DIAGNOSIS: Severe right carotid artery stenosis. OPERATION PERFORMED: Right carotid endarterectomy. SURGEON: Yo Cornejo MD COOK CANDY: Maira Gregorio PA-C ANESTHESIA: General. INCISION: Right para-sternocleidomastoid. DRAINS: Patsy. CULTURE: None. SPECIMEN: Endarterectomy. CLOSURE: Routine. DESCRIPTION OF PROCEDURE: After satisfactory induction of general endotracheal anesthesia, the skin of the right neck was prepped and draped in a standard sterile fashion. A 4 cm right para-sternocleidomastoid incision was made and carried down to the platysma. Facial vein was divided and the hypoglossal and vagus nerves identified and preserved. The common carotid and its branches were identified. Heparin was administered. The superior thyroid artery was encircled with 2-0 silk and placed on tension. The common and external carotid arteries were occluded. As a string sign was present on the arteriogram, internal carotid artery stump pressure was not measured. No EEG changes were noted with occlusion of the carotid artery. Internal carotid artery was opened. There was backbleeding noted. No thrombus was present. An arteriotomy was made in the common carotid artery and extended into the internal vessel with internal carotid artery vessel which had been gently occluded with a vascular clamp. A complete endarterectomy was carried out. The distal intima was then tacked with a running 7-0 Prolene suture. The vessel was then reapproximated with Hemashield graft utilizing 6-0 Prolene suture. The common and internal carotid arteries were flushed before the suture line was completed. A strong pulse and audible Doppler signal were present in the internal carotid artery once completed. Protamine was then administered to counteract the heparin. Hemostasis was present. Wounds closed in routine fashion. Dry sterile dressings were applied. Sponge and needle counts were reported correct. The patient was taken to the recovery room in stable and neurologically intact condition. A. Wander Cornejo MD Dictated By: cc: UNTS PAYABLE TECHNICIAN documented in this encounter Plan of Treatment Not on filedocumented as of this encounter Procedures Comments Procedure Name Priority Date/Time Associated Diag nosis EEG ROUTINE (UP TO 40 10/29/2010 MIN) 9:32 PM CDT GLUCOSE POINT OF CARE Routine 10/29/2010 5:29 PM CDT GLUCOSE POINT OF CARE Routine 10/29/2010 1:10 PM CDT LYTES//HGB/CA POC Routine 10/29/2010 1:07 PM CDT ARTERIAL BLOOD GAS POC + Routine 10/29/2010 COOX A 1:07 PM CDT RETYPE PATIENT ABORH Routine 10/29/2010 8:05 AM CDT [place] HISTOLOGY Routine 10/29/2010 12:00 AM CDT XR CHEST 2 VIEWS (PA AND Routine 10/28/2010 LATERAL) 9:40 PM CDT URINE NITRITE Routine 10/28/2010 8:45 PM CDT URINALYSIS (INCLUDES Routine 10/28/2010 MICROSCOPIC REVIEW, IF 8:45 PM CDT INDICATED) RBCS 2 UNITS Routine 10/28/2010 4:11 PM CDT IR CEREBRAL ARTERIOGRAM Routine 10/28/2010 11:45 AM CDT COMPLETE BLOOD COUNT Routine 10/28/2010 9:46 AM CDT BASIC METABOLIC PANEL Routine 10/28/2010 9:46 AM CDT ANTIBODY SCREEN Routine 10/28/2010 9:45 AM CDT PLATELET Routine 10/28/2010 9:45 AM CDT HEMOGLOBIN A1C Routine 10/28/2010 9:45 AM CDT CREATININE Routine 10/28/2010 9:45 AM CDT COAGULATION SCREEN Routine 10/28/2010 9:45 AM CDT ALANINE AMINOTRANSFERASE Routine 10/28/2010 9:45 AM CDT ABORH TYPE Routine 10/28/2010 9:45 AM CDT documented in this encounter Results * EEG ROUTINE (UP TO 40 MIN) (10/29/2010 9:32 PM CDT) Specimen Transcriptions Ольга Fox MD - 08/04/2013 1:35 AM ACCOUNTS PAYABLE TECHNICIAN REPORT Name: TENISHA RUSSELL Date of : 1935 Attending Physician: Joan CORNEJO Date of Admission: 10/28/2010 INTRAOPERATIVE MONITORING NUMBER [id number] DATE OF PROCEDURE: 10/29/2010 INDICATION: Patient with carotid endarterectomy. A 20-channel EEG recording with electrocardiogram monitoring was performed in the preoperative baseline state and intraoperatively during a right carotid endarterectomy. At the outset of the recording, the patient had symmetric fast background activity. After induction of anesthesia appropriate physiologic changes were seen with attenuation and slowing of the background rhythm. There were some burst type and suppression identified. After crossclamping of the carotid artery, no changes were seen in the background electrographic rhythm. After scientology of flow, no changes were seen. The total clamp time was 21 minutes. The EEG was discontinued prior to reversal of anesthesia. INTERPRETATION: This is an uneventful preoperative baseline and intraoperative monitoring EEG during a right carotid endarterectomy. Ольга Fox MD Dictated By: cc: * Glucose Point of Care (10/29/2010 5:29 PM CDT) Only the most recent of 2 results within the time period is included. Glucose 121 (H) 65 - 100 MG/DL [facility] Specimen Blood Performing Organization Address City/State/[facility] one Number [facility]RL [address] [place], [place] [address] SUN[facility] * Arterial Blood Gas POC + Coox A (10/29/2010 1:07 PM CDT) pH Arterial 7.35 7.35 - 7.45 UNITS [facility] pCO2 Arterial 46 (H) 35 - 45 MM HG [facility] PO2 Arterial 61 (L) 71 - 100 MM HG [facility] Base Excess -0.7 -3.0 - 3.0 MEQ/L [facility] Bicarbonate 24.7 19.0 - 29.0 MEQ/L [facility] Hemoglobin 13.6 13.0 - 17.0 G/DL [facility] Whole Blood Oxyhemoglobin 91.0 (L) 95.0 - 100.0 % THB [facility] Carboxyhemoglob 0.5 0.0 - 1.5 % THB [facility] in Methemoglobin 0.9 0.0 - 1.5 % THB [facility] O2 Content 17.4 17.0 - 999.0 ML/DL [facility] Arterial Sample Site Arterial [facility] Mode SV [facility] Specimen Arterial Performing Organization Address [facility] Ph one Number [facility] [address] [place] [phone] SUNQUEST * Lytes//HGB/CA POC (10/29/2010 1:07 PM CDT) Ionized Calcium 4.6 4.5 - 5.3 MG/DL [facility] Sodium 141 134 - 144 MEQ/L [facility] Potassium 4.4 3.5 - 5.2 MEQ/L [facility] Hemoglobin 13.6 13.0 - 17.0 G/DL [facility] Specimen Blood Performing Organization Address [facility] Ph one Number [facility] [address] [place] [phone] SUNQUEST * Retype Patient ABORH (10/29/2010 8:05 AM CDT) ABORH Type B Positive [facility] Confirm Blood Yes [facility] Type Specimen Blood Performing Organization Address [facility] one Number RL [address] [place] [phone] [facility]QUEST * Pathology (10/29/2010 12:00 AM CDT) Specimen Narrative Performed At REPORT [facility] PATIENT: TENISHA RUSSELL SEX / : M 1935 (Age: 75) 353 VISIT: [id number] SUBMITTING PHYSICIAN: Yo durham M.D. CLIENT: [facility] COLLECTED: 10/29/2010 REPORTED: 11/03/2010 SURGICAL PATHOLOGY REPORT COPATH SPECIMEN: Right carotid artery plaque FINAL PATHOLOGIC DIAGNOSIS: Right carotid artery - Calcific atheros clerotic plaque. Signed Electronically by: Isaiah Salemron M.D. 11/03/2010 CLINICAL DATA: Right carotid stenosis GROSS DESCRIPTION: Received in formalin in a properly labe led container is a 2.3 cm in length by 1.3 cm in outside d iameter disrupted davies rubbery to firm bifurcated portion of t issue. Upon section the lumen is greater than 95% stenosed by off white to pale yellow to brown partially calcified victor manuel que. Restaurant And Bar Manager sections are submitted in one cassette following decalcification. DA/nmw Gross performed at [facility] Gross Room, [address] [place] [id number]. Grant: [facility], [address] [place] [id number] Performing Laboratory Location: [facility], Dept of Path ology, Dr Ej Salmeron, Art Critic, [address] [place] [address] Technical processing at: [facility] [place] [facility] Wander Pisano, [employer] [id number] [place] [address] END OF REPORT Performing Organization Address City/State/Zipcode Ph one Number [facility]RL [address] [place] [address] SUNQUEST * XR Chest 2 views (PA and lateral) (10/28/2010 9:40 PM CDT) Specimen Narrative Performed At REPORT NAKIA Patient: TENISHA RUSSELL Phone #: Med Rec#: [id number] Sex: M : 1935 Judy#: [id number] Location: [facility] CV 15 Check-in#: [id number] Procedure Requested: [id number] DX CHEST 2 V IEWS Reason For Exam: PRE OP EVAL Exam Ordered: 10/28/2010 161 2 Exam Date/Time: 10/28/20102144 Check-in Date/Time: 10/28/2010 1614 Attendin Joan CORNEJO Requestin Joan CORNEJO Referrin NO, REFERRING Primary Care: [id number] FÁTIMA MONTANA MD DX CHEST 2 VIEWS INDICATION: Preoperative elevation. COMPARISON STUDY: None. FINDINGS: Lungs: Normal lung volume. No focal air space disease. The tracheobronchial tree and hilar structu res are normal. Pleura: No pleural effusion or pneumoth orax. Heart and Mediastinum: The cardiomedias tinal silhouette is normal. The great vessels of the thorax are normal. Bones: Multilevel degenerative changes of the thoracic spine. IMPRESSION: No acute cardiopulmonary process. ATTESTATION STATEMENT: The Staff Radiologist has personally re viewed the images and dictated, reviewed, or edited the final report. Signed (Authenticated, Released) Date-T eusebio: 10/29/2010 1331 Curb Supervisor- DIAMOND GALLEGOS M.D., Staff Radiologist Dictated By- TITO HIGGINS M.D., Resid ent Staff Physician- DIAMOND GALLEGOS M.D., Staff Radiologist Authenticated By- DIAMOND GALLEGOS M.D., Staff Radiologist Procedure Note Interface, Rad Conversion - 08/04/2013 2:40 PM ACCOUNTS PAYABLE TECHNICIAN REPORT Patient: TENISHA RUSSELL Phone #: Med Rec#: [id number] Sex: M : 1935 Judy#: [id number] Location: [facility] CV 15 Check-in#: [id number] Procedure Requested: [id number] DX CHEST 2 VIEWS Reason For Exam: PRE OP EVAL Exam Ordered: 10/28/2010 1612 Exam Date/Time: 10/28/20102144 Check-in Date/Time: 10/28/20101613 AttendinJoan ORELLANA Requestin Joan CORNEJO Referrin IBIS REFERRING Primary Care: [id number] FÁTIMA MONTANA MD DX CHEST 2 VIEWS INDICATION: Preoperative elevation. COMPARISON STUDY: None. FINDINGS: Lungs: Normal lung volume. No focal airspace disease. The tracheobronchial tree and hilar structures are normal. Pleura: No pleural effusion or pneumothorax. Heart and Mediastinum: The cardiomediastinal silhouette is normal. The great vessels of the thorax are normal. Bones: Multilevel degenerative changes of the thoracic spine. IMPRESSION: No acute cardiopulmonary process. ATTESTATION STATEMENT: The Staff Radiologist has personally reviewed the images and dictated, reviewed, or edited the final report. Signed (Authenticated, Released) Date-Time: 10/29/2010 1331 Curb Supervisor- DIAMOND GALLEGOS M.D., Staff Radiologist Dictated By- TITO HIGGINS M.D., Resident Staff Physician- DIAMOND GALLEGOS M.D., Staff Radiologist Authenticated By- DIAMOND GALLEGOS M.D., Staff Radiologist Performing Organization Address [facility] Ph one Number [email or web address] * Urine Nitrite (10/28/2010 8:45 PM CDT) Nitrite Urine Negative Negative [facility] Specimen Urine Performing Organization Address [facility] Ph one Number [facility] [address] [place] [phone] SUNQUEST * Urinalysis (10/28/2010 8:45 PM CDT) Appearance, Yellow [facility] Urine Specific >=1.030 1.001 - 1.030 [facility] [place], [facility]A PH Urine 7.0 5.0 - 8.0 [facility] Hemoglobin Negative Negative [facility] Urine Ketones Urine Negative Negative [facility] Glucose Urine Negative Negative [facility] Protein Urine Negative Negative [facility] Qual Leukocyte Negative Negative [facility] Esterase Urobilinogen Negative Negative [facility] Urine Bilirubin Urine Negative Negative [facility] Specimen Urine Performing Organization Address [facility] [place] one Number [id number] [phone] SUNQUEST * RBCs 2 Units (10/28/2010 4:11 PM CDT) 01 - PRODUCT ID Red Blood Cells SUNQUEST 01 - UNIT [id number] SUNQUEST NUMBER 01 - CROSS Compatible SUNQUEST MATCH 01 - STATUS Canceled SUNQUEST INFO 01 - PRODUCT [id number] SUNQUEST CODE 01 - BLOOD TYPE B Pos SUNQUEST 02 - PRODUCT ID Red Blood Cells SUNQUEST 02 - UNIT [id number] SUNQUEST NUMBER 02 - CROSS Compatible SUNQUEST MATCH 02 - STATUS Canceled SUNQUEST INFO 02 - PRODUCT [id number] SUNQUEST CODE 02 - BLOOD TYPE B Pos SUNQUEST Specimen Blood Performing Organization Address [facility] [place]/[facility] [place] Ph one Number [id number] [phone] SUNQUEST * IR Cerebral Arteriogram (10/28/2010 11:45 AM CDT) Specimen Narrative Performed At [facility] Patient: TENISHA RUSSELL Phone #: [facility] Rec#: [id number] Sex: M : 1935 Judy#: [id number] Location: [facility] 19 Check-in#: [id number] Procedure Requested: [id number] IR CEREBRAL ARTERIOGRAM Reason For Exam: CAROTID STENOSIS Exam Ordered: 10/28/2010 112 9 Exam Date/Time: 10/28/2010 1245 Check-in Date/Time: 10/28/2010 1130 Attendin Joan CORNEJO Requestin Joan CORNEJO Referrin IBIS, REFERRING DR Primary Care: [id number] FÁTIMA MONTANA MD CEREBRAL ANGIOGRAM ( aortic arch, right common carotid, right subclavian, left subclavian, left verte bral, and left common carotid arteries ) DATE: October 28, 2010 11:30:00 AM HISTORY: 75-year-old with right and lef t internal carotid artery disease based on CT angiogram. He's here for a diagnostic cerebral angiogram prior to potential carotid endarterecto my. PHYSICIANS: Dr. Krystian Lima ([facility]) CONTRAST: 120 mL Omnipaque 300 FLUORO TIME: Six minutes PROCEDURE: Informed consent was obtaine d from the patient by Dr. Lima prior to transport to the [facility] neuroangiography suite . Risks discussed included stroke, transi ent neurologic deficit (TIA), vascular injury, allergic reaction, d ecreased renal function and renal failure, pain, bleeding, and infection. The patient gave both verbal and written consent to proceed. Prior t o beginning the procedure, a "time out" was performed to confirm the patient's identity and the planned procedure. Conscious sedation was subsequently ini tiated with intravenous fentanyl and versed for 45 minutes during contin uous cardiorespiratory monitoring. The patient was monitored b y a nurse certified in monitoring patients undergoing conscious sedation. The right groin was prepped and draped in the usual sterile fashion with Chloraprep. Next, the right femo ral head was localized fluoroscopically and buffered 1% lidoca ine was injected for local anesthesia. The common femoral artery was then accessed with a 21guage micropuncture needle and a microwire wa s advanced intrarterially and its position confirmed under fluoroscopy. T he needle was exchanged for a 4 pakistani dilator over the microwire. Then the inner dilator and microwire were removed. A J wire was inserted and a 4 Eritrean sheath advanced over a J-wire. The sheath was connected to a regulated, pressurized infusion of heparinized saline. A 4 Eritrean pigtail catheter was advance d over the wire and positioned in the ascending aorta, and a mechanical i njection of Omnipaque contrast was performed for imaging of the arch a nd brachiocephalic vessels in the DIVEHI and KUMAR projections. The pigtail ca theter was exchanged over a J-wire for an vertebral catheter. The 4F vertebral catheter was advanced to the descending thoracic aorta and the J-wire was exchanged for a road runner wire. Utilizing the combination of the vertebral catheter w ith a road runner wire, the right common carotid, right subclavian, left subclavian, and left vertebral arteries were sequentially cannulated f or selective mechanical contrast injection and imaging of both the cervi gino and cranial vessels in multiple projections. The vertebral c atheter was exchanged over a J-wire for a 4 Eritrean Hernandez 2 cathete r. The Hernandez 2 catheter was used with a Roadrunner wire to select t he left subclavian artery, where it was formed, and then used to select the left common carotid artery for hand and mechanical contrast inject ion and imaging of the cervical and cranial vessels in multiple project ions. At the conclusion of the study, the wir e, catheter, and sheath were removed. Satisfactory hemostasis at the puncture site was achieved with a mechanical clamp and then manual comp ression. There were no immediate complications. The patient was transported to the cardiovascular recovery unit in sta ble condition. FINDINGS: CHEST AND NECK: Aortic arch: Aortic arch, right brachio cephalic, and proximal common carotid arteries are tortuous but show no stenoses. Specifically, there is no stenosis of either subclavi an artery origin, either common carotid origin, or of either vertebral artery origins seen. Right carotid bifurcation: The bifurcat ion lies at the C3-C4 level and there is extensive atherosclerotic plaq ue and only minimal antegrade flow in the lower cervical right ICA se en. There is near occlusion (greater than 98% stenosis) of the righ t ICA origin with a string sign present. Left carotid bifurcation: The bifurcati on lies at the C3-C4 level and there is atherosclerotic plaque at the left ICA origin. There is 40 percent stenosis of the left internal c arotid based on NASCET criteria. Right subclavian injections: The right vertebral artery fills antegrade. The right vertebral has no stenosis at its origin. The cervical right vertebral artery is tortuous but nonste notic. Left subclavian injections: The left ve rtebral artery fills antegrade. The left vertebral has no stenosis at i ts origin. The vertebral artery is tortuous, CRANIAL VESSELS: Right carotid injections: There is an tegrade filling of the external carotid branches, but only minimal cont rast seen in the Starr and cavernous right ICA. No flow in the rig ht anterior and middle cerebral arteries or their branches is seen. No filling of the ICA terminus is present. Left carotid injections: The distal l eft internal carotid artery is normal.There is normal filling of the l eft anterior and middle cerebral arteries and their branches. The left p osterior communicating artery is patent. The anterior communicating sage ry is opacified from [id number]. Right subclavian artery injections: The re is antegrade filling of the distal right vertebral artery, both pos terior cerebral artery branches, and the right posterior communicating a rtery. There is opacification of the right MCA territory seen during thi s injection. Left vertebral artery injections: Anteg rade filling of the distal left vertebral artery, basilar, and both pos terior cerebral arteries is seen. There is opacification of the right MCA territory again from posterior communicating artery collaterals. No cerebral aneurysm or intracranial ab normality is demonstrated. ATTENDING PHYSICIAN STATEMENT: Dr. Ryan Lima, the attending neurointerventional radiologist, was pr esent for the entire procedure. Dr. Lima personally reviewed and in terpreted all the images for the examination and has dictated or edited the final report. OPINION: 1. A near occlusion of the right program management intern al carotid artery at its origin due to a 99% stenosis with a "string si gn". There is only minimal antegrade filling of the cervical right ICA seen with no filling of the intracranial ICA , MCA or SHAE during th e right common carotid injections. 2. A 40% stenosis of the left ICA origi n due to focal atherosclerotic plaque. 3. No stenosis of either vertebral sage ry origin. 4. The right MCA and right SHAE territor ies are supplied from anterior communicating artery and posterior comm unicating artery collaterals. ATTESTATION STATEMENT: The Staff Radiologist has personally re viewed the images and dictated, reviewed, or edited the final report. Signed (Authenticated, Released) Date-T eusebio: 10/30/2010 1615 Curb Supervisor- KRYSTIAN LIMA M.D., Staff Radiologist Dictated By- KRYSTIAN LIMA M.D., Staff Radiologist Staff Physician- KRYSTIAN Arreaga, Staff Radiologist Authenticated By- KRYSTIAN LIMA M.D., Staff Radiologist Procedure Note Interface, Rad Conversion - 08/04/2013 2:38 PM ACCOUNTS PAYABLE TECHNICIAN REPORT Patient: TENISHA RUSSELL Phone #: [facility] Rec#: [id number] Sex: M : 1935 Judy#: [id number] Location: [facility] 19 Check-in#: [id number] Procedure Requested: [id number] IR CEREBRAL ARTERIOGRAM Reason For Exam: CAROTID STENOSIS Exam Ordered: 10/28/2010 1129 Exam Date/Time: 10/28/2010 1245 Check-in Date/Time: 10/28/2010 1130 AttendinJoan ORELLANA Requestin Joan CORNEJO Referrin IBIS REFERRING Primary Care: [id number] FÁTIMA MONTANA MD CEREBRAL ANGIOGRAM ( aortic arch, right common carotid, right subclavian, left subclavian, left vertebral, and left common carotid arteries ) DATE: October 28, 2010 11:30:00 AM HISTORY: 75-year-old with right and left internal carotid artery disease based on CT angiogram. He's here for a diagnostic cerebral angiogram prior to potential carotid endarterectomy. PHYSICIANS: Dr. Krystian Lima (attending) CONTRAST: 120 mL Omnipaque 300 FLUORO TIME: Six minutes PROCEDURE: Informed consent was obtained from the patient by Dr. Lima prior to transport to the [facility] neuroangiography suite . Risks discussed included stroke, transient neurologic deficit (TIA), vascular injury, allergic reaction, decreased renal function and renal failure, pain, bleeding, and infection. The patient gave both verbal and written consent to proceed. Prior to beginning the procedure, a "time out" was performed to confirm the patient's identity and the planned procedure. Conscious sedation was subsequently initiated with intravenous fentanyl and versed for 45 minutes during continuous cardiorespiratory monitoring. The patient was monitored by a nurse certified in monitoring patients undergoing conscious sedation. The right groin was prepped and draped in the usual sterile fashion with Chloraprep. Next, the right femoral head was localized fluoroscopically and buffered 1% lidocaine was injected for local anesthesia. The common femoral artery was then accessed with a 21guage micropuncture needle and a microwire was advanced intrarterially and its position confirmed under fluoroscopy. The needle was exchanged for a 4 pakistani dilator over the microwire. Then the inner dilator and microwire were removed. A J wire was inserted and a 4 Eritrean sheath advanced over a J-wire. The sheath was connected to a regulated, pressurized infusion of heparinized saline. A 4 Eritrean pigtail catheter was advanced over the wire and positioned in the ascending aorta, and a mechanical injection of Omnipaque contrast was performed for imaging of the arch and brachiocephalic vessels in the DIVEHI and KUMAR projections. The pigtail catheter was exchanged over a J-wire for an vertebral catheter. The 4F vertebral catheter was advanced to the descending thoracic aorta and the J-wire was exchanged for a road runner wire. Utilizing the combination of the vertebral catheter with a road runner wire, the right common carotid, right subclavian, left subclavian, and left vertebral arteries were sequentially cannulated for selective mechanical contrast injection and imaging of both the cervical and cranial vessels in multiple projections. The vertebral catheter was exchanged over a J-wire for a 4 Eritrean Hernanedz 2 catheter. The Hernandez 2 catheter was used with a Roadrunner wire to select the left subclavian artery, where it was formed, and then used to select the left common carotid artery for hand and mechanical contrast injection and imaging of the cervical and cranial vessels in multiple projections. At the conclusion of the study, the wire, catheter, and sheath were removed. Satisfactory hemostasis at the puncture site was achieved with a mechanical clamp and then manual compression. There were no immediate complications. The patient was transported to the cardiovascular recovery unit in stable condition. FINDINGS: CHEST AND NECK: Aortic arch: Aortic arch, right brachiocephalic, and proximal common carotid arteries are tortuous but show no stenoses. Specifically, there is no stenosis of either subclavian artery origin, either common carotid origin, or of either vertebral artery origins seen. Right carotid bifurcation: The bifurcation lies at the C3-C4 level and there is extensive atherosclerotic plaque and only minimal antegrade flow in the lower cervical right ICA seen. There is near occlusion (greater than 98% stenosis) of the right ICA origin with a string sign present. Left carotid bifurcation: The bifurcation lies at the C3-C4 level and there is atherosclerotic plaque at the left ICA origin. There is 40 percent stenosis of the left internal carotid based on NASCET criteria. Right subclavian injections: The right vertebral artery fills antegrade. The right vertebral has no stenosis at its origin. The cervical right vertebral artery is tortuous but nonstenotic. Left subclavian injections: The left vertebral artery fills antegrade. The left vertebral has no stenosis at its origin. The vertebral artery is tortuous, CRANIAL VESSELS: Right carotid injections: There is antegrade filling of the external carotid branches, but only minimal contrast seen in the Starr and cavernous right ICA. No flow in the right anterior and middle cerebral arteries or their branches is seen. No filling of the ICA terminus is present. Left carotid injections: The distal left internal carotid artery is normal.There is normal filling of the left anterior and middle cerebral arteries and their branches. The left posterior communicating artery is patent. The anterior communicating artery is opacified from [id number]. Right subclavian artery injections: There is antegrade filling of the distal right vertebral artery, both posterior cerebral artery branches, and the right posterior communicating artery. There is opacification of the right MCA territory seen during this injection. Left vertebral artery injections: Antegrade filling of the distal left vertebral artery, basilar, and both posterior cerebral arteries is seen. There is opacification of the right MCA territory again from posterior communicating artery collaterals. No cerebral aneurysm or intracranial abnormality is demonstrated. ATTENDING PHYSICIAN STATEMENT: Dr. Krystian Lima, the attending neurointerventional radiologist, was present for the entire procedure. Dr. Lima personally reviewed and interpreted all the images for the examination and has dictated or edited the final report. OPINION: 1. A near occlusion of the right interna l carotid artery at its origin due to a 99% stenosis with a "string sign". There is only minimal antegrade filling of the cervical right ICA seen with no filling of the intracranial ICA , MCA or SHAE during the right common carotid injections. 2. A 40% stenosis of the left ICA origin due to focal atherosclerotic plaque. 3. No stenosis of either vertebral arter y origin. 4. The right MCA and right SHAE territori es are supplied from anterior communicating artery and posterior communicating artery collaterals. ATTESTATION STATEMENT: The Staff Radiologist has personally reviewed the images and dictated, reviewed, or edited the final report. Signed (Authenticated, Released) Date-Time: 10/30/2010 1619 Curb Supervisor- KRYSTIAN LIMA M.D., Staff Radiologist Dictated By- KRYSTIAN LIMA M.D., Staff Radiologist Staff Physician- KRYSTIAN LIMA M.D., Staff Radiologist Authenticated By- KRYTSIAN LIMA M.D., Staff Radiologist Performing Organization Address [facility] [place] Ph one Number NAKIA * Complete Blood Count (10/28/2010 9:46 AM CDT) [facility] WBC 6.30 4.00 - 11.00 TH/UL SUNQUEST RBC 4.78 4.31 - 5.84 MIL/UL SUNQUEST Hemoglobin 15.4 13.0 - 17.0 G/DL SUNQUEST Hematocrit 45 40 - 50 % SUNQUEST MCV 93 80 - 99 FL SUNQUEST MCH 32 27 - 34 PG SUNQUEST MCHC 35 32 - 36 % SUNQUEST RDW 13.4 9.0 - 14.5 % SUNQUEST Platelet Count 117 (L) 140 - 400 TH/UL SUNQUEST MPV 10.5 9.4 - 12.3 FL SUNQUEST Specimen Blood Performing Organization Address [facility] one Number [id number], [place] [phone] SUNQUEST * Basic Metabolic Panel (10/28/2010 9:46 AM CDT) Sodium 138 134 - 144 MEQ/L SUNQUEST Potassium 4.6 3.5 - 5.1 MEQ/L SUNQUEST Chloride 103 101 - 111 MEQ/L SUNQUEST Carbon Dioxide 27 23 - 32 MEQ/L SUNQUEST Anion Gap 8 3 - 15 SUNQUEST Creatinine 0.8 0.6 - 1.3 MG/DL SUNQUEST Blood Urea 16 8 - 26 MG/DL SUNQUEST Nitrogen Glucose 95 65 - 100 MG/DL SUNQUEST Calcium 8.7 (L) 8.8 - 10.5 MG/DL SUNQUEST eGFR Male 94 SUNQUEST Non-AA Comment: Chronic Kidney Disease less than 60 mL/min/1.73 sq.m Kidney failure less than 15 mL/min/1.73 sq.m eGFR Male AA 113 SUNQUEST Comment: Chronic Kidney Disease less than 60 mL/min/1.73 sq.m Kidney failure less than 15 mL/min/1.73 sq.m Specimen Blood Performing Organization Address [facility] one Number SLRL [id number] [phone] SUNQUEST * Platelet (10/28/2010 9:45 AM CDT) Platelet Count 117 (L) 140 - 400 TH/UL SUNQUEST Specimen Blood Performing Organization Address [facility] one Number SLRL [id number] [phone] SUNQUEST * Creatinine (10/28/2010 9:45 AM CDT) Creatinine 0.9 0.6 - 1.3 MG/DL SUNQUEST eGFR Male AA 99 SUNQUEST Comment: Chronic Kidney Disease less than 60 mL/min/1.73 sq.m Kidney failure less than 15 mL/min/1.73 sq.m eGFR Male 82 SUNQUEST Non-AA Comment: Chronic Kidney Disease less than 60 mL/min/1.73 sq.m Kidney failure less than 15 mL/min/1.73 sq.m Specimen Blood Performing Organization Address [facility] one Number SLRL [id number] [phone] SUNQUEST * Coagulation Screen (10/28/2010 9:45 AM CDT) Protime 14.5 (H) 11.7 - 14.3 SEC SUNQUEST INR 1.2 (H) 0.9 - 1.1 SUNQUEST APTT 28 22 - 34 SEC SUNQUEST Fibrinogen 344 146 - 390 MG/DL SUNQUEST Assay Specimen Blood Performing Organization Address [facility] one Number [address]RL [id number] [phone] SUNQUEST * Hemoglobin A1C (10/28/2010 9:45 AM CDT) HEMOGLOBIN A1C 5.5 4.0 - 6.0 % SUNQUEST Comment: Non-diabetic: 4.0 - 6.0 % Very Good Control: < 7.0 % Suboptimal Control: 7.1 - 8.0 % Poor Control: >8.0 % Specimen Blood Performing Organization Address [facility] [place] one Number [address]RL [id number] [phone] SUNQUEST * Alanine Aminotransferase (10/28/2010 9:45 AM CDT) Alanine 14 14 - 63 IU/L SUNQUEST Aminotransferas e Specimen Blood Performing Organization Address [facility] [place] one Number [address]RL [id number] [phone] SUNQUEST * ABORH Type (10/28/2010 9:45 AM CDT) ABORH Type B Positive SUNQUEST Specimen Blood Performing Organization Address [facility] one Number [address]RL [id number] [phone] SUNQUEST * Antibody Screen (10/28/2010 9:45 AM CDT) Antibody Screen Negative SUNQUEST Specimen Blood Performing Organization Address [facility] [place] one Number [address]RL [id number] [phone] SUNQUEST documented in this encounter Visit Diagnoses Diagnosis Occlusion and stenosis of carotid arter y without mention of cerebral infarction documented in this encounter
--- OUTSIDE RECORDS SUMMARY | 2019-08-08 14:08 | XMS REPORT | Encounter Summary ---
Author Author [facility] Organization [facility] Address Unknown Phone Unavailable Care Team Providers Care Wall Covering Contractor Name Role Phone Sydni Russell PCP Encounter Details Care Team Description Date Type Department Reid Stock MD [address] [address] 12/15/2010 [facility] Visit Social History [...] Signs Reading Time Taken Comments Vital Sign 112/70 12/15/2010 3:21 PM CDT Blood Pressure 88 12/15/2010 3:21 PM CDT Pulse - - Temperature - - Respiratory Rate - - Oxygen Saturation - - Inhaled Oxygen Concentration 68.5 kg (151 lb) 12/15/2010 3:21 PM CDT normal Weight 172.7 cm (5' 8") 12/15/2010 3:21 PM CDT Height 22.96 12/15/2010 3:21 PM CDT Body Mass Index documented in this encounter Progress Notes * Reid Stock MD - 12/15/2010 2:15 PM CDT [place] [facility] [address] [place] [address] December 15, 2010 Pravin Proctor MD [address] [place] [address] RE: TENISHA RUSSELL : 1935 Chart #: [id number] Visit provider: Reid Welch M.D. Visit location: [place] office Dear Dr. Proctor: I had the pleasure of seeing TENISHA RUSSELL in the office today. He is 75 years of age and presents with the following chief complaint: Atrial fibrillation. HPI: Mr. Tenisha Russell is 75 years of age. He has persistent atrial fibrillation. We have discussed options including transesophageal echocardiogram and electroca rdioversion. He would like to try to take the conservative approach. I think t his is perfectly reasonable as all of the randomized trials have suggested that rate control is as effective as rhythm control for improving prognoses in the se tting of atrial fibrillation. He is on warfarin therapy. We discussed Pradaxa. He would like to stick with warfarin. He has not had any bleeding complicatio ns. He did have successful right carotid endarterectomy recently. This wound is hea ling nicely. He also had one cataract excised and needs the other one taken out in the near future. His rate has been well controlled in the atrial fibrillati on. He tolerates Bystolic 2.5 mg daily, which controls his rate and blood press ure. Problem List: Arrhythmia Dysrhythmia -Atrial fibrillation 09/14/2002 [...] 2. Normal mitral valve with mild regurgitation. Gil red to the previous study on 09/13/2002, the inferior and inferolateral hypokines is is no longer noted. Hypertension PVD Carotid Disease 10/29/2010 PVD Carotid endarterectomy Right Carotid Endarterectomy- An arterioto my was made in the right common carotid artery and extended into the internal ve ssel with internal carotid artery vessel which had been gently occluded with a v ascular clamp. A complete endarterectomy was carried out. Tobacco Abuse Former Past Medical History: Carotid Disease Past Surgical History: Tonsillectomy Adenoidectomy Parathyroidectomy Final Medications: Bystolic 5 Mg 1/2 tablet daily Aspirin 81 Mg Currently holding ASA Coumadin 5 Mg Take 1 tablet by mouth daily or as directed Allergies/Intolerances: No Known Allergies Family History: Mother Cause of was CAD at age 74. Father Cause of was unknown. 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 Low salt. Exercise: Active Lifestyle. Gardening. Smoking: Former smoker Alcohol: Currently drinks 1 glass of wine occasionally. Caffeine: Caffeine use: 2 cups daily of tea. ROS: 12-point review of systems is negative with the following exceptions: Musculoskeletal/Dermatology: Arthralgias Hematology: Bleed or bruise easily Physical Exam: Vital Signs The patient is 5 feet 8 inches tall and weighs 151 pounds. The BMI is 23.00. Blood pressure taken in the left arm is 112/70 mmHg in the sitting po sition. The pulse is 88. The rhythm is irregular. Const The patient is a well-developed, well-nourished male. Vasc Distal pulses 2+ throughout with no carotid bruits noted. HEENT The pupils are equal and round. The patient's sclerae are clear. There i s no corneal arcus. There are no xanthelasmas noted. The patient's neck veins are flat. EXT The extremities are warm to touch. There is no edema noted. Pulm Lungs are clear to auscultation. Skin The skin is warm and dry. Thorax There is no evidence of pectus excavatum. M/S The patient's gait is normal. Cardiac The point of maximal impulse is normal. No murmurs noted. Irregular ra te and rhythm. Neuro/Psych The patient is alert and oriented to time, person and place. The pa tient's mood is normal. Abd The patient has no abdominal tenderness to palpation. There is no hepatomeg anna. There is no splenomegaly. The abdominal aorta is of normal size. Most Recent Lipids Available for Review: Date Collected: 08/04/2010 Fasting: Fasting Total Cholesterol: 198 HDL: 41 LDL: 147 Triglycerides: 50 Ratio: 4.83 Glucose: 74 ALT 16 HbA1C 5.5 Impression: 1. Persistent atrial fibrillation with CHADs score of 2. He would like to just treat with warfarin and Bystolic and avoid efforts at electrocardioversion. 2. Mild hypertension controlled on Bystolic. 3. Chronic warfarin anticoagulation no bleeding complications. 4. Six weeks post right carotid endarterectomy. He does have normal left ventri cular function, left ventricular ejection fraction 50 percent with inferior and posterior wall motio n abnormalities. He does not have any angina. 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 5. Hypertension controlled. 6. Dyslipidemia he does not tolerate his statin. He is on low-dose red yeast r ice. Plan: 1. Increase red yeast rice to 4 per day. 2. Add Cardiosterol 3 per day. 3. [place]-3 2 per day. 4. Recheck lipids in three months. 5. Continue warfarin and Bystolic for medical management of his atrial fibrillat ion. Follow up: Reid Welch M.D. 6 Months Thank you for allowing me to participate in TENISHA RUSSELL's care. If I can be of any further assistance, please do not hesitate to contact me. Sincerely, Reid BANSAL:siva:alek p.m. F: 12/22/2010 2:44 p.m. documented in this encounter Plan of Treatment Not on filedocumented as of this encounter Visit Diagnoses Not on filedocumented in this encounter
--- OUTSIDE RECORDS SUMMARY | 2019-08-08 14:08 | XMS REPORT | Encounter Summary ---
Author Author [facility] Organization [facility] Address Unknown Phone Unavailable Care Team Providers Care Scalp Treatment Specialist Name Role Phone Sydni Russell PCP Encounter Details Care Team Description Date Type Department Reid Stock MD [address] [facility] [address] [place], [place] [id number] 12/27/2010 [facility] [...] Date/Time Associated Diag nosis PROTHROMBIN TIME/INR Routine 12/28/2010 7:30 AM CDT documented in this encounter Results * Prothrombin Time/INR (12/28/2010 7:30 AM CDT) INR NA NUCMED Comment: Lab Date: [id number] Date Coumadin/warfarin started: 20100910 Location where INR performed: Lab Lab name and contact information: Dr. Proctor([facility]), [id number], [phone] Patient Status: Diagnosis 1: Atrial fibrillation [facility] Diagnosis 2: Target INR Range: 2.0-3.0 Next Lab due: Pending Procedure: NA Patient Instructions(comments): 12/27/10-Bryan Russell, pt bit tough last Tuesday night. They held Coumadin Tuesday night. Went to oral surgeon, he suggested tea bags. Pt woke up Tuesday with blood all over the bed. Pt going to [facility] and will call [phone] with INR. -kklenda Comments (General Comments) : CALL Sydni with results. [phone]. patient daughter patient is a pharm/[facility] office [phone]/ fax [phone] 12-28-10 faxed home monitorpapers per patient request to Jennifer Result reviewed by: Supervising provider name: Specimen Performing Organization Address City/State/Zipcode Ph one Number NUCMED documented in this encounter Visit Diagnoses Not on filedocumented in this encounter
--- OUTSIDE RECORDS SUMMARY | 2019-08-08 14:08 | XMS REPORT | Encounter Summary ---
Author Author [facility] Organization [facility] Address Unknown Phone Unavailable Care Team Providers Care Starting Gate Driver Name Role Phone Sydni Russell PCP Encounter Details Care Team Description Date Type Department [facility] Provider, MD Lars 2011 [facility] - Hist THREE [...] Date/Time Associated Diag nosis PROTHROMBIN TIME/INR Routine 01/26/2011 12:14 PM CDT documented in this encounter Results * Prothrombin Time/INR (01/26/2011 12:14 PM CDT) INR 1.75 NUCMED Comment: Lab Date: [id number] Date Coumadin/warfarin started: 20100910 Location where INR performed: Lab Lab name and contact information: Dr. Proctor([facility]), [id number], [phone] Patient Status: Diagnosis 1: Atrial fibrillation [facility] Diagnosis 2: Target INR Range: 2.0-3.0 Next Lab due: 20110202 Pending Procedure: NA Patient Instructions(comments): take 5mg today then increase dose to 4mg daily ck in 1 wk--Sydni v/u sd Comments (General Comments) : CALL Sydni with results. [phone]. 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 Barney office [phone]/ fax [phone] 12-28-10 faxed home monitorpapers per patient request to [facility], test 1-4x mthly/sd Patient Notified: Yes (Stacy Jaquez) Result reviewed by: Stacy Jaquez Supervising provider name: Eriberto Carrasquillo Specimen Performing Organization Address City/State/Zipcode Ph one Number NUCMED documented in this encounter Visit Diagnoses Not on filedocumented in this encounter
--- OUTSIDE RECORDS SUMMARY | 2019-08-08 14:08 | XMS REPORT | Encounter Summary ---
Author Author [facility] Organization [facility] Address Unknown Phone Unavailable Care Team Providers Care Kosher Dietary Service Manager Name Role Phone Arely Russell PCP Encounter Details Care Team Description Date Type Department [facility] Provider, MD Lars 01/19/2011 [facility] - Hist [facility]IST[facility]I C Visit Social [...] Date/Time Associated Diag nosis PROTHROMBIN TIME/INR Routine 01/19/2011 12:41 PM CDT documented in this encounter Results * Prothrombin Time/INR (01/19/2011 12:41 PM CDT) INR 1.85 NUCMED Comment: Lab Date: [id number] Date Coumadin/warfarin started: 20100910 Location where INR performed: Lab Lab name and contact information: Dr. Proctor([facility]), [id number], [phone] Patient Status: Diagnosis 1: Atrial fibrillation [facility] Diagnosis 2: Target INR Range: 2.0-3.0 Next Lab due: 20110126 Pending Procedure: NA Patient Instructions(comments): take 5mg today then increase dose to 3.5mg daily ck in 1 wk--- arely v/u sd Comments (General Comments) : CALL Arely with results. [phone]. 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 Barney office [phone]/ fax [phone] 12-28-10 faxed home monitorpapers per patient request to dirk Simmons 1-4x mthly/sd Patient Notified: Yes (Stacy Jaquez) Result reviewed by: Stacy Jaquez Supervising provider name: Specimen Performing Organization Address City/State/Zipcode Ph one Number NUCMED documented in this encounter Visit Diagnoses Not on filedocumented in this encounter
--- OUTSIDE RECORDS SUMMARY | 2019-08-08 14:08 | XMS REPORT | Encounter Summary ---
Author Author [facility] Organization [facility] Address Unknown Phone Unavailable Care Team Providers Care Aircraft Engine Dismantler Name Role Phone Sydni Russell PCP Encounter Details Care Team Description Date Type Department [facility] Provider, MD Lars 12/08/2010 [facility] Date/Time Associated Diag nosis PROTHROMBIN TIME/INR Routine 12/08/2010 11:09 AM CDT documented in this encounter Results * Prothrombin Time/INR (12/08/2010 11:09 AM CDT) INR 1.43 NUCMED Comment: Lab Date: [id number] Date Coumadin/warfarin started: 20100910 Location where INR performed: Lab Lab name and contact information: Dr. Proctor([facility]), [id number], [id number] Patient Status: Diagnosis 1: Atrial fibrillation [facility] Diagnosis 2: Target INR Range: 2.0-3.0 Next Lab due: 20101215 Pending Procedure: NA Patient Instructions(comments): take 7.5mg tonight then cont 5mg daily and retest in 1 wk ph---patients daughter Sydni notified and voiced understanding. cjj Comments (General Comments) : CALL Sydni with results. [phone]. 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 Barney office [phone]/ fax [phone] Patient Notified: Yes (Citlali Wolfe) Result reviewed by: Tonja Nice Supervising provider name: Eriberto Carrasquillo Specimen Performing Organization Address City/State/Zipcode Ph one Number NUCMED documented in this encounter Visit Diagnoses Not on filedocumented in this encounter
--- OUTSIDE RECORDS SUMMARY | 2019-08-08 14:08 | XMS REPORT | Encounter Summary ---
Author Author [facility] Organization [facility] Address Unknown Phone Unavailable Care Team Providers Care Manager Nuclear Name Role Phone YvonneSydni head PCP Encounter Details Care Team Description Date Type Department [facility] Provider, MD Lars [facility] Date/Time Associated Diag nosis PROTHROMBIN TIME/INR Routine 2011 2:51 PM CDT documented in this encounter Results * Prothrombin Time/INR (2011 2:51 PM CDT) INR NA NUCMED Comment: Lab Date: 20110127 Date Coumadin/warfarin started: 20100910 Location where INR performed: Lab Lab name and contact information: Dr. Proctor([facility]), [id number], [phone] Patient Status: Diagnosis 1: Atrial fibrillation [facility] Diagnosis 2: Target INR Range: 2.0-3.0 Next Lab due: 20110202 Pending Procedure: NA Patient Instructions(comments): Patient's called asking about the home meter. She will call [facility] to see about the patient form and if it was sent yet. Comments (General Comments) : CALL Sydni with results. [phone]. 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 Barney office [phone]/ fax [phone] 12-28-10 faxed home monitorpapers per patient request to [facility] test 1-4x mthly/sd Result reviewed by: Supervising provider name: Specimen Performing Organization Address City/State/Zipcoks Ph one Number NUCMED documented in this encounter Visit Diagnoses Not on filedocumented in this encounter
--- OUTSIDE RECORDS SUMMARY | 2019-08-08 14:08 | XMS REPORT | Encounter Summary ---
Author Author [facility] Organization [facility] Address Unknown Phone Unavailable Care Team Providers Care Tribunal Member Name Role Phone Sydni Russell PCP Encounter Details Care Team Description Date Type Department [facility] Provider, MD Lars 12/28/2010 [facility] - Hist [facility] HISTORIC CLINI C Visit [...] Associated Diag nosis PROTHROMBIN TIME/INR Routine 12/28/2010 2:39 PM CDT documented in this encounter Results * Prothrombin Time/INR (12/28/2010 2:39 PM CDT) INR 3.70 NUCMED Comment: Lab Date: [id number] Date Coumadin/warfarin started: 20100910 Location where INR performed: Lab Lab name and contact information: Dr. Proctor([facility]), [id number], [phone] Patient Status: Diagnosis 1: Atrial fibrillation [facility] Diagnosis 2: Target INR Range: 2.0-3.0 Next Lab due: 20110106 Pending Procedure: NA Patient Instructions(comments): hold tonight then take 2.5mg tomorrow then cont 5mg daily and recheck in 1 wk. . IS patient on Antibiotics? per patients daughter patient held on tuesday and tuesday . Now will hold today then follow instructions. Will recheck in 1 wk. cjj Comments (General Comments) : CALL Sydni with results. [phone]. 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 Barney office [phone]/ fax [phone] 12-28-10 faxed home monitorpapers per patient request to [facility] Patient Notified: Yes (Citlali Wolfe) Result reviewed by: Citlali Wolfe Supervising provider name: Eriberto Carrasquillo Specimen Performing Organization Address City/State/Zipcode Ph one Number NUCMED documented in this encounter Visit Diagnoses Not on filedocumented in this encounter
--- OUTSIDE RECORDS SUMMARY | 2019-08-08 14:08 | XMS REPORT | Encounter Summary ---
Author Author [facility] Organization [facility] Address Unknown Phone Unavailable Care Team Providers Care Qa Automation Developer Name Role Phone [place] PCP Encounter Details Care Team Description Date Type Department Reid Stock MD [address] [facility] [address] [place] [address] [phone] 01/04/2011 [facility] - [facility] C Visit Social History Date [...]
--- OUTSIDE RECORDS SUMMARY | 2019-08-08 14:08 | XMS REPORT | Encounter Summary ---
Author Author [facility] Organization [facility] Address Unknown Phone Unavailable Care Team Providers Care Apparel Stock Checker Name Role Phone YvonneSydni head PCP Encounter Details Care Team Description Date Type Department [facility] Provider, MD Lars 02/02/2011 [facility] Date/Time Associated Diag nosis PROTHROMBIN TIME/INR Routine 02/02/2011 4:54 PM CDT documented in this encounter Results * Prothrombin Time/INR (02/02/2011 4:54 PM CDT) INR 2.98 NUCMED Comment: Lab Date: [id number] Date Coumadin/warfarin started: 20100910 Location where INR performed: Lab Lab name and contact information: Dr. Proctor([facility]), [id number], [phone] Patient Status: Diagnosis 1: Atrial fibrillation [facility] Diagnosis 2: Target INR Range: 2.0-3.0 Next Lab due: 20110209 Pending Procedure: NA Patient Instructions(comments): take 2mg tonight then cont 4mg daily and retest in 1 wk ph.....His dtr is a doctor and wants him in the lower 2"s. ph Comments (General Comments) : CALL Sydni with results. [phone]. 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 Barney office [phone]/ fax [phone] 12-28-10 faxed home monitorpapers per patient request to [facility], test 1-4x mthly/sd Patient Notified: Yes (Tonja Nice) Result reviewed by: Tonja Nice Supervising provider name: Eriberto Carrasquillo Specimen Performing Organization Address City/State/Zipcode Ph one Number NUCMED documented in this encounter Visit Diagnoses Not on filedocumented in this encounter
--- OUTSIDE RECORDS SUMMARY | 2019-08-08 14:08 | XMS REPORT | Encounter Summary ---
Author Author [facility] Organization [facility] Address Unknown Phone Unavailable Care Team Providers Care Machine Filler Name Role Phone Sydni Russell PCP Encounter Details Care Team Description Date Type Department [facility] ProviderLars MD 11/17/2010 [facility] - Hist [facility] HISTORIC CLINI [...] Date/Time Associated Diag nosis PROTHROMBIN TIME/INR Routine 11/12/2010 12:22 PM CDT documented in this encounter Results * Prothrombin Time/INR (11/12/2010 12:22 PM CDT) INR 2.43 NUCMED Comment: Lab Date: 20101112 Date Coumadin/warfarin started: 20100910 Location where INR performed: Lab Lab name and contact information: Dr. Proctor([facility]), [id number], [phone] Patient Status: Diagnosis 1: Atrial fibrillation [facility] Diagnosis 2: Target INR Range: 2.0-3.0 Next Lab due: 20101126 Pending Procedure: NA Patient Instructions(comments): cont 5mg daily and recheck in 2 wk.--Sydni v/u sd Comments (General Comments) : CALL Sydni with results. [phone]. 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 Barney office [phone]/ fax [phone] Patient Notified: Yes (Stacy Jaquez) Result reviewed by: Tonja Nice Supervising provider name: Eriberto Carrasquillo Specimen Performing Organization Address City/State/Zipcode Ph one Number NUCMED documented in this encounter Visit Diagnoses Not on filedocumented in this encounter
--- OUTSIDE RECORDS SUMMARY | 2019-08-08 14:08 | XMS REPORT | Encounter Summary ---
Author Author [facility] Organization [facility] Address Unknown Phone Unavailable Care Team Providers Care Motor Bike Mechanic Name Role Phone YvonneSydni head PCP Encounter Details Care Team Description Date Type Department [facility] Provider, MD Lars 12/11/2010 [facility] - Hist [facility] [...] Date/Time Associated Diag nosis PROTHROMBIN TIME/INR Routine 12/11/2010 11:48 AM CDT documented in this encounter Results * Prothrombin Time/INR (12/11/2010 11:48 AM CDT) INR 2.40 NUCMED Comment: Lab Date: 20101211 Date Coumadin/warfarin started: 20100910 Location where INR performed: Lab Lab name and contact information: Dr. Proctor([facility]), [id number], [phone] Patient Status: Diagnosis 1: Atrial fibrillation [facility] Diagnosis 2: Target INR Range: 2.0-3.0 Next Lab due: 20101218 Pending Procedure: NA Patient Instructions(comments): cont 5mg daily and recheck in 1 wk. cjj--Sydni v/u sd ( cataract sx on Mon with Dr. Gilmore office faxed protime ) faxed protime to Dr Patricia Comments (General Comments) : CALL Sydni with results. [phone]. 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 Barney office [phone]/ fax [phone] Patient Notified: Yes (Stacy Jaquez) Result reviewed by: Citlali Wolfe Supervising provider name: Meet Leigh Specimen Performing Organization Address City/State/Zipcode Ph one Number NUCMED documented in this encounter Visit Diagnoses Not on filedocumented in this encounter
--- OUTSIDE RECORDS SUMMARY | 2019-08-08 14:09 | XMS REPORT | Encounter Summary ---
Author Author [facility] Organization [facility] Address Unknown Phone Unavailable Care Team Providers Care Director Oracle Name Role Phone [place] PCP Encounter Details Care Team Description Date Type Department [facility] Provider, MD Lars 09/30/2010 [facility]-Hist EF [facility] C Social History Date Tobacco Use Types Packs/Day [...] Procedure Name Priority Date/Time Associated Diag nosis ECHO EJECTION FRACTION Routine 09/30/2010 HISTORICAL 3:09 PM CDT documented in this encounter Results * Echo Ejection Fraction historical (09/30/2010 3:09 PM CDT) Ejection 60Comment: Echo PROSOLV Fraction Specimen Performing Organization Address City/State/Zipcode Ph one Number PROSOLV documented in this encounter Visit Diagnoses Not on filedocumented in this encounter
--- OUTSIDE RECORDS SUMMARY | 2019-08-08 14:09 | XMS REPORT | Encounter Summary ---
Author Author [facility] Organization [facility] Address Unknown Phone Unavailable Care Team Providers Care Electrical Systems Engineer Name Role Phone YvonneSydni head PCP Encounter Details Care Team Description Date Type Department [facility] Provider, MD Lars 10/08/2010 [facility] - Hist [facility]I [facility] Visit Social [...] Date/Time Associated Diag nosis PROTHROMBIN TIME/INR Routine 10/07/2010 4:34 PM CDT documented in this encounter Results * Prothrombin Time/INR (10/07/2010 4:34 PM CDT) INR 2.60 NUCMED Comment: Lab Date: [id number] Date Coumadin/warfarin started: 20100910 Location where INR performed: Lab Lab name and contact information: Dr. Proctor([facility]), [phone], [phone] Patient Status: Diagnosis 1: Atrial fibrillation [facility] Diagnosis 2: Target INR Range: 2.0-3.0 Next Lab due: [id number] Pending Procedure: NA Patient Instructions(comments): cont 5mg daily and recheck in 2 wkph...spoke with Sydni durand Comments (General Comments) : CALL Sydni with results. [phone]. 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 Barney office [phone]/ fax [phone] Patient Notified: Yes (Tonja Nice) Result reviewed by: Tonja Nice Supervising provider name: Eriberto Carrasquillo Specimen Performing Organization Address City/State/Zipcode Ph one Number NUCMED documented in this encounter Visit Diagnoses Not on filedocumented in this encounter
--- OUTSIDE RECORDS SUMMARY | 2019-08-08 14:09 | XMS REPORT | Encounter Summary ---
Author Author [facility] Organization [facility] Address Unknown Phone Unavailable Care Team Providers Care Deck Scaler Name Role Phone PCP Unavailable Encounter Details Care Team Description Date Type Department Reid Stock MD [address] [facility] [address] [place] [address] [phone] [facility] [address] [place] [address] Social History Date Tobacco Use Types Packs/Day [...] tablet (81MG) by oral route every day 08/04/2010 01/08/2015 dabigatran etexilate take 1 60 [...] Date/Time Associated Diag nosis THYROID STIMULATING Routine 08/04/2010 [address] 4:[address] [facility] PSA FREE Routine 08/04/2010 4:[address] [facility] PROTHROMBIN TIME/INR Routine 08/04/2010 4:[address] [facility] POTASSIUM Routine 08/04/2010 4:[address] [facility] MAGNESIUM Routine 08/04/2010 4:[address] [facility] LIPID PANEL Routine 08/04/2010 4:[address] [facility] HS CRP Routine 08/04/2010 4:[address] [facility] HEMOGLOBIN A1C Routine 08/04/2010 4:[address] [facility] GLUCOSE Routine 08/04/2010 4:[address] [facility] CREATININE Routine 08/04/2010 4:[address] [facility] CBC AND DIFF (MANUAL DIFF Routine 08/04/2010 IF NECESSARY) 4:[address] [facility] ALANINE AMINOTRANSFERASE Routine 08/04/2010 4:[address] [facility] VITAMIN D, 25-HYDROXY Routine 08/04/2010 4:[address] [facility] documented in this encounter Results * Prothrombin Time/INR (08/04/2010 4:[address] [facility]) Protime 13.9 11.7 - 14.3 SEC [facility] INR 1.1 0.9 - 1.1 [facility] Specimen Blood Performing Organization Address City/State/Zipcode Ph one Number [facility] [address] [place], [place] [address] [place] * CBC and Diff (manual diff if necessary) (08/04/2010 4:[address] [facility]) WBC 6.00 4.00 - 11.00 TH/UL [facility] RBC 4.99 4.31 - 5.84 MIL/UL [facility] Hemoglobin 15.6 13.0 - 17.0 G/DL [facility] Hematocrit 46 40 - 50 % [facility] MCV 92 80 - 99 FL [place] MCH 31 27 - 34 PG [facility] MCHC 34 32 - 36 % [facility] RDW 13.5 9.0 - 14.5 % [facility] Platelet Count 141 140 - 400 TH/UL [facility] MPV 9.8 9.4 - 12.3 FL [place] % Neutrophils 58 45 - 78 % [place] %Lymphocytes 32 15 - 47 % [place] %Monocytes 6 0 - 12 % [place] %Eosinophils 4 0 - 7 % [place] # Basophils 0.02 0.00 - 0.10 TH/UL [place] # Eosinophils 0.21 0.00 - 0.40 TH/UL [place] %Basophils 0 0 - 2 % [place] # Monocytes 0.37 0.20 - 0.90 TH/UL [place] # Lymphocytes 1.94 1.00 - 3.30 TH/UL [place] # Granulocytes 3.46 1.70 - 6.80 TH/UL [place] Specimen Blood Performing Organization Address [facility] one Number [facility] [address] [place] [address] [place] * Thyroid Stimulating Hormone (08/04/2010 4:[address] [facility]) Thyroid 1.57 0.45 - 4.50 UIU/ML [facility] Stimulating Hormone Specimen Blood Performing Organization Address [facility] one Number [facility] [address] [place] [address] [place] * PSA Free (08/04/2010 4:[address] [facility]) PSA Total 0.9 0.0 - 4.0 NG/ML [facility] Comment: Method for [facility] is Ricki Rob. Free PSA has not been validated for Total PSA <2.5 ng/ml PSA FREE % 33.3 25 - 100 % [facility] PSA Free 0.3 NG/ML [facility] Specimen Blood Performing Organization Address [facility] one Number [facility] [address] [place] [address] [place] * hs CRP (08/04/2010 4:[address] [facility]) HS CRP 1.03 MG/L [facility] Comment: Low Cardiac Risk <1.00 mg/L Average Cardiac Risk 1.00 - 3.00 mg/L High Cardiac Risk >3.00 mg/L Specimen Blood Performing Organization Address [facility] one Number [facility] [address] [place] [address] [place] * Creatinine (08/04/2010 4:[address] [facility]) Creatinine 0.9 0.6 - 1.3 MG/DL [facility] eGFR Male AA 99 [facility] Comment: Chronic Kidney Disease less than 60 mL/min/1.73 sq.m Kidney failure less than 15 mL/min/1.73 sq.m eGFR Male 82 [facility] Non-AA Comment: Chronic Kidney Disease less than 60 mL/min/1.73 sq.m Kidney failure less than 15 mL/min/1.73 sq.m Specimen Blood Performing Organization Address [facility] one Number [facility] [address] [place] [address] [place] * Glucose (08/04/2010 4:[address] [facility]) Glucose 74 65 - 100 MG/DL [facility] Specimen Blood Performing Organization Address [facility] one Number [facility] [address] [place] [address] [place] * Lipid Panel (08/04/2010 4:[address] [facility]) Cholesterol 198 100 - 200 MG/DL [facility] Triglycerides 50 0 - 150 MG/DL [facility] HDL Cholesterol 41 40 - 110 MG/DL [facility] LDL Cholesterol 147 (H) 0 - 99 MG/DL [facility] Cholesterol/HDL 4.8 (H) 0.0 - 4.5 [facility] Ratio Non-HDL 157 (H) 0 - 130 MG/DL [facility] Cholesterol Hours 18 H [facility] Postprandial Specimen Blood Performing Organization Address [facility] one Number [facility] [address] [place] [address] [place] * Magnesium (08/04/2010 4:[address] [facility]) Magnesium 1.6 1.4 - 2.0 MEQ/L [facility] Specimen Blood Performing Organization Address [facility] one Number [facility] [address] [place] [address] [place] * Potassium (08/04/2010 4:[address] [facility]) Potassium 4.4 3.5 - 5.1 MEQ/L [facility] Specimen Blood Performing Organization Address [facility] Ph one Number [facility] [address] [place], [place] [address] [place] * Alanine Aminotransferase (08/04/2010 4:[address] [facility]) Alanine 16 14 - 63 IU/L [facility] Aminotransferas e Specimen Blood Performing Organization Address [facility] one Number [facility] [address] [place], [place] [address] [place] * Hemoglobin A1C (08/04/2010 4:[address] [facility]) HEMOGLOBIN A1C 5.5 4.0 - 6.0 % [facility] Comment: Non-diabetic: 4.0 - 6.0 % Very Good Control: < 7.0 % Suboptimal Control: 7.1 - 8.0 % Poor Control: >8.0 % Specimen Blood Performing Organization Address [facility] one Number [facility] [address] [place], [place] [address] [place] * Vitamin D, 25-Hydroxy (08/04/2010 4:[address] [facility]) Vitamin D <5 NG/ML [facility] 25-Hydroxy D2 Vitamin D 41 NG/ML [facility] 25-Hydroxy D3 Vitamin D 41 25 - 80 NG/ML [facility] 25-Hydroxy Comment: Test performed by [facility] [address] [place] [address] Specimen Blood Performing Organization Address [facility] one Number [facility] [address] [place], [place] [address] [place] documented in this encounter Visit Diagnoses Not on filedocumented in this encounter
--- OUTSIDE RECORDS SUMMARY | 2019-08-08 14:09 | XMS REPORT | Encounter Summary ---
Author Author [facility] Organization [facility] Address Unknown Phone Unavailable Care Team Providers Care Professional Advisor Name Role Phone GarfieldSydni head PCP Encounter Details Care Team Description Date Type Department Carmelina Hodges RN ANP [address] [facility] [address] [place] [address] [phone] 06/19/2010 [facility] Visit Social History Date [...]
--- OUTSIDE RECORDS SUMMARY | 2019-08-08 14:09 | XMS REPORT | Encounter Summary ---
Author Author [facility] Organization [facility] Address Unknown Phone Unavailable Care Team Providers Care Breakfast Cook Name Role Phone [place] BendSydni head PCP Encounter Details Care Team Description Date Type Department Carmelina Hodges RN ANP [address] [facility] [address] [place] [address] [phone] 06/19/2010 [facility] Visit Social History [...]
--- OUTSIDE RECORDS SUMMARY | 2019-08-08 14:09 | XMS REPORT | Encounter Summary ---
Author Author [facility] Organization [facility] Address Unknown Phone Unavailable Care Team Providers Care School Health Assistant Name Role Phone [place]Sydni head PCP Encounter Details Care Team Description Date Type Department [facility] ProviderLars MD 06/25/2010 [facility]ISTORIC [facility] C Result Social History Date [...] Name Priority Date/Time Associated Diag nosis CV CT ANGIO HISTORICAL Routine 06/25/2010 documented in this encounter Results * CV CT Angio historical (06/25/2010) Specimen Narrative Performed At Procedure Category: CTA NEXTGEN Procedure: CT Angio Neck Procedure Summary: Extensive bilateral soft and hard plaques at the bifurcations. The carotids bilaterally resulting in hemodynamically significant degree of the distal right common and p roximal right ICA stenosis of about 80% and moderate stenosis of left bifurcation and proximal ICA of ap proximately 50%. Procedure Note Interface, Rad Conversion - 12/24/2014 11:50 PM CDT Procedure Category: CTA Procedure: CT Angio Neck Procedure Summary: Extensive bilateral soft and hard plaques at the bifurcations. The carotids bilaterally resulting in hemodynamically significant degree of the distal right common and proximal right ICA stenosis of about 80% and moderate stenosis of left bifurcation and proximal ICA of approximately 50%. Performing Organization Address City/State/Zipcode Ph one Number NEXTGEN documented in this encounter Visit Diagnoses Not on filedocumented in this encounter
--- OUTSIDE RECORDS SUMMARY | 2019-08-08 14:09 | XMS REPORT | Encounter Summary ---
Author Author [facility] Organization [facility] Address Unknown Phone Unavailable Care Team Providers Care Commercial Loan Processor Name Role Phone YvonneSydni head PCP Encounter Details Care Team Description Date Type Department [facility] Provider, MD Lars 09/23/2010 [facility] - Hist [facility] Visit Social History Date [...] Date/Time Associated Diag nosis PROTHROMBIN TIME/INR Routine 09/21/2010 9:51 AM CDT documented in this encounter Results * Prothrombin Time/INR (09/21/2010 9:51 AM CDT) INR 2.20 NUCMED Comment: Lab Date: [id number] Date Coumadin/warfarin started: 20100910 Location where INR performed: Lab Lab name and contact information: Dr. Proctor([facility]), [phone], [id number] Patient Status: Diagnosis 1: Atrial fibrillation [facility] Diagnosis 2: Target INR Range: 2.0-3.0 Next Lab due: 20100923 Pending Procedure: NA Patient Instructions(comments): 09/19/10- 2.2 INR. Spoke withTammy, pt's daughter. Continue normal dose. Recheck INR on . -kkda Comments (General Comments) : CALL Sydni with results. [phone]. 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
--- OUTSIDE RECORDS SUMMARY | 2019-08-08 14:09 | XMS REPORT | Encounter Summary ---
Author Author [facility] Organization [facility] Address Unknown Phone Unavailable Care Team Providers Care Package Crimper Name Role Phone PCP Unavailable Encounter Details Care Team Description Date Type Department Reid Stock MD [address] [facility] [address] [place] [address] [phone] Atrial fibrillation (HCC) 09/30/2010 [place] [address] Social History Date Tobacco Use Types Packs/Day [...] Name Priority Date/Time Associated Diag nosis ECHO TRANSTHORACIC Routine 09/30/2010 3:09 PM CDT documented in this encounter Results * ECHO TRANSTHORACIC (09/30/2010 3:09 PM CDT) Specimen Narrative Performed At [facility] RAD ECHOCARDIOGRAM REPORT [facility] Name: TENISHA RUSSELL Date: 09/30/2010 15:09 Chart #: [id number] : 1935 Location: [facility] Sono: zenobiaedouard Age: 75 Gender: M Referring: Reid Welch Room #: OP Indication Atrial fibrillation Procedure -[id number] Complete Echo 2D/Color flow/Doppler BP: 120 / 82 HR: 100 Ht: 68 Wt: 157 BSA: 1.8 2D ECHO MEASUREMENTS LV Diastolic Diameter Bas 5.1 cm 3.6-5.4 IVS Diastolic Thickness 0.9 cm 0.6-1.1 LV Systolic Diameter Base 4.3 cm 2.3-4.0 LVPW Diastolic Thickness 0.9 cm 0.6-1.1 LA Systolic Diameter LX 4.6 cm 2.3-3.8 Ascending Aorta Diameter 2.9 cm 2.1-3.4 MITRAL VALVE DOPPLER Mitral E Point Velocity 84.4 cm/s TRICUSPID VALVE DOPPLER RV Systolic Pressure 34.2 mmHg WALL SEGMENT ANALYSIS: ROUTINE LVSI : 1 %FM : 100 LAD : 1 LCX : 1 RCA : 1 FINDINGS LV Ejection Fraction: 60 Atrial fibrillation. Normal left ventricular systolic functi on, with an estimated ejection fraction of 60%. Normal wall thickness. Normal wall motion. Normal left ventricular chamber dimensi ons. Normal right ventricular size and systo lic function. Normal right atrial size. Severe left a trial dilatation. Sclerotic aortic valve without regurgit ation. Normal mitral valve with mild regurgita tion. Normal pulmonic valve with trivial regu rgitation. Normal tricuspid valve with mild regurg itation. Estimated PA pressure =34 mmHg. No pericardial effusion. IVC is responsive to inspiration indica ting normal RA pressure. Normal ascending aorta. No intracardiac masses or thrombi. CONCLUSIONS: 1. Normal left ventricular systolic fun ction, with an estimated ejection fraction of 60%. 2. Normal mitral valve with mild regurg itation. Compared to the previous study on 2002, the inferior and inferolateral hypokinesis is no longer noted. Dr Tristan Gandhi (Electronically Signed) Final Date: 30 September 2010 15:45 Procedure Note Interface, Rad Conversion - 08/14/2013 1:24 PM CDT RESULT ECHOCARDIOGRAM REPORT [facility] Name: TENISHA RUSSELL Date: 09/30/2010 15:09 Chart #: [id number] : 1935 Location: [facility] Sono: marj Age: 75 Gender: M Referring: Reid Welch Room #: OP Indication Atrial fibrillation Procedure -[id number] Complete Echo 2D/Colorflow/Doppler BP: 120 / 82 HR: 100 Ht: 68 Wt: 157 BSA: 1.8 2D ECHO MEASUREMENTS LV Diastolic Diameter Bas 5.1 cm 3.6-5.4 IVS Diastolic Thickness 0.9 cm 0.6-1.1 LV Systolic Diameter Base 4.3 cm 2.3-4.0 LVPW Diastolic Thickness 0.9 cm 0.6-1.1 LA Systolic Diameter LX 4.6 cm 2.3-3.8 Ascending Aorta Diameter 2.9 cm 2.1-3.4 MITRAL VALVE DOPPLER Mitral E Point Velocity 84.4 cm/s TRICUSPID VALVE DOPPLER RV Systolic Pressure 34.2 mmHg WALL SEGMENT ANALYSIS: ROUTINE LVSI : 1 %FM : 100 LAD : 1 LCX : 1 RCA : 1 FINDINGS LV Ejection Fraction: 60 Atrial fibrillation. Normal left ventricular systolic function, with an estimated ejection fraction of 60%. Normal wall thickness. Normal wall motion. Normal left ventricular chamber dimensions. Normal right ventricular size and systolic function. Normal right atrial size. Severe left atrial dilatation. Sclerotic aortic valve without regurgitation. Normal mitral valve with mild regurgitation. Normal pulmonic valve with trivial regurgitation. Normal tricuspid valve with mild regurgitation. Estimated PA pressure =34 mmHg. No pericardial effusion. IVC is responsive to inspiration indicating normal RA pressure. Normal ascending aorta. No intracardiac masses or thrombi. CONCLUSIONS: 1. Normal left ventricular systolic func tion, with an estimated ejection fraction of 60%. 2. Normal mitral valve with mild regurgi tation. Compared to the previous study on 09/13/2002, the inferior and inferolateral hypokinesis is no longer noted. Dr Tristan Gandhi (Electronically Signed) Final Date: 30 September 2010 15:45 Performing Organization Address City/State/Zipcode Ph one Number [facility]ARDI[facility] [address] [place] [address] documented in this encounter Visit Diagnoses Diagnosis Atrial fibrillation (HCC) Atrial fibrillation documented in this encounter
--- OUTSIDE RECORDS SUMMARY | 2019-08-08 14:09 | XMS REPORT | Encounter Summary ---
Author Author [facility] Organization [facility] Address Unknown Phone Unavailable Care Team Providers Care Lapel Padder Blindstitch Name Role Phone Sydni Russell PCP Encounter Details Care Team Description Date Type Department [facility] ProviderLars MD 10/28/2010 [facility]ISTORIC CL[facility] C Result Social History [...] Procedure Name Priority Date/Time Associated Diag nosis CVL ENDOVASCULAR ARTERIAL Routine 10/28/2010 ANEURYSM REPAIR documented in this encounter Results * CVL Endovascular Repair (10/28/2010) Specimen Narrative Performed At Procedure Category: PVD NEXTGEN Procedure: Cerebral angiography Procedure Summary: A near occlusion of the right internal carotid artery at its origin due to a 99% stenosis with a "string si gn". There is only minimal antegrade filling of the cervical right ICA seen with no filling of the intracranial ICA , MCA or SHAE during th e right common carotid injections. A 40% stenosis of the lef t ICA origin due to focal atherosclerotic plaque. No stenosis of either vertebr al artery origin. The right MCA and right SHAE territories are supplied from anterior communicating artery and posterior comm unicating artery collaterals Procedure Note Interface, Rad Conversion - 12/24/2014 9:24 PM CDT Procedure Category: PVD Procedure: Cerebral angiography Procedure Summary: A near occlusion of the right internal carotid artery at its origin due to [...] communicating artery and posterior communicating artery collaterals Performing Organization Address City/State/Zipcode Ph one Number NEXTGEN documented in this encounter Visit Diagnoses Not on filedocumented in this encounter
--- OUTSIDE RECORDS SUMMARY | 2019-08-08 14:09 | XMS REPORT | Encounter Summary ---
Author Author [facility] Organization [facility] Address Unknown Phone Unavailable Care Team Providers Care Pet Caretaker Name Role Phone Sydni Russell PCP Encounter Details Care Team Description Date Type Department Finesse Donovan MD [address] [facility] [address] [place], [place] [id number] 09/14/2010 [facility] - Hist [facility] HISTORIC CLINI C Visit Social [...] Date/Time Associated Diag nosis PROTHROMBIN TIME/INR Routine 09/14/2010 11:11 AM CDT documented in this encounter Results * Prothrombin Time/INR (09/14/2010 11:11 AM CDT) INR NA NUCMED Comment: Lab Date: [id number] Date Coumadin/warfarin started: 20100910 Location where INR performed: Lab Lab name and contact information: Dr. Proctor([facility]), [phone], [phone] Patient Status: Diagnosis 1: Atrial fibrillation [facility] Diagnosis 2: Target INR Range: 2.0-3.0 Next Lab due: [id number] Pending Procedure: NA Patient Instructions(comments): patient was undercare of Dr. Proctor, was told to start Pradaxa however patient refused, so he was placed on Coumadin( brand) 5mg daily on 09-10-10, we will not follow him thru our clinic, labs will be drawn at Dr. Coy office then sent to Lab, standing order sent to Dr. 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
--- OUTSIDE RECORDS SUMMARY | 2019-08-08 14:09 | XMS REPORT | Encounter Summary ---
Author Author [facility] Organization [facility] Address Unknown Phone Unavailable Care Team Providers Care Coil Assembler Name Role Phone Sydni Russell PCP Encounter Details Care Team Description Date Type Department Reid Stock MD [address] [facility] [address] [place] [address] [phone] 09/30/2010 [facility] HISTORIC [...] Signs Reading Time Taken Comments Vital Sign 128/70 09/30/2010 4:04 PM CDT Blood Pressure 78 09/30/2010 4:04 PM CDT Pulse - - Temperature - - Respiratory Rate - - Oxygen Saturation - - Inhaled Oxygen Concentration 71.2 kg (157 lb) 09/30/2010 4:04 PM CDT normal Weight 172.7 cm (5' 8") 09/30/2010 4:04 PM CDT Height 23.87 09/30/2010 4:04 PM CDT Body Mass Index documented in this encounter Progress Notes * Reid Stock MD - 09/30/2010 4:30 PM CDT [address] [address] September 30, 2010 Pravin Proctor MD [address] [place] [address] RE: TENISHA RUSSELL : 1935 Chart #: [id number] Visit provider: Reid Welch M.D. Visit location: [facility] Dear Dr. Proctor: I had the pleasure of seeing TENISHA RUSSELL in the office today. He is 75 years of age and presents with the following chief complaint: atrial fibrillation. HPI: Tenisha is a pleasant, 75-year-old male. He has atrial fibrillation that has been persistent for approximately 6 months. His CHADS score is 2. He has been on war farin, Plavix, and aspirin. He started the Plavix on his own after we discovered he has significant cerebrovascular disease. He has asymptomatic carotid disease with an 80% stenosis on the right and a 50% stenosis on the left (both of these lesions are in the internal carotid arteries ). He has seen Dr. Comer, who suggested he consider carotid endarterectomy. Mr. Russell does have a history of coronary artery disease and underwent percutaneo us coronary intervention 8 years ago. He is currently asymptomatic. He has hyper tension that has been controlled with Bystolic. He has dyslipidemia. He is not w illing to take a statin. Problem List: Arrhythmia Dysrhythmia -Atrial fibrillation 09/14/2002 [...] was stented with a 3.5 mm stent. T he 50% diagonal stenosis was not dilated. 08/04/2010 Dyslipidemia Hypertension PVD Carotid Disease Tobacco Abuse Former Past Medical History: Carotid Disease Past Surgical History: Parathyroidectomy Final Medications: Coumadin 5 Mg Take 1 tablet by mouth daily or as directed Aspirin 81 Mg Take 1 tablet (81MG) by oral route every day Bystolic 5 Mg Take 1 tablet (5MG) by oral route every day Allergies: No Known Allergies Family History: Mother Cause of was unknown at age 65. 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 Gardening Smoking: Former smoker Alcohol: Currently drinks 1 wine occasionally. Caffeine: Caffeine use: 1 cup daily of tea ROS: 12-point review of systems is negative with the following exceptions: Constitutional: Fatigue, Cough Pulmonary: Snore, Daytime drowsiness Hematology: Bleed or bruise easily Endocrine/Psych: Cold intolerance Physical Exam: Vital Signs The patient is 5 feet 8 inches tall and weighs 157 pounds. The BMI is 23.90. Blood pressure taken in the left arm is 128/70 mmHg in the sitting position. The pul se is 78. The rhythm is regular. Const The patient [...] Skin The skin is warm and dry. Pulm Lungs are clear to auscultation. Thorax There is no evidence of pectus excavatum. M/S The patient's gait is normal. Cardiac The point of maximal impulse is normal. No murmurs noted. Irregular rat e and rhythm. Neuro/Psych The patient is alert [...] 4.83 Glucose: 74 ALT 16 HbA1C 5.5 Impressions: 1. Bilateral carotid disease with a significant lesion on the right (80%) by CTA and carotid duplex. 2. Persistent atrial fibrillation for approximately 6 months, with a CHADS score of 2. 3. He is on aspirin, Plavix, and warfarin. This does pose excessive bleeding ris ks. 4. Hypertension-controlled. 5. Dyslipidemia-untreated. He is unwilling to take a prescription for that. 6. Coronary artery disease-post percutaneous coronary intervention. Plan: 1. Red yeast rice 4 capsules per day. 2. Recheck lipids in 3 months. 3. Cerebral angiogram. 4. Dr. Comer will follow up after the results of the cerebral angiogram are deshaun ilable. I suspect Mr. Russell will need a carotid duplex. 5. Consider transesophageal echocardiogram and electrocardioversion after he rec overs from the carotid endarterectomy. 6. Discontinue Plavix. 7. Continue aspirin and warfarin, with an INR target of 2.0 to 3.0. 8. Hold Coumadin for approximately 3 days prior to the carotid endarterectomy. Echocardiogram today showed normal left ventricular function, left ventricular e jection fraction 60%, normal mitral valve with mild mitral regurgitation. Follow up: Reid Welch M.D. 1 Year Thank you for allowing me to participate in TENISHA RUSSELL's care. If I can be of any further assistance, please do not hesitate to contact me. Sincerely, Reid BANSAL:siva:sol 4: 38 p.m. F: 10/12/2010 12: 40 p.m. documented in this encounter Plan of Treatment Not on filedocumented as of this encounter Visit Diagnoses Not on filedocumented in this encounter
--- OUTSIDE RECORDS SUMMARY | 2019-08-08 14:09 | XMS REPORT | Encounter Summary ---
Author Author [facility] Organization [facility] Address Unknown Phone Unavailable Care Team Providers Care Automotive General Sales Manager Name Role Phone [place] City[place] head PCP Encounter Details Care Team Description Date Type Department [facility] ProviderLars MD 09/30/2010 [facility] HISTORIC [...] Name Priority Date/Time Associated Diag nosis ECHO HISTORICAL Routine 09/30/2010 documented in this encounter Results * Echo historical (09/30/2010) Specimen Narrative Performed At Procedure Category: ECHO NEXTGEN Procedure: Echocardiogram Procedure Summary: 1. Normal left ventr icular systolic function, with an estimated ejection fraction of 60%. 2. Normal mitral valve with mild regurg itation. Compared to the previous study on 2002, the inferior and inferolateral hypokinesis is no longer noted. Procedure Note Interface, Rad Conversion - 12/24/2014 11:49 PM CDT Procedure Category: ECHO Procedure: Echocardiogram Procedure Summary: 1. Normal left ventricular systolic function, with an estimated ejection fraction of 60%. 2. Normal mitral valve with mild regurgi tation. Compared to the previous study on 09/13/2002, the inferior and inferolateral hypokinesis is no longer noted. Performing Organization Address City/State/Zipcode Ph one Number NEXTGEN documented in this encounter Visit Diagnoses Not on filedocumented in this encounter
--- OUTSIDE RECORDS SUMMARY | 2019-08-08 14:09 | XMS REPORT | Encounter Summary ---
Author Author [facility] Organization [facility] Address Unknown Phone Unavailable Care Team Providers Care Metal Bending Machine Operator Name Role Phone [place] head PCP Encounter Details Care Team Description Date Type Department Veda Puga MD [address] [facility] [address] [place] [address] [phone] 06/30/2010 [facility] HISTORIC CLINI C Visit Social [...]
--- OUTSIDE RECORDS SUMMARY | 2019-08-08 14:09 | XMS REPORT | Encounter Summary ---
Author Author [facility] Organization [facility] Address Unknown Phone Unavailable Care Team Providers Care Application Developer Name Role Phone YvonneSydni PCP Encounter Details Care Team Description Date Type Department [facility] Provider, MD Lars 10/23/2010 [facility] - Hist [facility] HISTORIC CLINI C Visit Social History [...] Date/Time Associated Diag nosis PROTHROMBIN TIME/INR Routine 10/21/2010 1:01 PM CDT documented in this encounter Results * Prothrombin Time/INR (10/21/2010 1:01 PM CDT) INR 2.90 NUCMED Comment: Lab Date: [id number] Date Coumadin/warfarin started: 20100910 Location where INR performed: Lab Lab name and contact information: Dr. Proctor([facility]), [id number], [id number] Patient Status: Diagnosis 1: Atrial fibrillation [facility] Diagnosis 2: Target INR Range: 2.0-3.0 Next Lab due: 20101104 Pending Procedure: NA Patient Instructions(comments): cont 5mg daily and recheck in 2 wk ph--patient will be stopping Coumadin October 24 until surgery october 29. Patient will restart normal dose and recheck in 1 wk.cjj Comments (General Comments) : CALL Sydni with results. [phone]. 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 Barney office [phone]/ fax [phone] Patient Notified: Yes (Citlali Wolfe) Result reviewed by: Tonja Nice Supervising provider name: Reid Tan Specimen Performing Organization Address City/State/Zipcode Ph one Number NUCMED documented in this encounter Visit Diagnoses Not on filedocumented in this encounter
--- OUTSIDE RECORDS SUMMARY | 2019-08-08 14:09 | XMS REPORT | Encounter Summary ---
Author Author [facility] Organization [facility] Address Unknown Phone Unavailable Care Team Providers Care Lift Builder Whole Name Role Phone WayneSydni head PCP Encounter Details Care Team Description Date Type Department Reid Stock MD [address] [facility] [address] [place] [address] [phone] 08/06/2010 [facility] [...]
--- OUTSIDE RECORDS SUMMARY | 2019-08-08 14:09 | XMS REPORT | Encounter Summary ---
Author Author [facility] Organization [facility] Address Unknown Phone Unavailable Care Team Providers Care Glued Wood Tester Name Role Phone [place] head PCP Encounter Details Care Team Description Date Type Department Reid Stock MD [address] [facility] [address] [place] [address] [phone] 09/04/2010 [facility] [...]
--- OUTSIDE RECORDS SUMMARY | 2019-08-08 14:09 | XMS REPORT | Encounter Summary ---
Author Author [facility] Organization [facility] Address Unknown Phone Unavailable Care Team Providers Care Disk Sander Name Role Phone [place] head PCP Encounter Details Care Team Description Date Type Department Reid Stock MD [address] [facility] [address] [place] [address] [phone] 08/05/2010 [facility] [...]
--- OUTSIDE RECORDS SUMMARY | 2019-08-08 14:09 | XMS REPORT | Encounter Summary ---
Author Author [facility] Organization [facility] Address Unknown Phone Unavailable Care Team Providers Care Inspector Subassembly Name Role Phone Sydni Russell PCP Encounter Details Care Team Description Date Type Department [facility] ProviderLars MD 09/18/2010 [facility] - Hist [place] [...] Date/Time Associated Diag nosis PROTHROMBIN TIME/INR Routine 09/15/2010 2:33 PM CDT documented in this encounter Results * Prothrombin Time/INR (09/15/2010 2:33 PM CDT) INR 1.12 NUCMED Comment: Lab Date: 20100915 Date Coumadin/warfarin started: 20100910 Location where INR performed: Lab Lab name and contact information: Dr. Proctor([facility]), [id number], [phone] Patient Status: Diagnosis 1: Atrial fibrillation [facility] Diagnosis 2: Target INR Range: 2.0-3.0 Next Lab due: 20100918 Pending Procedure: NA Patient Instructions(comments): take7. 5mg today then resume 5mg daily recheck on tuesday. 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 Barney office [phone]/ fax [phone] Patient Notified: Yes (Stacy Jaquez) Result reviewed by: Citlali Wolfe Supervising provider name: Specimen Performing Organization Address City/State/Zipcode Ph one Number NUCMED documented in this encounter Visit Diagnoses Not on filedocumented in this encounter
--- OUTSIDE RECORDS SUMMARY | 2019-08-08 14:09 | XMS REPORT | Encounter Summary ---
Author Author [facility] Organization [facility] Address Unknown Phone Unavailable Care Team Providers Care Latrine Cleaner Name Role Phone Sydni Russell PCP Encounter Details Care Team Description Date Type Department Reid Stock MD [address] [place] [address] [phone] 08/11/2010 [facility] [...] Progress Notes * Reid Stock MD - 08/11/2010 2:47 PM [facility] [place] Office [address] [place] [address] 08/12/2010 Pravin Proctor MD [facility] [place] [address] Re: STEVEN YVONNE : 1935 Chart#: [id number] Dear Dr. Proctor: This is a followup note regarding TENISHA YVONNE. He has completed his cardiac testing and I am writing to share the results with you. He had the following tests: ALT: 08/04/2010 :Alanine Aminotransferase - Alanine Aminotransferase: 16 IU/L (14-63) 25 - OH Vit :Vitamin D, 25-Hydroxy - Vitamin D 25-Hydroxy D2: <5 ng/mL () Vitamin D 25-Hydroxy D3: 41 ng/mL () Vitamin D 25-Hydroxy: 41 ng/mL (25-80) TSH: 08/04/2010 :Thyroid Stimulating Hormone - Thyroid Stimulating Hormone: 1.57 uIU/mL (0.45-4.50) CBC w/ Diff w/ Plt: 08/04/2010 :Complete Blood Count and Differential - WBC: 6.00 TH/uL (4.00-11.00) RBC: 4.99 MIL/uL (4.31-5.84) Hemoglobin: 15.6 g/dL (13.0-17.0) Hematocrit: 46 % (40-50) MCV: 92 fL (80-99) MCH: 31 pg (27-34) MCHC: 34 % (32-36) RDW: 13.5 % (9.0-14.5) Platelet Count: 141 TH/uL (140-400) MPV: 9.8 fL (9.4-12.3) % Segmented Neutrophils: 58 % (45-78) % Lymphocytes: 32 % (15-47) % Monocytes: 6 % (0-12) % Eosinophils: 4 % (0-7) % Basophils: 0 % (0-2) # Granulocytes: 3.46 TH/uL (1.70-6.80) # Lymphocytes: 1.94 TH/uL (1.00-3.30) # Monocytes: 0.37 TH/uL (0.20-0.90) # Eosinophils: 0.21 TH/uL (0.00-0.40) # Basophils: 0.02 TH/uL (0.00-0.10) PSA: 08/04/2010 :PSA Free - PSA Total: 0.9 ng/mL (0.0-4.0) PSA Free: 0.3 ng/mL () PSA Free %: 33.3 % (25-100) Potassium: 08/04/2010 :Potassium - Potassium: 4.4 MEQ/L (3.5-5.1) Magnesium: 08/04/2010 :Magnesium - Magnesium: 1.6 MEQ/L (1.4-2.0) HsCRP: 08/04/2010 :hs CRP - HS CRP: 1.03 mg/L () Hgb A1C: 08/04/2010 :Hemoglobin A1C - Hemoglobin A1C: 5.5 % (4.0-6.0) Fasting Lipid Panel: 08/04/2010 :Lipid Panel - Cholesterol: 198 mg/dL (100-200) HDL Cholesterol: 41 mg/dL (40-110) Non-HDL Cholesterol: 157 H mg/dL (0-130) Triglycerides: 50 mg/dL (0-150) LDL Cholesterol: 147 H mg/dL (0-99) Cholesterol/HDL Ratio: 4.8 H (0.0-4.5) HPP: 18 H () Fasting Blood Sugar: 08/04/2010 :Glucose - Glucose: 74 mg/dL (65-100) Creatinine: 08/04/2010 :Creatinine - Creatinine: 0.9 mg/dL (0.6-1.3) GFR Male AA: 99 () GFR Male Non-AA: 82 () Based on the above, I am recommending the following: - add Cardiotabs Red Yeast Rice 4 capsules daily - recheck fasting lipid panel in 3 months Follow up is requested as planned. These test results along with my recommendations have been communicated to KENDRA RUSSELL. I hope this information is useful to you. If you should have any qu estions or concerns, please do not hesitate to contact me. Sincerely, eRid Welch M.D. E OPERATOR documented in this encounter Plan of Treatment Not on filedocumented as of this encounter Visit Diagnoses Not on filedocumented in this encounter
--- OUTSIDE RECORDS SUMMARY | 2019-08-08 14:09 | XMS REPORT | Encounter Summary ---
Author Author [facility] Organization [facility] Address Unknown Phone Unavailable Care Team Providers Care Veneer Manufacturer Name Role Phone Sydni Russell PCP Encounter Details Care Team Description Date Type Department Jed Christiansen MD [address] [facility] [address] [place] [address] [phone] 09/23/2010 [facility] [...] Date/Time Associated Diag nosis PROTHROMBIN TIME/INR Routine 09/23/2010 2:42 PM CDT documented in this encounter Results * Prothrombin Time/INR (09/23/2010 2:42 PM CDT) INR 4.17 NUCMED Comment: Lab Date: 20100923 Date Coumadin/warfarin started: 20100910 Location where INR performed: Lab Lab name and contact information: Dr. Proctor([facility]), [id number], [phone] Patient Status: Diagnosis 1: Atrial fibrillation [facility] Diagnosis 2: Target INR Range: 2.0-3.0 Next Lab due: 20100930 Pending Procedure: NA Patient Instructions(comments): hold tonight then take 2.5mg tomorrow then cont 5mg daily and retest 1 wk ph---patients daugter notified and voiced understanding. cjj Comments (General Comments) : CALL Sydni with results. [phone]. 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 Barney office [phone]/ fax [phone] Patient Notified: Yes (Citlali Wolfe) Result reviewed by: Tonja Nice Supervising provider name: Eriberto Carrasquillo Specimen Performing Organization Address City/State/Zipcode Ph one Number NUCMED documented in this encounter Visit Diagnoses Not on filedocumented in this encounter
--- OUTSIDE RECORDS SUMMARY | 2019-08-08 14:09 | XMS REPORT | Encounter Summary ---
Author Author [facility] Organization [facility] Address Unknown Phone Unavailable Care Team Providers Care Polymerization Supervisor Name Role Phone Sydni Russell PCP Encounter Details Care Team Description Date Type Department Reid Stock MD [address] [place] [address] [phone] 10/02/2010 [facility] [...] Progress Notes * Reid Stock MD - 10/02/2010 1:25 PM CDT [place] [facility] [address] [place] [address] 10/07/2010 Pravin Proctor MD [facility] [place] [address] Re: STEVEN YVONNE : 1935 Chart#: [id number] Dear Dr. Proctor: This is a followup note regarding STEVEN YVONNE. He has completed his cardiac testing and I am writing to share the results with you. He had the following tests: Fasting Blood Sugar: 08/04/2010 :Glucose - Glucose: 74 mg/dL (65-100) Creatinine: 08/04/2010 :Creatinine - Creatinine: 0.9 mg/dL (0.6-1.3) GFR Male AA: 99 () GFR Male Non-AA: 82 () 2D echo w/ Doppler: 1. Normal left ventricular systolic function, with an estima ham ejection fraction of 60%. 2. Normal mitral valve with mild regurgitation. Co mpared to the previous study on 09/13/2002, the inferior and inferolateral hypoki nesis is no longer noted. PT/INR: 08/04/2010 :Prothrombin Time/INR - Protime: 13.9 sec (11.7-14.3) INR: 1.1 (0.9-1.1) Based on the above, I am recommending the following: - CEA scheduled with Dr. Comer Follow up is requested as needed. These test results along with my recommendations [...]
--- OUTSIDE RECORDS SUMMARY | 2019-08-08 14:09 | XMS REPORT | Encounter Summary ---
Author Author [facility] Organization [facility] Address Unknown Phone Unavailable Care Team Providers Care Director Of Medical Review Name Role Phone Sydni Russell PCP Encounter Details Care Team Description Date Type Department Deniz Taylor MD [address] [facility] [address] [place] [address] [phone] 09/18/2010 [facility] Hist [facility] HISTORIC [...] Date/Time Associated Diag nosis PROTHROMBIN TIME/INR Routine 09/18/2010 4:02 PM CDT documented in this encounter Results * Prothrombin Time/INR (09/18/2010 4:02 PM CDT) INR NA NUCMED Comment: Lab Date: 20100918 Date Coumadin/warfarin started: 20100910 Location where INR performed: Lab Lab name and contact information: Dr. Proctor([facility]), [id number], [phone] Patient Status: Diagnosis 1: Atrial fibrillation [facility] Diagnosis 2: Target INR Range: 2.0-3.0 Next Lab due: 20100919 Pending Procedure: NA Patient Instructions(comments): He didn't ck INR today. He will go to [facility] tomorrow. [phone]. Faxed order to [phone]. 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 Barney office [phone]/ fax [phone] Result reviewed by: Supervising provider name: Specimen Performing Organization Address City/State/Zipcode Ph one Number NUCMED documented in this encounter Visit Diagnoses Not on filedocumented in this encounter
--- OUTSIDE RECORDS SUMMARY | 2019-08-08 14:09 | XMS REPORT | Encounter Summary ---
Author Author [facility] Organization [facility] Address Unknown Phone Unavailable Care Team Providers Care Military Pilot Name Role Phone Sydni Russell PCP Encounter Details Care Team Description Date Type Department [facility] Provider, MD Lars 10/07/2010 [facility] - Hist [facility] HISTORIC CLINI C Visit [...] Date/Time Associated Diag nosis PROTHROMBIN TIME/INR Routine 09/29/2010 1:42 PM CDT documented in this encounter Results * Prothrombin Time/INR (09/29/2010 1:42 PM CDT) INR 2.10 NUCMED Comment: Lab Date: 20100929 Date Coumadin/warfarin started: 20100910 Location where INR performed: Lab Lab name and contact information: Dr. Proctor([facility]), [id number], [phone] Patient Status: Diagnosis 1: Atrial fibrillation [facility] Diagnosis 2: Target INR Range: 2.0-3.0 Next Lab due: 20101006 Pending Procedure: NA Patient Instructions(comments): cont 5mg daily and recheck in 1 wk. cjj--dtr v/u sd Comments (General Comments) : CALL Sydni with results. [phone]. 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 Barney office [phone]/ fax [phone] Patient Notified: Yes (Stayc Jaquez) Result reviewed by: Citlali Wolfe Supervising provider name: Eriberto Carrasquillo Specimen Performing Organization Address City/State/Zipcode Ph one Number NUCMED documented in this encounter Visit Diagnoses Not on filedocumented in this encounter
--- OUTSIDE RECORDS SUMMARY | 2019-08-08 14:09 | XMS REPORT | Encounter Summary ---
Author Author [facility] Organization [facility] Address Unknown Phone Unavailable Care Team Providers Care Track Production Engineer Name Role Phone AncramSydni head PCP Encounter Details Care Team Description Date [place] [address] [facility] [address] [place] [address] [phone] 09/28/2010 [facility] - [facility] Visit Social History Date [...]
--- OUTSIDE RECORDS SUMMARY | 2019-08-08 14:09 | XMS REPORT | Encounter Summary ---
Author Author [facility] Organization [facility] Address Unknown Phone Unavailable Care Team Providers Care Funeral Home General Manager Name Role Phone Sydni Russell PCP Encounter Details Care Team Description Date Type Department Reid Stock MD [address] [address] 08/04/2010 [facility] [...] Signs Reading Time Taken Comments Vital Sign 140/80 08/04/2010 3:21 PM LINE DIRECTOR Blood Pressure 120 08/04/2010 3:21 PM LINE DIRECTOR Pulse - - Temperature - - Respiratory Rate - - Oxygen Saturation - - Inhaled Oxygen Concentration 71.2 kg (157 lb) 08/04/2010 3:21 PM LINE DIRECTOR normal Weight 172.7 cm (5' 8") 08/04/2010 3:21 PM LINE DIRECTOR Height 23.87 08/04/2010 3:21 PM LINE DIRECTOR Body Mass Index documented in this encounter Progress Notes * Reid Stock MD - 08/04/2010 3:00 PM LINE DIRECTOR [facility] [address] [place] [address] August 04, 2010 Pravin Proctor MD [address] [place] [address] RE: TENISHA RUSSELL : 1935 Chart #: [id number] Visit provider: Reid Welch M.D. Visit location: [facility] Dear Dr. Proctor: I had the pleasure of seeing TENISHA RUSSELL in the office today at your request. He is 75 years of age and presents with the following chief complaints: periph eral vascular disease. HPI: Mr. Russell is a 75-year-old male. He has a past history of coronary disease an d underwent stent implantation approximately eight years ago. At that time, sten ts were placed to the LAD and right coronary artery. He has done well since the n until recently. He developed palpitations and was found to be in atrial fibri llation. He is not on anticoagulation other than aspirin 81 mg daily. He has als o been noted to have asymptomatic bilateral carotid disease. A CTA of the caroti ds recently showed extensive bilateral soft and hard plaques at the carotid bifu rcations. The most serious lesion was an 80% stenosis in the proximal right inte rnal carotid artery. He does not want to undergo carotid endarterectomy present ly but will consider this in the future. We discussed options including Pradaxa and warfarin. He would prefer the Pradaxa . I do not feel comfortable having him on aspirin, Plavix and Pradaxa. We will c ontinue the aspirin 81 mg daily and Pradaxa 150 mg bid. His creatinine has bee n normal. Problem List: 08/04/2010 Dyslipidemia 09/13/2002 Echo 1. Left ventricular systolic function is at the lower limits of normal, with an estimated ejection fraction of 50%. 2. Inferior and posterior wall motion abnormalities. 3. No significant valvular abnormalities. 4. No previ ous study available for comparison. Hypertension Past Surgical History: Parathyroidectomy Final Medications: Aspirin 81 Mg take 1 tablet (81MG) by oral route every day Lisinopril/hydrochlorothiazide 10-12.5mg take 1 tablet by oral route every day Pradaxa 150 Mg take 1 capsule (150MG) by oral route 2 times every day Bystolic 5 Mg take 1 tablet (5MG) by oral route every day Allergies: No Known Allergies Family History: Mother Cause of was unknown at age 65. 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 Gardening Smoking: Non-smoker Alcohol: Currently drinks weekly ROS: 12-point review of systems is negative Physical Exam: Vital Signs The patient is 5ft 8in tall, and weighs 157lbs. The BMI is 23.90. B lood pressure taken in the left arm is 140/80 mmHg in the sitting position. The pulse is 120 . The rhythm is irregular. Const The patient is a well-developed, well-nourished male. HEENT The pupils are equal and round. The patient's sclerae are clear. There i s no corneal arcus. There are no xanthelasmas noted. The patient's neck veins are flat. Thorax There is no evidence of pectus [...] to touch. There is no edema noted. M/S The patient's gait is normal. EKG: Rhythm: Atrial fibrillation with uncontrolled ventricular response rate Rate: 119 Most Recent Lipids Available for Review: Date Collected: 04/28/2010 Fasting: Total Cholesterol: 191 HDL: 46 LDL: 135 Triglycerides: 49 Ratio: 4.15 Glucose: ALT HbA1C Impression: 1. Atrial fibrillation, relatively recent onset. This appears to be intermittent . His CHADS score is 2. We will start Pradaxa. 2. Coronary disease. He should remain on aspirin 81 mg daily. He has not had a s tress test recently but does not want to undergo this currently. 3. Hypertension. Control is not ideal. 4. Dyslipidemia. He refuses to consider taking a statin. Plan: 1. Pradaxa 150 mg twice daily. 2. Aspirin 81 mg daily. 3. Red yeast rice four capsules daily (he refuses a statin). 4. Recheck lipids in three months. 5. Check baseline laboratory work. 6. Bystolic 5 mg daily to help with rate control. 7. Follow-up visit with me in one month. 8. Consider a carotid endarterectomy in the future. He refuses this presently. H e also refuses a stress MPI. Testing ordered: Description Interval 2D echo w/ Doppler First Available Follow up: Reid Welch M.D. 1 Month Thank you for allowing me to participate in TENISHA RUSSELL's care. If I can be of any further assistance, please do not hesitate to contact me. Sincerely, Redi PERDOMO/clara F: 08/10/2010 DIRECTOR documented in this encounter Plan of Treatment Not on filedocumented as of this encounter Visit Diagnoses Not on filedocumented in this encounter
--- OUTSIDE RECORDS SUMMARY | 2019-08-08 14:10 | XMS REPORT | Encounter Summary ---
Author Author [facility] Organization [facility] Address Unknown Phone Unavailable Care Team Providers Care Grocery Specialist Name Role Phone BoiseSydni head PCP Encounter Details Care Team Description Date Type Department Reid Stock MD [address] [facility] [address] [place] [address] [phone] 06/19/2010 [facility] Visit Social History Date [...]
--- OUTSIDE RECORDS SUMMARY | 2019-08-08 14:10 | XMS REPORT | Encounter Summary ---
Author Author [facility] Organization [facility] Address Unknown Phone Unavailable Care Team Providers Care Monument Installer Name Role Phone Sydni Russell PCP Encounter Details Care Team Description Date Type Department [facility] ProviderLars MD 09/14/2002 [facility] C Result Social History [...] Procedure Name Priority Date/Time Associated Diag nosis CATHETERIZATION Routine 09/14/2002 HISTORICAL documented in this encounter Results * Catheterization historical (09/14/2002) Specimen Narrative Performed At Procedure Category: Invasive NEXTGEN Procedure: PCI Procedure Summary: LM normal, left CX i s also normal. The LAD had 80% proximal stenosis with a 50% diagonal lesion. The right coronary artery was subtotally occluded with a 99% proximal stenosis. PCI with a 4 mm stent in the RCA dilating it with a 4.5 mm balloon. The proximal LAD was stented with a 3.5 mm stent. The 50% diagonal stenosis was not dilated. Procedure Note Interface, Rad Conversion - 12/24/2014 11:52 PM CDT Procedure Category: Invasive Procedure: PCI Procedure Summary: LM normal, left CX is also normal. The LAD had 80% proximal stenosis with a 50% diagonal lesion. The right coronary artery was subtotally occluded with a 99% proximal stenosis. PCI with a 4 mm stent in the RCA dilating it with a 4.5 mm balloon. The proximal LAD was st ented with a 3.5 mm stent. The 50% diagonal stenosis was not dilated. Performing Organization Address City/State/[facility] Ph one Number NEXTGEN documented in this encounter Visit Diagnoses Not on filedocumented in this encounter
--- OUTSIDE RECORDS SUMMARY | 2019-08-08 14:10 | XMS REPORT | Encounter Summary ---
Author Author [facility] Organization [facility] Address Unknown Phone Unavailable Care Team Providers Care Fudge Candy Maker Name Role Phone PCP Unavailable Encounter Details Care Team Description Date Type Department Nikolai Govea MD [address] [facility] [address] [place] [address] [phone] 09/12/[address] [facility] al - Encounter 09/14/2002 Social History Date Tobacco Use Types Packs/Day Years Used Never Assessed Sex Assigned at Date Recorded Not on file Industry Job Start Date Occupation Not on file Not on file Not on file Travel End Travel History Travel Start No recent travel history available. documented as of this encounter H&P Notes * ProviderLars MD - 08/04/2013 6:59 PM SORTER LAUNDRY ARTICLES Report w Name: TENISHA RUSSELL Attending Physician: NIKOLAI GOVEA MD Date of : 1935 CARDIOLOGY ADMIT NOTE CHIEF COMPLAINT: Chest pain. 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 For the past 6 days he has been intermittently noting chest pain. This generally occurred at rest and was associated with nausea and diaphoresis. This was described as a chest pressure that generally resolved spontaneously in a few minutes. He had an especially bad episode yesterday and presented to his local doctor in [place], [place]. An electrocardiogram was abnormal and he was transferred for cardiovascular evaluation. ALLERGIES: NONE. MEDICATIONS: Eye drops for glaucoma, Skelaxin p.r.n., aspirin 81 mg daily. 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 No tobacco, occasional alcohol in moderate doses. FAMILY HISTORY: Mother with rheumatic heart disease and congestive heart failure in her 70s. One brother suffered a myocardial infarction and . REVIEW OF SYSTEMS: Essentially unremarkable except for nausea as outlined above. His weight has been table. He is active on the farm. He does not use illicit drugs. Bowels and bladder have been stable. PHYSICAL EXAMINATION: No acute distress. Blood pressure is 125/69. Oxygen saturation on room air is 97%. Respiratory rate is 20. Temperature is 97.3, pulse is 79 and regular. Cardiac exam is normal. Pedal pulses were normal. Murmur, bruit were not audible. Lung salinas were clear. Neuro exam is grossly normal. PAST MEDICAL HISTORY: 1. Glaucoma. 2. Parathyroidectomy 2-3 years ago. This was felt to be due to radiation-induced damage. 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 3. He has been noted to have an epidural hematoma in 1994. This has apparently affected his spine, but has not left him with any residual neurologic deficits. 4. He has seasonal allergies. Resting ECG showed sinus bradycardia at 57 beats per minute with borderline left axis deviation, inverted T-waves inferiorly suggesting recent non-Q wave infarction. LABORATORY DATA: IMPRESSIONS: 1. The proposed surgical procedure with associated risks has been discussed with the patient and/or family and together we have agreed to proceed as listed. Reid Welch Jr., M.D. Cc: ER LAUNDRY ARTICLES * Provider, MD Lars - 08/04/2013 6:59 PM SORTER LAUNDRY ARTICLES Report Name: TENISHA RUSSELL MRN/Unit #: [id number] Attending Physician: NIKOLAI GOVEA MD Date of : 1935 CARDIOLOGY ADMIT NOTE CHIEF COMPLAINT: Chest pain. 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 For the past 6 days he has been intermittently noting chest pain. This generally occurred at rest and was associated with nausea and diaphoresis. This was described as a chest pressure that generally would resolve spontaneously in a few minutes. He had an especially bad episode yesterday and presented to his local doctor in [place], [place]. An electrocardiogram was abnormal and he was transferred for cardiovascular evaluation. ALLERGIES: NONE. MEDICATIONS: Eye drops for glaucoma, Skelaxin p.r.n, aspirin 81 mg daily. 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 No tobacco. Occasional alcohol in moderate doses. FAMILY HISTORY: Mother with rheumatic heart disease and congestive heart failure in her 70s. One brother suffered a myocardial infarction and . REVIEW OF SYSTEMS: Essentially unremarkable except for nausea as outlined above. Weight has been stable. He is active on the farm. He does not use illicit drugs. Bowels and bladder habits have been stable. PHYSICAL EXAMINATION: No acute distress. Blood pressure 125/69, O2 saturation on room air is 97%. Respiratory rate is 20 with temperature 97.3, pulse is 79 and regular. CARDIAC EXAM is normal. Pedal pulses are normal. Murmur, bruit were not audible. LUNG salinas were clear. NEURO EXAM grossly normal. PAST MEDICAL HISTORY: 1. Glaucoma. 2. Parathyroidectomy 2-3 years ago. This was felt to be due to radiation induced damage. 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 3. He has been noted to have an epidural hematoma in 1994. This has apparently affected his spine, but has not left him with any residual neurologic deficits. 4. He has seasonal allergies. Resting ECG showed sinus bradycardia at 57 beats per minute with borderline left axis deviation, inverted T-waves inferiorly suggesting recent non-Q wave infarction. Laboratory work showed hemoglobin 14.4, white blood cell count 6.6, creatinine is 1.0, sodium 141, potassium 3.9. Troponin is 1.9. CK-MB 2.7. IMPRESSIONS: 1. Non-Q-wave myocardial infarction-he has been experiencing unstable angina for the past 6 days. 2. Mild dyslipidemia with total cholesterol in the mid 190s. Triglycerides were normal. HDL and LDL are pending yet. 3. History of spinal hematoma 8 years ago-details are unclear. This was apparently not precipitated by trauma. 4. History of hyperparathyroidism-he underwent parathyroidectomy 2-3 years ago. 5. Glaucoma. SUGGESTIONS: 1. Cardiac catheterization-we will not perform a left ventriculogram. He asked that we minimize any radiation (he received radiation therapy to his face and neck as a young man for the treatment of acne). 2. Angiotensin-converting enzyme (J LUIS) inhibitor, statin, beta fahad, aspirin. We will also use Plavix if neurology okays this. 3. Neurology consultation to make sure he is okay to undergo anticoagulation if need be in the post angioplasty phase. 4. Check TSH and other baseline laboratory work. Reid Welch Jr., M.D. cc: ER LAUNDRY ARTICLES documented in this encounter Miscellaneous Notes * Operative Note - Avelino Carlson V - 08/04/2013 6:59 PM SORTER LAUNDRY ARTICLES Report Name: TENISHA RUSSELL MRN/Unit #: [id number] Attending Physician: NIKOLAI GOVEA MD Date of : 1935 CV LAB NUMBER: [id number] PROCEDURE: Percutaneous coronary intervention The patient was brought to the cardiovascular laboratory where the right inguinal region was prepped and draped in the usual manner and local cutaneous anesthesia obtained with 2% Xylocaine. An 8-Canadian sheath was inserted percutaneously into the right femoral artery. Bilateral selective coronary arteriography was then performed using standard angiographic catheters filming in multiple projections. Following this, we elected to proceed with coronary intervention. The coronary circulation was right dominant. In the proximal right coronary artery there was a subtotal eccentric stenosis with slightly delayed distal filling. The distal vessel had minor irregularities but no occlusive disease. The left main coronary artery was normal. The left circumflex was nondominant and free of occlusive disease. The left anterior descending coronary artery had an 80% stenosis proximally just beyond the ostium. A large diagonal branch was 50% narrowed at its origin. The distal vessels were free of occlusive disease. At this point we elected to proceed with coronary intervention. The patient received 5,000 units of heparin intravenously and was started on an infusion of Integrilin. We initially selected an 8-Canadian JR-4 guide catheter and used it to engage the right coronary artery. A 0.014 HI-Torque floppy wire was advanced into the distal vessel. The right coronary artery was treated with direct stenting using a 4.0 x 18 mm S7 stent. We post dilated the stent with a 4.5 x 15 mm Quantum balloon to 12 atmospheres of pressure. Repeat injections showed wide patency with no residual stenosis and normal runoff. We then directed our attention to the proximal LAD. We exchanged for an 8-Canadian XP 3.5 guide catheter. We then advanced a HI-Torque floppy guidewire into the distal LAD and once again performed direct stenting, this time with a 3.5 x 12 mm S7 stent. This was deployed with an inflation to 16 atmospheres of pressure. Repeat injection showed wide patency with no residual stenosis and normal runoff. At this point, the procedure was terminated and the catheter was removed but the femoral sheath was left in place and the patient was transferred to the recovery unit. CONCLUSION: 1. Two vessel coronary artery disease. 2. Successful stenting to the proximal right coronary artery. 3. Successful stenting to the proximal left anterior descending. Avelino Carlson M.D. Dictated By: cc: ER LAUNDRY ARTICLES documented in this encounter Plan of Treatment Not on filedocumented as of this encounter Procedures Comments Procedure Name Priority Date/Time Associated Diag nosis CK-MB Routine 09/14/2002 8:55 AM CDT PLATELET Routine 09/14/2002 1:50 AM CDT HEMOGLOBIN AND HEMATOCRIT Routine 09/14/2002 1:50 AM CDT ELECTROLYTES Routine 09/14/2002 1:50 AM CDT CREATININE Routine 09/14/2002 1:50 AM CDT CK-MB Routine 09/14/2002 1:50 AM CDT BLOOD UREA NITROGEN Routine 09/14/2002 1:50 AM CDT PLATELET Routine 09/13/2002 8:00 PM CDT HEMOGLOBIN AND HEMATOCRIT Routine 09/13/2002 8:00 PM CDT ACTIVATED CLOTTING TIME Routine 09/13/2002 8:00 PM CDT TROPONIN Routine 09/13/2002 10:15 AM CDT CK-MB Routine 09/13/2002 10:15 AM CDT COAGULATION SCREEN Routine 09/13/2002 4:20 AM CDT TROPONIN Routine 09/13/2002 4:20 AM CDT LIPID PANEL Routine 09/13/2002 4:20 AM CDT COMPLETE BLOOD COUNT Routine 09/13/2002 4:20 AM CDT CK-MB Routine 09/13/2002 4:20 AM CDT BASIC METABOLIC PANEL Routine 09/13/2002 4:20 AM CDT DIFFERENTIAL Routine 09/12/2002 10:05 PM CDT TROPONIN Routine 09/12/2002 10:05 PM CDT MAGNESIUM Routine 09/12/2002 10:05 PM CDT COMPREHENSIVE METABOLIC Routine 09/12/2002 PANEL 10:05 PM CDT CBC AND DIFF (MANUAL DIFF Routine 09/12/2002 IF NECESSARY) 10:05 PM CDT CK-MB Routine 09/12/2002 10:05 PM CDT XR CHEST ALL EXCEPT Routine 09/12/2002 PORTABLE 10:02 PM CDT documented in this encounter Results * CK-MB (09/14/2002 8:55 AM CDT) Only the most recent of 5 results within the time period is included. CK MB 2.3 0.0 - 5.0 NG/ML [facility] Specimen Blood Performing Organization Address [facility] one Number [id number] [phone] SUNQUEST * Hemoglobin and Hematocrit (09/14/2002 1:50 AM CDT) Only the most recent of 2 results within the time period is included. Hemoglobin 14.1 13.0 - 17.0 G/DL [facility] Hematocrit 42 40 - 50 % [facility] Specimen Blood Performing Organization Address [facility] one Number [id number] [phone] [facility] * Platelet (09/14/2002 1:50 AM CDT) Only the most recent of 2 results within the time period is included. Platelet Count 164 140 - 400 TH/UL [facility] Specimen Blood Performing Organization Address [facility] one Number [id number] [phone] [facility] * Blood Urea Nitrogen (09/14/2002 1:50 AM CDT) Blood Urea 11 5 - 20 MG/DL [facility] Nitrogen Specimen Blood Performing Organization Address [facility] one Number [id number] [phone] [facility] * Electrolytes (09/14/2002 1:50 AM CDT) Sodium 139 134 - 144 MEQ/L [facility] Potassium 4.2 3.6 - 5.0 MEQ/L [facility] Chloride 106 98 - 107 MEQ/L [facility] Carbon Dioxide 29 23 - 32 MEQ/L [facility] Anion Gap 4 3 - 15 [facility] Specimen Blood Performing Organization Address [facility] one Number [id number] [phone] [place] * Creatinine (09/14/2002 1:50 AM CDT) Creatinine 1.0 0.5 - 1.5 MG/DL [facility] Specimen Blood Performing Organization Address [facility] one Number [id number] [phone] [place] * Activated Clotting Time (09/13/2002 8:00 PM CDT) Activated 162 (H) 99 - 130 SEC [facility] Clotting Time Specimen Blood Performing Organization [facility] one Number RL [id number] [phone] [facility] * Troponin (09/13/2002 10:15 AM CDT) Only the most recent of 3 results within the time period is included. Troponin 1.25 f (H) 0.00 - 0.15 NG/ML [facility] Specimen Blood Narrative Performed At Report SUN[facility] Comments and Normal Ranges for [facility] ponent TROPONIN(NG/ML) TROPONIN VALUE INTERPRETATION 0.00 - 0.15 Negative 0.16 - 1.50 Increased car diac risk >1.50 Myocardial in farction Troponin may not become elevated until 6 to 8 hours after onset of symptoms. Performing Organization [facility] one Number RL [id number] [phone] [facility]QUEST * Basic Metabolic Panel (09/13/2002 4:20 AM CDT) Sodium 140 134 - 144 MEQ/L [facility] Potassium 3.9 3.6 - 5.0 MEQ/L [facility] Chloride 106 98 - 107 MEQ/L [facility] Carbon Dioxide 30 23 - 32 MEQ/L [facility] Anion Gap 4 3 - 15 [facility] Creatinine 1.0 0.5 - 1.5 MG/DL [facility] Blood Urea 14 5 - 20 MG/DL [facility] Nitrogen Glucose 94 65 - 110 MG/DL [facility] Calcium 8.1 (L) 8.8 - 10.5 MG/DL [facility] Specimen Blood Performing Organization [facility] one Number [id number] [phone] [facility] * Coagulation Screen (09/13/2002 4:20 AM CDT) APTT 29 21 - 34 SEC [facility] Protime 12.7 11.5 - 13.9 SEC [facility] INR 1.0 [facility] Platelet Count 166 140 - 400 TH/UL [facility] Fibrinogen 387 146 - 390 MG/DL [facility] Assay Specimen Blood Performing Organization [facility] one Number [id number] [phone] [facility] * Lipid Panel (09/13/2002 4:20 AM CDT) Cholesterol 191 <200 MG/DL [facility] Triglycerides 86 <150 MG/DL [facility] HDL Cholesterol 36 (L) >41 MG/DL [facility] LDL Cholesterol 138 (H) 0 - 99 MG/DL [facility] Cholesterol/HDL 5.3 (H) <4.5 [facility] Ratio Hours 12 [facility] Postprandial Specimen Blood Performing Organization [facility] one Number [id number] [phone] [place] * Complete Blood Count (09/13/2002 4:20 AM CDT) WBC 5.6 4.0 - 11.0 TH/UL [facility] RBC 4.42 4.31 - 5.84 MIL/UL [facility] Hemoglobin 14.4 13.0 - 17.0 G/DL [facility] Hematocrit 41 40 - 50 % [facility] MCV 92 80 - 99 FL [facility] MCH 33 27 - 34 PG [facility] MCHC 35 32 - 36 % [facility] RDW 12.2 <14.5 % [facility] Platelet Count 166 140 - 400 TH/UL [facility] Specimen Blood Performing Organization Address [facility] one Number [id number] [phone] [facility] * CBC and Diff (manual diff if necessary) (09/12/2002 10:05 PM CDT) WBC 6.3 4.0 - 11.0 TH/UL [facility] RBC 4.83 4.31 - 5.84 MIL/UL [facility] Hemoglobin 15.4 13.0 - 17.0 G/DL [facility] Hematocrit 44 40 - 50 % [facility] MCV 91 80 - 99 FL [facility] MCH 32 27 - 34 PG [facility] MCHC 35 32 - 36 % [facility] RDW 12.0 <14.5 % [facility] Platelet Count 166 140 - 400 TH/UL [facility] Specimen Blood Performing Organization Address [facility] one Number [id number] [phone] [place] * DIFFERENTIAL (09/12/2002 10:05 PM CDT) % Neutrophils 61 45 - 78 % [facility] %Lymphocytes 28 15 - 47 % [facility] %Monocytes 9 0 - 12 % [facility] %Eosinophils 1 0 - 7 % [facility] %Basophils 1 0 - 2 % [facility] # Granulocytes 3.8 1.7 - 6.8 TH/UL [facility] # Lymphocytes 1.8 1.0 - 3.3 TH/UL [facility] # Monocytes 0.6 0.2 - 0.9 TH/UL [facility] # Eosinophils 0.1 0.0 - 0.4 TH/UL [facility] # Basophils 0.1 0.0 - 0.2 TH/UL [facility] Specimen Blood Performing Organization Address [facility] one Number [id number] [place], [place] [address] [facility] * Comprehensive Metabolic Panel (09/12/2002 10:05 PM CDT) Albumin 3.8 3.6 - 4.6 G/DL [facility] Aspartate 37 20 - 50 IU/L [facility] Aminotransferas e Bilirubin Total 1.0 0.0 - 1.1 MG/DL [facility] Protein Total 7.1 6.5 - 8.2 G/DL [facility] Serum Calcium 8.5 (L) 8.8 - 10.5 MG/DL [facility] Creatinine 1.0 0.5 - 1.5 MG/DL [facility] Glucose 83 65 - 110 MG/DL [facility] Alkaline 96 40 - 125 IU/L [facility] Phosphatase Sodium 141 134 - 144 MEQ/L [facility] Potassium 3.9 3.6 - 5.0 MEQ/L [facility] Chloride 105 98 - 107 MEQ/L [facility] Carbon Dioxide 28 23 - 32 MEQ/L [facility] Blood Urea 13 5 - 20 MG/DL [facility] Nitrogen Anion Gap 8 3 - 15 [facility] Alanine 25 20 - 60 IU/L [facility] Aminotransferas e Specimen Blood Performing Organization Address [facility] one Number [id number] [phone] [facility] * Magnesium (09/12/2002 10:05 PM CDT) Pathologist [facility] Magnesium 1.7 1.4 - 2.0 MEQ/L [facility] Specimen Blood Performing Organization Address [facility] one Number [id number] [place], [place] [address] [facility] * XR Chest all except portable (09/12/2002 10:02 PM CDT) Specimen Narrative Performed At Report ABIMAELSON Name: TENISHA RUSSELL Date of : [birth year] Age: 67Y Room-Bed/Location: [address] [place] [address] Check-In #: [id number] Attending Physician: NIKOLAI Mckeon MD Admitting Diagnosis: Procedure: DX CHEST ALL EXCEPT PORTAB LE; [id number] Reason for Exam: CHEST PAIN Requested By: NIKOLAI GOVEA Exam Ordered: 09/12/2002 Judy #/Jacket #: [id number] Procedure: CHEST Exam Date/Time: 09/12/2002 22:14 Reason for Exam: Chest pain. PA and lateral images are obtained. T he heart and mediastinum are unremarkable. The diaphragms are smooth . There appears to be some pleural thickening along the left lateral chest margin. IMPRESSION: Pleural thickening. De generative bony change. Electronically Authenticated by Proxy: Baron Devi D.O. 09/13/2002 07:57:4 6 Ramin Gilmore M.D. Dictated By: T: 003 07:32:09 cc: 1 Procedure Note Interface, Rad Conversion - 08/06/2013 6:02 PM SORTER LAUNDRY ARTICLES Report Name: TENISHA RUSSELL Date of : [birth year] Age: 67Y Room-Bed/Location: [address] [place] [address] Check-In #: [id number] Attending Physician: NIKOLAI GOVEA MD Admitting Diagnosis: Procedure: DX CHEST ALL EXCEPT PORTABLE; [id number] Reason for Exam: CHEST PAIN Requested By: NIKOLAI GOVEA Exam Ordered: 09/12/2002 Judy #/Jacket #: [id number] Procedure: CHEST Exam Date/Time: 09/12/2002 22:14 Reason for Exam: Chest pain. PA and lateral images are obtained. The heart and mediastinum are unremarkable. The diaphragms are smooth. There appears to be some pleural thickening along the left lateral chest margin. IMPRESSION: Pleural thickening. Degenerative bony change. Electronically Authenticated by Proxy: Baron Devi D.O. 09/13/2002 07:57:46 Ramin Gilmore M.D. Dictated By: cc: 1 Performing Organization Address City/State/Zipcode Ph one Number NAKIA documented in this encounter Visit Diagnoses Not on filedocumented in this encounter
--- OUTSIDE RECORDS SUMMARY | 2019-08-08 14:10 | XMS REPORT | Encounter Summary ---
Author Author [facility] Organization [facility] Address Unknown Phone Unavailable Care Team Providers Care Battery Container Tester Aluminum Name Role Phone Sydni Russell PCP Encounter Details Care Team Description Date Type Department [facility] Provider, MD Lars 09/13/2002 [facility] Result Social History [...] Date/Time Associated Diag nosis ECHO HISTORICAL Routine 09/13/2002 documented in this encounter Results * Echo historical (09/13/2002) Specimen Narrative Performed At Procedure Category: ECHO NEXTGEN Procedure: Echocardiogram Procedure Summary: 1. Left ventricular systolic function is at the lower limits of normal, with an estimated ejection f raction of 50%. 2. Inferior and posterior wall motion a bnormalities. 3. No significant valvular abnormalitie s. 4. No previous study available for comp israel. Procedure Note Interface, Rad Conversion - 12/25/2014 12:46 AM CDT Procedure Category: ECHO Procedure: Echocardiogram Procedure Summary: 1. Left ventricular systolic function is at the lower limits of normal, with an estimated ejection fraction of 50%. 2. Inferior and posterior wall motion ab normalities. 3. No significant valvular abnormalities . 4. No previous study available for yusakina moore. Performing Organization Address City/State/Zipcode one Number [email or web address] documented in this encounter Visit Diagnoses Not on filedocumented in this encounter
--- OUTSIDE RECORDS SUMMARY | 2019-08-08 14:10 | XMS REPORT | Encounter Summary ---
Author Author [facility] Organization [facility] Address Unknown Phone Unavailable Care Team Providers Care Putter In Name Role Phone Sydni Russell PCP Encounter Details Care Team Description Date Type Department [facility] Provider, MD Lars 05/07/2010 [facility] Result Social History [...] Diag nosis CV US CAROTID DUPLEX Routine 05/07/2010 HISTORICAL documented in this encounter Results * CV US Carotid Duplex historical (05/07/2010) Specimen Narrative Performed At Procedure Category: Echo NEXTGEN Procedure: Carotid duplex Procedure Summary: Bilateral atheroscle rotic vascular disease most severe involving the right carotid buld and pr oximal right internal carotid artery with spectral analysis demostrating severely elevated velocity and elevated ICA/CCA ratio suggestive of greater than 80% stenosis of the proxim al right internal carotid artery. CTA neck or conventional arteriogram is rec ommended for further evaluation. Procedure Note Interface, Rad Conversion - 12/25/2014 12:23 AM CDT Procedure Category: Echo Procedure: Carotid duplex Procedure Summary: Bilateral atherosclerotic vascular disease most severe involving the right carotid buld and proximal right internal carotid artery with spectral analysis demostrating severely elevated velocity and elevated ICA/CCA ratio suggestive of greater than 80% stenosis of the proximal right internal carotid artery. CTA neck or conventional arteriogram is recommended for further evaluation. Performing Organization Address City/State/Zipcode Ph one Number NEXTGEN documented in this encounter Visit Diagnoses Not on filedocumented in this encounter
--- OUTSIDE RECORDS SUMMARY | 2019-08-08 14:10 | XMS REPORT | Encounter Summary ---
Author Author [facility] Organization [facility] Address Unknown Phone Unavailable Care Team Providers Care Head Of Academic Technology Name Role Phone MoraSydni head PCP Encounter Details Care Team Description Date Type Department [facility] Provider, MD Lars 09/13/2002 [facility] Social History Date Tobacco [...] Associated Diag nosis ECHO EJECTION FRACTION Routine 09/13/2002 HISTORICAL 1:41 PM CDT documented in this encounter Results * Echo Ejection Fraction historical (09/13/2002 1:41 PM CDT) Ejection 50Comment: Echo PROSOLV Fraction Specimen Performing Organization Address City/State/Zipcode Ph one Number PROSOLV documented in this encounter Visit Diagnoses Not on filedocumented in this encounter
== END 2019-08-07 16:15 | DRG 871 ==
LOC: EDUNIT# 07:17 → ER 07:18 → ICU 09:47 → CSD 08-07 12:41
PROVIDERS: ADMIT Internal Medicine; ATTEND Internal Medicine
DX: A41.01 Sepsis due to Methicillin susceptible Staphylococcus aureus (principal); R65.21 Severe sepsis with septic shock; J18.9 Pneumonia, unspecified organism; N39.0 Urinary tract infection, site not specified; E87.2 Acidosis; N17.9 Acute kidney failure, unspecified; J98.11 Atelectasis; F03.91 Unspecified dementia, unspecified severity, with behavioral disturbance; R64 Cachexia; I48.20 Chronic atrial fibrillation, unspecified; I42.9 Cardiomyopathy, unspecified; E87.6 Hypokalemia; Z66 Do not resuscitate; I25.10 Atherosclerotic heart disease of native coronary artery without angina pectoris; I50.9 Heart failure, unspecified; I25.2 Old myocardial infarction; E86.0 Dehydration; E83.42 Hypomagnesemia; F29 Unspecified psychosis not due to a substance or known physiological condition; F22 Delusional disorders; G20 Parkinson's disease; R41.841 Cognitive communication deficit; H40.9 Unspecified glaucoma; R13.10 Dysphagia, unspecified; K21.9 Gastro-esophageal reflux disease without esophagitis; K59.09 Other constipation; D69.6 Thrombocytopenia, unspecified; Z95.5 Presence of coronary angioplasty implant and graft; F32.9 Major depressive disorder, single episode, unspecified; Z87.820 Personal history of traumatic brain injury
CPT/HCPCS: 36415; 36569; 51702; 71045; 76937; 80048; 80053; 80202; 81000; 82150; 82962; 83605; 83690; 83735; 83880; 84100; 84132; 84484; 85007; 85025; 85027; 85610; 85730; 87040; 87077; 87081; 87088; 87186; 87804; 93005; 93041; 93306; 94640; 96374; 96375

== ENCOUNTER 2020-01-04 12:50 | Inpatient (IN) | payer MEDICARE ==
[~2020-01-04] VITALS: Ht 177.8 cm; Wt 74.2 kg
[2020-01-04] VITALS (7 sets, daily range): BP systolic 96–139; BP diastolic 45–110
[~2020-01-04 12:50] MED LIST changes: +ACET650S15 RC; +APIX5TAB PO; +CEPH250S PO; +DORZ10DR27 OU; +KETO15CR2 TP; +PROM25SU44 RC
--- NOTE | 2020-01-04 12:54 | ED Fever ---
History of Present Illness General Stated Complaint: FEVER Source: patient, EMS Exam Limitations: no limitations History of Present Illness Date Seen by Provider: Jan 04, 2020 Time Seen by Provider: 12:54 Initial Comments To ER from [facility] with reports of fever up to 101, cough. He is demented and cannot contribute to history of present illness Timing/Duration: constant Fever Quality: greater than 100.5 F Associated Symptoms: cough Allergies and Home Medications Allergies Coded Allergies: No Known Drug Allergies (Unverified , 05/08/17) Home Medications Acetaminophen 325 Mg Tablet, 650 MG PO Q4H PRN for PAIN-MILD, (Reported) TAKES 2 (325 MG) TABLETS Acetaminophen 650 Mg Supp.rect, 650 MG RC Q4H PRN for PAIN-MILD (1-4) OR TEMPATURE, (Reported) Albuterol Sulfate 2.5 Mg/3 Ml Vial.neb, 2.5 MG IH Q8H PRN for SHORTNESS OF BREATH, (Reported) Apixaban 5 Mg Tablet, 5 MG PO BID Prescribed by: SANDY CASE on 08/07/19 1431 Cephalexin 250 Mg/5 Ml Susp.recon, 10 ML PO QID Prescribed by: SANDY CASE on 08/07/19 1406 Ketoconazole 15 Gm Cream..g., 1 APPLIC TP DAILY, (Reported) APPLY TO BOTH FEET FOR TINEA Latanoprost 2.5 Ml Drops, 1 DROP OU HS, (Reported) Metoprolol Tartrate 25 Mg Tablet, 25 MG PO TID Hold for heart rate < 60. Hold for SBP < 90. Prescribed by: SANDY CASE on 08/07/19 1413 Ondansetron HCl 4 Mg Tablet, 4 MG PO Q6H PRN for NAUSEA/VOMITING-1ST LINE, (Reported) Polyethylene Glycol 3350 17 Gm Powd.pack, 17 GM PO BID PRN for CONSTIPATION-2ND LINE, (Reported) Promethazine HCl 25 Mg Supp.rect, 25 MG RC Q6H PRN for NAUSEA/VOMITING-2ND LINE, (Reported) Patient Home Medication List Home Medication List Reviewed: Yes Review of Systems Review of Systems Constitutional: see HPI, other (unable to obtain due to dementia) Past Wxjqfko-Pqmwfc-Siuwzb Hx Patient Social History 2nd Hand Smoke Exposure: No Recent Hopitalizations: No Immunizations Up To Date Tetanus Booster (TDap): Unknown Date of Pneumonia Vaccine: May 08, 2018 Date of Influenza Vaccine: Mar 06, 2019 Past Medical History Surgeries: Yes Cardiac, Coronary Stent Respiratory: Yes (WEARS HOME O2) Currently Using CPAP: No Currently Using BIPAP: No Cardiac: Yes (STENT PLACEMENT; CHRONIC ATRIAL FIBRILLATION) Hypertension Neurological: Yes (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; CONGINITIVE COMMUNICATION DEFICIT) Dementia Genitourinary: Yes (current UTI) Gastrointestinal: Yes (DYSPHAGIA) Gastroesophageal Reflux, Chronic Constipation Musculoskeletal: Yes (UNSTEADY GAIT, FALLS, GENERALIZED WEAKNESS;CONTRACTURES OF KNEES) Contracture Endocrine: Yes (hypo mag/phos/K+) HEENT: Yes Dysphagia, Glaucoma Cancer: No Psychosocial: Yes (DEMENTIA WITH BEHAVIOR DISTURBANCE AND PSYCHOSIS/DELUSIONS) Sleep Difficulties, Depression Integumentary: Yes (TINEA PEDIS) Blood Disorders: Yes (ANEMIA) Family Medical History Patient reports no known family medical history. No Pertinent Family Hx ELECTROLYE IMBALANCES Physical Exam Vital Signs - First Documented 01/04/20 12:55 Temp 36.8 Pulse 133 Resp 24 B/P (MAP) 141/72 (95) Pulse Ox 96 O2 Delivery Room Air Capillary Refill : Height: 5'7.00" Weight: 173lbs. 6.0oz. 78.787961ie; 23.00 BMI Method:Estimated General Appearance: WD/WN, no apparent distress, thin, other (frail, chronically ill) Eyes: Bilateral Eye Normal Inspection, Bilateral Eye PERRL, Bilateral Eye EOMI Respiratory: no respiratory distress, no accessory muscle use, rhonchi Cardiovascular: tachycardia, irregularly irregular, other (rate of 140 now complex irregular with atrial fibrillation on desk monitor) Gastrointestinal: normal bowel sounds, non tender Genital/Rectal: other (large scrotal hernia with normal overlying skin, palpable peristalsis within this hernia. ) Extremities: normal range of motion, non-tender Neurologic/Psychiatric: alert Skin: normal color, warm/dry Focused Exam Lactate Level 01/04/20 13:10: Lactic Acid Level 6.71*H Lactic Acid Level Laboratory Tests Test 01/04/20 13:10 Lactic Acid Level 6.71 MMOL/L (0.50-2.00) *H Procedures/Interventions Suture Size: 4-0, 5-0 Progress/Results/Core Measures Suspected Sepsis Recent Fever Within 48 Hours: Yes Infection Criteria Present: Suspected New Infection New/Unexplained Altered Menta: No Within 3hrs of presentation: Admin fluids, Admin 30ml/kg IBW due to BMI>30, Blood cultures prior to ABX's, Lactate level SIRS Temperature: Pulse: Respiratory Rate: Laboratory Tests 01/04/20 13:15: White Blood Count 11.8H Blood Pressure / Mean: 01/04/20 13:10: Lactic Acid Level 6.71*H Laboratory Tests 01/04/20 13:15: Creatinine 1.17, INR Comment 1.0, Platelet Count 143, Total Bilirubin 0.5 Results/Orders Lab Results Laboratory Tests Test 01/04/20 13:10 01/04/20 13:15 01/04/20 13:19 01/04/20 14:00 Range/Units Lactic Acid Level 6.71 *H 0.50-2.00 MMOL/L White Blood Count 11.8 H 4.3-11.0 10^3/uL Red Blood Count 4.59 4.35-5.85 10^6/uL Hemoglobin 13.4 13.3-17.7 G/DL Hematocrit 41 40-54 % Mean Corpuscular Volume 88 80-99 FL Mean Corpuscular Hemoglobin 29 25-34 PG Mean Corpuscular Hemoglobin Concent 33 32-36 G/DL Red Cell Distribution Width 15.6 H 10.0-14.5 % Platelet Count 143 130-400 10^3/uL Mean Platelet Volume 8.7 7.4-10.4 FL Neutrophils (%) (Auto) 79 H 42-75 % Lymphocytes (%) (Auto) 13 12-44 % Monocytes (%) (Auto) 8 0-12 % Eosinophils (%) (Auto) 0 0-10 % Basophils (%) (Auto) 0 0-10 % Neutrophils # (Auto) 9.3 H 1.8-7.8 X 10^3 Lymphocytes # (Auto) 1.6 1.0-4.0 X 10^3 Monocytes # (Auto) 0.9 0.0-1.0 X 10^3 Eosinophils # (Auto) 0.0 0.0-0.3 10^3/uL Basophils # (Auto) 0.0 0.0-0.1 10^3/uL Prothrombin Time 13.6 12.2-14.7 SEC INR Comment 1.0 0.8-1.4 Activated Partial Thromboplast Time 30 24-35 SEC Sodium Level 141 135-145 MMOL/L Potassium Level 4.0 3.6-5.0 MMOL/L Chloride Level 105 98-107 MMOL/L Carbon Dioxide Level 22 21-32 MMOL/L Anion Gap 14 5-14 MMOL/L Blood Urea Nitrogen 17 7-18 MG/DL Creatinine 1.17 0.60-1.30 MG/DL Estimat Glomerular Filtration Rate 59 BUN/Creatinine Ratio 15 Glucose Level 108 H 70-105 MG/DL Calcium Level 8.7 8.5-10.1 MG/DL Corrected Calcium 8.7 8.5-10.1 MG/DL Total Bilirubin 0.5 0.1-1.0 MG/DL Aspartate Amino Transf (AST/SGOT) 16 5-34 U/L Alanine Aminotransferase (ALT/SGPT) 11 0-55 U/L Alkaline Phosphatase 104 40-136 U/L B-Type Natriuretic Peptide 268.0 H <100.0 PG/ML Total Protein 7.1 6.4-8.2 GM/DL Albumin 4.0 3.2-4.5 GM/DL Procalcitonin 0.03 <0.10 NG/ML Urine Color YELLOW Urine Clarity SL CLOUDY Urine pH 6.0 5-9 Urine Specific [place] 1.020 1.016-1.022 Urine Protein TRACE H NEGATIVE Urine Glucose (UA) NEGATIVE NEGATIVE Urine Ketones NEGATIVE NEGATIVE Urine Nitrite POSITIVE H NEGATIVE Urine Bilirubin NEGATIVE NEGATIVE Urine Urobilinogen 0.2 < = 1.0 MG/DL Urine Leukocyte Esterase 3+ H NEGATIVE Urine RBC (Auto) 3+ H NEGATIVE Urine RBC 25-50 H /HPF Urine WBC >100 H /HPF Urine Squamous Epithelial Cells RARE /HPF Urine Crystals NONE /LPF Urine Bacteria MODERATE H /HPF Urine Casts NONE /LPF Urine Mucus NEGATIVE /LPF Urine Culture Indicated CULTURE PENDING My Orders Orders - TATIANA IRBY APRN Cbc With Automated Diff (01/04/20 12:53) Comprehensive Metabolic Panel (01/04/20 12:53) Blood Culture (01/04/20 12:53) Sputum Culture (01/04/20 12:53) Urinalysis (01/04/20 12:53) Urine Culture (01/04/20 12:53) Protime With Inr (01/04/20 12:53) Partial Thromboplastin Time (01/04/20 12:53) Chest 1 View, Ap/Pa Only (01/04/20 12:53) Ed Iv/Invasive Line Start (01/04/20 12:53) Ed Iv/Invasive Line Start (01/04/20 12:53) Vital Signs Adult Sepsis Patie Q15M (01/04/20 12:53) O2 (01/04/20 12:53) Remove Rings In Anticipation O (01/04/20 12:53) Lactic Acid Analyzer (01/04/20 12:53) Coronavirus Sars-Cov-2 So 2018 (01/04/20 12:53) Ns Iv 1000 Ml (Sodium Chloride 0.9%) (01/04/20 13:15) Diltiazem Drip Pre-Mix (Cardizem Drip Pr (01/04/20 13:15) Ekg Tracing (01/04/20 13:12) BNP (01/04/20 13:12) Procalcitonin (Pct) (01/04/20 13:45) Ns Iv 1000 Ml (Sodium Chloride 0.9%) (01/04/20 14:00) Ceftriaxone For Iv Use (Rocephin For I (01/04/20 14:30) Amiodarone Injection (Cordarone Injectio (01/04/20 14:45) Amiodarone Injection (Cordarone Injectio (01/04/20 14:45) Moya Cath (01/04/20 14:40) Medications Given in ED Current Medications Medications Dose Ordered Sig/Kelly Route Start Time Stop Time Status Last Admin Dose Admin Amiodarone HCl 150 mg/Dextrose 103 ml @ 600 mls/hr ONCE ONCE IV 01/04/20 14:45 01/04/20 14:55 DC 01/04/20 14:55 600 MLS/HR Ceftriaxone Sodium 1000 mg/ Sterile Water 10 ml @ 200 mls/hr ONCE ONCE IV 01/04/20 14:30 01/04/20 14:32 DC 01/04/20 14:52 200 MLS/HR Vital Signs/I&O 01/04/20 12:55 Temp 36.8 Pulse 133 Resp 24 B/P (MAP) 141/72 (95) Pulse Ox 96 O2 Delivery Room Air Capillary Refill : Progress Note : Progress Note On arrival his oxygen saturation is 96% on room air, blood pressure 108/75, heart rate 140 atrial fibrillation. 1354-heart rate down to 103 still atrial fibrillation. He is on Cardizem drip at 10 mg an hour which has reduced his blood pressure to 88/73. Will reduce the Cardizem drip rate to 5 mg per hour and given a second liter fluid bolus. Respiratory rate remained 16 with SPO2 96% room air. Departure Communication (Admissions) Time/Spoke to Admitting Phy: 15:27 1527-became hypotensive at mid 80s systolic on 5 mg an hour Cardizem. That was stopped and he was turned onto amiodarone drip per protocol. Current blood pressure 109/6. Attempted left-sided internal jugular central line placement but because of his coughing and jerking on the bed during the procedure this was aborted as risk was felt to be too high if we were to proceed. He did have a tremendous amount of fluid in the oropharynx, I would suspect aspiration. This was removed with nasotracheal suction and temporary placement of nasogastric t ube 16 [place] left nostril by me. Impression Primary Impression: Atrial fibrillation with rapid ventricular response Additional Impressions: Fever Severe sepsis Disposition: ADMITTED INPATIENT Condition: Stable Admissions Decision to Admit Reason: Admit from ER (General) Decision to Admit/Date: Jan 04, 2020 Time/Decision to Admit Time: 15:27 Departure-Patient Inst. Referrals: FÁTIMA MONTANA MD (PCP/Family) Primary Care Physician TATIANA IRBY APRN Jan 04, 2020 12:54
[2020-01-04] MEDS ORDERED: NS IV 1000 ML 1,000 ML IV SCH ×2 (13:15→14:00)
[2020-01-04] MEDS ORDERED: dilTIAZem DRIP PRE-MIX 125 ML IV SCH (13:15)
[2020-01-04 13:31] LABS: BASOPHILS % (AUTO) 0 % (0-10); EOSINOPHILS % (AUTO) 0 % (0-10); HEMATOCRIT 41 % (40-54); HEMOGLOBIN 13.4 G/DL (13.3-17.7); LYMPHOCYTES # (AUTO) 1.6 X 10^3 (1.0-4.0); LYMPHOCYTES % (AUTO) 13 % (12-44); MEAN CORPUSCULAR HEMOGLOBIN 29 PG (25-34); MEAN CORPUSCULAR HGB CONC 33 G/DL (32-36); MEAN CORPUSCULAR VOLUME 88 FL (80-99); MEAN PLATELET VOLUME 8.7 FL (7.4-10.4); MONOCYTES # (AUTO) 0.9 X 10^3 (0.0-1.0); MONOCYTES % (AUTO) 8 % (0-12); NEUTROPHILS # (AUTO) 9.3 X 10^3 (1.8-7.8); NEUTROPHILS % (AUTO) 79 % (42-75); PLATELET COUNT 143 10^3/uL (130-400); RED CELL DISTRIBUTION WIDTH 15.6 % (10.0-14.5); WHITE BLOOD COUNT 11.8 10^3/uL (4.3-11.0)
[2020-01-04 13:39] LABS: CALCIUM 8.7 MG/DL (8.5-10.1)
[2020-01-04 13:40] LABS: TOTAL PROTEIN 7.1 GM/DL (6.4-8.2)
[2020-01-04 13:41] LABS: PROTHROMBIN TIME PATIENT 13.6 SEC (12.2-14.7)
[2020-01-04 13:42] LABS: BILIRUBIN,TOTAL 0.5 MG/DL (0.1-1.0)
[2020-01-04 13:44] LABS: CREATININE SERUM 1.17 MG/DL (0.60-1.30)
--- NOTE | 2020-01-04 13:58 | Diagnostic Imaging Report ---
INDICATION: Febrile. FINDINGS: Cardiac enlargement is again noted. The lungs are well aerated. There has been clearing of left lower lobe infiltrate with left hemidiaphragm now visible. Upper lungs are clear. No evidence of pulmonary edema. IMPRESSION: Cardiomegaly. No acute infiltrates are demonstrated on today's exam. Dictated by: Dictated on workstation # [id number]
[2020-01-04 14:15] LABS: BILIRUBIN,URINE NEGATIVE (NEGATIVE); CLARITY,URINE SL CLOUDY; COLOR,URINE YELLOW; GLUCOSE, URINE (UA) NEGATIVE (NEGATIVE); KETONES,URINE NEGATIVE (NEGATIVE); LEUKOCYTE ESTERASE ,URINE 3+ (NEGATIVE); NITRITE,URINE POSITIVE (NEGATIVE); PROTEIN,URINE TRACE (NEGATIVE)
[2020-01-04 14:24] LABS: BACTERIA,URINE MODERATE /HPF; RBC,URINE 25-50 /HPF; SQUAMOUS EPITHELIAL CELL,UR RARE /HPF; WBC,URINE >100 /HPF
[2020-01-04] MEDS ORDERED: cefTRIAXone FOR IV USE 1,000 MG in WATER (STERILE) FOR INJECTION 10 ML IV ONE (14:30)
[2020-01-04] MEDS ORDERED: AMIODARONE INJECTION 150 MG in D5W 100 ML IVPB 100 ML IV ONE (14:45)
[2020-01-04] MEDS ORDERED: AMIODARONE INJECTION 450 MG in D5W IV SOLUTION (EXCEL) 250 ML IV SCH (14:45)
--- NOTE | 2020-01-04 15:14 | NUR ---
Contacted Melvina, in pharmacy, to clarify amiodarone loading dose (150mg).
--- NOTE | 2020-01-04 15:30 | NUR ---
Pt pulling at NG tube. Tube removed by Walter Barker.
--- OUTSIDE RECORDS SUMMARY | 2020-01-04 17:36 | XMS REPORT | Encounter Summary ---
Author Author Department of [facility] TENISHA rodrigues Organization Department of [facility] Address [address] [place] [phone] Phone Unavailable Support Name Relationship Address Phone Conor JOHNSON Next Of Kin [address] [place] [phone] Conor JOHNSON ECON [address] [place] [phone] Insurance Providers: All historical and current Section Date Range: From patient's date of to the date document was create d. This section includes the names of all active insurance providers for the petr christensen Insurance Provider Type of Coverage Plan Name Start of Policy Co verage End of Policy Coverage Group Number Member ID Insurance Provider's Telephone N umber Policy Rivera's Name Patient's Relationship to Policy Rivera TOMA [place] MEDICARE SUPPLEMENT Jun 06, 2014 [id number] [phone] TENISHA JOHNSON PATIENT BCBS [place] MEDICARE SUPPLEMENTAL MEDICARE SUPPLEMENT Jun 06, 2014 [id number] [phone] TENISHA JOHNSON PATIENT [place] MED[place] MEDICARE SUPPLEMENT Jun 06, 2014 [id number] [phone] JOSUE JOHNSONTON PATIENT MEDICARE (WNR) MEDICARE (M) PART A Jan 04, 1998 PART A [id number] [phone] TENISHA JOHNSON PATIENT MEDICARE (WNR) MEDICARE (M) PART B Jan 04, 1998 PART B [id number] [phone] ALEXJOSUESTEVEN PATIENT MEDICARE (WNR) MEDICARE (M) PART A Jan 04, 1998 PART A [id number] [phone] JOSUE JOHNSONTON PATIENT MEDICARE (WNR) MEDICARE (M) PART B Jan 04, 1998 PART B [id number] [phone] TENISHA JOHNSON PATIENT Selected Encounter This section includes the information on record at [place] for the Encounter. 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 Date/Time Primary/Secondary Diagnosis Diagnosis Name Provider Source Apr 24, 2019 03:50 PM PRIMARY Cerebellar stroke syndrome FÁTIMA BOLDEN [facility] Plan of Treatment: Future Appointments (+ 6 months) and Future Tests (+/- 45 day s) No Data Provided for This Section Surgical Procedures: All associated to the encounter No Data Provided for This Section Lab Results: +/- 30 days of the encounter No Data Provided for This Section Vital Signs: All taken on the encounter date No Data Provided for This Section Immunizations: All administered on the encounter date No Data Provided for This Section Social History: Smoking Status (Most current) and Tobacco Use (All prior to enco unter date) No Data Provided for This Section Advance Directives: All historical and current No Data Provided for This Section Allergies and Adverse Reactions (ADRs): All historical and current Section Date Range: From patient's date of to the date document was create d. This section includes Allergies and Adverse Reactions (ADR s) on record with [place] for the patient. The data comes from a ll [place] treatment facilities. It does not list Allergies/ADRs that were removed or entered in error. Some allergies/ADRs may be reported in t Immunization section. Allergen Event Date Event Type Reaction(s) Severity Source No Known Allergies [facility], V[facility]N 15 Medications: VA dispensed (-15 months) and Non-VA Documented (Obtained Outside A) Section Date Range: 1) prescriptions processed by a VA pharmacy in the last 15 m [facility], and 2) all medications recorded in the [place] medical record as "non-VA medic ations". Pharmacy terms refer to [place] pharmacy's work on prescriptions. VA patient s are advised to take their medications as instructed by their health care team. The data comes from all [place] treatment facilities. Glossary of Pharmacy Terms:Active = A prescription that can be filled at the local [place] pharmacy.Active: On Hold = An active prescription that will not be filled until pharmacy resolves the issue.Active: Susp = An active prescription that is not scheduled to be filled yet.Clinic Order = A medication received during a visit to a VA clinic or emergency department (currently not available).Discontinued = A prescription stopped by a VA provider. It is no longer available to be filled. = A prescription which is too old to fill. This does not refer to the expiration date of the medication in the container. Non-VA = A medication that came from someplace other than a VA pharmacy. This may be a prescription from either the VA or other providers that was filled outside the VA. Or, it may be an over the counter (OTC), herbal, dietary supplement or sample medication.Pending = This prescription order has been sent to the Pharmacy for review and is not ready yet. Medication Name and Strength Pharmacy Term Instructions Quantity Or dered Prescription Expires Prescription Number Last Dispense Date Ordering Provider Facility DIPHENHYDRAMINE HCL 25MG CAP Non-VA TAKE 1 CAPSULE BY MOUTH AT BEDTIME Non-VA Documented by: SAMMIE GUEVARA nted at: [facility] DONEPEZIL HCL 10MG TAB N on-VA TAKE ONE TABLET BY MOUTH ONCE A DAY Non-VA Documented by: SAMMIE GUEVARA nted at: [facility] DORZOLAMIDE HCL 2% SOLN,OPH Active INSTILL ONE DROP IN BOTH EYES ONCE A DAY FOR GLAUCOMA 30 Jul 26, 2020 [id number] Jul 30, 2019 [facility] LATANOPROST 0.005% SOLN,OPH Active INSTILL ONE DROP IN BOTH EYES ONCE A DAY FOR GLAUCOMA 7.5 Jul 26, 2020 [id number] Jul 30, 2019 [facility] MELATONIN 3MG CAP/TAB No n-VA TAKE 2 CAP/TAB BY MOUTH AT BEDTIME Non-VA Documented by: SAMMIE GUEVARA nted at: [facility] MEMANTINE HCL 10MG TAB N on-VA TAKE ONE TABLET BY MOUTH EVERY MORNING Non-VA Documented by: SAMMIE GUEVARA nted at: [facility] METOPROLOL TARTRATE 25MG TAB Non-VA TAKE ONE-HALF TABLET BY MOUTH TWO TIMES A DAY Non-VA Documented by: SAMMIE GUEVARA nted at: [facility] Problems (Conditions): All historical and current No Data Provided for This Section Radiology Reports: +/- 30 days of the encounter No Data Provided for This Section Pathology Reports: +/- 30 days of the encounter No Data Provided for This Section Encounter Notes: All associated encounter notes This section contains the clinical notes associated to the Encounter. Date/Time Encounter Note(s) Provider Source Apr 24, 2019 03:25 PM PHYSICAL MEDICINE REHAB CONS ULT: LOCAL TITLE: [place]-PM&RS ECONSULT STANDARD TITLE: PHYSICAL MEDICINE REHAB CONSULT DATE OF NOTE: APR 24, 2019@15:25 ENTRY DATE: APR 24, 2019@15:26:08 AUTHOR: FÁTIMA SANTOS EXP COSIGNER: URGENCY: STATUS: COMPLETED [id number] PM&RS CONSULTING PHYSICIAN: Danielle REASON FOR CONSULTATION: "chair repair" SUBJECTIVE: Patient requesting repair of a chair. IMPRESSION: 84 YO male with dementia. His family earlier this year asked for VA to provide a manual wheelchair. I presume this manual chair now is in need of repair. RECOMMENDATIONS: 1) I have placed a repair consult to [facility] for the repair. For future reference, PCP team can place repair consults as well. 2) If this Major Medical consult was not for repair of this manual wheelchair please let me know. This is an electronic consult. The patient was not seen, interviewed or examined. The recommendations are based on review of the chart. If there are unresolved questions after this consult, you may enter a regular consult or contact Dr. Santos for further recommendations. /es/ FÁTIMA SANTOS Physician Signed: 04/24/2019 15:50 FÁTIMA SANTOS [facility]
--- OUTSIDE RECORDS SUMMARY | 2020-01-04 17:36 | XMS REPORT | Encounter Summary ---
Author Author Department of [facility] TENISHA rodrigues Organization Department of [facility] Address [address] [place] [address] Phone Unavailable Support Name Relationship Address Phone Conor JOHNSON Next Of Kin [address] [place] [address] Conor JOHNSON ECON [address] [place] [address] Insurance Providers: All historical and current [...] MEDICARE SUPPLEMENTAL MEDICARE SUPPLEMENT Jun 06, 2014 [id number] [phone] TENISHA JOHNSON PATIENT BCBS [place] MEDICARE SUPPLEMENTAL MEDICARE SUPPLEMENT Jun 06, 2014 [id number] [phone] TENISHA JOHNSON PATIENT [place] MEDICARE SUPPLEMENT Jun 06, 2014 [id number] [phone] JOSUE JOHNSONTON PATIENT MEDICARE (WNR) MEDICARE (M) PART A Jan 04, 1998 PART A [id number] [phone] TENISHA JOHNSON PATIENT MEDICARE (WNR) MEDICARE (M) PART B Jan 04, 1998 PART B [id number] ALEXJOSUESTEVEN PATIENT MEDICARE (WNR) MEDICARE (M) PART A Jan 04, 1998 PART A [id number] [phone] JOSUE JOHNSONTON PATIENT MEDICARE (WNR) MEDICARE (M) PART B Jan 04, 1998 PART B [id number] [phone] TENISHA JOHNSON PATIENT Selected Encounter This section includes the information on record at [place] for the Encounter. Date/Time Encounter Type Encounter Description Reason Provider Source Jul 27, 2019 08:12 AM Outpatient Encounter CLINICAL PHARMACY ICD -10-CM Z71.89 Other specified counseling with Provider Comments: Counseling,Other Spec GINNA SANTOS [facility] IHE Encounter Template Text not used by [place] Assessments - Encounter Diagnoses This section includes the primary and secondary diag noses documented for the Encounter. Date/Time Primary/Secondary Diagnosis Diagnosis Name Provider Source Jul 27, 2019 08:15 AM PRIMARY Other specified counseling GINNA SANTOS [facility] Plan of Treatment: Future Appointments (+ [...] Adverse Reactions (ADR s) on record with [place] for the patient. The data comes from a ll [place] treatment facilities. It does not list Allergies/ADRs that were removed or entered in error. Some allergies/ADRs may be reported in t Immunization section. Allergen Event Date Event Type Reaction(s) Severity Source No Known Allergies [facility], V[facility] 15 Medications: VA dispensed (-15 months) and Non-VA Documented (Obtained Outside A) Section Date Range: 1) prescriptions processed by a VA pharmacy in the last 15 m [facility], and 2) all medications recorded in the [place] medical record as "non-VA medic ations". Pharmacy terms refer to [place] pharmacy's work on prescriptions. VA patient s are advised to take their medications as instructed by their health care team. The data comes from all [place] treatment facilities. Glossary of Pharmacy Terms:Active = A prescription that can be filled at the local [place] pharmacy.Active: On Hold = An active prescription [...] DAY FOR GLAUCOMA 30 Jul 26, 2020 [id number] Jul 30, 2019 [facility] LATANOPROST 0.005% SOLN,OPH Active INSTILL ONE DROP IN BOTH EYES ONCE A DAY FOR GLAUCOMA 7.5 Jul 26, 2020 [id number] Jul 30, 2019 [facility] [...] Non-VA Documented by: SAMMIE GUEVARA nted at: [facility] Problems (Conditions): All historical and current No Data Provided for This Section Radiology Reports: +/- 30 days of the encounter No Data Provided for This Section Pathology Reports: +/- 30 days of the encounter No Data Provided for This Section Encounter Notes: All associated encounter notes This section contains the clinical notes associated to the Encounter. Date/Time Encounter Note(s) Provider Source Jul 27, 2019 08:12 AM PHARMACY MEDICATION MGT CONS ULT: LOCAL TITLE: [place]-PRIOR APPROVAL DRUG REQUESTS STANDARD TITLE: PHARMACY MEDICATION MGT CONSULT DATE OF NOTE: JUL 27, 2019@08:12 ENTRY DATE: JUL 27, 2019@08:13:02 AUTHOR: GINNA SANTOS COSIGNER: URGENCY: STATUS: COMPLETED The medical record has been reviewed with regard to this prior authorization drug request. Medication requested: BRINZOLAMIDE 1% OPH SUSP Medication indication: Glaucoma Medical history relevant to this request: with glaucoma and request for brinzolamide; formulary preferred carbonic anhydrase inhibitor per [facility] PBM is dorzolamide. No documented reason to exclude use of formulary preferred agent. The request does not meet criteria - The preferred alternative therapeutic option(s) have not been exhausted Time spent on request: 15 minutes PBM PharmD Pharmacotherapy Rem V11: Convert to preferred VA medication Plan: brinzolamide to dorzolamide /es/ E. Zenobia SantosD, AE-C, BCACP, CDE Clinical Pharmacist Specialist Signed: 07/27/2019 08:15 GINNA SANTOS [facility]
--- OUTSIDE RECORDS SUMMARY | 2020-01-04 17:36 | XMS REPORT | Encounter Summary ---
Author Author Department of [facility] TENISHA rodrigues Organization [facility] Address [address] [place] [address] Phone Unavailable Support Name Relationship Address Phone Conor JOHNSON Next Of Kin [address] [place] [address] Conor JOHNSON [address] [address] Insurance Providers: All historical and current [...] Name Patient's Relationship to Policy [place] SU[place] MEDICARE SUPPLEMENT Jun 06, 2014 [id number] [phone] TENISHA JOHNSON PATIENT BCBS R[place] MEDICARE SUPPLEMENTAL MEDICARE SUPPLEMENT Jun 06, 2014 [id number] [phone] TENISHA JOHNSON PATIENT [place] MEDIG[place] PLAN F MEDICARE SUPPLEMENT Jun 06, 2014 [id number] [phone] TENISHA JOHNSON PATIENT MEDICARE (WNR) MEDICARE (M) PART A Jan 04, 1998 PART A [id number] [phone] TENISHA JOHNSON PATIENT MEDICARE (WNR) MEDICARE (M) PART B Jan 04, 1998 PART B [id number] [phone] TENISHA JOHNSON PATIENT MEDICARE (WNR) MEDICARE (M) PART A Jan 04, 1998 PART A [id number] [phone] TENISHA JOHNSON PATIENT MEDICARE (WNR) MEDICARE (M) PART B Jan 04, 1998 PART B [id number] [phone] TENISHA JOHNSON PATIENT Selected Encounter This section includes the information on record at [place] for the Encounter. Date/Time Encounter Type Encounter Description Reason Provider Source Jul 20, 2019 09:36 AM Outpatient Encounter ADMIN PAT ACTIVTIES (DORCAS PAVON) [facility] IHE Encounter Template Text not used by VA Assessments - Encounter Diagnoses No Data Provided for This Section Plan of Treatment: Future Appointments (+ 6 [...] Use (All prior to enco unter date) This section includes the most current, and the historical, smoking and tobacco- related health factors from the VA facility where the Encounter took place. Current Smoking Status This section includes the most current smoking, or tobacco -related health factor, from the VA facility where the Encounter took place. Date/Time Current Smoking Status Comment Facility Jul 09, 2016 10:59 AM NON-TOBACCO USER [facility] Advance Directives: All historical and current No Data Provided for This Section Allergies and Adverse Reactions (ADRs): All historical and current Section Date Range: From patient's date of to the date document was create d. This section includes Allergies and Adverse Reactions (ADR s) on record with VA for the patient. The data comes from a ll [place] treatment facilities. It does not list Allergies/ADRs that were removed or entered in error. Some allergies/ADRs may be reported in t he Immunization section. Allergen Event Date Event Type Reaction(s) Severity Source No Known Allergies [facility], [facility] 15 Medications: VA dispensed (-15 months) and Non-VA Documented (Obtained Outside V A) Section Date Range: 1) prescriptions processed by a VA pharmacy in the last 15 m ont, and 2) all medications recorded in the [place] medical record as "non-VA medic ations". Pharmacy terms refer to [place] pharmacy's work on prescriptions. VA patient s are advised to take their medications as instructed by their health care team. The data comes from all [place] treatment facilities. Glossary of Pharmacy Terms:Active = A prescription that can be filled at the local [place] pharmacy.Active: On Hold = An active prescription [...] DAY FOR GLAUCOMA 30 Jul 26, 2020 [id number] Jul 30, 2019 [facility]MIE GUEVARA [facility] LATANOPROST 0.005% SOLN,OPH Active INSTILL ONE DROP IN BOTH EYES ONCE A DAY FOR GLAUCOMA 7.5 Jul 26, 2020 [id number] Jul 30, 2019 [facility]E GUE[facility] [...] by: SAMMIE GUEVARA nted at: [facility] Problems (Conditions): All historical and current No Data Provided for This Section Radiology Reports: +/- 30 days of the encounter No Data Provided for This Section Pathology Reports: +/- 30 days of the encounter No Data Provided for This Section Encounter Notes: All associated encounter notes This section contains the clinical notes associated to the Encounter. Date/Time Encounter Note(s) Provider Source Jul 20, 2019 09:36 AM ADMINISTRATIVE NOTE: LOCAL TITLE: [place]-[facility]MIN [facility] STANDARD TITLE: ADMINISTRATIVE NOTE DATE OF NOTE: JUL 20, 2019@09:36 ENTRY DATE: JUL 20, 2019@09:37:02 AUTHOR: CHEN MCDONOUGH EXP COSIGNER: URGENCY: STATUS: COMPLETED [facility] Administrative Note: RECORDS RECEIVED TODAY by: Fax Nature of report:rx for azopt eye drops Date(s) of record(s):07/16/2019 Sending republican:Wisam Hernandez MD /yuridia/ CHEN FISH Signed: 07/20/2019 09:37 CHEN MCDONOUGH [facility]
--- OUTSIDE RECORDS SUMMARY | 2020-01-04 17:36 | XMS REPORT | Continuity of Care Document ---
[facility] Address Unknown Phone Unavailable Care Team Providers Care Custom Framing Specialist Name Role Phone [facility] Unavailable Unavailable Problems Combined list of all problems from all Department of Defense and [facility] facilities. It does not include entries that were removed or entered in error. Problem Status Onset Date Problem Type Date of Resolution Comments Source ICD-10-CM Z71.89 Other specified certified substance abuse counselor ing with Provider Comments: Counseling,Other Spec active Diagnosis 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 Medications Combined list of all outpatient medications recorded within the last 15 months b y all Department of Defense and Veterans Affairs facilities, and also all patien t-reported medications. Medication Details Route Status Patient Instructions Prescription Expires Prescript ion Number Last Dispense Date Ordering Pr ovider Order Date Source DIPHENHYDRAMINE HCL 25MG CAP T COMPA 1 CAPSULE BY MOUTH AT BEDTIME SAMMIE VALDEZ 07/09/2016 [facility] DONEPEZIL HCL 10MG TAB TAKE ON E TABLET BY MOUTH ONCE A DAY ACTIVE SAMMIE GUEVARA 07/09/2016 [facility] DORZOLAMIDE HCL 2% SOLN,OPH IN STILL ONE DROP IN BOTH EYES ONCE A DAY FOR GLAUCOMA ACTIVE 07/26/2020 [id number] 07/30/2019 SAMMIE GUEVARA 07/30/2019 [facility] LATANOPROST 0.005% SOLN,OPH IN STILL ONE DROP IN BOTH EYES ONCE A DAY FOR GLAUCOMA ACTIVE 07/26/2020 [id number] 07/30/2019 SAMMIE GUEVARA 07/30/2019 [facility] MELATONIN 3MG CAP/TAB TAKE 2 C AP/TAB BY MOUTH AT BEDTIME ACTIVE SAMMIE GUEVARA 07/09/2016 [facility] MEMANTINE HCL 10MG TAB TAKE ON E TABLET BY MOUTH EVERY MORNING ACTIVE SAMMIE GUEVARA 07/09/2016 [facility] METOPROLOL TARTRATE 25MG TAB T COMPA ONE-HALF TABLET BY MOUTH TWO TIMES A DAY ACTIVE SAMMIE GUEVARA 07/09/2016 [facility] Allergies, Adverse Reactions, Alerts No Known Medication Allergies Immunizations Combined list of: 1) all immunizations on record at all [facility] ies, and 2) all available immunizations on record at Department of Defense (Do D) facilities. Some immunizations on record at [facility] may not be included. Immunization Series Date Given Administered By Site Reaction Lot Number CVX Code Drug Promotion Officer Status Comments Source PNEUMOCOCCAL CONJUGATE PCV 13 05/06/2016 133 completed K U med [facility], [facility] 15 INFLUENZA, UNSPECIFIED FORMULATION 03/06/2016 88 completed [facility] 15 Results No Data Provided for This Section Vital Signs No Data Provided for This Section Encounters Combined list of encounters at [facility] of [facility] and[facility]or [facility] [facility] for the last 15 months. Not all [place] inpatient encounters are included. The incl uded entries comply with the patient's data sharing authorizations. Location Location Details Encounter Type Encounter Number Reason For Visit Attending Provider ADM Date DC Date Status Disposition Source OFFICE CON SULTATION [id number] ICD-10 -CM G46.4 Cerebellar stroke syndrome with Provider Comments: Cerebellar Stroke Syndrome FÁTIMA MIKE 04/24/2019 [facility] Outpatient Encounter [id number] ICD-10 -CM Z99.3 Dependence on wheelchair with Provider Comments: Dependence on Wheelchair QUENTIN JOSE 07/04/2019 [facility] Outpatient Encounter [id number] _MAPID :endReason2 07/20/2019 [facility] Outpatient Encounter [id number] ICD-10 -CM Z71.89 Other specified counseling with Provider Comments: Counseling,Other Spec GINNA TY 07/27/2019 [facility] Procedures No Data Provided for This Section Social History Combined list of available smoking, tobacco, and other social history on record at Department of Defense and/or Veterans Affairs facilities. The included entrie s comply with the patient's data sharing authorizations. Social History Type Response Date Comment Source Tobacco smoking status NHIS NON-TOBACCO USER 07/09/2016 [facility] Assessment and Plan No Data Provided for This Section Plan of Care No Data Provided for This Section Family History No Data Provided for This Section Advance Directives No Data Provided for This Section Functional Status No Data Provided for This Section
--- OUTSIDE RECORDS SUMMARY | 2020-01-04 17:36 | XMS REPORT ---
Author Author [facility] TENISHA rodrigues Organization [facility] Address [address] [place] [address] Phone Unavailable Support Name Relationship Address Phone Conor JOHNSON Next Of Kin [address] [place] [address] Conor JOHNSON ECON [address] [place] [address] Insurance Providers: All historical and current [...] MEDICARE SUPPLEMENTAL MEDICARE SUPPLEMENT Jun 06, 2014 [id number] TENISHA JOHNSON PATIENT BCBS ROD MEDICARE SUPPLEMENTAL MEDICARE SUPPLEMENT Jun 06, 2014 [id number] [phone] TENIHSA JOHNSON PATIENT [place] MED[place]AN F MEDICARE SUPPLEMENT Jun 06, 2014 [id number] TEINSHA JOHNSON PATIENT MEDICARE (WNR) MEDICARE (M) PART A Jan 04, 1998 PART A [id number] [phone] TENISHA JOHNSON PATIENT MEDICARE (WNR) MEDICARE (M) PART B Jan 04, 1998 PART B [id number] [phone] TENISHA JOHNSON PATIENT MEDICARE (WNR) MEDICARE (M) PART A Jan 04, 1998 PART A [id number] TENISHA JOHNSON PATIENT MEDICARE (WNR) MEDICARE (M) PART B Jan 04, 1998 PART B [id number] [phone] TENISHA JOHNSON PATIENT Selected Encounter This section includes the information on record at [place] for the Encounter. Date/Time Encounter Type Encounter Description Reason Provider Source Jul 04, 2019 09:00 AM Outpatient Encounter ADMIN PAT ACTIVTIES ( [place]) ICD-10-CM Z99.3 Dependence on wheelchair with Provider Comments: Dependence on Wheelchair QUENTIN JOSE [facility] IHE Encounter Template Text not used by VA Assessments - Encounter Diagnoses This section includes the primary and secondary diag noses documented for the Encounter. Date/Time Primary/Secondary Diagnosis Diagnosis Name Provider Source Jul 04, 2019 09:42 AM PRIMARY Dependence on wheelchair QUENTIN VILCHIS [facility] Plan of Treatment: Future Appointments (+ 6 [...] Adverse Reactions (ADR s) on record with [place] for the patient. The data comes from a ll [place] treatment facilities. It does not list Allergies/ADRs that were removed or entered in error. Some allergies/ADRs may be reported in t Immunization section. Allergen Event Date Event Type Reaction(s) Severity Source No Known Allergies [facility], V[facility]N 15 Medications: VA dispensed (-15 months) and Non-VA Documented (Obtained Outside A) Section Date Range: 1) prescriptions processed by a [place] pharmacy in the last 15 m ont, and 2) all medications recorded in the [place] medical record as "non-VA medic ations". Pharmacy terms refer to [place] pharmacy's work on prescriptions. VA patient s are advised to take their medications as instructed by their health care team. The data comes from all [place] treatment facilities. Glossary of Pharmacy Terms:Active = A prescription that can be filled at the local [place] pharmacy.Active: On Hold = An active prescription that will not be filled until pharmacy resolves the issue.Active: Susp = An active prescription that is not scheduled to be filled yet.Clinic Order = A medication received during a visit to a [place] clinic or emergency department (currently not available).Discontinued [...] DAY FOR GLAUCOMA 30 Jul 26, 2020 [id number] Jul 30, 2019 [facility] LATANOPROST 0.005% SOLN,OPH Active INSTILL ONE DROP IN BOTH EYES ONCE A DAY FOR GLAUCOMA 7.5 Jul 26, 2020 [id number] Jul 30, 2019 [facility] [...] Non-VA Documented by: SAMMIE GUEVARA nted at: [facility] Problems (Conditions): All historical and current No Data Provided for This Section Radiology Reports: +/- 30 days of the encounter No Data Provided for This Section Pathology Reports: +/- 30 days of the encounter No Data Provided for This Section Encounter Notes: All associated encounter notes This section contains the clinical notes associated to the Encounter. Date/Time Encounter Note(s) Provider Source Jul 04, 2019 09:00 AM BRUSH MACHINE SETTER NOT E: LOCAL TITLE: [place]-PACT SOCIAL WORK CASE MANAGEMENT STANDARD TITLE: BRUSH MACHINE SETTER NOTE DATE OF NOTE: JUL 04, 2019@09:00 ENTRY DATE: JUL 04, 2019@09:32:03 AUTHOR: QUENTIN JOSE COSIGNER: URGENCY: STATUS: COMPLETED SW received a phone call from the 's . reports the lives in the [facility] in [place]. The reports the has a reclining wheelchair that [place] uses at the [place]. The reports the handle on the reclining wheelchair does not lock the wheelchair in the reclining position. The reports the handle needs to be repair or replace. reports if the wheelchair can't recline, the 's feet will drag on the [place] floors. The asks for a repair of the wheelchair by [employer] [place] [employer] [facility] [place]. SW informed her that this will assist with her needs. SW informed her when this SW received a message from the [facility]. This SW spoke with [employer] about the issues. SW informed her that this SW has already place a prosthetics repair consult for the 's wheelchair. acknowledged understanding. has no other concerns. Plans: SW placed consult to [facility] for repair of wheelchair. SW will remain available per requests from 's family. /yuridia/ QUENTIN JOSE EXCHANGE TROUBLE SHOOTER Signed: 07/04/2019 09:41 QUENTIN JOSE [facility]
--- OUTSIDE RECORDS SUMMARY | 2020-01-04 17:37 | XMS REPORT | Encounter Summary ---
Author Author [facility] Organization [facility] Address Unknown Phone Unavailable Care Team Providers Care Central Supply Aide Name Role Phone Pravin Proctor PCP Encounter Details Care Team Description Date Type Department Doyle, Default Authenticator [address] [place] [address] 06/19/2016 [facility] Informat ion Management [address] [place] [address] Social History Date Tobacco Use Types Packs/Day [...]
--- OUTSIDE RECORDS SUMMARY | 2020-01-04 17:37 | XMS REPORT | Clinical Summary ---
Author Author [facility] Organization [facility] Address Unknown Phone Unavailable Care Team Providers Care Paramedical Aide Name Role Phone Pravin Proctor PCP Allergies [...] 36.3 C (97.4 F) 04/12/2013 1:17 PM SCHEDULING COORDINATOR Temperature - - Respiratory Rate - - [...] Risk Assessment # 1998 Influenza Vaccine (#1) 2020 Results Not on filefrom Last 3 Months Insurance Type Payer Benefit Subscriber ID Effective Phone Address Plan / Dates Group Medicare MEDICARE MEDICARE xxxxxxxxxx 1998-P [place] PART A B [facility] OUT OF xxxxxxxxxxxx 4-P [facility] Azeem Russell Personal/F Self 1935 [address] [place] (Home) [place] [id number] Advance Directives For more information, please contact: [phone] Patient Marine Habitat Resource Specialist Explanation Type Date Recorded Advance Directives and Living Will Power of Etl Database Developer
--- OUTSIDE RECORDS SUMMARY | 2020-01-04 17:37 | XMS REPORT | Clinical Summary ---
Author Author [facility] Organization [facility] Address Unknown Phone Unavailable Care Team Providers Care Clothing Supervisor Name Role Phone Pravin Proctor MD PCP Source Comments Some departments are not documenting in the electronic medical record. If you d o not see the information that you expected, contact Release of Information in doctors hospital [employer] Information Management department at [phone] for further assistan ce in locating additional records.[facility] Allergies No Known Allergies Medications End Date [...] Comments Vital Sign 130/82 05/24/2016 12:11 PM PHLEBOTOMIST LAB ASSISTANT Blood Pressure 99 05/24/2016 12:11 PM PHLEBOTOMIST LAB ASSISTANT Pulse 36.6 C (97.8 F) 05/24/2016 12:11 PM PHLEBOTOMIST LAB ASSISTANT Temperature - - Respiratory Rate 96% 05/24/2016 12:11 PM PHLEBOTOMIST LAB ASSISTANT Oxygen Saturation - - Inhaled Oxygen Concentration 67.6 kg (149 lb 0.5 oz) 05/19/2016 9:15 PM PHLEBOTOMIST LAB ASSISTANT Weight 172.7 cm (5' 8") 05/19/2016 9:15 PM PHLEBOTOMIST LAB ASSISTANT Height 22.66 05/19/2016 9:15 PM PHLEBOTOMIST LAB ASSISTANT Body Mass Index Plan of Treatment Health Maintenance Due Date Last Done Comments MEDICARE ANNUAL WELLNESS 1935 VISIT DTAP/TDAP VACCINES (1 - 1951 Tdap) PHYSICAL (COMPREHENSIVE) 1953 EXAM SHINGLES RECOMBINANT 1983 VACCINE (1 of 2) INFLUENZA VACCINE 03/06/2020 PNEUMONIA (PPSV23) Completed 05/24/2016 VACCINE Results Not on filefrom Last 3 Months Insurance Type Payer Benefit Subscriber ID Effective Phone Address Plan / Dates Group Medicare MEDICARE MEDICARE xxxxxxxxxx 1998-P PART A AND resent B Medicare BCBS ROD BCBS xxxxxxxxxxxx 2015-P SUPPLEMENT resent [phone] Advance Directives Patient Pick And Shovel Man Explanation Type Date Recorded Advance 05/19/2016 7:42 [...]
--- OUTSIDE RECORDS SUMMARY | 2020-01-04 17:38 | XMS REPORT | Encounter Summary ---
Author Author [facility] Organization [facility] Address Unknown Phone Unavailable Care Team Providers Care Job Molder Name Role Phone Pravin Proctor PCP Encounter Details Care Team Description Date Type Department Doyle, Default Authenticator [address] [place] [address] 06/19/2016 Formerly named [facility] Informat ion Management [address] [place] [address] Social History Date Tobacco Use Types Packs/Day [...]
--- OUTSIDE RECORDS SUMMARY | 2020-01-04 17:38 | XMS REPORT | Encounter Summary ---
Author Author [facility] Organization [facility] Address Unknown Phone Unavailable Care Team Providers Care After School Program Assistant Name Role Phone QuinterSydni head PCP Encounter Details Care Team Description Date Type Department Reid Stock MD [address] [facility] [address] [place] [address] [phone] 12/27/2014 [facility] [...]
--- OUTSIDE RECORDS SUMMARY | 2020-01-04 17:38 | XMS REPORT | Encounter Summary ---
Author Author [facility] Organization [facility] Address Unknown Phone Unavailable Care Team Providers Care Professional Services Specialist Name Role Phone Pravin Proctor PCP Encounter Details Care Team Description Date Type Department Doyle, Default Authenticator [address] [place] [address] 06/19/2016 [facility] Informat ion Management [address] [place] [address] Social History Date Tobacco Use Types Packs/Day [...]
--- OUTSIDE RECORDS SUMMARY | 2020-01-04 17:38 | XMS REPORT | Encounter Summary ---
Author Author [facility] Organization [facility] Address Unknown Phone Unavailable Care Team Providers Care Silk Finisher Name Role Phone Pravin Proctor PCP Encounter Details Care Team Description Date Type Department Shayy Davis RN 01/12/2016 Abstract [facility] [address] [facility] [address] [place] [address] Social History Date Tobacco Use Types Packs/Day [...]
--- OUTSIDE RECORDS SUMMARY | 2020-01-04 17:38 | XMS REPORT | Encounter Summary ---
Author Author [facility] Organization [facility] Address Unknown Phone Unavailable Care Team Providers Care Chicken Cleaner Name Role Phone YvonneSydni head PCP Encounter Details Care Team Description Date Type Department Reid Stock MD [address] [place] [address] [phone] 02/24/2015 Documentation [facility] [address] [place] [address] Social History Date Tobacco Use Types Packs/Day [...]
--- OUTSIDE RECORDS SUMMARY | 2020-01-04 17:38 | XMS REPORT | Encounter Summary ---
Author Author [facility] Organization [facility] Address Unknown Phone Unavailable Care Team Providers Care Digital Production Manager Name Role Phone Pravin Proctor PCP Reason for Referral * Diagnostic Imaging (Routine) Referred By Contact Referred To Contact Status Reason Specialty Diagnoses / Procedures Reid Stock MD [address] [facility] [address] [place] [address] Closed Diagnoses Atrial fibrillation, unspecified type (HCC) P rocedures Electrocardiogram (ECG) Encounter Details Care Team Description Date Type Department Aliyah Daugherty RN Atrial fibrillation, unspecified type (H CC) (Primary Dx) 04/01/2016 Orders Only [facility] [address] [facility] [address] [place] [address] Social History Date Tobacco Use Types Packs/Day [...]
--- OUTSIDE RECORDS SUMMARY | 2020-01-04 17:38 | XMS REPORT | Encounter Summary ---
Author Author [facility] Organization [facility] Address Unknown Phone Unavailable Care Team Providers Care Process Manager Name Role Phone Pravin Proctor PCP Encounter Details Care Team Description Date Type Department Reid Stock MD [address] [place], [place] [id number] 12/31/2015 Documentation [facility] [address] [place] [address] Social History Date Tobacco Use Types Packs/Day [...] Blood * Comprehensive Metabolic Panel (12/31/2015) Pathologist [facility] Alk Phos Total 59 Albumin Serum 4.1 [...] Diff (manual diff if necessary) (12/31/2015) Pathologist [facility] RBC 4.69 Hematology Comments WBC 5.61 Hemoglobin [...] Blood * Thyroid Stimulating Hormone (12/31/2015) Pathologist [facility] Thyroid 1.64 0.41 - 5.90 uIU/mL Stimulating Hormone Specimen Blood * Glucose (12/31/2015) Glucose 114 mg/dL Specimen Blood * Hemoglobin A1C (12/31/2015) HEMOGLOBIN A1C 5.6 5.6 Specimen Blood documented in this encounter Visit Diagnoses Not on filedocumented in this encounter
--- OUTSIDE RECORDS SUMMARY | 2020-01-04 17:38 | XMS REPORT | Encounter Summary ---
Author Author [facility] Organization [facility] Address Unknown Phone Unavailable Care Team Providers Care Medical Policy Specialist Name Role Phone Pravin Proctor PCP Encounter Details Care Team Description Date Type Department Emergency, PhysicianMD 06/19/2016 Emergency [facility] [address] [place] [address] Social History Date Tobacco Use Types Packs/Day [...]
--- OUTSIDE RECORDS SUMMARY | 2020-01-04 17:38 | XMS REPORT | Encounter Summary ---
Author Author [facility] Organization [facility] Address Unknown Phone Unavailable Care Team Providers Care Ski Lift Operator Name Role Phone Pravin Proctor PCP Reason for Referral * Diagnostic Imaging (Routine) Referred By Contact Referred To Contact Status Reason Specialty Diagnoses / Procedures Katya Stock MD [address] [facility] [address] [place] [address] Closed Diagnoses Atrial fibrillation, unspecified P rocedures Electrocardiogram (ECG) Reason for Visit * Reason Comments Coronary Artery Disease Atrial fibrillation weight loss Encounter Details Care Team Description Date Type Department Katya Stock MD [address] [facility] [address] [place] [address] [phone] Post PTCA (Primary Dx); Atrial fibrillation, unspecified; Alzheimer's disease; Essential hypertension; Atherosclerosis of [place] coronary artery without angina pectoris; Right-sided carotid artery disease (HCC); Anticoagulant long-term use 01/16/2016 Office Visit [facility] [address] [facility] [address] [place], [place] [address] Social History Date Tobacco Use Types Packs/Day [...] Stock MD - 01/16/2016 2:12 PM CDT [facility] Appointment Date: 01/16/2016 Pravin Proctor MD [facility] [address] RE: Tenisha Russell : 1935 Visit provider: [...] unspecified Alzheimer's disease Essential hypertension Atherosclerosis of [place] coronary artery without angina pectoris Right-sided carotid artery disease Anticoagulant long-term use Post PTCA Yes Plan: Cont current meds No further testing needed now Defer Urine Culture to PCP. Cont Xarelto Thank you for allowing me to participate in [facility]. If I can be of any further assistance, please do not hesitate to contact me. Sincerely, Katya Stock MD documented in this encounter Miscellaneous Notes * Addendum Note - Jessie Doyle RN - 01/16/2016 3:19 PM CDT Addended [...] CDT) Specimen Narrative Performed At [facility] Test Date: 2016-01-16 Pat Name: TENISHA PROVIDENCE Department: [facility] Room: Gender: Male Collaborating Supervising Physician: [id number] : 1935 Requested By: KATYA JAVED Order Number: [id number] Reading MD: Katya Welch Measurements Intervals [place] Rate: 111 P: ME: QRS: -3 QRSD: 84 T: 68 QT: 352 QTc: 479 Interpretive Statements ATRIAL FIBRILLATION, V-RATE 72-135 PAIRED VENTRICULAR PREMATURE COMPLEXES CONSIDER ANTEROSEPTAL INFARCT BORDERLINE PROLONGED QT INTERVAL No previous ECG available for compariso n Electronically Signed On 01-21-2016 15:3 6:50 CDT by Katya Welch Procedure Note Interface, External Ris In - 01/21/2016 3:36 PM CDT [facility] Test Date: 2016-01-16 Pat [facility]: [facility] Department: [facility] Room: Gender: Male Collaborating Supervising Physician: [id number] : 1935 Requested By: KATYA JAVED Order Number: [id number] Reading MD: Katya Welch Measurements Intervals [place] Rate: 111 P: ME: QRS: -3 QRSD: 84 T: 68 QT: [...] Essential hypertension Unspecified essential hypertension Atherosclerosis of [place]kw[place] coronary sage ry without angina pectoris Right-sided carotid artery disease (HCC ) Anticoagulant long-term use Encounter for long-term (current) use o f anticoagulants Post PTCA Postsurgical percutaneous transluminal coronary angioplasty status documented in this encounter
--- OUTSIDE RECORDS SUMMARY | 2020-01-04 17:38 | XMS REPORT | Encounter Summary ---
Author Author [facility] Organization [facility] Address Unknown Phone Unavailable Care Team Providers Care Hands Hanger Name Role Phone Sydni Russell PCP Encounter Details Care Team Description [place] [address] [place] [address] [phone] 12/27/2014 [facility] [...] Stock MD - 12/27/2014 4:13 PM CDT [place] Office [address] [place] [address] 12/31/[address] [facility] [place] [address] Re: TENISHA ALEX : 1935 Chart#: [id number] Dear Dr. Proctor: This is a followup [...]
--- OUTSIDE RECORDS SUMMARY | 2020-01-04 17:38 | XMS REPORT | Encounter Summary ---
Author Author [facility] Organization [facility] Address Unknown Phone Unavailable Care Team Providers Care Tool Keeper Name Role Phone Pravin Proctor PCP Encounter Details Care Team Description Date Type Department Doyle, Default Authenticator [address] [place] [address] 06/19/2016 [facility] Informat ion Management [address] [place] [address] Social History Date Tobacco Use Types Packs/Day [...]
--- OUTSIDE RECORDS SUMMARY | 2020-01-04 17:38 | XMS REPORT | Encounter Summary ---
Author Author [facility] Organization [facility] Address Unknown Phone Unavailable Care Team Providers Care Seed Service Advisor Name Role Phone Sydni Russell PCP Encounter Details Care Team Description Date Type Department Reid Stock MD [address] [place] [address] [phone] 12/27/2014 [facility] [...] Stock MD - 12/27/2014 11:00 AM CDT [place] Office [address] [place] [address] 12/27/2014 Pravin Proctor MD [facility] [place] [address] Re: TENISHA ALEX : 1935 Chart#: [id number] Dear Dr. Proctor: This is a followup [...]
--- OUTSIDE RECORDS SUMMARY | 2020-01-04 17:38 | XMS REPORT | Encounter Summary ---
Author Author [facility] Organization [facility] Address Unknown Phone Unavailable Care Team Providers Care Medical Records Field Technician Name Role Phone Pravin Proctor PCP Reason for Referral * Diagnostic Imaging (Routine) Referred By Contact Referred To Contact Status Reason Specialty Diagnoses / Procedures Katya Stock MD [address] [place] [address] [facility] [address] [place] [address] Closed Cardiology Diagnoses Carotid artery stenosis, unspecified laterality P rocedures CV US Carotid Duplex bilat Reason for Visit * Diagnostic Imaging (Routine) Referred By Contact Referred To Contact Status Reason Specialty Diagnoses / Procedures Katya Stock MD [address] [place] [address] [facility] Cv Ultrasound [address] [place] [address] Closed Cardiology Diagnoses Carotid artery stenosis, unspecified laterality P rocedures CV US Carotid Duplex bilat Encounter Details Care Team Description Date Type Department Katya Stock MD [address] [place] [address] [phone] Carotid artery stenosis, unspecified lat erality 01/16/2016 [facility] [address] [address] Social History Date Tobacco Use Types Packs/Day [...] Name: TENISHA RUSSELL Date: 01/16/2016 13:33 Chart# [id number] : 1935 Location: [facility] OP Sono: russ bell Age: 80 [...] Name: TENISHA RUSSELL Date: 01/16/2016 13:33 Chart# [id number] : 1935 Location: [facility] OP Sono: stephanie Age: 80 Gender: M [...]
--- OUTSIDE RECORDS SUMMARY | 2020-01-04 17:38 | XMS REPORT | Encounter Summary ---
Author Author [facility] Organization [facility] Address Unknown Phone Unavailable Care Team Providers Care Assistant Professor Of Philosophy Name Role Phone Sydni Russell PCP Encounter Details Care Team Description Date Type Department Reid Stock MD 43[address] [facility] [address] [place], [place] [id number] [facility] [address] [place] [address] Social History Date Tobacco Use Types Packs/Day [...] Blood Urea 14 7 - 26 mg/dL [facility] Specimen Performing Organization Address [facility] one Number [address] [phone] LABORATORIES * Creatinine (12/26/2014 3:13 PM CDT) Creatinine 1.0 0.6 - 1.3 mg/dL [facility] eGFR Male AA 87Comment: Chronic Kidney 60 - 200 [facility] Disease less than 60 REGIONAL mL/min/1.73 sq.m Kidney LABORATORIES failure less than 15 mL/min/1.73 sq.m eGFR Male 72Comment: Chronic Kidney 60 - 200 [facility] Non-AA Disease less than 60 REGIONAL mL/min/1.73 sq.m Kidney LABORATORIES failure less than 15 mL/min/1.73 sq.m Specimen Performing Organization Address [facility] one Number [facility] [address] [place] [phone] LABORATORIES * Prothrombin Time/INR (12/26/2014 3:13 PM CDT) Protime 22.9 (H) 11.4 - 15.0 sec [facility] INR 2.1 (H) 0.8 - 1.2 [facility] Specimen Performing Organization Address [facility] Ph one Number [facility] [address] [place] [address] LABORATORIES documented in this encounter Visit Diagnoses Not on filedocumented in this encounter
--- OUTSIDE RECORDS SUMMARY | 2020-01-04 17:38 | XMS REPORT | Encounter Summary ---
Author Author [facility] Organization [facility] Address Unknown Phone Unavailable Care Team Providers Care Undercover Agent Name Role Phone Pravin Proctor PCP Encounter Details Care Team Description Date Type Department Georgette Leger MA 01/23/2016 Documentation [facility] [address] [facility] [address] [place] [address] Social History Date Tobacco Use Types Packs/Day [...]
--- OUTSIDE RECORDS SUMMARY | 2020-01-04 17:38 | XMS REPORT | Encounter Summary ---
Author Author [facility] Organization [facility] Address Unknown Phone Unavailable Care Team Providers Care Flash Drier Operator Name Role Phone Pravin Proctor PCP Encounter Details Care Team Description Date Type Department Reid Stock MD [address] [place] [address] [phone] 11/19/2015 Documentation [facility] [address] [place] [address] Social History Date Tobacco Use Types Packs/Day Years Used Never Assessed Sex Assigned at Date Recorded Not on file Industry Job Start Date Occupation Not on file Not on file Not on file Travel End Travel History Travel Start No recent travel history available. documented as of this encounter Progress Notes * Sydni Dumont - 11/19/2015 10:32 AM CDT 11/18 scheduled annual at [facility] 01/11 with pts dtrSydni; PCP seen & mailed lab order; no hosp or ins chg documented in this encounter Plan of Treatment Not on filedocumented as of this encounter Visit Diagnoses Not on filedocumented in this encounter
--- OUTSIDE RECORDS SUMMARY | 2020-01-04 17:38 | XMS REPORT | Encounter Summary ---
Author Author [facility] Organization [facility] Address Unknown Phone Unavailable Care Team Providers Care Signing Agent Name Role Phone Pravin Proctor PCP Reason for Visit * Reason Comments Xarelto Encounter Details Care Team Description Date Type Department Dwight Veloz LPN Xarelto 06/10/2016 Telephone [facility] [address] [facility] [address] [place] [address] Social History Date Tobacco Use Types Packs/Day [...] Josy Lino RN - 06/14/2016 2:22 PM SUPERINTENDENT TRANSPORTATION MD Dwight Quinteros LPN 3 days ago Make sure this rec about me suggesting he not be on any warfarin or NOACs. Bu t instead take asa 81 mg daily. I spoke with his daughter Sydni, but please pas s this along to his PCP Pravin Proctor too. (Routing comment) Called Dr. Proctor's office at [phone] and spoke to Anderson. There is not a emilia se available and dr. Proctor is with patients. She requested a fax. [phone] . Generated letter and sent to PCP. RINTENDENT TRANSPORTATION * Telephone Encounter - Reid Stock MD - 06/11/2016 6:14 PM SUPERINTENDENT TRANSPORTATION I spoke with Sydni his daughter; stay off Xarelto and all other OACs. RINTENDENT TRANSPORTATION * Telephone Encounter - Dwight Veloz LPN - 06/10/2016 10:58 AM SUPERINTENDENT TRANSPORTATION Patient's daughter Sydni called and said the patient has been falling more late ly. Patient had a fall 4 weeks ago and has been off of the Xarelto since the fal l due to a subdural hematoma. The patient is scheduled for a CAT scan tomorrow. Sydni would like O to call her @[phone] and or the PCP Pravin Proctor @ to discuss if the patient should be on any blood thinners due to having the A-Fib. JHO, Patient's daughter would like for you to call her and or the PCP to discuss treatment for A-fib. RINTENDENT TRANSPORTATION documented in this encounter Plan of Treatment Not on filedocumented as of this encounter Visit Diagnoses Not on filedocumented in this encounter
--- OUTSIDE RECORDS SUMMARY | 2020-01-04 17:38 | XMS REPORT | Encounter Summary ---
Author Author [facility] Organization [facility] Address Unknown Phone Unavailable Care Team Providers Care Marker Machine Name Role Phone Sydni Russell PCP Encounter Details Care Team Description Date Type Department Reid Stock MD [address] [place] [phone] 12/26/2014 [facility] [...] Stock MD - 12/26/2014 2:00 PM CDT [place] [facility] [address] [place], [place] [phone] Imaging Orders 12/26/2014 2:00 PM RE: TENISHA RUSSELL : 1935 Chart: [id number] Address: [address] [place], [place] [id number] Work Phone: Primary Insurance: MEDICARE Height: 5ft 8 Weight: 169.80 BMI: 25.8 Orders this visit: Test Type Test Desc Test Reason Test Location Interval EKG EKG Today EP Event recorder - auto trigger looping bradycardia [place] [facility] First Availabl e Diagnosis: [address] Carotid Occlusion/Stenosis without infarction 4359 TIA V5861 Mcc use - Anti-coag V7281 Screening for Pre-op cv exam 97824 Bradycardia 71679 Abnl EKG Final Medications: Brand Generic Dose [...] Stock MD - 12/26/2014 2:00 PM CDT [place] [facility] [address] [place] [address] December 26, 2014 Pravin Proctor MD [address] [place] [address] RE: TENISHA RUSSELL : 1935 Chart #: [id number] Visit provider: Reid Welch M.D. [facility]: I had the pleasure of seeing TENISHA RUSSELL in the office today. He is 79 years of age and presents with the following chief complaints: coronary artery diseas e. HPI: The patient is a very pleasant 79-year-old male with dementia and inte rmittent atrial fibrillation on anticoagulation with warfarin. He presented to [facility] for followup. The patient was accompanied [...]
--- OUTSIDE RECORDS SUMMARY | 2020-01-04 17:38 | XMS REPORT | Encounter Summary ---
Author Author [facility] Organization [facility] Address Unknown Phone Unavailable Care Team Providers Care Health Education Director Name Role Phone Pravin Proctor PCP Reason for Referral * Diagnostic Imaging (Routine) Referred By Contact Referred To Contact Status Reason Specialty Diagnoses / Procedures Katya Stock MD [address] [place] [address] [facility] Cv Ultrasound [address] [place] [address] Closed Cardiology Diagnoses Carotid artery stenosis, unspecified laterality P rocedures CV US Carotid Duplex bilat Reason for Visit * Reason Comments carotid doppler requests order. Encounter Details Care Team Description Date Type Department Tanna Boggs RN (requests order.) 11/19/2015 Telephone [facility] [address] [place], [place] [id number] Social History Date Tobacco Use Types Packs/Day [...] t 01/12/16 office visit. Routed message to [facility]. She would like call back [phone]. documented in this encounter Plan of Treatment [...] Name: TENISHA RUSSELL Date: 01/16/2016 13:33 Chart# [id number] : 1935 Location: [facility] OP Sono: russ bell Age: 80 Gender: [...] Name: TENISHA RUSSELL Date: 01/16/2016 13:33 Chart# [id number] : 1935 Location: [facility] OP Sono: maria teresayolette Age: 80 Gender: [...]
--- OUTSIDE RECORDS SUMMARY | 2020-01-04 17:38 | XMS REPORT | Encounter Summary ---
Author Author [facility] Organization [facility] Address Unknown Phone Unavailable Care Team Providers Care Assistant Track And Field Coach Name Role Phone Pravin Proctor PCP Encounter Details Care Team Description Date Type Department Doyle, Default Authenticator [address] [place] [address] 06/19/2016 [facility] Informat ion Management [address] [place] [address] Social History Date Tobacco Use Types Packs/Day [...]
--- OUTSIDE RECORDS SUMMARY | 2020-01-04 17:38 | XMS REPORT | Encounter Summary ---
Author Author [facility] Organization [facility] Address Unknown Phone Unavailable Care Team Providers Care Application Operations Engineer Name Role Phone Pravin Proctor PCP Reason for Visit * Reason Comments Medication Refill Encounter Details Care Team Description Date Type Department Josy Lino RN Medication Refill 04/26/2016 Telephone [facility] [address] [facility] [address] [place] [address] Social History Date Tobacco Use Types Packs/Day [...] Josy Lino RN - 04/27/2016 8:43 AM SENIOR ELECTRICAL CONTROLS ENGINEER Mailed rx and lab order for BMP OR ELECTRICAL CONTROLS ENGINEER * Telephone Encounter - Josy Lino RN - 04/26/2016 10:39 AM SENIOR ELECTRICAL CONTROLS ENGINEER Patients calling [facility] cardiovascular [facility] I called her back and said that the only rx we provide would be xarelto. She v/u and states she would like a 90 day rx. I explained that we r equire blood work every 6 months. She v/u. Placed xarelto Rx for JHO signature. OR ELECTRICAL CONTROLS ENGINEER documented in this encounter Plan of Treatment Order Schedule Name Type Priority Associated Diag noses Expected: 06/26/2016, Expires: 7 Basic Metabolic Panel Lab Routine Chronic anticoagulation documented as of this encounter Visit Diagnoses Diagnosis Chronic anticoagulation Encounter for long-term (current) use o f anticoagulants documented in this encounter
--- OUTSIDE RECORDS SUMMARY | 2020-01-04 17:39 | XMS REPORT | Encounter Summary ---
Author Author [facility] Organization [facility] Address Unknown Phone Unavailable Care Team Providers Care Top Precipitator Operator Name Role Phone Sydni Russell PCP Encounter Details Care Team Description Date Type Department Yo Roberts MD [address] [facility] [address] [place] [address] [phone] 09/19/2014 [facility] Hist [facility] HISTORIC [...] and contact information: Iris waddell/ Dr. Proctor([facility]), [phone], [phone] Patient Status: Diagnosis 1: Atrial fibrillation [facility] Diagnosis 2: Target INR Range: 2.0-3.0 Next Lab due: [id number] Pending Procedure: NA Patient Instructions(comments): IM--- cont 3.5mg daily ck in 4 wk--Sydni v/u sd Comments (General Comments) : CALL Sydni with results. [phone] patient daughter patient is a pharm/sd Dr. Barney office [phone]/ fax [phone] Patient Notified: Yes (Stacy Jaquez) Result reviewed by: Addie Mata Supervising provider name: Specimen Performing Organization Address City/State/Zipcode Ph one Number [facility] documented in this encounter Visit Diagnoses Not on filedocumented in this encounter
--- OUTSIDE RECORDS SUMMARY | 2020-01-04 17:39 | XMS REPORT | Encounter Summary ---
Author Author [facility] Organization [facility] Address Unknown Phone Unavailable Care Team Providers Care Inpatient Coder Name Role Phone Yvonne Sydni PCP Encounter Details Care Team Description Date Type Department Thi Kelly RN ANP no forwarding address 12/19/2014 [facility] - Hist [facility] HISTORIC [...]
--- OUTSIDE RECORDS SUMMARY | 2020-01-04 17:39 | XMS REPORT | Encounter Summary ---
Author Author [facility] Organization [facility] Address Unknown Phone Unavailable Care Team Providers Care Welder Apprentice Arc Name Role Phone Sydni Russell PCP Encounter Details Care Team Description Date Type Department Bacilio Liriano MD [address] [facility] [address] [place], [place] [address] 12/25/2013 [facility] - Hist [facility] HISTORIC [...] contact information: Iris 4 wkmariaelena waddell/ Dr. Proctor([facility]), [phone], [phone] Patient Status: Diagnosis 1: Atrial fibrillation [facility] Diagnosis 2: Target INR Range: 2.0-3.0 Next Lab due: [id number] Pending Procedure: NA Patient Instructions(comments): IM--- cont 3.5mg daily ck in 4 wk/// dtr v/u-jcm Comments (General Comments) : CALL Sydni with results. [phone] patient daughter patient is a pharm/sd Dr. Barney office [phone]/ fax [phone] Patient Notified: Yes (Sena Francisco) Result reviewed by: Stacy Jaquez Supervising provider name: Elio Sumner Specimen Performing Organization Address City/State/Zipcode Ph one Number [facility] documented in this encounter Visit Diagnoses Not on filedocumented in this encounter
--- OUTSIDE RECORDS SUMMARY | 2020-01-04 17:39 | XMS REPORT | Encounter Summary ---
Author Author [facility] Organization [facility] Address Unknown Phone Unavailable Care Team Providers Care Audio Visual Production Specialist Name Role Phone Arely Russell PCP Encounter Details Care Team Description Date Type Department Yo Roberts MD [address] [facility] [address] [place] [address] [phone] 03/25/2014 [facility] [...] and contact information: Iris waddell/ Dr. Proctor([facility]), [phone], [phone] Patient Status: Diagnosis 1: Atrial fibrillation [facility] Diagnosis 2: Target INR Range: 2.0-3.0 Next Lab due: [id number] Pending Procedure: NA Patient Instructions(comments): IM-- cont 3.5mg daily ck in 4wk-- arely v/u---sw Comments (General Comments) : CALL Arely with results. [phone] patient daughter patient is a pharm/sd Dr. Barney office [phone]/ fax [phone] Patient Notified: Yes (Addie Mata) Result reviewed by: Addie Mata Supervising provider name: Yaw Finnegan Specimen Performing Organization Address City/State/Zipcode Ph one Number [facility] documented in this encounter Visit Diagnoses Not on filedocumented in this encounter
--- OUTSIDE RECORDS SUMMARY | 2020-01-04 17:39 | XMS REPORT | Encounter Summary ---
Author Author [facility] Organization [facility] Address Unknown Phone Unavailable Care Team Providers Care Glass Lathe Operator Name Role Phone Sydni Russell PCP Encounter Details Care Team Description Date Type Department Justice Cerrato MD [address] [facility] [address] [place], [place] [id number] 03/06/2014 [facility] [...] 4 wks siri waddell/ Dr. Proctor([facility]), [id number], [phone] Patient Status: Diagnosis 1: Atrial fibrillation JH Diagnosis 2: Target INR Range: 2.0-3.0 Next Lab due: 20140403 Pending Procedure: NA Patient Instructions(comments): IM--- cont 3.5mg daily ck in 4 wk--- Sydni v/u sd Comments (General Comments) : CALL Sydni with results. [phone] patient daughter patient is a pharm/sd Dr. Barney office [phone]/ fax [phone] Patient Notified: Yes (Stacy Jaquez) Result reviewed by: Stacy Jaquez Supervising provider name: Bacilio Liriano Specimen Performing Organization Address City/State/Zipcode Ph one Number NUCMED documented in this encounter Visit Diagnoses Not on filedocumented in this encounter
--- OUTSIDE RECORDS SUMMARY | 2020-01-04 17:39 | XMS REPORT | Encounter Summary ---
Author Author [facility] Organization [facility] Address Unknown Phone Unavailable Care Team Providers Care Ice Skater Name Role Phone Sydni Russell PCP Encounter Details Care Team Description [place] [address] [facility] [address] [place] [address] [phone] 06/10/2014 [facility] - Hist [facility] HISTORIC CLINI C Visit Social [...] nosis PROTHROMBIN TIME/INR Routine 06/11/2014 11:49 AM ELECTRONICS ENGINEERING MANAGER documented in this encounter Results * Prothrombin Time/INR (06/11/2014 11:49 AM ELECTRONICS ENGINEERING MANAGER) INR NA NUCMED Comment: Lab Date: 20140610 Date Coumadin/warfarin started: 20100910 Location where INR performed: Lab Lab name and contact information: Iris Welch wkmariaelena waddell/ Dr. Proctor([facility]), [phone], [phone] Patient Status: Diagnosis 1: Atrial fibrillation JHO Diagnosis 2: Target INR Range: 2.0-3.0 Next Lab due: 20140610 Pending Procedure: NA Patient Instructions(comments): none Comments (General Comments) : CALL Sydni with results. [phone] patient daughter patient is a pharm/sd Dr. Barney office [phone]/ fax [phone] Patient Notified: Yes (Dalia Naylor) Result reviewed by: Tonja Nice Supervising provider name: Eriberto Michaud Specimen Performing Organization Address City/State/Zipcode Ph one Number NUCMED documented in this encounter Visit Diagnoses Not on filedocumented in this encounter
--- OUTSIDE RECORDS SUMMARY | 2020-01-04 17:39 | XMS REPORT | Encounter Summary ---
Author Author [facility] Organization [facility] Address Unknown Phone Unavailable Care Team Providers Care Senior Talent Acquisition Specialist Name Role Phone [place] PCP Encounter Details Care Team Description Date Type Department Reid Stock MD [address] [facility] [address] [place] [address] [phone] 12/25/2014 [facility] [...]
--- OUTSIDE RECORDS SUMMARY | 2020-01-04 17:39 | XMS REPORT | Encounter Summary ---
Author Author [facility] Organization [facility] Address Unknown Phone Unavailable Care Team Providers Care Smocker Name Role Phone Sydni Russell PCP Encounter Details Care Team Description Date Type Department Reid Stock MD [address] [place] [phone] 11/05/2014 [facility] HISTORIC CLINI [...] Stock MD - 11/05/2014 11:31 AM CDT [place] [facility] [address] [place] [address] [id number] Imaging Orders 11/05/2014 11:31 AM RE: TENISHA RUSSELL : 1935 Chart: [id number] Address: [address] [place], [place] [id number] Work Phone: Primary Insurance: MEDICARE Height: 5ft 8 Weight: BMI: Orders this visit: Test Type Test Desc Test Reason Test Location Interval Echo Carotid duplex +carotid disease [place] [facility] Before Next Visit Diagnosis: 16786 Carotid Occlusion/Stenosis without infarction 4359 TIA V5861 Crystal Grinder use - Anti-coag V7281 Screening for Pre-op [...]
--- OUTSIDE RECORDS SUMMARY | 2020-01-04 17:39 | XMS REPORT | Encounter Summary ---
Author Author [facility] Organization [facility] Address Unknown Phone Unavailable Care Team Providers Care Senior Receptionist Name Role Phone Sydni Russell PCP Encounter Details Care Team Description Date Type Department Yo Roberts MD [address] [facility] [address] [place] [address] [phone] 11/01/2014 [facility]ORIC CLINI [...] and contact information: Iris waddell/ Dr. Proctor([facility]), [id number], [phone] Patient Status: Diagnosis 1: Atrial fibrillation JH Diagnosis 2: Target INR Range: 2.0-3.0 Next Lab due: 20141128 Pending Procedure: NA Patient Instructions(comments): IM-- cont 3.5mg daily ck in 4 wk---Sydni v/u sd Comments (General Comments) : CALL Sydni with results. [phone] patient daughter patient is a pharm/sd Dr. Barney office [phone]/ fax [phone] Patient Notified: Yes (Stacy Jaquez) Result reviewed by: Addie Mata Supervising provider name: Ian Lema Specimen Performing Organization Address City/State/Zipcode Ph one Number NUCMED documented in this encounter Visit Diagnoses Not on filedocumented in this encounter
--- OUTSIDE RECORDS SUMMARY | 2020-01-04 17:39 | XMS REPORT | Encounter Summary ---
Author Author [facility] Organization [facility] Address Unknown Phone Unavailable Care Team Providers Care Edge Cutter Name Role Phone YvonneSydni head PCP Reason for Referral * Diagnostic Imaging (Routine) Referred By Contact Referred To Contact Status Reason Specialty Diagnoses / Procedures Katya Stock MD [address] [facility] [address] [place] [address] Closed Diagnoses Occlusion and stenosis of carotid artery without mention of cerebral infarction Unspecified transient cerebral ischemia [facility] (current) use of anticoagulants Pre-operative cardiovascular examination P rocedures CV US Carotid Duplex bilat Reason for Visit * Diagnostic Imaging (Routine) Referred By Contact Referred To Contact Status Reason Specialty Diagnoses / Procedures Katya Stock MD [address] [facility] [address] [place] [address] Closed Diagnoses Occlusion and stenosis of carotid artery without mention of cerebral infarction Unspecified transient cerebral ischemia [facility] (current) use of anticoagulants Pre-operative cardiovascular examination P rocedures CV US Carotid Duplex bilat Encounter Details Care Team Description Date Type Department Occlusion and stenosis of ca rotid artery without mention of cerebral infarction; Unspecified transient cerebral ischemia; 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 Moderate atherosclerotic plaque with no evidence for a hemodynamically significant stenosis in the right internal caroti d artery. 2. Both vertebral arteries are pat ent with antegrade flow. Wander Gayle M.D. 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
--- OUTSIDE RECORDS SUMMARY | 2020-01-04 17:39 | XMS REPORT | Encounter Summary ---
Author Author [facility] Organization [facility] Address Unknown Phone Unavailable Care Team Providers Care Milk Processing Worker Name Role Phone Sydni Russell PCP Encounter Details Care Team Description Date Type Department Wander Gayle MD [address] [facility] [address] [place] [address] [phone] 12/20/2014 [facility] [...] information: Iris 4 wks siri waddell/ Dr. Proctor([facility]), [id number], [phone] Patient Status: Diagnosis 1: Atrial fibrillation JHO Diagnosis 2: Target INR Range: 2.0-3.0 Next Lab due: 20150116 Pending Procedure: NA Patient Instructions(comments): IM---cont 3.5mg daily ck in 4 wks--Sydni vu/filipe Comments (General Comments) : CALL Sydni with results. [phone] patient daughter patient is a pharm/sd Dr. Barney office [phone]/ fax [phone] Patient Notified: Yes (Frannie Hare) Result reviewed by: Frannie Hare Supervising provider name: Elio Sumner Specimen Performing Organization Address City/State/Zipcode Ph one Number NUCMED documented in this encounter Visit Diagnoses Not on filedocumented in this encounter
--- OUTSIDE RECORDS SUMMARY | 2020-01-04 17:39 | XMS REPORT | Encounter Summary ---
Author Author [facility] Organization [facility] Address Unknown Phone Unavailable Care Team Providers Care Uniform Cap Operator Name Role Phone Sydni Russell PCP Encounter Details Care Team Description Date Type Department Yo Roberts MD [address] [facility] [address] [place] [address] [phone] 11/14/2014 [facility] [...] and contact information: Iris waddell/ Dr. Proctor([facility]), [id number], [phone] Patient Status: Diagnosis 1: Atrial fibrillation JH Diagnosis 2: Target INR Range: 2.0-3.0 Next Lab due: 20141212 Pending Procedure: NA Patient Instructions(comments): IM-- cont 3.5mg daily ck in 4 wk---pts vu/no ans Sydni #/dh Comments (General Comments) : CALL Sydni with results. [phone] patient daughter patient is a pharm/sd Dr. Barney office [phone]/ fax [phone] Patient Notified: Yes (Frannie Hare) Result reviewed by: Addie Mata Supervising provider name: Eva Nicole Specimen Performing Organization Address City/State/Zipcode Ph one Number NUCMED documented in this encounter Visit Diagnoses Not on filedocumented in this encounter
--- OUTSIDE RECORDS SUMMARY | 2020-01-04 17:39 | XMS REPORT | Encounter Summary ---
Author Author [facility] Organization [facility] Address Unknown Phone Unavailable Care Team Providers Care Flight Communications Officer Name Role Phone Sydni Russell PCP Encounter Details Care Team Description Date Type Department Yo Roberts MD [address] [facility] [address] [place] [address] [phone] 07/23/2014 [facility] - Hist [facility] HISTORIC CLINI C Visit Social History [...] nosis PROTHROMBIN TIME/INR Routine 07/23/2014 4:01 PM MANAGER VAN documented in this encounter Results * Prothrombin Time/INR (07/23/2014 4:01 PM MANAGER VAN) INR 2.41 NUCMED Comment: Lab Date: 20140723 Date Coumadin/warfarin started: 20100910 Location where INR performed: Lab Lab name and contact information: Iris waddell/ Dr. Proctor([facility]), [id number], [phone] Patient Status: Diagnosis 1: Atrial fibrillation [facility] Diagnosis 2: Target INR Range: 2.0-3.0 Next Lab due: 20140820 Pending Procedure: NA Patient Instructions(comments): IM--- cont 3.5mg daily ck in 4 wk---pt dtr v/u Comments (General Comments) : CALL Sdyni with results. [phone] patient daughter patient is a pharm/sd Dr. Barney office [phone]/ fax [phone] Patient Notified: Yes (Carmen Duval) Result reviewed by: Addie Mata Supervising provider name: Chirag Urrutia Specimen Performing Organization Address City/State/Zipcode Ph one Number NUCMED documented in this encounter Visit Diagnoses Not on filedocumented in this encounter
--- OUTSIDE RECORDS SUMMARY | 2020-01-04 17:39 | XMS REPORT | Encounter Summary ---
Author Author [facility] Organization [facility] Address Unknown Phone Unavailable Care Team Providers Care Suction Roller Name Role Phone Arely Russell PCP Encounter Details Care Team Description Date Type Department [facility] Provider, MD Lars 04/29/2014 [facility] - Hist [facility] HISTORIC CLIN[facility] C Visit Social History [...] nosis PROTHROMBIN TIME/INR Routine 04/29/2014 8:36 AM PATIENT ACCOUNT SPECIALIST documented in this encounter Results * Prothrombin Time/INR (04/29/2014 8:36 AM PATIENT ACCOUNT SPECIALIST) INR 2.30 NUCMED Comment: Lab Date: 20140426 Date Coumadin/warfarin started: 20100910 Location where INR performed: Lab Lab name and contact information: Iris 4 wks siri waddell/ Dr. Proctor([facility]), [id number], [phone] Patient Status: Diagnosis 1: Atrial fibrillation [facility] Diagnosis 2: Target INR Range: 2.0-3.0 Next Lab due: 20140523 Pending Procedure: NA Patient Instructions(comments): IM-- cont 3.5mg daily ck in 4wk--arely v/u---sw Comments (General Comments) : CALL Arely with results. [phone] patient daughter patient is a pharm/sd Dr. Barney office [phone]/ fax [phone] Patient Notified: Yes (Addie Mata) Result reviewed by: Stacy Jaquez Supervising provider name: Dereje Billings Specimen Performing Organization Address City/State/Zipcode Ph one Number NUCMED documented in this encounter Visit Diagnoses Not on filedocumented in this encounter
--- OUTSIDE RECORDS SUMMARY | 2020-01-04 17:39 | XMS REPORT | Encounter Summary ---
Author Author [facility] Organization [facility] Address Unknown Phone Unavailable Care Team Providers Care Packing Machine Feeder Name Role Phone Sydni Russell PCP Encounter Details Care Team Description Date Type Department oY Roberts MD [address] [facility] [address] [place] [address] [phone] 08/07/2014 [facility] [...] nosis PROTHROMBIN TIME/INR Routine 08/07/2014 12:31 PM WEB APPLICATIONS PROGRAMMER documented in this encounter Results * Prothrombin Time/INR (08/07/2014 12:31 PM WEB APPLICATIONS PROGRAMMER) INR 2.20 NUCMED Comment: Lab Date: 20140807 Date Coumadin/warfarin started: 20100910 Location where INR performed: Lab Lab name and contact information: Iris waddell/ Dr. Proctor([facility]), [id number], [id number] Patient Status: Diagnosis 1: Atrial fibrillation [facility] Diagnosis 2: Target INR Range: 2.0-3.0 Next Lab due: 20140904 Pending Procedure: NA Patient Instructions(comments): IM---cont 3.5mg daily ck in 4 wk--- pt dtr v/u----sw Comments (General Comments) : CALL Sydni with results. [phone] patient daughter patient is a pharm/sd Dr. Barney office [phone]/ fax [phone] Patient Notified: Yes (Addie Mata) Result reviewed by: Addie Mata Supervising provider name: Eriberto Michaud Specimen Performing Organization Address City/State/Zipcode Ph one Number NUCMED documented in this encounter Visit Diagnoses Not on filedocumented in this encounter
--- OUTSIDE RECORDS SUMMARY | 2020-01-04 17:39 | XMS REPORT | Encounter Summary ---
Author Author [facility] Organization [facility] Address Unknown Phone Unavailable Care Team Providers Care Emergency Care Attendant Name Role Phone Sydni Russell PCP Encounter Details Care Team Description Date Type Department Yo Roberts MD [address] [facility] [address] [place] [address] [phone] 06/13/2014 [facility] - [facility] HISTORIC CLINI C Visit Social History Date [...] nosis PROTHROMBIN TIME/INR Routine 06/13/2014 2:19 PM CIRCULATION ANALYST documented in this encounter Results * Prothrombin Time/INR (06/13/2014 2:19 PM CIRCULATION ANALYST) INR 2.60 NUCMED Comment: Lab Date: 20140613 Date Coumadin/warfarin started: 20100910 Location where INR performed: Lab Lab name and contact information: Iris 4 wks siri waddell/ Dr. Proctor([facility]), [id number], [phone] Patient Status: Diagnosis 1: Atrial fibrillation JH Diagnosis 2: Target INR Range: 2.0-3.0 Next Lab due: 20140711 Pending Procedure: NA Patient Instructions(comments): IM-- cont 3.5mg daily ck in 4 wk -- Sydni v/u instruc -- etta Comments (General Comments) : CALL Sydni with results. [phone] patient daughter patient is a pharm/sd Dr. Barney office [phone]/ fax [phone] Patient Notified: Yes (Holly Melissa) Result reviewed by: Addie Mata Supervising provider name: Eriberto Michaud Specimen Performing Organization Address City/State/Zipcode Ph one Number NUCMED documented in this encounter Visit Diagnoses Not on filedocumented in this encounter
--- OUTSIDE RECORDS SUMMARY | 2020-01-04 17:39 | XMS REPORT | Encounter Summary ---
Author Author [facility] Organization [facility] Address Unknown Phone Unavailable Care Team Providers Care Rn Social Work Name Role Phone Sydni Russell PCP Encounter Details Care Team Description Date Type Department Yo Roberts MD [address] [facility] [address] [place] [address] [phone] 09/05/2014 [facility] - Hist [facility] HISTORIC CLINI C Visit Social History [...] name and contact information: Iris waddell/ Dr. Proctor([facility]), [id number], [phone] Patient Status: Diagnosis 1: Atrial fibrillation [facility] Diagnosis 2: Target INR Range: 2.0-3.0 Next Lab due: 20140919 Pending Procedure: NA Patient Instructions(comments): IM---holding or missed?--- take 5.5mg today and cont 3.5mg daily ck in 2 wk--- pt v/u---sw Comments (General Comments) : CALL Sydni with results. [phone] patient daughter patient is a pharm/sd Dr. Barney office [phone]/ fax [phone] Patient Notified: Yes (Addie Mata) Result reviewed by: Addie Mata Supervising provider name: Ian Fair Specimen Performing Organization Address City/State/Zipcode Ph one Number NUCMED documented in this encounter Visit Diagnoses Not on filedocumented in this encounter
--- OUTSIDE RECORDS SUMMARY | 2020-01-04 17:39 | XMS REPORT | Encounter Summary ---
Author Author [facility] Organization [facility] Address Unknown Phone Unavailable Care Team Providers Care Couture Dressmaker Name Role Phone DeportSydni head PCP Encounter Details Care Team Description Date Type Department Reid Stock MD [address] [facility] [address] [place] [address] [phone] 12/18/2013 [facility] - Hist [facility] HISTORIC CLINI C Visit Social [...]
--- OUTSIDE RECORDS SUMMARY | 2020-01-04 17:39 | XMS REPORT | Encounter Summary ---
Author Author [facility] Organization [facility] Address Unknown Phone Unavailable Care Team Providers Care Director Translation Name Role Phone Sydni Russell PCP Encounter Details Care Team Description Date Type Department Fernando Bailon MD [address] [facility] [address] [place] [address] [phone] 04/18/2014 [facility] - Hist [facility] HISTORIC CLINI C Visit Social [...] nosis PROTHROMBIN TIME/INR Routine 04/18/2014 10:31 AM ROULETTE DEALER documented in this encounter Results * Prothrombin Time/INR (04/18/2014 10:31 AM ROULETTE DEALER) INR 2.54 NUCMED Comment: Lab Date: 20140418 Date Coumadin/warfarin started: 20100910 Location where INR performed: Lab Lab name and contact information: Iris waddell/ Dr. Proctor([facility]), [phone], [phone] Patient Status: Diagnosis 1: Atrial fibrillation [facility] Diagnosis 2: Target INR Range: 2.0-3.0 Next Lab due: 20140516 Pending Procedure: NA Patient Instructions(comments): IM-- cont 3.5mg daily ck in 4wk -- pt's dtr Sydni v/u instruc -- etta Comments (General Comments) : CALL Sydni with results. [phone] patient daughter patient is a pharm/sd Dr. Barney office [phone]/ fax [phone] Patient Notified: Yes (Holly Melissa) Result reviewed by: Stacy Jaquez Supervising provider name: Ian Lema Specimen Performing Organization Address City/State/Zipcode Ph one Number NUCMED documented in this encounter Visit Diagnoses Not on filedocumented in this encounter
--- OUTSIDE RECORDS SUMMARY | 2020-01-04 17:39 | XMS REPORT | Encounter Summary ---
Author Author [facility] Organization [facility] Address Unknown Phone Unavailable Care Team Providers Care Zigzag Tunnel Elastic Operator Name Role Phone Sydni Russell PCP Encounter Details Care Team Description Date Type Department Wander Gayle MD [address] [facility] [address] [place] [address] [phone] 12/12/2014 [facility]IC [facility] [...] information: Iris 4 wks siri waddell/ Dr. Proctor([facility]), [phone], [phone] Patient Status: Diagnosis 1: Atrial fibrillation [facility] Diagnosis 2: Target INR Range: 2.0-3.0 Next Lab due: 20150108 Pending Procedure: NA Patient Instructions(comments): IM---cont 3.5mg daily ck in 4 wks--- pt dtr v/u---sw Comments (General Comments) : CALL Sydni with results. [phone] patient daughter patient is a pharm/sd Dr. Barney office [phone]/ fax [phone] Patient Notified: Yes (Addie Mata) Result reviewed by: Belkys Rose Supervising provider name: Fernando Santacruz Specimen Performing Organization Address City/State/Zipcode Ph one Number NUCMED documented in this encounter Visit Diagnoses Not on filedocumented in this encounter
--- OUTSIDE RECORDS SUMMARY | 2020-01-04 17:39 | XMS REPORT | Encounter Summary ---
Author Author [facility] Organization [facility] Address Unknown Phone Unavailable Care Team Providers Care Passport Support Manager Name Role Phone Sydni Russell PCP Encounter Details Care Team Description Date Type Department Yo Roberts MD [address] [facility] [address] [place] [address] [phone] 07/19/2014 [facility] - [facility] HISTORIC CLINI C Visit Social [...] nosis PROTHROMBIN TIME/INR Routine 07/19/2014 2:34 PM ENGINE OILER documented in this encounter Results * Prothrombin Time/INR (07/19/2014 2:34 PM ENGINE OILER) INR NA NUCMED Comment: Lab Date: 20140719 Date Coumadin/warfarin started: 20100910 Location where INR performed: Lab Lab name and contact information: Iris Welch wkmariaelena waddell/ Dr. Proctor([facility]), [phone], [phone] Patient Status: Diagnosis 1: Atrial fibrillation [facility] Diagnosis 2: Target INR Range: 2.0-3.0 Next Lab due: 20140723 Pending Procedure: NA Patient Instructions(comments): IM-- mailed reminder letter to ck INR rosalia/sd Comments (General Comments) : CALL Sydni with results. [phone] patient daughter patient is a pharm/sd Dr. Barney office [phone]/ fax [phone] Patient Notified: Yes (Stacy Jaquez) Result reviewed by: Stacy Jaquez Supervising provider name: Specimen Performing Organization Address City/State/Zipcode Ph one Number NUCMED documented in this encounter Visit Diagnoses Not on filedocumented in this encounter
--- OUTSIDE RECORDS SUMMARY | 2020-01-04 17:39 | XMS REPORT | Encounter Summary ---
Author Author [facility] Organization [facility] Address Unknown Phone Unavailable Care Team Providers Care Office Associate Name Role Phone Sydni Russell PCP Encounter Details Care Team Description Date Type Department [facility] Provider, MD Lars 01/09/2014 [facility] r/ Dr. Proctor([facility]), [id number], [id number] Patient Status: Diagnosis 1: Atrial fibrillation [facility] Diagnosis 2: Target INR Range: 2.0-3.0 Next Lab due: 20140205 Pending Procedure: NA Patient Instructions(comments): IM--- cont 3.5mg daily ck in 4 wk---pt milly v/u--sw Comments (General Comments) : CALL Sydni with results. [phone] patient daughter patient is a pharm/sd Dr. Barney office [phone]/ fax [phone] Patient Notified: Yes (Addie Mata) Result reviewed by: Stacy Jaquez Supervising provider name: Elie Mahajan Specimen Performing Organization Address City/State/Zipcode Ph one Number NUCMED documented in this encounter Visit Diagnoses Not on filedocumented in this encounter
--- OUTSIDE RECORDS SUMMARY | 2020-01-04 17:39 | XMS REPORT | Encounter Summary ---
Author Author [facility] Organization [facility] Address Unknown Phone Unavailable Care Team Providers Care Direct Selling Counselor Name Role Phone Sydni Russell PCP Encounter Details Care Team Description Date Type Department Wander Gayle MD [address] [facility] [address] [place] [address] [phone] 01/22/2014 [facility] [...] information: Iris 4 wks siri waddell/ Dr. Proctor([facility]), [id number], [id number] Patient Status: Diagnosis 1: Atrial fibrillation [facility] Diagnosis 2: Target INR Range: 2.0-3.0 Next Lab due: 20140205 Pending Procedure: NA Patient Instructions(comments): Im--- cont 3.5mg daily ck in 2 wk -- pt dtr v/u--sw Comments (General Comments) : CALL Sydni with results. [phone] patient daughter patient is a pharm/sd Dr. Barney office [phone]/ fax [phone] Patient Notified: Yes (Addie Mata) Result reviewed by: Stacy Jaquez Supervising provider name: Blane Dorantes Specimen Performing Organization Address City/State/Zipcode Ph one Number NUCMED documented in this encounter Visit Diagnoses Not on filedocumented in this encounter
--- OUTSIDE RECORDS SUMMARY | 2020-01-04 17:39 | XMS REPORT | Encounter Summary ---
Author Author [facility] Organization [facility] Address Unknown Phone Unavailable Care Team Providers Care Bodybuilder Name Role Phone Arely Russell PCP Encounter Details Care Team Description Date Type Department Rosamaria Ocampo MD [address] [facility] [place] [address] [place], [place] [id number] 02/05/2014 [facility] C Visit Social [...] name and contact information: Iris waddell/ Dr. Proctor([facility]), [id number], [id number] Patient Status: Diagnosis 1: Atrial fibrillation [facility] Diagnosis 2: Target INR Range: 2.0-3.0 Next Lab due: 20140305 Pending Procedure: NA Patient Instructions(comments): Im--- cont 3.5mg daily ck in 4wk-- arely v/u--sw Comments (General Comments) : CALL Arely with results. [phone] patient daughter patient is a pharm/sd Dr. Barney office [phone]/ fax [phone] Patient Notified: Yes (Addie Mata) Result reviewed by: Stacy Jaquez Supervising provider name: Bacilio Liriano Specimen Performing Organization Address City/State/Zipcode Ph one Number NUCMED documented in this encounter Visit Diagnoses Not on filedocumented in this encounter
--- OUTSIDE RECORDS SUMMARY | 2020-01-04 17:39 | XMS REPORT | Encounter Summary ---
Author Author [facility] Organization [facility] Address Unknown Phone Unavailable Care Team Providers Care Customer Trainer Name Role Phone Aerly Rsusell PCP Encounter Details Care Team Description Date Type Department Yo Roberts MD [address] [facility] [address] [place] [address] [phone] 09/30/2014 [facility] Hist [facility] HISTORIC [...] name and contact information: Iris waddell/ Dr. Proctor([facility]), [id number], [id number] Patient Status: Diagnosis 1: Atrial fibrillation [facility] Diagnosis 2: Target INR Range: 2.0-3.0 Next Lab due: [id number] Pending Procedure: NA Patient Instructions(comments): IM--- cont 3.5mg daily ck in 4 wk--pts dtr arely vu/filipe Comments (General Comments) : CALL Arely with results. [phone] patient daughter patient is a pharm/sd Dr. Barney office [phone]/ fax [phone] Patient Notified: Yes (Frannie Hare) Result reviewed by: Addie Mata Supervising provider name: Elie Mahajan Specimen Performing Organization Address City/State/Zipcode Ph one Number NUCMED documented in this encounter Visit Diagnoses Not on filedocumented in this encounter
--- OUTSIDE RECORDS SUMMARY | 2020-01-04 17:40 | XMS REPORT | Encounter Summary ---
Author Author [facility] Organization [facility] Address Unknown Phone Unavailable Care Team Providers Care Material Loader Name Role Phone Sydni Russell PCP Encounter Details Care Team Description Date [place] [address] [facility] [address] [place] [address] [phone] 09/27/2013 [facility] [...] waddell/ Dr. Proctor([facility]), [id number], [id number] Patient Status: Diagnosis 1: Atrial fibrillation [facility] Diagnosis 2: Target INR Range: 2.0-3.0 Next Lab due: 20131025 Pending Procedure: NA Patient Instructions(comments): IM--- cont 3.5mg daily ck in 4 wk/// dtr v/u-jcm Comments (General Comments) : CALL Sydni with results. [phone] patient daughter patient is a pharm/sd Dr. Barney office [phone]/ fax [phone] Patient Notified: Yes (Sena Francisco) Result reviewed by: Stacy Jaquez Supervising provider name: Eriberto Carrasquillo Specimen Performing Organization Address City/State/Zipcode Ph one Number NUCMED documented in this encounter Visit Diagnoses Not on filedocumented in this encounter
--- OUTSIDE RECORDS SUMMARY | 2020-01-04 17:40 | XMS REPORT | Encounter Summary ---
Author Author [facility] Organization [facility] Address Unknown Phone Unavailable Care Team Providers Care Hat Block Bench Hand Name Role Phone YvonneSydni head PCP Encounter Details Care Team Description Date Type Department [facility] ProviderLars MD 10/19/2013 [facility] information: Iris 4 wks siri r/ Dr. Proctor([facility]), [id number], [id number] Patient Status: Diagnosis 1: Atrial fibrillation [facility] Diagnosis 2: Target INR Range: 2.0-3.0 Next Lab due: 20131018 Pending Procedure: NA Patient Instructions(comments): IM--- cont 3.5mg daily ck in 2 wk///spoke to dtr, she v/u-hn Comments (General Comments) : CALL Sydni with results. [phone] patient daughter patient is a pharm/sd Dr. Barney office [phone]/ fax [phone] Patient Notified: Yes (Tanna Rothman) Result reviewed by: Stacy Jaquez Supervising provider name: Yaw Finnegan Specimen Performing Organization Address City/State/Zipcode Ph one Number NUCMED documented in this encounter Visit Diagnoses Not on filedocumented in this encounter
--- OUTSIDE RECORDS SUMMARY | 2020-01-04 17:40 | XMS REPORT | Encounter Summary ---
Author Author [facility] Organization [facility] Address Unknown Phone Unavailable Care Team Providers Care Senior Research Analyst Name Role Phone Sydni Russell PCP Encounter Details Care Team Description Date Type Department Eriberto Carrasquillo MD [address] [place] [address] [phone] 06/28/2013 [facility] [...] nosis PROTHROMBIN TIME/INR Routine 06/28/2013 5:11 PM FABRICATION AND ASSEMBLY SUPERVISOR documented in this encounter Results * Prothrombin Time/INR (06/28/2013 5:11 PM FABRICATION AND ASSEMBLY SUPERVISOR) INR 2.10 NUCMED Comment: Lab Date: [id number] Date Coumadin/warfarin started: 20100910 Location where INR performed: Lab Lab name and contact information: Iris waddell/ Dr. Proctor([facility]), [id number], [id number] Patient Status: Diagnosis 1: Atrial fibrillation [facility] Diagnosis 2: Target INR Range: 2.0-3.0 Next Lab due: 20130726 Pending Procedure: NA Patient Instructions(comments): cont 3.5mg daily and blayne 4wks-jcm///spoke to Sydni, she v/u-hn Comments (General Comments) : CALL Sydni with results. [phone] patient daughter patient is a pharm/sd Dr. Barney office [phone]/ fax [phone] 08-31-11 He is having trouble with the home meter. He will be retrained over the phone. Patient Notified: Yes (Tanna Rothman) Result reviewed by: Sena Francisco Supervising provider name: Eriberto Carrasquillo Specimen Performing Organization Address City/State/Zipcode Ph one Number NUCMED documented in this encounter Visit Diagnoses Not on filedocumented in this encounter
--- OUTSIDE RECORDS SUMMARY | 2020-01-04 17:40 | XMS REPORT | Encounter Summary ---
Author Author [facility] Organization [facility] Address Unknown Phone Unavailable Care Team Providers Care Respiratory Therapy Assistant Name Role Phone Pravin Proctor PCP Encounter Details Care Team Description Date Type Department Dawit Ramon MD No Forwarding Address 07/06/2013 PracPart Note [facility] ogy [address] [place] [address] Social History Date Tobacco Use Types Packs/Day Years Used Never Assessed Sex Assigned at Date Recorded Not on file Industry Job Start Date Occupation Not on file Not on file Not on file Travel End Travel History Travel Start No recent travel history available. documented as of this encounter Progress Notes * Dawit Ramon MD - 07/06/2013 10:54 AM [employer] . :10:54AM .T:FYI call from patient's daughter From: Dawit Ramon ([facility]) Originated by: Dawit Ramon ([facility]) Sent: 014 at 10:54AM To: Jing Flores (CHRISTINA) Type: CHART Priority: 3 Subject: FYI call from patient's daughter ok --- will continue to monitor -- can come back at any time Original Message: From: PO To: [facility] Subject: FYI call from patient's daughter [...] updated - po 04/12/13 Pravin Proctor MD [facility] [place] [address] RE: Azeem Russell : [address] [...] in follow up on 04/12/13 at our [facility] in the presence of his and daughter [...] :isidoro CC: Reid Tan M.D. [facility] [address] [place] [address] documented in this encounter Plan of Treatment Not on filedocumented as of this encounter Visit Diagnoses Not on filedocumented in this encounter
--- OUTSIDE RECORDS SUMMARY | 2020-01-04 17:40 | XMS REPORT | Encounter Summary ---
Author Author [facility] Organization [facility] Address Unknown Phone Unavailable Care Team Providers Care Boat Motor Mechanic Name Role Phone Sydni Russell PCP Encounter Details Care Team Description [place] [address] [place] [address] [phone] 11/12/2013 [facility] [...] Stock MD - 11/12/2013 3:47 PM CDT [place] [facility] [address] [place] [address] 11/19/2013 Pravin Proctor MD [facility] [place] [address] Re: STEVEN ALEX : 1935 Chart#: [id number] Dear Dr. Proctor: This is a followup [...]
--- OUTSIDE RECORDS SUMMARY | 2020-01-04 17:40 | XMS REPORT | Encounter Summary ---
Author Author [facility] Organization [facility] Address Unknown Phone Unavailable Care Team Providers Care Child Care Attendant Name Role Phone Sydni Russell PCP Encounter Details Care Team Description Date Type Department [facility] ProviderLars MD 11/01/2013 [facility] - Hist [facility] HISTORIC CLINI C Visit Social [...] information: Iris 4 wks siri waddell/ Dr. Proctor([facility]), [id number], [id number] Patient Status: Diagnosis 1: Atrial fibrillation [facility] Diagnosis 2: Target INR Range: 2.0-3.0 Next Lab due: 20131115 Pending Procedure: NA Patient Instructions(comments): IM-- miss or holding? take 5mg today and tomorrow then resume 3.5mg daily ck in 2 wk--pt's daughter Sydni v/u--etta Comments (General Comments) : CALL Sydni with results. [phone] patient daughter patient is a pharm/sd Dr. Barney office [phone]/ fax [phone] Patient Notified: Yes (Holly Melissa) Result reviewed by: Stacy Jaquez Supervising provider name: Eriberto Carrasquillo Specimen Performing Organization Address City/State/Zipcode Ph one Number NUCMED documented in this encounter Visit Diagnoses Not on filedocumented in this encounter
--- OUTSIDE RECORDS SUMMARY | 2020-01-04 17:40 | XMS REPORT | Encounter Summary ---
Author Author [facility] Organization [facility] Address Unknown Phone Unavailable Care Team Providers Care Spring Floor Service Worker Name Role Phone Sydni Russell PCP Encounter Details Care Team Description Date Type Department Reid Stock MD [address] [facility] [address] [place] [address] [phone] 11/08/2013 [facility] Hist [facility] [...] Stock MD - 11/08/2013 1:30 PM CDT [address] [address] November 08, 2013 Pravin Proctor MD [address] [place] [address] RE: TENISHA RUSSELL : 1935 Chart #: [id number] Visit provider: Reid Welch M.D. Visit location: [facility] Dear Dr. Proctor: I had [...]
--- OUTSIDE RECORDS SUMMARY | 2020-01-04 17:40 | XMS REPORT | Encounter Summary ---
Author Author [facility] Organization [facility] Address Unknown Phone Unavailable Care Team Providers Care Developer Analyst Name Role Phone Sydni Russell PCP Encounter Details Care Team Description Date Type Department [facility] ProviderLars MD 09/04/2013 [facility] - Hist [facility] HISTORIC CLINI C Visit Social History [...] information: Iris 4 wks siri r/ Dr. Proctor([facility]), [id number], [id number] Patient Status: Diagnosis 1: Atrial fibrillation [facility] Diagnosis 2: Target INR Range: 2.0-3.0 Next Lab due: 20131002 Pending Procedure: NA Patient Instructions(comments): IM--- cont 3.5mg daily ck in 4 wk----Sydni v/u sd Comments (General Comments) : CALL Sydni with results. [phone] patient daughter patient is a pharm/sd Dr. Barney office [phone]/ fax [phone] 08-31-11 He is having trouble with the home meter. He will be retrained over the phone. jm Patient Notified: Yes (Stacy Jaquez) Result reviewed by: Stacy Jaquez Supervising provider name: Eriberto Carrasquillo Specimen Performing Organization Address City/State/Zipcode Ph one Number NUCMED documented in this encounter Visit Diagnoses Not on filedocumented in this encounter
--- OUTSIDE RECORDS SUMMARY | 2020-01-04 17:40 | XMS REPORT | Encounter Summary ---
Author Author [facility] Organization [facility] Address Unknown Phone Unavailable Care Team Providers Care Production Sorter Name Role Phone Sydni Russell PCP Encounter Details Care Team Description Date Type Department Elie Ding MD [address] [facility] [address] [place] [address] [phone] 12/14/2013 [facility] Hist [facility] HISTORIC [...] information: Iris 4 wks siri waddell/ Dr. Proctor([facility]), [id number], [id number] Patient Status: Diagnosis 1: Atrial fibrillation [facility] Diagnosis 2: Target INR Range: 2.0-3.0 Next Lab due: 20140110 Pending Procedure: NA Patient Instructions(comments): cont 3.5mg daily and blayne 4wks-jcm -- pt's dtr Sydni v/u instruc -- etta Comments (General Comments) : CALL Sydni with results. [phone] patient daughter patient is a pharm/sd Dr. Barney office [phone]/ fax [phone] Patient Notified: Yes (Holly Melissa) Result reviewed by: Sena Francisco Supervising provider name: Eriberto Michaud Specimen Performing Organization Address City/State/Zipcode Ph one Number NUCMED documented in this encounter Visit Diagnoses Not on filedocumented in this encounter
--- OUTSIDE RECORDS SUMMARY | 2020-01-04 17:40 | XMS REPORT | Encounter Summary ---
Author Author [facility] Organization [facility] Address Unknown Phone Unavailable Care Team Providers Care Frog Catcher Name Role Phone Sydni Russell PCP Encounter Details Care Team Description Date Type Department Ramin Oneil MD [address] [facility] [address] [place] [address] [phone] 11/13/2013 [facility] [...] Iris 4 wks siri waddell/ Dr. Proctor([facility]), [id number], [id number] Patient Status: Diagnosis 1: Atrial fibrillation [facility] Diagnosis 2: Target INR Range: 2.0-3.0 Next Lab due: 20131127 Pending Procedure: NA Patient Instructions(comments): IM--- cont 3.5mg daily ck in 2 wk--spoke with dtnadira Troy v/u-isidoro Comments (General Comments) : CALL Sydni with results. [phone] patient daughter patient is a pharm/sd Dr. Barney office [phone]/ fax [phone] Patient Notified: Yes (Brijesh Shields) Result reviewed by: Stacy Jaquez Supervising provider name: Elie Mahajan Specimen Performing Organization Address City/State/Zipcode Ph one Number NUCMED documented in this encounter Visit Diagnoses Not on filedocumented in this encounter
--- OUTSIDE RECORDS SUMMARY | 2020-01-04 17:40 | XMS REPORT | Encounter Summary ---
Author Author [facility] Organization [facility] Address Unknown Phone Unavailable Care Team Providers Care Evp Head [employer] Experience Strategy Name Role Phone YvonneSydni head PCP Encounter Details Care Team Description Date Type Department [facility] ProviderLars MD 08/23/2013 [facility] - Hist [facility] HISTORIC CLINI C Visit [...] nosis PROTHROMBIN TIME/INR Routine 08/10/2013 9:17 AM OLIVE PACKER documented in this encounter Results * Prothrombin Time/INR (08/10/2013 9:17 AM OLIVE PACKER) INR 1.94 NUCMED Comment: Lab Date: [id number] Date Coumadin/warfarin started: 20100910 Location where INR performed: Lab Lab name and contact information: Iris 4 wks siri waddell/ Dr. Proctor([facility]), [id number], [id number] Patient Status: Diagnosis 1: Atrial fibrillation [facility] Diagnosis 2: Target INR Range: 2.0-3.0 Next Lab due: 20130823 Pending Procedure: NA Patient Instructions(comments): IM--- cont 3.5mg daily ck in 2 wk/// Sydni v/u-jcm Comments (General Comments) : CALL Sydni with results. [phone] patient daughter patient is a pharm/sd Dr. Barney office [phone]/ fax [phone] 08-31-11 He is having trouble with the home meter. He will be retrained over the phone. jm Patient Notified: Yes (Sena Francisco) Result reviewed by: Stacy Jaquez Supervising provider name: Gustavo Mirza Specimen Performing Organization Address City/State/Zipcode Ph one Number NUCMED documented in this encounter Visit Diagnoses Not on filedocumented in this encounter
--- OUTSIDE RECORDS SUMMARY | 2020-01-04 17:40 | XMS REPORT | Encounter Summary ---
Author Author [facility] Organization [facility] Address Unknown Phone Unavailable Care Team Providers Care Industrial Psychology Professor Name Role Phone YvonneSydni head PCP Encounter Details Care Team Description Date Type Department [facility] ProviderLars MD 06/11/2013 [facility] nosis PROTHROMBIN TIME/INR Routine 06/11/2013 8:50 AM MOVIE STUNT PERFORMER documented in this encounter Results * Prothrombin Time/INR (06/11/2013 8:50 AM MOVIE STUNT PERFORMER) INR 2.10 NUCMED Comment: Lab Date: [id number] Date Coumadin/warfarin started: 20100910 Location where INR performed: Lab Lab name and contact information: rIis 4 wks siri r/ Dr. Proctor([facility]), [id number], [id number] Patient Status: Diagnosis 1: Atrial fibrillation [facility] Diagnosis 2: Target INR Range: 2.0-3.0 Next Lab due: 20130707 Pending Procedure: NA Patient Instructions(comments): cont 3.5mg daily and blayne 4wks///spoke to dtr Tyree, she v/u of instructions-hn Comments (General Comments) : CALL Sydni with results. [phone] patient daughter patient is a pharm/sd Dr. Barney office [phone]/ fax [phone] 08-31-11 He is having trouble with the home meter. He will be retrained over the phone. jm Patient Notified: Yes (Tanna Rothman) Result reviewed by: Stacy Jaquez Supervising provider name: Ian Fair Specimen Performing Organization Address City/State/Zipcode Ph one Number NUCMED documented in this encounter Visit Diagnoses Not on filedocumented in this encounter
--- OUTSIDE RECORDS SUMMARY | 2020-01-04 17:40 | XMS REPORT | Encounter Summary ---
Author Author [facility] Organization [facility] Address Unknown Phone Unavailable Care Team Providers Care Manufacturing Maintenance Manager Name Role Phone Sydni Russell PCP Encounter Details Care Team Description Date Type Department Dustin Pittman MD No Forwarding Address 11/22/2013 [facility] - Hist [facility] HISTORIC [...]
--- OUTSIDE RECORDS SUMMARY | 2020-01-04 17:40 | XMS REPORT | Encounter Summary ---
Author Author [facility] Organization [facility] Address Unknown Phone Unavailable Care Team Providers Care Heatset Winder Operator Name Role Phone AuroraSydni head PCP Encounter Details Care Team Description Date Type Department Reid Stock MD [address] [facility] [address] [place] [address] [phone] 07/05/2013 [facility] - Hist [facility] HISTORIC CLINI [...]
--- OUTSIDE RECORDS SUMMARY | 2020-01-04 17:40 | XMS REPORT | Encounter Summary ---
Author Author [facility] Organization [facility] Address Unknown Phone Unavailable Care Team Providers Care Diabetes Trainer Name Role Phone Sydni Russell PCP Encounter Details Care Team Description Date Type Department Reid Stock MD [address] [facility] [address] [place] [address] [phone] 11/06/2013 [facility] - Hist [...] of Information RE: TENISHA RUSSELL : 1935 [facility] is requesting protected health informat ion from: Dr. Pravin Proctor Purpose: Continuation of care Please release records to the following [facility] Office: [place] [address] Fax to : Attention : Chart Web Software Engineer--Eva PH: [phone] Welch on 11/08 [...] of the individual or entity named a odroteo. If the reader of a facsimile is [...]
--- OUTSIDE RECORDS SUMMARY | 2020-01-04 17:40 | XMS REPORT | Encounter Summary ---
Author Author [facility] Organization [facility] Address Unknown Phone Unavailable Care Team Providers Care Park Manager Name Role Phone Sydni Russell PCP Encounter Details Care Team Description Date Type Department [facility] ProviderLars MD 11/16/2013 [facility] - Hist [facility] HISTORIC CLINI [...] information: Iris 4 wks siri r/ Dr. Proctor([facility]), [id number], [id number] Patient Status: Diagnosis 1: Atrial fibrillation [facility] Diagnosis 2: Target INR Range: 2.0-3.0 Next Lab due: 20131206 Pending Procedure: NA Patient Instructions(comments): Im--- cont 3.5mg daily ck in 3 wk--spoke with Sydni v/u-lr Comments (General Comments) : CALL Sydni with results. [phone] patient daughter patient is a pharm/sd Dr. Barney office [phone]/ fax [phone] Patient Notified: Yes (Brijesh Shields) Result reviewed by: Stacy Jaquez Supervising provider name: Blane Dorantes Specimen Performing Organization Address City/State/Zipcode Ph one Number [facility] documented in this encounter Visit Diagnoses Not on filedocumented in this encounter
--- OUTSIDE RECORDS SUMMARY | 2020-01-04 17:40 | XMS REPORT | Encounter Summary ---
Author Author [facility] Organization [facility] Address Unknown Phone Unavailable Care Team Providers Care News Agent Name Role Phone Sydni Russell PCP Encounter Details Care Team Description Date Type Department [facility] ProviderLars MD 08/24/2013 [facility] - Hist [facility] HISTORIC CLINI C Visit Social [...] information: Iris 4 wks siri r/ Dr. Proctor([facility]), [id number], [id number] Patient Status: Diagnosis 1: Atrial fibrillation [facility] Diagnosis 2: Target INR Range: 2.0-3.0 Next Lab due: 20130913 Pending Procedure: NA Patient Instructions(comments): IM--- cont 3.5mg daily ck in 3 wk///spoke to Sydni she v/u of dosing-hn Comments (General Comments) : CALL Sydni with results. [phone] patient daughter patient is a pharm/sd Dr. Barney office [phone]/ fax [phone] 08-31-11 He is having trouble with the home meter. He will be retrained over the phone. jm Patient Notified: Yes (Tanna Rothman) Result reviewed by: Stacy Jaquez Supervising provider name: Eriberto Carrasquillo Specimen Performing Organization Address City/State/Zipcode Ph one Number [facility] documented in this encounter Visit Diagnoses Not on filedocumented in this encounter
--- OUTSIDE RECORDS SUMMARY | 2020-01-04 17:40 | XMS REPORT | Encounter Summary ---
Author Author [facility] Organization [facility] Address Unknown Phone Unavailable Care Team Providers Care Marketing Finance Specialist Name Role Phone YvonneSydni head PCP Encounter Details Care Team Description Date Type Department Carotid artery disease (HCC) 11/08/[address] [address] Social History Date Tobacco Use Types Packs/Day [...] 3:12 PM CDT) Specimen Narrative Performed At [facility] Carotid Duplex Report [facility] Name: TENISHA RUSSELL Date: 11/08/2013 14:46 Chart# [id number] : 1935 Location: [facility] OP Sono: at yser Age: 78 Gender: [...] Name: TENISHA RUSSELL Date: 11/08/2013 14:46 Chart# [id number] : 1935 Location: [facility] OP Sono: marj Age: 78 Gender: M [...] Performing Organization Address City/State/Zipcode Ph one Number [facility] [address] [facility] [place] [address] documented in this encounter Visit Diagnoses Diagnosis Carotid artery disease (HCC) Unspecified disorders of arteries and a rterioles documented in this encounter
--- OUTSIDE RECORDS SUMMARY | 2020-01-04 17:40 | XMS REPORT | Encounter Summary ---
Author Author [facility] Organization [facility] Address Unknown Phone Unavailable Care Team Providers Care Standard Machine Stitcher Name Role Phone Sydni Russell PCP Encounter Details Care Team Description Date Type Department Dustin Pittman MD No Forwarding Address 11/16/2013 [facility] - Hist [facility] HISTORIC CLINI [...] Pittman MD - 11/16/2013 9:39 AM CDT [place] [facility] [address] [place] [address] 11/19/2013 Pravin Proctor MD [facility] [place] [address] Re: STEVEN YVONNE : 1935 Chart#: [id number] Dear Dr. Proctor: This is a followup [...]
--- OUTSIDE RECORDS SUMMARY | 2020-01-04 17:40 | XMS REPORT | Encounter Summary ---
Author Author [facility] Organization [facility] Address Unknown Phone Unavailable Care Team Providers Care Saw Man Name Role Phone Sydni Russell PCP Encounter Details Care Team Description Date Type Department [facility] ProviderLars MD 07/11/2013 [facility] - Hist [...] nosis PROTHROMBIN TIME/INR Routine 07/11/2013 2:12 PM PUMP MECHANIC documented in this encounter Results * Prothrombin Time/INR (07/11/2013 2:12 PM PUMP MECHANIC) INR 2.30 [facility] Comment: Lab Date: [id number] Date Coumadin/warfarin started: 20100910 Location where INR performed: Lab Lab name and contact information: Iris 4 wks siri waddell/ Dr. Proctor([facility]), [phone], [id number] Patient Status: Diagnosis 1: Atrial fibrillation [facility] Diagnosis 2: Target INR Range: 2.0-3.0 Next Lab due: 20130808 Pending Procedure: NA Patient Instructions(comments): cont 3.5mg daily and blayne 4wks--- Sydni v/u sd Comments (General Comments) : CALL Sydni with results. [phone] patient daughter patient is a pharm/sd Dr. Barney office [phone]/ fax [phone] 08-31-11 He is having trouble with the home meter. He will be retrained over the phone. jm Patient Notified: Yes (Stacy Jaquez) Result reviewed by: Stacy Jaquez Supervising provider name: Jed Christiansen Specimen Performing Organization Address City/State/Zipcode Ph one Number [facility] documented in this encounter Visit Diagnoses Not on filedocumented in this encounter
--- OUTSIDE RECORDS SUMMARY | 2020-01-04 17:40 | XMS REPORT | Encounter Summary ---
Author Author [facility] Organization [facility] Address Unknown Phone Unavailable Care Team Providers Care Web Press Operator Assistant Name Role Phone MiltonSdyni head PCP Encounter Details Care Team Description Date Type Department Reid Stock MD [address] [facility] [address] [place] [address] [phone] 11/26/2013 [facility] Hist [facility] HISTORIC [...]
--- OUTSIDE RECORDS SUMMARY | 2020-01-04 17:40 | XMS REPORT | Encounter Summary ---
Author Author [facility] Organization [facility] Address Unknown Phone Unavailable Care Team Providers Care Medical Office Assistant Instructor Name Role Phone CliffordSydni head PCP Encounter Details Care Team Description Date Type Department Reid Stock MD [address] [facility] [address] [place] [address] [phone] 09/20/2013 [facility] - Hist [facility] HISTORIC [...]
--- OUTSIDE RECORDS SUMMARY | 2020-01-04 17:40 | XMS REPORT | Encounter Summary ---
Author Author [facility] Organization [facility] Address Unknown Phone Unavailable Care Team Providers Care Nitriles Lab Technician Name Role Phone Stone ParkSydni head PCP Encounter Details Care Team Description Date Type Department Reid Stock MD [address] [facility] [address] [place] [address] [phone] 11/02/2013 [facility] - Hist [facility] HISTORIC CLINI [...]
--- OUTSIDE RECORDS SUMMARY | 2020-01-04 17:40 | XMS REPORT | Encounter Summary ---
Author Author [facility] Organization [facility] Address Unknown Phone Unavailable Care Team Providers Care Weigher And Mixer Name Role Phone Sydni Russell PCP Encounter Details Care Team Description Date [place] [address] [facility] [address] [place], [place] [address] 10/19/2013 [facility] - Hist [facility] HISTORIC CLINI C Visit Social [...] information: Iris 4 wks siri waddell/ Dr. Proctor([facility]), [id number], [id number] Patient Status: Diagnosis 1: Atrial fibrillation [facility] Diagnosis 2: Target INR Range: 2.0-3.0 Next Lab due: 20131115 Pending Procedure: NA Patient Instructions(comments): cont 3.5mg daily and blayne 4wks (sent new order to [facility])-jcm--patient verbally understood--etta Comments (General Comments) : CALL Sydni with results. [phone] patient daughter patient is a pharm/sd Dr. Barney office [phone]/ fax [phone] Patient Notified: Yes (Holly Melissa) Result reviewed by: Sena Francisco Supervising provider name: Chirag Urrutia Specimen Performing Organization Address City/State/Zipcode Ph one Number [facility] documented in this encounter Visit Diagnoses Not on filedocumented in this encounter
--- OUTSIDE RECORDS SUMMARY | 2020-01-04 17:41 | XMS REPORT | Encounter Summary ---
Author Author [facility] Organization [facility] Address Unknown Phone Unavailable Care Team Providers Care Medical Records Field Technician Name Role Phone Sydni Russell PCP Encounter Details Care Team Description Date Type Department [facility] Provider, MD Lars 04/05/2013 [facility] - Hist [facility] HISTORIC CLINI C Visit Social [...] contact information: Iris Welch wkmariaelena waddell/ Dr. Proctor([facility]), [id number], [phone] Patient Status: Diagnosis 1: Atrial fibrillation [facility] Diagnosis 2: Target INR Range: 2.0-3.0 Next Lab due: 20130414 Pending Procedure: NA Patient Instructions(comments): cont 3.5mg daily ck in 4wks///// Sydni v/u--ml Comments (General Comments) : CALL Sydni with results. [phone] patient daughter patient is a pharm/sd Dr. Barney office [phone]/ fax [phone] 08-31-11 He is having trouble with the home meter. He will be retrained over the phone. jm Patient Notified: Yes (Desi Armenta) Result reviewed by: Stacy Jaquez Supervising provider name: Neema Ayuob Specimen Performing Organization Address City/State/Zipcode Ph one Number [facility] documented in this encounter Visit Diagnoses Not on filedocumented in this encounter
--- OUTSIDE RECORDS SUMMARY | 2020-01-04 17:41 | XMS REPORT | Encounter Summary ---
Author Author [facility] Organization [facility] Address Unknown Phone Unavailable Care Team Providers Care Rn Angiography Name Role Phone Sydni Russell PCP Encounter Details Care Team Description Date Type Department Dawit Ramon MD No Forwarding Address 04/12/2013 Hist-Visit [facility] HIST CLINIC Social History Date Tobacco Use [...] Comments Vital Sign 137/70 04/12/2013 1:17 PM PODIATRIC PHYSICIAN Blood Pressure 52 04/12/2013 1:17 PM PODIATRIC PHYSICIAN Pulse 36.3 C (97.4 F) 04/12/2013 1:17 PM PODIATRIC PHYSICIAN Temperature - - Respiratory Rate - - Oxygen Saturation - - Inhaled Oxygen Concentration 76.7 kg (169 lb) 04/12/2013 1:17 PM PODIATRIC PHYSICIAN Weight - - Height 25.7 02/13/2013 1:32 PM CDT Body Mass Index documented in this encounter Progress Notes * Dawit Ramon MD - 04/12/2013 3:12 PM PODIATRIC PHYSICIAN . : 03:12pm .T: Return Patient .PV:SMA [facility] [address] [place] [address] [facility] [address] [place] [address] [place], [place] [address] [place] [address] [place] [address] Inga Ramon M.D. Dawit Ramon M.D. Patricia Slaughter M.D. Ольга Fox M.D. Neema Nguyễn D.O. Meet Zamorano M.D. Kalee Cuellar M.D. Jade Chavez M.D. Urban Sanchez M.D. Sherrie Leger, MSN,RN,ANP, [facility] Pravin Herrmann M.D., Ph.D. Fernando Paige M.D. Edson Flores M.D. . 04/12/13 Pravin Proctor MD [facility] [place] [address] RE: Azeem Russell : [address] [...] seen in follow up on 04/12/13 at [facility] in the presence of his and daughter [...] :isidoro CC: Reid Tan M.D. [facility] [address] [place] [phone] # SIGNED BY Dawit Ramon MD (SMA) 04/13/2013 10:10AM ATRIC PHYSICIAN documented in this encounter Plan of Treatment Not on filedocumented as of this encounter Visit Diagnoses Not on filedocumented in this encounter
--- OUTSIDE RECORDS SUMMARY | 2020-01-04 17:41 | XMS REPORT | Encounter Summary ---
Author Author [facility] Organization [facility] Address Unknown Phone Unavailable Care Team Providers Care Alcohol And Drug Counselor Name Role Phone Fátima Montana PCP Encounter Details Care Team Description Date Type Department Refugio Ramon MD No Forwarding Address 02/13/2013 PracPart Note [facility] [address] [place] [address] Social History Date Tobacco Use Types Packs/Day [...] Patient: TENISHA RUSSELL Phone #: Med Rec#: [id number] Sex: M : 1935 Judy#: [id number] Location: Check-in#: [id number] Procedure Requested: [id number] MRI HEAD WO CONTRAST Reason For Exam: DEMENTIA Exam Ordered: 02/13/2013 1542 Exam Date/Time: 02/13/2013 1645 Check-in Date/Time: 02/13/2013 1559 Attendin REFUGIO RAMON Requestin REFUGIO RAMON Referrin IBIS, REFERRING Primary Care: [id number] FÁTIMA MONTANA MD MRI HEAD WO CONTRAST [...] may be typographical and/or grammatical inaccuracies in marine oil terminal superintendent. Dictation Location: [facility] Signed (Authenticated, Released) Date-Time: 02/14/2013 0905 Town Clerk- DIDIER CONWAY D.O., Staff Radiologist Dictated By- DIDIER CONWAY D.O., Staff Radiologist Staff Physician- DIDIER CONWAY D.O., Staff Radiologist Authenticated By- DIDIER CONWAY D.O., Staff Radiologist -- RELEASED BY [id number] Accession Number: [id number] Ordering Physician: REFUGIO RAMON # SIGNED BY Refugio Ramon MD ([facility]) 02/15/2013 08:36AM documented in this encounter Plan of Treatment Not on filedocumented as of this encounter Visit Diagnoses Not on filedocumented in this encounter"
--- OUTSIDE RECORDS SUMMARY | 2020-01-04 17:41 | XMS REPORT | Encounter Summary ---
Author Author [facility] Organization [facility] Address Unknown Phone Unavailable Care Team Providers Care Corner Brace Block Machine Operator Name Role Phone Pravin Proctor PCP Encounter Details Care Team Description Date Type Department [facility], Historical 02/13/2013 PracPart Note [facility] Social History Date Tobacco Use Types Packs/Day Years Used Never Assessed Sex Assigned at Date Recorded Not on file Industry Job Start Date Occupation Not on file Not on file Not on file Travel End Travel History Travel Start No recent travel history available. documented as of this encounter Progress Notes * [facility], Historical - 02/13/2013 8:35 AM CDT . 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
--- OUTSIDE RECORDS SUMMARY | 2020-01-04 17:41 | XMS REPORT | Encounter Summary ---
Author Author [facility] Organization [facility] Address Unknown Phone Unavailable Care Team Providers Care Clinical Veterinarian Name Role Phone PCP Unavailable Encounter Details Care Team Description Date Type Department Refugio Ramon MD No Forwarding Address Memory loss 02/13/2013 [facility] [address] [place] [address] Social History Date Tobacco Use Types Packs/Day [...] 4:00 PM CDT) Specimen Narrative Performed At [facility] Patient: TENISHA RUSSELL Phone #: Med Rec#: [id number] Sex: M : 1935 Judy#: [id number] Location: Check-in#: [id number] Procedure Requested: [id number] MRI HEAD WO CONTRAST Reason For Exam: DEMENTIA Exam Ordered: 02/13/2013 154 2 Exam Date/Time: 02/13/2013 1645 Check-in Date/Time: 02/13/2013 1559 Attendin REFUGIO RAMON Requestin REFUGIO RAMON Referrin NO, REFERRING DR Primary Care: [id number] FÁTIMA MONTANA MD MRI HEAD WO CONTRAST [...] Parts of this report were generated wit get2play voice recognition software, there may be typographical and/or gramm atical inaccuracies in senior business development manager. Dictation Location: [facility] Signed (Authenticated, Released) Date-T eusebio: 02/14/2013 0905 Dyed Raw Stock Blower Feeder- DIDIER Santiago, Staff Radiologist Dictated By- Victorino GROVE D.O. Radiologist Staff Physician- DIDIER Taveras, Staff Radiologist Authenticated By- DIDIER Santiago, Staff Radiologist Procedure Note Interface, Rad Conversion - 08/03/2013 12:19 PM ORACLE DATABASE ARCHITECT REPORT Patient: TENISHA RUSSELL Phone #: Ship It Bag Check Rec#: [id number] Sex: M : 1935 Judy#: [id number] Location: Check-in#: [id number] Procedure Requested: [id number] MRI HEAD WO CONTRAST Reason For Exam: DEMENTIA Exam Ordered: 02/13/2013 1542 Exam Date/Time: 02/13/2013 1645 Check-in Date/Time: 02/13/2013 1559 Attendin REFUGIO RAMON Requestin REFUGIO RAMON Referrin NO, REFERRING Primary Care: [id number] FÁTIMA MONTANA MD MRI HEAD WO CONTRAST [...] may be typographical and/or grammatical inaccuracies in senior business development manager. Dictation Location: [facility] Signed (Authenticated, Released) Date-Time: 02/14/2013 0905 Dyed Raw Stock Blower Feeder- DIDIER CONWAY D.O., Staff Radiologist Dictated By- DIDIER CONWAY D.O., Staff Radiologist Staff Physician- DIDIER CONWAY D.O., Staff Radiologist Authenticated By- DIDIER CONWAY D.O., Staff Radiologist Performing Organization Address City/State/[facility] Ph one Number [place] documented in this encounter Visit Diagnoses Diagnosis Memory loss documented in this encounter
--- OUTSIDE RECORDS SUMMARY | 2020-01-04 17:41 | XMS REPORT | Encounter Summary ---
Author Author [facility] Organization [facility] Address Unknown Phone Unavailable Care Team Providers Care Parimutuel Clerk Name Role Phone Sydni Russell PCP Encounter Details Care Team Description Date Type Department Gregory Christine MD [address] [facility] [address] [place] [address] [phone] 02/12/2013 [facility]ORIC [facility] [...] information: Iris 4 wks siri waddell/ Dr. Proctor([facility]), [phone], [phone] Patient Status: Diagnosis 1: Atrial fibrillation [facility] Diagnosis 2: Target INR Range: 2.0-3.0 Next Lab due: 20130312 Pending Procedure: NA Patient Instructions(comments): cont 3.5mg daily ck in 4wks/hn/// Sydni v/u-jcm Comments (General Comments) : CALL Sydni with results. [phone] patient daughter patient is a pharm/sd Dr. Barney office [phone]/ fax [phone] 08-31-11 He is having trouble with the home meter. He will be retrained over the phone. jm Patient Notified: Yes (Sena Francisco) Result reviewed by: Tanna Rothman Supervising provider name: Eriberto Carrasquillo Specimen Performing Organization Address City/State/Zipcode Ph one Number [facility] documented in this encounter Visit Diagnoses Not on filedocumented in this encounter
--- OUTSIDE RECORDS SUMMARY | 2020-01-04 17:41 | XMS REPORT | Encounter Summary ---
Author Author [facility] Organization [facility] Address Unknown Phone Unavailable Care Team Providers Care Fur Clipper Name Role Phone Sydni Russell PCP Encounter Details Care Team Description Date Type Department Eriberto Carrasquillo MD [address] [place] [address] [phone] 12/26/2012 [facility]ORIC CLINI [...] 4 wks siri waddell/ Dr. Proctor([facility]), [phone], [phone] Patient Status: Diagnosis 1: Atrial fibrillation [facility] Diagnosis 2: Target INR Range: 2.0-3.0 Next Lab due: 20130116 Pending Procedure: NA Patient Instructions(comments): cont 3.5mg daily and blayne 3wks-jcm///spoke to Sydni v/u---hn Comments (General Comments) : CALL Sydni with results. [phone]. 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 Barney office [phone]/ fax [phone] 08-31-11 He is having trouble with the home meter. He will be retrained over the phone. jm Patient Notified: Yes (Tanna Rothman) Result reviewed by: Sena Francisco Supervising provider name: Chirag Urrutia Specimen Performing Organization Address City/State/Zipcode Ph one Number [facility] documented in this encounter Visit Diagnoses Not on filedocumented in this encounter
--- OUTSIDE RECORDS SUMMARY | 2020-01-04 17:41 | XMS REPORT | Encounter Summary ---
Author Author [facility] Organization [facility] Address Unknown Phone Unavailable Care Team Providers Care Geospatial Engineer Name Role Phone Pravin Proctor PCP Encounter Details Care Team Description Date Type Department Dawit Ramon MD No Forwarding Address 04/12/2013 PracPart Note [facility] Neurol o[facility] [address] [place] [address] Social History Date Tobacco Use Types Packs/Day Years Used Never Assessed Sex Assigned at Date Recorded Not on file Industry Job Start Date Occupation Not on file Not on file Not on file Travel End Travel History Travel Start No recent travel history available. documented as of this encounter Progress Notes * Dawit Ramon MD - 04/12/2013 2:01 PM PSYCHOLOGY FELLOW . : 02:01pm .T: pt will call to schedule an apt with [facility] [place]U SO, [id number] documented in this encounter Plan of Treatment Not on filedocumented as of this encounter Visit Diagnoses Not on filedocumented in this encounter
--- OUTSIDE RECORDS SUMMARY | 2020-01-04 17:41 | XMS REPORT | Encounter Summary ---
Author Author [facility] Organization [facility] Address Unknown Phone Unavailable Care Team Providers Care Nanotechnology Technician Name Role Phone Pravin Proctor PCP Encounter Details Care Team Description Date Type Department [facility], Historical 02/12/2013 PracPart Note [facility] Social History Date Tobacco Use Types Packs/Day Years Used Never Assessed Sex Assigned at Date Recorded Not on file Industry Job Start Date Occupation Not on file Not on file Not on file Travel End Travel History Travel Start No recent travel history available. documented as of this encounter Progress Notes * [facility], Historical - 02/12/2013 11:40 AM CDT . :11:40AM .T:New Patient Packet - Appt 02/13/13 [facility] From: Mya Alarcon () Originated by: Mya Alarcon () Sent: 3 at 11:40AM To: Allison Oneal (JOE) Type: CHART Priority: 3 Attachment: INVALID LINK:Azeem Russell 1 new pt pkt for [id number] appt [facility] - [id number].t if|[id number]\\T:\\ppart\\Files\\[id number]\\[id number]\\[id number]\\VHJY751\\UXRZ528\\DUCI004 \\LRAP462\\WPVA851\\WMPI801\\FTWF902\\NHKC882\\YSCV362\\RNGL192\\FZDP687\\TGAS210\\[id number] \\PQTD207\\TKSE609\\[id number]\\[id number].tif Subject: New Patient Packet - Appt 02/13/13 [facility] documented in this encounter Plan of Treatment Not on filedocumented as of this encounter Visit Diagnoses Not on filedocumented in this encounter"
--- OUTSIDE RECORDS SUMMARY | 2020-01-04 17:41 | XMS REPORT | Encounter Summary ---
Author Author [facility] Organization [facility] Address Unknown Phone Unavailable Care Team Providers Care Wire Chief Name Role Phone Sydni Russell PCP Encounter Details Care Team Description Date Type Department [facility] Provider, MD Lars 05/17/2013 [facility] - Hist [facility] HISTORIC [...] nosis PROTHROMBIN TIME/INR Routine 05/17/2013 9:38 AM CERTIFIED ATHLETIC TRAINER documented in this encounter Results * Prothrombin Time/INR (05/17/2013 9:38 AM CERTIFIED ATHLETIC TRAINER) INR 1.86 NUCMED Comment: Lab Date: 20130516 Date Coumadin/warfarin started: 20100910 Location where INR performed: Lab Lab name and contact information: Iris 4 wks siri r/ Dr. Proctor([facility]), [phone], [phone] Patient Status: Diagnosis 1: Atrial fibrillation [facility] Diagnosis 2: Target INR Range: 2.0-3.0 Next Lab due: 20130531 Pending Procedure: NA Patient Instructions(comments): take 5mg today then cont 3.5mg daily ck in 2wks///spoke to Sydni, she v/u-hn(missed one dose) Comments (General Comments) : CALL Sydni with results. [phone] patient daughter patient is a pharm/sd Dr. Barney office [phone]/ fax [phone] 08-31-11 He is having trouble with the home meter. He will be retrained over the phone. jm Patient Notified: Yes (Tanna Rothman) Result reviewed by: Stacy Jaquez Supervising provider name: Eriberto Carrasquillo Specimen Performing Organization Address City/State/Zipcode Ph one Number NUCMED documented in this encounter Visit Diagnoses Not on filedocumented in this encounter
--- OUTSIDE RECORDS SUMMARY | 2020-01-04 17:41 | XMS REPORT | Encounter Summary ---
Author Author [facility] Organization [facility] Address Unknown Phone Unavailable Care Team Providers Care Supervisor Stave Finishing Name Role Phone Pravin Proctor PCP Encounter Details Care Team Description Date Type Department Dawit Ramon MD No Forwarding Address 02/02/2013 PracPart Note [facility] [address] [place] [address] Social History Date Tobacco Use Types Packs/Day [...] daughter, Dr. Sydni Russell From: Dawit Ramon ([facility]) Originated by: Dawit Ramon ([facility]) Sent: 013 at 01:00PM To: Jing Flores (CHRISTINA) Type: CHART Priority: 3 Subject: call from patient's daughter, Dr. Sydni Russell that's fine --- no contrast needed -- thanks sa Original Message: From: To: [facility] Subject: call from patient's daughter, Dr. Sydni [...] Ramon likely always orders this with d [facility] patients". She notes her father lives in [place], [place] and he could get this while in town if you deem it necessary at the appointment/evaluation. She w ill be coming with him to the appointment. Let me know your thoughts - po documented in this encounter Plan of Treatment Not on filedocumented as of this encounter Visit Diagnoses Not on filedocumented in this encounter
--- OUTSIDE RECORDS SUMMARY | 2020-01-04 17:41 | XMS REPORT | Encounter Summary ---
Author Author [facility] Organization [facility] Address Unknown Phone Unavailable Care Team Providers Care Cost Estimator Name Role Phone Sydni Russell PCP Encounter Details Care Team Description Date Type Department [facility] Provider, MD Lars 03/07/2013 [facility] - Hist [...] contact information: Iris Welch wkmariaelena waddell/ Dr. Proctor([facility]), [phone], [id number] Patient Status: Diagnosis 1: Atrial fibrillation [facility] Diagnosis 2: Target INR Range: 2.0-3.0 Next Lab due: 20130403 Pending Procedure: NA Patient Instructions(comments): cont 3.5mg daily ck in 4wks/// pt dtr v/u-ml Comments (General Comments) : CALL Sydni with results. [phone] patient daughter patient is a pharm/sd Dr. Barney office [phone]/ fax [phone] 08-31-11 He is having trouble with the home meter. He will be retrained over the phone. jm Patient Notified: Yes (Desi Armenta) Result reviewed by: Stacy Jaquez Supervising provider name: Eriberto Carrasquillo Specimen Performing Organization Address City/State/Zipcode Ph one Number NUCMED documented in this encounter Visit Diagnoses Not on filedocumented in this encounter
--- OUTSIDE RECORDS SUMMARY | 2020-01-04 17:41 | XMS REPORT | Encounter Summary ---
Author Author [facility] Organization [facility] Address Unknown Phone Unavailable Care Team Providers Care Extension Professor Name Role Phone Sydni Russell PCP Encounter Details Care Team Description Date Type Department Dawit Ramon MD No Forwarding Address 02/13/2013 [facility] Social History Date Tobacco Use [...] CDT . : 03:18pm .T: New Patient .PV:[facility] [address] [place] [address] [address] [facility] [address] [place] [address] [place] [address] [place] [address] [place] [address] Inga Ramon M.D. Dawit Ramon M.D. Patricia Slaughter M.D. Ольга Fox M.D. Neema Nguyễn D.O. Meet Zamorano M.D. Kalee Cuellar M.D. Jade Chavez M.D. Wander Cerna D.O. Wisam High M.D. Sherrie Leger, MSN,RN,ANP, [facility] Pravin Herrmann M.D., Ph.D. Fernando Paige M.D. Edson Flores M.D. 02/13/13 Pravin Proctor MD [facility] [place] [address] ( ) - RE: Azeem Russell : [...] ( Georgette Manuelell) on 02/13/13 at our [facility] Office for ev aluation [...] al ternating and successive movements were normal. Hppaer-ny-zvnx was intact witho ut dystaxia. No resting [...] :isidoro CC: Reid Tan M.D. [facility] [address] [place] [address] <<MP>> # SIGNED BY Dawit Ramon MD ([facility]) 02/13/2013 03:40PM documented in this encounter Plan of Treatment Not on filedocumented as of this encounter Visit Diagnoses Not on filedocumented in this encounter
--- OUTSIDE RECORDS SUMMARY | 2020-01-04 17:41 | XMS REPORT | Encounter Summary ---
Author Author [facility] Organization [facility] Address Unknown Phone Unavailable Care Team Providers Care Radiology Supervisor Name Role Phone Sydni Russell PCP Encounter Details Care Team Description Date [place] [address] [facility] [address] [place] [address] [phone] 04/18/2013 [facility] HISTORIC CLINI C [...] nosis PROTHROMBIN TIME/INR Routine 04/18/2013 1:56 PM COMPUTER TECHNOLOGIST documented in this encounter Results * Prothrombin Time/INR (04/18/2013 1:56 PM COMPUTER TECHNOLOGIST) INR 2.20 NUCMED Comment: Lab Date: [id number] Date Coumadin/warfarin started: 20100910 Location where INR performed: Lab Lab name and contact information: Iris Welch wks siri waddell/ Dr. Proctor([facility]), [id number], [id number] Patient Status: Diagnosis 1: Atrial fibrillation [facility] Diagnosis 2: Target INR Range: 2.0-3.0 Next Lab due: 20130516 Pending Procedure: NA Patient Instructions(comments): cont 3.5mg daily ck in 4wks---Sydni v/u sd Comments (General Comments) : CALL Sydni with results. [phone] patient daughter patient is a pharm/sd Dr. Barney office [phone]/ fax [phone] 08-31-11 He is having trouble with the home meter. He will be retrained over the phone. jm Patient Notified: Yes (Stacy Jaquez) Result reviewed by: Stacy Jaquez Supervising provider name: Eriberto Carrasquillo Specimen Performing Organization Address City/State/Zipcode Ph one Number NUCMED documented in this encounter Visit Diagnoses Not on filedocumented in this encounter
--- OUTSIDE RECORDS SUMMARY | 2020-01-04 17:41 | XMS REPORT | Encounter Summary ---
Author Author [facility] Organization [facility] Address Unknown Phone Unavailable Care Team Providers Care Chain Sales Consultant Name Role Phone Pravin Proctor PCP Encounter Details Care Team Description Date Type Department [facility], Historical 02/13/2013 PracPart Note [facility] Social History Date Tobacco Use Types Packs/Day Years Used Never Assessed Sex Assigned at Date Recorded Not on file Industry Job Start Date Occupation Not on file Not on file Not on file Travel End Travel History Travel Start No recent travel history available. documented as of this encounter Progress Notes * [facility], Historical - 02/13/2013 8:41 AM CDT . : 08:41am ADOPTED documented in this encounter Plan of Treatment Not on filedocumented as of this encounter Visit Diagnoses Not on filedocumented in this encounter
--- OUTSIDE RECORDS SUMMARY | 2020-01-04 17:41 | XMS REPORT | Encounter Summary ---
Author Author [facility] Organization [facility] Address Unknown Phone Unavailable Care Team Providers Care Drywall Worker Name Role Phone Pravin Proctor PCP Encounter Details Care Team Description Date Type Department [facility], Historical 02/02/2013 PracPart Note [facility] HIST [...] Notes * [facility], Historical - 02/02/2013 2:04 PM CDT [...] for MRI head without contrast on at [facility] around 2:30pm or after if [...] Dr. Ramon likely always orders this with [facility] patients". She notes her father lives in [place], [place] and he could get this while in town if you deem it necessary at the appointment/evaluation. She w ill be coming with him to the appointment. Let me know your thoughts - po documented in this encounter Plan of Treatment Not on filedocumented as of this encounter Visit Diagnoses Not on filedocumented in this encounter
--- OUTSIDE RECORDS SUMMARY | 2020-01-04 17:41 | XMS REPORT | Encounter Summary ---
Author Author [facility] Organization [facility] Address Unknown Phone Unavailable Care Team Providers Care Anatomic Pathologist Name Role Phone Sydni Russell PCP Encounter Details Care Team Description Date Type Department Eriberto Carrasquillo MD [address] [place] [address] [phone] 05/16/2013 [facility] [...] nosis PROTHROMBIN TIME/INR Routine 05/16/2013 4:14 PM CAREER GUIDANCE TECHNICIAN documented in this encounter Results * Prothrombin Time/INR (05/16/2013 4:14 PM CAREER GUIDANCE TECHNICIAN) INR NA NUCMED Comment: Lab Date: 20130516 Date Coumadin/warfarin started: 20100910 Location where INR performed: Lab Lab name and contact information: Iris waddell/ Dr. Proctor([facility]), [phone], [id number] Patient Status: Diagnosis 1: Atrial fibrillation [facility] Diagnosis 2: Target INR Range: 2.0-3.0 Next Lab due: 20130516 Pending Procedure: NA Patient Instructions(comments): pt drawn today, results pending-[facility] Comments (General Comments) : CALL Sydni with results. [phone] patient daughter patient is a pharm/sd Dr. Barney office [phone]/ fax [phone] 08-31-11 He is having trouble with the home meter. He will be retrained over the phone. jm Result reviewed by: Supervising provider name: Specimen Performing Organization Address City/State/Zipcode Ph one Number NUCMED documented in this encounter Visit Diagnoses Not on filedocumented in this encounter
--- OUTSIDE RECORDS SUMMARY | 2020-01-04 17:41 | XMS REPORT | Encounter Summary ---
Author Author [facility] Organization [facility] Address Unknown Phone Unavailable Care Team Providers Care Dive Master Name Role Phone Sydni Russell PCP Encounter Details Care Team Description Date Type Department Eriberto Carrasquillo MD [address] [place] [address] [phone] 05/28/2013 [facility] [...] nosis PROTHROMBIN TIME/INR Routine 05/28/2013 4:36 PM CLINICAL PROGRAM COORDINATOR documented in this encounter Results * Prothrombin Time/INR (05/28/2013 4:36 PM CLINICAL PROGRAM COORDINATOR) INR 2.26 NUCMED Comment: Lab Date: 20130528 Date Coumadin/warfarin started: 20100910 Location where INR performed: Lab Lab name and contact information: Iris waddell/ Dr. Proctor([facility]), [id number], [id number] Patient Status: Diagnosis 1: Atrial fibrillation [facility] Diagnosis 2: Target INR Range: 2.0-3.0 Next Lab due: 20130618 Pending Procedure: NA Patient Instructions(comments): cont 3.5mg daily and blayne 3wks; Sydni v/u-jcm Comments (General Comments) : CALL Sydni with results. [phone] patient daughter patient is a pharm/sd Dr. Barney office [phone]/ fax [phone] 08-31-11 He is having trouble with the home meter. He will be retrained over the phone. jm Patient Notified: Yes (Sena Francisco) Result reviewed by: Sena Francisco Supervising provider name: Eriberto Carrasquillo Specimen Performing Organization Address City/State/Zipcode Ph one Number NUCMED documented in this encounter Visit Diagnoses Not on filedocumented in this encounter
--- OUTSIDE RECORDS SUMMARY | 2020-01-04 17:41 | XMS REPORT | Encounter Summary ---
Author Author [facility] Organization [facility] Address Unknown Phone Unavailable Care Team Providers Care Procurement Analyst Name Role Phone Pravin Proctor PCP Encounter Details Care Team Description Date Type Department [facility], Historical 02/12/2013 PracPart Note [facility] Social History Date Tobacco Use Types Packs/Day Years Used Never Assessed Sex Assigned at Date Recorded Not on file Industry Job Start Date Occupation Not on file Not on file Not on file Travel End Travel History Travel Start No recent travel history available. documented as of this encounter Progress Notes * [facility], Historical - 02/12/2013 11:38 AM CDT . :11:38AM .T:New Patient Packet - Appt 02/13/13 [facility] From: Mya Alarcon () Originated by: Mya Alarcon () Sent: 3 at 11:38AM To: Allison Oneal (JOE) Type: CHART Priority: 3 Attachment: INVALID LINK:Azeem Russell new pt pkt for [id number] appt [facility] - [id number]. tif|[id number].tif Subject: New Patient Packet - Appt 02/13/13 [facility] documented in this encounter Plan of Treatment Not on filedocumented as of this encounter Visit Diagnoses Not on filedocumented in this encounter"
--- OUTSIDE RECORDS SUMMARY | 2020-01-04 17:41 | XMS REPORT | Encounter Summary ---
Author Author [facility] Organization [facility] Address Unknown Phone Unavailable Care Team Providers Care Top Polisher Name Role Phone Sydni Russell PCP Encounter Details Care Team Description Date Type Department [facility] ProviderLars MD 12/05/2012 [facility] - Hist [facility] H[facility]ORIC [facility]I C Visit Social History [...] information: Iris 4 bills siri waddell/ Dr. Proctor([facility]), [id number], [id number] Patient Status: Diagnosis 1: Atrial fibrillation [facility] Diagnosis 2: Target INR Range: 2.0-3.0 Next Lab due: 20121205 Pending Procedure: NA Patient Instructions(comments): take 5mg today then resume 3.5mg daily ck in 1 wk/sd---spoke with dtr v/u, dtr wont be able to take him until 12/11/2012 Comments (General Comments) : CALL Sydni with results. [phone]. 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 Barney office [phone]/ fax [phone] 08-31-11 He is having trouble with the home meter. He will be retrained over the phone. jm Patient Notified: Yes (Tanna Rothman) Result reviewed by: Stacy Jaquez Supervising provider name: Rach Monteiro Specimen Performing Organization Address City/State/Zipcoco Ph one Number NUCMED documented in this encounter Visit Diagnoses Not on filedocumented in this encounter
--- OUTSIDE RECORDS SUMMARY | 2020-01-04 17:41 | XMS REPORT | Encounter Summary ---
Author Author [facility] Organization [facility] Address Unknown Phone Unavailable Care Team Providers Care Spring Bender Name Role Phone Sydni Russell PCP Encounter Details Care Team Description Date Type Department [facility] Provider, MD Lars 01/25/2013 [facility] - Hist [facility] information: Iris 4 wks siri r/ Dr. Proctor([facility]), [phone], [id number] Patient Status: Diagnosis 1: Atrial fibrillation [facility] Diagnosis 2: Target INR Range: 2.0-3.0 Next Lab due: 20130221 Pending Procedure: NA Patient Instructions(comments): cont 3.5mg daily ck in 4 wk---Sydni v/u sd Comments (General Comments) : CALL Sydni with results. [phone] patient daughter patient is a pharm/sd Dr. Barney office [phone]/ fax [phone] 08-31-11 He is having trouble with the home meter. He will be retrained over the phone. jm Patient Notified: Yes (Stacy Jaquez) Result reviewed by: Stacy Jaquez Supervising provider name: Chirag Urrutia Specimen Performing Organization Address City/State/Zipcode Ph one Number NUCMED documented in this encounter Visit Diagnoses Not on filedocumented in this encounter
--- OUTSIDE RECORDS SUMMARY | 2020-01-04 17:41 | XMS REPORT | Encounter Summary ---
Author Author [facility] Organization [facility] Address Unknown Phone Unavailable Care Team Providers Care Game Technician Name Role Phone YvonneSydni PCP Encounter Details Care Team Description Date Type Department [facility] Provider, MD Lars 01/24/2013 [facility] - Hist [facility] HISTORIC CLINI C Visit Social History [...] information: Iris 4 wks siri r/ Dr. Proctor([facility]), [id number], [id number] Patient Status: Diagnosis 1: Atrial fibrillation [facility] Diagnosis 2: Target INR Range: 2.0-3.0 Next Lab due: [id number] Pending Procedure: NA Patient Instructions(comments): [facility] 01-22-13-- pt needs to check INR and remind pt to call Iris with results same day/// Sydni states pt is going to to have checked tomorrow-jcm Comments (General Comments) : CALL Sydni with results. [phone] patient daughter patient is a pharm/sd Dr. Barney office [phone]/ fax [phone] 08-31-11 He is having trouble with the home meter. He will be retrained over the phone. jm Patient Notified: Yes (Sena Francisco) Result reviewed by: Stacy Jaquez Supervising provider name: Specimen Performing Organization Address City/State/Zipcode Ph one Number NUCMED documented in this encounter Visit Diagnoses Not on filedocumented in this encounter
--- OUTSIDE RECORDS SUMMARY | 2020-01-04 17:41 | XMS REPORT | Encounter Summary ---
Author Author [facility] Organization [facility] Address Unknown Phone Unavailable Care Team Providers Care Giving Officer Name Role Phone Sydni Russell PCP Encounter Details Care Team Description Date Type Department [facility] Provider, MD Lars 12/06/2012 [facility] - Hist [facility] [...] information: Iris 4 wks siri r/ Dr. Proctor([facility]), [id number], [id number] Patient Status: Diagnosis 1: Atrial fibrillation [facility] Diagnosis 2: Target INR Range: 2.0-3.0 Next Lab due: 20121219 Pending Procedure: NA Patient Instructions(comments): cont 3.5mg daily ck in 2 wk///spoke to Sydni v/u---hn Comments (General Comments) : CALL Sydni with results. [phone]. 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 Barney office [phone]/ fax [phone] 08-31-11 He is having trouble with the home meter. He will be retrained over the phone. jm Patient Notified: Yes (Tanna Rothman) Result reviewed by: Tonja Nice Supervising provider name: Eriberto Carrasquillo Specimen Performing Organization Address City/State/Zipcode Ph one Number NUCMED documented in this encounter Visit Diagnoses Not on filedocumented in this encounter
--- OUTSIDE RECORDS SUMMARY | 2020-01-04 17:41 | XMS REPORT | Encounter Summary ---
Author Author [facility] Organization [facility] Address Unknown Phone Unavailable Care Team Providers Care Lpn Rn Hospice Name Role Phone Sydni Russell PCP Encounter Details Care Team Description Date Type Department Maricel Urbina MD [address] [facility] [address] [place] [address] [phone] 04/05/2013 [facility] Hist [facility] HISTORIC [...] name and contact information: Iris waddell/ Dr. Proctor([facility]), [id number], [id number] Patient Status: Diagnosis 1: Atrial fibrillation [facility] Diagnosis 2: Target INR Range: 2.0-3.0 Next Lab due: 20130502 Pending Procedure: NA Patient Instructions(comments): cont 3.5mg daily ck in 4wks/hn//// Sydni v/u--ml Comments (General Comments) : CALL Sydni with results. [phone] patient daughter patient is a pharm/sd Dr. Barney office [phone]/ fax [phone] 08-31-11 He is having trouble with the home meter. He will be retrained over the phone. jm Patient Notified: Yes (Desi Armenta) Result reviewed by: Tanna Rothman Supervising provider name: Eriberto Carrasquillo Specimen Performing Organization Address City/State/Zipcode Ph one Number NUCMED documented in this encounter Visit Diagnoses Not on filedocumented in this encounter
--- OUTSIDE RECORDS SUMMARY | 2020-01-04 17:41 | XMS REPORT | Encounter Summary ---
Author Author [facility] Organization [facility] Address Unknown Phone Unavailable Care Team Providers Care Net Lead Architect Name Role Phone Pravin Proctor PCP Encounter Details Care Team Description Date Type Department [facility], Historical 02/13/2013 PracPart Note [facility] Social History Date Tobacco Use Types Packs/Day Years Used Never Assessed Sex Assigned at Date Recorded Not on file Industry Job Start Date Occupation Not on file Not on file Not on file Travel End Travel History Travel Start No recent travel history available. documented as of this encounter Progress Notes * [facility], Historical - 02/13/2013 8:40 AM CDT [...]
[2020-01-04] MEDS ORDERED: NS IV 1000 ML 1,000 ML ONE (17:42)
--- OUTSIDE RECORDS SUMMARY | 2020-01-04 17:42 | XMS REPORT | Encounter Summary ---
Author Author [facility] Organization [facility] Address Unknown Phone Unavailable Care Team Providers Care Talent Development Analyst Name Role Phone Sydni Russell PCP Encounter Details Care Team Description Date Type Department Reid Stock MD [address] [facility] [address] [place], [place] [id number] 01/14/2012 [facility] Hist [facility] [...] contact information: Iris Welch wkmariaelena waddell/ Dr. Proctor([facility]), [phone], [phone] Patient Status: Diagnosis 1: Atrial fibrillation [facility] [...] (General Comments) : CALL Sydni with results. [phone]. 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 Barney office [phone]/ fax [phone] 08-31-11 He is having trouble with the home meter. He will be retrained over the phone. jose Result reviewed by: Supervising provider name: Specimen Performing Organization Address City/State/Zipcode Ph one Number NUCMED documented in this encounter Visit Diagnoses Not on filedocumented in this encounter
--- OUTSIDE RECORDS SUMMARY | 2020-01-04 17:42 | XMS REPORT | Encounter Summary ---
Author Author [facility] Organization [facility] Address Unknown Phone Unavailable Care Team Providers Care Offal Baler Name Role Phone Sydni Russell PCP Encounter Details Care Team Description Date Type Department [facility] Provider, MD Lars 01/26/2012 [facility] - Hist [facility] Visit Social History Date [...] information: Iris 4 wks siri r/ Dr. Proctor([facility]), [id number], [id number] Patient Status: Diagnosis 1: Atrial fibrillation [facility] Diagnosis 2: Target INR Range: 2.0-3.0 Next Lab due: 20120222 Pending Procedure: NA Patient Instructions(comments): cont 3.5mg daily and recheck in 4 wks. cjj--- Sydni v/u sd Comments (General Comments) : CALL Sydni with results. [phone]. 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 Barney office [phone]/ fax [phone] 08-31-11 He is having trouble with the home meter. He will be retrained over the phone. jm Patient Notified: Yes (Stacy Jaquez) Result reviewed by: Citlali Wolfe Supervising provider name: Eriberto Carrasquillo Specimen Performing Organization Address City/State/Zipcode Ph one Number NUCMED documented in this encounter Visit Diagnoses Not on filedocumented in this encounter
--- OUTSIDE RECORDS SUMMARY | 2020-01-04 17:42 | XMS REPORT | Encounter Summary ---
Author Author [facility] Organization [facility] Address Unknown Phone Unavailable Care Team Providers Care Tool Drawing Checker Name Role Phone Sydni Russell PCP Encounter Details Care Team Description Date Type Department [facility] ProviderLars MD 10/17/2012 [facility] - Hist [facility] [...] information: Iris 4 wks siri r/ Dr. Proctor([facility]), [id number], [id number] Patient Status: Diagnosis 1: Atrial fibrillation [facility] Diagnosis 2: Target INR Range: 2.0-3.0 Next Lab due: 20121114 Pending Procedure: NA Patient Instructions(comments): cont 3.5mg daily abnd recheck in 4 wks. cjj--- Sydni v/u sd Comments (General Comments) : CALL Sydni with results. [phone]. 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 Barney office [phone]/ fax [phone] 08-31-11 He is having trouble with the home meter. He will be retrained over the phone. jm Patient Notified: Yes (Stacy Jaquez) Result reviewed by: Citlali Wolfe Supervising provider name: Eriberto Carrasquillo Specimen Performing Organization Address City/State/Zipcode Ph one Number NUCMED documented in this encounter Visit Diagnoses Not on filedocumented in this encounter
--- OUTSIDE RECORDS SUMMARY | 2020-01-04 17:42 | XMS REPORT | Encounter Summary ---
Author Author [facility] Organization [facility] Address Unknown Phone Unavailable Care Team Providers Care Grinder Set Up Operator Thread Tool Name Role Phone YvonneSydni head PCP Encounter Details Care Team Description Date Type Department [facility] ProviderLars MD 06/20/2012 [facility] - Hist [facility] C Visit Social [...] nosis PROTHROMBIN TIME/INR Routine 06/14/2012 8:35 AM BILL HIKER documented in this encounter Results * Prothrombin Time/INR (06/14/2012 8:35 AM BILL HIKER) INR 2.64 NUCMED Comment: Lab Date: [id number] Date Coumadin/warfarin started: 20100910 Location where INR performed: Lab Lab name and contact information: Iris 4 wks siri r/ Dr. Proctor([facility]), [id number], [id number] Patient Status: Diagnosis 1: Atrial fibrillation [facility] Diagnosis 2: Target INR Range: 2.0-3.0 Next Lab due: 20120711 Pending Procedure: NA Patient Instructions(comments): cont. 3.5mg daily. ck. in 4wks/// spoke to celina mcgee/u-jcsven Comments (General Comments) : CALL Sydni with results. [phone]. 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 Barney office [phone]/ fax [phone] 08-31-11 He is having trouble with the home meter. He will be retrained over the phone. jm Patient Notified: Yes (Sena Francisco) Result reviewed by: Stacy Jaquez Supervising provider name: Blane Dorantes Specimen Performing Organization Address City/State/Zipcode Ph one Number NUCMED documented in this encounter Visit Diagnoses Not on filedocumented in this encounter
--- OUTSIDE RECORDS SUMMARY | 2020-01-04 17:42 | XMS REPORT | Encounter Summary ---
Author Author [facility] Organization [facility] Address Unknown Phone Unavailable Care Team Providers Care Chili Powder Mixer Name Role Phone Sydni Russell PCP Encounter Details Care Team Description Date Type Department Reid Stock MD [address] [facility] [address] [place] [address] [phone] 08/04/2012 [facility] Hist [facility] [...] Comments Vital Sign 130/82 08/04/2012 2:57 PM ALKYLATION OPERATOR Blood Pressure 110 08/04/2012 2:57 PM ALKYLATION OPERATOR Pulse - - Temperature - - Respiratory Rate - - Oxygen Saturation - - Inhaled Oxygen Concentration 76.2 kg (168 lb) 08/04/2012 2:57 PM ALKYLATION OPERATOR overweight Weight 172.7 cm (5' 8") 08/04/2012 2:57 PM ALKYLATION OPERATOR Height 25.54 08/04/2012 2:57 PM ALKYLATION OPERATOR Body Mass Index documented in this encounter Progress Notes * Reid Stock MD - 08/04/2012 2:30 PM ALKYLATION OPERATOR [facility] Office [address] [place] [address] August 04, 2012 Pravin Proctor MD [address] [place] [address] RE: TENISHA RUSSELL : 1935 Chart #: [id number] Visit provider: Reid Welch M.D. Visit location: [facility] Dear Dr. Proctor: I had the [...] not hesitate to contact me. Sincerely, Reid ABNSAL:laureen F: 08/07/2012 LATION OPERATOR documented in this encounter Plan of Treatment Not on filedocumented as of this encounter Visit Diagnoses Not on filedocumented in this encounter
--- OUTSIDE RECORDS SUMMARY | 2020-01-04 17:42 | XMS REPORT | Encounter Summary ---
Author Author [facility] Organization [facility] Address Unknown Phone Unavailable Care Team Providers Care Vacuum Applicator Operator Name Role Phone Sydni Russell PCP Encounter Details Care Team Description Date Type Department Altaf Vasques MD [address] [facility] [address] [place], [place] [id number] 10/03/2012 [facility] - Hist [facility] HISTORIC CLINI [...] information: Iris Welch wks siri waddell/ Dr. Proctor([facility]), [id number], [id number] Patient Status: Diagnosis 1: Atrial fibrillation [facility] Diagnosis 2: Target INR Range: 2.0-3.0 Next Lab due: 20121031 Pending Procedure: NA Patient Instructions(comments): cont 3.5mg daily and recheck in 4 wks. latha----Sydni v/u adina Comments (General Comments) : CALL Sydni with results. [phone]. 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 Barney office [phone]/ fax [phone] 08-31-11 He is having trouble with the home meter. He will be retrained over the phone. jm Patient Notified: Yes (Stacy Jaquez) Result reviewed by: Citlali Wolfe Supervising provider name: Eriberto Carrasquillo Specimen Performing Organization Address City/State/Zipcode Ph one Number NUCMED documented in this encounter Visit Diagnoses Not on filedocumented in this encounter
--- OUTSIDE RECORDS SUMMARY | 2020-01-04 17:42 | XMS REPORT | Encounter Summary ---
Author Author [facility] Organization [facility] Address Unknown Phone Unavailable Care Team Providers Care Inking Machine Tender Name Role Phone Sydni Russell PCP Encounter Details Care Team Description Date Type Department Eriberto Carrasquillo MD [address] [place] [address] [phone] 11/22/2012 [facility] [...] name and contact information: Iris waddell/ Dr. Proctor([facility]), [id number], [id number] Patient Status: Diagnosis 1: Atrial fibrillation [facility] Diagnosis 2: Target INR Range: 2.0-3.0 Next Lab due: 20121128 Pending Procedure: NA Patient Instructions(comments): spoke with dtr Sydni will have pt get INR next Tue---hdn Comments (General Comments) : CALL Sydni with results. [phone]. 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 Barney office [phone]/ fax [phone] 08-31-11 He is having trouble with the home meter. He will be retrained over the phone. jm Patient Notified: Yes (Tanna Rothman) Result reviewed by: Tanna Rothman Supervising provider name: Specimen Performing Organization Address City/State/Zipcode Ph one Number NUCMED documented in this encounter Visit Diagnoses Not on filedocumented in this encounter
--- OUTSIDE RECORDS SUMMARY | 2020-01-04 17:42 | XMS REPORT | Encounter Summary ---
Author Author [facility] Organization [facility] Address Unknown Phone Unavailable Care Team Providers Care Grades 7 And 8 Teacher Name Role Phone Sydni Russell PCP Encounter Details Care Team Description Date Type Department Altaf Vasques MD [address] [facility] [address] [place], [place] [id number] 06/29/2012 [facility] - Hist [facility] HISTORIC CL[facility]I C Visit Social [...] nosis PROTHROMBIN TIME/INR Routine 06/29/2012 3:16 PM CREDIT HISTORIAN documented in this encounter Results * Prothrombin Time/INR (06/29/2012 3:16 PM CREDIT HISTORIAN) INR 2.60 NUCMED Comment: Lab Date: [id number] Date Coumadin/warfarin started: 20100910 Location where INR performed: Lab Lab name and contact information: Iris 4 wks siri r/ Dr. Proctor([facility]), [id number], [id number] Patient Status: Diagnosis 1: Atrial fibrillation [facility] Diagnosis 2: Target INR Range: 2.0-3.0 Next Lab due: 20120727 Pending Procedure: NA Patient Instructions(comments): cont 3.5mg daily ck in 4 wk/sd---left message with results and instructions on patients daughter Sydni. cjj Comments (General Comments) : CALL Sydni with results. [phone]. 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 Barney office [phone]/ fax [phone] 08-31-11 He is having trouble with the home meter. He will be retrained over the phone. jm Patient Notified: Yes (Citlali Wolfe) Result reviewed by: Stacy Jaquez Supervising provider name: Eriberto Carrasquillo Specimen Performing Organization Address City/State/Zipcode Ph one Number NUCMED documented in this encounter Visit Diagnoses Not on filedocumented in this encounter
--- OUTSIDE RECORDS SUMMARY | 2020-01-04 17:42 | XMS REPORT | Encounter Summary ---
Author Author [facility] Organization [facility] Address Unknown Phone Unavailable Care Team Providers Care Integration Analyst Name Role Phone Sydni Russell PCP Encounter Details Care Team Description Date Type Department Veda Puga MD [address] [facility] [address] [place], [place] [phone] 05/04/2012 [facility] nosis PROTHROMBIN TIME/INR Routine 05/05/2012 8:59 AM PRODUCT SUPPORT REPRESENTATIVE documented in this encounter Results * Prothrombin Time/INR (05/05/2012 8:59 AM PRODUCT SUPPORT REPRESENTATIVE) INR 2.40 NUCMED Comment: Lab Date: 20120504 Date Coumadin/warfarin started: 20100910 Location where INR performed: Lab Lab name and contact information: Iris 4 wks siri waddell/ Dr. Proctor([facility]), [id number], [id number] Patient Status: Diagnosis 1: Atrial fibrillation [facility] Diagnosis 2: Target INR Range: 2.0-3.0 Next Lab due: 20120601 Pending Procedure: NA Patient Instructions(comments): cont. 3.5mg daily. ck. in 4wks./lm--- Sydni v/u sd Comments (General Comments) : CALL Sydni with results. [phone]. 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 Barney office [phone]/ fax [phone] 08-31-11 He is having trouble with the home meter. He will be retrained over the phone. jm Patient Notified: Yes (Stacy Jaquez) Result reviewed by: Remedios Bianchi Supervising provider name: Eriberto Carrasquillo Specimen Performing Organization Address City/State/Zipcode Ph one Number NUCMED documented in this encounter Visit Diagnoses Not on filedocumented in this encounter
--- OUTSIDE RECORDS SUMMARY | 2020-01-04 17:42 | XMS REPORT | Encounter Summary ---
Author Author [facility] Organization [facility] Address Unknown Phone Unavailable Care Team Providers Care Quality Control Assessor Name Role Phone Sydni Russell PCP Encounter Details Care Team Description Date Type Department Elie Ding MD [address] [facility] [address] [place] [address] [phone] 04/19/2012 [facility] Hist [facility] [...] nosis PROTHROMBIN TIME/INR Routine 04/19/2012 10:44 AM ADJUNCT INSTRUCTOR IN ECONOMICS documented in this encounter Results * Prothrombin Time/INR (04/19/2012 10:44 AM ADJUNCT INSTRUCTOR IN ECONOMICS) INR NA NUCMED Comment: Lab Date: 20120419 Date Coumadin/warfarin started: 20100910 Location where INR performed: Lab Lab name and contact information: Iris waddell/ Dr. Proctor([facility]), [id number], [id number] Patient Status: Diagnosis 1: Atrial fibrillation [facility] Diagnosis 2: Target INR Range: 2.0-3.0 Next Lab due: 20120420 Pending Procedure: NA Patient Instructions(comments): Per Sydni he will have his PT/INR checked tomorrow at his doctors office. jose Comments (General Comments) : CALL Sydni with results. [phone]. 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 Barney office [phone]/ fax [phone] 08-31-11 He is having trouble with the home meter. He will be retrained over the phone. jose Result reviewed by: Supervising provider name: Specimen Performing Organization Address City/State/Zipcode Ph one Number NUCMED documented in this encounter Visit Diagnoses Not on filedocumented in this encounter
--- OUTSIDE RECORDS SUMMARY | 2020-01-04 17:42 | XMS REPORT | Encounter Summary ---
Author Author [facility] Organization [facility] Address Unknown Phone Unavailable Care Team Providers Care Installer Name Role Phone Sydni Russell PCP Encounter Details Care Team Description Date Type Department Dustin Pittman MD No Forwarding Address 03/10/2012 [facility] - Hist [facility] HISTORIC CLINI [...] name and contact information: Iris waddell/ Dr. Proctor([facility]), [id number], [id number] Patient Status: Diagnosis 1: Atrial fibrillation [facility] Diagnosis 2: Target INR Range: 2.0-3.0 Next Lab due: 20120407 Pending Procedure: NA Patient Instructions(comments): cont 3.5mg daily, blayne 4wks./lm......... spoke to celina mcgee/u--jcm Comments (General Comments) : CALL Sydni with results. [phone]. 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 Barney office [phone]/ fax [phone] 08-31-11 He is having trouble with the home meter. He will be retrained over the phone. jm Patient Notified: Yes (Sena Francisco) Result reviewed by: Remedios Bianchi Supervising provider name: Eriberto Carrasquillo Specimen Performing Organization Address City/State/Zipcode Ph one Number NUCMED documented in this encounter Visit Diagnoses Not on filedocumented in this encounter
--- OUTSIDE RECORDS SUMMARY | 2020-01-04 17:42 | XMS REPORT | Encounter Summary ---
Author Author [facility] Organization [facility] Address Unknown Phone Unavailable Care Team Providers Care Honing Machine Operator Semiautomatic Name Role Phone PCP Unavailable Encounter Details Care Team Description Date Type Department Reid Stock MD [address] [facility] [place] [address] [place] [address] [phone] Occlusion and stenosis of carotid artery without mention of cerebral infarction 08/04/2012 [place] [address] Social History Date Tobacco Use Types Packs/Day [...]
--- OUTSIDE RECORDS SUMMARY | 2020-01-04 17:42 | XMS REPORT | Encounter Summary ---
Author Author [facility] Organization [facility] Address Unknown Phone Unavailable Care Team Providers Care Nurses Educator Name Role Phone YvonneSydni head PCP Encounter Details Care Team Description Date Type Department [facility] ProviderLars MD 08/10/2012 [facility] - Hist [facility] HISTORIC CLINI C Visit Social History [...] nosis PROTHROMBIN TIME/INR Routine 08/09/2012 8:41 AM MUSIC VIDEO DIRECTOR documented in this encounter Results * Prothrombin Time/INR (08/09/2012 8:41 AM MUSIC VIDEO DIRECTOR) INR 2.40 NUCMED Comment: Lab Date: [id number] Date Coumadin/warfarin started: 20100910 Location where INR performed: Lab Lab name and contact information: Iris 4 wks siri waddell/ Dr. Proctor([facility]), [id number], [id number] Patient Status: Diagnosis 1: Atrial fibrillation [facility] Diagnosis 2: Target INR Range: 2.0-3.0 Next Lab due: 20120905 Pending Procedure: NA Patient Instructions(comments): 08-09-2012 cont 3.5mg daily and recheck in 4 wkws. cjj/// spoke to celina mcgee/ammon Comments (General Comments) : CALL Sydni with results. [phone]. 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 Barney office [phone]/ fax [phone] 08-31-11 He is having trouble with the home meter. He will be retrained over the phone. jm Patient Notified: Yes (Sena Francisco) Result reviewed by: Citlali Wolfe Supervising provider name: Jed Christiansen Specimen Performing Organization Address City/State/Zipcode Ph one Number NUCMED documented in this encounter Visit Diagnoses Not on filedocumented in this encounter
--- OUTSIDE RECORDS SUMMARY | 2020-01-04 17:42 | XMS REPORT | Encounter Summary ---
Author Author [facility] Organization [facility] Address Unknown Phone Unavailable Care Team Providers Care Yard Jacker Name Role Phone Sydni Russell PCP Encounter Details Care Team Description Date Type Department Reid Stock MD [address] [facility] [address] [place] [address] [phone] 08/02/2012 [facility] - Hist [...] Reid Stock MD - 08/02/2012 2:48 PM DETECTIVE HOMICIDE SQUAD Release of Information RE: TENISHA RUSSELL : 1935 [facility] is requesting protected health informat ion from: _Dr. Pravin Proctor____ Purpose: Continuation of care Please release records to the following [facility] Office: [facility] Office [address] [place] [address] or Fax to : Attention : Clemente Fabian Chart Spice Mixer Please send the following: Most recent office [...] above address via the U.[employer]. Postal Service. [employer] documented in this encounter Plan of Treatment Not on filedocumented as of this encounter Visit Diagnoses Not on filedocumented in this encounter
--- OUTSIDE RECORDS SUMMARY | 2020-01-04 17:42 | XMS REPORT | Encounter Summary ---
Author Author [facility] Organization [facility] Address Unknown Phone Unavailable Care Team Providers Care Auto Body Man Name Role Phone Sydni Russell PCP Encounter Details Care Team Description Date Type Department [facility] Provider, MD Lars 08/04/2012 [facility] HISTORIC CLINI C Result Social History [...]
--- OUTSIDE RECORDS SUMMARY | 2020-01-04 17:42 | XMS REPORT | Encounter Summary ---
Author Author [facility] Organization [facility] Address Unknown Phone Unavailable Care Team Providers Care Pump Oiler Name Role Phone [place] head PCP Encounter Details Care Team Description Date Type Department Reid Stock MD [address] [facility] [address] [place] [address] [phone] 07/24/2012 [facility] - Hist [facility] HISTORIC [...]
--- OUTSIDE RECORDS SUMMARY | 2020-01-04 17:42 | XMS REPORT | Encounter Summary ---
Author Author [facility] Organization [facility] Address Unknown Phone Unavailable Care Team Providers Care Grain Elevator Operator Name Role Phone Sydni Russell PCP Encounter Details Care Team Description Date Type Department [facility] Provider, MD Lars 09/28/2012 [facility] [...] information: Iris 4 wks siri waddell/ Dr. Proctor([facility]), [id number], [phone] Patient Status: Diagnosis 1: Atrial fibrillation [facility] Diagnosis 2: Target INR Range: 2.0-3.0 Next Lab due: 20121003 Pending Procedure: NA Patient Instructions(comments): Sydni will have to check on TUe/sd Comments (General Comments) : CALL Sydni with results. [phone]. 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 Barney office [phone]/ fax [phone] 08-31-11 He is having trouble with the home meter. He will be retrained over the phone. jm Patient Notified: Yes (Stacy Jaquez) Result reviewed by: Stacy Jaquez Supervising provider name: Specimen Performing Organization Address City/State/Zipcode Ph one Number NUCMED documented in this encounter Visit Diagnoses Not on filedocumented in this encounter
--- OUTSIDE RECORDS SUMMARY | 2020-01-04 17:42 | XMS REPORT | Encounter Summary ---
Author Author [facility] Organization [facility] Address Unknown Phone Unavailable Care Team Providers Care Photographic Plate Maker Name Role Phone Sydni Russell PCP Encounter Details Care Team Description Date Type Department Eriberto Carrasquillo MD [address] [place] [address] [phone] 02/22/2012 [facility] [...] contact information: Iris 4 wkmariaelena waddell/ Dr. Proctor([facility]), [id number], [phone] Patient Status: Diagnosis 1: Atrial fibrillation [facility] Diagnosis 2: Target INR Range: 2.0-3.0 Next Lab due: 20120321 Pending Procedure: NA Patient Instructions(comments): cont 3.5mg daily, blayne 4wks-jcm---Sydni v/u adina Comments (General Comments) : CALL Sydni with results. [phone]. 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 Barney office [phone]/ fax [phone] 08-31-11 He is having trouble with the home meter. He will be retrained over the phone. Patient Notified: Yes (Stacy Jaquez) Result reviewed by: Sena Francisco Supervising provider name: Eriberto Carrasquillo Specimen Performing Organization Address City/State/Zipcode Ph one Number NUCMED documented in this encounter Visit Diagnoses Not on filedocumented in this encounter
--- OUTSIDE RECORDS SUMMARY | 2020-01-04 17:42 | XMS REPORT | Encounter Summary ---
Author Author [facility] Organization [facility] Address Unknown Phone Unavailable Care Team Providers Care Senior Java Data Architect Name Role Phone Arely Russell PCP Encounter Details Care Team Description Date Type Department Eriberto Carrasquillo MD [address] [place] [address] [phone] 12/05/2012 [facility] [...] name and contact information: Iris waddell/ Dr. Proctor([facility]), [phone], [id number] Patient Status: Diagnosis 1: Atrial fibrillation [facility] Diagnosis 2: Target INR Range: 2.0-3.0 Next Lab due: 20121206 Pending Procedure: NA Patient Instructions(comments): spoke to re: they want to keep using home meter at all, she's unsure. spoke to arely, said that she and her sister would try and help them use the meter at least a couple times a month. Comments (General Comments) : CALL Arely with results. [phone]. 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 Barney office [phone]/ fax [phone] 08-31-11 He is having trouble with the home meter. He will be retrained over the phone. jm Result reviewed by: Sena Francisco Supervising provider name: Specimen Performing Organization Address City/State/Zipcode Ph one Number NUCMED documented in this encounter Visit Diagnoses Not on filedocumented in this encounter
--- OUTSIDE RECORDS SUMMARY | 2020-01-04 17:42 | XMS REPORT | Encounter Summary ---
Author Author [facility] Organization [facility] Address Unknown Phone Unavailable Care Team Providers Care Center Administrator Name Role Phone Sydni Russell PCP Encounter Details Care Team Description Date Type Department [facility] Provider, MD Lars 01/14/2012 [facility] - Hist [...] and contact information: Iris Mike Meter/ Dr. Proctor([facility]), [phone], [id number] Patient Status: Diagnosis 1: Atrial fibrillation [facility] Diagnosis 2: Target INR Range: 2.0-3.0 Next Lab due: 20120113 Pending Procedure: NA Patient Instructions(comments): Cont 3.5mg daily. Recheck 2 weeks.--- v/u sd (Sydni called back, gave results. Voiced understnading. KD) Comments (General Comments) : CALL Sydni with results. [phone]. 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 Barney office [phone]/ fax [phone] 08-31-11 He is having trouble with the home meter. He will be retrained over the phone. jm Patient Notified: Yes (Stacy Jaquez) Result reviewed by: Tonja Nice Supervising provider name: Eriberto Carrasquillo Specimen Performing Organization Address City/State/Zipcode Ph one Number NUCMED documented in this encounter Visit Diagnoses Not on filedocumented in this encounter
--- OUTSIDE RECORDS SUMMARY | 2020-01-04 17:42 | XMS REPORT | Encounter Summary ---
Author Author [facility] Organization [facility] Address Unknown Phone Unavailable Care Team Providers Care Cytologist Name Role Phone Sydni Russell PCP Encounter Details Care Team Description Date Type Department Dustin Pittman MD No Forwarding Address 06/12/2012 [facility] - Hist [facility] HISTORIC CLINI C Visit Social [...] nosis PROTHROMBIN TIME/INR Routine 06/12/2012 10:04 AM ALLOY WEIGHER documented in this encounter Results * Prothrombin Time/INR (06/12/2012 10:04 AM ALLOY WEIGHER) INR NA NUCMED Comment: Lab Date: 20120612 Date Coumadin/warfarin started: 20100910 Location where INR performed: Lab Lab name and contact information: Iris wdadell/ Dr. Proctor([facility]), [id number], [id number] Patient Status: Diagnosis 1: Atrial fibrillation [facility] Diagnosis 2: Target INR Range: 2.0-3.0 Next Lab due: 20120613 Pending Procedure: NA Patient Instructions(comments): Spoke with pts. Bernice she said pt. will ck. tomorrow./lm Comments (General Comments) : CALL Sydni with results. [phone]. 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 Barney office [phone]/ fax [phone] 08-31-11 He is having trouble with the home meter. He will be retrained over the phone. jm Patient Notified: Yes (Remedios Bianchi) Result reviewed by: Remedios Bianchi Supervising provider name: Specimen Performing Organization Address City/State/Zipcode Ph one Number NUCMED documented in this encounter Visit Diagnoses Not on filedocumented in this encounter
--- OUTSIDE RECORDS SUMMARY | 2020-01-04 17:42 | XMS REPORT | Encounter Summary ---
Author Author [facility] Organization [facility] Address Unknown Phone Unavailable Care Team Providers Care Drafting Layout Worker Name Role Phone Sydni Russell PCP Encounter Details Care Team Description Date Type Department Eriberto Carrasquillo MD [address] [place] [address] [phone] 04/21/2012 [facility] [...] nosis PROTHROMBIN TIME/INR Routine 04/21/2012 11:15 AM CALL CENTER NURSE documented in this encounter Results * Prothrombin Time/INR (04/21/2012 11:15 AM CALL CENTER NURSE) INR 2.40 NUCMED Comment: Lab Date: 20120421 Date Coumadin/warfarin started: 20100910 Location where INR performed: Lab Lab name and contact information: Iris waddell/ Dr. Proctor([facility]), [phone], [id number] Patient Status: Diagnosis 1: Atrial fibrillation [facility] Diagnosis 2: Target INR Range: 2.0-3.0 Next Lab due: 20120519 Pending Procedure: NA Patient Instructions(comments): cont 3.5mg daily, blayne 4wks-jcm----Spoke with pts. dttr. Sydni. She will notify pt. v/u/lm Comments (General Comments) : CALL Sydni with results. [phone]. 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 Barney office [phone]/ fax [phone] 08-31-11 He is having trouble with the home meter. He will be retrained over the phone. Patient Notified: Yes (Remedios Bianchi) Result reviewed by: Sena Francisco Supervising provider name: Eriberto Carrasquillo Specimen Performing Organization Address City/State/Zipcode Ph one Number NUCMED documented in this encounter Visit Diagnoses Not on filedocumented in this encounter
--- OUTSIDE RECORDS SUMMARY | 2020-01-04 17:42 | XMS REPORT | Encounter Summary ---
Author Author [facility] Organization [facility] Address Unknown Phone Unavailable Care Team Providers Care Automotive Leasing Sales Representative Name Role Phone Sydni Russell PCP Encounter Details Care Team Description Date Type Department [facility] ProviderLars MD 08/22/2012 [facility] - Hist [facility] [...] information: Iris 4 wks siri waddell/ Dr. Proctor([facility]), [phone], [id number] Patient Status: Diagnosis 1: Atrial fibrillation [facility] Diagnosis 2: Target INR Range: 2.0-3.0 Next Lab due: 20120919 Pending Procedure: NA Patient Instructions(comments): cont 3.5mg daily and recheck in 4 wkws---spoke to patients daughter Sydni and she voiced understanding. cjj Comments (General Comments) : CALL Sydni with results. [phone]. 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 Barney office [phone]/ fax [phone] 08-31-11 He is having trouble with the home meter. He will be retrained over the phone. jm Patient Notified: Yes (Citlali Wolfe) Result reviewed by: Stacy Jaquez Supervising provider name: Eriberto Carrasquillo Specimen Performing Organization Address City/State/Zipcode Ph one Number NUCMED documented in this encounter Visit Diagnoses Not on filedocumented in this encounter
--- OUTSIDE RECORDS SUMMARY | 2020-01-04 17:42 | XMS REPORT | Encounter Summary ---
Author Author [facility] Organization [facility] Address Unknown Phone Unavailable Care Team Providers Care Chemical Worker Name Role Phone Sydni Russell PCP Encounter Details Care Team Description Date Type Department Reid Stock MD [address] [place] [address] [phone] 08/09/2012 [facility] [...] Reid Stock MD - 08/09/2012 9:[address] [facility] [place] Office [address] [place] [address] 08/10/2012 Pravin Proctor MD [facility] [place] [address] Re: TENISHA RUSSELL : 1935 Chart#: [id number] Dear Dr. Proctor: This is a followup [...] Reid Welch M.D. cc: Pravin Proctor MD [facility] [place] [address] IFIED DIABETES EDUCATOR documented in this encounter Plan of Treatment Not on filedocumented as of this encounter Visit Diagnoses Not on filedocumented in this encounter
--- OUTSIDE RECORDS SUMMARY | 2020-01-04 17:42 | XMS REPORT | Encounter Summary ---
Author Author [facility] Organization [facility] Address Unknown Phone Unavailable Care Team Providers Care Fish Hatchery Worker Name Role Phone Sydni Russell PCP Encounter Details Care Team Description Date Type Department Dustin Pittman MD No Forwarding Address 06/20/2012 [facility] - Hist [facility] HISTORIC [...]
--- OUTSIDE RECORDS SUMMARY | 2020-01-04 17:43 | XMS REPORT | Encounter Summary ---
Author Author [facility] Organization [facility] Address Unknown Phone Unavailable Care Team Providers Care High School Assistant Principal Name Role Phone Sydni Russell PCP Encounter Details Care Team Description Date Type Department Eriberto Carrasquillo MD [address] [place] [address] [phone] 09/17/2011 [facility] [...] and contact information: Iris Del Cid/ Dr. Proctor([facility]), [phone], [id number] Patient Status: Diagnosis 1: Atrial fibrillation [facility] Diagnosis 2: Target INR Range: 2.0-3.0 Next Lab due: 20111001 Pending Procedure: NA Patient Instructions(comments): Cont 3.5mg daily. Recheck 2 weeks. KD--- Sydni v/u adina Comments (General Comments) : CALL Sydni with results. [phone]. 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 Barney office [phone]/ fax [phone] 08-31-11 He is having trouble with the home meter. He will be retrained over the phone. jm Patient Notified: Yes (Stacy Jaquez) Result reviewed by: Peri Shelton Supervising provider name: Eriberto Carrasquillo Specimen Performing Organization Address City/State/Zipcode Ph one Number NUCMED documented in this encounter Visit Diagnoses Not on filedocumented in this encounter
--- OUTSIDE RECORDS SUMMARY | 2020-01-04 17:43 | XMS REPORT | Encounter Summary ---
Author Author [facility] Organization [facility] Address Unknown Phone Unavailable Care Team Providers Care Ballaster Name Role Phone Sydni Russell PCP Encounter Details Care Team Description Date Type Department Eriberto Carrasquillo MD [address] [place] [address] [phone] 12/17/2011 [facility] [...] and contact information: Iris Del Cid/ Dr. Proctor([facility]), [phone], [id number] Patient Status: Diagnosis 1: Atrial fibrillation [facility] Diagnosis 2: Target INR Range: 2.0-3.0 Next Lab due: 20111230 Pending Procedure: NA Patient Instructions(comments): Cont 3.5mg daily. Recheck 2 weeks. KD--Unable to leave message. Sent to home address. cjj (Called back, verified dose. KD) Comments (General Comments) : CALL Sydni with results. [phone]. 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 Barney office [phone]/ fax [phone] 08-31-11 He is having trouble with the home meter. He will be retrained over the phone. jm Patient Notified: Yes (Citlali Wolfe) Result reviewed by: Peri Shelton Supervising provider name: Ramin Oneil Specimen Performing Organization Address City/State/Zipcode Ph one Number NUCMED documented in this encounter Visit Diagnoses Not on filedocumented in this encounter
--- OUTSIDE RECORDS SUMMARY | 2020-01-04 17:43 | XMS REPORT | Encounter Summary ---
Author Author [facility] Organization [facility] Address Unknown Phone Unavailable Care Team Providers Care Fish Roe Technician Name Role Phone Sydni Russell PCP Encounter Details Care Team Description Date Type Department Reid Stock MD [address] [facility] [address] [place] [address] [phone] 07/01/2011 [facility] - Hist [facility] [...] Comments Vital Sign 116/74 07/01/2011 1:56 PM WASHER HAND Blood Pressure 88 07/01/2011 1:56 PM WASHER HAND Pulse - - Temperature - - Respiratory Rate - - Oxygen Saturation - - Inhaled Oxygen Concentration 71.3 kg (157 lb 3.2 oz) 07/01/2011 1:56 PM WASHER HAND normal Weight 172.7 cm (5' 8") 07/01/2011 1:56 PM WASHER HAND Height 23.9 07/01/2011 1:56 PM WASHER HAND Body Mass Index documented in this encounter Progress Notes * Reid Stock MD - 07/01/2011 2:30 PM WASHER HAND [facility] Office [address] [place] [address] July 01, 2011 Pravin Proctor MD [address] [place] [address] RE: TENISHA RUSSELL : 1935 Chart #: [id number] Visit provider: Reid Welch M.D. Visit location: [facility] Dear Dr. Proctor: I had [...] to prescription statins. He is tolerating ov oo-mjz-gdiosos red yeast rice and phytosterol esters. Plan: [...] contact me. Sincerely, Reid SILVERIOO:malcom F: 07/07/2011 ER HAND documented in this encounter Plan of Treatment Not on filedocumented as of this encounter Procedures Comments Procedure Name Priority Date/Time Associated Diag nosis PROTHROMBIN TIME/INR Routine 07/01/2011 2:03 PM WASHER HAND documented in this encounter Results * Prothrombin Time/INR (07/01/2011 2:03 PM WASHER HAND) INR 2.00 NUCMED Comment: Lab Date: 20110701 Date Coumadin/warfarin started: 20100910 Location where INR performed: Lab Lab name and contact information: Dr. Proctor([facility]), [id number], [phone] Patient Status: Diagnosis 1: Atrial fibrillation [facility] Diagnosis 2: Target INR Range: 2.0-3.0 Next Lab due: 20110729 Pending Procedure: NA Patient Instructions(comments): pt had appt with [facility] 07/01/2011. Jweaver cont 3.5mg daily and recheck in 4 wks. cjj (Called pt, voiced understanding. KD) Comments (General Comments) : CALL Sydni with results. [phone]. 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 Barney office [phone]/ fax [phone] 03-31-11 Iris is sending meter to Elissa [...]
--- OUTSIDE RECORDS SUMMARY | 2020-01-04 17:43 | XMS REPORT | Encounter Summary ---
Author Author [facility] Organization [facility] Address Unknown Phone Unavailable Care Team Providers Care Soap Worker Name Role Phone ExcelloSydni head PCP Encounter Details Care Team Description Date Type Department Reid Stock MD [address] [facility] [address] [place] [address] [phone] 11/15/2011 [facility] - Hist [facility] H[facility]I C Visit Social History Date [...]
--- OUTSIDE RECORDS SUMMARY | 2020-01-04 17:43 | XMS REPORT | Encounter Summary ---
Author Author [facility] Organization [facility] Address Unknown Phone Unavailable Care Team Providers Care Steeler Name Role Phone BaltimoreSydni head PCP Encounter Details Care Team Description Date Type Department Reid Stock MD [address] [facility] [address] [place] [address] [phone] 12/06/2011 [facility] - Hist [facility] HISTORIC CLINI [...]
--- OUTSIDE RECORDS SUMMARY | 2020-01-04 17:43 | XMS REPORT | Encounter Summary ---
Author Author [facility] Organization [facility] Address Unknown Phone Unavailable Care Team Providers Care Neurophysiologist Name Role Phone Sydni Russell PCP Encounter Details Care Team Description Date Type Department Eriberto Carrasquillo MD [address] [place] [address] [phone] 08/31/2011 [facility] [...] and contact information: Iris Del Cid/ Dr. Proctor([facility]), [phone], [phone] Patient Status: Diagnosis 1: [facility] [...] (General Comments) : CALL Sydni with results. [phone]. 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 Barney office [phone]/ fax [phone] 08-31-11 He is having trouble with the home meter. He will be retrained over the phone. jm Patient Notified: Yes (Mercedes Samuel) Result reviewed by: Supervising provider name: Eriberto Carrasquillo Specimen Performing Organization Address City/State/Zipcode Ph one Number NUCMED documented in this encounter Visit Diagnoses Not on filedocumented in this encounter
--- OUTSIDE RECORDS SUMMARY | 2020-01-04 17:43 | XMS REPORT | Encounter Summary ---
Author Author [facility] Organization [facility] Address Unknown Phone Unavailable Care Team Providers Care Outbound Sales Representative Name Role Phone Sydni Russell PCP Encounter Details Care Team Description Date Type Department [facility] Provider, MD Lars 10/22/2011 [facility] - Hist [facility] [...] and contact information: Iris Mike Meter/ Dr. Proctor([facility]), [phone], [phone] Patient Status: Diagnosis 1: Atrial fibrillation [facility] Diagnosis 2: Target INR Range: 2.0-3.0 Next Lab due: 20111025 Pending Procedure: NA Patient Instructions(comments): Spoke with Sydni, will have father check INR Tuesday. Hardik Comments (General Comments) : CALL Sydni with results. [phone]. 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 Barney office [phone]/ fax [phone] 08-31-11 He is having trouble with the home meter. He will be retrained over the phone. jose Result reviewed by: Supervising provider name: Specimen Performing Organization Address City/State/Zipcode Ph one Number NUCMED documented in this encounter Visit Diagnoses Not on filedocumented in this encounter
--- OUTSIDE RECORDS SUMMARY | 2020-01-04 17:43 | XMS REPORT | Encounter Summary ---
Author Author [facility] Organization [facility] Address Unknown Phone Unavailable Care Team Providers Care Real Estate Economist Name Role Phone Sydni Russell PCP Encounter Details Care Team Description Date Type Department Eriberto Carrasquillo MD [address] [place] [address] [phone] 10/04/2011 [facility] [...] and contact information: Iris Del Cid/ Dr. Proctor([facility]), [phone], [phone] Patient Status: Diagnosis 1: Atrial fibrillation [facility] Diagnosis 2: Target INR Range: 2.0-3.0 Next Lab due: 20111015 Pending Procedure: NA Patient Instructions(comments): Cont 3.5mg daily. Recheck 2 weeks. KD.....spoke with Sydni Comments (General Comments) : CALL Sydni with results. [phone]. 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 Barney office [phone]/ fax [phone] 08-31-11 He is having trouble with the home meter. He will be retrained over the phone. jm Patient Notified: Yes (Tonja Nice) Result reviewed by: Peri Shelton Supervising provider name: Eriberto Carrasquillo Specimen Performing Organization Address City/State/Zipcode Ph one Number NUCMED documented in this encounter Visit Diagnoses Not on filedocumented in this encounter
--- OUTSIDE RECORDS SUMMARY | 2020-01-04 17:43 | XMS REPORT | Encounter Summary ---
Author Author [facility] Organization [facility] Address Unknown Phone Unavailable Care Team Providers Care Retort Loader Name Role Phone Sydni Russell PCP Encounter Details Care Team Description Date Type Department [facility] ProviderLars MD 08/09/2011 [facility] [place] nosis PROTHROMBIN TIME/INR Routine 08/09/2011 9:19 AM SALESPERSON SHEET MUSIC documented in this encounter Results * Prothrombin Time/INR (08/09/2011 9:19 AM SALESPERSON SHEET MUSIC) INR 1.60 NUCMED Comment: Lab Date: 20110807 Date Coumadin/warfarin started: 20100910 Location where INR performed: Lab Lab name and contact information: Dr. Proctor([facility]), [id number], [phone] Patient Status: Diagnosis 1: Atrial fibrillation [facility] Diagnosis 2: Target INR Range: 2.0-3.0 Next Lab due: 20110817 Pending Procedure: NA Patient Instructions(comments): take 5mg tonight then change dose to 4mg daily and recheck in 10 days. cjj--Sydni missed couple doses and is on Cipro, took 5mg last pm then resume 4mg daily ck in 1 wk-- Sydni v/u sd Comments (General Comments) : CALL Sydni with results. [phone]. 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 Barney office [phone]/ fax [phone] 03-31-11 Iris is sending meter to Elissa [...]
--- OUTSIDE RECORDS SUMMARY | 2020-01-04 17:43 | XMS REPORT | Encounter Summary ---
Author Author [facility] Organization [facility] Address Unknown Phone Unavailable Care Team Providers Care Production Mechanic Tin Cans Name Role Phone MorrisSydni head PCP Encounter Details Care Team Description Date Type Department Veda Puga MD [address] [facility] [address] [place] [address] [phone] 06/26/2011 [facility] - Hist [facility] HISTORIC CLINI [...]
--- OUTSIDE RECORDS SUMMARY | 2020-01-04 17:43 | XMS REPORT | Encounter Summary ---
Author Author [facility] Organization [facility] Address Unknown Phone Unavailable Care Team Providers Care Consulting Sales Executive Name Role Phone Sydni Russell PCP Encounter Details Care Team Description Date Type Department [facility] Provider, MD Lars 08/31/2011 [facility] Lab Lab name and contact information: Dr. Proctor([facility]), [id number], [phone] Patient Status: Diagnosis 1: Atrial fibrillation [facility] Diagnosis 2: Target INR Range: 2.0-3.0 Next Lab due: 20110831 Pending Procedure: NA Patient Instructions(comments): hold tonight then take 2mg tomorrow then cont 4mg daily and recheck in 1 wk. latha--spoke to patients daughter and patient is on Cipro. He will finish tomorrow. She voiced understanding of instructions. latha Comments (General Comments) : CALL Sydni with results. [phone]. 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 Barney office [phone]/ fax [phone] 03-31-11 Iris is sending meter to Elissa [...]
--- OUTSIDE RECORDS SUMMARY | 2020-01-04 17:43 | XMS REPORT | Encounter Summary ---
Author Author [facility] Organization [facility] Address Unknown Phone Unavailable Care Team Providers Care Route Salesperson Name Role Phone Sydni Russell PCP Encounter Details Care Team Description Date Type Department Elie Ding MD [address] [facility] [address] [place] [address] [phone] 10/26/2011 [facility] Visit Social History [...] and contact information: Iris Mike Meter/ Dr. Proctor([facility]), [phone], [phone] Patient Status: Diagnosis 1: Atrial fibrillation [facility] Diagnosis 2: Target INR Range: 2.0-3.0 Next Lab due: 20111109 Pending Procedure: NA Patient Instructions(comments): Cont 3.5mg daily. Recheck 2 weeks--- Sydni v/u adina Comments (General Comments) : CALL Sydni with results. [phone]. 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 Barney office [phone]/ fax [phone] 08-31-11 He is having trouble with the home meter. He will be retrained over the phone. jm Patient Notified: Yes (Stacy Jaquez) Result reviewed by: Stacy Jaquez Supervising provider name: Eriberto Carrasquillo Specimen Performing Organization Address City/State/Zipcode Ph one Number NUCMED documented in this encounter Visit Diagnoses Not on filedocumented in this encounter
--- OUTSIDE RECORDS SUMMARY | 2020-01-04 17:43 | XMS REPORT | Encounter Summary ---
Author Author [facility] Organization [facility] Address Unknown Phone Unavailable Care Team Providers Care Wildlife Refuge Manager Name Role Phone PCP Unavailable Encounter Details Care Team Description Date Type Department Reid Stock MD [address] [place] [address] [place] [address] [phone] Occlusion and stenosis of carotid artery without mention of cerebral infarction 11/29/2011 [place] [address] Social History Date Tobacco Use Types Packs/Day [...]
--- OUTSIDE RECORDS SUMMARY | 2020-01-04 17:43 | XMS REPORT | Encounter Summary ---
Author Author [facility] Organization [facility] Address Unknown Phone Unavailable Care Team Providers Care Integrity Specialist Name Role Phone Sydni Russell PCP Encounter Details Care Team Description Date Type Department Chirag Urrutia MD [address] [facility] [address] [place] [address] [phone] 08/16/2011 [facility] C Visit Social History Date [...] information: Dr. Proctor([facility]), [id number], [id number] Patient Status: Diagnosis 1: Atrial fibrillation [facility] Diagnosis 2: Target INR Range: 2.0-3.0 Next Lab due: 20110824 Pending Procedure: NA Patient Instructions(comments): rcvd 3-12-12 cont 4mg daily ck in 10 days (Called dtr Sydni, voiced understanding. KD) Comments (General Comments) : CALL Sydni with results. [phone]. 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 Barney office [phone]/ fax [phone] 03-31-11 Iris is sending meter to Elissa [...]
--- OUTSIDE RECORDS SUMMARY | 2020-01-04 17:43 | XMS REPORT | Encounter Summary ---
Author Author [facility] Organization [facility] Address Unknown Phone Unavailable Care Team Providers Care Supervisor Roller Shop Name Role Phone Sydni Russell PCP Encounter Details Care Team Description Date Type Department [facility] Provider, MD Lars 12/07/2011 [facility] and contact information: Iris Mike Meter/ Dr. Proctor([facility]), [id number], [id number] Patient Status: Diagnosis 1: Atrial fibrillation [facility] Diagnosis 2: Target INR Range: 2.0-3.0 Next Lab due: 20111209 Pending Procedure: NA Patient Instructions(comments): spoke to patients daughter and she will make sure INR is done on or tuesday [facility] Comments (General Comments) : CALL Sydni with results. [phone]. 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 Barney office [phone]/ fax [phone] 08-31-11 He is having trouble with the home meter. He will be retrained over the phone. jose Result reviewed by: Supervising provider name: Specimen Performing Organization Address City/State/Zipcode Ph one Number NUCMED documented in this encounter Visit Diagnoses Not on filedocumented in this encounter
--- OUTSIDE RECORDS SUMMARY | 2020-01-04 17:43 | XMS REPORT | Encounter Summary ---
Author Author [facility] Organization [facility] Address Unknown Phone Unavailable Care Team Providers Care Cottage Master Name Role Phone Rock CreekSydni head PCP Encounter Details Care Team Description Date Type Department Veda Puga MD [address] [facility] [address] [place] [address] [phone] 11/19/2011 [facility] [...]
--- OUTSIDE RECORDS SUMMARY | 2020-01-04 17:43 | XMS REPORT | Encounter Summary ---
Author Author [facility] Organization [facility] Address Unknown Phone Unavailable Care Team Providers Care Hot Kettle Tender Name Role Phone Sydni Russell PCP Encounter Details Care Team Description Date Type Department Eriberto Carrasquillo MD [address] [place] [address] [phone] 07/26/2011 [facility]ORIC CL[facility] [...] nosis PROTHROMBIN TIME/INR Routine 07/26/2011 8:27 AM LODGING FACILITIES ATTENDANT documented in this encounter Results * Prothrombin Time/INR (07/26/2011 8:27 AM LODGING FACILITIES ATTENDANT) INR 1.90 NUCMED Comment: Lab Date: [id number] Date Coumadin/warfarin started: 20100910 Location where INR performed: Lab Lab name and contact information: Dr. Proctor([facility]), [id number], [id number] Patient Status: Diagnosis 1: Atrial fibrillation [facility] Diagnosis 2: Target INR Range: 2.0-3.0 Next Lab due: 20110806 Pending Procedure: NA Patient Instructions(comments): Take 5mg tonight then cont 3.5mg daily. Recheck 2 weeks. KD--- Sydni v/u sd Comments (General Comments) : CALL Sydni with results. [phone]. 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 Barney office [phone]/ fax [phone] 03-31-11 Iris is sending meter to Elissa [...]
--- OUTSIDE RECORDS SUMMARY | 2020-01-04 17:43 | XMS REPORT | Encounter Summary ---
Author Author [facility] Organization [facility] Address Unknown Phone Unavailable Care Team Providers Care Cone Classifier Tender Name Role Phone GolcondaSydni head PCP Encounter Details Care Team Description Date Type Department Reid Stock MD [address] [facility] [address] [place] [address] [phone] 10/21/2011 [facility] - [facility] HISTORIC [...]
--- OUTSIDE RECORDS SUMMARY | 2020-01-04 17:43 | XMS REPORT | Encounter Summary ---
Author Author [facility] Organization [facility] Address Unknown Phone Unavailable Care Team Providers Care Zoning Administrator Name Role Phone [place]Sydni head PCP Encounter Details Care Team Description Date Type Department Reid Stock MD [address] [facility] [address] [place] [address] [phone] 12/09/2011 [facility] [...]
--- OUTSIDE RECORDS SUMMARY | 2020-01-04 17:43 | XMS REPORT | Encounter Summary ---
Author Author [facility] Organization [facility] Address Unknown Phone Unavailable Care Team Providers Care Xray Tech Name Role Phone Sydni Russell PCP Encounter Details Care Team Description [place] [address] [place] [address] [phone] 09/15/2011 [facility] - Hist [facility] HISTORIC CLINI C Visit Social [...] and contact information: Iris Mike Meter/ Dr. Proctor([facility]), [id number], [id number] Patient Status: Diagnosis 1: Atrial fibrillation [facility] Diagnosis 2: Target INR Range: 2.0-3.0 Next Lab due: 20110917 Pending Procedure: NA Patient Instructions(comments): OOT will go to lab Jeb per /sd Comments (General Comments) : CALL Sydni with results. [phone]. 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 Barney office [phone]/ fax [phone] 08-31-11 He is having trouble with the home meter. He will be retrained over the phone. jm Patient Notified: Yes (Stacy Jaquez) Result reviewed by: Stacy Jaquez Supervising provider name: Specimen Performing Organization Address City/State/Zipcode Ph one Number NUCMED documented in this encounter Visit Diagnoses Not on filedocumented in this encounter
--- OUTSIDE RECORDS SUMMARY | 2020-01-04 17:43 | XMS REPORT | Encounter Summary ---
Author Author [facility] Organization [facility] Address Unknown Phone Unavailable Care Team Providers Care Rebar Worker Name Role Phone ChelanSydni head PCP Encounter Details Care Team Description Date Type Department Yo Roberts MD [address] [facility] [address] [place] [address] [phone] 06/30/2011 [facility] Visit [...]
--- OUTSIDE RECORDS SUMMARY | 2020-01-04 17:43 | XMS REPORT | Encounter Summary ---
Author Author [facility] Organization [facility] Address Unknown Phone Unavailable Care Team Providers Care Testing Director Name Role Phone Sydni Russell PCP Encounter Details Care Team Description Date Type Department Reid Stock MD [address] [facility] [address] [place] [address] [phone] 11/29/2011 [facility] [...] Stock MD - 11/29/2011 3:30 PM CDT [address] [address] November 29, 2011 Pravin Proctor MD [address] [place] [address] RE: TENISHA RUSSELL : 1935 Chart #: [id number] Visit provider: Reid Welch M.D. Visit location: [...]
--- OUTSIDE RECORDS SUMMARY | 2020-01-04 17:43 | XMS REPORT | Encounter Summary ---
Author Author [facility] Organization [facility] Address Unknown Phone Unavailable Care Team Providers Care Criminal Research Specialist Name Role Phone YvonneSydni head PCP Encounter Details Care Team Description Date Type Department Psychiatric Provider, MD Lars 11/17/2011 [facility] [...] and contact information: Iris Mike Meter/ Dr. Proctor([facility]), [phone], [id number] Patient Status: Diagnosis 1: Atrial fibrillation [facility] Diagnosis 2: Target INR Range: 2.0-3.0 Next Lab due: 20111130 Pending Procedure: NA Patient Instructions(comments): Cont 3.5mg daily. Recheck 2 weeks....spoke with Sydni durand Comments (General Comments) : CALL Sydni with results. [phone]. 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 Barney office [phone]/ fax [phone] 08-31-11 He is having trouble with the home meter. He will be retrained over the phone. jm Patient Notified: Yes (Tonja Nice) Result reviewed by: Tonja Nice Supervising provider name: Eriberto Carrasquillo Specimen Performing Organization Address City/State/Zipcode Ph one Number NUCMED documented in this encounter Visit Diagnoses Not on filedocumented in this encounter
--- OUTSIDE RECORDS SUMMARY | 2020-01-04 17:43 | XMS REPORT | Encounter Summary ---
Author Author [facility] Organization [facility] Address Unknown Phone Unavailable Care Team Providers Care Fluid Pump Operator Name Role Phone Sydni Russell PCP Encounter Details Care Team Description Date Type Department [facility] Provider, MD Lars 06/30/2011 [facility] - Hist [facility] HISTORIC [...] nosis PROTHROMBIN TIME/INR Routine 06/14/2011 8:15 AM CREW FOREMAN documented in this encounter Results * Prothrombin Time/INR (06/14/2011 8:15 AM CREW FOREMAN) INR 2.30 NUCMED Comment: Lab Date: 20110612 Date Coumadin/warfarin started: 20100910 Location where INR performed: Lab Lab name and contact information: Dr. Proctor([facility]), [id number], [id number] Patient Status: Diagnosis 1: Atrial fibrillation [facility] Diagnosis 2: Target INR Range: 2.0-3.0 Next Lab due: 20110702 Pending Procedure: NA Patient Instructions(comments): cont 3.5mg daily and recheck in 3 wks/sd--patients daughter notified and voiced understanding. cjj Comments (General Comments) : CALL Sydni with results. [phone]. 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 Barney office [phone]/ fax [phone] 03-31-11 Iris is sending meter to Elissa [...]
--- OUTSIDE RECORDS SUMMARY | 2020-01-04 17:43 | XMS REPORT | Encounter Summary ---
Author Author [facility] Organization [facility] Address Unknown Phone Unavailable Care Team Providers Care Dye Jig Operator Name Role Phone YvonneArely head PCP Encounter Details Care Team Description Date Type Department [facility] Provider, MD Lars 06/01/2011 [facility] - Hist [facility] HISTORIC CLINI [...] nosis PROTHROMBIN TIME/INR Routine 06/01/2011 8:17 AM PIPELINE MAINTENANCE SUPERVISOR documented in this encounter Results * Prothrombin Time/INR (06/01/2011 8:17 AM PIPELINE MAINTENANCE SUPERVISOR) INR 2.40 NUCMED Comment: Lab Date: 20110529 Date Coumadin/warfarin started: 20100910 Location where INR performed: Lab Lab name and contact information: Dr. Proctor([facility]), [id number], [id number] Patient Status: Diagnosis 1: Atrial fibrillation [facility] Diagnosis 2: Target INR Range: 2.0-3.0 Next Lab due: 20110614 Pending Procedure: NA Patient Instructions(comments): 06-01-2011 ---cont 3.5mg daily and recheck in 2 wks. latha. spoke w arely. r/b v/u. ds Comments (General Comments) : CALL Arely with results. [phone]. 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 Barney office [phone]/ fax [phone] 03-31-11 Iris is sending meter to Elissa [...]
--- OUTSIDE RECORDS SUMMARY | 2020-01-04 17:43 | XMS REPORT | Encounter Summary ---
Author Author [facility] Organization [facility] Address Unknown Phone Unavailable Care Team Providers Care Tile Mechanic Helper Name Role Phone [place]Sydni head PCP Encounter Details Care Team Description Date Type Department [facility] ProviderLars MD 11/29/2011 [facility] HISTORIC CLINI C Result Social History [...]
--- OUTSIDE RECORDS SUMMARY | 2020-01-04 17:44 | XMS REPORT | Encounter Summary ---
Author Author [facility] Organization [facility] Address Unknown Phone Unavailable Care Team Providers Care Beater Tender Name Role Phone Sydni Russell PCP Encounter Details Care Team Description Date Type Department [facility] Provider, MD Lars 12/08/2010 [facility] Lab Lab name and contact information: Dr. Proctor([facility]), [id number], [id number] Patient Status: Diagnosis 1: Atrial fibrillation [facility] Diagnosis 2: Target INR Range: 2.0-3.0 Next Lab due: 20101215 Pending Procedure: NA Patient Instructions(comments): take 7.5mg tonight then cont 5mg daily and retest in 1 wk ph---patients daughter Sydni notified and voiced understanding. cjj Comments (General Comments) : CALL Sydni with results. [phone]. 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 Barney office [phone]/ fax [phone] Patient Notified: Yes (Citlali Wolfe) Result reviewed by: Tonja Nice Supervising provider name: Eriberto Carrasquillo Specimen Performing Organization Address City/State/Zipcode Ph one Number NUCMED documented in this encounter Visit Diagnoses Not on filedocumented in this encounter
--- OUTSIDE RECORDS SUMMARY | 2020-01-04 17:44 | XMS REPORT | Encounter Summary ---
Author Author [facility] Organization [facility] Address Unknown Phone Unavailable Care Team Providers Care Commercial Internship Name Role Phone YvonneSydni head PCP Encounter Details Care Team Description Date Type Department [facility] Provider, MD Lars 01/04/2011 [facility] [...] name and contact information: Dr. Proctor([facility]), [phone], [phone] Patient Status: Diagnosis 1: Atrial fibrillation [facility] Diagnosis 2: Target INR Range: 2.0-3.0 Next Lab due: 20110111 Pending Procedure: NA Patient Instructions(comments): take 7.5mg tonight then cont 5mg daily and recheck in 1 wk cjj......spoke with Leda She can't check until Tuesday. Comments (General Comments) : CALL Sydni with results. [phone]. patient daughter patient is a pharm/adina Barney office [phone]/ fax [phone] 12-28-10 faxed home monitorpapers per patient request to Iris/adina Patient Notified: Yes (Tonja Penay) Result reviewed by: Citlali Wolfe Supervising provider name: Eriberto Carrasquillo Specimen Performing Organization Address City/State/Zipcode Ph one Number NUCMED documented in this encounter Visit Diagnoses Not on filedocumented in this encounter
--- OUTSIDE RECORDS SUMMARY | 2020-01-04 17:44 | XMS REPORT | Encounter Summary ---
Author Author [facility] Organization [facility] Address Unknown Phone Unavailable Care Team Providers Care Medical Care Manager Name Role Phone Arely Russell PCP Encounter Details Care Team Description Date Type Department [facility] Provider, MD Lars 05/17/2011 [facility] - Hist [facility] H[facility]ORIC CLINI C Visit Social [...] nosis PROTHROMBIN TIME/INR Routine 05/17/2011 8:50 AM MARINA PORTER documented in this encounter Results * Prothrombin Time/INR (05/17/2011 8:50 AM MARINA PORTER) INR 2.20 NUCMED Comment: Lab Date: 20110517 Date Coumadin/warfarin started: 20100910 Location where INR performed: Lab Lab name and contact information: Dr. Proctor([facility]), [id number], [id number] Patient Status: Diagnosis 1: Atrial fibrillation [facility] Diagnosis 2: Target INR Range: 2.0-3.0 Next Lab due: 20110529 Pending Procedure: NA Patient Instructions(comments): cont 3.5mg daily ck in 2 wk. spoke arely. v/u r/b. ds Comments (General Comments) : CALL Arely with results. [phone]. 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 Barney office [phone]/ fax [phone] 03-31-11 Iris is sending meter to Elissa [...]
--- OUTSIDE RECORDS SUMMARY | 2020-01-04 17:44 | XMS REPORT | Encounter Summary ---
Author Author [facility] Organization [facility] Address Unknown Phone Unavailable Care Team Providers Care Track Equipment Operator Name Role Phone Sydni Russell PCP Encounter Details Care Team Description Date [place] [address] [facility] [address] [place] [address] [phone] 01/12/2011 [facility] H[facility]ORIC [...] Lab Lab name and contact information: Dr. Proctor([facility]), [id number], [id number] Patient Status: Diagnosis 1: Atrial fibrillation [facility] Diagnosis 2: Target INR Range: 2.0-3.0 Next Lab due: 20110119 Pending Procedure: NA Patient Instructions(comments): pt has been taking 2.5mg daily and an occ. 5mg and the dentist spoke with O.......lets try 5mg tonight then 3mg daily...spoke with Sydni Comments (General Comments) : CALL Sydni with results. [phone]. 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 Barney office [phone]/ fax [phone] 12-28-10 faxed home monitorpapers per patient request to Iris test 1-4x mthly/sd Patient Notified: Yes (Tonja Nice) Result reviewed by: Stacy Jaquez Supervising provider name: Eriberto Carrasquillo Specimen Performing Organization Address City/State/Zipcode Ph one Number NUCMED documented in this encounter Visit Diagnoses Not on filedocumented in this encounter
--- OUTSIDE RECORDS SUMMARY | 2020-01-04 17:44 | XMS REPORT | Encounter Summary ---
Author Author [facility] Organization [facility] Address Unknown Phone Unavailable Care Team Providers Care Biodiesel Process Control Technician Name Role Phone Sydni Russell PCP Encounter Details Care Team Description Date Type Department [facility] Provider, MD Lars 12/28/2010 [facility] Lab name and contact information: Dr. Proctor([facility]), [id number], [id number] Patient Status: Diagnosis 1: Atrial fibrillation [place] [...] (General Comments) : CALL Sydni with results. [phone]. 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 Barney office [phone]/ fax [phone] 12-28-10 faxed home monitorpapers per patient request to Iris/adina Patient Notified: Yes (Citlali Wolfe) Result reviewed by: Citlali Wolfe Supervising provider name: Eriberto Carrasquillo Specimen Performing Organization Address City/State/Zipcode Ph one Number NUCMED documented in this encounter Visit Diagnoses Not on filedocumented in this encounter
--- OUTSIDE RECORDS SUMMARY | 2020-01-04 17:44 | XMS REPORT | Encounter Summary ---
Author Author [facility] Organization [facility] Address Unknown Phone Unavailable Care Team Providers Care Mica Plate Layer Hand Name Role Phone Sydni Russell PCP Encounter Details Care Team Description Date Type Department [facility] Provider, MD Lars 04/19/2011 [facility] - Hist [...] nosis PROTHROMBIN TIME/INR Routine 04/19/2011 8:45 AM INFECTION CONTROL PREVENTIONIST documented in this encounter Results * Prothrombin Time/INR (04/19/2011 8:45 AM INFECTION CONTROL PREVENTIONIST) INR 2.10 NUCMED Comment: Lab Date: 20110417 Date Coumadin/warfarin started: 20100910 Location where INR performed: Lab Lab name and contact information: Dr. Proctor([facility]), [id number], [id number] Patient Status: Diagnosis 1: Atrial fibrillation [facility] Diagnosis 2: Target INR Range: 2.0-3.0 Next Lab due: 20110426 Pending Procedure: NA Patient Instructions(comments): cont 3.5mg daily ck in 1 wkk...due to new meter...patients daughter will help patient and voiced understanding. cjj Comments (General Comments) : CALL Sydni with results. [phone]. 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 Barney office [phone]/ fax [phone] 03-31-11 Iris is sending meter to Elissa [...]
--- OUTSIDE RECORDS SUMMARY | 2020-01-04 17:44 | XMS REPORT | Encounter Summary ---
Author Author [facility] Organization [facility] Address Unknown Phone Unavailable Care Team Providers Care Cnc Machine Setter Name Role Phone YvonneSydni head PCP Encounter Details Care Team Description Date Type Department [facility] Provider, MD Lars 02/16/2011 [facility] [...] Lab Lab name and contact information: Dr. Proctor([facility]), [id number], [id number] Patient Status: Diagnosis 1: Atrial fibrillation [facility] Diagnosis 2: Target INR Range: 2.0-3.0 Next Lab due: 20110302 Pending Procedure: NA Patient Instructions(comments): cont 3.5mg daily ck in 2 wk......spoke with Sydni durand Comments (General Comments) : CALL Sydni with results. [phone]. 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 Barney office [phone]/ fax [phone] 12-28-10 faxed home monitorpapers per patient request to Iris, test 1-4x mthly/sd Patient Notified: Yes (Tonja Nice) Result reviewed by: Stacy Jaquez Supervising provider name: Kellie Peralta Specimen Performing Organization Address City/State/Zipcode Ph one Number NUCMED documented in this encounter Visit Diagnoses Not on filedocumented in this encounter
--- OUTSIDE RECORDS SUMMARY | 2020-01-04 17:44 | XMS REPORT | Encounter Summary ---
Author Author [facility] Organization [facility] Address Unknown Phone Unavailable Care Team Providers Care Tetryl Wringer Operator Name Role Phone Sydni Russell PCP Encounter Details Care Team Description Date Type Department [facility] Provider, MD Lars 05/03/2011 [facility] - Hist [facility] HISTORIC [...] nosis PROTHROMBIN TIME/INR Routine 05/03/2011 8:41 AM OVERLOCKER documented in this encounter Results * Prothrombin Time/INR (05/03/2011 8:41 AM OVERLOCKER) INR 2.30 NUCMED Comment: Lab Date: 20110501 Date Coumadin/warfarin started: 20100910 Location where INR performed: Lab Lab name and contact information: Dr. Proctor([facility]), [id number], [id number] Patient Status: Diagnosis 1: Atrial fibrillation [facility] Diagnosis 2: Target INR Range: 2.0-3.0 Next Lab due: 20110508 Pending Procedure: NA Patient Instructions(comments): rcvd 05-03-11 3 of 4 new meter cont 3.5mg daily ck in 1 wk---patients daughter notified and voiced understanding. cjj Comments (General Comments) : CALL Sydni with results. [phone]. 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 Barney office [phone]/ fax [phone] 03-31-11 Iris is sending meter to Elissa [...]
--- OUTSIDE RECORDS SUMMARY | 2020-01-04 17:44 | XMS REPORT | Encounter Summary ---
Author Author [facility] Organization [facility] Address Unknown Phone Unavailable Care Team Providers Care Community Coordinator For [employer] Name Role Phone Sydni Russell PCP Encounter Details Care Team Description Date Type Department Fernando Santacruz MD [address] [facility] [address] [place], [place] [id number] 03/15/2011 [facility] [...] Lab Lab name and contact information: Dr. Proctor([facility]), [id number], [id number] Patient Status: Diagnosis 1: Atrial fibrillation [facility] Diagnosis 2: Target INR Range: 2.0-3.0 Next Lab due: 20110316 Pending Procedure: NA Patient Instructions(comments): I spoke to Aftab with Iris, and they have been trying to reach him for his home meter training. I gave him Sydni's phone number to call. jm Comments (General Comments) : CALL Sydni with results. [phone]. 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 Barney office [phone]/ fax [phone] 12-28-10 faxed home monitorpapers per patient request to Iris test 1-4x mthly/sd Result reviewed by: Supervising provider name: Specimen Performing Organization Address City/State/Zipcode Ph one Number NUCMED documented in this encounter Visit Diagnoses Not on filedocumented in this encounter
--- OUTSIDE RECORDS SUMMARY | 2020-01-04 17:44 | XMS REPORT | Encounter Summary ---
Author Author [facility] Organization [facility] Address Unknown Phone Unavailable Care Team Providers Care Coal Handling Supervisor Name Role Phone Sydni Russell PCP Encounter Details Care Team Description Date Type Department [facility] Provider, MD Lars 02/10/2011 [facility] - Hist [facility] [...] name and contact information: Dr. Proctor([facility]), [id number], [id number] Patient Status: Diagnosis 1: Atrial fibrillation [facility] Diagnosis 2: Target INR Range: 2.0-3.0 Next Lab due: 20110217 Pending Procedure: NA Patient Instructions(comments): pt dtr states he has been taking 3.5mg daily ck in 1 wk......spoke with dtr ph Comments (General Comments) : CALL Sydni with results. [phone]. 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 Barney office [phone]/ fax [phone] 12-28-10 faxed home monitorpapers per patient request to [facility]ris test 1-4x mthly/sd Patient Notified: Yes (Tonja Nice) Result reviewed by: Stacy Jaquez Supervising provider name: Wander Gayle Specimen Performing Organization Address City/State/Zipcode Ph one Number NUCMED documented in this encounter Visit Diagnoses Not on filedocumented in this encounter
--- OUTSIDE RECORDS SUMMARY | 2020-01-04 17:44 | XMS REPORT | Encounter Summary ---
Author Author [facility] Organization [facility] Address Unknown Phone Unavailable Care Team Providers Care Manager Credit Name Role Phone Sydni Russell PCP Encounter Details Care Team Description Date Type Department [facility] Provider, MD Lars 03/15/2011 [facility] - Hist [facility] HISTORIC [...] Lab Lab name and contact information: Dr. Proctor([facility]), [id number], [id number] Patient Status: Diagnosis 1: Atrial fibrillation [facility] Diagnosis 2: Target INR Range: 2.0-3.0 Next Lab due: 20110316 Pending Procedure: NA Patient Instructions(comments): cont 3.5mg daily and recheck in 2 wks. cjj.....Georgette v/u Comments (General Comments) : CALL Sydni with results. [phone]. 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 Barney office [phone]/ fax [phone] 12-28-10 faxed home monitorpapers per patient request to [facility]ris test 1-4x mthly/sd Patient Notified: Yes (Mercedes Samuel) Result reviewed by: Citlali Wolfe Supervising provider name: Eriberto Carrasquillo Specimen Performing Organization Address City/State/Zipcode Ph one Number NUCMED documented in this encounter Visit Diagnoses Not on filedocumented in this encounter
--- OUTSIDE RECORDS SUMMARY | 2020-01-04 17:44 | XMS REPORT | Encounter Summary ---
Author Author [facility] Organization [facility] Address Unknown Phone Unavailable Care Team Providers Care Leasing Assistant Name Role Phone Sydni Russell PCP Encounter Details Care Team Description Date Type Department Reid Stock MD [address] [address] 12/15/2010 [facility] HISTORIC CLINI [...] Stock MD - 12/15/2010 2:15 PM CDT [place] [facility] [address] [place] [address] December 15, 2010 Pravin Proctor MD [address] [place] [address] RE: TENISHA RUSSELL : 1935 Chart #: [id number] Visit provider: Reid Welch M.D. Visit location: [place] office Dear Dr. Proctor: I had the [...] 2. Add Cardiosterol 3 per day. 3. Inglis-3 2 per day. 4. Recheck lipids in [...]
--- OUTSIDE RECORDS SUMMARY | 2020-01-04 17:44 | XMS REPORT | Encounter Summary ---
Author Author [facility] Organization [facility] Address Unknown Phone Unavailable Care Team Providers Care Waste Picker Name Role Phone YvonneSydni head PCP Encounter Details Care Team Description Date Type Department [facility] Provider, MD Lars 12/11/2010 [facility] - Hist [facility] H[facility]ORIC CLINI C Visit Social [...] Lab Lab name and contact information: Dr. Proctor([facility]), [id number], [id number] Patient Status: Diagnosis 1: Atrial fibrillation [facility] Diagnosis 2: Target INR Range: 2.0-3.0 Next Lab due: 20101218 Pending Procedure: NA Patient Instructions(comments): cont 5mg daily and recheck in 1 wk. cjj--Sydni v/u sd ( cataract sx on Mon with Dr. Gilmore office faxed protime ) faxed protime to Dr Patricia Comments (General Comments) : CALL Sydni with results. [phone]. 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 Barney office [phone]/ fax [phone] Patient Notified: Yes (Stacy Jaquez) Result reviewed by: Citlali Wolfe Supervising provider name: Meet Leigh Specimen Performing Organization Address City/State/Zipcode Ph one Number NUCMED documented in this encounter Visit Diagnoses Not on filedocumented in this encounter
--- OUTSIDE RECORDS SUMMARY | 2020-01-04 17:44 | XMS REPORT | Encounter Summary ---
Author Author [facility] Organization [facility] Address Unknown Phone Unavailable Care Team Providers Care Still Tender Name Role Phone Sydni Russell PCP Encounter Details Care Team Description Date Type Department [facility] Provider, MD Lars 05/10/2011 [facility] - Hist [facility] HISTORIC CLINI C Visit Social [...] nosis PROTHROMBIN TIME/INR Routine 05/10/2011 8:36 AM INFECTIOUS WASTE TECHNICIAN documented in this encounter Results * Prothrombin Time/INR (05/10/2011 8:36 AM INFECTIOUS WASTE TECHNICIAN) INR 1.80 NUCMED Comment: Lab Date: 20110508 Date Coumadin/warfarin started: 20100910 Location where INR performed: Lab Lab name and contact information: Dr. Proctor([facility]), [id number], [id number] Patient Status: Diagnosis 1: Atrial fibrillation [facility] Diagnosis 2: Target INR Range: 2.0-3.0 Next Lab due: 20110517 Pending Procedure: NA Patient Instructions(comments): 4 of 4 new meter...... take 5mg tonight then cont 3.5mg daily ck in 1 wk---patients daughter Sydni notified and voiced understanding. cjj Comments (General Comments) : CALL Sydni with results. [phone]. 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 Barney office [phone]/ fax [phone] 03-31-11 Iris is sending meter to Elissa [...]
--- OUTSIDE RECORDS SUMMARY | 2020-01-04 17:44 | XMS REPORT | Encounter Summary ---
Author Author [facility] Organization [facility] Address Unknown Phone Unavailable Care Team Providers Care Cytogenetics Technologist Name Role Phone Sydni Russell PCP Encounter Details Care Team Description Date Type Department [facility] Provider, MD Lars 04/26/2011 [facility] - Hist [facility] HISTORIC CLINI C [...] nosis PROTHROMBIN TIME/INR Routine 04/26/2011 8:36 AM TRANSPORT AIRCREWMAN documented in this encounter Results * Prothrombin Time/INR (04/26/2011 8:36 AM TRANSPORT AIRCREWMAN) INR 2.30 NUCMED Comment: Lab Date: 20110424 Date Coumadin/warfarin started: 20100910 Location where INR performed: Lab Lab name and contact information: Dr. Proctor([facility]), [id number], [id number] Patient Status: Diagnosis 1: Atrial fibrillation [facility] Diagnosis 2: Target INR Range: 2.0-3.0 Next Lab due: 20110503 Pending Procedure: NA Patient Instructions(comments): 2 of 4 cont 3.5mg daily ck in 1 wk--Tameara v/u sd Comments (General Comments) : CALL Sydni with results. [phone]. 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 Barney office [phone]/ fax [phone] 03-31-11 Iris is sending meter to Elissa [...]
--- OUTSIDE RECORDS SUMMARY | 2020-01-04 17:44 | XMS REPORT | Encounter Summary ---
Author Author [facility] Organization [facility] Address Unknown Phone Unavailable Care Team Providers Care Tube Bending Machine Operator Name Role Phone YvonneySdni head PCP Encounter Details Care Team Description Date Type Department [facility] Provider, MD Lars 2011 [facility] - Hist [facility] HISTORIC CLINI [...] Lab Lab name and contact information: Dr. Protcor([facility]), [id number], [id number] Patient Status: Diagnosis 1: Atrial fibrillation [facility] Diagnosis 2: Target INR Range: 2.0-3.0 Next Lab due: 20110202 Pending Procedure: NA Patient Instructions(comments): Patient's called asking about the home meter. She will call Iris to see about the patient form and if it was sent yet. Comments (General Comments) : CALL Sydni with results. [phone]. 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 Barney office [phone]/ fax [phone] 12-28-10 faxed home monitorpapers per patient request to Iris test 1-4x mthly/sd Result reviewed by: Supervising provider name: Specimen Performing Organization Address City/State/Zipcoms Ph one Number NUCMED documented in this encounter Visit Diagnoses Not on filedocumented in this encounter
--- OUTSIDE RECORDS SUMMARY | 2020-01-04 17:44 | XMS REPORT | Encounter Summary ---
Author Author [facility] Organization [facility] Address Unknown Phone Unavailable Care Team Providers Care Soils Analyst Name Role Phone Sydni Russell PCP Encounter Details Care Team Description Date Type Department [facility] Provider, MD Lars 04/07/2011 [facility] - Hist [facility] HISTORIC CLINI C Visit Social [...] name and contact information: Dr. Proctor([facility]), [id number], [id number] Patient Status: Diagnosis 1: Atrial fibrillation [facility] Diagnosis 2: Target INR Range: 2.0-3.0 Next Lab due: 20110421 Pending Procedure: NA Patient Instructions(comments): cont 3.5mg daily ck in 2 wk.--- Sydni v/u sd Comments (General Comments) : CALL Sydni with results. [phone]. 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 Barney office [phone]/ fax [phone] 03-31-11 Iris is sending meter to Elissa [...]
--- OUTSIDE RECORDS SUMMARY | 2020-01-04 17:44 | XMS REPORT | Encounter Summary ---
Author Author [facility] Organization [facility] Address Unknown Phone Unavailable Care Team Providers Care Finished Goods Inspector Name Role Phone Sydni Russell PCP Encounter Details Care Team Description Date Type Department [facility] Provider, MD Lars 03/31/2011 [facility] - Hist [facility] HISTORIC CLINI [...] Lab Lab name and contact information: Dr. Proctor([facility]), [id number], [id number] Patient Status: Diagnosis 1: Atrial fibrillation [facility] Diagnosis 2: Target INR Range: 2.0-3.0 Next Lab due: 20110330 Pending Procedure: NA Patient Instructions(comments): take 5mg today then resume 3.5mg daily ck in 1 wk. spoke w pt. v/u. rep back. ds Comments (General Comments) : CALL Sydni with results. [phone]. 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 Barney office [phone]/ fax [phone] 03-31-11 Iris is sending meter to Elissa [...]
--- OUTSIDE RECORDS SUMMARY | 2020-01-04 17:44 | XMS REPORT | Encounter Summary ---
Author Author [facility] Organization [facility] Address Unknown Phone Unavailable Care Team Providers Care Specifications Writer Name Role Phone YatesvilleSydni head PCP Encounter Details Care Team Description Date Type Department Reid Stock MD [address] [facility] [address] [place] [address] [phone] 01/04/2011 [facility] Visit [...]
--- OUTSIDE RECORDS SUMMARY | 2020-01-04 17:44 | XMS REPORT | Encounter Summary ---
Author Author [facility] Organization [facility] Address Unknown Phone Unavailable Care Team Providers Care Tar Roofer Name Role Phone PCP Unavailable Encounter Details Care Team Description Date Type Department Reid Stock MD [address] [facility] [address] [place] [address] [phone] [facility] [address] [place] [address] Social History Date Tobacco Use Types Packs/Day [...] Address City/State/Zipcode Ph one Number [facility] [address] [place], [place] [address] [place] documented in this encounter Visit Diagnoses Not on filedocumented in this encounter
--- OUTSIDE RECORDS SUMMARY | 2020-01-04 17:44 | XMS REPORT | Encounter Summary ---
Author Author [facility] Organization [facility] Address Unknown Phone Unavailable Care Team Providers Care Dev Manager Name Role Phone Sydni Russell PCP Encounter Details Care Team Description Date Type Department Reid Stock MD [address] [facility] [address] [place] [address] [phone] 12/27/2010 [facility]ORIC CL[facility] [...] Lab Lab name and contact information: Dr. Proctor([facility]), [id number], [id number] Patient Status: Diagnosis 1: Atrial fibrillation [facility] Diagnosis 2: Target INR Range: 2.0-3.0 Next Lab due: Pending Procedure: NA Patient Instructions(comments): 12/27/10-Bryan Russell, pt bit tough last Tuesday night. They held Coumadin Tuesday night. Went to oral surgeon, he suggested tea bags. Pt woke up Tuesday with blood all over the bed. Pt going to [place] [facility] and will call [phone] with INR. -kklenda Comments (General Comments) : CALL Sydni with results. [phone]. patient daughter patient is a pharm/[facility] office [phone]/ fax [phone] 12-28-10 faxed home monitorpapers per patient request to Jennifer Result reviewed by: Supervising provider name: Specimen Performing Organization Address City/State/Zipcode Ph one Number NUCMED documented in this encounter Visit Diagnoses Not on filedocumented in this encounter
--- OUTSIDE RECORDS SUMMARY | 2020-01-04 17:44 | XMS REPORT | Encounter Summary ---
Author Author [facility] Organization [facility] Address Unknown Phone Unavailable Care Team Providers Care Guitar Instructor Name Role Phone YvonneSydni head PCP Encounter Details Care Team Description Date Type Department [facility] Provider, MD Lars 02/02/2011 [facility] [...] name and contact information: Dr. Proctor([facility]), [id number], [id number] Patient Status: Diagnosis 1: Atrial fibrillation [facility] Diagnosis 2: Target INR Range: 2.0-3.0 Next Lab due: 20110209 Pending Procedure: NA Patient Instructions(comments): take 2mg tonight then cont 4mg daily and retest in 1 wk ph.....His dtr is a doctor and wants him in the lower 2"s. ph Comments (General Comments) : CALL Sydni with results. [phone]. 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 Barney office [phone]/ fax [phone] 12-28-10 faxed home monitorpapers per patient request to Iris, test 1-4x mthly/sd Patient Notified: Yes (Tonja Nice) Result reviewed by: Tonja Nice Supervising provider name: Eriberto Carrasquillo Specimen Performing Organization Address City/State/Zipcode Ph one Number NUCMED documented in this encounter Visit Diagnoses Not on filedocumented in this encounter
--- OUTSIDE RECORDS SUMMARY | 2020-01-04 17:44 | XMS REPORT | Encounter Summary ---
Author Author [facility] Organization [facility] Address Unknown Phone Unavailable Care Team Providers Care Assembler Dc Field Ring Name Role Phone Arely Russell PCP Encounter Details Care Team Description Date Type Department [facility] Provider, MD Lars 01/19/2011 [facility] - Hist [facility] HISTORIC [...] Lab Lab name and contact information: Dr. Proctor([facility]), [id number], [id number] Patient Status: Diagnosis 1: Atrial fibrillation [facility] Diagnosis 2: Target INR Range: 2.0-3.0 Next Lab due: 20110126 Pending Procedure: NA Patient Instructions(comments): take 5mg today then increase dose to 3.5mg daily ck in 1 wk--- arely v/u sd Comments (General Comments) : CALL Arely with results. [phone]. 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 Barney office [phone]/ fax [phone] 12-28-10 faxed home monitorpapers per patient request to dirk Simmons 1-4x mthly/sd Patient Notified: Yes (Stacy Jaquez) Result reviewed by: Stacy Jaquez Supervising provider name: Specimen Performing Organization Address City/State/Zipcode Ph one Number NUCMED documented in this encounter Visit Diagnoses Not on filedocumented in this encounter
--- OUTSIDE RECORDS SUMMARY | 2020-01-04 17:44 | XMS REPORT | Encounter Summary ---
Author Author [facility] Organization [facility] Address Unknown Phone Unavailable Care Team Providers Care Lockstitch Front Maker Name Role Phone Sydni Russell PCP Encounter Details Care Team Description Date Type Department [facility] Provider, MD Lars 2011 [facility] - Hist [facility] [...] information: Dr. Proctor([facility]), [id number], [id number] Patient Status: Diagnosis 1: Atrial fibrillation [facility] Diagnosis 2: Target INR Range: 2.0-3.0 Next Lab due: 20110202 Pending Procedure: NA Patient Instructions(comments): take 5mg today then increase dose to 4mg daily ck in 1 wk--Sydni v/u sd Comments (General Comments) : CALL Sydni with results. [phone]. 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 Barney office [phone]/ fax [phone] 12-28-10 faxed home monitorpapers per patient request to Iris, test 1-4x mthly/sd Patient Notified: Yes (Stacy Jaquez) Result reviewed by: Stacy Jaquez Supervising provider name: Eriberto Carrasquillo Specimen Performing Organization Address City/State/Zipcode Ph one Number NUCMED documented in this encounter Visit Diagnoses Not on filedocumented in this encounter
--- OUTSIDE RECORDS SUMMARY | 2020-01-04 17:44 | XMS REPORT | Encounter Summary ---
Author Author [facility] Organization [facility] Address Unknown Phone Unavailable Care Team Providers Care Work Manager Name Role Phone Pravin Proctor PCP Encounter Details Care Team Description Date Type Department Chirag Urrutia MD [address] [facility] [address] [place] [address] [phone] 01/19/2011 [facility]IC CL[facility] [...]
[2020-01-04] MEDS ORDERED: AMIODARONE 450 MG/250 ML D5W EXCEL IV SCH ×2 (17:45)
--- OUTSIDE RECORDS SUMMARY | 2020-01-04 17:45 | XMS REPORT | Encounter Summary ---
Author Author [facility] Organization [facility] Address Unknown Phone Unavailable Care Team Providers Care Perioperative Tech Name Role Phone Sydni Russell PCP Encounter Details Care Team Description Date Type Department Reid Stock MD [address] [facility] [address] [place] [address] [phone] 09/30/2010 [facility] - Hist [facility] HISTORIC [...] Stock MD - 09/30/2010 4:30 PM CDT [address] [address] September 30, 2010 Pravin Proctor MD [address] [place] [address] RE: TENISHA RUSSELL : 1935 Chart #: [id number] Visit provider: Reid Welch M.D. Visit location: [...]
--- OUTSIDE RECORDS SUMMARY | 2020-01-04 17:45 | XMS REPORT | Encounter Summary ---
Author Author [facility] Organization [facility] Address Unknown Phone Unavailable Care Team Providers Care Strip Cleaner Name Role Phone MontezumaSydni head PCP Encounter Details Care Team Description Date Type Department Reid Stock MD [address] [facility] [address] [place] [address] [phone] 11/09/2010 [facility] Visit [...]
--- OUTSIDE RECORDS SUMMARY | 2020-01-04 17:45 | XMS REPORT | Encounter Summary ---
Author Author [facility] Organization [facility] Address Unknown Phone Unavailable Care Team Providers Care Rock Crusher Operator Name Role Phone YvonneSydni head PCP Encounter Details Care Team Description Date Type Department [facility] Provider, MD Lars 10/08/2010 [facility] [...] Lab Lab name and contact information: Dr. Proctor([facility]), [id number], [id number] Patient Status: Diagnosis 1: Atrial fibrillation [facility] Diagnosis 2: Target INR Range: 2.0-3.0 Next Lab due: 20101021 Pending Procedure: NA Patient Instructions(comments): cont 5mg daily and recheck in 2 wkph...spoke with Sydni durand Comments (General Comments) : CALL Sydni with results. [phone]. 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 Barney office [phone]/ fax [phone] Patient Notified: Yes (Tonja Nice) Result reviewed by: Tonja Nice Supervising provider name: Eriberto Carrasquillo Specimen Performing Organization Address City/State/Zipcode Ph one Number NUCMED documented in this encounter Visit Diagnoses Not on filedocumented in this encounter
--- OUTSIDE RECORDS SUMMARY | 2020-01-04 17:45 | XMS REPORT | Encounter Summary ---
Author Author [facility] Organization [facility] Address Unknown Phone Unavailable Care Team Providers Care Budget Coordinator Name Role Phone Sydni Russell PCP Encounter Details Care Team Description Date Type Department [facility] ProviderLars MD 10/28/2010 [facility] Result Social History [...]
--- OUTSIDE RECORDS SUMMARY | 2020-01-04 17:45 | XMS REPORT | Encounter Summary ---
Author Author [facility] Organization [facility] Address Unknown Phone Unavailable Care Team Providers Care Storeroom Keeper Name Role Phone PCP Unavailable Encounter Details Care Team Description Date Type Department Joan Cornejo MD [address] [facility] [address] [place] [address] [phone] Occlusion and stenosis of carotid artery without mention of cerebral infarction 10/28/2010 [facility] - Encounter 10/30/2010 [...] Wander Cornejo MD - 08/04/2013 1:35 AM ELEMENTARY ART TEACHER REPORT Name: TENISHA RUSSELL Date of : 1935 Attending Physician: Joan CORNEJO Date of Admission: 10/28/2010 Date of Discharge: 10/30/[address] Welch, Today I had the pleasure of discharging your patient Mr. Tenisha Russell from the [facility] following his right carotid endarterectomy performed 10/29/2010 [...] not hesitate to contact our office at [phone]. A. Wander Cornejo MD Dictated By: Albina Hartman RN, ANP cc: MD Reid Ya Jr, MD ENTARY ART TEACHER documented in this encounter Medications at Time [...] Wander Cornejo MD - 08/04/2013 1:36 AM ELEMENTARY ART TEACHER REPORT Name: TENISHA RUSSELL Date of : 1935 Attending Physician: Joan CORNEJO DATE OF ADMISSION: 10/28/2010 PRIMARY CARE PHYSICIAN: Fátima Montana MD REFERRING DISPENSING AUDIOLOGIST: Reid Welch Jr, MD CHIEF COMPLAINT: Carotid stenosis. HISTORY OF PRESENT ILLNESS: Mr Russell is a 75-year-old male who was seen in consultation by Dr Cornejo on September 22, 2010, for his carotid stenosis. 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 He has been followed by [facility] for history of coronary [...] daily and this medication is managed by [facility]. Mr Russell has been [...] Russell takes Coumadin which is managed by [facility] and his last dose [...] Cranial nerves II through XII are intact. Regional Truck Driver are equal. Patient has a normal affect. [...] A. Wander Cornejo MD Dictated By: Cc: [facility] MD Reid Ya Jr, MD ENTARY ART TEACHER documented in this encounter Procedure Notes * Ольга Fox MD - 08/04/2013 1:35 AM ELEMENTARY ART TEACHER Associated Order(s): EEG ROUTINE (UP TO 40 [...] seen in the background electrographic rhythm. After mu-ism of flow, no changes were seen. The total clamp time was 21 minutes. The EEG was discontinued prior to reversal of anesthesia. INTERPRETATION: This is an uneventful preoperative baseline and intraoperative monitoring EEG during a right carotid endarterectomy. Ольга Fox MD Dictated By: cc: ENTARY ART TEACHER documented in this encounter Miscellaneous Notes * Operative Note - Wander Cornejo MD - 08/04/2013 1:33 AM ELEMENTARY ART TEACHER REPORT Name: TENISHA RUSSELL Date of : 1935 Attending Physician: Joan CORNEJO DATE OF OPERATION: 10/29/2010 PREOPERATIVE DIAGNOSIS: Severe right carotid artery stenosis. POSTOPERATIVE DIAGNOSIS: Severe right carotid artery stenosis. OPERATION PERFORMED: Right carotid endarterectomy. SURGEON: Yo Cornejo MD PIGGERY WORKER: Maira Gregorio PA-C ANESTHESIA: General. INCISION: Right [...] A. Wander Cornejo MD Dictated By: cc: ENTARY ART TEACHER documented in this encounter Plan of Treatment [...] PATIENT ABORH Routine 10/29/2010 8:05 AM CDT [place] [facility] Routine 10/29/2010 12:00 AM CDT XR [...] Ольга Fox MD - 08/04/2013 1:35 AM ELEMENTARY ART TEACHER REPORT Name: TENISHA RUSSELL Date of : [...] seen in the background electrographic rhythm. After mu-ism of flow, no changes were seen. The [...] MG/DL SUNQUEST Specimen Blood Performing Organization Address City/State/[facility] one Number SLRL [address] [place], [place] [address] SUNQUEST * Arterial Blood [...] SV SUNQUEST Specimen Arterial Performing Organization Address [facility] Ph one Number SLRL [address] [place] [phone] SUNQUEST * Lytes//HGB/CA POC (10/29/2010 1:07 PM CDT) Ionized Calcium 4.6 4.5 - 5.3 MG/DL SUNQUEST Sodium 141 134 - 144 MEQ/L SUNQUEST Potassium 4.4 3.5 - 5.2 MEQ/L SUNQUEST Hemoglobin 13.6 13.0 - 17.0 G/DL SUNQUEST Specimen Blood Performing Organization Address [facility] Ph one Number SLRL [address] [place] [phone] SUNQUEST * Retype Patient ABORH (10/29/2010 8:05 AM CDT) ABORH Type B Positive SUNQUEST Confirm Blood Yes SUNQUEST Type Specimen Blood Performing Organization Address [facility] one Number RL [address] [place] [phone] SUNQUEST * Pathology (10/29/2010 12:00 AM CDT) Specimen Narrative Performed At REPORT SUNQUEST PATIENT: TENISHA RUSSELL SEX / : M 1935 (Age: 75) 353 VISIT: [id number] SUBMITTING PHYSICIAN: Yo durham M.D. CLIENT: [facility] COLLECTED: 10/29/2010 REPORTED: 11/03/2010 SURGICAL PATHOLOGY REPORT COPATH SPECIMEN: Right carotid artery plaque FINAL PATHOLOGIC DIAGNOSIS: Right carotid artery - Calcific atheros clerotic plaque. Signed Electronically by: Isaiah Salmeron M.D. 11/03/2010 CLINICAL DATA: Right carotid stenosis GROSS DESCRIPTION: Received in formalin in a properly labe led container is a 2.3 cm in length by 1.3 cm in outside d iameter disrupted davies rubbery to firm bifurcated portion of t issue. Upon section the lumen is greater than 95% stenosed by off white to pale yellow to brown partially calcified victor manuel que. Industrial Waste Treatment Technician sections are submitted in one cassette following decalcification. DA/nmw Gross performed at [facility], [address] [place] [address]. [place]: [facility], [address] [place] [address] Performing Laboratory Location: [facility], Dept of Path ology, Dr Ej Salmeron, Pocket Machine Operator, [address] [place] [address] Technical processing at[facility] [place] [facility] Wander Pisano, Pocket Machine Operator [address] [place] [address] END OF REPORT Performing Organization Address City/State/Zipcode Ph one Number SLRL [address] [place] [address] [phone] SUNQUEST * XR Chest 2 views (PA and lateral) (10/28/2010 9:40 PM CDT) Specimen Narrative Performed At REPORT NAKIA Patient: TENISHA RUSSELL Phone #: Med Rec#: [id number] Sex: M : 1935 Judy#: [id number] Location: [facility] CV 15 Check-in#: [id number] Procedure Requested: [id number] DX CHEST 2 V IEWS Reason For Exam: PRE OP EVAL Exam Ordered: 10/28/2010 161 2 Exam Date/Time: 10/28/20102144 Check-in Date/Time: 10/28/2010 1614 Attendin Joan CORNEJO Requestin Joan CORNEJO Referrin NO, REFERRING Primary Care: [id number] FÁTIMA MONTANA MD DX CHEST 2 VIEWS [...] Signed (Authenticated, Released) Date-T eusebio: 10/29/2010 1331 Neurology Manager- DIAMOND GALLEGOS M.D., Staff Radiologist Dictated By- TITO HIGGINS M.D., Resid ent Staff Physician- DIAMOND GALLEGOS M.D., Staff Radiologist Authenticated By- DIAMOND GALLEGOS M.D., Staff Radiologist Procedure Note Interface, Rad Conversion - 08/04/2013 2:40 PM ELEMENTARY ART TEACHER REPORT Patient: TENISHA RUSSELL Phone #: Med Rec#: [id number] Sex: M : 1935 Judy#: [id number] Location: [facility] CV 15 Check-in#: [id number] Procedure Requested: [id number] DX CHEST 2 VIEWS Reason For Exam: PRE OP EVAL Exam Ordered: 10/28/2010 1612 Exam Date/Time: 10/28/20102144 Check-in Date/Time: 10/28/20101613 AttendinJoan ORELLANA Requestin Joan CORNEJO Referrin IBIS REFERRING Primary Care: [id number] FÁTIMA MONTANA MD DX CHEST 2 VIEWS [...] report. Signed (Authenticated, Released) Date-Time: 10/29/2010 1331 Neurology Manager- DIAMOND GALLEGOS M.D., Staff Radiologist Dictated By- TITO HIGGINS M.D., Resident Staff Physician- DIAMOND GALLEGOS M.D., Staff Radiologist Authenticated By- DIAMOND GALLEGOS M.D., Staff Radiologist Performing Organization Address [facility] Ph one Number MCKESSON * Urine Nitrite (10/28/2010 8:45 PM CDT) Nitrite Urine Negative Negative SUNQUEST Specimen Urine Performing Organization Address [facility] Ph one Number SLRL [address] [place] [phone] SUNQUEST * Urinalysis (10/28/2010 8:45 PM CDT) Appearance, Yellow SUNQUEST Urine Specific >=1.030 1.001 - 1.030 SUNQUEST [place], UA PH Urine 7.0 5.0 - 8.0 SUNQUEST Hemoglobin Negative Negative SUNQUEST Urine Ketones Urine Negative Negative SUNQUEST Glucose Urine Negative Negative SUNQUEST Protein Urine Negative Negative SUNQUEST Qual Leukocyte Negative Negative SUNQUEST Esterase Urobilinogen Negative Negative SUNQUEST Urine Bilirubin Urine Negative Negative SUNQUEST Specimen Urine Performing Organization Address [facility] one Number [facility]RL [address] [place] [phone] SUNQUEST * RBCs 2 Units (10/28/2010 4:11 PM CDT) 01 - PRODUCT ID Red Blood Cells SUNQUEST 01 - UNIT [id number] SUNQUEST NUMBER 01 - CROSS Compatible SUNQUEST MATCH 01 - STATUS Canceled SUNQUEST INFO 01 - PRODUCT [id number] SUNQUEST CODE 01 - BLOOD TYPE B Pos SUNQUEST 02 - PRODUCT ID Red Blood Cells SUNQUEST 02 - UNIT [id number] SUNQUEST NUMBER 02 - CROSS Compatible SUNQUEST MATCH 02 - STATUS Canceled SUNQUEST INFO 02 - PRODUCT [id number] SUNQUEST CODE 02 - BLOOD TYPE B Pos SUNQUEST Specimen Blood Performing Organization Address [facility] Ph one Number SLRL [address] [place] [phone] SUNQUEST * IR Cerebral Arteriogram (10/28/2010 11:45 AM CDT) Specimen Narrative Performed At [facility] Patient: TENISHA RUSSELL Phone #: [facility] Rec#: [id number] Sex: M : 1935 Judy#: [id number] Location: [facility] CVIC 19 Check-in#: [id number] Procedure Requested: [id number] IR CEREBRAL ARTERIOGRAM Reason For Exam: CAROTID STENOSIS Exam Ordered: 10/28/2010 112 9 Exam Date/Time: 10/28/2010 1245 Check-in Date/Time: 10/28/2010 1130 Attendin Joan CORNEJO Requestin Joan CORNEJO Referrin IBIS, REFERRING DR Primary Care: [id number] FÁTIMA MONTANA MD CEREBRAL ANGIOGRAM ( aortic arch, right common carotid, right subclavian, left subclavian, left verte bral, and left common carotid arteries ) DATE: October 28, 2010 11:30:00 AM HISTORY: 75-year-old with right and lef t internal carotid artery disease based on CT angiogram. He's here for a diagnostic cerebral angiogram prior to potential carotid endarterecto my. PHYSICIANS: Dr. Krystian Lima ([facility]) CONTRAST: 120 mL Omnipaque 300 FLUORO TIME: Six minutes PROCEDURE: Informed consent was obtaine d from the patient by Dr. Lima prior to transport to the [facility] neuroangiography suite . Risks discussed [...] he needle was exchanged for a 4 indian dilator over the microwire. Then the inner dilator and microwire were removed. A J wire was inserted and a 4 St Helenian sheath advanced over a J-wire. The sheath was connected to a regulated, pressurized infusion of heparinized saline. A 4 St Helenian pigtail catheter was advance d over the wire and positioned in the ascending aorta, and a mechanical i njection of Omnipaque contrast was performed for imaging of the arch a nd brachiocephalic vessels in the WOLOF and KUMAR projections. The pigtail ca theter [...] exchanged over a J-wire for a 4 St Helenian Hernandez 2 cathete r. The Hernandez 2 [...] anterior communicating sage ry is opacified from [id number]. Right subclavian artery injections: The re is [...] 1. A near occlusion of the right international freight forwarder al carotid artery at its origin due [...] Signed (Authenticated, Released) Date-T eusebio: 10/30/2010 1615 Neurology Manager- KRYSTIAN LIMA M.D., Staff Radiologist Dictated By- KRYSTIAN LIMA M.D., Staff Radiologist Staff Physician- KRYSTIAN Arreaga, Staff Radiologist Authenticated By- KRYSTIAN LIMA M.D., Staff Radiologist Procedure Note Interface, Rad Conversion - 08/04/2013 2:38 PM ELEMENTARY ART TEACHER REPORT Patient: TENISHA RUSSELL Phone #: [facility] Rec#: [id number] Sex: M : 1935 Judy#: [id number] Location: [facility] 19 Check-in#: [id number] Procedure Requested: [id number] IR CEREBRAL ARTERIOGRAM Reason For Exam: CAROTID STENOSIS Exam Ordered: 10/28/2010 1129 Exam Date/Time: 10/28/2010 1245 Check-in Date/Time: 10/28/2010 1130 AttendinJoan ORELLANA Requestin Joan CORNEJO Referrin IBIS REFERRING Primary Care: [id number] FÁTIMA MONTANA MD CEREBRAL ANGIOGRAM ( aortic arch, right common carotid, right subclavian, left subclavian, left vertebral, and left common carotid arteries ) DATE: October 28, 2010 11:30:00 AM HISTORY: 75-year-old with right and left internal carotid artery disease based on CT angiogram. He's here for a diagnostic cerebral angiogram prior to potential carotid endarterectomy. PHYSICIANS: Dr. Krystian Liam (attending) CONTRAST: 120 mL Omnipaque 300 FLUORO [...] The needle was exchanged for a 4 indian dilator over the microwire. Then the inner dilator and microwire were removed. A J wire was inserted and a 4 St Helenian sheath advanced over a J-wire. The sheath was connected to a regulated, pressurized infusion of heparinized saline. A 4 St Helenian pigtail catheter was advanced over the wire and positioned in the ascending aorta, and a mechanical injection of Omnipaque contrast was performed for imaging of the arch and brachiocephalic vessels in the WOLOF and KUMAR projections. The pigtail catheter was [...] exchanged over a J-wire for a 4 St Helenian Hernandez 2 catheter. The Hernandez 2 catheter was [...] The anterior communicating artery is opacified from [id number]. Right subclavian artery injections: There is antegrade [...] final report. Signed (Authenticated, Released) Date-Time: 10/30/2010 1612 Neurology Manager- KRYSTIAN LIMA M.D., Staff Radiologist Dictated By- KRYSTIAN LIMA M.D., Staff Radiologist Staff Physician- KRYSTIAN LIMA M.D., Staff Radiologist Authenticated By- KRYSTIAN LIMA M.D., Staff Radiologist Performing Organization Address City/[facility] Ph one Number NAKIA * Complete Blood Count (10/28/2010 9:46 AM CDT) [facility] WBC 6.30 4.00 - 11.00 TH/UL SUNQUEST [...] FL SUNQUEST Specimen Blood Performing Organization Address [facility] one Number SLRL [address] [place], [place] [address] SUNQUEST * Basic Metabolic [...] Specimen Blood Performing Organization Address [facility] one Number SLRL [address] [place] [phone] SUNQUEST * Platelet (10/28/2010 9:45 AM CDT) Platelet Count 117 (L) 140 - 400 TH/UL SUNQUEST Specimen Blood Performing Organization Address [facility] one Number SLRL [address] [place] [address] SUNQUEST * Creatinine (10/28/2010 9:45 AM [...] Specimen Blood Performing Organization Address [facility] one Number [facility]RL [address] [place] [address] SUNQUEST * Coagulation Screen (10/28/2010 9:45 AM CDT) Protime 14.5 (H) 11.7 - 14.3 SEC SUNQUEST INR 1.2 (H) 0.9 - 1.1 SUNQUEST APTT 28 22 - 34 SEC SUNQUEST Fibrinogen 344 146 - 390 MG/DL SUNQUEST Assay Specimen Blood Performing Organization Address [facility] one Number [facility]RL [address] [place] [address] SUNQUEST * Hemoglobin A1C (10/28/2010 9:45 AM CDT) HEMOGLOBIN A1C 5.5 4.0 - 6.0 % SUNQUEST Comment: Non-diabetic: 4.0 - 6.0 % Very Good Control: < 7.0 % Suboptimal Control: 7.1 - 8.0 % Poor Control: >8.0 % Specimen Blood Performing Organization Address [facility] one Number [facility]RL [address] [place] [address] SUNQUEST * Alanine Aminotransferase (10/28/2010 9:45 AM CDT) Alanine 14 14 - 63 IU/L SUNQUEST Aminotransferas e Specimen Blood Performing Organization Address [facility] one Number [facility]RL [address] [place] [address] SUNQUEST * ABORH Type (10/28/2010 9:45 AM CDT) ABORH Type B Positive SUNQUEST Specimen Blood Performing Organization Address [facility] one Number SLRL [address] [place] [address] SUNQUEST * Antibody Screen (10/28/2010 9:45 AM CDT) Antibody Screen Negative SUNQUEST Specimen Blood Performing Organization Address [facility] one Number SLRL [address] [place] [address] SUNQUEST documented in this encounter Visit Diagnoses Diagnosis Occlusion and stenosis of carotid arter y without mention of cerebral infarction documented in this encounter
--- OUTSIDE RECORDS SUMMARY | 2020-01-04 17:45 | XMS REPORT | Encounter Summary ---
Author Author [facility] Organization [facility] Address Unknown Phone Unavailable Care Team Providers Care Assembler Piano Name Role Phone Sydni Russell PCP Encounter Details Care Team Description Date Type Department Reid Stock MD [address] [place] [address] [phone] 10/02/2010 [facility] [...] Stock MD - 10/02/2010 1:25 PM CDT [place] [facility] [address] [place] [address] 10/07/2010 Pravin Proctor MD [facility] [place] [address] Re: STEVEN YVONNE : 1935 Chart#: [id number] Dear Dr. Proctor: This is a followup [...]
--- OUTSIDE RECORDS SUMMARY | 2020-01-04 17:45 | XMS REPORT | Encounter Summary ---
Author Author [facility] Organization [facility] Address Unknown Phone Unavailable Care Team Providers Care Inspector Set Up And Lay Out Name Role Phone Sydni Russell PCP Encounter Details Care Team Description Date Type Department [facility] ProviderLars MD 09/18/2010 [facility] - Hist [facility] H[facility]IC CL[facility]I C Visit Social History Date [...] Lab Lab name and contact information: Dr. Proctor([facility]), [id number], [phone] Patient Status: Diagnosis 1: Atrial fibrillation [facility] Diagnosis 2: Target INR Range: 2.0-3.0 Next Lab due: 20100918 Pending Procedure: NA Patient Instructions(comments): take7. 5mg today then resume 5mg daily recheck on tuesday. 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
--- OUTSIDE RECORDS SUMMARY | 2020-01-04 17:45 | XMS REPORT | Encounter Summary ---
Author Author [facility] Organization [facility] Address Unknown Phone Unavailable Care Team Providers Care Alteration Workroom Supervisor Name Role Phone Sydni Russell PCP Encounter Details Care Team Description Date Type Department [facility] Provider, MD Lars 10/07/2010 [facility] - Hist [facility] [...] information: Dr. Proctor([facility]), [id number], [phone] Patient Status: Diagnosis 1: Atrial fibrillation [facility] Diagnosis 2: Target INR Range: 2.0-3.0 Next Lab due: 20101006 Pending Procedure: NA Patient Instructions(comments): cont 5mg daily and recheck in 1 wk. cjj--dtr v/u sd Comments (General Comments) : CALL Sydni with results. [phone]. 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 Barney office [phone]/ fax [phone] Patient Notified: Yes (Stacy Jaquez) Result reviewed by: Citlali Wolfe Supervising provider name: Eriberto Carrasquillo Specimen Performing Organization Address City/State/Zipcode Ph one Number NUCMED documented in this encounter Visit Diagnoses Not on filedocumented in this encounter
--- OUTSIDE RECORDS SUMMARY | 2020-01-04 17:45 | XMS REPORT | Encounter Summary ---
Author Author [facility] Organization [facility] Address Unknown Phone Unavailable Care Team Providers Care Marketing Forecaster Name Role Phone Sydni Russell PCP Encounter Details Care Team Description Date Type Department [facility] Provider, MD Lars 11/09/2010 [facility] - Hist [facility] HISTORIC CLINI [...] Lab Lab name and contact information: Dr. Proctor([facility]), [id number], [phone] Patient Status: Diagnosis 1: Atrial fibrillation [facility] Diagnosis 2: Target INR Range: 2.0-3.0 Next Lab due: 20101111 Pending Procedure: NA Patient Instructions(comments): take 7.5mg tonight then cont 5mg daily and recheck in 1 wk. cjj---patient daughter Sydni notified and voiced understanding. [facility] Comments (General Comments) : CALL Sydni with results. [phone]. 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 Barney office [phone]/ fax [phone] Patient Notified: Yes (Citlali Wolfe) Result reviewed by: Citlali Wolfe Supervising provider name: Eriberto Carrasquillo Specimen Performing Organization Address City/State/Zipcode Ph one Number NUCMED documented in this encounter Visit Diagnoses Not on filedocumented in this encounter
--- OUTSIDE RECORDS SUMMARY | 2020-01-04 17:45 | XMS REPORT | Encounter Summary ---
Author Author [facility] Organization [facility] Address Unknown Phone Unavailable Care Team Providers Care Tank Farm Attendant Name Role Phone Sydni Russell PCP Encounter Details Care Team Description Date Type Department Altaf Vasques MD [address] [facility] [address] [place], [place] [id number] 12/03/2010 [facility] HISTORIC [...] Lab name and contact information: Dr. Proctor([facility]), [phone], [phone] Patient Status: Diagnosis 1: Atrial fibrillation [facility] Diagnosis 2: Target INR Range: 2.0-3.0 Next Lab due: 20101208 Pending Procedure: NA Patient Instructions(comments): hold today 2.5mg tomorrow then resume 5mg daily ck on Tue/--- dtr v/u sd Comments (General Comments) : CALL Sydni with results. [phone]. 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 Barney office [phone]/ fax [phone] Result reviewed by: Supervising provider name: Specimen Performing Organization Address City/State/Zipcode Ph one Number NUCMED documented in this encounter Visit Diagnoses Not on filedocumented in this encounter
--- OUTSIDE RECORDS SUMMARY | 2020-01-04 17:45 | XMS REPORT | Encounter Summary ---
Author Author [facility] Organization [facility] Address Unknown Phone Unavailable Care Team Providers Care Cemetery Counselor Name Role Phone YvonneSydni PCP Encounter Details Care Team Description Date Type Department [facility] Provider, MD Lars 10/23/2010 [facility] Visit Social History [...] contact information: Dr. Proctor([facility]), [phone], [phone] Patient Status: Diagnosis 1: Atrial fibrillation [facility] Diagnosis 2: Target INR Range: 2.0-3.0 Next Lab due: 20101104 Pending Procedure: NA Patient Instructions(comments): cont 5mg daily and recheck in 2 wk ph--patient will be stopping Coumadin October 24 until surgery october 29. Patient will restart normal dose and recheck in 1 wk.cjj Comments (General Comments) : CALL Sydni with results. [phone]. 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 Barney office [phone]/ fax [phone] Patient Notified: Yes (Citlali Wolfe) Result reviewed by: Tonja Nice Supervising provider name: Reid Tan Specimen Performing Organization Address City/State/Zipcode Ph one Number NUCMED documented in this encounter Visit Diagnoses Not on filedocumented in this encounter
--- OUTSIDE RECORDS SUMMARY | 2020-01-04 17:45 | XMS REPORT | Encounter Summary ---
Author Author [facility] Organization [facility] Address Unknown Phone Unavailable Care Team Providers Care Livestock Feeder Name Role Phone YvonneSydni head PCP Encounter Details Care Team Description Date Type Department [facility] Provider, MD Lars 09/23/2010 [facility] Visit Social History [...] name and contact information: Dr. Proctor([facility]), [phone], [phone] Patient Status: Diagnosis 1: Atrial fibrillation [facility] Diagnosis 2: Target INR Range: 2.0-3.0 Next Lab due: 20100923 Pending Procedure: NA Patient Instructions(comments): 09/19/10- 2.2 INR. Spoke withTammy, pt's daughter. Continue normal dose. Recheck INR on . -kkda Comments (General Comments) : CALL Sydni with results. [phone]. patient is a pharm/sd Dr. Barney office [phone]/ fax [phone] Result reviewed by: Supervising provider name: Specimen Performing Organization Address City/State/Zipcode Ph one Number NUCMED documented in this encounter Visit Diagnoses Not on filedocumented in this encounter
--- OUTSIDE RECORDS SUMMARY | 2020-01-04 17:45 | XMS REPORT | Encounter Summary ---
Author Author [facility] Organization [facility] Address Unknown Phone Unavailable Care Team Providers Care Digital Media Coordinator Name Role Phone PCP Unavailable Encounter Details Care Team Description Date Type Department Reid Stock MD [address] [facility] [address] [place] [address] [phone] Atrial fibrillation (HCC) 09/30/2010 [place] [address] Social History Date Tobacco Use Types Packs/Day [...] 3:09 PM CDT) Specimen Narrative Performed At [facility] RAD ECHOCARDIOGRAM REPORT [facility] Name: TENISHA RUSSELL Date: 09/30/2010 15:09 Chart #: [id number] : 1935 Location: [facility] OP Sono: zenobiaedouard Age: 75 Gender: M Referring: Reid Welch Room #: OP Indication Atrial fibrillation Procedure -[id number] Complete Echo 2D/Color flow/Doppler BP: 120 / [...] TENISHA RUSSELL Date: 09/30/2010 15:09 Chart #: [id number] : 1935 Location: [facility] OP Sono: marj Age: 75 Gender: M Referring: Reid Welch Room #: OP Indication Atrial fibrillation Procedure -[id number] Complete Echo 2D/Colorflow/Doppler BP: 120 / 82 [...] Performing Organization Address City/State/Zipcode Ph one Number [facility] [address] [facility] [place] [address] documented in this encounter Visit Diagnoses Diagnosis Atrial fibrillation (HCC) Atrial fibrillation documented in this encounter
--- OUTSIDE RECORDS SUMMARY | 2020-01-04 17:45 | XMS REPORT | Encounter Summary ---
Author Author [facility] Organization [facility] Address Unknown Phone Unavailable Care Team Providers Care Procedures Tech Name Role Phone Sydni Russell PCP Encounter Details Care Team Description Date Type Department Deniz Taylor MD [address] [place] [address] [phone] 09/18/2010 [facility] HISTORIC [...] name and contact information: Dr. Proctor([facility]), [phone], [phone] Patient Status: Diagnosis 1: Atrial fibrillation [facility] Diagnosis 2: Target INR Range: 2.0-3.0 Next Lab due: 20100919 Pending Procedure: NA Patient Instructions(comments): He didn't ck INR today. He will go to [facility] tomorrow. [phone]. Faxed order to [phone]. 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 Barney office [phone]/ fax [phone] Result reviewed by: Supervising provider name: Specimen Performing Organization Address City/State/Zipcode Ph one Number NUCMED documented in this encounter Visit Diagnoses Not on filedocumented in this encounter
--- OUTSIDE RECORDS SUMMARY | 2020-01-04 17:45 | XMS REPORT | Encounter Summary ---
Author Author [facility] Organization [facility] Address Unknown Phone Unavailable Care Team Providers Care Customs Verifier Name Role Phone WestfieldSydni head PCP Encounter Details Care Team Description Date Type Department [facility] Provider, MD Lars 09/30/2010 [facility] C Social History Date Tobacco [...]
--- OUTSIDE RECORDS SUMMARY | 2020-01-04 17:45 | XMS REPORT | Encounter Summary ---
Author Author [facility] Organization [facility] Address Unknown Phone Unavailable Care Team Providers Care Packing And Stamping Machine Operator Name Role Phone DufurSydni head PCP Encounter Details Care Team Description Date Type Department [facility] ProviderLars MD 09/30/2010 [facility] H[facility] C Result Social History [...]
--- OUTSIDE RECORDS SUMMARY | 2020-01-04 17:45 | XMS REPORT | Encounter Summary ---
Author Author [facility] Organization [facility] Address Unknown Phone Unavailable Care Team Providers Care Mail Truck Driver Name Role Phone Sydni Russell PCP Encounter Details Care Team Description Date Type Department Jed Christiansen MD [address] [facility] [address] [place] [address] [phone] 09/23/2010 [facility] [...] Lab Lab name and contact information: Dr. Proctor([facility]), [phone], [phone] Patient Status: Diagnosis 1: Atrial fibrillation [facility] Diagnosis 2: Target INR Range: 2.0-3.0 Next Lab due: 20100930 Pending Procedure: NA Patient Instructions(comments): hold tonight then take 2.5mg tomorrow then cont 5mg daily and retest 1 wk ph---patients daugter notified and voiced understanding. cjj Comments (General Comments) : CALL Sydni with results. [phone]. 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 Barney office [phone]/ fax [phone] Patient Notified: Yes (Citlali Wolfe) Result reviewed by: Tonja Nice Supervising provider name: Eriberto Carrasquillo Specimen Performing Organization Address City/State/Zipcode Ph one Number NUCMED documented in this encounter Visit Diagnoses Not on filedocumented in this encounter
--- OUTSIDE RECORDS SUMMARY | 2020-01-04 17:45 | XMS REPORT | Encounter Summary ---
Author Author [facility] Organization [facility] Address Unknown Phone Unavailable Care Team Providers Care Township Clerk Name Role Phone BadinSydni head PCP Encounter Details Care Team Description Date [place] [address] [facility] [address] [place] [address] [phone] 09/28/2010 [facility] Visit Social History Date [...]
--- OUTSIDE RECORDS SUMMARY | 2020-01-04 17:45 | XMS REPORT | Encounter Summary ---
Author Author [facility] Organization [facility] Address Unknown Phone Unavailable Care Team Providers Care Aircraft Captain Name Role Phone Sydni Russell PCP Encounter Details Care Team Description Date Type Department [facility] ProviderLars MD 11/17/2010 [facility] - Hist [facility] HISTORIC CLINI [...] Lab Lab name and contact information: Dr. Proctor([facility]), [phone], [phone] Patient Status: Diagnosis 1: Atrial fibrillation [facility] Diagnosis 2: Target INR Range: 2.0-3.0 Next Lab due: 20101126 Pending Procedure: NA Patient Instructions(comments): cont 5mg daily and recheck in 2 wk.--Sydni v/u sd Comments (General Comments) : CALL Sydni with results. [phone]. 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 Barney office [phone]/ fax [phone] Patient Notified: Yes (Stacy Jaquez) Result reviewed by: Tonja Nice Supervising provider name: Eriberto Carrasquillo Specimen Performing Organization Address City/State/Zipcode Ph one Number NUCMED documented in this encounter Visit Diagnoses Not on filedocumented in this encounter
--- OUTSIDE RECORDS SUMMARY | 2020-01-04 17:46 | XMS REPORT | Encounter Summary ---
Author Author [facility] Organization [facility] Address Unknown Phone Unavailable Care Team Providers Care Space Physicist Name Role Phone FreeportSydni head PCP Encounter Details Care Team Description Date Type Department Reid Stock MD [address] [facility] [address] [place] [address] [phone] 08/05/2010 [facility]IC [facility] [...]
--- OUTSIDE RECORDS SUMMARY | 2020-01-04 17:46 | XMS REPORT | Encounter Summary ---
Author Author [facility] Organization [facility] Address Unknown Phone Unavailable Care Team Providers Care Paint Spray Tender Name Role Phone PCP Unavailable Encounter Details Care Team Description Date Type Department Nikolai Govea MD [address] [facility] [address] [place] [address] [phone] 09/12/2002 [facility] al - Encounter 09/14/2002 Social History Date Tobacco Use Types Packs/Day Years Used Never Assessed Sex Assigned at Date Recorded Not on file Industry Job Start Date Occupation Not on file Not on file Not on file Travel End Travel History Travel Start No recent travel history available. documented as of this encounter H&P Notes * ProviderLars MD - 08/04/2013 6:59 PM SECURITY COMPLIANCE SPECIALIST Report w Name: TENISHA RUSSELL Attending Physician: [...] and presented to his local doctor in [place], [place]. An electrocardiogram was abnormal and he [...] as listed. Reid Welch Jr., M.D. Cc: RITY COMPLIANCE SPECIALIST * Provider, MD Lars - 08/04/2013 6:59 PM SECURITY COMPLIANCE SPECIALIST Report Name: TENISHA RUSSELL MRN/Unit #: [id number] Attending Physician: NIKOLAI GOVEA MD Date of [...] and presented to his local doctor in [place], [place]. An electrocardiogram was abnormal and he [...] laboratory work. Reid Welch Jr., M.D. cc: RITY COMPLIANCE SPECIALIST documented in this encounter Miscellaneous Notes * Operative Note - Avelino Carlson V - 08/04/2013 6:59 PM SECURITY COMPLIANCE SPECIALIST Report Name: TENISHA RUSSELL MRN/Unit #: [id number] Attending Physician: NIKOLAI GOVEA MD Date of : 1935 CV LAB NUMBER: [id number] PROCEDURE: Percutaneous coronary intervention The patient was brought to the cardiovascular laboratory where the right inguinal region was prepped and draped in the usual manner and local cutaneous anesthesia obtained with 2% Xylocaine. An 8-Sammarinese sheath was inserted percutaneously into the right [...] infusion of Integrilin. We initially selected an 8-Sammarinese JR-4 guide catheter and used it to [...] the proximal LAD. We exchanged for an 8-Sammarinese XP 3.5 guide catheter. We then advanced [...] descending. Avelino Carlson M.D. Dictated By: cc: RITY COMPLIANCE SPECIALIST documented in this encounter Plan of Treatment [...] NG/ML [facility] Specimen Blood Performing Organization Address [facility] one Number ONEALRL [address] [phone] [facility] * Hemoglobin and Hematocrit (09/14/2002 1:50 AM CDT) Only the most recent of 2 results within the time period is included. Hemoglobin 14.1 13.0 - 17.0 G/DL [facility] Hematocrit 42 40 - 50 % [facility] Specimen Blood Performing Organization Address [facility] one Number SLRL [address] [address] [facility] * Platelet (09/14/2002 1:50 AM CDT) Only the most recent of 2 results within the time period is included. Platelet Count 164 140 - 400 TH/UL [facility] Specimen Blood Performing Organization Address [facility] one Number SLRL [address] [phone] [facility] * Blood Urea Nitrogen (09/14/2002 1:50 AM CDT) Blood Urea 11 5 - 20 MG/DL [facility] Nitrogen Specimen Blood Performing Organization Address [facility] one Number SLRL [address] [address] [facility] * Electrolytes (09/14/2002 1:50 AM CDT) Sodium 139 134 - 144 MEQ/L [facility] Potassium 4.2 3.6 - 5.0 MEQ/L [facility] Chloride 106 98 - 107 MEQ/L [facility] Carbon Dioxide 29 23 - 32 MEQ/L [facility] Anion Gap 4 3 - 15 [facility] Specimen Blood Performing Organization Address [facility] one Number SLRL [address] [phone] [facility] * Creatinine (09/14/2002 1:50 AM CDT) Creatinine 1.0 0.5 - 1.5 MG/DL [facility] Specimen Blood Performing Organization Address [facility] one Number SLRL [address] [address] SUNQUEST * Activated Clotting Time (09/13/2002 8:00 PM CDT) Activated 162 (H) 99 - 130 SEC [facility] Clotting Time Specimen Blood Performing Organization [facility] one Number RL [address] [address] SUNQUEST * Troponin (09/13/2002 10:15 AM CDT) Only the most recent of 3 results within the time period is included. Troponin 1.25 f (H) 0.00 - 0.15 NG/ML [facility] Specimen Blood Narrative Performed At Report [facility] Comments and Normal Ranges for [facility] ponent TROPONIN(NG/ML) TROPONIN VALUE INTERPRETATION 0.00 - 0.15 Negative 0.16 - 1.50 Increased car diac risk >1.50 Myocardial in farction Troponin may not become elevated until 6 to 8 hours after onset of symptoms. Performing Organization [facility] one Number RL [address] [address] SUNQUEST * Basic Metabolic Panel (09/13/2002 [...] 10.5 MG/DL [facility] Specimen Blood Performing Organization [facility] one Number SLRL [address] [address] SUNQUEST * Coagulation Screen (09/13/2002 4:20 AM CDT) APTT 29 21 - 34 SEC [facility] Protime 12.7 11.5 - 13.9 SEC [facility] INR 1.0 [facility] Platelet Count 166 140 - 400 TH/UL [facility] Fibrinogen 387 146 - 390 MG/DL [facility] Assay Specimen Blood Performing Organization [facility] one Number SLRL [address] [address] [facility] * Lipid Panel (09/13/2002 4:20 AM CDT) Cholesterol 191 <200 MG/DL [facility] Triglycerides 86 <150 MG/DL [facility] HDL Cholesterol 36 (L) >41 MG/DL [facility] LDL Cholesterol 138 (H) 0 - 99 MG/DL [facility] Cholesterol/HDL 5.3 (H) <4.5 [facility] Ratio Hours 12 [facility] Postprandial Specimen Blood Performing Organization [facility] one Number SLRL [address] [address] SUNQUEST * Complete Blood Count (09/13/2002 [...] TH/UL [facility] Specimen Blood Performing Organization Address [facility] one Number SLRL [address] [address] SUNQUEST * CBC and Diff (manual [...] TH/UL [facility] Specimen Blood Performing Organization Address [facility] one Number SLRL [address] [address] [facility]QUEST * DIFFERENTIAL (09/12/2002 10:05 PM [...] TH/UL [facility] Specimen Blood Performing Organization Address [facility] one Number SLRL [address] [place], [place] [address] SUNQUEST * Comprehensive Metabolic [...] Aminotransferas e Specimen Blood Performing Organization Address [facility] one Number SLRL [address] [address] SUNQUEST * Magnesium (09/12/2002 10:05 PM CDT) Pathologist [facility] Magnesium 1.7 1.4 - 2.0 MEQ/L [facility] Specimen Blood Performing Organization Address [facility] one Number SLRL [address] [place], [place] [address] SUNQUEST * XR Chest all except portable (09/12/2002 10:02 PM CDT) Specimen Narrative Performed At Report ABIMAELSON Name: TENISHA RUSSELL Date of : [birth year] Age: 67Y Room-Bed/Location: [address] [place] [address] Check-In #: [id number] Attending Physician: NIKOLAI Mckeon MD Admitting Diagnosis: Procedure: DX CHEST ALL EXCEPT PORTAB LE; [id number] Reason for Exam: CHEST PAIN Requested By: NIKOLAI GOVEA Exam Ordered: 09/12/2002 Judy #/Jacket #: [id number] Procedure: CHEST Exam Date/Time: 09/12/2002 22:14 Reason [...] Interface, Rad Conversion - 08/06/2013 6:02 PM SECURITY COMPLIANCE SPECIALIST Report Name: TENISHA RUSSELL Date of : [birth year] Age: 67Y Room-Bed/Location: [address] [place] [address] Check-In #: [id number] Attending Physician: NIKOLAI GOVEA MD Admitting Diagnosis: Procedure: DX CHEST ALL EXCEPT PORTABLE; 96090 Reason for Exam: CHEST PAIN Requested By: NIKOLAI GOVEA Exam Ordered: 09/12/2002 Judy #/Jacket #: [id number] Procedure: CHEST Exam Date/Time: 09/12/2002 22:14 Reason [...]
--- OUTSIDE RECORDS SUMMARY | 2020-01-04 17:46 | XMS REPORT | Encounter Summary ---
Author Author [facility] Organization [facility] Address Unknown Phone Unavailable Care Team Providers Care Compensation Adjuster Name Role Phone SchrieverSydni head PCP Encounter Details Care Team Description Date Type Department Carmelina Hdoges RN ANP [address] [facility] [address] [place] [address] [phone] 06/19/2010 [facility] Visit Social History Date [...]
--- OUTSIDE RECORDS SUMMARY | 2020-01-04 17:46 | XMS REPORT | Encounter Summary ---
Author Author [facility] Organization [facility] Address Unknown Phone Unavailable Care Team Providers Care Senior Data Quality Analyst Name Role Phone CypressSydni head PCP Encounter Details Care Team Description Date Type Department Veda Puga MD [address] [facility] [address] [place] [address] [phone] 06/30/2010 [facility] HISTORIC CLINI [...]
--- OUTSIDE RECORDS SUMMARY | 2020-01-04 17:46 | XMS REPORT | Encounter Summary ---
Author Author [facility] Organization [facility] Address Unknown Phone Unavailable Care Team Providers Care Supervisor Feed House Name Role Phone AkronSydni head PCP Encounter Details Care Team Description Date Type Department Reid Stock MD [address] [facility] [address] [place] [address] [phone] 06/19/2010 [facility] Visit Social History Date [...]
--- OUTSIDE RECORDS SUMMARY | 2020-01-04 17:46 | XMS REPORT | Encounter Summary ---
Author Author [facility] Organization [facility] Address Unknown Phone Unavailable Care Team Providers Care Tumble Tailstock Turret Lathe Operator Name Role Phone Sydni Russell PCP Encounter Details Care Team Description Date Type Department [facility] Provider, MD Lars 05/07/2010 [facility] C Result Social History Date [...]
--- OUTSIDE RECORDS SUMMARY | 2020-01-04 17:46 | XMS REPORT | Encounter Summary ---
Author Author [facility] Organization [facility] Address Unknown Phone Unavailable Care Team Providers Care Strip Stamp Straightener Name Role Phone Sydni Russell PCP Encounter Details Care Team Description Date Type Department Reid Stock MD [address] [place] [address] [phone] 08/11/2010 [facility] [...] Reid Stock MD - 08/11/2010 2:47 PM [facility] [place] Office [address] [place] [address] 08/12/2010 Pravin Proctor MD [facility] [place] [address] Re: STEVEN ALEX : 1935 Chart#: [id number] Dear Dr. Proctor: This is a followup [...] to contact me. Sincerely, Reid Welch M.D. ING HEAD TENDER documented in this encounter Plan of Treatment Not on filedocumented as of this encounter Visit Diagnoses Not on filedocumented in this encounter
--- OUTSIDE RECORDS SUMMARY | 2020-01-04 17:46 | XMS REPORT | Encounter Summary ---
Author Author [facility] Organization [facility] Address Unknown Phone Unavailable Care Team Providers Care Instrument Assembler Name Role Phone Las VegasSydni head PCP Encounter Details Care Team Description Date Type Department Carmelina Hodges RN ANP [address] [facility] [address] [place] [address] [phone] 06/19/2010 [facility] [...]
--- OUTSIDE RECORDS SUMMARY | 2020-01-04 17:46 | XMS REPORT | Encounter Summary ---
Author Author [facility] Organization [facility] Address Unknown Phone Unavailable Care Team Providers Care Boat Ride Operator Name Role Phone FrankfortSydni head PCP Encounter Details Care Team Description Date Type Department Reid Stock MD [address] [facility] [address] [place] [address] [phone] 09/04/2010 [facility] Visit Social History Date [...]
--- OUTSIDE RECORDS SUMMARY | 2020-01-04 17:46 | XMS REPORT | Encounter Summary ---
Author Author [facility] Organization [facility] Address Unknown Phone Unavailable Care Team Providers Care Diesel Service Apprentice Name Role Phone Sydni Russell PCP Encounter Details Care Team Description Date Type Department [facility] ProviderLars MD 09/14/2002 [facility] Result Social History Date [...] stenosis was not dilated. Performing Organization Address City/State/[facility] Ph one Number NEXTGEN documented in this encounter Visit Diagnoses Not on filedocumented in this encounter
--- OUTSIDE RECORDS SUMMARY | 2020-01-04 17:46 | XMS REPORT | Encounter Summary ---
Author Author [facility] Organization [facility] Address Unknown Phone Unavailable Care Team Providers Care Head Holder Name Role Phone Sydni Russell PCP Encounter Details Care Team Description Date Type Department [facility] Provider, MD Lars 09/13/2002 [facility] Result Social History Date [...]
--- OUTSIDE RECORDS SUMMARY | 2020-01-04 17:46 | XMS REPORT | Encounter Summary ---
Author Author [facility] Organization [facility] Address Unknown Phone Unavailable Care Team Providers Care Striker Off Name Role Phone [place] head PCP Encounter Details Care Team Description Date Type Department [facility] ProviderLars MD 06/25/2010 [facility] Result Social [...]
--- OUTSIDE RECORDS SUMMARY | 2020-01-04 17:46 | XMS REPORT | Encounter Summary ---
Author Author [facility] Organization [facility] Address Unknown Phone Unavailable Care Team Providers Care Clothing Worker Name Role Phone [place] PCP Encounter Details Care Team Description Date Type Department [facility] Provider, MD Lars 09/13/2002 [facility] Social History Date Tobacco [...]
--- OUTSIDE RECORDS SUMMARY | 2020-01-04 17:46 | XMS REPORT | Encounter Summary ---
Author Author [facility] Organization [facility] Address Unknown Phone Unavailable Care Team Providers Care Clearing Tub Worker Name Role Phone Sydni Russell PCP Encounter Details Care Team Description Date Type Department Finesse Donovan MD [address] [facility] [address] [place], [place] [id number] 09/14/2010 [facility] HISTORIC CLINI [...] information: Dr. Proctor([facility]), [phone], [phone] Patient Status: Diagnosis 1: Atrial fibrillation PAM [...] patient is a pharm/sd Dr. Barney office [phone]/ fax [phone] Patient Notified: Yes (Stacy Jaquez) Result reviewed by: Stacy Jaquez Supervising provider name: Specimen Performing Organization Address City/State/Zipcode Ph one Number [id number] documented in this encounter Visit Diagnoses Not on filedocumented in this encounter
--- OUTSIDE RECORDS SUMMARY | 2020-01-04 17:46 | XMS REPORT | Encounter Summary ---
Author Author [facility] Organization [facility] Address Unknown Phone Unavailable Care Team Providers Care Barrel Builder Name Role Phone [place] head PCP Encounter Details Care Team Description Date Type Department Reid Stock MD [address] [facility] [address] [place] [address] [phone] 08/06/2010 [facility] [...]
--- OUTSIDE RECORDS SUMMARY | 2020-01-04 17:46 | XMS REPORT | Encounter Summary ---
Author Author [facility] Organization [facility] Address Unknown Phone Unavailable Care Team Providers Care Leather Shaver Name Role Phone PCP Unavailable Encounter Details Care Team Description Date Type Department Reid Stock MD [address] [facility] [address] [place] [address] [phone] [facility] [address] [place] [address] Social History Date Tobacco Use Types Packs/Day [...] THYROID STIMULATING Routine 08/04/2010 HORMONE 4:20 PM SOLAR BUSINESS DEVELOPER PSA FREE Routine 08/04/2010 4:20 PM SOLAR BUSINESS DEVELOPER PROTHROMBIN TIME/INR Routine 08/04/2010 4:20 PM SOLAR BUSINESS DEVELOPER POTASSIUM Routine 08/04/2010 4:20 PM SOLAR BUSINESS DEVELOPER MAGNESIUM Routine 08/04/2010 4:20 PM SOLAR BUSINESS DEVELOPER LIPID PANEL Routine 08/04/2010 4:20 PM SOLAR BUSINESS DEVELOPER HS CRP Routine 08/04/2010 4:20 PM SOLAR BUSINESS DEVELOPER HEMOGLOBIN A1C Routine 08/04/2010 4:20 PM SOLAR BUSINESS DEVELOPER GLUCOSE Routine 08/04/2010 4:20 PM SOLAR BUSINESS DEVELOPER CREATININE Routine 08/04/2010 4:20 PM SOLAR BUSINESS DEVELOPER CBC AND DIFF (MANUAL DIFF Routine 08/04/2010 IF NECESSARY) 4:20 PM SOLAR BUSINESS DEVELOPER ALANINE AMINOTRANSFERASE Routine 08/04/2010 4:20 PM SOLAR BUSINESS DEVELOPER VITAMIN D, 25-HYDROXY Routine 08/04/2010 4:20 PM SOLAR BUSINESS DEVELOPER documented in this encounter Results * Prothrombin Time/INR (08/04/2010 4:20 PM SOLAR BUSINESS DEVELOPER) Protime 13.9 11.7 - 14.3 SEC [facility] INR 1.1 0.9 - 1.1 [facility] Specimen Blood Performing Organization Address City/State/Zipcode Ph one Number [facility] [address] [place], [place] [address] [place] * CBC and Diff (manual diff if necessary) (08/04/2010 4:20 PM SOLAR BUSINESS DEVELOPER) WBC 6.00 4.00 - 11.00 TH/UL SUNQUEST [...] TH/UL [facility] Specimen Blood Performing Organization Address [facility] one Number [facility] [address] [place] [phone] [place] * Thyroid Stimulating Hormone (08/04/2010 4:20 PM SOLAR BUSINESS DEVELOPER) Thyroid 1.57 0.45 - 4.50 UIU/ML [facility] Stimulating Hormone Specimen Blood Performing Organization Address [facility] one Number [facility] [address] [place] [phone] [place] * PSA Free (08/04/2010 4:20 PM SOLAR BUSINESS DEVELOPER) PSA Total 0.9 0.0 - 4.0 NG/ML [facility] Comment: Method for [facility] is Ricki Rob. Free PSA has not been validated for Total PSA <2.5 ng/ml PSA FREE % 33.3 25 - 100 % [facility] PSA Free 0.3 NG/ML [facility] Specimen Blood Performing Organization Address [facility] one Number [facility] [address] [place] [phone] [place] * hs CRP (08/04/2010 4:20 PM SOLAR BUSINESS DEVELOPER) HS CRP 1.03 MG/L [facility] Comment: Low Cardiac Risk <1.00 mg/L Average Cardiac Risk 1.00 - 3.00 mg/L High Cardiac Risk >3.00 mg/L Specimen Blood Performing Organization Address [facility] one Number [facility] [address] [place] [phone] [place] * Creatinine (08/04/2010 4:20 PM SOLAR BUSINESS DEVELOPER) Creatinine 0.9 0.6 - 1.3 MG/DL [facility] eGFR Male AA 99 [facility] Comment: Chronic Kidney Disease less than 60 mL/min/1.73 sq.m Kidney failure less than 15 mL/min/1.73 sq.m eGFR Male 82 [facility] Non-AA Comment: Chronic Kidney Disease less than 60 mL/min/1.73 sq.m Kidney failure less than 15 mL/min/1.73 sq.m Specimen Blood Performing Organization Address [facility] one Number [facility] [address] [place] [phone] [place] * Glucose (08/04/2010 4:20 PM SOLAR BUSINESS DEVELOPER) Glucose 74 65 - 100 MG/DL [facility] Specimen Blood Performing Organization Address [facility] one Number [facility] [address] [place] [phone] [place] * Lipid Panel (08/04/2010 4:20 PM SOLAR BUSINESS DEVELOPER) Cholesterol 198 100 - 200 MG/DL [facility] Triglycerides 50 0 - 150 MG/DL [facility] HDL Cholesterol 41 40 - 110 MG/DL [facility] LDL Cholesterol 147 (H) 0 - 99 MG/DL [facility] Cholesterol/HDL 4.8 (H) 0.0 - 4.5 [facility] Ratio Non-HDL 157 (H) 0 - 130 MG/DL [facility] Cholesterol Hours 18 H [facility] Postprandial Specimen Blood Performing Organization Address [facility] one Number [facility] [address] [place] [phone] [place] * Magnesium (08/04/2010 4:20 PM SOLAR BUSINESS DEVELOPER) Magnesium 1.6 1.4 - 2.0 MEQ/L [facility] Specimen Blood Performing Organization Address [facility] one Number [facility] [address] [place] [phone] [place] * Potassium (08/04/2010 4:20 PM SOLAR BUSINESS DEVELOPER) Potassium 4.4 3.5 - 5.1 MEQ/L [facility] Specimen Blood Performing Organization Address [facility] Ph one Number [facility] [address] [place], [place] [address] [place] * Alanine Aminotransferase (08/04/2010 4:20 PM SOLAR BUSINESS DEVELOPER) Alanine 16 14 - 63 IU/L [facility] Aminotransferas e Specimen Blood Performing Organization Address [facility] one Number [facility] [address] [place], [place] [address] [place] * Hemoglobin A1C (08/04/2010 4:20 PM SOLAR BUSINESS DEVELOPER) HEMOGLOBIN A1C 5.5 4.0 - 6.0 % [facility] Comment: Non-diabetic: 4.0 - 6.0 % Very Good Control: < 7.0 % Suboptimal Control: 7.1 - 8.0 % Poor Control: >8.0 % Specimen Blood Performing Organization Address [facility] one Number [facility] [address] [place], [place] [address] [place] * Vitamin D, 25-Hydroxy (08/04/2010 4:20 PM SOLAR BUSINESS DEVELOPER) Vitamin D <5 NG/ML [facility] 25-Hydroxy D2 Vitamin D 41 NG/ML [facility] 25-Hydroxy D3 Vitamin D 41 25 - 80 NG/ML [facility] 25-Hydroxy Comment: Test performed by [facility] [address] [place] [address] Specimen Blood Performing Organization Address [facility] one Number [facility] [address] [place], [place] [address] [place] documented in this encounter Visit Diagnoses Not on filedocumented in this encounter
--- OUTSIDE RECORDS SUMMARY | 2020-01-04 17:46 | XMS REPORT | Encounter Summary ---
Author Author [facility] Organization [facility] Address Unknown Phone Unavailable Care Team Providers Care Audio Visual Equipment Rental Clerk Name Role Phone Sydni Russell PCP Encounter Details Care Team Description Date Type Department Reid Stock MD [address] [address] 08/04/2010 [facility] [...] Comments Vital Sign 140/80 08/04/2010 3:21 PM STRATEGIC SOURCING MANAGER Blood Pressure 120 08/04/2010 3:21 PM STRATEGIC SOURCING MANAGER Pulse - - Temperature - - Respiratory Rate - - Oxygen Saturation - - Inhaled Oxygen Concentration 71.2 kg (157 lb) 08/04/2010 3:21 PM STRATEGIC SOURCING MANAGER normal Weight 172.7 cm (5' 8") 08/04/2010 3:21 PM STRATEGIC SOURCING MANAGER Height 23.87 08/04/2010 3:21 PM STRATEGIC SOURCING MANAGER Body Mass Index documented in this encounter Progress Notes * Reid Stock MD - 08/04/2010 3:00 PM STRATEGIC SOURCING MANAGER [place] [facility] [address] [place] [address] August 04, 2010 Pravin Proctor MD [address] [place] [address] RE: TENISHA RUSSELL : 1935 Chart #: [id number] Visit provider: Reid Welch M.D. Visit location: [place] office Dear Dr. Proctor: I had the [...] not hesitate to contact me. Sincerely, Reid PERDOMO/clara F: 08/10/2010 TEGIC SOURCING MANAGER documented in this encounter Plan of Treatment Not on filedocumented as of this encounter Visit Diagnoses Not on filedocumented in this encounter
--- OUTSIDE RECORDS SUMMARY | 2020-01-04 17:47 | XMS REPORT | Continuity of Care Document ---
Author Organization Unknown Address Unknown Phone Unavailable Allergies Active Description Code Type Severity Reaction Onset Reported/Identified Relationship to Patient Clinical Status Yes No Known Drug Allergies [id number] Drug Allergy Unknown N/A 05/08/2017 Medications There is no data. 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 05/19/2016 TATIANA IRBY APRN Ot M47.812 SPONDYLOSIS W/O MYELOPATHY OR RADICULOPA 05/19/2016 TATIANA IRBY APRN Ot N20 .0 CALCULUS OF KIDNEY 05/19/2016 TATIANA IRBY APRN Ot S01.01XA LACERATION WITHOUT FOREIGN BODY OF SCALP 05/19/2016 TATIANA IRBY APRN Ot S06.6X0A TRAUM SUBRAC HEM W/O LOSS OF CONSCIOUSNE 05/19/2016 TATIANA IRBY APRN Ot W10.9XXA FALL (ON) (FROM) UNSPECIFIED STAIRS AND 05/19/2016 TATIANA IRBY APRN Ot Y92.[address] IN [facility] NON-INSTITUT (PRIVATE 05/19/2016 TATIANA IRBY APRN Ot Y99 .8 OTHER EXTERNAL CAUSE STATUS 05/19/2016 TATIANA IRBY APRN Ot Z23 ENCOUNTER FOR IMMUNIZATION 05/19/2016 TATIANA IRBY APRN Ot Z79.01 INTERMEDIATE (CURRENT) USE OF ANTICOAGULANT 05/20/2016 TATIANA IRBY APRN Ot F03.90 UNSPECIFIED DEMENTIA WITHOUT BEHAVIORAL 05/20/2016 TATIANA IRBY APRN Ot I48 .2 CHRONIC ATRIAL FIBRILLATION 05/20/2016 TATIANA IRBY APRN Ot I51 .7 CARDIOMEGALY 05/20/2016 TATIANA IRBY APRN Ot K40.90 UNIL INGUINAL HERNIA, W/O OBST OR GANGR, 05/20/2016 TATIANA IRBY APRN Ot 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 05/20/2016 TATIANA IRBY APRN Ot M47.812 SPONDYLOSIS W/O MYELOPATHY OR RADICULOPA 05/20/2016 TATIANA IRBY APRN Ot N20 .0 CALCULUS OF KIDNEY 05/20/2016 TATIANA IRBY APRN Ot S01.01XA LACERATION WITHOUT FOREIGN BODY OF SCALP 05/20/2016 TATIANA IRBY APRN Ot S06.6X0A TRAUM SUBRAC HEM W/O LOSS OF CONSCIOUSNE 05/20/2016 TATIANA IRBY APRN Ot W10.9XXA FALL (ON) (FROM) UNSPECIFIED STAIRS AND 05/20/2016 TATIANA IRBY APRN Ot Y92.[address] [facility] [address] IN [facility] NON-INSTITUT (PRIVATE 05/20/2016 TATIANA IRBY APRN Ot Y99 .8 OTHER EXTERNAL CAUSE STATUS 05/20/2016 TATIANA IRBY APRN Ot Z23 ENCOUNTER FOR IMMUNIZATION 05/20/2016 TATIANA IRBY APRN Ot Z79.01 INTERMEDIATE (CURRENT) USE OF ANTICOAGULANT 06/11/2016 ANALI GARDNER, KATYA Elliott Ot 401 .1 BENIGN HYPERTENSION 06/11/2016 KATYA BRIONES MD Ot 427.31 ATRIAL FIBRILLATION 06/11/2016 KATYA BRIONES MD Ot 433.10 CAROTID ARTERY OCCLUSION W O CEREBRAL IN 06/11/2016 KATYA BRIONES MD Ot V58.61 ANTICOAGULANTS,LT,CURRENT USE 06/11/2016 KATYA BRIONES MD Ot V58.69 OTH MED,LT,CURRENT USE 06/14/2016 VIOLETTE PEREZ MD Ot I62.00 NONTRAUMATIC SUBDURAL HEMORRHAGE, UNSPEC 06/14/2016 BALDOMERO PUENTE Ot K40.90 UNIL INGUINAL HERNIA, W/O OBST OR GANGR, 06/14/2016 BALDOMERO PUENTE Ot N43.3 HYDROCELE, UNSPECIFIED 06/15/2016 BALDOMERO PUENTE Ot K40.90 UNIL INGUINAL HERNIA, W/O OBST OR GANGR, 06/15/2016 BALDOMERO PUENTE Ot N43.3 HYDROCELE, UNSPECIFIED 06/19/2016 FÁTIMA MONTANA MD Ot F02.8 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 ELSWHR W 06/19/2016 FÁTIMA MONTANA MD, Ot G30.9 ALZHEIMER'S DISEASE, UNSPECIFIED 06/19/2016 FÁTIMA MONTANA MD Ot I10 ESSENTIAL (PRIMARY) HYPERTENSION 06/19/2016 FÁTIMA MONTANA MD, Ot I25.1 0 ATHSCL HEART DISEASE OF [place] CORONARY 06/19/2016 FÁTIMA MONTANA MD, Ot I25.2 OLD MYOCARDIAL INFARCTION 06/19/2016 FÁTIMA MONTANA MD Ot I48.9 1 UNSPECIFIED ATRIAL FIBRILLATION 06/19/2016 FÁTIMA MONTANA MD Ot S01.01XA LACERATION WITHOUT FOREIGN BODY OF SCALP 06/19/2016 FÁTIMA MOTNANA MD Ot S06.5X9A TRAUM SUBDR HEM W LOC OF UNSP DURATION, 06/19/2016 FÁTIMA MONTANA MD Ot S06.6X9A TRAUM SUBRAC HEM W LOC OF UNSP DURATION, 06/19/2016 FÁTIMA MONTANA MD Ot W19.XXXA UNSPECIFIED FALL, INITIAL ENCOUNTER 06/19/2016 FÁTIMA MONTANA MD Ot Y92.[address] [facility] [address] 06/19/2016 FÁTIMA MONTANA MD Ot 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 IMPLANT 07/14/2016 JEWEL ANTHONY MD, V Ot I62. 00 NONTRAUMATIC SUBDURAL HEMORRHAGE, UNSPEC 07/14/2016 JEWEL ANTHONY MD, V Ot I62. 00 NONTRAUMATIC SUBDURAL HEMORRHAGE, UNSPEC 07/27/2016 VIOLETTE PEREZ MD Ot I62.00 NONTRAUMATIC SUBDURAL HEMORRHAGE, UNSPEC 07/27/2016 BALDOMERO PUENTE Ot K40.90 UNIL INGUINAL HERNIA, W/O OBST OR GANGR, 07/27/2016 BALDOMERO PUENTE Ot N43.3 HYDROCELE, UNSPECIFIED 07/29/2016 VIOLETTE PEREZ MD Ot I62.00 NONTRAUMATIC SUBDURAL HEMORRHAGE, UNSPEC 07/29/2016 BALDOMERO PUENTE Ot K40.90 UNIL INGUINAL HERNIA, W/O OBST OR GANGR, 07/29/2016 BALDOMERO PUENTE Ot N43.3 HYDROCELE, UNSPECIFIED 08/03/2016 RAJ GARDNER, JEWEL Mackenzie Ot I62. 00 NONTRAUMATIC SUBDURAL HEMORRHAGE, UNSPEC 08/11/2016 RAJ GARDNER, JEWEL Mackeznie Ot I62. 00 NONTRAUMATIC SUBDURAL HEMORRHAGE, UNSPEC 01/03/2017 ANALI GARDNER, KATYA Elliott Ot 401 .1 BENIGN HYPERTENSION 01/03/2017 ANALI GARDNER, KATYA Elliott Ot 427.31 ATRIAL FIBRILLATION 01/03/2017 ANALI GARDNER, KATYA Elliott Ot 433.10 CAROTID ARTERY OCCLUSION W O CEREBRAL IN 01/03/2017 ANALI GARDNER, KATYA Elliott Ot V58.61 ANTICOAGULANTS,LT,CURRENT USE 01/03/2017 ANALI GARDNER, KATYA Elliott Ot V58.69 OTH MED,LT,CURRENT USE 01/03/2017 ANA GARDNER, VIOLETTE Brasher Ot I62.00 NONTRAUMATIC SUBDURAL HEMORRHAGE, UNSPEC 01/03/2017 BALDOMERO PUENTE Ot K40.90 UNIL INGUINAL HERNIA, W/O OBST OR GANGR, 01/03/2017 BALDOMERO PUENTE Ot N43.3 HYDROCELE, UNSPECIFIED 01/03/2017 RAJ GARDNER, JEWEL Mackenzie Ot I62. 00 NONTRAUMATIC SUBDURAL HEMORRHAGE, UNSPEC 04/11/2017 RUBÉN GARDNER, FÁTIMA Dumont Ot R82.9 9 OTHER ABNORMAL FINDINGS IN URINE 05/05/2017 GRAHAM GARDNER, DAWNA Brasher Ot F03. 90 UNSPECIFIED DEMENTIA WITHOUT BEHAVIORAL 05/05/2017 DAWNA STEVENSON MD Ot I10 ESSENTIAL (PRIMARY) HYPERTENSION 05/05/2017 DAWNA STEVENSON MD Ot I25. 10 ATHSCL HEART DISEASE OF [place] CORONARY 05/05/2017 DAWNA STEVENSON MD Ot I25. 2 OLD MYOCARDIAL INFARCTION 05/05/2017 DAWNA STEVENSON MD Ot I48. 91 UNSPECIFIED ATRIAL FIBRILLATION 05/05/2017 DAWNA STEVENSON MD Ot R41. 89 OTH SYMPTOMS AND SIGNS W COGNITIVE FUNCT 05/05/2017 DAWAN STEVENSON MD Ot Z86. 73 PRSNL HX OF TIA (TIA), AND CEREB INFRC W 05/05/2017 DAWNA STEVENSON MD Ot Z87. 19 PERSONAL HISTORY OF OTHER DISEASES OF TH 05/05/2017 DAWNA STEVENSON MD Ot Z87.820 PERSONAL HISTORY OF TRAUMATIC BRAIN INJU 05/05/2017 DAWNA STEVENSON MD Ot Z95. 5 PRESENCE OF CORONARY ANGIOPLASTY IMPLANT 05/09/2017 DAWNA STEVENSON MD Ot F03. 90 UNSPECIFIED DEMENTIA WITHOUT BEHAVIORAL 05/09/2017 DAWNA STEVENSON MD Ot I10 ESSENTIAL (PRIMARY) HYPERTENSION 05/09/2017 DAWNA STEVENSON MD Ot I25. 10 ATHSCL HEART DISEASE OF [place] CORONARY 05/09/2017 DAWNA STEVENSON MD Ot I25. 2 OLD MYOCARDIAL INFARCTION 05/09/2017 DAWNA STEVENSON MD Ot I48. 91 UNSPECIFIED ATRIAL FIBRILLATION 05/09/2017 DAWNA STEVENSON MD Ot R41. 89 OTH SYMPTOMS AND SIGNS W COGNITIVE FUNCT 05/09/2017 DAWNA STEVENSON MD Ot Z86. 73 PRSNL HX OF TIA (TIA), AND CEREB INFRC W 05/09/2017 DAWNA STEVENSON MD Ot Z87. 19 PERSONAL HISTORY OF OTHER DISEASES OF TH 05/09/2017 DAWNA STEVENSON MD Ot Z87.820 PERSONAL HISTORY OF TRAUMATIC BRAIN INJU 05/09/2017 DAWNA STEVENSON MD Ot Z95. 5 PRESENCE OF CORONARY ANGIOPLASTY IMPLANT 05/12/2017 DAWNA STEVENSON MD Ot F03. 90 UNSPECIFIED DEMENTIA WITHOUT BEHAVIORAL 05/12/2017 DAWNA STEVENSON MD Ot I10 ESSENTIAL (PRIMARY) HYPERTENSION 05/12/2017 DAWNA STEVENSON MD Ot I25. 10 ATHSCL HEART DISEASE OF [place] CORONARY 05/12/2017 DAWNA STEVENSON MD Ot I25. 2 OLD MYOCARDIAL INFARCTION 05/12/2017 DAWNA STEVENSON MD Ot I48. 91 UNSPECIFIED ATRIAL FIBRILLATION 05/12/2017 DAWNA STEVENSON MD Ot R41. 89 OTH SYMPTOMS AND SIGNS W COGNITIVE FUNCT 05/12/2017 DAWNA STEVENSON MD Ot Z86. 73 PRSNL HX OF TIA (TIA), AND CEREB INFRC W 05/12/2017 DAWNA STEVENSON MD Ot Z87. 19 PERSONAL HISTORY OF OTHER DISEASES OF TH 05/12/2017 GRAHAM GARDNER, DAWNA Brasher Ot Z87.820 PERSONAL HISTORY OF TRAUMATIC BRAIN INJU 05/12/2017 GRAHAM GARDNER, DAWNA Brasher Ot Z95. 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 05/13/2017 RIVERA GUAN JUN Ot G47.9 SLEEP DISORDER, UNSPECIFIED 05/13/2017 RIVERA GUAN JUN Ot H40.9 UNSPECIFIED GLAUCOMA 05/13/2017 RIVERA GUAN JUN Ot I10 ESSENTIAL (PRIMARY) HYPERTENSION 05/13/2017 RIVERA GUAN JUN Ot I25.10 ATHSCL HEART DISEASE OF [place] CORONARY 05/13/2017 RIVERA GUAN JUN Ot I25.2 OLD MYOCARDIAL INFARCTION 05/13/2017 RIVERA GUAN JUN Ot I48.91 UNSPECIFIED ATRIAL FIBRILLATION 05/13/2017 RIVERA GUAN JUN Ot K59.09 OTHER CONSTIPATION 05/13/2017 RIVERA GUAN JUN Ot N17.9 ACUTE KIDNEY FAILURE, UNSPECIFIED 05/13/2017 RIVERA GUAN JUN Ot N39.0 URINARY TRACT INFECTION, SITE NOT SPECIF 05/13/2017 RIVERA GUAN JUN Ot R13.10 DYSPHAGIA, UNSPECIFIED 05/13/2017 RIVERA GUAN JUN Ot R26.81 UNSTEADINESS ON FEET 05/13/2017 RIVERA GUAN JUN Ot 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 05/13/2017 RIVERA GUAN JUN Ot Z66 DO NOT RESUSCITATE 05/13/2017 JUN STAFFORD DO Ot Z86.73 PRSNL HX OF TIA (TIA), AND CEREB INFRC W 05/13/2017 RIVERA GUAN JUN Ot Z91.81 HISTORY OF FALLING 05/13/2017 RIVERA GUAN JUN Ot 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 IMPLANT 05/13/2017 RIVERA GUAN JUN Ot A41.01 SEPSIS DUE TO METHICILLIN SUSCEPTIBLE ST 05/13/2017 RIVERA GUAN JUN Ot D64.9 ANEMIA, UNSPECIFIED 05/13/2017 STAFFORD DO JUN Ot F03.91 UNSPECIFIED DEMENTIA WITH BEHAVIORAL DIS 05/13/2017 RIVERA DO JUN Ot 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 05/13/2017 RIVERA GUAN JUN Ot G47.9 SLEEP DISORDER, UNSPECIFIED 05/13/2017 STAFFORD DO JUN Ot H40.9 UNSPECIFIED GLAUCOMA 05/13/2017 RIVERA DO JUN Ot I10 ESSENTIAL (PRIMARY) HYPERTENSION 05/13/2017 RIVERA DO JUN Ot I25.10 ATHSCL HEART DISEASE OF [place] CORONARY 05/13/2017 RIVERA DO JUN Ot I25.2 OLD MYOCARDIAL INFARCTION 05/13/2017 RIVERA GUAN JUN Ot I48.91 UNSPECIFIED ATRIAL FIBRILLATION 05/13/2017 RIVERA GUAN JUN Ot K59.09 OTHER CONSTIPATION 05/13/2017 RIVERA DO JUN Ot N17.9 ACUTE KIDNEY FAILURE, UNSPECIFIED 05/13/2017 RIVERA GUAN JUN Ot N39.0 URINARY TRACT INFECTION, SITE NOT SPECIF 05/13/2017 RIVERA GUAN JUN Ot R13.10 DYSPHAGIA, UNSPECIFIED 05/13/2017 RIVERA GUAN JUN Ot R26.81 UNSTEADINESS ON FEET 05/13/2017 RIVERA UGAN JUN Ot 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 05/13/2017 RIVERA GUAN JUN Ot Z66 DO NOT RESUSCITATE 05/13/2017 RIVERA GUAN JUN Ot Z86.73 PRSNL HX OF TIA (TIA), AND CEREB INFRC W 05/13/2017 RIVERA GUAN JUN Ot Z91.81 HISTORY OF FALLING 05/13/2017 RIVERA GUAN JUN Ot 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 IMPLANT 05/13/2017 RIVERA GUAN JUN Ot A41.01 SEPSIS DUE TO METHICILLIN SUSCEPTIBLE ST 05/13/2017 RIVERA DO JUN Ot D64.9 ANEMIA, UNSPECIFIED 05/13/2017 RIVERA DO JUN Ot F03.91 UNSPECIFIED DEMENTIA WITH BEHAVIORAL DIS 05/13/2017 RIVERA GUAN JUN Ot 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 05/13/2017 RIVERA GUAN JUN Ot G47.9 SLEEP DISORDER, UNSPECIFIED 05/13/2017 RIVERA GUAN JUN Ot H40.9 UNSPECIFIED GLAUCOMA 05/13/2017 RIVERA GUAN JUN Ot I10 ESSENTIAL (PRIMARY) HYPERTENSION 05/13/2017 RIVERA GUAN JUN Ot I25.10 ATHSCL HEART DISEASE OF [place] CORONARY 05/13/2017 RIVERA GUAN JUN Ot I25.2 OLD MYOCARDIAL INFARCTION 05/13/2017 MARGARITO STAFFORD DOI Ot I48.91 UNSPECIFIED ATRIAL FIBRILLATION 05/13/2017 RIVERA GUAN JUN Ot K59.09 OTHER CONSTIPATION 05/13/2017 RIVERA GUAN JUN Ot N17.9 ACUTE KIDNEY FAILURE, UNSPECIFIED 05/13/2017 RIVERA GUAN JUN Ot N39.0 URINARY TRACT INFECTION, SITE NOT SPECIF 05/13/2017 RIVERA GUAN JUN Ot R13.10 DYSPHAGIA, UNSPECIFIED 05/13/2017 RIVERA GUAN JUN Ot R26.81 UNSTEADINESS ON FEET 05/13/2017 MARGARITO STAFFORD DOI Ot 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 05/13/2017 RIVERA GUAN JUN Ot Z66 DO NOT RESUSCITATE 05/13/2017 RIVERA GUAN JUN Ot Z86.73 PRSNL HX OF TIA (TIA), AND CEREB INFRC W 05/13/2017 RIVERA GUAN JUN Ot Z91.81 HISTORY OF FALLING 05/13/2017 RIVERA GUAN JUN Ot 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 IMPLANT 05/14/2017 MARGARITO STAFFORD DOI Ot A41.01 SEPSIS DUE TO METHICILLIN SUSCEPTIBLE ST 05/14/2017 MARGARITO STAFFORD DOI Ot D64.9 ANEMIA, UNSPECIFIED 05/14/2017 RIVERA GUAN JUN Ot F03.91 UNSPECIFIED DEMENTIA WITH BEHAVIORAL DIS 05/14/2017 RIVERA GUAN JUN Ot 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 05/14/2017 MARGARITO STAFFORD DOI Ot G47.9 SLEEP DISORDER, UNSPECIFIED 05/14/2017 RIVERA GUAN JUN Ot H40.9 UNSPECIFIED GLAUCOMA 05/14/2017 RIVERA GUAN JUN Ot I10 ESSENTIAL (PRIMARY) HYPERTENSION 05/14/2017 RIVERA GUAN JUN Ot I25.10 ATHSCL HEART DISEASE OF [place] CORONARY 05/14/2017 STAFFORD DO JUN Ot I25.2 OLD MYOCARDIAL INFARCTION 05/14/2017 RIVERA GUAN JUN Ot I48.91 UNSPECIFIED ATRIAL FIBRILLATION 05/14/2017 STAFFORD DO JUN Ot K59.09 OTHER CONSTIPATION 05/14/2017 STAFFORD DO JUN Ot N17.9 ACUTE KIDNEY FAILURE, UNSPECIFIED 05/14/2017 STAFFORD DO JUN Ot N39.0 URINARY TRACT INFECTION, SITE NOT SPECIF 05/14/2017 RIVERA GUAN JUN Ot R13.10 DYSPHAGIA, UNSPECIFIED 05/14/2017 STAFFORD DO JUN Ot R26.81 UNSTEADINESS ON FEET 05/14/2017 RIVERA GUAN JUN Ot 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 05/14/2017 RIVERA GUAN JUN Ot Z66 DO NOT RESUSCITATE 05/14/2017 RIVERA GUAN JUN Ot Z86.73 PRSNL HX OF TIA (TIA), AND CEREB INFRC W 05/14/2017 RIVERA GUAN JUN Ot Z91.81 HISTORY OF FALLING 05/14/2017 RIVERA GUAN JUN Ot 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 IMPLANT 05/15/2017 RIVERA GUAN JUN Ot A41.01 SEPSIS DUE TO METHICILLIN SUSCEPTIBLE ST 05/15/2017 RIVERA GUAN JUN Ot D64.9 ANEMIA, UNSPECIFIED 05/15/2017 RIVERA DO JUN Ot F03.91 UNSPECIFIED DEMENTIA WITH BEHAVIORAL DIS 05/15/2017 RIVERA GUAN JUN Ot 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 05/15/2017 RIVERA GUAN JUN Ot G47.9 SLEEP DISORDER, UNSPECIFIED 05/15/2017 RIVERA GUAN JUN Ot H40.9 UNSPECIFIED GLAUCOMA 05/15/2017 RIVERA DO JUN Ot I10 ESSENTIAL (PRIMARY) HYPERTENSION 05/15/2017 RIVERA GUAN JUN Ot I25.10 ATHSCL HEART DISEASE OF [place] CORONARY 05/15/2017 RIVERA DO JUN Ot I25.2 OLD MYOCARDIAL INFARCTION 05/15/2017 STAFFORD DO JUN Ot I48.91 UNSPECIFIED ATRIAL FIBRILLATION 05/15/2017 RIVERA GUAN JUN Ot K59.09 OTHER CONSTIPATION 05/15/2017 RIVERA DO, JUN Ot N17.9 ACUTE KIDNEY FAILURE, UNSPECIFIED 05/15/2017 STAFFORD DO, JUN Ot N39.0 URINARY TRACT INFECTION, SITE NOT SPECIF 05/15/2017 STAFFORD DO JUN Ot R13.10 DYSPHAGIA, UNSPECIFIED 05/15/2017 STAFFORD DO, JUN Ot R26.81 UNSTEADINESS ON FEET 05/15/2017 RIVERA GUAN JUN Ot 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 05/15/2017 STAFFORD DO JUN Ot Z66 DO NOT RESUSCITATE 05/15/2017 STAFFORD DO JUN Ot Z86.73 PRSNL HX OF TIA (TIA), AND CEREB INFRC W 05/15/2017 STAFFORD DO JUN Ot Z91.81 HISTORY OF FALLING 05/15/2017 RIVERA DO JUN Ot 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 IMPLANT 05/16/2017 RIVERA GUAN JUN Ot A41.01 SEPSIS DUE TO METHICILLIN SUSCEPTIBLE ST 05/16/2017 RIVERA GUAN JUN Ot D64.9 ANEMIA, UNSPECIFIED 05/16/2017 STAFFORD DO, JUN Ot F03.91 UNSPECIFIED DEMENTIA WITH BEHAVIORAL DIS 05/16/2017 STAFFORD DO JUN Ot 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 05/16/2017 RIVERA GUAN JUN Ot G47.9 SLEEP DISORDER, UNSPECIFIED 05/16/2017 STAFFORD DO JUN Ot H40.9 UNSPECIFIED GLAUCOMA 05/16/2017 STAFFORD DO JUN Ot I10 ESSENTIAL (PRIMARY) HYPERTENSION 05/16/2017 RIVERA GUAN JUN Ot I25.10 ATHSCL HEART DISEASE OF [place] CORONARY 05/16/2017 RIVERA DO JUN Ot I25.2 OLD MYOCARDIAL INFARCTION 05/16/2017 STAFFORD DO JUN Ot I48.91 UNSPECIFIED ATRIAL FIBRILLATION 05/16/2017 STAFFORD DO JUN Ot K59.09 OTHER CONSTIPATION 05/16/2017 STAFFORD DO JUN Ot N17.9 ACUTE KIDNEY FAILURE, UNSPECIFIED 05/16/2017 STAFFORD DO JUN Ot N39.0 URINARY TRACT INFECTION, SITE NOT SPECIF 05/16/2017 STAFFORD DO JUN Ot R13.10 DYSPHAGIA, UNSPECIFIED 05/16/2017 STAFFORD DO JUN Ot R26.81 UNSTEADINESS ON FEET 05/16/2017 STAFFORD DO, JUN Ot 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 05/16/2017 STAFFORD DO, JUN Ot Z66 DO NOT RESUSCITATE 05/16/2017 STAFFORD DO, JUN Ot Z86.73 PRSNL HX OF TIA (TIA), AND CEREB INFRC W 05/16/2017 STAFFORD DO JUN Ot Z91.81 HISTORY OF FALLING 05/16/2017 RIVERA GUAN JUN Ot 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 IMPLANT 05/17/2017 RIVERA DO JUN Ot A41.01 SEPSIS DUE TO METHICILLIN SUSCEPTIBLE ST 05/17/2017 RIVERA DO JUN Ot D64.9 ANEMIA, UNSPECIFIED 05/17/2017 STAFFORD DO JUN Ot F03.91 UNSPECIFIED DEMENTIA WITH BEHAVIORAL DIS 05/17/2017 RIVERA GUAN JUN Ot 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 05/17/2017 RIVERA GUAN JUN Ot G47.9 SLEEP DISORDER, UNSPECIFIED 05/17/2017 RIVERA GUAN JUN Ot H40.9 UNSPECIFIED GLAUCOMA 05/17/2017 RIVERA DO JUN Ot I10 ESSENTIAL (PRIMARY) HYPERTENSION 05/17/2017 RIVERA GUAN JUN Ot I25.10 ATHSCL HEART DISEASE OF [place] CORONARY 05/17/2017 RIVERA GUAN JUN Ot I25.2 OLD MYOCARDIAL INFARCTION 05/17/2017 RIVERA GUAN JUN Ot I48.91 UNSPECIFIED ATRIAL FIBRILLATION 05/17/2017 RIVERA GUNA JUN Ot K59.09 OTHER CONSTIPATION 05/17/2017 RIVERA DO JUN Ot N17.9 ACUTE KIDNEY FAILURE, UNSPECIFIED 05/17/2017 STAFFORD DO JUN Ot N39.0 URINARY TRACT INFECTION, SITE NOT SPECIF 05/17/2017 STAFFORD DO JUN Ot R13.10 DYSPHAGIA, UNSPECIFIED 05/17/2017 STAFFORD DO JUN Ot R26.81 UNSTEADINESS ON FEET 05/17/2017 RIVERA DO JUN Ot 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 05/17/2017 STAFFORD DO JUN Ot Z66 DO NOT RESUSCITATE 05/17/2017 RIVERA GUAN JUN Ot Z86.73 PRSNL HX OF TIA (TIA), AND CEREB INFRC W 05/17/2017 STAFFORD DO, JUN Ot Z91.81 HISTORY OF FALLING 05/17/2017 STAFFORD DO, JUN Ot 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 IMPLANT 05/18/2017 STAFFORD DO, JUN Ot A41.01 SEPSIS DUE TO METHICILLIN SUSCEPTIBLE ST 05/18/2017 STFAFORD DO, JUN Ot D64.9 ANEMIA, UNSPECIFIED 05/18/2017 STAFFORD DO, JUN Ot F03.91 UNSPECIFIED DEMENTIA WITH BEHAVIORAL DIS 05/18/2017 STAFFORD DO, JUN Ot 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 05/18/2017 STAFFORD DO, JUN Ot G47.9 SLEEP DISORDER, UNSPECIFIED 05/18/2017 STAFFORD DO, JUN Ot H40.9 UNSPECIFIED GLAUCOMA 05/18/2017 STAFFORD DO, JUN Ot I10 ESSENTIAL (PRIMARY) HYPERTENSION 05/18/2017 STAFFORD DO, JUN Ot I25.10 ATHSCL HEART DISEASE OF [place] CORONARY 05/18/2017 STAFFORD DO, JUN Ot I25.2 OLD MYOCARDIAL INFARCTION 05/18/2017 STAFFORD DO, JUN Ot I48.91 UNSPECIFIED ATRIAL FIBRILLATION 05/18/2017 STAFFORD DO, JUN Ot K59.09 OTHER CONSTIPATION 05/18/2017 STAFFORD DO, JUN Ot N17.9 ACUTE KIDNEY FAILURE, UNSPECIFIED 05/18/2017 STAFFORD DO, JUN Ot N39.0 URINARY TRACT INFECTION, SITE NOT SPECIF 05/18/2017 STAFFORD DO, JUN Ot R13.10 DYSPHAGIA, UNSPECIFIED 05/18/2017 STAFFORD DO JUN Ot R26.81 UNSTEADINESS ON FEET 05/18/2017 STAFFORD DO JUN Ot 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 05/18/2017 STAFFORD DO, JUN Ot Z66 DO NOT RESUSCITATE 05/18/2017 STAFFORD DO, JUN Ot Z86.73 PRSNL HX OF TIA (TIA), AND CEREB INFRC W 05/18/2017 STAFFORD DO, JUN Ot Z91.81 HISTORY OF FALLING 05/18/2017 STAFFORD DO JUN Ot 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 IMPLANT 05/19/2017 STAFFORD DO, JUN Ot A41.01 SEPSIS DUE TO METHICILLIN SUSCEPTIBLE ST 05/19/2017 STAFFORD DO, JUN Ot D64.9 ANEMIA, UNSPECIFIED 05/19/2017 STAFFORD DO, JUN Ot F03.91 UNSPECIFIED DEMENTIA WITH BEHAVIORAL DIS 05/19/2017 STAFFORD DO JUN Ot 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 05/19/2017 STAFFORD DO JUN Ot G47.9 SLEEP DISORDER, UNSPECIFIED 05/19/2017 STAFFORD DO JUN Ot H40.9 UNSPECIFIED GLAUCOMA 05/19/2017 STAFFORD DO JUN Ot I10 ESSENTIAL (PRIMARY) HYPERTENSION 05/19/2017 STAFFORD DO JUN Ot I25.10 ATHSCL HEART DISEASE OF [place] CORONARY 05/19/2017 STAFFORD DO JUN Ot I25.2 OLD MYOCARDIAL INFARCTION 05/19/2017 RIVERA DO JUN Ot I48.91 UNSPECIFIED ATRIAL FIBRILLATION 05/19/2017 RIVERA DO JUN Ot K59.09 OTHER CONSTIPATION 05/19/2017 STAFFORD DO JUN Ot N17.9 ACUTE KIDNEY FAILURE, UNSPECIFIED 05/19/2017 RIVERA DO JUN Ot N39.0 URINARY TRACT INFECTION, SITE NOT SPECIF 05/19/2017 RIVERA DO JUN Ot R13.10 DYSPHAGIA, UNSPECIFIED 05/19/2017 RIVERA DO JUN Ot R26.81 UNSTEADINESS ON FEET 05/19/2017 RIVERA GUAN JUN Ot 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 05/19/2017 STAFFORD DO JUN Ot Z66 DO NOT RESUSCITATE 05/19/2017 RIVERA GUAN JUN Ot Z86.73 PRSNL HX OF TIA (TIA), AND CEREB INFRC W 05/19/2017 RIVERA DO JUN Ot Z91.81 HISTORY OF FALLING 05/19/2017 STAFFORD DO JUN Ot 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 IMPLANT 05/19/2017 RIVERA DO JUN Ot A41.01 SEPSIS DUE TO METHICILLIN SUSCEPTIBLE ST 05/19/2017 STAFFORD DO, JUN Ot D64.9 ANEMIA, UNSPECIFIED 05/19/2017 STAFFORD DO, JUN Ot D69.6 THROMBOCYTOPENIA, UNSPECIFIED 05/19/2017 STAFFORD DO JUN Ot E87.70 FLUID OVERLOAD, UNSPECIFIED 05/19/2017 RIVERA GUAN JUN Ot F03.91 UNSPECIFIED DEMENTIA WITH BEHAVIORAL DIS 05/19/2017 RIVERA GUAN JUN Ot 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 05/19/2017 RIVER[place] GUAN JUN Ot G47.9 SLEEP DISORDER, UNSPECIFIED 05/19/2017 RIVER[place] GUAN JUN Ot H40.9 UNSPECIFIED GLAUCOMA 05/19/2017 RIVERA GUAN JUN Ot I10 ESSENTIAL (PRIMARY) HYPERTENSION 05/19/2017 RIVERA GUAN JUN Ot I25.10 ATHSCL HEART DISEASE OF [place] CORONARY 05/19/2017 RIVERA GUAN JUN Ot I25.2 OLD MYOCARDIAL INFARCTION 05/19/2017 RIVER[place] GUAN JUN Ot I48.91 UNSPECIFIED ATRIAL FIBRILLATION 05/19/2017 RIVER[place] GUAN JUN Ot K59.09 OTHER CONSTIPATION 05/19/2017 RIVERA GUAN JUN Ot N17.9 ACUTE KIDNEY FAILURE, UNSPECIFIED 05/19/2017 RIVER[place] GUAN JUN Ot N39.0 URINARY TRACT INFECTION, SITE NOT SPECIF 05/19/2017 RIVER[place] GUAN JUN Ot R13.10 DYSPHAGIA, UNSPECIFIED 05/19/2017 RIVERA GUAN JUN Ot R13.12 DYSPHAGIA, OROPHARYNGEAL PHASE 05/19/2017 RIVER[place] GUAN JUN Ot R26.81 UNSTEADINESS ON FEET 05/19/2017 [place]IVER[place] GUAN JUN Ot R47.01 APHASIA 05/19/2017 RIVERA GUAN JUN Ot R65.20 SEVERE SEPSIS WITHOUT SEPTIC SHOCK 05/19/2017 [place]IVER[place] GUAN JUN Ot 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 05/19/2017 [place]IVER[place] GUAN JUN Ot Z66 DO NOT RESUSCITATE 05/19/2017 RIVER[place] GUAN JUN Ot Z86.73 PRSNL HX OF TIA (TIA), AND CEREB INFRC W 05/19/2017 RIVER[place] GUAN JUN Ot Z91.81 HISTORY OF FALLING 05/19/2017 [place] GUAN JUN Ot 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 IMPLANT 03/05/2019 GRAHAM GARDNER, DAWNA Brasher Ot A41. 9 SEPSIS, UNSPECIFIED ORGANISM 03/05/2019 GRAHAM GARDNER, DAWNA Brasher Ot F03. 91 UNSPECIFIED DEMENTIA WITH BEHAVIORAL DIS 03/05/2019 GRAHAM GARDNER, DAWNA Brasher Ot I10 ESSENTIAL (PRIMARY) HYPERTENSION 03/05/2019 DAWNA STEVENSON MD Ot I25. 10 ATHSCL HEART DISEASE OF [place] CORONARY 03/05/2019 DAWNA STEVENSON MD Ot I25. 2 OLD MYOCARDIAL INFARCTION 03/05/2019 DAWNA STEVENSON MD Ot I48. 91 UNSPECIFIED ATRIAL FIBRILLATION 03/05/2019 DAWNA STEVENSON MD Ot J18. 9 PNEUMONIA, UNSPECIFIED ORGANISM 03/05/2019 DAWNA STEVENSON MD Ot K21. 9 GASTRO-ESOPHAGEAL REFLUX DISEASE WITHOUT 03/05/2019 DAWNA STEVENSON MD Ot N39. 0 URINARY TRACT INFECTION, SITE NOT SPECIF 03/05/2019 DAWNA STEVENSON MD Ot R06. 02 SHORTNESS OF BREATH 03/05/2019 DAWNA STEVENSON MD Ot Z86. 73 PRSNL HX OF TIA (TIA), AND CEREB INFRC W 03/05/2019 DAWNA STEVENSON MD Ot Z87.440 PERSONAL HISTORY OF URINARY (TRACT) INFE 03/05/2019 DAWNA STEVENSON MD Ot Z95. 5 PRESENCE OF CORONARY ANGIOPLASTY IMPLANT 03/07/2019 DAWNA STEVENSON MD Ot A41. 9 SEPSIS, UNSPECIFIED ORGANISM 03/07/2019 DAWNA STEVENSON MD Ot F03. 91 UNSPECIFIED DEMENTIA WITH BEHAVIORAL DIS 03/07/2019 DAWNA STEVENSON MD Ot I10 ESSENTIAL (PRIMARY) HYPERTENSION 03/07/2019 DAWNA STEVENSON MD Ot I25. 10 ATHSCL HEART DISEASE OF [place] CORONARY 03/07/2019 DAWNA STEVENSON MD Ot I25. 2 OLD MYOCARDIAL INFARCTION 03/07/2019 DAWNA STEVENSON MD Ot I48. 91 UNSPECIFIED ATRIAL FIBRILLATION 03/07/2019 DAWNA STEVENSON MD Ot J18. 9 PNEUMONIA, UNSPECIFIED ORGANISM 03/07/2019 DAWNA STEVENSON MD Ot K21. 9 GASTRO-ESOPHAGEAL REFLUX DISEASE WITHOUT 03/07/2019 DAWNA STEVENSON MD Ot N39. 0 URINARY TRACT INFECTION, SITE NOT SPECIF 03/07/2019 DAWNA STEVENSON MD Ot R06. 02 SHORTNESS OF BREATH 03/07/2019 DAWNA STEVENSON MD Ot Z86. 73 PRSNL HX OF TIA (TIA), AND CEREB INFRC W 03/07/2019 DAWNA STEVENSON MD Ot Z87.440 PERSONAL HISTORY OF URINARY (TRACT) INFE 03/07/2019 GRAHAM GARDNER, DAWNA Brasher Ot Z95. 5 PRESENCE OF CORONARY ANGIOPLASTY IMPLANT 08/03/2019 ANA GARDNER, VIOLETTE Brasher Ot I62.00 NONTRAUMATIC SUBDURAL HEMORRHAGE, UNSPEC 08/03/2019 RAJ GARDNER, JEWEL Mackenzie Ot I62. 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 08/04/2019 STAFFORD DO, JUN Ot F32.9 MAJOR DEPRESSIVE DISORDER, SINGLE EPISOD 08/04/2019 STAFFORD DO, JUN Ot G20 PARKINSON'S DISEASE 08/04/2019 STAFFORD DO, JUN Ot H40.9 UNSPECIFIED GLAUCOMA 08/04/2019 STAFFORD DO, JUN Ot I25.10 ATHSCL HEART DISEASE OF [place] CORONARY 08/04/2019 STAFFORD DO, JUN Ot I25.2 OLD MYOCARDIAL INFARCTION 08/04/2019 STAFFORD DO, JUN Ot I48.91 UNSPECIFIED ATRIAL FIBRILLATION 08/04/2019 STAFFORD DO, JUN Ot J18.9 PNEUMONIA, UNSPECIFIED ORGANISM 08/04/2019 STAFFORD DO, JUN Ot J98.11 ATELECTASIS 08/04/2019 STAFFORD DO, JUN Ot K21.9 GASTRO-ESOPHAGEAL REFLUX DISEASE WITHOUT 08/04/2019 STAFFORD DO, JUN Ot K59.09 OTHER CONSTIPATION 08/04/2019 STAFFORD DO, JUN Ot N17.9 ACUTE KIDNEY FAILURE, UNSPECIFIED 08/04/2019 STAFFORD DO, JUN Ot N39.0 URINARY TRACT INFECTION, SITE NOT SPECIF 08/04/2019 STAFFORD DO, JUN Ot R11.2 NAUSEA WITH VOMITING, UNSPECIFIED 08/04/2019 STAFFORD DO, JUN Ot R13.10 DYSPHAGIA, UNSPECIFIED 08/04/2019 STAFFORD DO, JUN Ot R31.9 HEMATURIA, UNSPECIFIED 08/04/2019 STAFFORD DO, JUN Ot R41.84 1 COGNITIVE COMMUNICATION DEFICIT 08/04/2019 STAFFORD DO, JUN Ot R53.1 WEAKNESS 08/04/2019 STAFFORD DO, JUN Ot R64 CACHEXIA 08/04/2019 STAFFORD DO, JUN Ot R65.21 SEVERE SEPSIS WITH SEPTIC SHOCK 08/04/2019 STAFFORD DO, JUN Ot R80.9 PROTEINURIA, UNSPECIFIED 08/04/2019 STAFFORD DO, JUN Ot Z66 DO NOT RESUSCITATE 08/04/2019 STAFFORD DO, JUN Ot Z86.73 PRSNL HX OF TIA (TIA), AND CEREB INFRC W 08/04/2019 STAFFORD DO, JUN Ot 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 08/04/2019 STAFFORD DO, JUN Ot 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 IMPLANT 08/04/2019 STAFFORD DO, JUN Ot A41.9 SEPSIS, UNSPECIFIED ORGANISM 08/04/2019 STAFFORD DO, JUN Ot E86.0 DEHYDRATION 08/04/2019 STAFFORD DO, JUN Ot E87.2 ACIDOSIS 08/04/2019 STAFFORD DO, JUN Ot F03.91 UNSPECIFIED DEMENTIA WITH BEHAVIORAL DIS 08/04/2019 STAFFORD DO, JUN Ot F22 DELUSIONAL DISORDERS 08/04/2019 STAFFORD DO, JUN Ot 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 08/04/2019 STAFFORD DO, JUN Ot F32.9 MAJOR DEPRESSIVE DISORDER, SINGLE EPISOD 08/04/2019 STAFFORD DO, JUN Ot G20 PARKINSON'S DISEASE 08/04/2019 STAFFORD DO, JUN Ot H40.9 UNSPECIFIED GLAUCOMA 08/04/2019 STAFFORD DO, JUN Ot I25.10 ATHSCL HEART DISEASE OF [place] CORONARY 08/04/2019 STAFFORD DO, JUN Ot I25.2 OLD MYOCARDIAL INFARCTION 08/04/2019 STAFFORD DO, JUN Ot I48.91 UNSPECIFIED ATRIAL FIBRILLATION 08/04/2019 STAFFORD DO, JUN Ot J18.9 PNEUMONIA, UNSPECIFIED ORGANISM 08/04/2019 STAFFORD DO, JUN Ot J98.11 ATELECTASIS 08/04/2019 STAFFORD DO, JUN Ot K21.9 GASTRO-ESOPHAGEAL REFLUX DISEASE WITHOUT 08/04/2019 STAFFORD DO, JUN Ot K59.09 OTHER CONSTIPATION 08/04/2019 STAFFORD DO, JUN Ot N17.9 ACUTE KIDNEY FAILURE, UNSPECIFIED 08/04/2019 STAFFORD DO, JUN Ot N39.0 URINARY TRACT INFECTION, SITE NOT SPECIF 08/04/2019 STAFFORD DO, JUN Ot R11.2 NAUSEA WITH VOMITING, UNSPECIFIED 08/04/2019 STAFFORD DO, JUN Ot R13.10 DYSPHAGIA, UNSPECIFIED 08/04/2019 STAFFORD DO, JUN Ot R31.9 HEMATURIA, UNSPECIFIED 08/04/2019 STAFFORD DO, JUN Ot R41.84 1 COGNITIVE COMMUNICATION DEFICIT 08/04/2019 STAFFORD DO, JUN Ot R53.1 WEAKNESS 08/04/2019 STAFFORD DO, JUN Ot R64 CACHEXIA 08/04/2019 STAFFORD DO, JUN Ot R65.21 SEVERE SEPSIS WITH SEPTIC SHOCK 08/04/2019 STAFFORD DO, JUN Ot R80.9 PROTEINURIA, UNSPECIFIED 08/04/2019 STAFFORD DO, JUN Ot Z66 DO NOT RESUSCITATE 08/04/2019 STAFFORD DO, JUN Ot Z86.73 PRSNL HX OF TIA (TIA), AND CEREB INFRC W 08/04/2019 STAFFORD DO, JUN Ot 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 08/04/2019 STAFFORD DO, JUN Ot 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 IMPLANT 08/05/2019 STAFFORD DO, JUN Ot A41.9 SEPSIS, UNSPECIFIED ORGANISM 08/05/2019 STAFFORD DO, JUN Ot E86.0 DEHYDRATION 08/05/2019 STAFFORD DO, JUN Ot E87.2 ACIDOSIS 08/05/2019 STAFFORD DO, JUN Ot F03.91 UNSPECIFIED DEMENTIA WITH BEHAVIORAL DIS 08/05/2019 STAFFORD DO, JUN Ot F22 DELUSIONAL DISORDERS 08/05/2019 STAFFORD DO, JUN Ot 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 08/05/2019 STAFFORD DO, JUN Ot F32.9 MAJOR DEPRESSIVE DISORDER, SINGLE EPISOD 08/05/2019 STAFFORD DO, JUN Ot G20 PARKINSON'S DISEASE 08/05/2019 STAFFORD DO, JUN Ot H40.9 UNSPECIFIED GLAUCOMA 08/05/2019 STAFFORD DO, JUN Ot I25.10 ATHSCL HEART DISEASE OF [place] CORONARY 08/05/2019 STAFFORD DO, JUN Ot I25.2 OLD MYOCARDIAL INFARCTION 08/05/2019 STAFFORD DO, JUN Ot I48.91 UNSPECIFIED ATRIAL FIBRILLATION 08/05/2019 STAFFORD DO, JUN Ot J18.9 PNEUMONIA, UNSPECIFIED ORGANISM 08/05/2019 STAFFORD DO, JUN Ot J98.11 ATELECTASIS 08/05/2019 STAFFORD DO, JUN Ot K21.9 GASTRO-ESOPHAGEAL REFLUX DISEASE WITHOUT 08/05/2019 STAFFORD DO, JUN Ot K59.09 OTHER CONSTIPATION 08/05/2019 STAFFORD DO, JUN Ot N17.9 ACUTE KIDNEY FAILURE, UNSPECIFIED 08/05/2019 STAFFORD DO, JUN Ot N39.0 URINARY TRACT INFECTION, SITE NOT SPECIF 08/05/2019 STAFFORD DO, JUN Ot R11.2 NAUSEA WITH VOMITING, UNSPECIFIED 08/05/2019 STAFFORD DO, JUN Ot R13.10 DYSPHAGIA, UNSPECIFIED 08/05/2019 STAFFORD DO, JUN Ot R31.9 HEMATURIA, UNSPECIFIED 08/05/2019 STAFFORD DO, JUN Ot R41.84 1 COGNITIVE COMMUNICATION DEFICIT 08/05/2019 STAFFORD DO, JUN Ot R53.1 WEAKNESS 08/05/2019 STAFFORD DO, JUN Ot R64 [place] 08/05/2019 STAFFORD DO, JUN Ot R65.21 SEVERE SEPSIS WITH SEPTIC SHOCK 08/05/2019 STAFFORD DO, JUN Ot R80.9 PROTEINURIA, UNSPECIFIED 08/05/2019 STAFFORD DO, JUN Ot Z66 DO NOT RESUSCITATE 08/05/2019 STAFFORD DO, JUN Ot Z86.73 PRSNL HX OF TIA (TIA), AND CEREB INFRC W 08/05/2019 STAFFORD DO, JUN Ot 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 08/05/2019 STAFFORD DO, JUN Ot 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 IMPLANT 08/05/2019 STAFFORD DO, JUN Ot A41.9 SEPSIS, UNSPECIFIED ORGANISM 08/05/2019 STAFFORD DO, JUN Ot E86.0 DEHYDRATION 08/05/2019 STAFFORD DO, JUN Ot E87.2 ACIDOSIS 08/05/2019 STAFFORD DO, JUN Ot F03.91 UNSPECIFIED DEMENTIA WITH BEHAVIORAL DIS 08/05/2019 STAFFORD DO, JUN Ot F22 DELUSIONAL DISORDERS 08/05/2019 STAFFORD DO, JUN Ot 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 08/05/2019 STAFFORD DO, JUN Ot F32.9 MAJOR DEPRESSIVE DISORDER, SINGLE EPISOD 08/05/2019 STAFFORD DO, JUN Ot G20 PARKINSON'S DISEASE 08/05/2019 STAFFORD DO, JUN Ot H40.9 UNSPECIFIED GLAUCOMA 08/05/2019 STAFFORD DO, JUN Ot I25.10 ATHSCL HEART DISEASE OF [place] CORONARY 08/05/2019 STAFFORD DO, JUN Ot I25.2 OLD MYOCARDIAL INFARCTION 08/05/2019 STAFFORD DO, JUN Ot I48.91 UNSPECIFIED ATRIAL FIBRILLATION 08/05/2019 STAFFORD DO, JUN Ot J18.9 PNEUMONIA, UNSPECIFIED ORGANISM 08/05/2019 STAFFORD DO, JUN Ot J98.11 ATELECTASIS 08/05/2019 STAFFORD DO, JUN Ot K21.9 GASTRO-ESOPHAGEAL REFLUX DISEASE WITHOUT 08/05/2019 STAFFORD DO, JUN Ot K59.09 OTHER CONSTIPATION 08/05/2019 STAFFORD DO, JUN Ot N17.9 ACUTE KIDNEY FAILURE, UNSPECIFIED 08/05/2019 STAFFORD DO, JUN Ot N39.0 URINARY TRACT INFECTION, SITE NOT SPECIF 08/05/2019 STAFFORD DO, JUN Ot R11.2 NAUSEA WITH VOMITING, UNSPECIFIED 08/05/2019 STAFFORD DO, JUN Ot R13.10 DYSPHAGIA, UNSPECIFIED 08/05/2019 STAFFORD DO, JUN Ot R31.9 HEMATURIA, UNSPECIFIED 08/05/2019 STAFFORD DO, JUN Ot R41.84 1 COGNITIVE COMMUNICATION DEFICIT 08/05/2019 STAFFORD DO, JUN Ot R53.1 WEAKNESS 08/05/2019 STAFFORD DO, JUN Ot R64 [place]HE[place]IA 08/05/2019 STAFFORD DO, JUN Ot R65.21 SEVERE SEPSIS WITH SEPTIC SHOCK 08/05/2019 STAFFORD DO, JUN Ot R80.9 PROTEINURIA, UNSPECIFIED 08/05/2019 STAFFORD DO, JUN Ot Z66 DO NOT RESUSCITATE 08/05/2019 STAFFORD DO, JUN Ot Z86.73 PRSNL HX OF TIA (TIA), AND CEREB INFRC W 08/05/2019 STAFFORD DO, JUN Ot 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 08/05/2019 STAFFORD DO, JUN Ot 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 IMPLANT 08/06/2019 STAFFORD DO, JUN Ot A41.9 SEPSIS, UNSPECIFIED ORGANISM 08/06/2019 STAFFORD DO, JUN Ot E86.0 DEHYDRATION 08/06/2019 STAFFORD DO, JUN Ot E87.2 ACIDOSIS 08/06/2019 STAFFORD DO, JUN Ot F03.91 UNSPECIFIED DEMENTIA WITH BEHAVIORAL DIS 08/06/2019 STAFFORD DO, JUN Ot F22 DELUSIONAL DISORDERS 08/06/2019 STAFFORD DO, JUN Ot 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 08/06/2019 STAFFORD DO, JUN Ot F32.9 MAJOR DEPRESSIVE DISORDER, SINGLE EPISOD 08/06/2019 STAFFORD DO, JUN Ot G20 PARKINSON'S DISEASE 08/06/2019 STAFFORD DO, JUN Ot H40.9 UNSPECIFIED GLAUCOMA 08/06/2019 STAFFORD DO, JUN Ot I25.10 ATHSCL HEART DISEASE OF [place] CORONARY 08/06/2019 STAFFORD DO, JUN Ot I25.2 OLD MYOCARDIAL INFARCTION 08/06/2019 STAFFORD DO, JUN Ot I48.91 UNSPECIFIED ATRIAL FIBRILLATION 08/06/2019 STAFFORD DO, JUN Ot J18.9 PNEUMONIA, UNSPECIFIED ORGANISM 08/06/2019 STAFFORD DO, JUN Ot J98.11 ATELECTASIS 08/06/2019 STAFFORD DO, JUN Ot K21.9 GASTRO-ESOPHAGEAL REFLUX DISEASE WITHOUT 08/06/2019 STAFFORD DO, JUN Ot K59.09 OTHER CONSTIPATION 08/06/2019 STAFFORD DO, JUN Ot N17.9 ACUTE KIDNEY FAILURE, UNSPECIFIED 08/06/2019 STAFFODR DO, JUN Ot N39.0 URINARY TRACT INFECTION, SITE NOT SPECIF 08/06/2019 STAFFORD DO, JUN Ot R11.2 NAUSEA WITH VOMITING, UNSPECIFIED 08/06/2019 STAFFORD DO, JUN Ot R13.10 DYSPHAGIA, UNSPECIFIED 08/06/2019 STAFFORD DO, JUN Ot R31.9 HEMATURIA, UNSPECIFIED 08/06/2019 STAFFORD DO, JUN Ot R41.84 1 COGNITIVE COMMUNICATION DEFICIT 08/06/2019 RIVERA DO, JUN Ot R53.1 WEAKNESS 08/06/2019 RIVERA DO, JUN Ot R64 CACHEXIA 08/06/2019 STAFFORD DO, JUN Ot R65.21 SEVERE SEPSIS WITH SEPTIC SHOCK 08/06/2019 STAFFORD DO, JUN Ot R80.9 PROTEINURIA, UNSPECIFIED 08/06/2019 STAFFORD DO, JUN Ot Z66 DO NOT RESUSCITATE 08/06/2019 RIVERA GUAN JUN Ot Z86.73 PRSNL HX OF TIA (TIA), AND CEREB INFRC W 08/06/2019 STAFFORD DO, JUN Ot 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 08/06/2019 RIVERA GUAN JUN Ot 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 IMPLANT 08/07/2019 RIVERA GUAN JUN Ot A41.9 SEPSIS, UNSPECIFIED ORGANISM 08/07/2019 RIVERA GUAN, JUN Ot E86.0 DEHYDRATION 08/07/2019 RIVERA GUAN JUN Ot E87.2 ACIDOSIS 08/07/2019 RIVERA GUAN JUN Ot F03.91 UNSPECIFIED DEMENTIA WITH BEHAVIORAL DIS 08/07/2019 RIVERA DO, JUN Ot F22 DELUSIONAL DISORDERS 08/07/2019 RIVERA GUAN, JUN Ot 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 08/07/2019 RIVERA GUAN, JUN Ot F32.9 MAJOR DEPRESSIVE DISORDER, SINGLE EPISOD 08/07/2019 RIVERA DO, JUN Ot G20 PARKINSON'S DISEASE 08/07/2019 RIVERA GUAN JUN Ot H40.9 UNSPECIFIED GLAUCOMA 08/07/2019 RIVERA GUAN JUN Ot I25.10 ATHSCL HEART DISEASE OF [place] CORONARY 08/07/2019 RIVERA GUAN, JUN Ot I25.2 OLD MYOCARDIAL INFARCTION 08/07/2019 RIVERA GUAN JUN Ot I48.91 UNSPECIFIED ATRIAL FIBRILLATION 08/07/2019 RIVERA GUAN JUN Ot J18.9 PNEUMONIA, UNSPECIFIED ORGANISM 08/07/2019 RIVERA GUAN, JUN Ot J98.11 ATELECTASIS 08/07/2019 RIVERA GUAN JUN Ot K21.9 GASTRO-ESOPHAGEAL REFLUX DISEASE WITHOUT 08/07/2019 STAFFORD DO, JUN Ot K59.09 OTHER CONSTIPATION 08/07/2019 STAFFORD DO, JUN Ot N17.9 ACUTE KIDNEY FAILURE, UNSPECIFIED 08/07/2019 STAFFORD DO, JUN Ot N39.0 URINARY TRACT INFECTION, SITE NOT SPECIF 08/07/2019 STAFFORD DO, JUN Ot R11.2 NAUSEA WITH VOMITING, UNSPECIFIED 08/07/2019 STAFFORD DO, JUN Ot R13.10 DYSPHAGIA, UNSPECIFIED 08/07/2019 STAFFORD DO, JUN Ot R31.9 HEMATURIA, UNSPECIFIED 08/07/2019 STAFFORD DO, JUN Ot R41.84 1 COGNITIVE COMMUNICATION DEFICIT 08/07/2019 STAFFORD DO, JUN Ot R53.1 WEAKNESS 08/07/2019 STAFFORD DO, JUN Ot R64 [place]HE[place]IA 08/07/2019 STAFFORD DO, JUN Ot R65.21 SEVERE SEPSIS WITH SEPTIC SHOCK 08/07/2019 STAFFORD DO, JUN Ot R80.9 PROTEINURIA, UNSPECIFIED 08/07/2019 STAFFORD DO, JUN Ot Z66 DO NOT RESUSCITATE 08/07/2019 STAFFORD DO, JUN Ot Z86.73 PRSNL HX OF TIA (TIA), AND CEREB INFRC W 08/07/2019 STAFFORD DO, JUN Ot 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 08/07/2019 STAFFORD DO, JUN Ot 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 IMPLANT 08/07/2019 STAFFORD DO, JUN Ot A41.9 SEPSIS, UNSPECIFIED ORGANISM 08/07/2019 STAFFORD DO, JUN Ot E86.0 DEHYDRATION 08/07/2019 STAFFORD DO, JUN Ot E87.2 ACIDOSIS 08/07/2019 STAFFORD DO, JUN Ot F03.91 UNSPECIFIED DEMENTIA WITH BEHAVIORAL DIS 08/07/2019 STAFFORD DO, JUN Ot F22 DELUSIONAL DISORDERS 08/07/2019 STAFFORD DO, JUN Ot 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 08/07/2019 RIVERA DO, JUN Ot F32.9 MAJOR DEPRESSIVE DISORDER, SINGLE EPISOD 08/07/2019 STAFFORD DO, JUN Ot G20 PARKINSON'S DISEASE 08/07/2019 STAFFORD DO, JUN Ot H40.9 UNSPECIFIED GLAUCOMA 08/07/2019 STAFFORD DO, JUN Ot I25.10 ATHSCL HEART DISEASE OF [place] CORONARY 08/07/2019 STAFFORD DO, JUN Ot I25.2 OLD MYOCARDIAL INFARCTION 08/07/2019 STAFFORD DO, JUN Ot I48.91 UNSPECIFIED ATRIAL FIBRILLATION 08/07/2019 STAFFORD DO, JUN Ot J18.9 PNEUMONIA, UNSPECIFIED ORGANISM 08/07/2019 STAFFORD DO, JUN Ot J98.11 ATELECTASIS 08/07/2019 STAFFORD DO, JUN Ot K21.9 GASTRO-ESOPHAGEAL REFLUX DISEASE WITHOUT 08/07/2019 STAFFORD DO, JUN Ot K59.09 OTHER CONSTIPATION 08/07/2019 STAFFORD DO, JUN Ot N17.9 ACUTE KIDNEY FAILURE, UNSPECIFIED 08/07/2019 STAFFORD DO, JUN Ot N39.0 URINARY TRACT INFECTION, SITE NOT SPECIF 08/07/2019 STAFFORD DO, JUN Ot R11.2 NAUSEA WITH VOMITING, UNSPECIFIED 08/07/2019 STAFFORD DO, JUN Ot R13.10 DYSPHAGIA, UNSPECIFIED 08/07/2019 STAFFORD DO, JUN Ot R31.9 HEMATURIA, UNSPECIFIED 08/07/2019 STAFFORD DO, JUN Ot R41.84 1 COGNITIVE COMMUNICATION DEFICIT 08/07/2019 STAFFORD DO, JUN Ot R53.1 WEAKNESS 08/07/2019 STAFFORD DO, JUN Ot R64 [place] 08/07/2019 STAFFORD DO, JUN Ot R65.21 SEVERE SEPSIS WITH SEPTIC SHOCK 08/07/2019 STAFFORD DO, JUN Ot R80.9 PROTEINURIA, UNSPECIFIED 08/07/2019 STAFFORD DO, JUN Ot Z66 DO NOT RESUSCITATE 08/07/2019 STAFFORD DO, JUN Ot Z86.73 PRSNL HX OF TIA (TIA), AND CEREB INFRC W 08/07/2019 STAFFORD DO, JUN Ot 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 08/07/2019 STAFFORD DO, JUN Ot 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 IMPLANT 08/07/2019 STAFFORD DO, JUN Ot A41.9 SEPSIS, UNSPECIFIED ORGANISM 08/07/2019 STAFFORD DO, JUN Ot E86.0 DEHYDRATION 08/07/2019 STAFFORD DO, JUN Ot E87.2 ACIDOSIS 08/07/2019 STAFFORD DO, JUN Ot F03.91 UNSPECIFIED DEMENTIA WITH BEHAVIORAL DIS 08/07/2019 STAFFORD DO, JUN Ot F22 DELUSIONAL DISORDERS 08/07/2019 STAFFORD DO, JUN Ot 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 08/07/2019 STAFFORD DO, JUN Ot F32.9 MAJOR DEPRESSIVE DISORDER, SINGLE EPISOD 08/07/2019 STAFFORD DO, JUN Ot G20 PARKINSON'S DISEASE 08/07/2019 STAFFORD DO, JUN Ot H40.9 UNSPECIFIED GLAUCOMA 08/07/2019 STAFFORD DO, JUN Ot I25.10 ATHSCL HEART DISEASE OF [place] CORONARY 08/07/2019 STAFFORD DO, JUN Ot I25.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 MYOCARDIAL INFARCTION 08/07/2019 STAFFORD DO, JUN Ot I48.91 UNSPECIFIED ATRIAL FIBRILLATION 08/07/2019 STAFFORD DO, JUN Ot J18.9 PNEUMONIA, UNSPECIFIED ORGANISM 08/07/2019 STAFFORD DO, JUN Ot J98.11 ATELECTASIS 08/07/2019 STAFFORD DO, JUN Ot K21.9 GASTRO-ESOPHAGEAL REFLUX DISEASE WITHOUT 08/07/2019 STAFFORD DO, JUN Ot K59.09 OTHER CONSTIPATION 08/07/2019 STAFFORD DO, JUN Ot N17.9 ACUTE KIDNEY FAILURE, UNSPECIFIED 08/07/2019 STAFFORD DO, JUN Ot N39.0 URINARY TRACT INFECTION, SITE NOT SPECIF 08/07/2019 STAFFORD DO, JUN Ot R11.2 NAUSEA WITH VOMITING, UNSPECIFIED 08/07/2019 STAFFORD DO, JUN Ot R13.10 DYSPHAGIA, UNSPECIFIED 08/07/2019 STAFFORD DO, JUN Ot R31.9 HEMATURIA, UNSPECIFIED 08/07/2019 STAFFORD DO, JUN Ot R41.84 1 COGNITIVE COMMUNICATION DEFICIT 08/07/2019 STAFFORD DO, JUN Ot R53.1 WEAKNESS 08/07/2019 STAFFORD DO, JUN Ot R64 [place]HEXIA 08/07/2019 STAFFORD DO, JUN Ot R65.21 SEVERE SEPSIS WITH SEPTIC SHOCK 08/07/2019 STAFFORD DO, JUN Ot R80.9 PROTEINURIA, UNSPECIFIED 08/07/2019 STAFFORD DO, JUN Ot Z66 DO NOT RESUSCITATE 08/07/2019 STAFFORD DO, JUN Ot Z86.73 PRSNL HX OF TIA (TIA), AND CEREB INFRC W 08/07/2019 STAFFORD DO, JUN Ot 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 08/07/2019 STAFFORD DO, JUN Ot 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 IMPLANT 08/07/2019 STAFFORD DO, JUN Ot A41.01 SEPSIS DUE TO METHICILLIN SUSCEPTIBLE ST 08/07/2019 STAFFORD DO, JUN Ot A41.9 SEPSIS, UNSPECIFIED ORGANISM 08/07/2019 STAFFORD DO, JUN Ot D69.6 THROMBOCYTOPENIA, UNSPECIFIED 08/07/2019 STAFFORD DO, JUN Ot E83.42 HYPOMAGNESEMIA 08/07/2019 STAFFORD DO, JUN Ot E86.0 DEHYDRATION 08/07/2019 STAFFORD DO, JUN Ot E87.2 ACIDOSIS 08/07/2019 STAFFORD DO, JUN Ot E87.6 HYPOKALEMIA 08/07/2019 STAFFORD DO, JUN Ot F03.91 UNSPECIFIED DEMENTIA WITH BEHAVIORAL DIS 08/07/2019 STAFFORD DO, JUN Ot F22 DELUSIONAL DISORDERS 08/07/2019 STAFFORD DO, JUN Ot 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 08/07/2019 STAFFORD DO, JUN Ot F32.9 MAJOR DEPRESSIVE DISORDER, SINGLE EPISOD 08/07/2019 STAFFORD DO, JUN Ot G20 PARKINSON'S DISEASE 08/07/2019 STAFFORD DO, JUN Ot H40.9 UNSPECIFIED GLAUCOMA 08/07/2019 STAFFORD DO, JUN Ot I25.10 ATHSCL HEART DISEASE OF [place] CORONARY 08/07/2019 STAFFORD DO, JUN Ot I25.2 OLD MYOCARDIAL INFARCTION 08/07/2019 STAFFORD DO, JUN Ot I42.9 CARDIOMYOPATHY, UNSPECIFIED 08/07/2019 STAFFORD DO, JUN Ot I48.20 CHRONIC ATRIAL FIBRILLATION, UNSPECIFIED 08/07/2019 STAFFORD DO, JUN Ot I48.91 UNSPECIFIED ATRIAL FIBRILLATION 08/07/2019 STAFFORD DO, JUN Ot I50.9 HEART FAILURE, UNSPECIFIED 08/07/2019 STAFFORD DO, JUN Ot J18.9 PNEUMONIA, UNSPECIFIED ORGANISM 08/07/2019 STAFFORD DO, JUN Ot J98.11 ATELECTASIS 08/07/2019 STAFFORD DO, JUN Ot K21.9 GASTRO-ESOPHAGEAL REFLUX DISEASE WITHOUT 08/07/2019 STAFFORD DO, JUN Ot K59.09 OTHER CONSTIPATION 08/07/2019 STAFFORD DO, JUN Ot N17.9 ACUTE KIDNEY FAILURE, UNSPECIFIED 08/07/2019 STAFFORD DO, JUN Ot N39.0 URINARY TRACT INFECTION, SITE NOT SPECIF 08/07/2019 STAFFORD DO, JUN Ot R11.2 NAUSEA WITH VOMITING, UNSPECIFIED 08/07/2019 STAFFORD DO, JUN Ot R13.10 DYSPHAGIA, UNSPECIFIED 08/07/2019 STAFFORD DO, JUN Ot R31.9 HEMATURIA, UNSPECIFIED 08/07/2019 STAFFORD DO, JUN Ot R41.84 1 COGNITIVE COMMUNICATION DEFICIT 08/07/2019 STAFFORD DO, JUN Ot R53.1 WEAKNESS 08/07/2019 STAFFORD DO, JUN Ot R64 CACHEXIA 08/07/2019 STAFFORD DO, JUN Ot R65.21 SEVERE SEPSIS WITH SEPTIC SHOCK 08/07/2019 STAFFORD DO, JUN Ot R80.9 PROTEINURIA, UNSPECIFIED 08/07/2019 STAFFORD DO, JUN Ot Z66 DO NOT RESUSCITATE 08/07/2019 STAFFORD DO, JUN Ot Z86.73 PRSNL HX OF TIA (TIA), AND CEREB INFRC W 08/07/2019 STAFFORD DO, JUN Ot 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 Results Test Result Range [id number] - 05/19/16 14:12 [id number] SPECIMEN [facility] Automated blood complete blood count (he mogram) panel - 05/19/16 14:12 Blood leukocytes automated count (number/volume) 5.9 10*3/uL 4.3-11.0 Blood erythrocytes automated count (number/volume) 4.65 10*6/uL 4.35-5.85 Venous blood hemoglobin measurement (mass/volume) 15.2 g/dL 13.3-17.7 Blood hematocrit (volume fraction) 45 % 40-54 Automated erythrocyte mean corpuscular volume 96 [ foz_us] 80-99 Automated erythrocyte mean corpuscular h emoglobin (mass per erythrocyte) 33 pg 25-34 Automated erythrocyte mean corpuscular h emoglobin concentration measurement (mass/volume) 34 g/dL 32-36 Automated erythrocyte distribution width ratio 13. 7 % 10.0- 14.5 Automated blood platelet count (count/volume) 105 10*3/uL 130-400 Automated blood platelet mean volume measurement 9.2 [foz_us] 7.4-10.4 Comprehensive metabolic panel - 05/19/16 14:12 Serum or plasma sodium measurement (moles/volume) 135 mmol/L 135-145 Serum or plasma potassium measurement (moles/volume) 4.5 mmol/L 3.6-5.0 Serum or plasma chloride measurement (moles/volume) 102 mmol/L 98-107 Carbon dioxide 22 mmol/L 21-32 Serum or plasma anion gap determination (moles/volume) 11 mmol/L 5-14 Serum or plasma urea nitrogen measurement (mass/volume ) 23 mg/dL 7-18 Serum or plasma creatinine measurement (mass/volume) 1.31 mg/dL 0.60-1.30 Serum or plasma urea nitrogen/creatinine mass ratio 18 NRG Serum or plasma creatinine measurement w ith calculation of estimated glomerular filtration rate 52 NRG Serum or plasma glucose measurement (mass/volume) 115 mg/dL 70-105 Serum or plasma calcium measurement (mass/volume) 8.6 mg/dL 8.5-10.1 Serum or plasma total bilirubin measurement (mass/volu me) 0.8 mg/dL 0.1-1.0 Serum or plasma alkaline phosphatase rossana surement (enzymatic activity/volume) 74 U/L 40-136 Serum or plasma aspartate aminotransfera se measurement (enzymatic activity/volume) 27 U/L 5-34 Serum or plasma alanine aminotransferase measurement (enzymatic activity/volume) 11 U/L 0-55 Serum or plasma protein measurement (mass/volume) 6.8 g/dL 6.4-8.2 Serum or plasma albumin measurement (mass/volume) 4.2 g/dL 3.2-4.5 PT panel in platelet poor plasma by coag ulation assay - 05/19/16 14:12 Prothrombin time (PT) in platelet poor plasma by coagu lation assay 14.4 s 12.2-14.7 INR in platelet poor plasma or blood by coagulation as say 1.2 0.8-1.4 Complete urinalysis with reflex to cultu re - 05/19/16 16:49 Urine color determination YELLOW NRG Urine clarity determination CLEAR NR G Urine pH measurement by test strip 5 5-9 Specific gravity of urine by test strip 1.020 1.016-1.022 Urine protein assay by test strip, semi-quantitative 1+ NEGATIVE Urine glucose detection by automated test strip NE GATIVE NEGATIVE Erythrocytes detection in urine sediment by light micr oscopy 4+ NEGATIVE Urine ketones detection by automated test strip 1+ NEGATIVE Urine nitrite detection by test strip NEGATIVE NEGATIVE Urine total bilirubin detection by test strip NEGA TIVE NEGATIVE Urine urobilinogen measurement by automated test strip (mass/volume) NORMAL NORMAL Urine leukocyte esterase detection by dipstick 1+ NEGATIVE Automated urine sediment erythrocyte cou nt by microscopy (number/high power field) [HPF] NRG Automated urine sediment leukocyte count by microscopy (number/high power field) [HPF] NRG Bacteria detection in urine sediment by light microsco py NONE NRG Crystals detection in urine sediment by light microsco py NONE NRG Casts detection in urine sediment by light microscopy NONE NRG Mucus detection in urine sediment by light microscopy NEGATIVE NRG Complete urinalysis with reflex to culture NO NRG Complete blood count (CBC) with automate d white blood cell (WBC) differential - 06/19/16 01:26 Blood leukocytes automated count (number/volume) 6.7 10*3/uL 4.3-11.0 Blood erythrocytes automated count (number/volume) 4.02 10*6/uL 4.35-5.85 Venous blood hemoglobin measurement (mass/volume) 13.1 g/dL 13.3-17.7 Blood hematocrit (volume fraction) 39 % 40-54 Automated erythrocyte mean corpuscular volume 98 [ foz_us] 80-99 Automated erythrocyte mean corpuscular h emoglobin (mass per erythrocyte) 33 pg 25-34 Automated erythrocyte mean corpuscular h emoglobin concentration measurement (mass/volume) 33 g/dL 32-36 Automated erythrocyte distribution width ratio 13. 3 % 10.0- 14.5 Automated blood platelet count (count/volume) 107 10*3/uL 130-400 Automated blood platelet mean volume measurement 9.2 [foz_us] 7.4-10.4 Automated blood neutrophils/100 leukocytes 59 % 42-75 Automated blood lymphocytes/100 leukocytes 30 % 12-44 Blood monocytes/100 leukocytes 9 % 0-12 Automated blood eosinophils/100 leukocytes 2 % 0-10 Automated blood basophils/100 leukocytes 0 % 0-10 Blood neutrophils automated count (number/volume) 3.9 10*3 1.8-7.8 Blood lymphocytes automated count (number/volume) 2.0 10*3 1.0-4.0 Blood monocytes automated count (number/volume) 0. 6 10*3 0.0-1.0 Automated eosinophil count 0.1 10*3/uL 0 .0-0.3 Automated blood basophil count (count/volume) 0.0 10*3/uL 0.0-0.1 PT panel in platelet poor plasma by coag ulation assay - 06/19/16 01:26 Prothrombin time (PT) in platelet poor plasma by coagu lation assay 14.1 s 12.2-14.7 INR in platelet poor plasma or blood by coagulation as say 1.1 0.8-1.4 Activated partial thromboplastin time (a PTT) in platelet poor plasma bycoagulation assay - 06/19/16 01:26 Activated partial thromboplastin time (a PTT) in platelet poor plasma bycoagulation assay 29 s 24-35 Whole blood basic metabolic panel - 06/06 09/20 01:26 Serum or plasma sodium measurement (moles/volume) 139 mmol/L 135-145 Serum or plasma potassium measurement (moles/volume) 4.3 mmol/L 3.6-5.0 Serum or plasma chloride measurement (moles/volume) 107 mmol/L 98-107 Carbon dioxide 24 mmol/L 21-32 Serum or plasma anion gap determination (moles/volume) 8 mmol/L 5-14 Serum or plasma urea nitrogen measurement (mass/volume ) 17 mg/dL 7-18 Serum or plasma creatinine measurement (mass/volume) 0.95 mg/dL 0.60-1.30 Serum or plasma urea nitrogen/creatinine mass ratio 18 NRG Serum or plasma creatinine measurement w ith calculation of estimated glomerular filtration rate > NRG Serum or plasma glucose measurement (mass/volume) 85 mg/dL 70-105 Serum or plasma calcium measurement (mass/volume) 8.3 mg/dL 8.5-10.1 Methicillin resistant Staphylococcus aur eus (MRSA) screening culture - 06/19/16 05:24 MRSA SCREEN RESULT MRSA ISOLATED NRG Complete urinalysis with reflex to cultu re - 06/19/16 09:08 Urine color determination YELLOW NRG Urine clarity determination CLEAR NR G Urine pH measurement by test strip 5 5-9 Specific gravity of urine by test strip 1.015 1.016-1.022 Urine protein assay by test strip, semi-quantitative NEGATIVE NEGATIVE Urine glucose detection by automated test strip NE GATIVE NEGATIVE Erythrocytes detection in urine sediment by light micr oscopy NEGATIVE NEGATIVE Urine ketones detection by automated test strip NE GATIVE NEGATIVE Urine nitrite detection by test strip NEGATIVE NEGATIVE Urine total bilirubin detection by test strip NEGA TIVE NEGATIVE Urine urobilinogen measurement by automated test strip (mass/volume) NORMAL NORMAL Urine leukocyte esterase detection by dipstick 1+ NEGATIVE Automated urine sediment erythrocyte cou nt by microscopy (number/high power field) [HPF] NRG Automated urine sediment leukocyte count by microscopy (number/high power field) NONE NRG Bacteria detection in urine sediment by light microsco py NEGATIVE NRG Squamous epithelial cells detection in u rine sediment by light microscopy NONE NRG Crystals detection in urine sediment by light microsco py PRESENT NRG Casts detection in urine sediment by light microscopy NONE NRG Mucus detection in urine sediment by light microscopy NEGATIVE NRG Complete urinalysis with reflex to culture NO NRG Calcium oxalate crystals detection in ur ine sediment by light microscopy FEW NRG Complete urinalysis with reflex to cultu re - 03/27/17 22:45 Urine color determination ANGELA NRG Urine clarity determination SLIGHTLY CLOUDY NRG Urine pH measurement by test strip 5 5-9 Specific gravity of urine by test strip 1.020 1.016-1.022 Urine protein assay by test strip, semi-quantitative 2+ NEGATIVE Urine glucose detection by automated test strip NE GATIVE NEGATIVE Erythrocytes detection in urine sediment by light micr oscopy 3+ NEGATIVE Urine ketones detection by automated test strip NE GATIVE NEGATIVE Urine nitrite detection by test strip NEGATIVE NEGATIVE Urine total bilirubin detection by test strip NEGA TIVE NEGATIVE Urine urobilinogen measurement by automated test strip (mass/volume) NORMAL NORMAL Urine leukocyte esterase detection by dipstick 3+ NEGATIVE Automated urine sediment erythrocyte cou nt by microscopy (number/high power field) NONE NRG Automated urine sediment leukocyte count by microscopy (number/high power field) [HPF] NRG Bacteria detection in urine sediment by light microsco py MODERATE NRG Squamous epithelial cells detection in u rine sediment by light microscopy 2-5 NRG Crystals detection in urine sediment by light microsco py NONE NRG Casts detection in urine sediment by light microscopy NONE NRG Mucus detection in urine sediment by light microscopy MODERATE NRG Complete urinalysis with reflex to culture YES NRG Bacterial urine culture - 03/27/17 22:45 Bacterial urine culture [id number] NRG COLONY COUNT <10,000 NRG FTX;REPORTABLE SENSITIVITY REPORTED 03/30 10:05 [facility] Bacterial susceptibility panel - 7 22:45 Oxacillin susceptibility test by minimum inhibitory co ncentration >= NRG Gentamicin susceptibility test by minimum inhibitory c oncentration <= NRG Trimethoprim/sulfamethoxazole susceptibi lity test by minimum inhibitoryconcentration <= NRG Vancomycin susceptibility test by minimum inhibitory c oncentration 1 NRG Levofloxacin susceptibility test by minimum inhibitory concentration >= NRG Rifampin susceptibility test by minimum inhibitory con centration <= NRG Tetracycline susceptibility test by minimum inhibitory concentration <= NRG Ciprofloxacin susceptibility test by minimum inhibitor y concentration R [facility] Bacterial susceptibility panel - 7 22:45 Gentamicin susceptibility test by minimum inhibitory c oncentration >= NRG Trimethoprim/sulfamethoxazole susceptibi lity test by minimum inhibitoryconcentration >= NRG Ampicillin susceptibility test by minimum inhibitory c oncentration >= NRG Tobramycin susceptibility test by minimum inhibitory c oncentration 8 NRG Cefazolin susceptibility test by minimum inhibitory co ncentration S NRG Ceftriaxone susceptibility test by minimum inhibitory concentration S NRG Ampicillin/sulbactam susceptibility test by minimum inhibitory concentration 16 NRG Piperacillin/tazobactam susceptibility t est by minimum inhibitory concentration <= NRG Ciprofloxacin susceptibility test by minimum inhibitor y concentration >= NRG Meropenem susceptibility test by minimum inhibitory co ncentration <= NRG Nitrofurantoin susceptibility test by mi nimum inhibitory concentration 128 NRG Aztreonam susceptibility test by minimum inhibitory co ncentration S NRG Amikacin susceptibility test by minimum inhibitory con centration S [facility] Comprehensive metabolic panel - 05/05/17 21:55 Serum or plasma sodium measurement (moles/volume) 138 mmol/L 135-145 Serum or plasma potassium measurement (moles/volume) 3.9 mmol/L 3.6-5.0 Serum or plasma chloride measurement (moles/volume) 105 mmol/L 98-107 Carbon dioxide 25 mmol/L 21-32 Serum or plasma anion gap determination (moles/volume) 8 mmol/L 5-14 Serum or plasma urea nitrogen measurement (mass/volume ) 12 mg/dL 7-18 Serum or plasma creatinine measurement (mass/volume) 1.04 mg/dL 0.60-1.30 Serum or plasma urea nitrogen/creatinine mass ratio 12 NRG Serum or plasma creatinine measurement w ith calculation of estimated glomerular filtration rate > NRG Serum or plasma glucose measurement (mass/volume) 112 mg/dL 70-105 Serum or plasma calcium measurement (mass/volume) 8.4 mg/dL 8.5-10.1 Serum or plasma total bilirubin measurement (mass/volu me) 0.9 mg/dL 0.1-1.0 Serum or plasma alkaline phosphatase rossana surement (enzymatic activity/volume) 80 U/L 40-136 Serum or plasma aspartate aminotransfera se measurement (enzymatic activity/volume) 11 U/L 5-34 Serum or plasma alanine aminotransferase measurement (enzymatic activity/volume) 9 U/L 0-55 Serum or plasma protein measurement (mass/volume) 6.6 g/dL 6.4-8.2 Serum or plasma albumin measurement (mass/volume) 3.5 g/dL 3.2-4.5 Complete blood count (CBC) with automate d white blood cell (WBC) differential - 05/05/17 21:55 Blood leukocytes automated count (number/volume) 10.0 10*3/uL 4.3-11.0 Blood erythrocytes automated count (number/volume) 3.82 10*6/uL 4.35-5.85 Venous blood hemoglobin measurement (mass/volume) 12.1 g/dL 13.3-17.7 Blood hematocrit (volume fraction) 36 % 40-54 Automated erythrocyte mean corpuscular volume 94 [ foz_us] 80-99 Automated erythrocyte mean corpuscular h emoglobin (mass per erythrocyte) 32 pg 25-34 Automated erythrocyte mean corpuscular h emoglobin concentration measurement (mass/volume) 34 g/dL 32-36 Automated erythrocyte distribution width ratio 13. 0 % 10.0- 14.5 Automated blood platelet count (count/volume) 142 10*3/uL 130-400 Automated blood platelet mean volume measurement 9.1 [foz_us] 7.4-10.4 Automated blood neutrophils/100 leukocytes 69 % 42-75 Automated blood lymphocytes/100 leukocytes 21 % 12-44 Blood monocytes/100 leukocytes 10 % 0-12 Automated blood eosinophils/100 leukocytes 0 % 0-10 Automated blood basophils/100 leukocytes 0 % 0-10 Blood neutrophils automated count (number/volume) 6.9 10*3 1.8-7.8 Blood lymphocytes automated count (number/volume) 2.1 10*3 1.0-4.0 Blood monocytes automated count (number/volume) 1. 0 10*3 0.0-1.0 Automated eosinophil count 0.0 10*3/uL 0 .0-0.3 Automated blood basophil count (count/volume) 0.0 10*3/uL 0.0-0.1 Blood lactic acid measurement (moles/vol ume) - 05/05/17 21:55 Blood lactic acid measurement (moles/volume) 0.70 mmol/L 0.50-2.00 Complete blood count (CBC) with automate d white blood cell (WBC) differential - 05/08/17 10:25 Blood leukocytes automated count (number/volume) 9.1 10*3/uL 4.3-11.0 Blood erythrocytes automated count (number/volume) 3.62 10*6/uL 4.35-5.85 Venous blood hemoglobin measurement (mass/volume) 11.5 g/dL 13.3-17.7 Blood hematocrit (volume fraction) 35 % 40-54 Automated erythrocyte mean corpuscular volume 96 [ foz_us] 80-99 Automated erythrocyte mean corpuscular h emoglobin (mass per erythrocyte) 32 pg 25-34 Automated erythrocyte mean corpuscular h emoglobin concentration measurement (mass/volume) 33 g/dL 32-36 Automated erythrocyte distribution width ratio 13. 0 % 10.0- 14.5 Automated blood platelet count (count/volume) 150 10*3/uL 130-400 Automated blood platelet mean volume measurement 9.4 [foz_us] 7.4-10.4 Automated blood neutrophils/100 leukocytes 97 % 42-75 Automated blood lymphocytes/100 leukocytes 2 % 12-44 Blood monocytes/100 leukocytes 1 % 0-12 Automated blood eosinophils/100 leukocytes 0 % 0-10 Automated blood basophils/100 leukocytes 0 % 0-10 Blood neutrophils automated count (number/volume) 8.8 10*3 1.8-7.8 Blood lymphocytes automated count (number/volume) 0.2 10*3 1.0-4.0 Blood monocytes automated count (number/volume) 0. 1 10*3 0.0-1.0 Automated eosinophil count 0.0 10*3/uL 0 .0-0.3 Automated blood basophil count (count/volume) 0.0 10*3/uL 0.0-0.1 Complete urinalysis with reflex to cultu re - 05/08/17 10:25 Urine color determination YELLOW NRG Urine clarity determination VERY CLOUDY NRG Urine pH measurement by test strip 5 5-9 Specific gravity of urine by test strip 1.015 1.016-1.022 Urine protein assay by test strip, semi-quantitative 3+ NEGATIVE Urine glucose detection by automated test strip NE GATIVE NEGATIVE Erythrocytes detection in urine sediment by light micr oscopy 5+ NEGATIVE Urine ketones detection by automated test strip NE GATIVE NEGATIVE Urine nitrite detection by test strip POSITIVE NEGATIVE Urine total bilirubin detection by test strip NEGA TIVE NEGATIVE Urine urobilinogen measurement by automated test strip (mass/volume) NORMAL NORMAL Urine leukocyte esterase detection by dipstick 3+ NEGATIVE Automated urine sediment erythrocyte cou nt by microscopy (number/high power field) NONE NRG Automated urine sediment leukocyte count by microscopy (number/high power field) TNTC NRG Bacteria detection in urine sediment by light microsco py TRACE NRG Squamous epithelial cells detection in u rine sediment by light microscopy NONE NRG Crystals detection in urine sediment by light microsco py PRESENT NRG Casts detection in urine sediment by light microscopy NONE NRG Mucus detection in urine sediment by light microscopy NEGATIVE NRG Complete urinalysis with reflex to culture YES NRG Amorphous sediment detection in urine sediment by ligh t microscopy LARGE LADONNA URATES NRG Blood lactic acid measurement (moles/vol ume) - 05/08/17 10:25 Blood lactic acid measurement (moles/volume) 2.97 mmol/L 0.50-2.00 Comprehensive metabolic panel - 05/08/17 10:25 Serum or plasma sodium measurement (moles/volume) 140 mmol/L 135-145 Serum or plasma potassium measurement (moles/volume) 4.3 mmol/L 3.6-5.0 Serum or plasma chloride measurement (moles/volume) 108 mmol/L 98-107 Carbon dioxide 22 mmol/L 21-32 Serum or plasma anion gap determination (moles/volume) 10 mmol/L 5-14 Serum or plasma urea nitrogen measurement (mass/volume ) 17 mg/dL 7-18 Serum or plasma creatinine measurement (mass/volume) 1.96 mg/dL 0.60-1.30 Serum or plasma urea nitrogen/creatinine mass ratio 9 NRG Serum or plasma creatinine measurement w ith calculation of estimated glomerular filtration rate 33 NRG Serum or plasma glucose measurement (mass/volume) 147 mg/dL 70-105 Serum or plasma calcium measurement (mass/volume) 8.2 mg/dL 8.5-10.1 Serum or plasma total bilirubin measurement (mass/volu me) 1.0 mg/dL 0.1-1.0 Serum or plasma alkaline phosphatase rossana surement (enzymatic activity/volume) 72 U/L 40-136 Serum or plasma aspartate aminotransfera se measurement (enzymatic activity/volume) 15 U/L 5-34 Serum or plasma alanine aminotransferase measurement (enzymatic activity/volume) 10 U/L 0-55 Serum or plasma protein measurement (mass/volume) 6.5 g/dL 6.4-8.2 Serum or plasma albumin measurement (mass/volume) 3.1 g/dL 3.2-4.5 Influenza virus A and B antigen detectio n - 05/08/17 10:25 FLU RESULT NEGATIVE FOR INFLUENZA A AND B ANTIGENS BY IA NR Blood manual differential performed dete ction - 05/08/17 10:25 Manual blood segmented neutrophils/100 leukocytes 93 % NRG Blood band neutrophils/100 leukocytes 4 % NRG Manual blood lymphocytes/100 leukocytes 3 % NRG Blood erythrocyte morphology finding identification NORMAL NRG Bacterial urine culture - 05/08/17 10:25 Bacterial urine culture [id number] NRG COLONY COUNT >100,000/ML NR FTX;REPORTABLE SENSITIVITY REPORTED AT 1551, 12 17 NR Bacterial blood culture - 05/08/17 10:25 QUANTITY OF GROWTH Isolated NRG MRSA AGAR MRSA isolated (Screening test for MRSA is positive) [facility] Bacterial blood culture [id number] [facility] Bacterial susceptibility panel - 7 10:25 Oxacillin susceptibility test by minimum inhibitory co ncentration <= NRG Gentamicin susceptibility test by minimum inhibitory c oncentration <= NRG Trimethoprim/sulfamethoxazole susceptibi lity test by minimum inhibitoryconcentration S NRG Vancomycin susceptibility test by minimum inhibitory c oncentration 1 NRG Levofloxacin susceptibility test by minimum inhibitory concentration >= NRG Rifampin susceptibility test by minimum inhibitory con centration <= NRG Tetracycline susceptibility test by minimum inhibitory concentration <= NRG Ciprofloxacin susceptibility test by minimum inhibitor y concentration R NRG PT panel in platelet poor plasma by coag ulation assay - 05/08/17 11:02 Prothrombin time (PT) in platelet poor plasma by coagu lation assay 14.5 s 12.2-14.7 INR in platelet poor plasma or blood by coagulation as say 1.1 0.8-1.4 Activated partial thromboplastin time (a PTT) in platelet poor plasma bycoagulation assay - 05/08/17 11:02 Activated partial thromboplastin time (a PTT) in platelet poor plasma bycoagulation assay 32 s 24-35 Bacterial blood culture - 05/08/17 11:02 FREE TEXT EXTERNAL SENSITIVITY REPORTED 05/11 06:40 NRG QUANTITY OF GROWTH Isolated [facility] MRSA AGAR MRSA isolated (Screening test for MRSA is positive) [facility] Bacterial blood culture [id number] [facility] Bacterial susceptibility panel - 7 11:02 Oxacillin susceptibility test by minimum inhibitory co ncentration 0.5 NRG Gentamicin susceptibility test by minimum inhibitory c oncentration <= NRG Clindamycin susceptibility test by minimum inhibitory concentration >= NRG Erythromycin susceptibility test by minimum inhibitory concentration >= NRG Trimethoprim/sulfamethoxazole susceptibi lity test by minimum inhibitoryconcentration S NRG Vancomycin susceptibility test by minimum inhibitory c oncentration 1 NRG Levofloxacin susceptibility test by minimum inhibitory concentration >= NRG Rifampin susceptibility test by minimum inhibitory con centration <= NRG Tetracycline susceptibility test by minimum inhibitory concentration <= NRG Serum or plasma lactate measurement (mol es/volume) - 05/08/17 12:45 Serum or plasma lactate measurement (moles/volume) 2.52 mmol/L 0.50-2.00 Complete blood count (CBC) with automate d white blood cell (WBC) differential - 05/09/17 05:23 Blood leukocytes automated count (number/volume) 10.8 10*3/uL 4.3-11.0 Blood erythrocytes automated count (number/volume) 3.21 10*6/uL 4.35-5.85 Venous blood hemoglobin measurement (mass/volume) 10.1 g/dL 13.3-17.7 Blood hematocrit (volume fraction) 31 % 40-54 Automated erythrocyte mean corpuscular volume 97 [ foz_us] 80-99 Automated erythrocyte mean corpuscular h emoglobin (mass per erythrocyte) 32 pg 25-34 Automated erythrocyte mean corpuscular h emoglobin concentration measurement (mass/volume) 33 g/dL 32-36 Automated erythrocyte distribution width ratio 13. 3 % 10.0- 14.5 Automated blood platelet count (count/volume) 123 10*3/uL 130-400 Automated blood platelet mean volume measurement 9.3 [foz_us] 7.4-10.4 Automated blood neutrophils/100 leukocytes 92 % 42-75 Automated blood lymphocytes/100 leukocytes 3 % 12-44 Blood monocytes/100 leukocytes 5 % 0-12 Automated blood eosinophils/100 leukocytes 0 % 0-10 Automated blood basophils/100 leukocytes 0 % 0-10 Blood neutrophils automated count (number/volume) 9.9 10*3 1.8-7.8 Blood lymphocytes automated count (number/volume) 0.4 10*3 1.0-4.0 Blood monocytes automated count (number/volume) 0. 5 10*3 0.0-1.0 Automated eosinophil count 0.0 10*3/uL 0 .0-0.3 Automated blood basophil count (count/volume) 0.0 10*3/uL 0.0-0.1 Comprehensive metabolic panel - 05/09/17 05:23 Serum or plasma sodium measurement (moles/volume) 141 mmol/L 135-145 Serum or plasma potassium measurement (moles/volume) 4.2 mmol/L 3.6-5.0 Serum or plasma chloride measurement (moles/volume) 112 mmol/L 98-107 Carbon dioxide 21 mmol/L 21-32 Serum or plasma anion gap determination (moles/volume) 8 mmol/L 5-14 Serum or plasma urea nitrogen measurement (mass/volume ) 22 mg/dL 7-18 Serum or plasma creatinine measurement (mass/volume) 2.02 mg/dL 0.60-1.30 Serum or plasma urea nitrogen/creatinine mass ratio 11 NRG Serum or plasma creatinine measurement w ith calculation of estimated glomerular filtration rate 32 NRG Serum or plasma glucose measurement (mass/volume) 106 mg/dL 70-105 Serum or plasma calcium measurement (mass/volume) 7.8 mg/dL 8.5-10.1 Serum or plasma total bilirubin measurement (mass/volu me) 0.5 mg/dL 0.1-1.0 Serum or plasma alkaline phosphatase rossana surement (enzymatic activity/volume) 58 U/L 40-136 Serum or plasma aspartate aminotransfera se measurement (enzymatic activity/volume) 39 U/L 5-34 Serum or plasma alanine aminotransferase measurement (enzymatic activity/volume) 14 U/L 0-55 Serum or plasma protein measurement (mass/volume) 5.8 g/dL 6.4-8.2 Serum or plasma albumin measurement (mass/volume) 2.8 g/dL 3.2-4.5 Vancomycin trough - 05/09/17 10:59 Vancomycin trough 10.8 ug/mL 10.0-20.0 Complete blood count (CBC) with automate d white blood cell (WBC) differential - 05/10/17 06:13 Blood leukocytes automated count (number/volume) 8.3 10*3/uL 4.3-11.0 Blood erythrocytes automated count (number/volume) 3.10 10*6/uL 4.35-5.85 Venous blood hemoglobin measurement (mass/volume) 9.7 g/dL 13.3-17.7 Blood hematocrit (volume fraction) 30 % 40-54 Automated erythrocyte mean corpuscular volume 98 [ foz_us] 80-99 Automated erythrocyte mean corpuscular h emoglobin (mass per erythrocyte) 31 pg 25-34 Automated erythrocyte mean corpuscular h emoglobin concentration measurement (mass/volume) 32 g/dL 32-36 Automated erythrocyte distribution width ratio 13. 8 % 10.0- 14.5 Automated blood platelet count (count/volume) 107 10*3/uL 130-400 Automated blood platelet mean volume measurement 9.7 [foz_us] 7.4-10.4 Automated blood neutrophils/100 leukocytes 87 % 42-75 Automated blood lymphocytes/100 leukocytes 7 % 12-44 Blood monocytes/100 leukocytes 5 % 0-12 Automated blood eosinophils/100 leukocytes 1 % 0-10 Automated blood basophils/100 leukocytes 0 % 0-10 Blood neutrophils automated count (number/volume) 7.2 10*3 1.8-7.8 Blood lymphocytes automated count (number/volume) 0.6 10*3 1.0-4.0 Blood monocytes automated count (number/volume) 0. 4 10*3 0.0-1.0 Automated eosinophil count 0.1 10*3/uL 0 .0-0.3 Automated blood basophil count (count/volume) 0.0 10*3/uL 0.0-0.1 Whole blood basic metabolic panel - 10/20 06:13 Serum or plasma sodium measurement (moles/volume) 144 mmol/L 135-145 Serum or plasma potassium measurement (moles/volume) 4.2 mmol/L 3.6-5.0 Serum or plasma chloride measurement (moles/volume) 114 mmol/L 98-107 Carbon dioxide 23 mmol/L 21-32 Serum or plasma anion gap determination (moles/volume) 7 mmol/L 5-14 Serum or plasma urea nitrogen measurement (mass/volume ) 24 mg/dL 7-18 Serum or plasma creatinine measurement (mass/volume) 1.86 mg/dL 0.60-1.30 Serum or plasma urea nitrogen/creatinine mass ratio 13 NRG Serum or plasma creatinine measurement w ith calculation of estimated glomerular filtration rate 35 NRG Serum or plasma glucose measurement (mass/volume) 102 mg/dL 70-105 Serum or plasma calcium measurement (mass/volume) 7.9 mg/dL 8.5-10.1 Complete blood count (CBC) with automate d white blood cell (WBC) differential - 05/11/17 05:30 Blood leukocytes automated count (number/volume) 6.8 10*3/uL 4.3-11.0 Blood erythrocytes automated count (number/volume) 3.16 10*6/uL 4.35-5.85 Venous blood hemoglobin measurement (mass/volume) 9.9 g/dL 13.3-17.7 Blood hematocrit (volume fraction) 31 % 40-54 Automated erythrocyte mean corpuscular volume 98 [ foz_us] 80-99 Automated erythrocyte mean corpuscular h emoglobin (mass per erythrocyte) 31 pg 25-34 Automated erythrocyte mean corpuscular h emoglobin concentration measurement (mass/volume) 32 g/dL 32-36 Automated erythrocyte distribution width ratio 14. 0 % 10.0- 14.5 Automated blood platelet count (count/volume) 101 10*3/uL 130-400 Automated blood platelet mean volume measurement 9.7 [foz_us] 7.4-10.4 Automated blood neutrophils/100 leukocytes 79 % 42-75 Automated blood lymphocytes/100 leukocytes 12 % 12-44 Blood monocytes/100 leukocytes 6 % 0-12 Automated blood eosinophils/100 leukocytes 2 % 0-10 Automated blood basophils/100 leukocytes 0 % 0-10 Blood neutrophils automated count (number/volume) 5.3 10*3 1.8-7.8 Blood lymphocytes automated count (number/volume) 0.8 10*3 1.0-4.0 Blood monocytes automated count (number/volume) 0. 4 10*3 0.0-1.0 Automated eosinophil count 0.2 10*3/uL 0 .0-0.3 Automated blood basophil count (count/volume) 0.0 10*3/uL 0.0-0.1 Whole blood basic metabolic panel - 11/20 05:30 Serum or plasma sodium measurement (moles/volume) 145 mmol/L 135-145 Serum or plasma potassium measurement (moles/volume) 4.0 mmol/L 3.6-5.0 Serum or plasma chloride measurement (moles/volume) 117 mmol/L 98-107 Carbon dioxide 22 mmol/L 21-32 Serum or plasma anion gap determination (moles/volume) 6 mmol/L 5-14 Serum or plasma urea nitrogen measurement (mass/volume ) 15 mg/dL 7-18 Serum or plasma creatinine measurement (mass/volume) 1.04 mg/dL 0.60-1.30 Serum or plasma urea nitrogen/creatinine mass ratio 14 NRG Serum or plasma creatinine measurement w ith calculation of estimated glomerular filtration rate > NRG Serum or plasma glucose measurement (mass/volume) 86 mg/dL 70-105 Serum or plasma calcium measurement (mass/volume) 7.5 mg/dL 8.5-10.1 Bacterial blood culture - 05/11/17 10:00 Bacterial blood culture NG NRG Bacterial blood culture - 05/11/17 10:00 Bacterial blood culture NG NRG Vancomycin trough - 05/11/17 10:58 Vancomycin trough 9.6 ug/mL 10.0-20.0 Complete blood count (CBC) with automate d white blood cell (WBC) differential - 05/12/17 05:22 Blood leukocytes automated count (number/volume) 6.9 10*3/uL 4.3-11.0 Blood erythrocytes automated count (number/volume) 3.28 10*6/uL 4.35-5.85 Venous blood hemoglobin measurement (mass/volume) 10.1 g/dL 13.3-17.7 Blood hematocrit (volume fraction) 32 % 40-54 Automated erythrocyte mean corpuscular volume 97 [ foz_us] 80-99 Automated erythrocyte mean corpuscular h emoglobin (mass per erythrocyte) 31 pg 25-34 Automated erythrocyte mean corpuscular h emoglobin concentration measurement (mass/volume) 32 g/dL 32-36 Automated erythrocyte distribution width ratio 14. 2 % 10.0- 14.5 Automated blood platelet count (count/volume) 117 10*3/uL 130-400 Automated blood platelet mean volume measurement 10.1 [foz_us] 7.4-10.4 Automated blood neutrophils/100 leukocytes 82 % 42-75 Automated blood lymphocytes/100 leukocytes 9 % 12-44 Blood monocytes/100 leukocytes 8 % 0-12 Automated blood eosinophils/100 leukocytes 1 % 0-10 Automated blood basophils/100 leukocytes 0 % 0-10 Blood neutrophils automated count (number/volume) 5.7 10*3 1.8-7.8 Blood lymphocytes automated count (number/volume) 0.6 10*3 1.0-4.0 Blood monocytes automated count (number/volume) 0. 5 10*3 0.0-1.0 Automated eosinophil count 0.1 10*3/uL 0 .0-0.3 Automated blood basophil count (count/volume) 0.0 10*3/uL 0.0-0.1 Whole blood basic metabolic panel - 12/20 05:22 Serum or plasma sodium measurement (moles/volume) 145 mmol/L 135-145 Serum or plasma potassium measurement (moles/volume) 3.8 mmol/L 3.6-5.0 Serum or plasma chloride measurement (moles/volume) 118 mmol/L 98-107 Carbon dioxide 16 mmol/L 21-32 Serum or plasma anion gap determination (moles/volume) 11 mmol/L 5-14 Serum or plasma urea nitrogen measurement (mass/volume ) 14 mg/dL 7-18 Serum or plasma creatinine measurement (mass/volume) 1.01 mg/dL 0.60-1.30 Serum or plasma urea nitrogen/creatinine mass ratio 14 NRG Serum or plasma creatinine measurement w ith calculation of estimated glomerular filtration rate > NRG Serum or plasma glucose measurement (mass/volume) 74 mg/dL 70-105 Serum or plasma calcium measurement (mass/volume) 7.9 mg/dL 8.5-10.1 Complete blood count (CBC) with automate d white blood cell (WBC) differential - 05/13/17 05:34 Blood leukocytes automated count (number/volume) 7.4 10*3/uL 4.3-11.0 Blood erythrocytes automated count (number/volume) 3.23 10*6/uL 4.35-5.85 Venous blood hemoglobin measurement (mass/volume) 10.1 g/dL 13.3-17.7 Blood hematocrit (volume fraction) 31 % 40-54 Automated erythrocyte mean corpuscular volume 96 [ foz_us] 80-99 Automated erythrocyte mean corpuscular h emoglobin (mass per erythrocyte) 31 pg 25-34 Automated erythrocyte mean corpuscular h emoglobin concentration measurement (mass/volume) 33 g/dL 32-36 Automated erythrocyte distribution width ratio 14. 5 % 10.0- 14.5 Automated blood platelet count (count/volume) 120 10*3/uL 130-400 Automated blood platelet mean volume measurement 9.6 [foz_us] 7.4-10.4 Automated blood neutrophils/100 leukocytes 77 % 42-75 Automated blood lymphocytes/100 leukocytes 13 % 12-44 Blood monocytes/100 leukocytes 8 % 0-12 Automated blood eosinophils/100 leukocytes 2 % 0-10 Automated blood basophils/100 leukocytes 0 % 0-10 Blood neutrophils automated count (number/volume) 5.7 10*3 1.8-7.8 Blood lymphocytes automated count (number/volume) 1.0 10*3 1.0-4.0 Blood monocytes automated count (number/volume) 0. 6 10*3 0.0-1.0 Automated eosinophil count 0.1 10*3/uL 0 .0-0.3 Automated blood basophil count (count/volume) 0.0 10*3/uL 0.0-0.1 Whole blood basic metabolic panel - 01/20 05:34 Serum or plasma sodium measurement (moles/volume) 148 mmol/L 135-145 Serum or plasma potassium measurement (moles/volume) 3.9 mmol/L 3.6-5.0 Serum or plasma chloride measurement (moles/volume) 121 mmol/L 98-107 Carbon dioxide 16 mmol/L 21-32 Serum or plasma anion gap determination (moles/volume) 11 mmol/L 5-14 Serum or plasma urea nitrogen measurement (mass/volume ) 17 mg/dL 7-18 Serum or plasma creatinine measurement (mass/volume) 1.24 mg/dL 0.60-1.30 Serum or plasma urea nitrogen/creatinine mass ratio 14 NRG Serum or plasma creatinine measurement w ith calculation of estimated glomerular filtration rate 56 NRG Serum or plasma glucose measurement (mass/volume) 96 mg/dL 70-105 Serum or plasma calcium measurement (mass/volume) 7.6 mg/dL 8.5-10.1 Lipase - 03/05/19 18:40 Lipase 18 U/L 8-78 Complete blood count (CBC) with automate d white blood cell (WBC) differential - 03/05/19 18:45 Blood leukocytes automated count (number/volume) 15.9 10*3/uL 4.3-11.0 Blood erythrocytes automated count (number/volume) 4.47 10*6/uL 4.35-5.85 Venous blood hemoglobin measurement (mass/volume) 12.9 g/dL 13.3-17.7 Blood hematocrit (volume fraction) 40 % 40-54 Automated erythrocyte mean corpuscular volume 90 [ foz_us] 80-99 Automated erythrocyte mean corpuscular h emoglobin (mass per erythrocyte) 29 pg 25-34 Automated erythrocyte mean corpuscular h emoglobin concentration measurement (mass/volume) 32 g/dL 32-36 Automated erythrocyte distribution width ratio 14. 2 % 10.0- 14.5 Automated blood platelet count (count/volume) 148 10*3/uL 130-400 Automated blood platelet mean volume measurement 9.9 [foz_us] 7.4-10.4 Automated blood neutrophils/100 leukocytes 88 % 42-75 Automated blood lymphocytes/100 leukocytes 6 % 12-44 Blood monocytes/100 leukocytes 6 % 0-12 Automated blood eosinophils/100 leukocytes 0 % 0-10 Automated blood basophils/100 leukocytes 0 % 0-10 Blood neutrophils automated count (number/volume) 14.0 10*3 1.8-7.8 Blood lymphocytes automated count (number/volume) 0.9 10*3 1.0-4.0 Blood monocytes automated count (number/volume) 1. 0 10*3 0.0-1.0 Automated eosinophil count 0.0 10*3/uL 0 .0-0.3 Automated blood basophil count (count/volume) 0.0 10*3/uL 0.0-0.1 PT panel in platelet poor plasma by coag ulation assay - 03/05/19 18:45 Prothrombin time (PT) in platelet poor plasma by coagu lation assay 14.7 s 12.2-14.7 INR in platelet poor plasma or blood by coagulation as say 1.1 0.8-1.4 Activated partial thromboplastin time (a PTT) in platelet poor plasma bycoagulation assay - 03/05/19 18:45 Activated partial thromboplastin time (a PTT) in platelet poor plasma bycoagulation assay 29 s 24-35 Blood lactic acid measurement (moles/vol ume) - 03/05/19 18:45 Blood lactic acid measurement (moles/volume) 2.35 mmol/L 0.50-2.00 Comprehensive metabolic panel - 03/05/19 18:45 Serum or plasma sodium measurement (moles/volume) 141 mmol/L 135-145 Serum or plasma potassium measurement (moles/volume) 4.6 mmol/L 3.6-5.0 Serum or plasma chloride measurement (moles/volume) 106 mmol/L 98-107 Carbon dioxide 25 mmol/L 21-32 Serum or plasma anion gap determination (moles/volume) 10 mmol/L 5-14 Serum or plasma urea nitrogen measurement (mass/volume ) 15 mg/dL 7-18 Serum or plasma creatinine measurement (mass/volume) 1.14 mg/dL 0.60-1.30 Serum or plasma urea nitrogen/creatinine mass ratio 13 NRG Serum or plasma creatinine measurement w ith calculation of estimated glomerular filtration rate > NRG Serum or plasma glucose measurement (mass/volume) 110 mg/dL 70-105 Serum or plasma calcium measurement (mass/volume) 9.0 mg/dL 8.5-10.1 Serum or plasma total bilirubin measurement (mass/volu me) 0.9 mg/dL 0.1-1.0 Serum or plasma alkaline phosphatase rossana surement (enzymatic activity/volume) 107 U/L 40-136 Serum or plasma aspartate aminotransfera se measurement (enzymatic activity/volume) 18 U/L 5-34 Serum or plasma alanine aminotransferase measurement (enzymatic activity/volume) 13 U/L 0-55 Serum or plasma protein measurement (mass/volume) 7.8 g/dL 6.4-8.2 Serum or plasma albumin measurement (mass/volume) 3.8 g/dL 3.2-4.5 CALCIUM CORRECTED 9.2 mg/dL 8.5-10.1 Serum or plasma troponin i.cardiac measu rement (mass/volume) - 03/05/19 18:45 Serum or plasma troponin i.cardiac measurement (mass/v olume) 0.183 ng/mL <0.028 Manual absolute plasma cell count - 02/06 18:45 Blood monocytes/100 leukocytes 3 % NRG Manual blood segmented neutrophils/100 leukocytes 87 % NRG Manual blood lymphocytes/100 leukocytes 9 % NRG Manual eosinophils/100 leukocytes in nose 1 % NRG Blood erythrocyte morphology finding identification NORMAL NRG Bacterial blood culture - 03/05/19 18:45 Bacterial blood culture NG NRG Influenza virus A and B antigen detectio n - 03/05/19 18:54 FLU RESULT NEGATIVE FOR INFLUENZA A AND B ANTIGENS BY IA NRG Arterial blood gas measurement - 9 19:00 Blood pCO2 39 mm[Hg] 35-45 Blood pO2 414 mm[Hg] 79-93 Arterial blood bicarbonate measurement (moles/volume) 22 mmol/L 23-27 Arterial blood base excess by calculation -2.3 mmo l/L -2.5-2.5 Arterial blood oxygen saturation measurement 100 % 94-100 * Inhaled oxygen flow rate 3 NRG Arterial blood pH measurement with patient temperature correction 7.38 7.37-7.43 Arterial blood carbon dioxide, total measurement (mole s/volume) 23.0 mmol/L 21.0-31.0 Body site LT RADIAL NRG Assessment of wrist artery patency prior to arterial p uncture YES-POS NRG Setting of ventilation mode NO NR G Measurement of body temperature 37.7 NRG Bacterial blood culture - 03/05/19 19:14 Bacterial blood culture NG NRG Complete urinalysis with reflex to cultu re - 03/05/19 19:53 Urine color determination YELLOW NRG Urine clarity determination VERY CLOUDY NRG Urine pH measurement by test strip 5 5-9 Specific gravity of urine by test strip 1.025 1.016-1.022 Urine protein assay by test strip, semi-quantitative 3+ NEGATIVE Urine glucose detection by automated test strip NE GATIVE NEGATIVE Erythrocytes detection in urine sediment by light micr oscopy 5+ NEGATIVE Urine ketones detection by automated test strip NE GATIVE NEGATIVE Urine nitrite detection by test strip POSITIVE NEGATIVE Urine total bilirubin detection by test strip NEGA TIVE NEGATIVE Urine urobilinogen measurement by automated test strip (mass/volume) 1 mg/dL NORMAL Urine leukocyte esterase detection by dipstick 3+ NEGATIVE Automated urine sediment erythrocyte cou nt by microscopy (number/high power field) [HPF] NRG Automated urine sediment leukocyte count by microscopy (number/high power field) > [HPF] NRG Bacteria detection in urine sediment by light microsco py MODERATE NRG Squamous epithelial cells detection in u rine sediment by light microscopy 5-10 NRG Crystals detection in urine sediment by light microsco py PRESENT NRG Casts detection in urine sediment by light microscopy NONE NRG Mucus detection in urine sediment by light microscopy NEGATIVE NRG Complete urinalysis with reflex to culture CULTURE PENDING NRG Amorphous sediment detection in urine sediment by ligh t microscopy FEW LADONNA URATES NRG Bacterial urine culture - 03/05/19 19:53 Bacterial urine culture [id number] NRG COLONY COUNT >100,000/ML NRG FTX;REPORTABLE SUSCEPTIBILITY REPORTED 10-3, 1400 NR FREE TEXT ENTRY 2 METHICILLIN SENSITIVE STAPH [place]IEGO NRG Dirithromycin susceptibility test by dis k diffusion - 03/05/19 19:53 Oxacillin susceptibility test by minimum inhibitory co ncentration 0.5 NRG Trimethoprim/sulfamethoxazole susceptibi lity test by minimum inhibitoryconcentration <= NRG Vancomycin susceptibility test by minimum inhibitory c oncentration <= NRG Levofloxacin susceptibility test by minimum inhibitory concentration > NRG Rifampin susceptibility test by minimum inhibitory con centration <= NRG Cefazolin susceptibility test by minimum inhibitory co ncentration <= NRG Nitrofurantoin susceptibility test by mi nimum inhibitory concentration <= NRG Serum or plasma lactate measurement (mol es/volume) - 03/05/19 21:45 Serum or plasma lactate measurement (moles/volume) 5.21 mmol/L 0.50-2.00 Complete blood count (CBC) with automate d white blood cell (WBC) differential - 08/02/19 07:30 Blood leukocytes automated count (number/volume) 11.1 10*3/uL 4.3-11.0 Blood erythrocytes automated count (number/volume) 5.00 10*6/uL 4.35-5.85 Venous blood hemoglobin measurement (mass/volume) 15.1 g/dL 13.3-17.7 Blood hematocrit (volume fraction) 46 % 40-54 Automated erythrocyte mean corpuscular volume 93 [ foz_us] 80-99 Automated erythrocyte mean corpuscular h emoglobin (mass per erythrocyte) 30 pg 25-34 Automated erythrocyte mean corpuscular h emoglobin concentration measurement (mass/volume) 33 g/dL 32-36 Automated erythrocyte distribution width ratio 14. 5 % 10.0- 14.5 Automated blood platelet count (count/volume) 139 10*3/uL 130-400 Automated blood platelet mean volume measurement 9.8 [foz_us] 7.4-10.4 Automated blood neutrophils/100 leukocytes 92 % 42-75 Automated blood lymphocytes/100 leukocytes 2 % 12-44 Blood monocytes/100 leukocytes 6 % 0-12 Automated blood eosinophils/100 leukocytes 0 % 0-10 Automated blood basophils/100 leukocytes 0 % 0-10 Blood neutrophils automated count (number/volume) 10.2 10*3 1.8-7.8 Blood lymphocytes automated count (number/volume) 0.2 10*3 1.0-4.0 Blood monocytes automated count (number/volume) 0. 6 10*3 0.0-1.0 Automated eosinophil count 0.0 10*3/uL 0 .0-0.3 Automated blood basophil count (count/volume) 0.0 10*3/uL 0.0-0.1 PT panel in platelet poor plasma by coag ulation assay - 08/02/19 07:30 Prothrombin time (PT) in platelet poor plasma by coagu lation assay 14.7 s 12.2-14.7 INR in platelet poor plasma or blood by coagulation as say 1.1 0.8-1.4 Activated partial thromboplastin time (a PTT) in platelet poor plasma bycoagulation assay - 08/02/19 07:30 Activated partial thromboplastin time (a PTT) in platelet poor plasma bycoagulation assay 27 s 24-35 Influenza virus A and B antigen detectio n - 08/02/19 07:30 FLU RESULT NEGATIVE FOR INFLUENZA A AND B ANTIGENS BY IA NRG Blood lactic acid measurement (moles/vol ume) - 08/02/19 07:30 Blood lactic acid measurement (moles/volume) 8.02 mmol/L 0.50-2.00 Comprehensive metabolic panel - 08/02/19 07:30 Serum or plasma sodium measurement (moles/volume) 141 mmol/L 135-145 Serum or plasma potassium measurement (moles/volume) 4.3 mmol/L 3.6-5.0 Serum or plasma chloride measurement (moles/volume) 103 mmol/L 98-107 Carbon dioxide 23 mmol/L 21-32 Serum or plasma anion gap determination (moles/volume) 15 mmol/L 5-14 Serum or plasma urea nitrogen measurement (mass/volume ) 21 mg/dL 7-18 Serum or plasma creatinine measurement (mass/volume) 1.68 mg/dL 0.60-1.30 Serum or plasma urea nitrogen/creatinine mass ratio 13 NRG Serum or plasma creatinine measurement w ith calculation of estimated glomerular filtration rate 39 NRG Serum or plasma glucose measurement (mass/volume) 177 mg/dL 70-105 Serum or plasma calcium measurement (mass/volume) 9.3 mg/dL 8.5-10.1 Serum or plasma total bilirubin measurement (mass/volu me) 0.9 mg/dL 0.1-1.0 Serum or plasma alkaline phosphatase rossana surement (enzymatic activity/volume) 94 U/L 40-136 Serum or plasma aspartate aminotransfera se measurement (enzymatic activity/volume) 13 U/L 5-34 Serum or plasma alanine aminotransferase measurement (enzymatic activity/volume) 8 U/L 0-55 Serum or plasma protein measurement (mass/volume) 7.5 g/dL 6.4-8.2 Serum or plasma albumin measurement (mass/volume) 4.2 g/dL 3.2-4.5 CALCIUM CORRECTED 9.1 mg/dL 8.5-10.1 Magnesium - 08/02/19 07:30 Magnesium 1.8 mg/dL 1.6-2.4 Serum or plasma troponin i.cardiac measu rement (mass/volume) - 08/02/19 07:30 Serum or plasma troponin i.cardiac measurement (mass/v olume) 0.037 ng/mL <0.028 Serum or plasma amylase measurement (enz ymatic activity/volume) - 08/02/19 07:30 Serum or plasma amylase measurement (enzymatic activit y/volume) 136 U/L 25-125 Lipase - 08/02/19 07:30 Lipase 12 U/L 8-78 Manual absolute plasma cell count - 07/08 12/23 07:30 Blood monocytes/100 leukocytes 7 % NRG Manual blood segmented neutrophils/100 leukocytes 73 % NRG Blood band neutrophils/100 leukocytes 17 % NRG Manual blood lymphocytes/100 leukocytes 3 % NRG Manual eosinophils/100 leukocytes in nose 0 % NRG Manual blood basophils/100 leukocytes 0 % NRG Blood erythrocyte morphology finding identification NORMAL NRG Serum or plasma lithium measurement (mol es/volume) - 08/02/19 07:30 BNP PT 584.3 pg/mL <100.0 Bacterial blood culture - 08/02/19 07:30 Bacterial blood culture NG NRG Capillary blood glucose measurement by g lucometer (mass/volume) - 08/02/19 07:33 Capillary blood glucose measurement by glucometer (mas s/volume) 163 mg/dL 70-110 Complete urinalysis with reflex to cultu re - 08/02/19 07:50 Urine color determination YELLOW NRG Urine clarity determination CLOUDY NR G Urine pH measurement by test strip 6.5 5-9 Specific gravity of urine by test strip 1.025 1.016-1.022 Urine protein assay by test strip, semi-quantitative 1+ NEGATIVE Urine glucose detection by automated test strip NE GATIVE NEGATIVE Erythrocytes detection in urine sediment by light micr oscopy 2+ NEGATIVE Urine ketones detection by automated test strip NE GATIVE NEGATIVE Urine nitrite detection by test strip POSITIVE NEGATIVE Urine total bilirubin detection by test strip NEGA TIVE NEGATIVE Urine urobilinogen measurement by automated test strip (mass/volume) 0.2 mg/dL < = 1.0 Urine leukocyte esterase detection by dipstick 3+ NEGATIVE Automated urine sediment erythrocyte cou nt by microscopy (number/high power field) [HPF] NRG Automated urine sediment leukocyte count by microscopy (number/high power field) TNTC NRG Bacteria detection in urine sediment by light microsco py MODERATE NRG Squamous epithelial cells detection in u rine sediment by light microscopy NONE NRG Crystals detection in urine sediment by light microsco py NONE NRG Casts detection in urine sediment by light microscopy NONE NRG Mucus detection in urine sediment by light microscopy NEGATIVE NRG Complete urinalysis with reflex to culture CULTURE PENDING NRG Bacterial urine culture - 08/02/19 07:50 Bacterial urine culture [id number] NRG COLONY COUNT >100,000/ML NRG FTX;REPORTABLE METHICILLIN-SENSITIVE NR G FREE TEXT ENTRY 2 PRELIM RAPID ID BY VCP 08-03-19, [id number] NRG FREE TEXT ENTRY 3 RML CONFIRMED ID 08/03/19 17:05 NRG Dirithromycin susceptibility test by dis k diffusion - 08/02/19 07:50 Oxacillin susceptibility test by minimum inhibitory co ncentration 0.5 NRG Trimethoprim/sulfamethoxazole susceptibi lity test by minimum inhibitoryconcentration <= NRG Vancomycin susceptibility test by minimum inhibitory c oncentration 1 NRG Levofloxacin susceptibility test by minimum inhibitory concentration > NRG Rifampin susceptibility test by minimum inhibitory con centration <= NRG Cefazolin susceptibility test by minimum inhibitory co ncentration <= NRG Nitrofurantoin susceptibility test by mi nimum inhibitory concentration <= NRG Bacterial blood culture - 08/02/19 08:06 Bacterial blood culture NG NRG Serum or plasma lactate measurement (mol es/volume) - 08/02/19 09:50 Serum or plasma lactate measurement (moles/volume) 4.79 mmol/L 0.50-2.00 Methicillin resistant Staphylococcus aur eus (MRSA) screening culture - 08/02/19 10:20 Methicillin resistant Staphylococcus aureus (MRSA) scr eening culture NEG NRG Serum or plasma lactate measurement (mol es/volume) - 08/02/19 12:02 Serum or plasma lactate measurement (moles/volume) 3.76 mmol/L 0.50-2.00 Serum or plasma lactate measurement (mol es/volume) - 08/02/19 14:45 Serum or plasma lactate measurement (moles/volume) 2.82 mmol/L 0.50-2.00 Serum or plasma lactate measurement (mol es/volume) - 08/02/19 16:33 Serum or plasma lactate measurement (moles/volume) 2.00 mmol/L 0.50-2.00 Complete blood count (CBC) with automate d white blood cell (WBC) differential - 08/03/19 03:02 Blood leukocytes automated count (number/volume) 9.4 10*3/uL 4.3-11.0 Blood erythrocytes automated count (number/volume) 3.94 10*6/uL 4.35-5.85 Venous blood hemoglobin measurement (mass/volume) 12.2 g/dL 13.3-17.7 Blood hematocrit (volume fraction) 37 % 40-54 Automated erythrocyte mean corpuscular volume 93 [ foz_us] 80-99 Automated erythrocyte mean corpuscular h emoglobin (mass per erythrocyte) 31 pg 25-34 Automated erythrocyte mean corpuscular h emoglobin concentration measurement (mass/volume) 33 g/dL 32-36 Automated erythrocyte distribution width ratio 14. 6 % 10.0- 14.5 Automated blood platelet count (count/volume) 97 1 0*3/uL 130-400 Automated blood platelet mean volume measurement 9.4 [foz_us] 7.4-10.4 Automated blood neutrophils/100 leukocytes 91 % 42-75 Automated blood lymphocytes/100 leukocytes 6 % 12-44 Blood monocytes/100 leukocytes 3 % 0-12 Automated blood eosinophils/100 leukocytes 0 % 0-10 Automated blood basophils/100 leukocytes 0 % 0-10 Blood neutrophils automated count (number/volume) 8.5 10*3 1.8-7.8 Blood lymphocytes automated count (number/volume) 0.6 10*3 1.0-4.0 Blood monocytes automated count (number/volume) 0. 3 10*3 0.0-1.0 Automated eosinophil count 0.0 10*3/uL 0 .0-0.3 Automated blood basophil count (count/volume) 0.0 10*3/uL 0.0-0.1 Whole blood basic metabolic panel - 07/08 01/23 03:02 Serum or plasma sodium measurement (moles/volume) 139 mmol/L 135-145 Serum or plasma potassium measurement (moles/volume) 4.1 mmol/L 3.6-5.0 Serum or plasma chloride measurement (moles/volume) 107 mmol/L 98-107 Carbon dioxide 21 mmol/L 21-32 Serum or plasma anion gap determination (moles/volume) 11 mmol/L 5-14 Serum or plasma urea nitrogen measurement (mass/volume ) 16 mg/dL 7-18 Serum or plasma creatinine measurement (mass/volume) 1.08 mg/dL 0.60-1.30 Serum or plasma urea nitrogen/creatinine mass ratio 15 NRG Serum or plasma creatinine measurement w ith calculation of estimated glomerular filtration rate > NRG Serum or plasma glucose measurement (mass/volume) 138 mg/dL 70-105 Serum or plasma calcium measurement (mass/volume) 7.9 mg/dL 8.5-10.1 Serum or plasma phosphate measurement (m ass/volume) - 08/03/19 03:02 Serum or plasma phosphate measurement (mass/volume) 2.3 mg/dL 2.3-4.7 Magnesium - 08/03/19 03:02 Magnesium 1.4 mg/dL 1.6-2.4 Serum or plasma lithium measurement (mol es/volume) - 08/03/19 03:07 BNP PT 920.9 pg/mL <100.0 Complete blood count (CBC) with automate d white blood cell (WBC) differential - 08/04/19 03:35 Blood leukocytes automated count (number/volume) 10.3 10*3/uL 4.3-11.0 Blood erythrocytes automated count (number/volume) 3.78 10*6/uL 4.35-5.85 Venous blood hemoglobin measurement (mass/volume) 11.5 g/dL 13.3-17.7 Blood hematocrit (volume fraction) 35 % 40-54 Automated erythrocyte mean corpuscular volume 92 [ foz_us] 80-99 Automated erythrocyte mean corpuscular h emoglobin (mass per erythrocyte) 30 pg 25-34 Automated erythrocyte mean corpuscular h emoglobin concentration measurement (mass/volume) 33 g/dL 32-36 Automated erythrocyte distribution width ratio 14. 1 % 10.0- 14.5 Automated blood platelet count (count/volume) 98 1 0*3/uL 130-400 Automated blood platelet mean volume measurement 9.6 [foz_us] 7.4-10.4 Automated blood neutrophils/100 leukocytes 94 % 42-75 Automated blood lymphocytes/100 leukocytes 3 % 12-44 Blood monocytes/100 leukocytes 3 % 0-12 Automated blood eosinophils/100 leukocytes 0 % 0-10 Automated blood basophils/100 leukocytes 0 % 0-10 Blood neutrophils automated count (number/volume) 9.7 10*3 1.8-7.8 Blood lymphocytes automated count (number/volume) 0.3 10*3 1.0-4.0 Blood monocytes automated count (number/volume) 0. 3 10*3 0.0-1.0 Automated eosinophil count 0.0 10*3/uL 0 .0-0.3 Automated blood basophil count (count/volume) 0.0 10*3/uL 0.0-0.1 Whole blood basic metabolic panel - 07/08 02/23 03:35 Serum or plasma sodium measurement (moles/volume) 138 mmol/L 135-145 Serum or plasma potassium measurement (moles/volume) 3.0 mmol/L 3.6-5.0 Serum or plasma chloride measurement (moles/volume) 105 mmol/L 98-107 Carbon dioxide 25 mmol/L 21-32 Serum or plasma anion gap determination (moles/volume) 8 mmol/L 5-14 Serum or plasma urea nitrogen measurement (mass/volume ) 20 mg/dL 7-18 Serum or plasma creatinine measurement (mass/volume) 0.97 mg/dL 0.60-1.30 Serum or plasma urea nitrogen/creatinine mass ratio 21 NRG Serum or plasma creatinine measurement w ith calculation of estimated glomerular filtration rate > NRG Serum or plasma glucose measurement (mass/volume) 157 mg/dL 70-105 Serum or plasma calcium measurement (mass/volume) 7.7 mg/dL 8.5-10.1 Serum or plasma phosphate measurement (m ass/volume) - 08/04/19 03:35 Serum or plasma phosphate measurement (mass/volume) 1.8 mg/dL 2.3-4.7 Magnesium - 08/04/19 03:35 Magnesium 1.7 mg/dL 1.6-2.4 Vancomycin trough - 08/04/19 10:29 Vancomycin trough 7.3 ug/mL 10.0-20.0 Capillary blood glucose measurement by g lucometer (mass/volume) - 08/04/19 11:42 Capillary blood glucose measurement by glucometer (mas s/volume) 133 mg/dL 70-110 Serum or plasma potassium measurement (m oles/volume) - 08/04/19 12:35 Serum or plasma potassium measurement (moles/volume) 3.4 mmol/L 3.6-5.0 Whole blood basic metabolic panel - 06/25 04:10 Serum or plasma sodium measurement (moles/volume) 137 mmol/L 135-145 Serum or plasma potassium measurement (moles/volume) 3.4 mmol/L 3.6-5.0 Serum or plasma chloride measurement (moles/volume) 105 mmol/L 98-107 Carbon dioxide 24 mmol/L 21-32 Serum or plasma anion gap determination (moles/volume) 8 mmol/L 5-14 Serum or plasma urea nitrogen measurement (mass/volume ) 17 mg/dL 7-18 Serum or plasma creatinine measurement (mass/volume) 0.79 mg/dL 0.60-1.30 Serum or plasma urea nitrogen/creatinine mass ratio 22 NRG Serum or plasma creatinine measurement w ith calculation of estimated glomerular filtration rate > NRG Serum or plasma glucose measurement (mass/volume) 126 mg/dL 70-105 Serum or plasma calcium measurement (mass/volume) 7.6 mg/dL 8.5-10.1 Serum or plasma phosphate measurement (m ass/volume) - 08/05/19 04:10 Serum or plasma phosphate measurement (mass/volume) 1.8 mg/dL 2.3-4.7 Magnesium - 08/05/19 04:10 Magnesium 1.9 mg/dL 1.6-2.4 Complete blood count (CBC) with automate d white blood cell (WBC) differential - 08/05/19 04:10 Blood leukocytes automated count (number/volume) 10.0 10*3/uL 4.3-11.0 Blood erythrocytes automated count (number/volume) 3.64 10*6/uL 4.35-5.85 Venous blood hemoglobin measurement (mass/volume) 11.1 g/dL 13.3-17.7 Blood hematocrit (volume fraction) 34 % 40-54 Automated erythrocyte mean corpuscular volume 92 [ foz_us] 80-99 Automated erythrocyte mean corpuscular h emoglobin (mass per erythrocyte) 30 pg 25-34 Automated erythrocyte mean corpuscular h emoglobin concentration measurement (mass/volume) 33 g/dL 32-36 Automated erythrocyte distribution width ratio 14. 4 % 10.0- 14.5 Automated blood platelet count (count/volume) 104 10*3/uL 130-400 Automated blood platelet mean volume measurement 9.4 [foz_us] 7.4-10.4 Automated blood neutrophils/100 leukocytes 93 % 42-75 Automated blood lymphocytes/100 leukocytes 3 % 12-44 Blood monocytes/100 leukocytes 4 % 0-12 Automated blood eosinophils/100 leukocytes 0 % 0-10 Automated blood basophils/100 leukocytes 0 % 0-10 Blood neutrophils automated count (number/volume) 9.3 10*3 1.8-7.8 Blood lymphocytes automated count (number/volume) 0.3 10*3 1.0-4.0 Blood monocytes automated count (number/volume) 0. 4 10*3 0.0-1.0 Automated eosinophil count 0.0 10*3/uL 0 .0-0.3 Automated blood basophil count (count/volume) 0.0 10*3/uL 0.0-0.1 Complete blood count (CBC) with automate d white blood cell (WBC) differential - 08/06/19 03:20 Blood leukocytes automated count (number/volume) 6.0 10*3/uL 4.3-11.0 Blood erythrocytes automated count (number/volume) 3.51 10*6/uL 4.35-5.85 Venous blood hemoglobin measurement (mass/volume) 10.7 g/dL 13.3-17.7 Blood hematocrit (volume fraction) 32 % 40-54 Automated erythrocyte mean corpuscular volume 92 [ foz_us] 80-99 Automated erythrocyte mean corpuscular h emoglobin (mass per erythrocyte) 31 pg 25-34 Automated erythrocyte mean corpuscular h emoglobin concentration measurement (mass/volume) 33 g/dL 32-36 Automated erythrocyte distribution width ratio 13. 8 % 10.0- 14.5 Automated blood platelet count (count/volume) 95 1 0*3/uL 130-400 Automated blood platelet mean volume measurement 9.5 [foz_us] 7.4-10.4 Automated blood neutrophils/100 leukocytes 90 % 42-75 Automated blood lymphocytes/100 leukocytes 5 % 12-44 Blood monocytes/100 leukocytes 5 % 0-12 Automated blood eosinophils/100 leukocytes 0 % 0-10 Automated blood basophils/100 leukocytes 0 % 0-10 Blood neutrophils automated count (number/volume) 5.4 10*3 1.8-7.8 Blood lymphocytes automated count (number/volume) 0.3 10*3 1.0-4.0 Blood monocytes automated count (number/volume) 0. 3 10*3 0.0-1.0 Automated eosinophil count 0.0 10*3/uL 0 .0-0.3 Automated blood basophil count (count/volume) 0.0 10*3/uL 0.0-0.1 Whole blood basic metabolic panel - 07/26 03:20 Serum or plasma sodium measurement (moles/volume) 139 mmol/L 135-145 Serum or plasma potassium measurement (moles/volume) 3.1 mmol/L 3.6-5.0 Serum or plasma chloride measurement (moles/volume) 104 mmol/L 98-107 Carbon dioxide 27 mmol/L 21-32 Serum or plasma anion gap determination (moles/volume) 8 mmol/L 5-14 Serum or plasma urea nitrogen measurement (mass/volume ) 16 mg/dL 7-18 Serum or plasma creatinine measurement (mass/volume) 0.82 mg/dL 0.60-1.30 Serum or plasma urea nitrogen/creatinine mass ratio 20 NRG Serum or plasma creatinine measurement w ith calculation of estimated glomerular filtration rate > NRG Serum or plasma glucose measurement (mass/volume) 118 mg/dL 70-105 Serum or plasma calcium measurement (mass/volume) 7.2 mg/dL 8.5-10.1 Serum or plasma phosphate measurement (m ass/volume) - 08/06/19 03:20 Serum or plasma phosphate measurement (mass/volume) 1.8 mg/dL 2.3-4.7 Magnesium - 08/06/19 03:20 Magnesium 1.9 mg/dL 1.6-2.4 Manual absolute plasma cell count - 07/26 03:20 Blood monocytes/100 leukocytes 4 % [facility] Manual blood segmented neutrophils/100 leukocytes 91 % NR Manual blood lymphocytes/100 leukocytes 5 % [facility] Blood erythrocyte morphology finding identification [facility] Whole blood basic metabolic panel - 08/23 03:30 Serum or plasma sodium measurement (moles/volume) 140 mmol/L 135-145 Serum or plasma potassium measurement (moles/volume) 3.6 mmol/L 3.6-5.0 Serum or plasma chloride measurement (moles/volume) 107 mmol/L 98-107 Carbon dioxide 26 mmol/L -32 Serum or plasma anion gap determination (moles/volume) 7 mmol/L 5-14 Serum or plasma urea nitrogen measurement (mass/volume ) 19 mg/dL 7-18 Serum or plasma creatinine measurement (mass/volume) 0.85 mg/dL 0.60-1.30 Serum or plasma urea nitrogen/creatinine mass ratio 22 NRG Serum or plasma creatinine measurement w ith calculation of estimated glomerular filtration rate > NRG Serum or plasma glucose measurement (mass/volume) 86 mg/dL 70-105 Serum or plasma calcium measurement (mass/volume) 7.4 mg/dL 8.5-10.1 Serum or plasma phosphate measurement (m ass/volume) - 08/07/19 03:30 Serum or plasma phosphate measurement (mass/volume) 2.6 mg/dL 2.3-4.7 Magnesium - 08/07/19 03:30 Magnesium 1.9 mg/dL 1.6-2.4 Complete blood count (CBC) with automate d white blood cell (WBC) differential - 08/07/19 06:05 Blood leukocytes automated count (number/volume) 8.0 10*3/uL 4.3-11.0 Blood erythrocytes automated count (number/volume) 3.58 10*6/uL 4.35-5.85 Venous blood hemoglobin measurement (mass/volume) 10.9 g/dL 13.3-17.7 Blood hematocrit (volume fraction) 33 % 40-54 Automated erythrocyte mean corpuscular volume 93 [ foz_us] 80-99 Automated erythrocyte mean corpuscular h emoglobin (mass per erythrocyte) 30 pg 25-34 Automated erythrocyte mean corpuscular h emoglobin concentration measurement (mass/volume) 33 g/dL 32-36 Automated erythrocyte distribution width ratio 14. 2 % 10.0- 14.5 Automated blood platelet count (count/volume) 97 1 0*3/uL 130-400 Automated blood platelet mean volume measurement 9.3 [foz_us] 7.4-10.4 Automated blood neutrophils/100 leukocytes 81 % 42-75 Automated blood lymphocytes/100 leukocytes 10 % 12-44 Blood monocytes/100 leukocytes 9 % 0-12 Automated blood eosinophils/100 leukocytes 0 % 0-10 Automated blood basophils/100 leukocytes 0 % 0-10 Blood neutrophils automated count (number/volume) 6.5 10*3 1.8-7.8 Blood lymphocytes automated count (number/volume) 0.8 10*3 1.0-4.0 Blood monocytes automated count (number/volume) 0. 7 10*3 0.0-1.0 Automated eosinophil count 0.0 10*3/uL 0 .0-0.3 Automated blood basophil count (count/volume) 0.0 10*3/uL 0.0-0.1 Blood lactic acid measurement (moles/vol ume) - 01/04/20 13:10 Blood lactic acid measurement (moles/volume) 6.71 mmol/L 0.50-2.00 Complete blood count (CBC) with automate d white blood cell (WBC) differential - 01/04/20 13:15 Blood leukocytes automated count (number/volume) 11.8 10*3/uL 4.3-11.0 Blood erythrocytes automated count (number/volume) 4.59 10*6/uL 4.35-5.85 Venous blood hemoglobin measurement (mass/volume) 13.4 g/dL 13.3-17.7 Blood hematocrit (volume fraction) 41 % 40-54 Automated erythrocyte mean corpuscular volume 88 [ foz_us] 80-99 Automated erythrocyte mean corpuscular h emoglobin (mass per erythrocyte) 29 pg 25-34 Automated erythrocyte mean corpuscular h emoglobin concentration measurement (mass/volume) 33 g/dL 32-36 Automated erythrocyte distribution width ratio 15. 6 % 10.0- 14.5 Automated blood platelet count (count/volume) 143 10*3/uL 130-400 Automated blood platelet mean volume measurement 8.7 [foz_us] 7.4-10.4 Automated blood neutrophils/100 leukocytes 79 % 42-75 Automated blood lymphocytes/100 leukocytes 13 % 12-44 Blood monocytes/100 leukocytes 8 % 0-12 Automated blood eosinophils/100 leukocytes 0 % 0-10 Automated blood basophils/100 leukocytes 0 % 0-10 Blood neutrophils automated count (number/volume) 9.3 10*3 1.8-7.8 Blood lymphocytes automated count (number/volume) 1.6 10*3 1.0-4.0 Blood monocytes automated count (number/volume) 0. 9 10*3 0.0-1.0 Automated eosinophil count 0.0 10*3/uL 0 .0-0.3 Automated blood basophil count (count/volume) 0.0 10*3/uL 0.0-0.1 Comprehensive metabolic panel - 01/04/20 13:15 Serum or plasma sodium measurement (moles/volume) 141 mmol/L 135-145 Serum or plasma potassium measurement (moles/volume) 4.0 mmol/L 3.6-5.0 Serum or plasma chloride measurement (moles/volume) 105 mmol/L 98-107 Carbon dioxide 22 mmol/L 21-32 Serum or plasma anion gap determination (moles/volume) 14 mmol/L 5-14 Serum or plasma urea nitrogen measurement (mass/volume ) 17 mg/dL 7-18 Serum or plasma creatinine measurement (mass/volume) 1.17 mg/dL 0.60-1.30 Serum or plasma urea nitrogen/creatinine mass ratio 15 NRG Serum or plasma creatinine measurement w ith calculation of estimated glomerular filtration rate 59 NRG Serum or plasma glucose measurement (mass/volume) 108 mg/dL 70-105 Serum or plasma calcium measurement (mass/volume) 8.7 mg/dL 8.5-10.1 Serum or plasma total bilirubin measurement (mass/volu me) 0.5 mg/dL 0.1-1.0 Serum or plasma alkaline phosphatase rossana surement (enzymatic activity/volume) 104 U/L 40-136 Serum or plasma aspartate aminotransfera se measurement (enzymatic activity/volume) 16 U/L 5-34 Serum or plasma alanine aminotransferase measurement (enzymatic activity/volume) 11 U/L 0-55 Serum or plasma protein measurement (mass/volume) 7.1 g/dL 6.4-8.2 Serum or plasma albumin measurement (mass/volume) 4.0 g/dL 3.2-4.5 CALCIUM CORRECTED 8.7 mg/dL 8.5-10.1 PT panel in platelet poor plasma by coag ulation assay - 01/04/20 13:15 Prothrombin time (PT) in platelet poor plasma by coagu lation assay 13.6 s 12.2-14.7 INR in platelet poor plasma or blood by coagulation as say 1.0 0.8-1.4 Activated partial thromboplastin time (a PTT) in platelet poor plasma bycoagulation assay - 01/04/20 13:15 Activated partial thromboplastin time (a PTT) in platelet poor plasma bycoagulation assay 30 s 24-35 Serum or plasma lithium measurement (mol es/volume) - 01/04/20 13:15 BNP PT 268.0 pg/mL <100.0 PROCALCITONIN (PCT) - 01/04/20 13:15 PROCALCITONIN (PCT) 0.03 ng/mL <0.10 Complete urinalysis with reflex to cultu re - 01/04/20 14:00 Urine color determination YELLOW NRG Urine clarity determination SL CLOUDY N RG Urine pH measurement by test strip 6.0 5-9 Specific gravity of urine by test strip 1.020 1.016-1.022 Urine protein assay by test strip, semi-quantitative TRACE NEGATIVE Urine glucose detection by automated test strip NE GATIVE NEGATIVE Erythrocytes detection in urine sediment by light micr oscopy 3+ NEGATIVE Urine ketones detection by automated test strip NE GATIVE NEGATIVE Urine nitrite detection by test strip POSITIVE NEGATIVE Urine total bilirubin detection by test strip NEGA TIVE NEGATIVE Urine urobilinogen measurement by automated test strip (mass/volume) 0.2 mg/dL < = 1.0 Urine leukocyte esterase detection by dipstick 3+ NEGATIVE Automated urine sediment erythrocyte cou nt by microscopy (number/high power field) [HPF] NRG Automated urine sediment leukocyte count by microscopy (number/high power field) > [HPF] NRG Bacteria detection in urine sediment by light microsco py MODERATE NRG Squamous epithelial cells detection in u rine sediment by light microscopy RARE NRG Crystals detection in urine sediment by light microsco py NONE NRG Casts detection in urine sediment by light microscopy NONE NRG Mucus detection in urine sediment by light microscopy NEGATIVE NRG Complete urinalysis with reflex to culture CULTURE PENDING NRG Serum or plasma lactate measurement (mol es/volume) - 01/04/20 15:45 Serum or plasma lactate measurement (moles/volume) 2.80 mmol/L 0.50-2.00 Encounters ACCT No. Visit Date/Time Discharge Status Pt. Type Provider Facility Loc./Unit Complaint [id number] 08/09/2019 13:40:00 08/09/2019 23:59: 59 CLS Outpatient BEE BELL APRN [facility] [id number] 08/02/2019 09:47:00 020 16:15:00 DIS Inpatient STAFFORD DO, JUN V [facility] CSD SEPTIC SHOCK;UTI;PNEUMONIA;N/V;DEHYDRATION [id number] 03/05/2019 18:39:00 019 23:18:00 DIS Emergency DAWNA STEVENSON MD [facility] ER SOB,DIFFICULTY BREATHIN G [id number] 05/08/2017 15:17:00 017 12:30:00 DIS Inpatient STAFFORD DO, JUN V [facility] 4TH N/V [id number] 05/05/2017 18:35:00 017 23:05:00 DIS Emergency DAWNA STEVENSON MD [facility] ER FEVER [id number] 03/27/2017 22:45:00 017 23:59:59 CLS Outpatient FÁTIMA MONTANA MD [facility] CVS UTI [id number] 07/13/2016 09:35:00 017 23:59:59 CLS Outpatient JEWEL ANTHONY MD, V [facility] RAD SUBDURAL HEMATOMA [id number] 06/19/2016 03:30:00 017 16:45:00 DIS Inpatient FÁTIMA MONTANA MD [facility] ICU S/P FALL;NEW R SUBDURAL HEMATOMA ON SUBACUTE [id number] 06/11/2016 13:12:00 017 23:59:59 CLS Outpatient BALDOMERO PUENTE [facility] RAD TESTICULAR SWEL LING [id number] 06/11/2016 13:05:00 017 23:59:59 CLS Outpatient VIOLETTE PEREZ MD [facility] RAD SUBDURAL HEMATOMA [id number] 05/19/2016 14:06:00 016 17:10:00 DIS Emergency TATIANA IRBY APRN [facility] ER FALL/HEAD LAC [id number] 11/15/2013 13:18:00 014 23:59:59 CLS Outpatient KATYA BRIONES MD [facility] 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
[2020-01-04] MEDS: NOREPINEPHRINE 4 MG/250 ML 250 ML IV SCH (17:55)
[2020-01-04] MEDS: VASOPRESSIN INJECTION 20 UNIT in NORMAL SALINE 100 ML IV SCH (17:56)
[2020-01-04] MEDS ORDERED: CATHETER FLUSH 10 ML SYR IV PRN (18:00)
[2020-01-04] MEDS ORDERED: EPINEPHrine 1 MG INJECTION 2 MG in NS (IVPB) 248 ML IV SCH (18:00)
[2020-01-04] MEDS: NS IV 1000 ML 1,000 ML IV SCH (18:01)
[2020-01-04] MEDS: ENOXAPARIN 80 MG/0.8 ML (LOVENOX) SYR SC SCH (18:07)
[2020-01-04] MEDS: GENTAMICIN 0.3% OPHTH SOLN 5 ML OU SCH (21:38)
[2020-01-04] MEDS: RT-ALBUTEROL INHALER HFA (VENTOLIN HFA) 18 GM IH SCH ×2 (22:00→22:38)
[2020-01-05] VITALS (20 sets, daily range): BP systolic 81–190; BP diastolic 49–100
[2020-01-05] MEDS: NS IV 1000 ML 1,000 ML IV SCH ×4 (00:02→20:24)
[2020-01-05] MEDS: GENTAMICIN 0.3% OPHTH SOLN 5 ML OU SCH ×7 (00:02→23:32)
[2020-01-05] MEDS: RT-ALBUTEROL INHALER HFA (VENTOLIN HFA) 18 GM IH SCH ×6 (03:09→23:05)
[2020-01-05] MEDS: NOREPINEPHRINE 4 MG/250 ML 250 ML IV SCH ×2 (03:33→12:29)
[2020-01-05] MEDS: VASOPRESSIN INJECTION 20 UNIT in NORMAL SALINE 100 ML IV SCH ×2 (03:33→12:29)
[2020-01-05 03:37] LABS: BASOPHILS % (AUTO) 0 % (0-10); EOSINOPHILS # (AUTO) 0.1 10^3/uL (0.0-0.3); EOSINOPHILS % (AUTO) 1 % (0-10); HEMATOCRIT 34 % (40-54); HEMOGLOBIN 10.9 G/DL (13.3-17.7); LYMPHOCYTES # (AUTO) 1.7 X 10^3 (1.0-4.0); LYMPHOCYTES % (AUTO) 23 % (12-44); MEAN CORPUSCULAR HEMOGLOBIN 29 PG (25-34); MEAN CORPUSCULAR HGB CONC 32 G/DL (32-36); MEAN CORPUSCULAR VOLUME 89 FL (80-99); MONOCYTES # (AUTO) 0.6 X 10^3 (0.0-1.0); MONOCYTES % (AUTO) 8 % (0-12); NEUTROPHILS # (AUTO) 5.1 X 10^3 (1.8-7.8); NEUTROPHILS % (AUTO) 68 % (42-75); PLATELET COUNT 106 10^3/uL (130-400); RED CELL DISTRIBUTION WIDTH 15.9 % (10.0-14.5); WHITE BLOOD COUNT 7.5 10^3/uL (4.3-11.0)
[2020-01-05 03:47] LABS: CHLORIDE 113 MMOL/L (98-107); SODIUM 140 MMOL/L (135-145)
[2020-01-05 03:49] LABS: CALCIUM 7.5 MG/DL (8.5-10.1); GLUCOSE 95 MG/DL (70-105)
[2020-01-05 03:51] LABS: CARBON DIOXIDE 18 MMOL/L (21-32)
[2020-01-05 03:53] LABS: CREATININE SERUM 0.99 MG/DL (0.60-1.30); GFR ESTIMATED > 60; PHOSPHORUS 2.9 MG/DL (2.3-4.7)
[2020-01-05 03:54] LABS: BUN/CREATININE RATIO 13
[2020-01-05 03:56] LABS: MAGNESIUM 1.7 MG/DL (1.6-2.4)
[2020-01-05 04:29] LABS: ANISOCYTOSIS SLIGHT; BASOPHILS % (MANUAL) 1 %; EOSINOPHILS % (MANUAL) 1 %; HYPOCHROMASIA SLIGHT; LYMPHOCYTES % (MANUAL) 24 %; MONOCYTES % (MANUAL) 8 %; NEUTROPHILS % (MANUAL) 65 %; REACTIVE LYMPHOCYTES 1 %
[2020-01-05] MEDS: ENOXAPARIN 80 MG/0.8 ML (LOVENOX) SYR SC SCH ×2 (05:59→17:38)
[2020-01-05] MEDS ORDERED: cefTRIAXone 1,000 MG/SWFI 10 ML IV PUSH IV SCH ×2 (09:00)
--- NOTE | 2020-01-05 09:57 | History & Physical-Hospitalist ---
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 Patient was swabbed for COVID and that is pending. Profound dementia noted so unable to obtain details from the patient. Patient is a DNR. Checked meds and labs. I used PPE during exam. Patient very confused. AF now with NSR. Patient with known PAF. Source: RN/MD Exam Limitations: clinical condition Date Seen 01/05/20 Time Seen by a Provider: 09:00 Attending Physician June Henry MD PCP Pravin Proctor MD Referring Physician Date of Admission Jan 04, 2020 at 15:24 Home Medications & Allergies Home Medications Reviewed patient Home Medication Reconciliation performed by pharmacy medication reconciliations educational technician and/or nursing. Patients Allergies have been reviewed. 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) Alcohol Use: Denies Use Recreational Drug Use: No Smoking Status: Never a Smoker 2nd Hand Smoke Exposure: No Recent Foreign Travel: No Contact w/other who traveled: No Recent Hopitalizations: No Recent Infectious Disease Expo: No Immunizations Up To Date Tetanus Booster (TDap): Unknown Date of Pneumonia Vaccine: May 08, 2018 Date of Influenza Vaccine: Mar 06, 2019 Past Medical History Surgeries: Cardiac, Coronary Stent Currently Using CPAP: No Currently Using BIPAP: No Cardiac: Atrial Fibrillation, Hypertension Neurological: Dementia Gastrointestinal: Gastroesophageal Reflux, Chronic Constipation Musculoskeletal: Contracture HEENT: Dysphagia, Glaucoma Psychosocial: Sleep Difficulties, Depression History of Blood Disorders: Yes (ANEMIA) Family History Patient reports no known family medical history. No Pertinent Family Hx ELECTROLYE IMBALANCES Review of Systems Constitutional: see HPI Psychiatric/Neurological: Other (confusion) Physical Exam Physical Exam Vital Signs Vital Signs - First Documented 01/04/20 12:55 Temp 36.8 Pulse 133 Resp 24 B/P (MAP) 141/72 (95) Pulse Ox 96 O2 Delivery Room Air Capillary Refill : Less Than 3 Seconds Height, Weight, BMI Height: 5'7.00" Weight: 173lbs. 6.0oz. 78.836765zo; 25.00 BMI Method:Estimated General Appearance: No Apparent Distress, Chronically ill Eyes: Right Eye Normal Inspection, Right Eye PERRL HEENT: PERRL/EOMI, Normal ENT Inspection, Pharynx Normal, Moist Mucous Membranes Neck: Full Range of Motion, Normal Inspection, Non Tender Respiratory: Chest Non Tender, Lungs Clear, Normal Breath Sounds, No Accessory Muscle Use, No Respiratory Distress Cardiovascular: Regular Rate, Rhythm, No Edema, No Gallop, No JVD, No Murmur, Normal Peripheral Pulses Gastrointestinal: Normal Bowel Sounds, No Organomegaly, No Pulsatile Mass, Non Tender, Soft Back: Normal Inspection, No CVA Tenderness, No Vertebral Tenderness Extremity: Normal Capillary Refill, Normal Inspection, Normal Range of Motion, Non Tender, No Calf Tenderness, No Pedal Edema Neurologic/Psychiatric: Alert, No Motor/Sensory Deficits, Normal Mood/Affect, Disoriented Skin: Normal Color, Warm/Dry Lymphatic: No Adenopathy Results Results/Procedures Labs Laboratory Tests 01/04/20 13:15 01/05/20 03:24 Patient resulted labs reviewed. Assessment/Plan Admission Diagnosis Assessment: Sepsis UTI COVID swabbed AF w/RVR Severe dementia Plan: Abx COVID swab pending Cardiology appreciated Poor prognosis Admission Status: Inpatient Order (span 2 midnights) Reason for Inpatient Admission: sepsis with af w/rvr Diagnosis/Problems Diagnosis/Problems (1) Atrial fibrillation with rapid ventricular response Status: Acute (2) UTI (urinary tract infection) Status: Acute (3) Severe dementia Status: Acute Clinical Quality Measures DVT/VTE Risk/Contraindication: Risk Factor Score Per Nursin RFS Level Per Nursing on Admit: 4+=Very High JUN STAFFORD DO Jan 05, 2020 09:57
--- NOTE | 2020-01-05 11:39 | NUR ---
PT KEEPS MOVING HEAD. PT WILL NOT PUT THE SPACER IN HIS MOUTH. Addendum: 01/05/20 at 1141 by ELANA GUTIÉRREZ RT Amended: Links added.
[2020-01-05] MEDS: cefTRIAXone FOR IV USE 1,000 MG in WATER (STERILE) FOR INJECTION 10 ML IV SCH (12:45)
--- NOTE | 2020-01-05 13:18 | Consultation-Cardiology ---
HPI-Cardiology Cardiology Consultation: Date of Consultation 01/05/20 Time Seen by a Provider: 11:30 Date of Admission Attending Physician June Henry MD Admitting Physician Pravin Proctor MD Consulting Physician MASOOD BIGGS MD, MA, FACP, FACC, FSCAI, CCDS Primary product/device technologist: Dr Banegas HPI: Chief Complaint: Reason for consultation: A fib with RVR HPI 84 yo man, resident of [place], admitted to Dr Franco's service on 01/04/20 with fever and cough He suffers from dementia and is unable to provide any history or ROS Review of Systems-Cardiology Review of Systems Constitutional: other (He suffers from dementia and is unable to provide any history or ROS) IDF-Lutgmy-Awxvsu Hx Patient Social History Alcohol Use: Denies Use Recreational Drug Use: No 2nd Hand Smoke Exposure: No Recent Foreign Travel: No Recent Infectious Disease Expo: No Hospitalization with Isolation: Denies Immunizations Up To Date Tetanus Booster (TDap): Unknown Date of Pneumonia Vaccine: May 08, 2018 Date of Influenza Vaccine: Mar 06, 2019 Past Medical History PMH As described under Assessment. Family Medical History Family History: Patient reports no known family medical history. Allergies and Home Medications Allergies Coded Allergies: No Known Drug Allergies (Unverified , 05/08/17) Home Medications Acetaminophen 325 Mg Tablet, 650 MG PO Q4H PRN for PAIN-MILD, (Reported) TAKES 2 (325 MG) TABLETS Acetaminophen 650 Mg Supp.rect, 650 MG RC Q4H PRN for PAIN-MILD (1-4) OR TEMPA TURE, (Reported) Albuterol Sulfate 2.5 Mg/3 Ml Vial.neb, 2.5 MG IH Q8H PRN for SHORTNESS OF BREATH, (Reported) Apixaban 5 Mg Tablet, 5 MG PO BID Prescribed by: SANDY CASE on 08/07/19 1431 Cephalexin 250 Mg/5 Ml Susp.recon, 10 ML PO QID Prescribed by: SANDY CASE on 08/07/19 1406 Ketoconazole 15 Gm Cream..g., 1 APPLIC TP DAILY, (Reported) APPLY TO BOTH FEET FOR TINEA Latanoprost 2.5 Ml Drops, 1 DROP OU HS, (Reported) Metoprolol Tartrate 25 Mg Tablet, 25 MG PO TID Hold for heart rate < 60. Hold for SBP < 90. Prescribed by: SANDY CASE on 08/07/19 1413 Ondansetron HCl 4 Mg Tablet, 4 MG PO Q6H PRN for NAUSEA/VOMITING-1ST LINE, (Reported) Polyethylene Glycol 3350 17 Gm Powd.pack, 17 GM PO BID PRN for CONSTIPATION-2ND LINE, (Reported) Promethazine HCl 25 Mg Supp.rect, 25 MG RC Q6H PRN for NAUSEA/VOMITING-2ND LINE, (Reported) Patient Home Medication List Home Medication List Reviewed: Yes Physical Exam-Cardiology Physical Exam Vital Signs/I&O 01/05/20 01/05/20 01/05/20 01/05/20 01:00 01:00 02:00 03:00 Pulse 64 60 58 46 Resp 13 9 B/P (MAP) 114/66 (82) 132/88 (103) 128/100 (109) Pulse Ox 93 95 96 O2 Delivery Room Air Room Air Room Air 01/05/20 01/05/20 01/05/20 01/05/20 03:10 03:35 03:45 04:00 Temp 36.3 Pulse 56 Resp 14 B/P (MAP) 131/71 (91) Pulse Ox 95 93 O2 Delivery Room Air Room Air Room Air 01/05/20 01/05/20 01/05/20 01/05/20 05:00 06:00 07:00 07:00 Pulse 62 51 50 50 Resp 8 18 11 B/P (MAP) 134/67 (89) 119/98 (105) 128/68 (88) Pulse Ox 94 97 96 O2 Delivery Room Air Room Air Room Air 01/05/20 01/05/20 01/05/20 01/05/20 07:20 08:00 08:00 08:01 Temp 36.5 Pulse 59 Resp 22 B/P (MAP) 141/63 (89) Pulse Ox 96 94 O2 Delivery Room Air Room Air Room Air 01/05/20 01/05/20 01/05/20 01/05/20 09:00 10:00 11:00 12:29 Pulse 53 56 52 52 Resp 14 22 14 B/P (MAP) 120/91 (101) 100/63 (75) 120/66 (84) 120/66 Pulse Ox 91 100 100 O2 Delivery Room Air Room Air Room Air 01/05/20 12:29 Pulse 52 B/P (MAP) 120/66 01/05/20 00:00 Intake Total 3269 ml Output Total 325 ml Balance 2944 ml Capillary Refill : Less Than 3 Seconds Constitutional: No AAO x 3; well-developed, well-nourished HEENT: PERRL Neck: carotid pulses are 2 + bilaterally, with good upstrokes Respiratory: other (Scattered rhonchi over large airways, air entry somewhat diminished at the bases) Cardiovascular: regular rate-rhythm, S1 and S2, systolic murmur (soft SENTHIL at card base) Gastrointestinal: No tender; soft; No guarding, No rebound; audible bowel sounds Genital/Rectal: other (large scrotal hernia with normal overlying skin, palpable peristalsis within this hernia. ) Extremities: swelling (mild, bilat leg edema); No clubbing, No cyanosis Neurologic/Psychiatric: other (not verbally responsive, not able to cooperate with a neuro exam, seems to move all limbs) Skin: warm/dry; No cool, No diaphoresis, No rash on exposed areas, No ulcerations on exposed areas Data Review Labs Laboratory Tests 01/04/20 13:10: Lactic Acid Level 6.71*H 01/04/20 13:15: White Blood Count 11.8H, Red Blood Count 4.59, Hemoglobin 13.4, Hematocrit 41, Mean Corpuscular Volume 88, Mean Corpuscular Hemoglobin 29, Mean Corpuscular Hemoglobin Concent 33, Red Cell Distribution Width 15.6H, Platelet Count 143, Mean Platelet Volume 8.7, Neutrophils (%) (Auto) 79H, Lymphocytes (%) (Auto) 13, Monocytes (%) (Auto) 8, Eosinophils (%) (Auto) 0, Basophils (%) (Auto) 0, Neutrophils # (Auto) 9.3H, Lymphocytes # (Auto) 1.6, Monocytes # (Auto) 0.9, Eosinophils # (Auto) 0.0, Basophils # (Auto) 0.0, Prothrombin Time 13.6, INR Comment 1.0, Activated Partial Thromboplast Time 30, Sodium Level 141, Potassium Level 4.0, Chloride Level 105, Carbon Dioxide Level 22, Anion Gap 14, Blood Urea Nitrogen 17, Creatinine 1.17, Estimat Glomerular Filtration Rate 59, BUN/Creatinine Ratio 15, Glucose Level 108H, Calcium Level 8.7, Corrected Calcium 8.7, Total Bilirubin 0.5, Aspartate Amino Transf (AST/SGOT) 16, Alanine Aminotransferase (ALT/SGPT) 11, Alkaline Phosphatase 104, B-Type Natriuretic Peptide 268.0H, Total Protein 7.1, Albumin 4.0, Procalcitonin 0.03 01/04/20 13:19: 01/04/20 14:00: Urine Color YELLOW, Urine Clarity SL CLOUDY, Urine pH 6.0, Urine Specific Mentor 1.020, Urine Protein TRACEH, Urine Glucose (UA) NEGATIVE, Urine Ketones NEGATIVE, Urine Nitrite POSITIVEH, Urine Bilirubin NEGATIVE, Urine Urobilinogen 0.2, Urine Leukocyte Esterase 3+H, Urine RBC (Auto) 3+H, Urine RBC 25-50H, Urine WBC >100H, Urine Squamous Epithelial Cells RARE, Urine Crystals NONE, Urine Bacteria MODERATEH, Urine Casts NONE, Urine Mucus NEGATIVE, Urine Culture Indicated CULTURE PENDING 01/04/20 15:45: Lactic Acid Level 2.80*H 01/04/20 17:45: Lactic Acid Level 1.68 01/05/20 03:24: White Blood Count 7.5, Red Blood Count 3.80L, Hemoglobin 10.9L, Hematocrit 34L, Mean Corpuscular Volume 89, Mean Corpuscular Hemoglobin 29, Mean Corpuscular Hemoglobin Concent 32, Red Cell Distribution Width 15.9H, Platelet Count 106L, Mean Platelet Volume 9.0, Neutrophils (%) (Auto) 68, Lymphocytes (%) (Auto) 23, Monocytes (%) (Auto) 8, Eosinophils (%) (Auto) 1, Basophils (%) (Auto) 0, Neutrophils # (Auto) 5.1, Lymphocytes # (Auto) 1.7, Monocytes # (Auto) 0.6, Eosinophils # (Auto) 0.1, Basophils # (Auto) 0.0, Neutrophils % (Manual) 65, Lymphocytes % (Manual) 24, Monocytes % (Manual) 8, Eosinophils % (Manual) 1, Basophils % (Manual) 1, Reactive Lymphocytes 1, Hypochromasia SLIGHT, Anisocytosis SLIGHT, Sodium Level 140, Potassium Level 4.0, Chloride Level 113H, Carbon Dioxide Level 18L, Anion Gap 9, Blood Urea Nitrogen 13, Creatinine 0.99, Estimat Glomerular Filtration Rate > 60, BUN/Creatinine Ratio 13, Glucose Level 95, Calcium Level 7.5L, Phosphorus Level 2.9, Magnesium Level 1.7 Microbiology 01/04/20 Urine Culture - Preliminary, Resulted Staphylococcus aureus Laboratory Tests 01/04/20 13:15 01/05/20 03:24 A/P-Cardiology Assessment/Admission Diagnosis Sepsis of undetermined etiology, being managed by Dr Franco PAF Chronic anticoag with axpixaban for stroke prophylaxis Dementia Discussion and Recomendations * Back in NSR with sinus arrhythmia at time of my exam. D/c iv amiodarone liz use running sinus lisandro with considerable pauses at times * Resume oral apixaban and d/c sc enoxaparin when oral meds are allowed * Monitor labs Clinical Quality Measures DVT/VTE Risk/Contraindication: Risk Factor Score Per Nursin RFS Level Per Nursing on Admit: 4+=Very High MASOOD BIGGS MD FACP FAC CCDS Jan 05, 2020 13:18
--- NOTE | 2020-01-05 14:45 | NUR ---
DUE TO CHANGES IN STAFFING CARE OF PT TO THIS RN, REPORT RECEIVED FROM WALLY HERNANDEZ.
--- NOTE | 2020-01-05 17:05 | NUR ---
DR STAFFORD NOTIFIED OF NEGATIVE COVID RESULTS, ORDERS RECEIVED TO D/C ISOLATION
--- NOTE | 2020-01-05 18:13 | NUR ---
PT TRANSFERRED TO ROOM 408 VIA BED ACCOMPANIED BY THIS RN, REPORT GIVEN TO PHILIP HERNANDEZ PRIOR TO TRANSFER, ALL PERSONAL BELONGINGS SENT DOWN WITH PT.
--- NOTE | 2020-01-05 18:14 | NUR ---
THIS RN IS NOW TAKING OVER CARE OF PT. RECEIVED REPORT FROM MICHELLE HERNANDEZ IN ICU. PT IS RESTING COMFORTABLY IN BED AT THIS TIME.
[2020-01-06] VITALS: BP 121/63
[2020-01-06] MEDS: NS IV 1000 ML 1,000 ML IV SCH ×3 (03:22→17:10)
[2020-01-06] MEDS: GENTAMICIN 0.3% OPHTH SOLN 5 ML OU SCH ×5 (03:23→20:44)
[2020-01-06 04:15] VITALS: BP 147/67
[2020-01-06 05:01] LABS: BASOPHILS % (AUTO) 0 % (0-10); EOSINOPHILS # (AUTO) 0.1 10^3/uL (0.0-0.3); EOSINOPHILS % (AUTO) 2 % (0-10); HEMATOCRIT 33 % (40-54); HEMOGLOBIN 10.7 G/DL (13.3-17.7); LYMPHOCYTES # (AUTO) 1.3 X 10^3 (1.0-4.0); LYMPHOCYTES % (AUTO) 19 % (12-44); MEAN CORPUSCULAR HEMOGLOBIN 28 PG (25-34); MEAN CORPUSCULAR HGB CONC 33 G/DL (32-36); MEAN CORPUSCULAR VOLUME 87 FL (80-99); MEAN PLATELET VOLUME 8.6 FL (7.4-10.4); MONOCYTES # (AUTO) 0.5 X 10^3 (0.0-1.0); MONOCYTES % (AUTO) 7 % (0-12); NEUTROPHILS # (AUTO) 5.3 X 10^3 (1.8-7.8); NEUTROPHILS % (AUTO) 73 % (42-75); PLATELET COUNT 103 10^3/uL (130-400); RED CELL DISTRIBUTION WIDTH 15.4 % (10.0-14.5); WHITE BLOOD COUNT 7.2 10^3/uL (4.3-11.0)
[2020-01-06 05:17] LABS: CHLORIDE 113 MMOL/L (98-107); POTASSIUM 3.9 MMOL/L (3.6-5.0); SODIUM 141 MMOL/L (135-145)
[2020-01-06 05:18] LABS: CALCIUM 7.5 MG/DL (8.5-10.1)
[2020-01-06 05:19] LABS: GLUCOSE 72 MG/DL (70-105)
[2020-01-06 05:20] LABS: CARBON DIOXIDE 19 MMOL/L (21-32)
[2020-01-06 05:23] LABS: CREATININE SERUM 0.97 MG/DL (0.60-1.30); GFR ESTIMATED > 60
[2020-01-06 05:24] LABS: BUN/CREATININE RATIO 11
[2020-01-06] MEDS: ENOXAPARIN 80 MG/0.8 ML (LOVENOX) SYR SC SCH ×2 (06:24→17:10)
--- NOTE | 2020-01-06 06:24 | Progress Note - Hospitalist ---
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 Patient was swabbed for COVID and that is pending. Profound dementia noted so unable to obtain details from the patient. Patient is a DNR. Checked meds and labs. I used PPE during exam. Patient very confused. AF now with NSR. Patient with known PAF. Subjective/Events-last exam Patient sleeps most of the time RN has no concerns Patient very debilitated Not safe to have anything by oral route appears to be aspiration risk of which she has had before Patient definitely a hospice candidate Daughter is a hospitalist in [place] and she is at the bedside today and wants Lasix given so I referred nurse to talk to cardiology about that Focused Exam Lactate Level 01/04/20 13:10: Lactic Acid Level 6.71*H 01/04/20 15:45: Lactic Acid Level 2.80*H 01/04/20 17:45: Lactic Acid Level 1.68 Objective Exam Vital Signs Vital Signs Date Time Temp Pulse Resp B/P (MAP) Pulse Ox O2 Delivery O2 Flow Rate FiO2 01/06/20 16:00 36.7 60 20 139/82 (101) 98 Nasal Cannula 2.00 Capillary Refill : Less Than 3 Seconds General Appearance: No Apparent Distress, WD/WN, Chronically ill Respiratory: No Accessory Muscle Use, No Respiratory Distress, Decreased Breath Sounds Cardiovascular: Regular Rate, Rhythm Neurologic/Psychiatric: Alert, Disoriented Results/Procedures Lab Laboratory Tests 01/06/20 04:52 01/06/20 04:56 Patient resulted labs reviewed. Assessment/Plan Assessment and Plan Assess & Plan/Chief Complaint Assessment: Sepsis UTI COVID swabbed AF w/RVR Severe dementia Plan: Abx COVID swab pending Cardiology appreciated Poor prognosis 01/06/2020: Supportive care Very difficult situation Lasix per cardiology Patient hospice candidate Very debilitated Diagnosis/Problems Diagnosis/Problems (1) Atrial fibrillation with rapid ventricular response Status: Acute (2) UTI (urinary tract infection) Status: Acute (3) Severe dementia Status: Acute Clinical Quality Measures DVT/VTE Risk/Contraindication: Risk Factor Score Per Nursin RFS Level Per Nursing on Admit: 4+=Very High JUN STAFFORD DO Jan 06, 2020 06:24
[2020-01-06 07:56] VITALS: BP 136/84
[2020-01-06 11:35] VITALS: BP 146/59
[2020-01-06] MEDS ORDERED: WATER (STERILE) FOR INJECTION 10 ML ONE (12:28)
[2020-01-06] MEDS ORDERED: cefTRIAXone 1,000 MG IV (ROCEPHIN) VIAL ONE (12:28)
[2020-01-06] MEDS: cefTRIAXone FOR IV USE 1,000 MG in WATER (STERILE) FOR INJECTION 10 ML IV SCH (12:32)
--- NOTE | 2020-01-06 12:33 | Progress Note - Cardiology ---
Cardiology SOAP Progress Note Subjective: Not able to provide any meaningful history Verbally unresponsive Objective: I&O/Vital Signs 01/06/20 01/06/20 01/06/20 01/06/20 01:00 04:15 06:42 07:56 Temp 37.3 37.4 Pulse 75 60 65 59 Resp 20 18 B/P (MAP) 147/67 (93) 136/84 (101) Pulse Ox 95 93 O2 Delivery Nasal Cannula Nasal Cannula O2 Flow Rate 1.00 1.00 01/06/20 01/06/20 08:38 11:35 Temp 37.2 Pulse 61 Resp 18 B/P (MAP) 146/59 (88) Pulse Ox 95 O2 Delivery Room Air Nasal Cannula O2 Flow Rate 1.00 01/06/20 00:00 Intake Total 0 ml Output Total 1550 ml Balance -1550 ml Weight (Pounds): 173 Weight (Ounces): 6.0 Weight (Calculated Kilograms): 78.552727 Constitutional: No AAO x 3; well-developed, well-nourished Respiratory: other (Scattered rhonchi over large airways, air entry somewhat diminished at the bases) Cardiovascular: regular rate-rhythm, S1 and S2, systolic murmur (soft SENTHIL at card base) Gastrointestional: No tender; soft; No guarding, No rebound; audible bowel sounds Genital/Rectal: other (large scrotal hernia with normal overlying skin, palpable peristalsis within this hernia. ) Extremities: swelling (mild, bilat leg edema); No clubbing, No cyanosis Neurologic/Psychiatric: other (not verbally responsive, not able to cooperate with a neuro exam, seems to move all limbs) Skin: warm/dry; No cool, No diaphoresis, No rash on exposed areas, No ulcerations on exposed areas Results/Procedures: Labs Laboratory Tests 01/06/20 04:52: Sodium Level 141, Potassium Level 3.9, Chloride Level 113H, Carbon Dioxide Level 19L, Anion Gap 9, Blood Urea Nitrogen 11, Creatinine 0.97, Estimat Glomerular Filtration Rate > 60, BUN/Creatinine Ratio 11, Glucose Level 72, Calcium Level 7.5L 01/06/20 04:56: White Blood Count 7.2, Red Blood Count 3.77L, Hemoglobin 10.7L, Hematocrit 33L, Mean Corpuscular Volume 87, Mean Corpuscular Hemoglobin 28, Mean Corpuscular Hemoglobin Concent 33, Red Cell Distribution Width 15.4H, Platelet Count 103L, Mean Platelet Volume 8.6, Neutrophils (%) (Auto) 73, Lymphocytes (%) (Auto) 19, Monocytes (%) (Auto) 7, Eosinophils (%) (Auto) 2, Basophils (%) (Auto) 0, Neutrophils # (Auto) 5.3, Lymphocytes # (Auto) 1.3, Monocytes # (Auto) 0.5, Eosinophils # (Auto) 0.1, Basophils # (Auto) 0.0 Microbiology 01/04/20 MRSA Screen - Final, Complete MRSA not isolated 01/04/20 Urine Culture - Preliminary, Resulted Staphylococcus aureus 01/04/20 Blood Culture - Preliminary, Resulted No growth Laboratory Tests 01/04/20 13:15 01/05/20 03:24 01/06/20 04:52 01/06/20 04:56 A/P: Assessment: Sepsis of undetermined etiology, being managed by Dr Franco Anemia and thrombocytopenia, being managed by Dr Franco PAF Chronic anticoag with axpixaban for stroke prophylaxis Dementia Plan: * Multiple comorbidities (see above). Cardiac status clinically stable. Other issues being managed by Dr Franco * Monitor labs MASOOD BIGGS MD FACP FAC CCDS Jan 06, 2020 12:33
[2020-01-06] MEDS ORDERED: ACETAMINOPHEN 650 MG SUPP (TYLENOL) PR PRN (15:00)
[2020-01-06 16:00] VITALS: BP 139/82
[2020-01-06 20:00] VITALS: BP 128/72
[2020-01-07 00:20] VITALS: BP_SYST 109; BP_SYST 143; BP_DIAS 69; BP_DIAS 70
[2020-01-07] MEDS: GENTAMICIN 0.3% OPHTH SOLN 5 ML OU SCH ×7 (00:30→23:41)
[2020-01-07] MEDS: NS IV 1000 ML 1,000 ML IV SCH ×4 (00:30→20:44)
[2020-01-07 04:15] VITALS: BP 160/92
[2020-01-07 06:06] LABS: CHLORIDE 111 MMOL/L (98-107); POTASSIUM 3.7 MMOL/L (3.6-5.0); SODIUM 142 MMOL/L (135-145)
[2020-01-07 06:08] LABS: CALCIUM 7.5 MG/DL (8.5-10.1); GLUCOSE 83 MG/DL (70-105)
[2020-01-07] MEDS: ENOXAPARIN 80 MG/0.8 ML (LOVENOX) SYR SC SCH ×2 (06:08→17:27)
[2020-01-07 06:09] LABS: BASOPHILS % (AUTO) 0 % (0-10); EOSINOPHILS # (AUTO) 0.2 10^3/uL (0.0-0.3); EOSINOPHILS % (AUTO) 4 % (0-10); HEMATOCRIT 35 % (40-54); HEMOGLOBIN 11.6 G/DL (13.3-17.7); LYMPHOCYTES % (AUTO) 15 % (12-44); MEAN CORPUSCULAR HEMOGLOBIN 29 PG (25-34); MEAN CORPUSCULAR HGB CONC 33 G/DL (32-36); MEAN CORPUSCULAR VOLUME 86 FL (80-99); MEAN PLATELET VOLUME 8.8 FL (7.4-10.4); MONOCYTES # (AUTO) 0.6 X 10^3 (0.0-1.0); MONOCYTES % (AUTO) 9 % (0-12); NEUTROPHILS % (AUTO) 73 % (42-75); PLATELET COUNT 112 10^3/uL (130-400); RED CELL DISTRIBUTION WIDTH 15.2 % (10.0-14.5); WHITE BLOOD COUNT 6.8 10^3/uL (4.3-11.0)
[2020-01-07 06:10] LABS: CARBON DIOXIDE 21 MMOL/L (21-32)
[2020-01-07 06:12] LABS: CREATININE SERUM 0.84 MG/DL (0.60-1.30)
[2020-01-07 06:13] LABS: BUN/CREATININE RATIO 10
[2020-01-07 06:22] LABS: GFR ESTIMATED > 60
[2020-01-07 07:31] VITALS: BP 154/88
[2020-01-07] MEDS ORDERED: TMSL.4C PO (08:28)
[2020-01-07] MEDS ORDERED: DORZ10DR27 OU (08:28)
[2020-01-07] MEDS ORDERED: POLY17PO6 PO ×2 (08:28→08:34)
[2020-01-07] MEDS ORDERED: ACET650S15 RC (08:28)
[2020-01-07] MEDS ORDERED: LATA7.5D OU (08:28)
[2020-01-07] MEDS ORDERED: LATA2.5D5 OU (08:40)
--- NOTE | 2020-01-07 08:41 | NUR ---
MED REC WAS ENTERED USING THE PHYSICIAN'S ORDERS FROM [facility]. OTC: MIRALAX TYLENOL
--- NOTE | 2020-01-07 09:34 | Progress Note - Cardiology ---
Cardiology SOAP Progress Note Subjective: Lying in bed. Minimally responsive. Opens eyes. Does not provide any useful information. Objective: I&O/Vital Signs 01/07/20 01/07/20 01/07/20 01/07/20 00:20 01:00 04:15 07:00 Temp 37.4 36.8 Pulse 75 40 58 42 Resp 24 22 B/P (MAP) 143/70 (94) 160/92 (114) Pulse Ox 98 94 O2 Delivery Nasal Cannula Nasal Cannula O2 Flow Rate 2.00 2.00 01/07/20 01/07/20 01/07/20 07:31 09:16 10:44 Temp 37.2 Pulse 68 Resp 22 B/P (MAP) 154/88 (110) Pulse Ox 96 96 O2 Delivery Nasal Cannula Nasal Cannula Nasal Cannula O2 Flow Rate 2.00 2.00 2.00 01/07/20 00:00 Intake Total 1000 ml Output Total 3100 ml Balance -2100 ml Weight (Pounds): 173 Weight (Ounces): 6.0 Weight (Calculated Kilograms): 78.655240 Constitutional: No AAO x 3; well-developed, well-nourished Respiratory: other (Scattered rhonchi over large airways, air entry somewhat diminished at the bases) Cardiovascular: regular rate-rhythm, S1 and S2, systolic murmur (soft SENTHIL at card base) Gastrointestional: No tender; soft; No guarding, No rebound; audible bowel sounds Genital/Rectal: other (large scrotal hernia with normal overlying skin, palpable peristalsis within this hernia. ) Extremities: swelling (mild, bilat leg edema); No clubbing, No cyanosis Neurologic/Psychiatric: other (not verbally responsive, not able to cooperate with a neuro exam, seems to move all limbs) Skin: warm/dry; No cool, No diaphoresis, No rash on exposed areas, No ulcerations on exposed areas Results/Procedures: Labs Laboratory Tests 01/07/20 05:41: White Blood Count 6.8, Red Blood Count 4.04L, Hemoglobin 11.6L, Hematocrit 35L, Mean Corpuscular Volume 86, Mean Corpuscular Hemoglobin 29, Mean Corpuscular Hemoglobin Concent 33, Red Cell Distribution Width 15.2H, Platelet Count 112L, Mean Platelet Volume 8.8, Neutrophils (%) (Auto) 73, Lymphocytes (%) (Auto) 15, Monocytes (%) (Auto) 9, Eosinophils (%) (Auto) 4, Basophils (%) (Auto) 0, Neutrophils # (Auto) 5.0, Lymphocytes # (Auto) 1.0, Monocytes # (Auto) 0.6, Eosinophils # (Auto) 0.2, Basophils # (Auto) 0.0, Sodium Level 142, Potassium Level 3.7, Chloride Level 111H, Carbon Dioxide Level 21, Anion Gap 10, Blood Urea Nitrogen 8, Creatinine 0.84, Estimat Glomerular Filtration Rate > 60, BUN/Creatinine Ratio 10, Glucose Level 83, Calcium Level 7.5L Microbiology 01/04/20 MRSA Screen - Final, Complete MRSA not isolated 01/04/20 Urine Culture - Preliminary, Resulted Staphylococcus aureus 01/04/20 Blood Culture - Preliminary, Resulted No growth Laboratory Tests 01/06/20 04:52 01/06/20 04:56 01/07/20 05:41 A/P: Assessment: Sepsis of undetermined etiology, being managed by Dr Franco Anemia and thrombocytopenia, being managed by Dr Franco PAF Chronic anticoag with axpixaban for stroke prophylaxis Dementia Plan: * Multiple comorbidities (see above). Cardiac status clinically stable. Other issues being managed by Dr Franco * Monitor labs KEITH LOYA Jan 07, 2020 09:34
[2020-01-07 11:14] VITALS: BP 138/72
[2020-01-07] MEDS ORDERED: cefTRIAXone FOR IV USE 1,000 MG in WATER (STERILE) FOR INJECTION 10 ML IV SCH (11:45)
--- NOTE | 2020-01-07 12:16 | ST Dysphagia Evaluation ---
Speech Evaluation-General Medical Diagnosis Sepsis, UTI, profound dementia Onset Date: Jan 07, 2020 Therapy Diagnosis Therapy Diagnosis: Oropharyngeal Dysphagia Referral Referring Physician: Dr. Henry Medical History Pertinent Medical History: Atrial Fib, CAD, Dementia, HTN, CT, TBI Reviewed History: Yes Social History Home: Care Home Current Living Status: Speech PLF/Current-Dysphagia Prior Level of Function Patient is a shelter patient where he has lived for several years. Patient is dependent for all of his daily needs. Subjective Patient was cooperative with the Bedside Dysphagia Evaluation, although he has profound dementia. Cognitive Status Patient Orientation: Confused, Eyes Open, Mumbles Patient has profound dementia. Oral Motor Skills Dentition: Natural, Tumbled, Stained Ability to Follow Directions: Unable Patient was NPO pending the BDE. Oral Expression Ability: Unable Oral-Facial Assessment Oral-Facial Dentition: Normal Labial Seal Description: Normal Unable to follow directions for smile or puff cheeks. Lingual Protrusion: Normal Lingual ROM: Normal Lingual Strength: Normal Pharynx Velopharyngeal Move.: Normal Volitional Dry Swallow: Yes Voluntary Cough: Yes Can Clear Throat Volitionally: Yes Dysphagia Evaluation Consistencies Presented: Thin Liquid, Mechanical Soft, Pureed Oral Phase: Reduced Oral Transit Mild reduced oral transit for mechanical soft. Pharyngeal Phase: Delayed Swallow Mild delay swallow for all consistencies presented.. Dietary Recommendations: Mechanical Soft Liquid Recommendations: Thin Swallowing Precautions: Alternate Liquids/Solids, Double Swallow, Decreased Bolus 1/4 Tsp, Decreased Bolus 1/2 Tsp, Liquids from Spoon, No Straw, Small Bites and Sips, Sitting Upright 90 Degrees, Sitting 90 Degrees 30 Post Intake Dysphagia Evaluation Summary Patient is known to me from the shelter as well as multiple admissions to the hospital. Patient has been a hospice patient in the past and was considered for a PEG placement at one time. He has also required to be on thickened liquids in the past as well as puree. This date patient was resting in his bed when I entered his room. He alerted to his name and a gentle touch. Patient was set up for the Bedside Dysphagia Evaluation which he completed with the following presentations: thin x3 at 1/2 tsp sips without difficulty, puree x2 at 1/2 tsp bites and mechanical soft (peaches). Patient exhibits slight delay with swallow onset, however he did not exhibit any s/s of aspiration. Patient is recommended for Dysphagia II diet level with thin this date. If patient exhibits difficulty with intake he may be decreased in diet level and/or require thickened liquids due to his history. Barriers to Learning Patient has profound dementia and requires total assist with intake. Speech-Plan Patient/Family Goals Patient/Family Goals: Patient will return to the shelter upon discharge. Treatment Plan Speech Therapy Treatment Plan: Discontinue ST Treatment Duration: Jan 07, 2020 Frequency: 1 time per week Estimated Hrs Per Day: .25 hour per day Rehab Potential: Poor Barriers to Learning: Patient's profound dementia Pt/Family Agrees to Plan: Yes Safety Risks/Education Teaching Recipient: Patient Teaching Methods: Demonstration, Discussion Response to Teaching: Unable to Return Demonstration, Unable to Comprehend, Reinforcement Needed Education Topics Provided: Safety or oral intake and diet level Time Speech Therapy Time In: 10:45 Speech Therapy Time Out: 11:00 Total Billed Time: 15 Billed Treatment Time 1[address] Jan 07, 2020 12:16
--- NOTE | 2020-01-07 12:44 | Progress Note - Cardiology ---
Cardiology SOAP Progress Note Subjective: Verbally unresponsive Does not report any symptoms Objective: I&O/Vital Signs 01/07/20 01/07/20 01/07/20 01/07/20 01:00 04:15 07:00 07:31 Temp 36.8 37.2 Pulse 40 58 42 68 Resp 22 22 B/P (MAP) 160/92 (114) 154/88 (110) Pulse Ox 94 96 O2 Delivery Nasal Cannula Nasal Cannula O2 Flow Rate 2.00 2.00 01/07/20 01/07/20 01/07/20 01/07/20 09:16 10:44 11:14 12:30 Temp 37.0 Pulse 74 48 Resp 22 B/P (MAP) 138/72 (94) Pulse Ox 96 97 O2 Delivery Nasal Cannula Nasal Cannula Nasal Cannula O2 Flow Rate 2.00 2.00 2.00 01/07/20 00:00 Intake Total 1000 ml Output Total 3100 ml Balance -2100 ml Weight (Pounds): 173 Weight (Ounces): 6.0 Weight (Calculated Kilograms): 78.984183 Constitutional: No AAO x 3; well-developed, well-nourished Respiratory: other (Scattered rhonchi over large airways, air entry somewhat diminished at the bases) Cardiovascular: regular rate-rhythm, S1 and S2, systolic murmur (soft SENTHIL at card base) Gastrointestional: No tender; soft; No guarding, No rebound; audible bowel sounds Genital/Rectal: other (large scrotal hernia with normal overlying skin, palpable peristalsis within this hernia. ) Extremities: swelling (mild, bilat leg edema); No clubbing, No cyanosis Neurologic/Psychiatric: other (not verbally responsive, not able to cooperate with a neuro exam, seems to move all limbs) Skin: warm/dry; No cool, No diaphoresis, No rash on exposed areas, No ulceratio ns on exposed areas Results/Procedures: Labs Laboratory Tests 01/07/20 05:41: White Blood Count 6.8, Red Blood Count 4.04L, Hemoglobin 11.6L, Hematocrit 35L, Mean Corpuscular Volume 86, Mean Corpuscular Hemoglobin 29, Mean Corpuscular Hemoglobin Concent 33, Red Cell Distribution Width 15.2H, Platelet Count 112L, Mean Platelet Volume 8.8, Neutrophils (%) (Auto) 73, Lymphocytes (%) (Auto) 15, Monocytes (%) (Auto) 9, Eosinophils (%) (Auto) 4, Basophils (%) (Auto) 0, Neutrophils # (Auto) 5.0, Lymphocytes # (Auto) 1.0, Monocytes # (Auto) 0.6, Eosinophils # (Auto) 0.2, Basophils # (Auto) 0.0, Sodium Level 142, Potassium Level 3.7, Chloride Level 111H, Carbon Dioxide Level 21, Anion Gap 10, Blood Urea Nitrogen 8, Creatinine 0.84, Estimat Glomerular Filtration Rate > 60, BUN/Creatinine Ratio 10, Glucose Level 83, Calcium Level 7.5L Microbiology 01/04/20 MRSA Screen - Final, Complete MRSA not isolated 01/04/20 Urine Culture - Final, Complete Staphylococcus aureus 01/04/20 Blood Culture - Preliminary, Resulted No growth Laboratory Tests 01/06/20 04:52 01/06/20 04:56 01/07/20 05:41 A/P: Assessment: Sepsis of undetermined etiology, being managed by the Med Svce Anemia and thrombocytopenia, being managed by the Med Svce PAF Chronic anticoag with axpixaban for stroke prophylaxis Dementia Plan: * Cardiac status clinically stable * Monitor labs MASOOD BIGGS MD FACP [facility] CCDS Jan 07, 2020 12:44
--- NOTE | 2020-01-07 14:08 | NUR ---
CM/SS visited with patient for discharge planning. Plan: The patient will return to [facility] at time of discharge. CM/SS visited with the patients daughter Georgette ([phone]) for discharge planning. She reports the patient will be returning to [facility]. The patient's daughter had questions in regards to discharge back to facility. CM/SS contacted Sapna from [facility] to assist Georgette in getting them answered. Sapna reported that the patient will be in isolation (in a court) for a duration of 14 days; however, will not be isolated to the room. Georgette was concerned about the patient being feed adequately if on isolation. Sapna assured this sw that the patient would continue with his normal feedings. Lastly, the patient will be able to transport back to facility by [facility] with the Broda chair. CM/SS contacted Georgette and informed her of Sapna's answers. She verbalized understanding. Georgette asked if patient had ST,OT, and PT yet. CM/SS asked if physician could order skilled therapies to evaluate. He verbalized understanding. Patient is able to eat a Dysphasia II diet. Georgette verbalized understanding. CM/SS informed Georgette that patient may discharge back to facility tomorrow. She verbalized understanding. No further needs at this time.
--- NOTE | 2020-01-07 14:15 | NUR ---
pastoral care visit.
--- NOTE | 2020-01-07 15:32 | Occupational Therapy Eval ---
OT Evaluation-General/PLF Medical Diagnosis Admission Date Jan 04, 2020 at 15:24 Medical Diagnosis: Sepsis, UTI, profound dementia Onset Date: Jan 07, 2020 Therapy Diagnosis Therapy Diagnosis: Weakness Height/Weight Height (Feet): 5 Height (Inches): 7.00 Weight (Pounds): 173 Weight (Ounces): 6.0 Precautions Precautions/Isolations: Fall Prevention, Standard Precautions Referral Physician: Dr. Partida Referral Reason: Activity Tolerance, Self Care, Evaluation/Treatment, Strengthening/ROM Medical History Pertinent Medical History: Atrial Fib, CAD, Dementia, HTN, [place], TBI Additional Medical History Coronary stent, Severe dementia Current History Pt. from [place]. Came to hospital with sepsis and AF, UTI. Reviewed History: Yes Social History Home: Half-Way (24 hour) Current Living Status: Entry Into Home: Level Entry ADL-Prior Level of Function SCALE: Activities may be completed with or without assistive devices. 1-Mbaelszgmj-bkktyhe completes the activity by him/herself with no assistance from a helper. 5-Set-up or Clean-up Assistance-helper sets up or cleans up; patient completes activity. [place] assists only prior to or following the activity. 4-Supervision or Touching Assistance-helper provides verbal cues and/or touching/steadying and/or contact guard assistance as patient completes activity. Assistance may be provided throughout the activity or intermittently. 3-Partial/Moderate Assistance-helper does LESS THAN HALF the effort. [place] lifts, holds or supports trunk or limbs, but provides less than half the effort. 2-Substantial/Maximal Assistance-helper does MORE THAN HALF the effort. [place] lifts or holds trunk or limbs and provides more than half the effort. 2-Qkhmsraei-lfxuey does ALL the effort. Patient does none of the effort to complete the activity. Or, the assistance of 2 or more helpers is required for the patient to complete the activity. If activity was not attempted, code reason: 7-Patient Refused. 9-Not Applicable-not attempted and the patient did not perform the activity before the current illness, exacerbation or injury. 10-Not Attempted due to Environmental Limitations-(lack of equipment, weather restraints, etc.). 88-Not Attempted due to Medical Conditions or Safety Concerns. ADL PLOF Comments Pt. from [place]. Notes suggest pt. fully dependent at [place]. Daughter comes into room and states that pt. is alert at times, but often is not. She states that he is difficult to understand. Self Care: Dependent Functional Cognition: Dependent OT Current Status Subjective Pt. moans throughout treatment and occasionally opens eyes. Does not respond to clinician. Unable to follow cues. Daughter comes into room and pt. does open eyes. Unable to verbalize. Mental Status/Objective Patient Orientation: Confused Other Treatments Pt. at bed level. OT attempts to arouse him. Completed sternal rubs. Pt. does moan but does not open eyes. OT explains each step to pt. OT cleans face with warm washcloth. OT attempts to perform gentle PROM to bilateral hands. Pt. in bullet slugs inspector bilaterally at first. OT attempted to apply positioning device. However, it was noted that he was able to fully extend and was able to keep fingers flat. OT turned pt. in bed with max x 2 for positioning. All needs met. Pt. at on right side with daughter at bedside at end of treatment. Education OT Patient Education: Correct positioning, Exercise program, Reviewed precautions, Rehab process Teaching Recipient: Patient, Family Teaching Methods: Demonstration, Discussion Response to Teaching: Unable to Comprehend OT Offset Printing Operator Goals Care Home Goals Time Frame: Jan 09, 2020 Additional Goals: 3-ImproveStrength/Hollie 1=Demonstrate adherence to instructed precautions during ADL tasks. 2=Patient will verbalize/demonstrate understanding of assistive devices/modifications for ADL. 3=Patient will improve strength/tolerance for activity to enable patient to perform ADL's. Pt. will demonstrate ability to initiate bed roll with max assist only for improved UE and overall strength. OT Education/Plan Problem List/Assessment Assessment: Decreased Activ Tolerance, Decreased UE Strength, Dependent Transfers, Impaired Bed Mobility, Impaired I ADL's, Impaired Self-Care Skills, Restricted Funct UE ROM Discharge Recommendations Plan/Recommendations: Continue POC Therapy Discharge Recommendati: 24 Hour Supervision Treatment Plan/Plan of Care Treatment,Training & Education: Yes Patient would benefit from OT for education, treatment and training to promote independence in ADL's, mobility, safety and/or upper extremity function for ADL's. Plan of Care: Functional Mobility, UE Funct Exercise/Act Treatment Duration: Jan 09, 2020 Frequency: 3 times per week Estimated Hrs Per Day: .25 hour per day Agreement: Yes Rehab Potential: Poor Time/GCodes Start Time: 14:00 Stop Time: 14:15 Total Time Billed (hr/min): 15 Billed Treatment Time 1, ANUP SHAW OT Jan 07, 2020 15:32
--- NOTE | 2020-01-07 15:56 | Speech Therapy Progress Note ---
Therapy Progress Note ST discontinue orders received for speech due to patient being unable to participate secondary to profound dementia. Patient is unable to follow directions or express needs at this time. ASA FERNANDES Jan 07, 2020 15:56
[2020-01-07 16:00] VITALS: BP 188/75
--- NOTE | 2020-01-07 16:01 | Physical Therapy Evaluation ---
PT Evaluation-General Medical Diagnosis Admission Date Jan 04, 2020 at 15:24 Medical Diagnosis: Sepsis, UTI, profound dementia Onset Date: Jan 07, 2020 Therapy Diagnosis Therapy Diagnosis: weakness Height/Weight Height (Feet): 5 Height (Inches): 7.00 Weight (Pounds): 173 Weight (Ounces): 6.0 Precautions Precautions/Isolations: Fall Prevention, Standard Precautions Weight Bear Status Right Lower Extremity: Right Weight Bearing/Tolerated Left Lower Extremity: Left Weight Bearing/Tolerated Referral Physician: Dr. Partida Reason for Referral: Evaluation/Treatment Medical History Pertinent Medical History: Atrial Fib, CAD, Dementia, HTN, CT, TBI Current History Admitted with AMS. Found to have a UTI, sepsis. Reviewed History: Yes Social History Home: [facility] (24 hour) Current Living Status: Entry Into Home: Level Entry Prior Prior Level of Function SCALE: Activities may be completed with or without assistive devices. 0-Epqswqtwyc-nownafv completes the activity by him/herself with no assistance from a helper. 5-Set-up or Clean-up Assistance-helper sets up or cleans up; patient completes activity. [place] assists only prior to or following the activity. 4-Supervision or Touching Assistance-helper provides verbal cues and/or touching/steadying and/or contact guard assistance as patient completes activity. Assistance may be provided throughout the activity or intermittently. 3-Partial/Moderate Assistance-helper does LESS THAN HALF the effort. [place] lifts, holds or supports trunk or limbs, but provides less than half the effort. 2-Substantial/Maximal Assistance-helper does MORE THAN HALF the effort. [place] lifts or holds trunk or limbs and provides more than half the effort. 0-Pvibpbklo-cckwtq does ALL the effort. Patient does none of the effort to complete the activity. Or, the assistance of 2 or more helpers is required for the patient to complete the activity. If activity was not attempted, code reason: 7-Patient Refused. 9-Not Applicable-not attempted and the patient did not perform the activity before the current illness, exacerbation or injury. 10-Not Attempted due to Environmental Limitations-(lack of equipment, weather restraints, etc.). 88-Not Attempted due to Medical Conditions or Safety Concerns. Pt is dependent for all care; staff use a emily lift for all transfers, per daughter. She reports staff is to get him up for 3 meals a day at the [place]. Daughter reports he is total care for all. PT Evaluation-Current Subjective Pt mumbles. Occasionally opens eyes but primarily keeps them closed. Daughter present and answers questions. Transfers Roll Left to Right (QC): 1 Dependent for all rolling and scooting in bed; no active participation from patient. Very stiff and difficult to roll. Treatment Rolling side to side to perform pericare as pt incont of bowel. Rolled, changed and cleaned. Positioned in right sidelying post treatment. Daughter present and all needs met. Nurse present at end of treatment as well. Bed rails up x 4. Assessment/Needs Profound dementia. No communication or active participation with skilled therapy. Pt requires total care which necessitates nursing intervention for positioning and out of bed activity. Will follow briefly to ensure up to chair with emily and positioning is in place while hospitalized. Rehab Potential: Guarded PT Slitter And Cutter Operator Goals Slitter And Cutter Operator Goals PT Assisted Goals Time Frame: Jan 14, 2020 Establish positioning and emily transfer with nursing to complete. PT Plan Problem List Problem List: ROM, Other (positioning; out of bed) Treatment/Plan Treatment Plan: Continue Plan of Care Treatment Plan: Bed Mobility, Transfers Treatment Duration: Jan 14, 2020 Frequency: 3 times per week Estimated Hrs Per Day: .25 hour per day Patient and/or Family Agrees t: Yes Safety Risks/Education Patient Education: Safety Issues Teaching Recipient: Family Teaching Methods: Discussion Response to Teaching: Verbalize Understanding Time/GCodes Time In: 1525 Time Out: 1545 Total Billed Treatment Time: 20 Total Billed Treatment visit EVM 20 ALFONZO RAGLAND PT Jan 07, 2020 16:01
--- NOTE | 2020-01-07 17:06 | NUR ---
I called Dr. Partida with pt's blood pressure 1st 188/75; second 178/86. Orders were for 10mg hydralazine q4 prn for systolic blood pressure above 180
[2020-01-07] MEDS ORDERED: hydrALAZINE (APESOLINE) 20 MG/ML VIAL IV PRN (17:15)
--- NOTE | 2020-01-07 19:54 | Progress Note - Hospitalist ---
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 Patient was swabbed for COVID and that is pending. Profound dementia noted so unable to obtain details from the patient. Patient is a DNR. Checked meds and labs. I used PPE during exam. Patient very confused. AF now with NSR. Patient with known PAF. Subjective/Events-last exam He is asleep and does not respond to stimulation. He has no family at the bedside at this time. Objective Exam Vital Signs Vital Signs Date Time Temp Pulse Resp B/P (MAP) Pulse Ox O2 Delivery O2 Flow Rate FiO2 01/07/20 16:00 37.2 66 20 188/75 (112) 98 Nasal Cannula 2.00 Capillary Refill : Less Than 3 SecondsLess Than 3 Seconds General Appearance: No Apparent Distress, Chronically ill Respiratory: No Respiratory Distress, Other (coarse breath sounds) Cardiovascular: Regular Rate, Rhythm, No Edema, No Murmur Gastrointestinal: Normal Bowel Sounds, Soft Extremity: Normal Inspection, No Pedal Edema Neurologic/Psychiatric: Other (obtunded, unresponsive) Skin: Warm/Dry, Pallor Results/Procedures Lab Laboratory Tests 01/07/20 05:41 Patient resulted labs reviewed. Assessment/Plan Assessment and Plan Assess & Plan/Chief Complaint UTI -UA consistent with UTI -Urine culture with staph aureus -Sensitive to all but Levaquin -Transition to Keflex Possible thrush -Fluconazole Severe dementia Dysphagia Poor prognosis Advanced age -DNR -Continue diet per family request despite known high risk of aspiration -Would benefit from hospice AFib with RVR -RVR resolved -Cardiology consulted, appreciate assistance BPH -Continue Flomax -Remove epstein and attempt voiding trial DVT Prophylaxis: Lovenox Sepsis, resolved Diagnosis/Problems Diagnosis/Problems (1) Urinary tract infection Status: Acute Qualifiers: Urinary tract infection type: acute cystitis (2) Dysphagia Status: Chronic (3) Dementia Status: Chronic (4) Atrial fibrillation with rapid ventricular response Status: Acute Clinical Quality Measures DVT/VTE Risk/Contraindication: Risk Factor Score Per Nursin RFS Level Per Nursing on Admit: 4+=Very High SANDY CASE MD Jan 07, 2020 19:54
[2020-01-07 20:00] VITALS: BP 155/93
[2020-01-07] MEDS: CEPHALEXIN 250 MG/5 ML 100 ML (KEFLEX) SUSP PO SCH (20:45)
[2020-01-07] MEDS ORDERED: LATANOPROST 0.005% (XALATAN) OPHTH SOLN 2.5 ML OU SCH (21:00)
[2020-01-08] VITALS: BP 162/85
[2020-01-08 04:30] VITALS: BP 141/83
[2020-01-08] MEDS: NS IV 1000 ML 1,000 ML IV SCH ×2 (04:56→09:35)
[2020-01-08] MEDS: GENTAMICIN 0.3% OPHTH SOLN 5 ML OU SCH ×3 (04:56→14:06)
[2020-01-08] MEDS: ENOXAPARIN 80 MG/0.8 ML (LOVENOX) SYR SC SCH (04:56)
[2020-01-08 06:17] LABS: BASOPHILS % (AUTO) 0 % (0-10); EOSINOPHILS # (AUTO) 0.3 10^3/uL (0.0-0.3); EOSINOPHILS % (AUTO) 5 % (0-10); HEMATOCRIT 36 % (40-54); LYMPHOCYTES # (AUTO) 1.3 X 10^3 (1.0-4.0); LYMPHOCYTES % (AUTO) 22 % (12-44); MEAN CORPUSCULAR HEMOGLOBIN 29 PG (25-34); MEAN CORPUSCULAR HGB CONC 34 G/DL (32-36); MEAN CORPUSCULAR VOLUME 86 FL (80-99); MEAN PLATELET VOLUME 9.2 FL (7.4-10.4); MONOCYTES # (AUTO) 0.6 X 10^3 (0.0-1.0); MONOCYTES % (AUTO) 9 % (0-12); NEUTROPHILS # (AUTO) 3.8 X 10^3 (1.8-7.8); NEUTROPHILS % (AUTO) 64 % (42-75); PLATELET COUNT 115 10^3/uL (130-400); RED CELL DISTRIBUTION WIDTH 14.9 % (10.0-14.5)
[2020-01-08 06:34] LABS: BUN/CREATININE RATIO 8; CALCIUM 7.7 MG/DL (8.5-10.1); CARBON DIOXIDE 24 MMOL/L (21-32); CHLORIDE 110 MMOL/L (98-107); GFR ESTIMATED > 60; GLUCOSE 95 MG/DL (70-105); POTASSIUM 3.7 MMOL/L (3.6-5.0); SODIUM 142 MMOL/L (135-145)
[2020-01-08 08:00] VITALS: BP 140/92
--- NOTE | 2020-01-08 08:55 | Discharge Inst-Skilled Nursing ---
Discharge Inst-Skilled NF Reconcile Patient Problems Problems Reviewed?: Yes Patient Instructions Patient Problems: severe dementia, dysphagia, debility Consult/Follow Up/Orders Follow Up Appt.: next half-way rounds Skilled NF Admit to: [facility] Certification (SNF) I certify that SNF services are required to be given on an inpatient basis because of the above named patient's need for care home care on a continuing basis for the conditions(s) for which he/she was receiving inpatient hospital services prior to his/her transfer to the SNF. Halfway Facility Order: Nursing Services, Field Investigator-Evaluate & Treat, Physical Therapy-Evaluate & Treat, Speech Language-Evaluate & Treat Oxygen Delivery Method: Nasal Cannula Discharge Diet: Other Diet (dysphagia diet with thin liquids, upright for all meals with assistance) Resuscitation Status: Do Not Resuscitate New & Resume Previous Orders Ling Case Jan 08, 2020 08:53 LING CASE MD Jan 08, 2020 08:55
[2020-01-08] MEDS ORDERED: CEPH250S PO (08:59)
[2020-01-08] MEDS ORDERED: FLUC100T6 PO (08:59)
[2020-01-08] MEDS ORDERED: fluCOnazole (DIFLUCAN) 10MG/ML 35ML BTL PO SCH (09:00)
[2020-01-08] MEDS ORDERED: fluCOnazole (DIFLUCAN) 100 MG TAB PO SCH (09:00)
[2020-01-08] MEDS ORDERED: DORZOLAMIDE 2% 10 ML BTL (TRUSOPT) OU SCH ×2 (09:00→13:45)
[2020-01-08] MEDS ORDERED: TAMSULOSIN 0.4 MG (FLOMAX) CAP PO SCH (09:00)
[2020-01-08] MEDS ORDERED: NON-FORMULARY MEDICATION 1 EA EA (Dorzolamide HCl/Pf (Dorzolamide 2% Eye Drop) 1 DROP) OU SCH (09:00)
--- NOTE | 2020-01-08 09:18 | Physical Therapy Daily Note ---
PT Daily Note-Current Subjective No verbalization. Eyes closed throughout treatment. Mental Status Patient Orientation: Unable to Assess (dementia noted; no communication) Attachments: IV Transfers SCALE: Activities may be completed with or without assistive devices. 6-Cievopyxbr-eeqwrol completes the activity by him/herself with no assistance from a helper. 5-Set-up or Clean-up Assistance-helper sets up or cleans up; patient completes activity. [place] assists only prior to or following the activity. 4-Supervision or Touching Assistance-helper provides verbal cues and/or touching/steadying and/or contact guard assistance as patient completes activity. Assistance may be provided throughout the activity or intermittently. 3-Partial/Moderate Assistance-helper does LESS THAN HALF the effort. [place] lifts, holds or supports trunk or limbs, but provides less than half the effort. 2-Substantial/Maximal Assistance-helper does MORE THAN HALF the effort. [place] lifts or holds trunk or limbs and provides more than half the effort. 0-Hxwknuapa-rixjsl does ALL the effort. Patient does none of the effort to complete the activity. Or, the assistance of 2 or more helpers is required for the patient to complete the activity. If activity was not attempted, code reason: 7-Patient Refused. 9-Not Applicable-not attempted and the patient did not perform the activity before the current illness, exacerbation or injury. 10-Not Attempted due to Environmental Limitations-(lack of equipment, weather restraints, etc.). 88-Not Attempted due to Medical Conditions or Safety Concerns. Roll Left & Right (QC): 1 Jen transfer to the chair. Up in chair with legs elevated (heels elevated) and head reclined. Positioned comfortably. Dependent for all rolling, transfering and positioning. Weight Bearing Right Lower Extremity: Right Weight Bearing/Tolerated Left Lower Extremity: Left Weight Bearing/Tolerated Gait Training Does the Patient Walk?: No and Walking Goal NOT indicated Treatments Rolling side to side to cleanse billie area and apply clean and dry depend. Transfer to the chair via jen. Pt positioned as noted above. Applied chair alarm for safety. Nurse tech present post treatment. Informed her of chair alarm. Informed her to return pt to bed . She was planning to feed him breakfast and was with the patient when this PT left the room. All needs met. Assessment Tolerated transfer well. no active participation from patient. Nurse tech present post treatment to continue to care for patient as needed. Will follow 1-2 more visits to ensure transfers and positioning are taking place. PT Snf Goals Rectifying Operator Goals PT Rectifying Operator Goals Time Frame: Jan 14, 2020 PT Plan Problem List Problem List: ROM, Other (transfer/positioning) Treatment/Plan Treatment Plan: Continue Plan of Care Treatment Plan: Bed Mobility, Transfers Treatment Duration: Jan 14, 2020 Frequency: 3 times per week Estimated Hrs Per Day: .25 hour per day Patient and/or Family Agrees t: Yes Time/GCodes Time In: 751 Time Out: 815 Total Billed Treatment Time: 24 Total Billed Treatment visit FA 24 ALFONZO RAGLAND PT Jan 08, 2020 09:18
[2020-01-08] MEDS: CEPHALEXIN 250 MG/5 ML 100 ML (KEFLEX) SUSP PO SCH ×2 (09:34→14:06)
[2020-01-08] MEDS ORDERED: RELABEL FOR HOME USE MC SCH ×4 (10:45→11:30)
[2020-01-08 12:00] VITALS: BP 136/58
--- NOTE | 2020-01-08 12:48 | NUR ---
CM/SS finalized discharge. Plan: Patient will discharge to [facility] with cotton picker operator time set for 3:30 p.m. today 01/07. Patient will be transported over in his Broda chair. CM/SS spoke with the patient's daughter Georgette who requested a late cotton picker operator time from facility due to visiting patient. CM/SS contacted Sapna from the facility. She states they can do a 3:30 cotton picker operator time. Georgette verbalized understanding and agreed to plan. CM/SS faxed finalized discharge orders to Sapna at the facility. The physician also put in an order for straight cath daily or PRN. CM/SS faxed order to facility. No further needs at this time.
[2020-01-08] MEDS ORDERED: CEPHALEXIN 250 MG/5 ML 100 ML (KEFLEX) SUSP PO SCH (13:45)
[2020-01-08] MEDS ORDERED: GENTAMICIN 0.3% OPHTH SOLN 5 ML OU SCH (13:45)
[2020-01-08] MEDS ORDERED: LATANOPROST 0.005% (XALATAN) OPHTH SOLN 2.5 ML OU SCH (13:45)
--- NOTE | 2020-01-08 15:35 | NUR ---
pt's daughter called and refused to let pt be discharged with out orders placed on chart for discharge. while trying to get daughter to right person to file complaint she hung up on this nurse.
[2020-01-08 16:05] VITALS: BP 138/58
--- NOTE | 2020-01-08 16:34 | NUR ---
GERRI/ERI received call from patient's daughter Georgette in regards to complaints for discharge. She states that she was notified from her sister that the patient had a sore on his toe. She reports she talked with multiple people on the floor but was not getting the answers she needed. Georgette reports she attempted to also call patient advocate, the physician, and administration without luck. Georgette states her three concerns are: Wound on his toe, Breathing treatments, and needing PRN oxygen. If these were not addressed she would fill out the Medicare Notice and appeal. GERRI/ERI verbalized understanding and discussed her concerns. GERRI/ERI contacted the physician and relayed concerns. He verbalized understanding and put in orders for breathing treatment. GERRI/ERI spoke with the Nurse who put in orders for wound care and PRN oxygen. GERRI/ERI faxed new orders to [facility]. GERRI/SS contacted Georgette to discuss new orders. She verbalized thanks and stated she would be fine with discharge. GERRI/SS contacted Sapna from [facility] to inform her of discussion. She verbalized understanding. No further needs at this time.
== END 2020-01-08 16:05 | DRG 872 ==
LOC: EDUNIT# 12:50 → ER 12:52 → ICU 15:24 → 4TH 01-05 18:03
PROVIDERS: ADMIT Family Medicine; ATTEND Internal Medicine
DX: A41.01 Sepsis due to Methicillin susceptible Staphylococcus aureus (principal); N39.0 Urinary tract infection, site not specified; F03.91 Unspecified dementia, unspecified severity, with behavioral disturbance; B37.0 Candidal stomatitis; R65.20 Severe sepsis without septic shock; I48.0 Paroxysmal atrial fibrillation; I10 Essential (primary) hypertension; R13.10 Dysphagia, unspecified; Z66 Do not resuscitate; K21.9 Gastro-esophageal reflux disease without esophagitis; K59.09 Other constipation; R26.81 Unsteadiness on feet; Z91.81 History of falling; F32.9 Major depressive disorder, single episode, unspecified; D64.9 Anemia, unspecified; D69.6 Thrombocytopenia, unspecified; N40.0 Benign prostatic hyperplasia without lower urinary tract symptoms; Z95.5 Presence of coronary angioplasty implant and graft; Z20.828 Contact with and (suspected) exposure to other viral communicable diseases
CPT/HCPCS: 36415; 51701; 51702; 71045; 80048; 80053; 81000; 83605; 83735; 83880; 84100; 84145; 85007; 85025; 85027; 85610; 85730; 87040; 87077; 87081; 87088; 87186; 87635; 93005; 94640; 96361; 96365; 96375

== ENCOUNTER → 2020-01-14 | Outpatient (CLI) | payer MEDICARE ==
[~2020-01-14] MED LIST changes: +FLUC100T6 PO; +LATA2.5D5 OU; +LATA7.5D OU; +TMSL.4C PO
== END ==
LOC: WOUNDCARE 14:06
PROVIDERS: ATTEND Surgery
DX: L97.514 Non-pressure chronic ulcer of other part of right foot with necrosis of bone (principal); I70.245 Atherosclerosis of native arteries of left leg with ulceration of other part of foot; F03.90 Unspecified dementia, unspecified severity, without behavioral disturbance, psychotic disturbance, mood disturbance, and anxiety

== ENCOUNTER → 2020-01-24 | Outpatient (CLI) | payer MEDICARE ==
[~2020-01-24] MED LIST changes: +DORZ1DRO7 OU
== END ==
LOC: WOUNDCARE 14:33
PROVIDERS: ATTEND Surgery
DX: L97.524 Non-pressure chronic ulcer of other part of left foot with necrosis of bone (principal); I70.235 Atherosclerosis of native arteries of right leg with ulceration of other part of foot; F03.90 Unspecified dementia, unspecified severity, without behavioral disturbance, psychotic disturbance, mood disturbance, and anxiety; I96 Gangrene, not elsewhere classified; U07.1 COVID-19

== ENCOUNTER 2020-02-02 18:08 | Inpatient (IN) | payer MEDICARE ==
[~2020-02-02] VITALS: Ht 177 cm; Wt 71.4 kg
[2020-02-02] VITALS (9 sets, daily range): BP systolic 90–136; BP diastolic 39–97
[~2020-02-02 18:08] MED LIST changes: -DORZ1DRO7 OU
[2020-02-02] MEDS ORDERED: NS IV 1000 ML 1,000 ML IV SCH (18:24)
[2020-02-02] MEDS ORDERED: ACETAMINOPHEN 650 MG SUPP (TYLENOL) ONE (18:38)
[2020-02-02] MEDS ORDERED: ACETAMINOPHEN 650 MG SUPP (TYLENOL) PR ONE (18:45)
[2020-02-02 19:03] LABS: BASOPHILS % (AUTO) 0 % (0-10); EOSINOPHILS # (AUTO) 0.1 10^3/uL (0.0-0.3); EOSINOPHILS % (AUTO) 1 % (0-10); HEMATOCRIT 34 % (40-54); LYMPHOCYTES # (AUTO) 0.7 X 10^3 (1.0-4.0); LYMPHOCYTES % (AUTO) 9 % (12-44); MEAN CORPUSCULAR HEMOGLOBIN 29 PG (25-34); MEAN CORPUSCULAR HGB CONC 33 G/DL (32-36); MEAN CORPUSCULAR VOLUME 89 FL (80-99); MEAN PLATELET VOLUME 9.2 FL (7.4-10.4); MONOCYTES # (AUTO) 0.7 X 10^3 (0.0-1.0); MONOCYTES % (AUTO) 10 % (0-12); NEUTROPHILS # (AUTO) 5.7 X 10^3 (1.8-7.8); NEUTROPHILS % (AUTO) 79 % (42-75); PLATELET COUNT 99 10^3/uL (130-400); WHITE BLOOD COUNT 7.1 10^3/uL (4.3-11.0)
[2020-02-02 19:11] LABS: BILIRUBIN,URINE NEGATIVE (NEGATIVE); CLARITY,URINE CLOUDY; COLOR,URINE YELLOW; GLUCOSE, URINE (UA) NEGATIVE (NEGATIVE); KETONES,URINE TRACE (NEGATIVE); LEUKOCYTE ESTERASE ,URINE 3+ (NEGATIVE); NITRITE,URINE POSITIVE (NEGATIVE); PROTEIN,URINE TRACE (NEGATIVE)
[2020-02-02 19:11] LABS: ALBUMIN 3.3 GM/DL (3.2-4.5); POTASSIUM 4.1 MMOL/L (3.6-5.0)
[2020-02-02 19:12] LABS: CALCIUM 7.8 MG/DL (8.5-10.1)
[2020-02-02 19:13] LABS: TOTAL PROTEIN 5.9 GM/DL (6.4-8.2)
[2020-02-02 19:14] LABS: INR 1.1 (0.8-1.4); PROTHROMBIN TIME PATIENT 14.2 SEC (12.2-14.7)
[2020-02-02 19:14] LABS: BACTERIA,URINE MODERATE /HPF; RBC,URINE 0-2 /HPF; SQUAMOUS EPITHELIAL CELL,UR RARE /HPF; WBC,URINE 50-100 /HPF
[2020-02-02 19:15] LABS: BILIRUBIN,TOTAL 0.3 MG/DL (0.1-1.0)
[2020-02-02 19:17] LABS: CREATININE SERUM 1.33 MG/DL (0.60-1.30)
--- NOTE | 2020-02-02 19:18 | ED General ---
General Chief Complaint: Fever-Adult/Adol Stated Complaint: FEVER,COUGH Nursing Triage Note: THE PT ARRIVAL BY EMS. THE PT IS RESPONSIVE TO PAIN ONLY. SKIN IS HOT/DRY. SLIGHT SOB IS NOTED. Nursing Sepsis Screen: No Definite Risk Source of Information: EMS, [facility] Records Exam Limitations: No Limitations History of Present Illness Date Seen by Provider: Feb 02, 2020 Time Seen by Provider: 18:09 Initial Comments This 73 year old male presents to the ER with fever and history of sepsis from UTI. NH staff is suspicious of sepsis again. He has some cough as well noted on exam. NH staff also reported decreased alertness and new "moist" cough. Patient is severely debilitated with decreased cognitive function at baseline. Allergies and Home Medications Allergies Coded Allergies: No Known Drug Allergies (Unverified , 05/08/17) Home Medications Acetaminophen 325 Mg Tablet, 650 MG PO Q4H PRN for PAIN-MILD, (Reported) TAKES 2 (325 MG) TABLETS Acetaminophen 650 Mg Supp.rect, 650 MG RC Q4H PRN for PAIN-MILD (1-4) OR TEMPATURE, (Reported) Albuterol Sulfate 2.5 Mg/3 Ml Vial.neb, 2.5 MG IH Q8H PRN for SHORTNESS OF BREATH, (Reported) Cephalexin 250 Mg/5 Ml Susp.recon, 0 MG PO QID Prescribed by: SANDY CASE on 01/08/20858 Dorzolamide HCl/Pf 10 Ml Drops, 1 DROP OU DAILY, (Reported) ALLOW 5 MINUTES BETWEEN EYE MEDS Fluconazole 100 Mg Tablet, 200 MG PO DAILY Prescribed by: SANDY CASE on 01/08/20858 Ketoconazole 15 Gm Cream..g., 1 APPLIC TP DAILY, (Reported) APPLY TO BOTH FEET FOR TINEA Latanoprost 2.5 Ml Drops, 1 DROP OU HS, (Reported) Ondansetron HCl 4 Mg Tablet, 4 MG PO Q6H PRN for NAUSEA/VOMITING-1ST LINE, (Reported) Polyethylene Glycol 3350 17 Gm Powd.pack, 17 GM PO DAILY, (Reported) Polyethylene Glycol 3350 17 Gm Powd.pack, 17 GM PO BID PRN for CONSTIPATION-2ND LINE, (Reported) Promethazine HCl 25 Mg Supp.rect, 25 MG RC Q6H PRN for NAUSEA/VOMITING-2ND LINE, (Reported) Tamsulosin HCl 0.4 Mg Cap, 0.4 MG PO DAILY, (Reported) Patient Home Medication List Home Medication List Reviewed: Yes Review of Systems Review of Systems Constitutional: see HPI EENTM: no symptoms reported Respiratory: see HPI Cardiovascular: no symptoms reported Gastrointestinal: no symptoms reported Genitourinary: no symptoms reported Musculoskeletal: no symptoms reported Skin: no symptoms reported Psychiatric/Neurological: See HPI Hematologic/Lymphatic: No Symptoms Reported Immunological/Allergic: no symptoms reported Past Bvohdvr-Ffpirz-Huqeso Hx Patient Social History 2nd Hand Smoke Exposure: No Recent Foreign Travel: No Contact w/Someone Who Travel: No Recent Infectious Disease Expo: No Recent Hopitalizations: No Physical Abuse: No Sexual Abuse: No Mistreated: No Fear: No Immunizations Up To Date Tetanus Booster (TDap): Unknown Date of Pneumonia Vaccine: May 08, 2018 Date of Influenza Vaccine: Mar 06, 2019 Past Medical History Surgeries: Yes Cardiac, Coronary Stent Respiratory: Yes (WEARS HOME O2) Currently Using CPAP: No Currently Using BIPAP: No Cardiac: Yes (STENT PLACEMENT; CHRONIC ATRIAL FIBRILLATION) Atrial Fibrillation, Hypertension Neurological: Yes (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; CONGINITIVE COMMUNICATION D EFICIT) Dementia Genitourinary: Yes (current UTI) Gastrointestinal: Yes (DYSPHAGIA) Gastroesophageal Reflux, Chronic Constipation Musculoskeletal: Yes (UNSTEADY GAIT, FALLS, GENERALIZED WEAKNESS;CONTRACTURES OF KNEES) Contracture Endocrine: Yes (hypo mag/phos/K+) HEENT: Yes Dysphagia, Glaucoma Cancer: No Psychosocial: Yes (DEMENTIA WITH BEHAVIOR DISTURBANCE AND PSYCHOSIS/DELUSIONS) Sleep Difficulties, Depression Integumentary: Yes (TINEA PEDIS) Blood Disorders: Yes (ANEMIA) Family Medical History Patient reports no known family medical history. No Pertinent Family Hx ELECTROLYE IMBALANCES Physical Exam-Suspected Sepsis Physical Exam Vital Signs Vital Signs - First Documented 02/02/20 02/02/20 02/02/20 18:58 19:06 21:54 Temp 38.7 Pulse 73 Resp 20 B/P (MAP) 136/97 (110) Pulse Ox 99 O2 Delivery Nasal Cannula O2 Flow Rate 2.00 Capillary Refill : Less Than 3 Seconds Blood Pressure Mean: 110 Height, Weight, BMI Height: 5'7.00" Weight: 173lbs. 6.0oz. 78.214780yd; 24.00 BMI Method:Estimated General Appearance: No Apparent Distress, WD/WN HEENT: Normal ENT Inspection, Pharynx Normal Neck: Normal Inspection Respiratory: Lungs Clear, Normal Breath Sounds, No Accessory Muscle Use, Crack les (Few basilar crackles), Decreased Breath Sounds, Rhonci (Few) Cardiovascular: Regular Rate, Rhythm, No Edema, No Murmur Gastrointestinal: Normal Bowel Sounds, Non Tender, Soft Genital/Rectal: Other (Full distended scrotum suggestive of hernia) Extremity: Normal Inspection, No Pedal Edema Neurologic/Psychiatric: Other (mu says extremities independently. Responds to pain and other stimulus. Has no meaningful communication and does not answer questions.) Skin: normal color, warm/dry, other (febrile to the touch) Focused Exam Lactate Level 02/02/20 18:40: Lactic Acid Level 1.55 Lactic Acid Level Procedures/Interventions Suture Size: 4-0, 5-0 Progress/Results/Core Measures Suspected Sepsis Recent Fever Within 48 Hours: No Infection Criteria Present: None New/Unexplained Altered Menta: No Sepsis Screen: No Definite Risk SIRS Temperature: Pulse: 73 Respiratory Rate: 20 Laboratory Tests 02/02/20 18:40: White Blood Count 7.1 Blood Pressure 136 /97 Mean: 110 02/02/20 18:40: Lactic Acid Level 1.55 Laboratory Tests 02/02/20 18:40: Creatinine 1.33H, INR Comment 1.1, Platelet Count 99L, Total Bilirubin 0.3 Results/Orders Lab Results Laboratory Tests Test 02/02/20 18:20 02/02/20 18:40 02/02/20 18:45 Range/Units Urine Color YELLOW Urine Clarity CLOUDY Urine pH 6.0 5-9 Urine Specific [place] 1.020 1.016-1.022 Urine Protein TRACE H NEGATIVE Urine Glucose (UA) NEGATIVE NEGATIVE Urine Ketones TRACE H NEGATIVE Urine Nitrite POSITIVE H NEGATIVE Urine Bilirubin NEGATIVE NEGATIVE Urine Urobilinogen 0.2 < = 1.0 MG/DL Urine Leukocyte Esterase 3+ H NEGATIVE Urine RBC (Auto) 1+ H NEGATIVE Urine RBC 0-2 /HPF Urine WBC 50-100 H /HPF Urine Squamous Epithelial Cells RARE /HPF Urine Crystals NONE /LPF Urine Bacteria MODERATE H /HPF Urine Casts NONE /LPF Urine Mucus MODERATE H /LPF Urine Culture Indicated CULTURE PENDING White Blood Count 7.1 4.3-11.0 10^3/uL Red Blood Count 3.75 L 4.35-5.85 10^6/uL Hemoglobin 11.0 L 13.3-17.7 G/DL Hematocrit 34 L 40-54 % Mean Corpuscular Volume 89 80-99 FL Mean Corpuscular Hemoglobin 29 25-34 PG Mean Corpuscular Hemoglobin Concent 33 32-36 G/DL Red Cell Distribution Width 15.5 H 10.0-14.5 % Platelet Count 99 L 130-400 10^3/uL Mean Platelet Volume 9.2 7.4-10.4 FL Neutrophils (%) (Auto) 79 H 42-75 % Lymphocytes (%) (Auto) 9 L 12-44 % Monocytes (%) (Auto) 10 0-12 % Eosinophils (%) (Auto) 1 0-10 % Basophils (%) (Auto) 0 0-10 % Neutrophils # (Auto) 5.7 1.8-7.8 X 10^3 Lymphocytes # (Auto) 0.7 L 1.0-4.0 X 10^3 Monocytes # (Auto) 0.7 0.0-1.0 X 10^3 Eosinophils # (Auto) 0.1 0.0-0.3 10^3/uL Basophils # (Auto) 0.0 0.0-0.1 10^3/uL Prothrombin Time 14.2 12.2-14.7 SEC INR Comment 1.1 0.8-1.4 Activated Partial Thromboplast Time 22 L 24-35 SEC Sodium Level 136 135-145 MMOL/L Potassium Level 4.1 3.6-5.0 MMOL/L Chloride Level 104 98-107 MMOL/L Carbon Dioxide Level 21 21-32 MMOL/L Anion Gap 11 5-14 MMOL/L Blood Urea Nitrogen 19 H 7-18 MG/DL Creatinine 1.33 H 0.60-1.30 MG/DL Estimat Glomerular Filtration Rate 51 BUN/Creatinine Ratio 14 Glucose Level 157 H 70-105 MG/DL Lactic Acid Level 1.55 0.50-2.00 MMOL/L Calcium Level 7.8 L 8.5-10.1 MG/DL Corrected Calcium 8.4 L 8.5-10.1 MG/DL Total Bilirubin 0.3 0.1-1.0 MG/DL Aspartate Amino Transf (AST/SGOT) 15 5-34 U/L Alanine Aminotransferase (ALT/SGPT) 8 0-55 U/L Alkaline Phosphatase 94 40-136 U/L Lactate Dehydrogenase 150 125-220 U/L C-Reactive Protein High Sensitivity 1.40 H 0.00-0.50 MG/DL Total Protein 5.9 L 6.4-8.2 GM/DL Albumin 3.3 3.2-4.5 GM/DL Procalcitonin 0.06 <0.10 NG/ML Coronavirus 2019 (KASEY) Positive H Negative Micro Results Microbiology 02/02/20 Influenza Types A,B Antigen (KARISSA) - Final, Complete My Orders Orders - MARIO ALBERTO CARRILLO MD Cbc With Automated Diff (02/02/20 18:24) Comprehensive Metabolic Panel (02/02/20 18:24) Blood Culture (02/02/20 18:24) Sputum Culture (02/02/20 18:24) Urinalysis (02/02/20 18:24) Urine Culture (02/02/20 18:24) Protime With Inr (02/02/20 18:24) Partial Thromboplastin Time (02/02/20 18:24) Ed Iv/Invasive Line Start (02/02/20 18:24) Ed Iv/Invasive Line Start (02/02/20 18:24) Vital Signs Adult Sepsis Patie Q15M (02/02/20 18:24) O2 (02/02/20 18:24) Remove Rings In Anticipation O (02/02/20 18:24) Lactic Acid Analyzer (02/02/20 18:24) Ns Iv 1000 Ml (Sodium Chloride 0.9%) (02/02/20 18:24) Procalcitonin (Pct) (02/02/20 18:24) Hs C Reactive Protein (02/02/20 18:24) LDH (02/02/20 18:24) Influenza A And B Antigens (02/02/20 18:24) Covid 19 Inhouse Test (02/02/20 18:24) Acetaminophen Suppository (Tylenol Suppo (02/02/20 18:45) Acetaminophen Suppository (Tylenol Suppo (02/02/20 18:38) Chest 1 View, Ap/Pa Only (02/02/20 ) Ceftriaxone For Iv Use (Rocephin For I (02/02/20 20:00) Ekg Tracing (02/02/20 20:07) Monitor-Rhythm Ecg Trace Only (02/02/20 20:07) Dexamethasone Injection (Decadron Inje (02/02/20 20:15) Medications Given in ED Current Medications Medications Dose Ordered Sig/Kelly Route Start Time Stop Time Status Last Admin Dose Admin Acetaminophen 650 mg ONCE ONCE NV 02/02/20 18:45 02/02/20 18:46 DC 02/02/20 20:36 650 MG Acetaminophen 650 mg STK-MED ONCE .ROUTE 02/02/20 18:38 02/02/20 18:42 DC 02/02/20 19:15 650 MG Ceftriaxone Sodium 1000 mg/ Sterile Water 10 ml @ 200 mls/hr ONCE ONCE IV 02/02/20 20:00 02/02/20 20:02 DC 02/02/20 20:37 200 MLS/HR Dexamethasone Sodium Phosphate 6 mg ONCE ONCE IV 02/02/20 20:15 02/02/20 20:16 DC 02/02/20 20:43 6 MG Vital Signs/I&O 02/02/20 02/02/20 02/02/20 02/02/20 18:58 19:06 19:07 21:07 Temp 38.7 38.7 Pulse 73 73 79 Resp 20 20 20 B/P (MAP) 136/97 (110) 136/97 (110) 127/93 (104) Pulse Ox 99 94 98 O2 Flow Rate 2.00 02/02/20 02/02/20 02/02/20 02/02/20 21:39 21:54 22:00 22:15 Pulse 79 63 53 52 Resp 20 16 18 12 B/P (MAP) 127/93 113/58 (76) 108/61 (77) 125/58 (80) Pulse Ox 98 97 97 98 O2 Delivery Nasal Cannula Nasal Cannula Nasal Cannula O2 Flow Rate 2.00 2.00 2.00 Capillary Refill : Less Than 3 Seconds Blood Pressure Mean: 110 Progress Note : Time: 20:25 Progress Note Rapid COVID screen positive. Patient also has UTI. Initial therapies in the ER will include Rocephin and Dexamethasone as well as a liter of IV NS. Vancomycin will be added after admission. Tylenol was given rectally for fever. Case was discussed with patient's daughter Georgette [phone]. She would like him DNR/DNI but treated aggressively for now. She informed this provider that he has a tendency to go into A-fib RVR and does not tolerate Cardizem well. She recommends using Amiodarone. Dr. Rico was consulted and recommended calling him if tachycardic so he can manage the A-fib and tachycardia. Patient was formerly on Eliquis according to the DC chart but it does not appear he has received recent doses. We will give Lovenox therapeutic doses for now per discussion with Dr. Lyons. Although patient may be septic, we are going to be careful not to flood him excessively with fluid boluses due to his COVID-19 positive status. Diagnostic Imaging Diagonstic Imaging: Xray Plain Films/CT/US/NM/MRI: chest Comments Chest x-ray viewed by me. Report not yet available. No obvious infiltrate to suggest consolidated pneumonia. Departure Communication (Admissions) Time/Spoke to Admitting Phy: 20:09 Dr. Serena Rico Impression Primary Impression: COVID-19 Additional Impressions: Sepsis Qualified Codes: A41.9 - Sepsis, unspecified organism UTI (urinary tract infection) Qualified Codes: N39.0 - Urinary tract infection, site not specified CITLALY (acute kidney injury) Disposition: 09 ADMITTED INPATIENT Condition: Improved Admissions Decision to Admit Reason: Admit from ER (General) Decision to Admit/Date: Feb 02, 2020 Time/Decision to Admit Time: 19:45 Departure-Patient Inst. Referrals: FÁTIMA MONTANA MD (PCP/Family) Primary Care Physician Copy Copies To 1: FÁTIMA MONTANA MD, JOSHUA T MD Feb 02, 2020 19:18
[2020-02-02] MEDS ORDERED: cefTRIAXone FOR IV USE 1,000 MG in WATER (STERILE) FOR INJECTION 10 ML IV ONE (20:00)
--- NOTE | 2020-02-02 20:33 | Diagnostic Imaging Report ---
INDICATION: Sepsis FINDINGS: The lungs show no focal consolidation. The heart size and vascularity normal. IMPRESSION: No acute appearing abnormality. Dictated by: Dictated on workstation # [id number]
[2020-02-02] MEDS ORDERED: ENOXAPARIN 80 MG/0.8 ML (LOVENOX) SYR SC SCH (21:43)
[2020-02-02] MEDS ORDERED: ACETAMINOPHEN 650 MG SUPP (TYLENOL) PR PRN (21:45)
[2020-02-02] MEDS ORDERED: ONDANSETRON 4 MG/2 ML (SDV) Z0FRAN IV PRN (21:45)
[2020-02-02] MEDS ORDERED: VANCOMYCIN 1500 MG/NS 500 ML IVPB IV ONE ×2 (21:45)
[2020-02-02] MEDS ORDERED: VANCOMYCIN 1000 MG/VIAL ONE (22:25)
[2020-02-02] MEDS ORDERED: NS IV 500 ML 500 ML ONE (22:26)
[2020-02-02] MEDS ORDERED: VANCOMYCIN 500 MG/VIAL IV ONE (22:26)
[2020-02-02] MEDS: LACTATED RINGERS 1,000 ML IV SCH (22:48)
--- NOTE | 2020-02-02 23:32 | NUR ---
NOTIFIED DR GOULD OF PT HEART RATE MAINTAINING LOW TO MID 40'S. OTHER VSS. WILL CONTINUE TO MONITOR.
--- NOTE | 2020-02-02 23:58 | NUR ---
UPDATED PT DAUGHTER ON PT STATUS.
[2020-02-03] VITALS (21 sets, daily range): BP systolic 92–148; BP diastolic 39–89
[2020-02-03 02:51] LABS: BASOPHILS % (AUTO) 0 % (0-10); EOSINOPHILS % (AUTO) 0 % (0-10); HEMATOCRIT 32 % (40-54); HEMOGLOBIN 10.4 G/DL (13.3-17.7); LYMPHOCYTES # (AUTO) 0.6 X 10^3 (1.0-4.0); LYMPHOCYTES % (AUTO) 11 % (12-44); MEAN CORPUSCULAR HEMOGLOBIN 29 PG (25-34); MEAN CORPUSCULAR HGB CONC 33 G/DL (32-36); MEAN CORPUSCULAR VOLUME 90 FL (80-99); MEAN PLATELET VOLUME 9.1 FL (7.4-10.4); MONOCYTES # (AUTO) 0.2 X 10^3 (0.0-1.0); MONOCYTES % (AUTO) 4 % (0-12); NEUTROPHILS # (AUTO) 4.4 X 10^3 (1.8-7.8); NEUTROPHILS % (AUTO) 85 % (42-75); PLATELET COUNT 91 10^3/uL (130-400); WHITE BLOOD COUNT 5.2 10^3/uL (4.3-11.0)
[2020-02-03 03:06] LABS: ALANINE AMINOTRANSFERASE 9 U/L (0-55); ALBUMIN 2.9 GM/DL (3.2-4.5); ALKALINE PHOSPHATASE 79 U/L (40-136); BILIRUBIN,TOTAL 0.2 MG/DL (0.1-1.0); BUN/CREATININE RATIO 18; CALCIUM 7.4 MG/DL (8.5-10.1); CARBON DIOXIDE 19 MMOL/L (21-32); CHLORIDE 114 MMOL/L (98-107); CREATININE SERUM 0.96 MG/DL (0.60-1.30); GFR ESTIMATED > 60; GLUCOSE 126 MG/DL (70-105); MAGNESIUM 1.7 MG/DL (1.6-2.4); PHOSPHORUS 3.2 MG/DL (2.3-4.7); SODIUM 142 MMOL/L (135-145); TOTAL PROTEIN 5.2 GM/DL (6.4-8.2)
--- NOTE | 2020-02-03 04:30 | Pulmonary Consultation ---
History of Present Illness History of Present Illness Date Seen by Provider: Feb 03, 2020 Time Seen by Provider: 04:30 Date of Admission History of Present Illness 73 year old male poor historian from [facility] with history of debility, dementia, and sepsis from UTI presented to the ER with fever worsening lethargy and cough. Pt was dx with COVID in the ED. He was admitted to ICU for close observation. Allergies and Home Medications Allergies Coded Allergies: No Known Drug Allergies (Unverified , 05/08/17) Home Medications Acetaminophen 325 Mg Tablet, 650 MG PO Q4H PRN for PAIN-MILD, (Reported) TAKES 2 (325 MG) TABLETS Acetaminophen 650 Mg Supp.rect, 650 MG RC Q4H PRN for PAIN-MILD (1-4) OR TEMPATURE, (Reported) Albuterol Sulfate 2.5 Mg/3 Ml Vial.neb, 2.5 MG IH Q8H PRN for SHORTNESS OF BREATH, (Reported) Cephalexin 250 Mg/5 Ml Susp.recon, 0 MG PO QID Prescribed by: SANDY CASE on 01/08/20858 Dorzolamide HCl/Pf 10 Ml Drops, 1 DROP OU DAILY, (Reported) ALLOW 5 MINUTES BETWEEN EYE MEDS Fluconazole 100 Mg Tablet, 200 MG PO DAILY Prescribed by: SANDY CASE on 01/08/20858 Ketoconazole 15 Gm Cream..g., 1 APPLIC TP DAILY, (Reported) APPLY TO BOTH FEET FOR TINEA Latanoprost 2.5 Ml Drops, 1 DROP OU HS, (Reported) Ondansetron HCl 4 Mg Tablet, 4 MG PO Q6H PRN for NAUSEA/VOMITING-1ST LINE, (Reported) Polyethylene Glycol 3350 17 Gm Powd.pack, 17 GM PO DAILY, (Reported) Polyethylene Glycol 3350 17 Gm Powd.pack, 17 GM PO BID PRN for CONSTIPATION-2ND LINE, (Reported) Promethazine HCl 25 Mg Supp.rect, 25 MG RC Q6H PRN for NAUSEA/VOMITING-2ND LINE, (Reported) Tamsulosin HCl 0.4 Mg Cap, 0.4 MG PO DAILY, (Reported) Past Uxbzhmm-Huvmvt-Fbpllt Hx Patient Social History 2nd Hand Smoke Exposure: No Recent Foreign Travel: No Contact w/Someone Who Travel: No Recent Infectious Disease Expo: No Recent Hopitalizations: No Physical Abuse: No Sexual Abuse: No Mistreated: No Fear: No Immunizations Up To Date Tetanus Booster (TDap): Unknown Date of Pneumonia Vaccine: May 08, 2018 Date of Influenza Vaccine: Mar 06, 2019 Past Medical History Surgeries: Yes Cardiac, Coronary Stent Respiratory: Yes (WEARS HOME O2) Currently Using CPAP: No Currently Using BIPAP: No Cardiac: Yes (STENT PLACEMENT; CHRONIC ATRIAL FIBRILLATION) Atrial Fibrillation, Hypertension Neurological: Yes (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; CONGINITIVE COMMUNICATION DEFICIT) Dementia Genitourinary: Yes (current UTI) Gastrointestinal: Yes (DYSPHAGIA) Gastroesophageal Reflux, Chronic Constipation Musculoskeletal: Yes (UNSTEADY GAIT, FALLS, GENERALIZED WEAKNESS;CONTRACTURES OF KNEES) Contracture Endocrine: Yes (hypo mag/phos/K+) HEENT: Yes Dysphagia, Glaucoma Cancer: No Psychosocial: Yes (DEMENTIA WITH BEHAVIOR DISTURBANCE AND PSYCHOSIS/DELUSIONS) Sleep Difficulties, Depression Integumentary: Yes (TINEA PEDIS) Blood Disorders: Yes (ANEMIA) Family Medical History Patient reports no known family medical history. No Pertinent Family Hx ELECTROLYE IMBALANCES Review of Systems Time Seen by Provider: 04:36 Sepsis Event Evaluation Height, Weight, BMI Height: 5'7.00" Weight: 173lbs. 6.0oz. 78.307553ee; 23.42 BMI Method:Estimated Exam Exam Vital Signs Date Time Temp Pulse Resp B/P (MAP) Pulse Ox O2 Delivery O2 Flow Rate FiO2 02/03/20 03:46 94 Nasal Cannula 2.00 02/03/20 02:30 36.7 02/03/20 02:00 43 14 95/40 (58) 95 Nasal Cannula 2.00 02/03/20 01:00 48 16 120/47 (71) 92 Nasal Cannula 2.00 02/03/20 01:00 48 02/03/20 00:00 94 Nasal Cannula 2.00 02/03/20 00:00 43 15 92/39 (56) 92 Nasal Cannula 2.00 02/02/20 23:30 44 18 94/39 (57) 93 Nasal Cannula 2.00 02/02/20 23:00 48 16 110/47 (68) 95 Nasal Cannula 2.00 02/02/20 22:49 36.8 02/02/20 22:45 53 16 108/41 (63) 94 Nasal Cannula 2.00 02/02/20 22:30 44 16 90/42 (58) 96 Nasal Cannula 2.00 02/02/20 22:15 52 12 125/58 (80) 98 Nasal Cannula 2.00 02/02/20 22:00 53 02/02/20 22:00 97 Nasal Cannula 2.00 02/02/20 22:00 53 18 108/61 (77) 97 Nasal Cannula 2.00 02/02/20 21:54 63 16 113/58 (76) 97 Nasal Cannula 2.00 02/02/20 21:39 79 20 127/93 98 02/02/20 21:07 79 20 127/93 (104) 98 02/02/20 19:07 38.7 73 20 136/97 (110) 94 02/02/20 19:06 99 2.00 02/02/20 18:58 38.7 73 20 136/97 (110) I & O 02/03/20 07:00 Intake Total 1815 ml Output Total 900 ml Balance 915 ml Height & Weight Height: 5'7.00" Weight: 173lbs. 6.0oz. 78.376424kc; 23.42 BMI Method:Estimated General Appearance: No Apparent Distress, WD/WN HEENT: Normal ENT Inspection, Pharynx Normal Neck: Normal Inspection Respiratory: Lungs Clear, Normal Breath Sounds, No Accessory Muscle Use, Crackles (Few basilar crackles), Decreased Breath Sounds, Rhonci (Few) Cardiovascular: Regular Rate, Rhythm, No Edema, No Murmur Capillary Refill: Less Than 3 Seconds Extremity: Normal Inspection, No Pedal Edema Neurologic/Psychiatric: Other (mu says extremities independently. Responds to pain and other stimulus. Has no meaningful communication and does not answer questions.) Results Lab Laboratory Tests 02/02/20 18:40 02/03/20 02:30 Assessment/Plan Assessment/Plan COVID + -Remdesivir - RN discussed with daughter who is a hospitalist. Per RN she agrees with Remdesivir -Decadron -convalescent plasma - If ok with daughter -Isolation -Influenza is negative UTI with hx of chronic UTIs -Continue Vanco and Rocephin for now -Await cultures ds Afib proxysmal - currently bradycardia -Cardiology consulted Acute renal failure -Improved Nonanion gapped metabolic acidosis -Monitor Anemia and thrombocytopenia Chronic debility and dementia -From [facility] RADHA CASTAÑEDA DO Feb 03, 2020 04:30
[2020-02-03] MEDS ORDERED: PHARMACY TO DOSE IV SCH (04:45)
[2020-02-03] MEDS ORDERED: REMDESIVIR INJ (FREE STOCK) 200 MG in NS (IVPB) 210 ML IV ONE (04:45)
[2020-02-03] MEDS: MAGNESIUM 1 GM/100 ML IVPB 100 ML IV SCH ×2 (05:00→06:17)
--- NOTE | 2020-02-03 07:35 | NUR ---
CR 0.96; CR CL > 50; WT 73.4 KG; VANCO 1500 MG IV GIVEN LAST NIGHT; CONTINUE WITH VANCO 1000 MG IV Q12H; TROUGH AFTER 3RD DOSE
[2020-02-03] MEDS ORDERED: REMDESIVIR INJ (NON-FORMULARY) 200 MG in NS (IVPB) 210 ML IV NR (08:00)
[2020-02-03] MEDS: PANTOPRAZOLE 40 MG (PROTONIX) VIAL IV SCH (08:36)
[2020-02-03] MEDS: LACTATED RINGERS 1,000 ML IV SCH ×2 (08:39→23:36)
[2020-02-03] MEDS: VANCOMYCIN 1 GM/NS 250 ML IVPB IV SCH ×4 (08:39→23:35)
[2020-02-03] MEDS: ENOXAPARIN 80 MG/0.8 ML (LOVENOX) SYR SC SCH ×2 (11:30→23:35)
--- NOTE | 2020-02-03 16:19 | Consultation-Cardiology ---
HPI-Cardiology Cardiology Consultation: Date of Consultation 02/03/20 Date of Admission Attending Physician Meet Lyons DO Admitting Physician Pravin Proctor MD Consulting Physician Mary GOULD MD HPI: Time Seen by a Provider: 12:00 Chief Complaint: sepsis this is an 85-year-old gentleman with dementia. Resents from the nursing facility due to fever and possible UTI sepsis. Cough. Rapid COVID-19 positive. History is limited. Patient does have history of coronary stent and atrial fibrillation. Review of Systems-Cardiology Review of Systems Constitutional: As described under HPI; No As described under HPI, No no symptoms reported, No chills, No fever, No lightheadedness Eyes: No As described under HPI, No no symptoms reported, No blindness, No blurred vision, No contact lenses, No drainage, No decreased acuity, No foreign body sensation, No pain, No vision change Ears/Nose/Throat: No As described under HPI, No no symptoms reported, No chronic hearing loss, No ear discharge, No ear pain, No nasal drainage, No ulcerations Respiratory: No no symptoms reported; As described under HPI; No As described under HPI; cough; No orthopnea, No shortness of breath, No SOB with excertion Cardiovascular: No no symptoms reported; As described under HPI; No As described under HPI, No chest pain, No edema, No irregular heart rate, No lightheadedness, No palpitations Gastrointestinal: No no symptoms reported, No As described under HPI, No abdomen distended, No abdominal pain, No blood streaked bowels, No constipation, No diarrhea, No nausea, No vomiting, No stool coloration changes Genitourinary: As described under HPI; No burning, No dysuria, No discharge, No frequency, No flank pain, No hematuria, No urgency Skin: No rash, No skin related problems, No ulcerations Psychiatric/Neurological: No anxiety, No depression, No seizure, No focal weakness, No syncope Hematologic: No bleeding abnormalities QRS-Vlhohd-Xquhtz Hx Patient Social History 2nd Hand Smoke Exposure: No Recent Foreign Travel: No Recent Infectious Disease Expo: No Hospitalization with Isolation: Denies Immunizations Up To Date Tetanus Booster (TDap): Unknown Date of Pneumonia Vaccine: May 08, 2018 Date of Influenza Vaccine: Mar 06, 2019 Past Medical History PMH As described under Assessment. Family Medical History Family History: Patient reports no known family medical history. Allergies and Home Medications Allergies Coded Allergies: No Known Drug Allergies (Unverified , 05/08/17) Home Medications Acetaminophen 325 Mg Tablet, 650 MG PO Q4H PRN for PAIN-MILD, (Reported) TAKES 2 (325 MG) TABLETS Acetaminophen 650 Mg Supp.rect, 650 MG RC Q4H PRN for PAIN-MILD (1-4) OR TEMP ATURE, (Reported) Albuterol Sulfate 2.5 Mg/3 Ml Vial.neb, 2.5 MG IH Q8H PRN for SHORTNESS OF RAMSES ATH, (Reported) Cephalexin 250 Mg/5 Ml Susp.recon, 0 MG PO QID Prescribed by: SANDY CASE on 01/08/20858 Dorzolamide HCl/Pf 10 Ml Drops, 1 DROP OU DAILY, (Reported) ALLOW 5 MINUTES BETWEEN EYE MEDS Fluconazole 100 Mg Tablet, 200 MG PO DAILY Prescribed by: SANDY CASE on 01/08/20858 Ketoconazole 15 Gm Cream..g., 1 APPLIC TP DAILY, (Reported) APPLY TO BOTH FEET FOR TINEA Latanoprost 2.5 Ml Drops, 1 DROP OU HS, (Reported) Ondansetron HCl 4 Mg Tablet, 4 MG PO Q6H PRN for NAUSEA/VOMITING-1ST LINE, (Reported) Polyethylene Glycol 3350 17 Gm Powd.pack, 17 GM PO DAILY, (Reported) Polyethylene Glycol 3350 17 Gm Powd.pack, 17 GM PO BID PRN for CONSTIPATION-2ND LINE, (Reported) Promethazine HCl 25 Mg Supp.rect, 25 MG RC Q6H PRN for NAUSEA/VOMITING-2ND LINE, (Reported) Tamsulosin HCl 0.4 Mg Cap, 0.4 MG PO DAILY, (Reported) Patient Home Medication List Home Medication List Reviewed: Yes Physical Exam-Cardiology Physical Exam Vital Signs/I&O 02/03/20 02/03/20 02/03/20 02/03/20 05:00 05:00 06:00 07:00 Temp 36.8 Pulse 54 41 43 Resp 13 14 11 B/P (MAP) 120/89 (99) 94/48 (63) 118/66 (83) Pulse Ox 100 100 100 O2 Delivery Nasal Cannula Nasal Cannula Nasal Cannula O2 Flow Rate 2.00 2.00 2.00 02/03/20 02/03/20 02/03/20 02/03/20 07:00 08:00 08:00 08:00 Temp 36.5 Pulse 44 43 48 Resp 15 16 B/P (MAP) 127/62 (83) Pulse Ox 100 100 100 O2 Delivery Nasal Cannula Nasal Cannula Nasal Cannula O2 Flow Rate 2.00 2.00 2.00 02/03/20 02/03/20 02/03/20 02/03/20 09:00 10:00 11:00 12:00 Pulse 60 56 46 44 Resp 19 28 16 21 B/P (MAP) 142/68 (92) 106/62 (77) 139/64 (89) 127/58 (81) Pulse Ox 100 99 100 100 O2 Delivery Nasal Cannula Nasal Cannula Nasal Cannula Nasal Cannula O2 Flow Rate 2.00 2.00 2.00 2.00 02/03/20 02/03/20 02/03/20 02/03/20 12:25 13:00 14:00 15:00 Pulse 43 47 45 50 Resp 16 12 12 B/P (MAP) 136/57 (83) 120/66 (84) Pulse Ox 100 100 100 O2 Delivery Nasal Cannula Nasal Cannula Nasal Cannula O2 Flow Rate 2.00 2.00 2.00 02/03/20 16:00 Pulse 53 Resp 17 B/P (MAP) 148/76 (100) Pulse Ox 100 O2 Delivery Nasal Cannula O2 Flow Rate 2.00 02/03/20 00:00 Intake Total 1815 ml Output Total 375 ml Balance 1440 ml Capillary Refill : Less Than 3 Seconds Constitutional: appears stated age, AAO x 3; No apparent distress; well- developed, well-nourished HEENT: PERRL; No discharge; hearing is well preserved, oral hygience is good; No ulceration, No xanthelasmas are seen Neck: No carotid bruit; carotid pulses are 2 + bilaterally Respiratory: chest is bilaterally symmetric, lungs clear to auscultation Cardiovascular: regular rate-rhythm, S1 and S2; No diastolic murmur, No systolic murmur Gastrointestinal: soft, audible bowel sounds; No spleenomegaly Rectal: deferred Extremities: normal range of motion, non-tender, normal inspection; No clubbing, No cyanosis; no lower extremity edema bilateral; No significant edema Neurologic/Psychiatric: no motor/sensory deficits, alert, normal mood/affect, power is 5/5 both on sides Skin: normal color, warm/dry, other (febrile to the touch) Data Review Labs Laboratory Tests 02/02/20 18:20: Urine Color YELLOW, Urine Clarity CLOUDY, Urine pH 6.0, Urine Specific [place] 1.020, Urine Protein TRACEH, Urine Glucose (UA) NEGATIVE, Urine Ketones TRACEH, Urine Nitrite POSITIVEH, Urine Bilirubin NEGATIVE, Urine Urobilinogen 0.2, Urine Leukocyte Esterase 3+H, Urine RBC (Auto) 1+H, Urine RBC 0-2, Urine WBC 50-100H, Urine Squamous Epithelial Cells RARE, Urine Crystals NONE, Urine Bacteria MODERATEH, Urine Casts NONE, Urine Mucus MODERATEH, Urine Culture Indicated CULTURE PENDING 02/02/20 18:40: White Blood Count 7.1, Red Blood Count 3.75L, Hemoglobin 11.0L, Hematocrit 34L, Mean Corpuscular Volume 89, Mean Corpuscular Hemoglobin 29, Mean Corpuscular Hemoglobin Concent 33, Red Cell Distribution Width 15.5H, Platelet Count 99L, Mean Platelet Volume 9.2, Neutrophils (%) (Auto) 79H, Lymphocytes (%) (Auto) 9L, Monocytes (%) (Auto) 10, Eosinophils (%) (Auto) 1, Basophils (%) (Auto) 0, Neutrophils # (Auto) 5.7, Lymphocytes # (Auto) 0.7L, Monocytes # (Auto) 0.7, Eosinophils # (Auto) 0.1, Basophils # (Auto) 0.0, Prothrombin Time 14.2, INR Comment 1.1, Activated Partial Thromboplast Time 22L, Sodium Level 136, Potassium Level 4.1, Chloride Level 104, Carbon Dioxide Level 21, Anion Gap 11, Blood Urea Nitrogen 19H, Creatinine 1.33H, Estimat Glomerular Filtration Rate 51, BUN/Creatinine Ratio 14, Glucose Level 157H, Lactic Acid Level 1.55, Calcium Level 7.8L, Corrected Calcium 8.4L, Total Bilirubin 0.3, Aspartate Amino Transf (AST/SGOT) 15, Alanine Aminotransferase (ALT/SGPT) 8, Alkaline Phosphatase 94, Lactate Dehydrogenase 150, C-Reactive Protein High Sensitivity 1.40H, Total Protein 5.9L, Albumin 3.3, Procalcitonin 0.06 02/02/20 18:45: Coronavirus 2019 (KASEY) PositiveH 02/03/20 02:30: White Blood Count 5.2, Red Blood Count 3.55L, Hemoglobin 10.4L, Hematocrit 32L, Mean Corpuscular Volume 90, Mean Corpuscular Hemoglobin 29, Mean Corpuscular Hemoglobin Concent 33, Red Cell Distribution Width 15.6H, Platelet Count 91L, Mean Platelet Volume 9.1, Neutrophils (%) (Auto) 85H, Lymphocytes (%) (Auto) 11L , Monocytes (%) (Auto) 4, Eosinophils (%) (Auto) 0, Basophils (%) (Auto) 0, Neutrophils # (Auto) 4.4, Lymphocytes # (Auto) 0.6L, Monocytes # (Auto) 0.2, Eosinophils # (Auto) 0.0, Basophils # (Auto) 0.0, Sodium Level 142, Potassium Level 4.0, Chloride Level 114#H, Carbon Dioxide Level 19L, Anion Gap 9, Blood Urea Nitrogen 17, Creatinine 0.96, Estimat Glomerular Filtration Rate > 60, BUN/Creatinine Ratio 18, Glucose Level 126H, Calcium Level 7.4L, Corrected Calcium 8.3L, Total Bilirubin 0.2, Aspartate Amino Transf (AST/SGOT) 15, Alanine Aminotransferase (ALT/SGPT) 9, Alkaline Phosphatase 79, Total Protein 5.2L, Albumin 2.9L, Phosphorus Level 3.2, Magnesium Level 1.7 Microbiology 02/02/20 Influenza Types A,B Antigen (KARISSA) - Final, Complete 02/02/20 Blood Culture - Preliminary, Resulted Gram Positive Cocci Gram Positive Cocci In Chains See Comments 02/02/20 Urine Culture - Preliminary, Resulted Staphylococcus aureus ECG Impression ECG Initial ECG Rhythm: Normal Sinus A/P-Cardiology Assessment/Admission Diagnosis COVID-19 positive, UTI sepsis, Paroxysmal atrial fibrillation, CAD, Acute kidney injury Plan COVID-19 positive, on IV antibiotics and dexamethasone. Defer to Dr. Lyons. UTI sepsis, on IV antibiotics. Paroxysmal atrial fibrillation, currently sinus rhythm with PACs. Patient does not do well on IV Cardizem as per daughter who is a hospitalist. Therefore if the patient becomes A. fib RVR, we will use IV amiodarone. CAD,no active issues. Acute kidney injury, defer to Dr. Lyons. Thank you for your consultation. Please call me if you have any questions. Ralph Gould MD, FACP, FACC, FSCAI, FHRS, CCDS Interventional Cardiology Cardiac Electrophysiology Vascular Medicine and Endovascular Interventions Clinical Quality Measures DVT/VTE Risk/Contraindication: Risk Factor Score Per Nursin RFS Level Per Nursing on Admit: 4+=Very High Mary GOULD MD Feb 03, 2020 16:19
[2020-02-03] MEDS: cefTRIAXone 1,000 MG/SWFI 10 ML IV PUSH IV SCH ×2 (20:39)
[2020-02-04] VITALS (15 sets, daily range): BP systolic 99–167; BP diastolic 49–97
[2020-02-04] MEDS: POTASSIUM CL 10MEQ/50ML IVPB 50 ML IV SCH (03:50)
[2020-02-04] MEDS: MAGNESIUM 1 GM/100 ML IVPB 100 ML IV SCH (03:51)
[2020-02-04] MEDS: KCL 20 MEQ TAB (K-DUR) PO SCH (03:51)
[2020-02-04 03:52] LABS: BASOPHILS % (AUTO) 0 % (0-10); EOSINOPHILS % (AUTO) 0 % (0-10); HEMATOCRIT 37 % (40-54); HEMOGLOBIN 12.3 G/DL (13.3-17.7); LYMPHOCYTES # (AUTO) 1.1 X 10^3 (1.0-4.0); LYMPHOCYTES % (AUTO) 17 % (12-44); MEAN CORPUSCULAR HEMOGLOBIN 29 PG (25-34); MEAN CORPUSCULAR HGB CONC 33 G/DL (32-36); MEAN CORPUSCULAR VOLUME 89 FL (80-99); MONOCYTES # (AUTO) 0.7 X 10^3 (0.0-1.0); MONOCYTES % (AUTO) 10 % (0-12); NEUTROPHILS # (AUTO) 4.7 X 10^3 (1.8-7.8); NEUTROPHILS % (AUTO) 72 % (42-75); PLATELET COUNT 96 10^3/uL (130-400); WHITE BLOOD COUNT 6.5 10^3/uL (4.3-11.0)
[2020-02-04 04:09] LABS: CHLORIDE 108 MMOL/L (98-107)
[2020-02-04 04:10] LABS: POTASSIUM 4.3 MMOL/L (3.6-5.0); SODIUM 141 MMOL/L (135-145)
[2020-02-04 04:11] LABS: CALCIUM 7.8 MG/DL (8.5-10.1); GLUCOSE 92 MG/DL (70-105)
[2020-02-04 04:13] LABS: CARBON DIOXIDE 24 MMOL/L (21-32)
[2020-02-04 04:15] LABS: CREATININE SERUM 1.06 MG/DL (0.60-1.30); GFR ESTIMATED > 60; PHOSPHORUS 3.8 MG/DL (2.3-4.7)
[2020-02-04 04:16] LABS: BUN/CREATININE RATIO 16
[2020-02-04 04:17] LABS: MAGNESIUM 1.9 MG/DL (1.6-2.4)
[2020-02-04] MEDS ORDERED: REMDESIVIR INJ (FREE STOCK) 100 MG in NS (IVPB) 230 ML IV SCH (04:45)
--- NOTE | 2020-02-04 05:33 | Pulmonary Progress Note ---
Subjective Time Seen by a Provider: 05:30 Subjective/Events-last exam No complications noted. Sepsis Event Evaluation Height, Weight, BMI Height: 5'7.00" Weight: 173lbs. 6.0oz. 78.536501yl; 23.42 BMI Method:Estimated Focused Exam Lactate Level 02/02/20 18:40: Lactic Acid Level 1.55 Exam Exam Vital Signs Date Time Temp Pulse Resp B/P (MAP) Pulse Ox O2 Delivery O2 Flow Rate FiO2 02/04/20 04:00 99 Nasal Cannula 2.00 02/04/20 03:00 39 16 125/73 (90) 100 Nasal Cannula 2.00 02/04/20 02:00 44 16 136/63 (87) 100 Nasal Cannula 2.00 02/04/20 01:00 43 20 117/49 (71) 100 Nasal Cannula 2.00 02/04/20 01:00 43 02/04/20 00:00 45 18 121/97 (105) 99 Nasal Cannula 2.00 02/04/20 00:00 36.6 02/04/20 00:00 99 Nasal Cannula 2.00 02/03/20 23:00 42 13 116/62 (80) 100 Nasal Cannula 2.00 02/03/20 22:00 51 16 113/58 (76) 99 Nasal Cannula 2.00 02/03/20 21:00 50 19 98 Nasal Cannula 2.00 02/03/20 20:42 37.0 Nasal Cannula 2.00 02/03/20 20:00 56 16 137/76 (96) 97 Nasal Cannula 2.00 02/03/20 20:00 98 Nasal Cannula 2.00 02/03/20 19:00 53 20 135/75 (95) 100 Nasal Cannula 2.00 02/03/20 19:00 53 02/03/20 18:00 59 19 100/72 (81) 100 Nasal Cannula 2.00 02/03/20 17:00 44 17 100 Nasal Cannula 2.00 02/03/20 16:00 53 17 148/76 (100) 100 Nasal Cannula 2.00 02/03/20 16:00 100 Nasal Cannula 2.00 02/03/20 15:00 50 12 120/66 (84) 100 Nasal Cannula 2.00 02/03/20 14:00 45 12 136/57 (83) 100 Nasal Cannula 2.00 02/03/20 13:00 47 16 100 Nasal Cannula 2.00 02/03/20 12:25 43 02/03/20 12:00 100 Nasal Cannula 2.00 02/03/20 12:00 44 21 127/58 (81) 100 Nasal Cannula 2.00 02/03/20 11:00 46 16 139/64 (89) 100 Nasal Cannula 2.00 02/03/20 10:00 56 28 106/62 (77) 99 Nasal Cannula 2.00 02/03/20 09:00 60 19 142/68 (92) 100 Nasal Cannula 2.00 02/03/20 08:00 36.5 48 16 127/62 (83) 100 Nasal Cannula 2.00 02/03/20 08:00 100 Nasal Cannula 2.00 02/03/20 08:00 43 15 100 Nasal Cannula 2.00 02/03/20 07:00 44 02/03/20 07:00 43 11 118/66 (83) 100 Nasal Cannula 2.00 02/03/20 06:00 41 14 94/48 (63) 100 Nasal Cannula 2.00 I & O 02/04/20 07:00 Intake Total 1950 ml Output Total 1125 ml Balance 825 ml Height & Weight Height: 5'7.00" Weight: 173lbs. 6.0oz. 78.473921uh; 23.42 BMI Method:Estimated General Appearance: No Apparent Distress, WD/WN HEENT: Normal ENT Inspection, Pharynx Normal Neck: Normal Inspection Respiratory: Lungs Clear, Normal Breath Sounds, No Accessory Muscle Use, Crackles (Few basilar crackles), Decreased Breath Sounds, Rhonci (Few) Cardiovascular: Regular Rate, Rhythm, No Edema, No Murmur Capillary Refill: Less Than 3 Seconds Extremity: Normal Inspection, No Pedal Edema Neurologic/Psychiatric: Other (mu says extremities independently. Responds to pain and other stimulus. Has no meaningful communication and does not answer questions.) Results Lab Laboratory Tests 02/02/20 18:40 02/03/20 02:30 02/04/20 03:36 Assessment/Plan Assessment/Plan COVID + -Remdesivir - RN discussed with daughter who is a hospitalist. Per RN she agrees with Remdesivir -Decadron -Titrate oxygen to D/C as tolerated. -convalescent plasma -Was also discussed with daughter. -PT is doing well respiratory romo. Will hold off on giving plasma for now. -Isolation -Influenza is negative UTI with hx of chronic UTIs -Continue Vanco and Rocephin for now -Await cultures ds Bacterimeia - probably secondary to UTI -Await sensitivities Afib proxysmal - currently bradycardia -Cardiology consulted Acute renal failure -Improved Nonanion gapped metabolic acidosis -Monitor Anemia and thrombocytopenia Chronic debility and dementia -From [facility] RADHA CASTAÑEDA DO Feb 04, 2020 05:33
[2020-02-04] MEDS: REMDESIVIR INJ (NON-FORMULARY) 100 MG in NS (IVPB) 230 ML IV SCH (08:23)
[2020-02-04] MEDS: PANTOPRAZOLE 40 MG (PROTONIX) VIAL IV SCH (08:24)
[2020-02-04] MEDS: ENOXAPARIN 80 MG/0.8 ML (LOVENOX) SYR SC SCH ×2 (08:26→21:28)
--- NOTE | 2020-02-04 08:50 | ST Dysphagia Evaluation ---
Speech Evaluation-General Medical Diagnosis Sepsis Onset Date: Feb 02, 2020 Therapy Diagnosis Therapy Diagnosis: Oropharyngeal Dysphagia Precautions Precautions: Aspiration Referral Referring Physician: Dr. Lyons Medical History Pertinent Medical History: Atrial Fib, CAD, Dementia, HTN, AR, TBI Reviewed History: Yes Social History Home: Prison Current Living Status: Speech PLF/Current-Dysphagia Prior Level of Function Patient lives in a NH where he receives total care for his daily needs. Subjective Patient was sitting up in his chair with nursing staff completing his needs. Patient is nonverbal and unable to vocalize needs. Cognitive Status Patient Orientation: Confused, Non-Verbal/Aphasic, Mumbles Patient has profound dementia and does not vocalize needs. Oral Motor Skills Dentition: Edentalous Ability to Follow Directions: Unable NPO status pending BDE Oral Expression Ability: Unable Face Facial Symmetry: Symmetrical Oral-Facial Assessment Oral-Facial Dentition: Normal Labial Seal Description: Reduced ROM, Weak Smile: Reduced ROM, Poor Coordination Lingual Protrusion: Abnormal Lingual ROM: Abnormal Lingual Strength: Abnormal Volitional Dry Swallow: Yes Voluntary Cough: Yes Dysphagia Evaluation Consistencies Presented: Thin Liquid, Mechanical Soft, Pureed Munch chew pattern of mastication Pharyngeal Phase: Decreased A/P Bolus Transit Dietary Recommendations: Pureed Liquid Recommendations: Thin Swallowing Precautions: Alternate Liquids/Solids, Decreased Bolus 1/2 Tsp, Liquids from Spoon, No Straw, Small Bites and Sips, Sitting Upright 90 Degrees, Sitting 90 Degrees 30 Post Intake Dysphagia Evaluation Summary Patient was sitting up in bed for BDE. Patient's eyes were closed and mumbles. Patient was given verbal information prior to each presentation. Patient was given 1/2 tsp of thin x2 without difficulty noted. Patient was unable to suck on the straw upon presentation and verbally cued. Patient was given 1/2 tsp of puree x2 without difficulty. Patient was presented 1/2 tsp mechanical soft with munch chew mastication pattern and inability to manage bolus or transfer posteriorly. Patient is recommended for a Dysphagia I diet level with thin liquids by 1/2 tsp ONLY. Patient recommendations provided to his nurse as well as written on the white board in his room. Barriers to Learning Patient has profound dementia and does not vocalize needs. Speech-Plan Patient/Family Goals Patient/Family Goals: Patient will return to the NH upon hospital discharge. Treatment Plan Speech Therapy Treatment Plan: Discontinue ST Treatment Duration: Feb 04, 2020 Frequency: 1 time per week Estimated Hrs Per Day: .25 hour per day Rehab Potential: Poor Barriers to Learning: Patient has profound dementia and does not vocalize needs. Safety Risks/Education Teaching Recipient: Patient Teaching Methods: Discussion Response to Teaching: Reinforcement Needed Education Topics Provided: Diet level and safe oral intake strategies Time Speech Therapy Time In: 08:10 Speech Therapy Time Out: 08:30 Total Billed Time: 20 Billed Treatment Time 1, NANCY, ASA Carpio Feb 04, 2020 08:49
[2020-02-04] MEDS ORDERED: TROUGH ORDER-PHARMACY XX NR (10:00)
[2020-02-04] MEDS ORDERED: DORZ1DRO7 OU (10:01)
[2020-02-04] MEDS ORDERED: PROM25SU44 RC (10:01)
--- NOTE | 2020-02-04 10:19 | Physician Query Clarification ---
PQ-Further Specificity Admission/Discharge Admission Date: Feb 02, 2020 at 20:18 Discharge Date: The medical record reflects the following clinical scenario: Dr. Lyons History/Risk Factors: Sepsis UTI Acute renal failure COVID 19 Clinical Findings:eGFR 51, BUN 19, Creatinine 1.33. Lactic acid 1.55 Treatment: IV fluids, IV Rocephin, IV Vancomycin. Question: Can you further specify sepsis per the clinical indicators above? Please document a response in the Progress Notes or Discharge Summary. 1. Sepsis with severe sepsis. 2. Sepsis (no severe sepsis) 3. Other, with explanation of the clinical findings. 4. Clinically undetermined, no explanation for the clinical findings. PHYSICIAN RESPONSE Can you specify per above: Other, explanation/clinical finding Explanation/Clinical Findings I do not have sepsis listed in my A/P therefore I did not believe pt had sepsis. Sepsis is not my diagnosis. This should not be my question, please ask this to the doctor that listed sepsis. COVID + -Remdesivir - RN discussed with daughter who is a hospitalist. Per RN she agrees with Remdesivir -Decadron -Titrate oxygen to D/C as tolerated. -convalescent plasma -Was also discussed with daughter. -PT is doing well respiratory romo. Will hold off on giving plasma for now. -Isolation -Influenza is negative UTI with hx of chronic UTIs -Continue Vanco and Rocephin for now -Await cultures ds Bacterimeia - probably secondary to UTI -Await sensitivities Afib proxysmal - currently bradycardia -Cardiology consulted Acute renal failure -Improved Nonanion gapped metabolic acidosis -Monitor Anemia and thrombocytopenia Chronic debility and dementia -From [facility] Please remember a lack of response to the above will prompt a phone page by CDI/Coding staff. In responding to this query, please exercise your independent professional judgment. The purpose of this communication is to more accurately reflect the complexity of your patients condition. The fact that a question is asked does not imply that any particular answer is desired or expected. Thank you for your timely response to this clarification. Requestors name: Gregoria Meza [facility] Phone # ext [phone] or [phone] THIS PHYSICIAN QUERY FORM IS A PERMANENT PART OF THE MEDICAL RECORD GREGORIA MEZA Feb 04, 2020 10:19 RADHA LYONS DO Feb 24, 2020 08:16
--- NOTE | 2020-02-04 10:27 | Physician Query Clarification ---
PQ-Further Specificity Admission/Discharge Admission Date: Feb 02, 2020 at 20:18 Discharge Date: The medical record reflects the following clinical scenario: History/Risk Factors: Sepsis UTI Clinical Findings: Urine culture- >100,000 Staphylococcus aureus, Preliminary blood culture- Staph, coag neg, probable enterococcus species isolated. Treatment: IV Rocephin, IV Vancomycin, Question: Can you further specify sepsis per the clinical indicators above? Please document a response in the Progress Notes or Discharge Summary. 1. Sepsis due to staphylococcus aureus. 2. Sepsis due to Staph coag neg and Enterococcus. 3. Other, with explanation of the clinical findings. 4. Clinically undetermined, no explanation for the clinical findings. PHYSICIAN RESPONSE Can you specify per above: Other, explanation/clinical finding Explanation/Clinical Findings sepsis is not my dx. COVID + -Remdesivir - RN discussed with daughter who is a hospitalist. Per RN she agrees with Remdesivir -Decadron -convalescent plasma - If ok with daughter -Isolation -Influenza is negative UTI with hx of chronic UTIs -Continue Vanco and Rocephin for now -Await cultures ds Afib proxysmal - currently bradycardia -Cardiology consulted Acute renal failure -Improved Nonanion gapped metabolic acidosis -Monitor Anemia and thrombocytopenia Chronic debility and dementia -From ECF Please remember a lack of response to the above will prompt a phone page by CDI/Coding staff. In responding to this query, please exercise your independent professional judgment. The purpose of this communication is to more accurately reflect the c omplexity of your patients condition. The fact that a question is asked does not imply that any particular answer is desired or expected. Thank you for your timely response to this clarification. Requestors name: Gregoria Meza [facility], [facility] Phone # ext [phone] or [phone] THIS PHYSICIAN QUERY FORM IS A PERMANENT PART OF THE MEDICAL RECORD GREGORIA MEZA Feb 04, 2020 10:27 RADHA CASTAÑEDA DO Feb 24, 2020 08:19
[2020-02-04] MEDS: VANCOMYCIN 750 MG/NS 250 ML IVPB IV SCH ×2 (13:00)
--- NOTE | 2020-02-04 13:00 | NUR ---
pt to 4th floor via bed. introduced to room and call light. beside report given to Patricia HERNANDEZ
--- NOTE | 2020-02-04 14:18 | NUR ---
VANCOMYCIN DOSING: LABS: SCr 1.06, VANCOMYCIN TROUGH LEVEL 19.5 02/03 @ 1002. PHARMACOKINETICS/CLINCALC (Kd = 0.066, t1/2 = 10.5 H). PLAN: VANCOMYCIN CHANGED TO TO 750MG IV Q12H FOR PREDICTED TROUGH 12.4. TIMED NEXT DOSE FOR 1300 02/03.
--- NOTE | 2020-02-04 15:36 | Cardiology Progress Note ---
Cardiology SOAP Progress Note Subjective: No active cardiac complaints. Objective: I&O/Vital Signs 02/04/20 02/04/20 02/04/20 02/04/20 04:00 04:00 05:00 06:00 Pulse 41 41 41 Resp 20 18 22 B/P (MAP) 123/67 (85) 127/64 (85) 135/60 (85) Pulse Ox 100 99 100 100 O2 Delivery Nasal Cannula Nasal Cannula Nasal Cannula Nasal Cannula O2 Flow Rate 2.00 2.00 2.00 2.00 02/04/20 02/04/20 02/04/20 02/04/20 06:24 06:38 07:00 07:00 Temp 36.8 Pulse 42 53 40 Resp 23 14 B/P (MAP) 134/76 (95) Pulse Ox 100 100 O2 Delivery Room Air Room Air 02/04/20 02/04/20 02/04/20 02/04/20 08:00 08:00 09:00 09:29 Pulse 50 50 Resp 14 12 B/P (MAP) 126/73 (90) 126/55 (78) Pulse Ox 100 100 100 O2 Delivery Nasal Cannula Room Air Room Air Nasal Cannula O2 Flow Rate 2.00 2.00 02/04/20 02/04/20 02/04/20 02/04/20 10:00 12:00 12:00 13:00 Temp 36.9 36.9 Pulse 46 44 Resp 17 18 B/P (MAP) 122/73 (89) 99/52 (68) Pulse Ox 100 100 97 O2 Delivery Room Air Nasal Cannula Nasal Cannula O2 Flow Rate 2.00 2.00 02/04/20 00:00 Intake Total 1700 ml Output Total 600 ml Balance 1100 ml Weight (Pounds): 173 Weight (Ounces): 6.0 Weight (Calculated Kilograms): 78.609872 Constitutional: appears stated age, AAO x 3; No apparent distress; well- developed, well-nourished Respiratory: chest is bilaterally symmetric, lungs clear to auscultation Cardiovascular: regular rate-rhythm, S1 and S2; No diastolic murmur, No systolic murmur Gastrointestional: soft, audible bowel sounds; No spleenomegaly Extremities: normal range of motion, non-tender, normal inspection; No clubbing, No cyanosis; no lower extremity edema bilateral; No significant edema Neurologic/Psychiatric: no motor/sensory deficits, alert, normal mood/affect, p ower is 5/5 both on sides Skin: normal color, warm/dry, other (febrile to the touch) Results/Procedures: Labs Laboratory Tests 02/04/20 03:36: White Blood Count 6.5, Red Blood Count 4.20L, Hemoglobin 12.3L, Hematocrit 37L, Mean Corpuscular Volume 89, Mean Corpuscular Hemoglobin 29, Mean Corpuscular Hemoglobin Concent 33, Red Cell Distribution Width 15.8H, Platelet Count 96L, Mean Platelet Volume 9.0, Neutrophils (%) (Auto) 72, Lymphocytes (%) (Auto) 17, Monocytes (%) (Auto) 10, Eosinophils (%) (Auto) 0, Basophils (%) (Auto) 0, Neutrophils # (Auto) 4.7, Lymphocytes # (Auto) 1.1, Monocytes # (Auto) 0.7, Eosinophils # (Auto) 0.0, Basophils # (Auto) 0.0, Sodium Level 141, Potassium Level 4.3, Chloride Level 108H, Carbon Dioxide Level 24, Anion Gap 9, Blood Urea Nitrogen 17, Creatinine 1.06, Estimat Glomerular Filtration Rate > 60, BUN/ Creatinine Ratio 16, Glucose Level 92, Calcium Level 7.8L, Phosphorus Level 3.8, Magnesium Level 1.9 02/04/20 10:02: Vancomycin Level Trough 19.5 Microbiology 02/02/20 MRSA Screen - Final, Complete MRSA not isolated 02/02/20 Blood Culture - Preliminary, Resulted Probable Enterococcus Species Staph, Coag Neg (DELIVERY ARCHITECT) See Comments 02/02/20 Urine Culture - Preliminary, Resulted Staphylococcus aureus A/P: Assessment/Dx: COVID-19 positive, UTI sepsis, Paroxysmal atrial fibrillation, CAD, Acute kidney injury Plan: COVID-19 positive, on IV antibiotics and dexamethasone. Defer to Dr. Lyons. UTI sepsis, on IV antibiotics. Paroxysmal atrial fibrillation, currently sinus rhythm with PACs. Patient does not do well on IV Cardizem as per daughter who is a hospitalist. Therefore if the patient becomes A. fib RVR, we will use IV amiodarone. Still in sinus rhyth m. CAD,no active issues. Acute kidney injury, defer to Dr. Lyons. Thank you for your consultation. Please call me if you have any questions. Ralph Rico MD, FACP, FACC, FSCAI, FHRS, CCDS Interventional Cardiology Cardiac Electrophysiology Vascular Medicine and Endovascular Interventions Focused Exam Lactate Level 02/02/20 18:40: Lactic Acid Level 1.55 Mary RICO MD Feb 04, 2020 15:36
[2020-02-04] MEDS ORDERED: WATER (STERILE) FOR INJECTION 10 ML ONE (20:31)
[2020-02-04] MEDS ORDERED: cefTRIAXone 1,000 MG IV (ROCEPHIN) VIAL ONE (20:31)
[2020-02-04] MEDS: cefTRIAXone 1,000 MG/SWFI 10 ML IV PUSH IV SCH ×2 (21:26)
[2020-02-04] MEDS: LACTATED RINGERS 1,000 ML IV SCH (22:40)
[2020-02-05] MEDS: VANCOMYCIN 750 MG/NS 250 ML IVPB IV SCH ×4 (00:41→13:00)
[2020-02-05 04:00] VITALS: BP 114/84
[2020-02-05 05:08] LABS: BASOPHILS % (AUTO) 0 % (0-10); EOSINOPHILS % (AUTO) 0 % (0-10); HEMATOCRIT 40 % (40-54); HEMOGLOBIN 13.4 G/DL (13.3-17.7); LYMPHOCYTES # (AUTO) 1.2 X 10^3 (1.0-4.0); LYMPHOCYTES % (AUTO) 23 % (12-44); MEAN CORPUSCULAR HEMOGLOBIN 29 PG (25-34); MEAN CORPUSCULAR HGB CONC 34 G/DL (32-36); MEAN CORPUSCULAR VOLUME 88 FL (80-99); MEAN PLATELET VOLUME 9.3 FL (7.4-10.4); MONOCYTES # (AUTO) 0.4 X 10^3 (0.0-1.0); MONOCYTES % (AUTO) 8 % (0-12); NEUTROPHILS # (AUTO) 3.8 X 10^3 (1.8-7.8); NEUTROPHILS % (AUTO) 69 % (42-75); PLATELET COUNT 99 10^3/uL (130-400); WHITE BLOOD COUNT 5.5 10^3/uL (4.3-11.0)
[2020-02-05 05:30] LABS: CHLORIDE 104 MMOL/L (98-107); POTASSIUM 4.1 MMOL/L (3.6-5.0); SODIUM 138 MMOL/L (135-145)
[2020-02-05 05:31] LABS: CALCIUM 7.9 MG/DL (8.5-10.1)
[2020-02-05 05:32] LABS: GLUCOSE 85 MG/DL (70-105)
[2020-02-05 05:34] LABS: CARBON DIOXIDE 26 MMOL/L (21-32)
[2020-02-05 05:36] LABS: CREATININE SERUM 0.95 MG/DL (0.60-1.30); GFR ESTIMATED > 60; PHOSPHORUS 2.7 MG/DL (2.3-4.7)
[2020-02-05 05:37] LABS: BUN/CREATININE RATIO 18
[2020-02-05 05:38] LABS: MAGNESIUM 1.7 MG/DL (1.6-2.4)
[2020-02-05] MEDS: KCL 20 MEQ TAB (K-DUR) PO SCH (06:00)
[2020-02-05] MEDS: POTASSIUM CL 10MEQ/50ML IVPB 50 ML IV SCH (06:00)
[2020-02-05] MEDS: MAGNESIUM 1 GM/100 ML IVPB 100 ML IV SCH ×3 (06:00→09:21)
[2020-02-05 08:25] VITALS: BP 136/58
[2020-02-05] MEDS: ENOXAPARIN 80 MG/0.8 ML (LOVENOX) SYR SC SCH ×2 (09:23→21:39)
[2020-02-05] MEDS: PANTOPRAZOLE 40 MG (PROTONIX) TAB PO SCH (09:23)
[2020-02-05] MEDS: REMDESIVIR INJ (NON-FORMULARY) 100 MG in NS (IVPB) 230 ML IV SCH (09:25)
[2020-02-05 11:41] VITALS: BP_SYST 100; BP_SYST 136; BP_DIAS 54; BP_DIAS 58
--- NOTE | 2020-02-05 13:46 | Progress Note - Hospitalist ---
Subjective HPI/CC On Admission Date Seen by Provider: Feb 05, 2020 Time Seen by Provider: 10:55 Subjective/Events-last exam he is demented and nonverbal. Focused Exam Lactate Level 02/02/20 18:40: Lactic Acid Level 1.55 Objective Exam Vital Signs Vital Signs Date Time Temp Pulse Resp B/P (MAP) Pulse Ox O2 Delivery O2 Flow Rate FiO2 02/05/20 11:41 37.0 77 16 100/54 (69) 99 Nasal Cannula 2.00 Capillary Refill : Less Than 3 Seconds General Appearance: No Apparent Distress, Chronically ill, Other (kyphotic) Respiratory: No Respiratory Distress, Rhonci Cardiovascular: Regular Rate, Rhythm, No Edema, No Murmur Gastrointestinal: Normal Bowel Sounds, Soft Extremity: Normal Inspection, Non Tender, No Pedal Edema Neurologic/Psychiatric: Other (sleeping, unarousable, nonverbal) Skin: Warm/Dry, Pallor Results/Procedures Lab Laboratory Tests 02/05/20 04:37 Patient resulted labs reviewed. Assessment/Plan Assessment and Plan Assess & Plan/Chief Complaint COVID-19 continue Remdesivir continue Decadron continue supplemental oxygen as needed convalescent plasma discussed but deferred Staph aureus UTI Enterococcus bacteremia Continue Vanco and Rocephin for now Await cultures paroxysmal atrial fibrillation Cardiology consulted Lovenox CITLALY Improved Anemia and thrombocytopenia chronic, stable Chronic debility and dementia Clinically significant, no acute management needs DVT prophylaxis: already receiving therapeutic anticoagulation Diagnosis/Problems Diagnosis/Problems (1) COVID-19 Status: Acute (2) Urinary tract infection Status: Acute (3) Bacteremia due to Enterococcus Status: Acute (4) Dementia Status: Chronic Clinical Quality Measures DVT/VTE Risk/Contraindication: Risk Factor Score Per Nursin RFS Level Per Nursing on Admit: 4+=Very High SANDY CASE MD Feb 05, 2020 13:46
--- NOTE | 2020-02-05 14:58 | NUR ---
CM/SS visited with the patient's daughter Georgette. Plan: The plan is for the patient to return to [facility] at time of discharge. The patient's daughter Georgette reports that patient has been continuing wound care with Dr. Acosta; however, he is out of town currently. Georgette asked if wound care/Dr. Meier would be able to be consulted. CM/SS notified physician of request. Georgette is wanting patient to return skilled to facility to receive PT, OT, ST, and SN. CM/SS informed Georgette that this sw will need to call [facility] to check skilled days. CM/SS will continue to follow.
[2020-02-05 16:00] VITALS: BP 101/42
--- NOTE | 2020-02-05 16:10 | Cardiology Progress Note ---
Cardiology SOAP Progress Note Subjective: No acute cardiac complaints. Objective: I&O/Vital Signs 02/05/20 02/05/20 02/05/20 02/05/20 07:08 08:25 09:00 09:58 Temp 36.0 Pulse 100 78 Resp 16 B/P (MAP) 136/58 (84) Pulse Ox 92 O2 Delivery Nasal Cannula Nasal Cannula Nasal Cannula O2 Flow Rate 2.00 2.00 2.00 02/05/20 02/05/20 11:41 14:28 Temp 37.0 Pulse 77 94 Resp 16 B/P (MAP) 100/54 (69) Pulse Ox 99 O2 Delivery Nasal Cannula O2 Flow Rate 2.00 02/05/20 00:00 Intake Total 400 ml Output Total 1050 ml Balance -650 ml Weight (Pounds): 173 Weight (Ounces): 6.0 Weight (Calculated Kilograms): 78.927914 Constitutional: appears stated age, AAO x 3; No apparent distress; well- developed, well-nourished Cardiovascular: No diastolic murmur, No systolic murmur Gastrointestional: No spleenomegaly Extremities: normal inspection; No clubbing, No cyanosis; no lower extremity edema bilateral; No significant edema Neurologic/Psychiatric: alert, normal mood/affect, power is 5/5 both on sides Skin: normal color, warm/dry, other (febrile to the touch) Results/Procedures: Labs Laboratory Tests 02/05/20 04:37: White Blood Count 5.5, Red Blood Count 4.56, Hemoglobin 13.4, Hematocrit 40, Mean Corpuscular Volume 88, Mean Corpuscular Hemoglobin 29, Mean Corpuscular Hemoglobin Concent 34, Red Cell Distribution Width 15.5H, Platelet Count 99L, Mean Platelet Volume 9.3, Neutrophils (%) (Auto) 69, Lymphocytes (%) (Auto) 23, Monocytes (%) (Auto) 8, Eosinophils (%) (Auto) 0, Basophils (%) (Auto) 0, Neutrophils # (Auto) 3.8, Lymphocytes # (Auto) 1.2, Monocytes # (Auto) 0.4, Eosinophils # (Auto) 0.0, Basophils # (Auto) 0.0, Sodium Level 138, Potassium Level 4.1, Chloride Level 104, Carbon Dioxide Level 26, Anion Gap 8, Blood Urea Nitrogen 17, Creatinine 0.95, Estimat Glomerular Filtration Rate > 60, BUN/Creatinine Ratio 18, Glucose Level 85, Calcium Level 7.9L, Phosphorus Level 2.7, Magnesium Level 1.7 Microbiology 02/02/20 MRSA Screen - Final, Complete MRSA not isolated 02/02/20 Blood Culture - Preliminary, Resulted Enterococcus faecalis Staph, Coag Neg (MITER CUTTER) See Comments 02/02/20 Urine Culture - Final, Complete Staphylococcus aureus A/P: Assessment/Dx: COVID-19 positive, UTI sepsis, Paroxysmal atrial fibrillation, CAD, Acute kidney injury Plan: COVID-19 positive, on IV antibiotics and dexamethasone. Defer to Dr. Lyons. UTI sepsis, on IV antibiotics. Paroxysmal atrial fibrillation, currently in atrial fibrillation with controlled ventricular rate.. Patient does not do well on IV Cardizem as per daughter who is a hospitalist. Therefore if the patient becomes A. fib RVR, we will use IV amiodarone. CAD,no active issues. Acute kidney injury, defer to Dr. Lyons. Thank you for your consultation. Please call me if you have any questions. Ralph Rico MD, FACP, FACC, FSCAI, FHRS, CCDS Interventional Cardiology Cardiac Electrophysiology Vascular Medicine and Endovascular Interventions Focused Exam Lactate Level 02/02/20 18:40: Lactic Acid Level 1.55 Mary RICO MD Feb 05, 2020 16:10
[2020-02-05 19:39] VITALS: BP 104/63
[2020-02-05] MEDS ORDERED: WATER (STERILE) FOR INJECTION 10 ML ONE (19:47)
[2020-02-05] MEDS ORDERED: cefTRIAXone 1,000 MG IV (ROCEPHIN) VIAL ONE (19:47)
[2020-02-05] MEDS: cefTRIAXone 1,000 MG/SWFI 10 ML IV PUSH IV SCH ×2 (19:57)
[2020-02-05] MEDS: LACTATED RINGERS 1,000 ML IV SCH (21:39)
[2020-02-05 23:48] VITALS: BP 133/69
[2020-02-06] VITALS (7 sets, daily range): BP systolic 94–154; BP diastolic 72–91
[2020-02-06] MEDS: VANCOMYCIN 750 MG/NS 250 ML IVPB IV SCH ×4 (00:43→13:20)
[2020-02-06 04:51] LABS: BASOPHILS % (AUTO) 0 % (0-10); EOSINOPHILS % (AUTO) 0 % (0-10); HEMATOCRIT 38 % (40-54); HEMOGLOBIN 12.6 G/DL (13.3-17.7); LYMPHOCYTES # (AUTO) 1.5 X 10^3 (1.0-4.0); LYMPHOCYTES % (AUTO) 30 % (12-44); MEAN CORPUSCULAR HEMOGLOBIN 29 PG (25-34); MEAN CORPUSCULAR HGB CONC 33 G/DL (32-36); MEAN CORPUSCULAR VOLUME 87 FL (80-99); MEAN PLATELET VOLUME 9.1 FL (7.4-10.4); MONOCYTES # (AUTO) 0.4 X 10^3 (0.0-1.0); MONOCYTES % (AUTO) 9 % (0-12); NEUTROPHILS # (AUTO) 2.9 X 10^3 (1.8-7.8); NEUTROPHILS % (AUTO) 61 % (42-75); PLATELET COUNT 99 10^3/uL (130-400); WHITE BLOOD COUNT 4.8 10^3/uL (4.3-11.0)
[2020-02-06 05:02] LABS: CHLORIDE 106 MMOL/L (98-107); POTASSIUM 4.1 MMOL/L (3.6-5.0); SODIUM 139 MMOL/L (135-145)
[2020-02-06 05:03] LABS: CALCIUM 7.5 MG/DL (8.5-10.1)
[2020-02-06 05:04] LABS: GLUCOSE 103 MG/DL (70-105)
[2020-02-06 05:05] LABS: TOTAL PROTEIN 5.5 GM/DL (6.4-8.2)
[2020-02-06 05:06] LABS: BILIRUBIN,TOTAL 0.2 MG/DL (0.1-1.0); CARBON DIOXIDE 23 MMOL/L (21-32)
[2020-02-06 05:08] LABS: ALKALINE PHOSPHATASE 82 U/L (40-136); CREATININE SERUM 0.97 MG/DL (0.60-1.30); GFR ESTIMATED > 60
[2020-02-06 05:09] LABS: BUN/CREATININE RATIO 20
[2020-02-06 05:11] LABS: ALANINE AMINOTRANSFERASE 15 U/L (0-55); MAGNESIUM 1.9 MG/DL (1.6-2.4)
[2020-02-06] MEDS: POTASSIUM CL 10MEQ/50ML IVPB 50 ML IV SCH (05:28)
[2020-02-06] MEDS: MAGNESIUM 1 GM/100 ML IVPB 100 ML IV SCH (05:28)
[2020-02-06] MEDS: KCL 20 MEQ TAB (K-DUR) PO SCH (05:28)
[2020-02-06] MEDS: REMDESIVIR INJ (NON-FORMULARY) 100 MG in NS (IVPB) 230 ML IV SCH (08:12)
[2020-02-06] MEDS: PANTOPRAZOLE 40 MG (PROTONIX) TAB PO SCH (08:14)
[2020-02-06] MEDS: ENOXAPARIN 80 MG/0.8 ML (LOVENOX) SYR SC SCH ×2 (09:58→22:14)
[2020-02-06] MEDS: KETOCONAZOLE 2% CREAM 15 GM (NIZORAL) TP SCH (11:17)
[2020-02-06] MEDS: TAMSULOSIN 0.4 MG (FLOMAX) CAP PO SCH (11:18)
[2020-02-06] MEDS ORDERED: TROUGH ORDER-PHARMACY XX NR (12:00)
[2020-02-06] MEDS ORDERED: fluCOnazole (DIFLUCAN) 100 MG TAB PO NR (12:30)
--- NOTE | 2020-02-06 12:35 | Progress Note - Hospitalist ---
Subjective HPI/CC On Admission Date Seen by Provider: Feb 06, 2020 Time Seen by Provider: 09:30 Subjective/Events-last exam he is severely demented and nonverbal. Objective Exam Vital Signs Vital Signs Date Time Temp Pulse Resp B/P (MAP) Pulse Ox O2 Delivery O2 Flow Rate FiO2 02/06/20 11:35 36.6 77 16 136/72 (93) 98 Nasal Cannula 2.00 Capillary Refill : Less Than 3 Seconds General Appearance: No Apparent Distress, Chronically ill Respiratory: Lungs Clear, Normal Breath Sounds, No Respiratory Distress Cardiovascular: Regular Rate, Rhythm, No Edema, No Murmur Gastrointestinal: Normal Bowel Sounds, Non Tender, Soft Extremity: Normal Inspection, Non Tender, No Pedal Edema Neurologic/Psychiatric: Other (nonverbal) Skin: Warm/Dry, Pallor Results/Procedures Lab Laboratory Tests 02/06/20 04:34 Patient resulted labs reviewed. Assessment/Plan Assessment and Plan Assess & Plan/Chief Complaint COVID-19 continue Remdesivir continue Decadron continue supplemental oxygen as needed convalescent plasma discussed but deferred Staph aureus UTI Enterococcus bacteremia Continue Vanco and Rocephin for now Await cultures paroxysmal atrial fibrillation Cardiology consulted Lovenox CITLALY Improved Anemia and thrombocytopenia chronic, stable Chronic debility and dementia Clinically significant, no acute management needs DVT prophylaxis: already receiving therapeutic anticoagulation Diagnosis/Problems Diagnosis/Problems (1) COVID-19 Status: Acute (2) Urinary tract infection Status: Acute (3) Bacteremia due to Enterococcus Status: Acute (4) Dementia Status: Chronic Clinical Quality Measures DVT/VTE Risk/Contraindication: Risk Factor Score Per Nursin RFS Level Per Nursing on Admit: 4+=Very High SANDY CASE MD Feb 06, 2020 12:34
--- NOTE | 2020-02-06 13:45 | Cardiology Progress Note ---
Cardiology SOAP Progress Note Subjective: no active cardiac complaints. discussed with the nurse and reviewed the chart Objective: I&O/Vital Signs 02/06/20 02/06/20 02/06/20 02/06/20 03:36 06:37 08:38 09:00 Temp 36.4 36.8 Pulse 76 95 78 Resp 18 16 B/P (MAP) 135/91 (106) 94/74 (81) Pulse Ox 95 99 O2 Delivery Nasal Cannula Nasal Cannula Nasal Cannula O2 Flow Rate 2.00 2.00 2.00 02/06/20 02/06/20 10:19 11:35 Temp 36.6 Pulse 77 Resp 16 B/P (MAP) 136/72 (93) Pulse Ox 98 O2 Delivery Nasal Cannula Nasal Cannula O2 Flow Rate 2.00 2.00 02/06/20 00:00 Intake Total 1360 ml Output Total 1150 ml Balance 210 ml Weight (Pounds): 173 Weight (Ounces): 6.0 Weight (Calculated Kilograms): 78.042901 Constitutional: appears stated age, AAO x 3; No apparent distress; well- developed, well-nourished Cardiovascular: No diastolic murmur, No systolic murmur Gastrointestional: No spleenomegaly Extremities: normal inspection; No clubbing, No cyanosis; no lower extremity edema bilateral; No significant edema Neurologic/Psychiatric: alert, normal mood/affect, power is 5/5 both on sides Skin: normal color, warm/dry, other (febrile to the touch) Results/Procedures: Labs Laboratory Tests 02/06/20 04:34: White Blood Count 4.8, Red Blood Count 4.38, Hemoglobin 12.6L, Hematocrit 38L, Mean Corpuscular Volume 87, Mean Corpuscular Hemoglobin 29, Mean Corpuscular Hemoglobin Concent 33, Red Cell Distribution Width 15.6H, Platelet Count 99L, Mean Platelet Volume 9.1, Neutrophils (%) (Auto) 61, Lymphocytes (%) (Auto) 30, Monocytes (%) (Auto) 9, Eosinophils (%) (Auto) 0, Basophils (%) (Auto) 0, Neutrophils # (Auto) 2.9, Lymphocytes # (Auto) 1.5, Monocytes # (Auto) 0.4, Eosinophils # (Auto) 0.0, Basophils # (Auto) 0.0, Sodium Level 139, Potassium Level 4.1, Chloride Level 106, Carbon Dioxide Level 23, Anion Gap 10, Blood Urea Nitrogen 19H, Creatinine 0.97, Estimat Glomerular Filtration Rate > 60, BUN/Creatinine Ratio 20, Glucose Level 103, Calcium Level 7.5L, Corrected Calcium 8.3L, Phosphorus Level 3.0, Magnesium Level 1.9, Total Bilirubin 0.2, As partate Amino Transf (AST/SGOT) 22, Alanine Aminotransferase (ALT/SGPT) 15, Alkaline Phosphatase 82, Total Protein 5.5L, Albumin 3.0L 02/06/20 12:40: Vancomycin Level Trough 20.4H Microbiology 02/02/20 MRSA Screen - Final, Complete MRSA not isolated 02/02/20 Blood Culture - Preliminary, Resulted Enterococcus faecalis Staph, Coag Neg (PSYCHOLOGICAL ASSISTANT) See Comments 02/02/20 Urine Culture - Final, Complete Staphylococcus aureus A/P: Assessment/Dx: COVID-19 positive, UTI sepsis, Paroxysmal atrial fibrillation, CAD, Acute kidney injury Plan: COVID-19 positive, on IV antibiotics and dexamethasone. Defer to Dr. Lyons. UTI sepsis, on IV antibiotics. Paroxysmal atrial fibrillation, currently in atrial fibrillation with controlled ventricular rate.. Patient does not do well on IV Cardizem as per daughter who is a hospitalist. Therefore if the patient becomes A. fib RVR, we will use IV amiodarone. CAD,no active issues. Acute kidney injury, defer to Dr. Lyons. Thank you for your consultation. Please call me if you have any questions. Ralph Rico MD, FACP, FACC, FSCAI, FHRS, CCDS Interventional Cardiology Cardiac Electrophysiology Vascular Medicine and Endovascular Interventions Mary RICO MD Feb 06, 2020 13:45
--- NOTE | 2020-02-06 15:03 | NUR ---
VANCOMYCIN LEVEL 20.4 02/04 @ 1240. t1/2=13.9. 70.3 KG, SCr 0.97, CrCl 51.7, BMI 22.4. PLAN: CHANGE TO 750MG Q24H STARTING 02/05 @ 1700, RECHECK LEVEL 02/08 @ 1600. IF TROUGH >20, WILL HOLD DOSE AND NOTIFY PHARMACY FOR ADJUSTMENTS.
[2020-02-06] MEDS: LACTATED RINGERS 1,000 ML IV SCH (16:22)
--- NOTE | 2020-02-06 16:35 | NUR ---
CM/SS follow up. CM/SS contacted the patient's daughter Georgette. She reports that she has spoken with the nurse Georgette and expressed her questions and concerns. Georgette reports that she would like to be contacted from the physician. The physician attempted to contact Georgette but no answer at that time. CM/SS informed Georgette that this sw spoke with Amaris at [facility] to check on skilled days. They reported patient only used 25 skilled days on the patient and he has 75 left. CM/SS discussed this with Georgette. She verbalized understanding. CM/SS informed Georgette that patient may discharge 02/06 or 02/07. CM/SS informed Hardikmaicol at the facility. She verbalized understanding. CM/SS spoke with the physician regarding Georgette's concerns. He verbalized understanding. CM/SS will continue to follow for discharge planning.
[2020-02-06] MEDS ORDERED: VANCOMYCIN 750 MG/NS 250 ML IVPB IV SCH ×2 (17:00)
[2020-02-06] MEDS ORDERED: WATER (STERILE) FOR INJECTION 10 ML ONE (19:32)
[2020-02-06] MEDS ORDERED: cefTRIAXone 1,000 MG IV (ROCEPHIN) VIAL ONE (19:32)
[2020-02-06] MEDS: cefTRIAXone 1,000 MG/SWFI 10 ML IV PUSH IV SCH ×2 (19:45)
[2020-02-06] MEDS: POVIDONE (BETADINE) 10% SOLN 240 ML BTL TOP SCH (19:49)
[2020-02-06] MEDS ORDERED: LATANOPROST 0.005% (XALATAN) OPHTH SOLN 2.5 ML OU SCH (21:00)
[2020-02-06] MEDS ORDERED: DORZOLAMIDE/TIMOLOL (COSOPT) 2-0.68% 10 ML BTL OU SCH (21:00)
[2020-02-07 03:58] VITALS: BP 151/82
[2020-02-07 06:21] LABS: BASOPHILS % (AUTO) 0 % (0-10); EOSINOPHILS % (AUTO) 0 % (0-10); HEMATOCRIT 37 % (40-54); HEMOGLOBIN 12.5 G/DL (13.3-17.7); LYMPHOCYTES # (AUTO) 1.4 X 10^3 (1.0-4.0); LYMPHOCYTES % (AUTO) 30 % (12-44); MEAN CORPUSCULAR HEMOGLOBIN 30 PG (25-34); MEAN CORPUSCULAR HGB CONC 34 G/DL (32-36); MEAN CORPUSCULAR VOLUME 87 FL (80-99); MEAN PLATELET VOLUME 10.1 FL (7.4-10.4); MONOCYTES # (AUTO) 0.4 X 10^3 (0.0-1.0); MONOCYTES % (AUTO) 9 % (0-12); NEUTROPHILS # (AUTO) 2.9 X 10^3 (1.8-7.8); NEUTROPHILS % (AUTO) 61 % (42-75); PLATELET COUNT 155 10^3/uL (130-400); WHITE BLOOD COUNT 4.7 10^3/uL (4.3-11.0)
[2020-02-07 06:51] LABS: BUN/CREATININE RATIO 19; CALCIUM 8.1 MG/DL (8.5-10.1); CARBON DIOXIDE 27 MMOL/L (21-32); CHLORIDE 106 MMOL/L (98-107); CREATININE SERUM 0.93 MG/DL (0.60-1.30); GFR ESTIMATED > 60; GLUCOSE 93 MG/DL (70-105); MAGNESIUM 1.8 MG/DL (1.6-2.4); PHOSPHORUS 2.8 MG/DL (2.3-4.7); POTASSIUM 4.1 MMOL/L (3.6-5.0); SODIUM 139 MMOL/L (135-145)
[2020-02-07] MEDS: POTASSIUM CL 10MEQ/50ML IVPB 50 ML IV SCH (06:54)
[2020-02-07] MEDS: KCL 20 MEQ TAB (K-DUR) PO SCH (06:54)
[2020-02-07] MEDS: MAGNESIUM 1 GM/100 ML IVPB 100 ML IV SCH (06:54)
[2020-02-07 08:00] VITALS: BP 141/86
[2020-02-07] MEDS: REMDESIVIR INJ (NON-FORMULARY) 100 MG in NS (IVPB) 230 ML IV SCH (08:26)
[2020-02-07] MEDS: POVIDONE (BETADINE) 10% SOLN 240 ML BTL TOP SCH (08:27)
[2020-02-07] MEDS: KETOCONAZOLE 2% CREAM 15 GM (NIZORAL) TP SCH (08:28)
[2020-02-07] MEDS: PANTOPRAZOLE 40 MG (PROTONIX) TAB PO SCH (08:28)
[2020-02-07] MEDS: TAMSULOSIN 0.4 MG (FLOMAX) CAP PO SCH (08:28)
[2020-02-07] MEDS: ENOXAPARIN 80 MG/0.8 ML (LOVENOX) SYR SC SCH (08:29)
[2020-02-07] MEDS: AMOXICILLIN 500 MG (POLYMOX) CAP PO SCH ×2 (11:10→14:07)
[2020-02-07 11:11] VITALS: BP 138/75
[2020-02-07] MEDS ORDERED: LACTOBACILLUS ACIDOPHILUS (PROBIOTIC) CAPSULE PO SCH (13:00)
[2020-02-07] MEDS: LACTATED RINGERS 1,000 ML IV SCH (14:07)
[2020-02-07] MEDS ORDERED: LACT1CAP7 PO (15:07)
[2020-02-07] MEDS ORDERED: AMOX250S5 PO (15:07)
[2020-02-07 15:21] VITALS: BP 133/60
--- NOTE | 2020-02-07 15:35 | Discharge Summary ---
Discharge Summary Reconcile Patient Problems Problems Reviewed?: Yes Hospital Course Hospital Course Date of Admission: Feb 02, 2020 at 20:18 Admission Diagnosis : COVID-19 Family Physician/Provider: Pravin Proctor MD Date of Discharge: 02/07/20 Discharge Diagnosis: COVID-19, staph aureus urinary tract infection Hospital Course: Azeem Russell is an 85-year-old male with severe dementia who was admitted with COVID-19. He was treated with IV Remdesivir and Decadron. He was on his base line oxygen requirement at the time of discharge. He was also found to have a urinary tract infection caused by methicillin sensitive staph aureus. He was given a course of amoxicillin. He did have a positive blood culture which appeared to be contaminated. He has had issues with urinary retention and will be set up with daily bladder scans and straight catheterization as needed. He was discharged in stable condition back to [facility]. Labs and Pending Lab Test: Laboratory Tests 02/07/20 06:15: White Blood Count 4.7, Red Blood Count 4.24L, Hemoglobin 12.5L, Hematocrit 37L, Mean Corpuscular Volume 87, Mean Corpuscular Hemoglobin 30, Mean Corpuscular Hemoglobin Concent 34, Red Cell Distribution Width 15.2H, Platelet Count 155, Mean Platelet Volume 10.1, Neutrophils (%) (Auto) 61, Lymphocytes (%) (Auto) 30, Monocytes (%) (Auto) 9, Eosinophils (%) (Auto) 0, Basophils (%) (Auto) 0, Neutrophils # (Auto) 2.9, Lymphocytes # (Auto) 1.4, Monocytes # (Auto) 0.4, Eosinophils # (Auto) 0.0, Basophils # (Auto) 0.0, Sodium Level 139, Potassium Level 4.1, Chloride Level 106, Carbon Dioxide Level 27, Anion Gap 6, Blood Urea Nitrogen 18, Creatinine 0.93, Estimat Glomerular Filtration Rate > 60, BUN/Creatinine Ratio 19, Glucose Level 93, Calcium Level 8.1L, Phosphorus Level 2.8, Magnesium Level 1.8 Microbiology 02/02/20 MRSA Screen - Final, Complete MRSA not isolated 02/02/20 Blood Culture - Final, Complete Enterococcus faecalis Staphylococcus haemolyticus See Comments 02/02/20 Urine Culture - Final, Complete Staphylococcus aureus Home Meds Active Amoxicillin 250 Mg/5 Ml Susp 2 Tsp PO TIDWM 10 Days Acidophilus-Pectin Capsule (Lactobacillus Acidophilus/Pect) 1 Each Capsule 2 Each PO TIDWM 30 Days Reported Promethazine Suppository (Promethazine HCl) 25 Mg Supp.rect 25 Mg RC Q6H PRN Dorzolamide-Timolol 2%-0.5% (Dorzolamide/Timolol/Pf) 1 Each Droperette 1 Each OU DAILY ALLOW 5 MINUTES BETWEEN EYE MEDS Latanoprost 2.5 Ml Drops 1 Drop OU HS Miralax (Polyethylene Glycol 3350) 17 Gm Powd.pack 17 Gm PO BID PRN Flomax (Tamsulosin HCl) 0.4 Mg Cap 0.4 Mg PO DAILY Miralax (Polyethylene Glycol 3350) 17 Gm Powd.pack 17 Gm PO DAILY Ketoconazole 15 Gm Cream..g. 1 Applic TP DAILY APPLY TO BOTH FEET FOR TINEA Acetaminophen 650 Mg Supp.rect 650 Mg RC Q4H PRN Albuterol Sulfate 2.5 Mg/3 Ml Vial.neb 2.5 Mg IH Q8H PRN Ondansetron HCl 4 Mg Tablet 4 Mg PO Q6H PRN Tylenol (Acetaminophen) 325 Mg Tablet 650 Mg PO Q4H PRN TAKES 2 (325 MG) TABLETS Instructions to Patient/Family Assessment/Instructions take medications as prescribed. Complete her course of antibiotics. He will need to remain in isolation on discharge. The health department will be in contact with you for further recommendations. Follow Up Appt.: next chcf rounds Skilled NF Admit to: [facility] Certification ([facility]) I certify that SNF services are required to be given on an inpatient basis because of the above named patient's need for longterm care on a continuing basis for the conditions(s) for which he/she was receiving inpatient hospital services prior to his/her transfer to the SNF. Alf Facility Order: Nursing Services, Physical Therapist Aide-Evaluate & Treat, Physical Therapy-Evaluate & Treat, Speech Language-Evaluate & Treat, Wound Care-Eval/Treat Oxygen Delivery Method: Nasal Cannula Discharge Diet: Other Diet (dysphagia) Daily Activity as Tolerated: Yes Resuscitation Status: Do Not Resuscitate Sandy Partida Feb 07, 2020 15:17 Discharge Physical Exam General: Other (uncooperative, nonverbal) HEENT: Atraumatic, Mucous Memb Moist/[place] Lungs: Clear to Auscultation, Normal Air Movement Heart: Regular Rate, Normal S1, Normal S2, No Murmurs Abdomen: Normal Bowel Sounds, Soft Extremities: No Edema, No Tenderness/Swelling Skin: No Rashes, Other (foot ulcers) Neuro: Other (diffuse motor weakness, aphasia) SANDY PARTIDA MD Feb 07, 2020 15:35
[2020-02-07] MEDS ORDERED: FLUC40SU PO (15:41)
[2020-02-07] MEDS ORDERED: RELABEL FOR HOME USE MC SCH (16:00)
--- NOTE | 2020-02-07 16:03 | NUR ---
THIS RN CALLED [facility] TO GIVE REPORT, RN WAS BUSY AT THE TIME OF CALL. THIS RN WAS ASKED TO CALL BACK AT A LATER TIME. WILL RETRY
--- NOTE | 2020-02-07 16:13 | NUR ---
CM/SS finalized discharge. Plan: Patient will discharge back to [facility] today 02/06 with orders for PT, OT, SN, ST, and Wound Care. Physician also put in order for bladder scanning daily and Oxygen PRN. supervisor personnel clerks time set for 4:00 p.m. [facility]: CM/SS contacted Sapna from [facility] to inform her of patient's possible discharge. CM/SS asked for a late pecan picker time of 4:00 p.m. to check if patient was able to void his bladder. CM/SS contacted Sapna to inform her patient was able to urinate and is ready for discharge today. supervisor personnel clerks time set for 4:00 p.m. CM/SS faxed finalize discharge orders. Medications will be sent with patient to facility for next day use. CM/SS contacted the patient's daughter Georgette to discuss discharge. She verbalized many questions for discharge. CM/SS coordinated with Pharmacist and Physician to help answer Georgette's questions. All questions met at this time. No further needs at this time.
[2020-02-07] MEDS ORDERED: AMOXICILLIN 250 MG/5 ML 100 ML BTL PO SCH ×2 (16:15→21:00)
--- NOTE | 2020-02-07 16:41 | NUR ---
REPORT GIVEN TO SAYRA HERNANDEZ AT [facility]. PT CURRENTLY IN TRANSPORT
--- NOTE | 2020-02-07 17:18 | Cardiology Progress Note ---
Cardiology SOAP Progress Note Subjective: atrial fibrillation with controlled ventricular rate. Objective: I&O/Vital Signs 02/07/20 02/07/20 02/07/20 02/07/20 07:00 08:00 09:00 11:11 Temp 36.0 Pulse 72 53 85 Resp 20 18 B/P (MAP) 141/86 (104) 138/75 (96) Pulse Ox 94 97 O2 Delivery Nasal Cannula Nasal Cannula Nasal Cannula O2 Flow Rate 2.00 2.00 2.00 02/07/20 02/07/20 15:21 15:35 Temp 36.2 Pulse 66 Resp 20 B/P (MAP) 133/60 (84) Pulse Ox 93 O2 Delivery Nasal Cannula Nasal Cannula O2 Flow Rate 2.00 02/07/20 00:00 Intake Total 800 ml Output Total 2050 ml Balance -1250 ml Weight (Pounds): 173 Weight (Ounces): 6.0 Weight (Calculated Kilograms): 78.547455 Constitutional: appears stated age, AAO x 3; No apparent distress; well- developed, well-nourished Cardiovascular: No diastolic murmur, No systolic murmur Gastrointestional: No spleenomegaly Extremities: normal inspection; No clubbing, No cyanosis; no lower extremity edema bilateral; No significant edema Neurologic/Psychiatric: alert, normal mood/affect, power is 5/5 both on sides Skin: normal color, warm/dry, other (febrile to the touch) Results/Procedures: Labs Laboratory Tests 02/07/20 06:15: White Blood Count 4.7, Red Blood Count 4.24L, Hemoglobin 12.5L, Hematocrit 37L, Mean Corpuscular Volume 87, Mean Corpuscular Hemoglobin 30, Mean Corpuscular Hemoglobin Concent 34, Red Cell Distribution Width 15.2H, Platelet Count 155, Mean Platelet Volume 10.1, Neutrophils (%) (Auto) 61, Lymphocytes (%) (Auto) 30, Monocytes (%) (Auto) 9, Eosinophils (%) (Auto) 0, Basophils (%) (Auto) 0, Neutrophils # (Auto) 2.9, Lymphocytes # (Auto) 1.4, Monocytes # (Auto) 0.4, Eosinophils # (Auto) 0.0, Basophils # (Auto) 0.0, Sodium Level 139, Potassium Level 4.1, Chloride Level 106, Carbon Dioxide Level 27, Anion Gap 6, Blood Urea Nitrogen 18, Creatinine 0.93, Estimat Glomerular Filtration Rate > 60, BUN/Creatinine Ratio 19, Glucose Level 93, Calcium Level 8.1L, Phosphorus Level 2.8, Magnesium Level 1.8 Microbiology 02/02/20 MRSA Screen - Final, Complete MRSA not isolated 02/02/20 Blood Culture - Final, Complete Enterococcus faecalis Staphylococcus haemolyticus See Comments 02/02/20 Urine Culture - Final, Complete Staphylococcus aureus A/P: Assessment/Dx: COVID-19 positive, UTI sepsis, Paroxysmal atrial fibrillation, CAD, Acute kidney injury Plan: COVID-19 positive, significantly improved. UTI sepsis, on IV antibiotics.resolved. Paroxysmal atrial fibrillation, currently in atrial fibrillation with controlled ventricular rate.. Patient does not do well on IV Cardizem as per daughter who is a hospitalist. Therefore if the patient becomes A. fib RVR, we will use IV amiodarone. CAD,no active issues. Acute kidney injury, defer to Dr. Lyons. Thank you for your consultation. Please call me if you have any questions. Ralph Rico MD, FACP, FACC, FSCAI, FHRS, CCDS Interventional Cardiology Cardiac Electrophysiology Vascular Medicine and Endovascular Interventions Mary RICO MD Feb 07, 2020 17:18
[2020-02-08] MEDS ORDERED: dexAMETHasone 6 MG TAB (DECADRON) PO SCH (07:00)
[2020-02-09] MEDS ORDERED: TROUGH ORDER-PHARMACY XX NR (16:00)
--- NOTE | 2020-02-25 14:56 | Physician Query Clarification ---
PQ-Further Specificity Admission/Discharge Admission Date: Feb 02, 2020 at 20:18 Discharge Date: Feb 07, 2020 at 16:35 The medical record reflects the following clinical scenario: History/Risk Factors: UTI Acute renal failure COVID19 Clinical Findings: eGFR 51, BUN 19, Creatinine 1.33 Treatment: IV fluids, IV Rocephin, IV Vancomycin Question: Can you further specify [diagnosis/condition] per the clinical i ndicators above? Please document a response in the Progress Notes or Discharge Summary. 1. Sepsis with severe sepsis 2. Sepsis (no severe sepsis) 3. NO sepsis 4. Other, with explanation of the clinical findings. 5. Clinically undetermined, no explanation for the clinical findings. PHYSICIAN RESPONSE Can you specify per above: Other, explanation/clinical finding Explanation/Clinical Findings Not sepsis Please remember a lack of response to the above will prompt a phone page by [facility]/Coding staff. In responding to this query, please exercise your independent professional judgment. The purpose of this communication is to more accurately reflect the complexity of your patients condition. The fact that a question is asked does not imply that any particular answer is desired or expected. Thank you for your timely response to this clarification. Requestors name: [ ] Phone # [ ] THIS PHYSICIAN QUERY FORM IS A PERMANENT PART OF THE MEDICAL RECORD HAI MEDEL Feb 25, 2020 14:56 SANDY CASE MD Mar 03, 2020 07:28
== END 2020-02-07 16:35 | DRG 178 ==
LOC: EDUNIT# 18:08 → ER 18:09 → ICU 20:18 → 4TH 02-04 12:40
PROVIDERS: ADMIT Internal Medicine Critical Care Medicine; ATTEND Internal Medicine
PROC: XW033E5 Introduction of Remdesivir Anti-infective into Peripheral Vein, Percutaneous Approach, New Technology Group 5 (ICD-10-PCS; principal; 2020-02-03)
DX: U07.1 COVID-19 (principal); N39.0 Urinary tract infection, site not specified; N17.9 Acute kidney failure, unspecified; E87.2 Acidosis; F03.91 Unspecified dementia, unspecified severity, with behavioral disturbance; R78.81 Bacteremia; Z66 Do not resuscitate; I48.0 Paroxysmal atrial fibrillation; R00.1 Bradycardia, unspecified; D64.9 Anemia, unspecified; D69.6 Thrombocytopenia, unspecified; B95.61 Methicillin susceptible Staphylococcus aureus infection as the cause of diseases classified elsewhere; R53.81 Other malaise; B95.2 Enterococcus as the cause of diseases classified elsewhere; I10 Essential (primary) hypertension; K21.9 Gastro-esophageal reflux disease without esophagitis; R13.10 Dysphagia, unspecified; K59.09 Other constipation; H40.9 Unspecified glaucoma; G47.9 Sleep disorder, unspecified; F32.9 Major depressive disorder, single episode, unspecified; R26.0 Ataxic gait; I25.10 Atherosclerotic heart disease of native coronary artery without angina pectoris; R29.6 Repeated falls; B35.3 Tinea pedis; R33.9 Retention of urine, unspecified; Z99.81 Dependence on supplemental oxygen; Z95.5 Presence of coronary angioplasty implant and graft; Z86.79 Personal history of other diseases of the circulatory system
CPT/HCPCS: 36415; 71045; 80048; 80053; 80202; 81000; 83605; 83615; 83735; 84100; 84145; 85025; 85610; 85730; 86141; 86850; 86900; 86901; 87040; 87077; 87081; 87088; 87186; 87804; 93005; 96374; 96375

== ENCOUNTER → 2020-02-21 | Outpatient (CLI) | payer MEDICARE ==
[~2020-02-21] MED LIST changes: +AMOX250S5 PO; +DORZ1DRO7 OU; +FLUC40SU PO; +LACT1CAP7 PO
== END ==
LOC: WOUNDCARE 16:10
PROVIDERS: ATTEND Surgery
DX: I70.235 Atherosclerosis of native arteries of right leg with ulceration of other part of foot (principal); I96 Gangrene, not elsewhere classified; L97.512 Non-pressure chronic ulcer of other part of right foot with fat layer exposed; F03.90 Unspecified dementia, unspecified severity, without behavioral disturbance, psychotic disturbance, mood disturbance, and anxiety; Z20.828 Contact with and (suspected) exposure to other viral communicable diseases

== ENCOUNTER → 2020-03-05 | Outpatient (CLI) | payer MEDICARE | LOC: WOUNDCARE 12:00 | PROVIDERS: ATTEND Surgery | DX: I70.235 Atherosclerosis of native arteries of right leg with ulceration of other part of foot (principal); F03.90 Unspecified dementia, unspecified severity, without behavioral disturbance, psychotic disturbance, mood disturbance, and anxiety; L97.512 Non-pressure chronic ulcer of other part of right foot with fat layer exposed ==

== ENCOUNTER → 2020-03-20 | Outpatient (CLI) | payer MEDICARE | LOC: WOUNDCARE 14:53 | PROVIDERS: ATTEND Surgery | DX: L97.512 Non-pressure chronic ulcer of other part of right foot with fat layer exposed (principal); I70.235 Atherosclerosis of native arteries of right leg with ulceration of other part of foot; F03.90 Unspecified dementia, unspecified severity, without behavioral disturbance, psychotic disturbance, mood disturbance, and anxiety ==

== ENCOUNTER → 2020-04-03 | Outpatient (CLI) | payer MEDICARE | LOC: WOUNDCARE 15:15 | PROVIDERS: ATTEND Surgery | DX: I70.235 Atherosclerosis of native arteries of right leg with ulceration of other part of foot (principal); L97.512 Non-pressure chronic ulcer of other part of right foot with fat layer exposed; I96 Gangrene, not elsewhere classified; F03.90 Unspecified dementia, unspecified severity, without behavioral disturbance, psychotic disturbance, mood disturbance, and anxiety ==

== ENCOUNTER → 2020-04-14 | Outpatient (CLI) | payer MEDICARE | LOC: WOUNDCARE 11:00 | PROVIDERS: ATTEND Surgery | DX: L97.512 Non-pressure chronic ulcer of other part of right foot with fat layer exposed (principal); I70.235 Atherosclerosis of native arteries of right leg with ulceration of other part of foot; F03.90 Unspecified dementia, unspecified severity, without behavioral disturbance, psychotic disturbance, mood disturbance, and anxiety; I96 Gangrene, not elsewhere classified; U07.1 COVID-19 ==

== ENCOUNTER → 2020-04-28 | Outpatient (CLI) | payer MEDICARE | LOC: WOUNDCARE 16:00 | PROVIDERS: ATTEND Surgery | DX: I70.235 Atherosclerosis of native arteries of right leg with ulceration of other part of foot (principal); I96 Gangrene, not elsewhere classified; F03.90 Unspecified dementia, unspecified severity, without behavioral disturbance, psychotic disturbance, mood disturbance, and anxiety; L97.514 Non-pressure chronic ulcer of other part of right foot with necrosis of bone ==

== ENCOUNTER → 2020-05-16 | Outpatient (CLI) | payer MEDICARE | LOC: WOUNDCARE 08:15 | PROVIDERS: ATTEND Surgery | DX: I70.235 Atherosclerosis of native arteries of right leg with ulceration of other part of foot (principal); I96 Gangrene, not elsewhere classified; L97.514 Non-pressure chronic ulcer of other part of right foot with necrosis of bone; F03.90 Unspecified dementia, unspecified severity, without behavioral disturbance, psychotic disturbance, mood disturbance, and anxiety ==

== ENCOUNTER → 2020-06-24 | Outpatient (CLI) | payer MEDICARE | LOC: WOUNDCARE 16:00 | PROVIDERS: ATTEND Surgery | DX: I96 Gangrene, not elsewhere classified (principal); L97.514 Non-pressure chronic ulcer of other part of right foot with necrosis of bone; I70.235 Atherosclerosis of native arteries of right leg with ulceration of other part of foot; F03.90 Unspecified dementia, unspecified severity, without behavioral disturbance, psychotic disturbance, mood disturbance, and anxiety ==

== ENCOUNTER → 2020-07-08 | Outpatient (CLI) | payer MEDICARE | LOC: WOUNDCARE 15:41 | PROVIDERS: ATTEND Surgery | DX: L97.514 Non-pressure chronic ulcer of other part of right foot with necrosis of bone (principal); I70.235 Atherosclerosis of native arteries of right leg with ulceration of other part of foot; F03.90 Unspecified dementia, unspecified severity, without behavioral disturbance, psychotic disturbance, mood disturbance, and anxiety; I96 Gangrene, not elsewhere classified ==

== ENCOUNTER → 2020-07-25 | Outpatient (CLI) | payer MEDICARE | LOC: WOUNDCARE 09:56 | PROVIDERS: ATTEND Orthopaedic Surgery Hand Surgery | DX: L97.514 Non-pressure chronic ulcer of other part of right foot with necrosis of bone (principal); I70.235 Atherosclerosis of native arteries of right leg with ulceration of other part of foot; F03.90 Unspecified dementia, unspecified severity, without behavioral disturbance, psychotic disturbance, mood disturbance, and anxiety; I96 Gangrene, not elsewhere classified ==

== ENCOUNTER → 2020-08-08 | Outpatient (CLI) | payer MEDICARE | LOC: WOUNDCARE 09:30 | PROVIDERS: ATTEND Orthopaedic Surgery Hand Surgery | DX: L97.514 Non-pressure chronic ulcer of other part of right foot with necrosis of bone (principal); I70.235 Atherosclerosis of native arteries of right leg with ulceration of other part of foot; F03.90 Unspecified dementia, unspecified severity, without behavioral disturbance, psychotic disturbance, mood disturbance, and anxiety; I96 Gangrene, not elsewhere classified ==

== ENCOUNTER → 2020-08-22 | Outpatient (CLI) | payer MEDICARE | LOC: WOUNDCARE 09:30 | PROVIDERS: ATTEND Orthopaedic Surgery Hand Surgery | DX: I96 Gangrene, not elsewhere classified (principal); L97.512 Non-pressure chronic ulcer of other part of right foot with fat layer exposed; I70.235 Atherosclerosis of native arteries of right leg with ulceration of other part of foot; F03.90 Unspecified dementia, unspecified severity, without behavioral disturbance, psychotic disturbance, mood disturbance, and anxiety ==

== ENCOUNTER → 2020-09-12 | Outpatient (CLI) | payer MEDICARE | LOC: WOUNDCARE 09:30 | PROVIDERS: ATTEND Orthopaedic Surgery Hand Surgery | DX: I70.261 Atherosclerosis of native arteries of extremities with gangrene, right leg (principal); L97.512 Non-pressure chronic ulcer of other part of right foot with fat layer exposed; F03.90 Unspecified dementia, unspecified severity, without behavioral disturbance, psychotic disturbance, mood disturbance, and anxiety ==

== ENCOUNTER → 2020-09-26 | Outpatient (CLI) | payer MEDICARE | LOC: WOUNDCARE 09:30 | PROVIDERS: ATTEND Orthopaedic Surgery Hand Surgery | DX: L97.512 Non-pressure chronic ulcer of other part of right foot with fat layer exposed (principal); I70.235 Atherosclerosis of native arteries of right leg with ulceration of other part of foot; F03.90 Unspecified dementia, unspecified severity, without behavioral disturbance, psychotic disturbance, mood disturbance, and anxiety; I96 Gangrene, not elsewhere classified ==

== ENCOUNTER → 2020-10-10 | Outpatient (CLI) | payer MEDICARE | LOC: WOUNDCARE 09:30 | PROVIDERS: ATTEND Orthopaedic Surgery Hand Surgery | DX: I96 Gangrene, not elsewhere classified (principal); L97.512 Non-pressure chronic ulcer of other part of right foot with fat layer exposed; I70.235 Atherosclerosis of native arteries of right leg with ulceration of other part of foot; F03.90 Unspecified dementia, unspecified severity, without behavioral disturbance, psychotic disturbance, mood disturbance, and anxiety ==

== ENCOUNTER → 2020-10-24 | Outpatient (CLI) | payer MEDICARE | LOC: WOUNDCARE 09:30 | PROVIDERS: ATTEND Orthopaedic Surgery Hand Surgery | DX: L97.512 Non-pressure chronic ulcer of other part of right foot with fat layer exposed (principal); I70.235 Atherosclerosis of native arteries of right leg with ulceration of other part of foot; F03.90 Unspecified dementia, unspecified severity, without behavioral disturbance, psychotic disturbance, mood disturbance, and anxiety; I96 Gangrene, not elsewhere classified ==

== ENCOUNTER → 2020-11-07 | Outpatient (CLI) | payer MEDICARE | LOC: WOUNDCARE 09:30 | PROVIDERS: ATTEND Orthopaedic Surgery Hand Surgery | DX: I96 Gangrene, not elsewhere classified (principal); L97.512 Non-pressure chronic ulcer of other part of right foot with fat layer exposed; I70.235 Atherosclerosis of native arteries of right leg with ulceration of other part of foot; F03.90 Unspecified dementia, unspecified severity, without behavioral disturbance, psychotic disturbance, mood disturbance, and anxiety ==

== ENCOUNTER → 2020-11-21 | Outpatient (CLI) | payer MEDICARE | LOC: WOUNDCARE 09:30 | PROVIDERS: ATTEND Orthopaedic Surgery Hand Surgery | DX: L97.511 Non-pressure chronic ulcer of other part of right foot limited to breakdown of skin (principal); I70.235 Atherosclerosis of native arteries of right leg with ulceration of other part of foot; F03.90 Unspecified dementia, unspecified severity, without behavioral disturbance, psychotic disturbance, mood disturbance, and anxiety; I96 Gangrene, not elsewhere classified ==